=== PATIENT | female | born 1980 | race Caucasian/White ===

== ENCOUNTER 2016-10-14 08:51 | Inpatient (IN) ==
[~2016-10-14 08:51] MED LIST: Aminoglycoside Consult 1 EACH MC ONE
[2016-10-14] MEDS ORDERED: 0.9 % Sodium Chloride 1,000 ML IVC ONE ×3 (08:59→11:59)
[2016-10-14] MEDS ORDERED: Ipratropium/Albuterol Neb 3 ML IH ONE (09:00)
--- NOTE | 2016-10-14 09:12 | Emergency Department Note ---
Disposition Clinical Impression: Cough, Nausea & vomiting Disposition: Still a Patient Condition: Fair Referrals: Domingo Humphrey DO [Primary Care Provider] - Forms: Work/School Release, ED Satisfaction Letter Time of Disposition: 11:40 General Adult HPI - General Chief complaint: ED General Medical Stated complaint: General Illness Time Seen by Provider: 10/14/16 08:58 Source: patient Mode of arrival: private vehicle Limitations: no limitations Nursing Notes Reviewed: Yes Vital Signs Reviewed: Yes - History of Present Illness HPI Narrative: 36-year-old female patient presents to the emergency department with multiple complaints. Patient states that she has been ill for the last 4 days. She describes cough, nausea, vomiting and diarrhea. She also states a subjective fever and chills. She denies any additional complaints at this time. Pt Subjective Complaint: "ill" Onset (ago): day(s) (4) Location: other (Generalized) Radiation: non-radiation Pain Severity: severe Quality: aching, dull, constant Consistency: constant, Worsening Improves with: nothing Worsens with: nothing Associated symptoms: Reports: cough, fever/chills, nausea/vomiting Treatments Prior to Arrival: none - Related Data Home Medications Medication Instructions Recorded Confirmed Insulin ASPART [NovoLOG] 85 unit SQ AD 04/17/15 08/23/16 Labetalol [Trandate] 100 mg PO BID 04/17/15 08/23/16 Lisinopril [Zestril] 10 mg PO DAILY 04/17/15 08/23/16 Albuterol Sulfate [Albuterol 1 - 2 puff IH Q4HR PRN 06/19/15 08/23/16 Inhaler] Gabapentin [Neurontin] 800 mg PO TID 06/19/15 08/23/16 LORazepam [Ativan] 2 mg PO TID 06/19/15 08/23/16 Lamotrigine [Lamictal] 100 mg PO QAM 06/15/16 08/23/16 Estradiol 2 mg PO DAILY 08/03/16 08/23/16 Esomeprazole Magnesium [Nexium] 40 mg PO BID 08/23/16 08/23/16 Previous Rx's Medication Instructions Recorded Orphenadrine [Norflex] 100 mg PO BID #14 tablet.er 12/08/15 Ondansetron ODT [Zofran ODT] 4 mg SL Q6HR PRN #8 tab.rapdis 08/17/16 Sulfamethoxazole/Trimeth DS 1 each PO BID #20 tablet 08/23/16 [Bactrim DS] Cephalexin [Keflex] 500 mg PO TID #21 capsule 08/24/16 Allergies Allergy/AdvReac Type Severity Reaction Status Date / Time Cortisone Allergy Anaphylaxis Verified 08/24/16 12:01 ketorolac [From Toradol] Allergy Rash Verified 08/24/16 12:01 latex Allergy Hives Verified 08/24/16 12:01 metoclopramide [From Reglan] Allergy Anaphylaxis Verified 08/24/16 12:01 morphine Allergy Anaphylaxis Verified 08/24/16 12:01 tramadol [From Ultram] AdvReac Nausea Verified 08/24/16 12:01 Zolpidem [From Ambien] AdvReac Insomnia Verified 08/24/16 12:01 All systems ED: reviewed and negative except as stated. Constitutional: Reports: fever, chills Cardiovascular: Denies: chest pain Respiratory: Reports: cough, dyspnea, wheezes, hemoptysis Gastrointestinal: Reports: nausea, vomiting. Denies: abdominal pain Genitourinary: Denies: urgency, dysuria, frequency Musculoskeletal: Reports: myalgia. Denies: back pain, neck pain Integumentary: Denies: rash, abrasion, lesions Neurological: Denies: headache Psychiatric: Denies: anxiety, depression, suicidal thoughts, homicidal thoughts Past Medical History - Past Medical History Attestation: Yes The following information was validated with the patient. Source: patient, nursing notes reviewed Medical history: Reports: asthma, diabetes, GERD, hypertension Surgical history: Reports: appendectomy, cholecystectomy, hysterectomy, other ( lTKE, humeral nailing, T&A, hysterectomy , carpal tunnel BL.) Psychiatric history: Reports: anxiety, depression, panic disorder SENIOR ECONOMIST history: Reports: no SENIOR ECONOMIST history - Social History Smoking Status: Former smoker Smokeless Tobacco Status: No Alcohol use: Reports: none Drug use: Reports: none Physical Exam - General Limitations: no limitations General appearance: alert, in no apparent distress - Head Head exam: atraumatic, normocephalic, normal inspection - Eye Eye exam: Present: normal appearance, PERRL - Neck Neck exam: Present: normal inspection, full ROM, trachea midline - Chest Chest inspection: Present: normal inspection, symmetric chest wall rise, tenderness (With palpation of the right lateral/lower chest wall. Pain with inspiration.) - Expanded Respiratory Exam Location: wheezes: Lower, Upper, Right, rhonchi: Right, Upper, Lower - Cardiovascular Cardiovascular exam: Present: regular rate, normal rhythm, normal heart sounds - Abdominal Exam Abdominal exam: Present: soft, Non-Tender, normal bowel sounds - Extremities Exam Extremities exam: Present: normal inspection, full ROM. Absent: tenderness, pedal edema - Back Exam Back exam: Present: normal inspection, full ROM. Absent: tenderness - Neurological Exam Neurological exam: Present: alert, oriented X3 - Psychiatric Psychiatric exam: Present: normal affect, normal mood - Skin Skin exam: Present: warm, dry, intact, normal color Course Course Narrative: Care was transferred to Dr. Carrillo at 1120. - Reevaluation(s) Reevaluation #1: Patient continues to complain of pain. I discussed with patient that she would not be receiving any Dilaudid while she was here and evaluated. She remains mildly tachycardic. Patient has difficulty opening her eyes which suggests that she is currently under the influence of some type of drugs or alcohol. Patient currently denies this, however seems extremely drowsy and somnolent. Due to the tachycardia I have ordered a CTA of the chest to rule out pulmonary embolism versus pneumonia. Labs show mild dehydration. But no evidence of anemia or sepsis. Time: 10:43 Vital Signs Temperature 98.0 F 10/14/16 08:54 Pulse Rate 113 10/14/16 08:54 Respiratory Rate 18 10/14/16 08:54 Blood Pressure 120/64 10/14/16 08:54 O2 Sat by Pulse Oximetry 92 L 10/14/16 08:54 Temperature 98.0 F 10/14/16 08:54 Pulse Rate 120 10/14/16 10:27 Respiratory Rate 18 10/14/16 10:27 Blood Pressure 135/69 10/14/16 10:27 O2 Sat by Pulse Oximetry 96 10/14/16 10:27 Oxygen Delivery Oxygen Delivery Room Air Medical Decision Making - Lab Data Lab results reviewed: Yes I reviewed the patient's lab results. Result diagrams: 10/14/16 09:25 10/14/16 09:25 Lab Results 02/15/17 02/15/17 02/15/17 Range/Units 09:25 09:25 10:22 WBC 7.1 (4.3-11.1) K/mcL RBC 3.83 (3.82-4.97) M/mcL Hgb 11.4 L (11.5-15.4) g/dL Hct 33.9 L (35.3-44.9) % MCV 88.5 (83.0-100.0) fL MCH 29.8 (28.0-33.3) pg MCHC 33.6 (31.6-35.5) g/dL RDW 12.9 (11.5-14.5) % Plt Count 140 (140-400) K/mcL MPV 10.6 (9.4-12.4) fL Seg Neutrophils % 60.0 % Band Neutrophils % 18.0 H (0-4) % Lymphocytes % 8.0 % Monocytes % 12.0 % Basophils % 2.0 % Neutrophils # 5.5 (1.6-8.9) K/mcL Lymphocytes # 0.6 (0.6-4.6) K/mcL Monocytes # 0.9 (0.0-1.3) K/mcL Basophils # 0.1 (0.0-0.2) K/mcL Nucleated RBCs/100 WBC 0.3 H (0) /100 WBC Toxic Granulation Present A (Not Present) Platelet Estimate Slight Decrease L (Normal) Sodium 136 (136-145) mEq/L Potassium 4.0 (3.5-4.5) mEq/L Chloride 107 (98-109) mEq/L Carbon Dioxide 17 L (19-29) mEq/L BUN 27 H (7-20) mg/dL Creatinine 1.28 H (0.57-1.11) mg/dL Est GFR ( Amer) 58 L (> 60) Est GFR (Non-Af Amer) 47 L (> 60) BUN/Creatinine Ratio 21 (6-26) Glucose 168 H (70-99) mg/dL Calculated Osmolality 291 (280-300) Calcium 8.0 L (8.6-10.8) mg/dL Urine Color (Yellow) Urine Clarity (Clear) Urine pH (5.0-8.0) pH Units Ur Specific [place] (1.010-1.025) Urine Protein (Neg-Trace) mg/dL Urine Glucose (UA) (Normal) mg/dL Urine Ketones (Negative) mg/dL Urine Blood (Negative) Urine Nitrite (Negative) Urine Bilirubin (Negative) Urine Urobilinogen (Normal) mg/dL Ur Leukocyte Esterase (Negative) Urine Microscopic RBC (0-3) per hpf Urine Microscopic WBC (0-3) per hpf Ur Squamous Epith Cells (None-Few) per lpf Calcium Oxalate Crystal Urine Bacteria (None-Few) per hpf Hyaline Casts (None-Few) per lpf Ur Culture Indicated? (NO) Urine Test Negative (Negative) 10/14/16 Range/Units 10:26 WBC (4.3-11.1) K/mcL RBC (3.82-4.97) M/mcL Hgb (11.5-15.4) g/dL Hct (35.3-44.9) % MCV (83.0-100.0) fL MCH (28.0-33.3) pg MCHC (31.6-35.5) g/dL RDW (11.5-14.5) % Plt Count (140-400) K/mcL MPV (9.4-12.4) fL Seg Neutrophils % % Band Neutrophils % (0-4) % Lymphocytes % % Monocytes % % Basophils % % Neutrophils # (1.6-8.9) K/mcL Lymphocytes # (0.6-4.6) K/mcL Monocytes # (0.0-1.3) K/mcL Basophils # (0.0-0.2) K/mcL Nucleated RBCs/100 WBC (0) /100 WBC Toxic Granulation (Not Present) Platelet Estimate (Normal) Sodium (136-145) mEq/L Potassium (3.5-4.5) mEq/L Chloride (98-109) mEq/L Carbon Dioxide (19-29) mEq/L BUN (7-20) mg/dL Creatinine (0.57-1.11) mg/dL Est GFR ( Amer) (> 60) Est GFR (Non-Af Amer) (> 60) BUN/Creatinine Ratio (6-26) Glucose (70-99) mg/dL Calculated Osmolality (280-300) Calcium (8.6-10.8) mg/dL Urine Color Dark Yellow (Yellow) Urine Clarity Cloudy A (Clear) Urine pH 5.5 (5.0-8.0) pH Units Ur Specific [place] 1.017 (1.010-1.025) Urine Protein 30 H (Neg-Trace) mg/dL Urine Glucose (UA) 100 H (Normal) mg/dL Urine Ketones Negative (Negative) mg/dL Urine Blood Trace H (Negative) Urine Nitrite Positive A (Negative) Urine Bilirubin Moderate H (Negative) Urine Urobilinogen 2.0 H (Normal) mg/dL Ur Leukocyte Esterase Large H (Negative) Urine Microscopic RBC 5-15 H (0-3) per hpf Urine Microscopic WBC TNTC H (0-3) per hpf Ur Squamous Epith Cells Many H (None-Few) per lpf Calcium Oxalate Crystal Present Urine Bacteria Many H (None-Few) per hpf Hyaline Casts None Seen (None-Few) per lpf Ur Culture Indicated? YES A (NO) Urine Test (Negative) - Radiology Data Radiology results reviewed: Yes I reviewed the patient's radiology results.
[2016-10-14] MEDS ORDERED: *HR* Nalbuphine 20 MG/ML AMPUL IVP ONE (09:15)
[2016-10-14] MEDS ORDERED: *HR* Promethazine 25 MG/ML VIAL IVP ONE (09:33)
[2016-10-14 09:48] LABS: Hematocrit 33.9 % (35.3-44.9); Hemoglobin 11.4 g/dL (11.5-15.4); Mean Corpuscular HGB Conc 33.6 g/dL (31.6-35.5); Mean Corpuscular Hemoglobin 29.8 pg (28.0-33.3); Mean Corpuscular Volume 88.5 fL (83.0-100.0); Mean Platelet Volume 10.6 fL (9.4-12.4); Nucleated Red Blood Cells 0.3 /100 WBC (0); Platelet Count 140 K/mcL (140-400); Red Blood Count 3.83 M/mcL (3.82-4.97); Red Cell Distribution Width 12.9 % (11.5-14.5)
[2016-10-14 10:40] LABS: Basophils # 0.1 K/mcL (0.0-0.2); Lymphocytes # 0.6 K/mcL (0.6-4.6); Monocytes # 0.9 K/mcL (0.0-1.3); Neutrophils # 5.5 K/mcL (1.6-8.9); Toxic Granulation Present (Not Present)
[2016-10-14 10:41] LABS: Platelet Estimate Slight Decrease (Normal)
[2016-10-14 10:42] LABS: Bilirubin,Urine Moderate (Negative); Blood,Urine Trace (Negative); Clarity,Urine Cloudy (Clear); Color,Urine Dark Yellow (Yellow); Glucose,Urine (UA) 100 mg/dL (Normal); Ketones,Urine Negative (Negative); Leukocyte Esterase,Urine Large (Negative); Nitrite,Urine Positive (Negative); PH,Urine 5.5 pH Units (5.0-8.0); Protein,Urine 30 mg/dL (Neg-Trace); Specific Gravity,Urine 1.017 (1.010-1.025)
[2016-10-14 10:44] LABS: Bacteria,Urine Many per hpf (None-Few); Hyaline Casts,Urine None Seen per lpf (None-Few); Squamous Epithelial Cell,Urine Many per lpf (None-Few); WBC,Urine TNTC per hpf (0-3)
[2016-10-14 10:54] LABS: Calcium Oxalate Crystals,Urine Present
[2016-10-14] MEDS ORDERED: *HR* HYDROmorphone (PF) 1 MG/ML SYRINGE IVP ONE (11:32)
--- NOTE | 2016-10-14 11:37 | Emergency Department Note ---
Disposition Clinical Impression: Sepsis due to pneumonia Chest pain Qualifiers: Chest pain type: unspecified Qualified Code(s): R07.9 - Chest pain, unspecified UTI (urinary tract infection) Qualifiers: Urinary tract infection type: site unspecified Hematuria presence: with hematuria Qualified Code(s): N39.0 - Urinary tract infection, site not specified Disposition: Admitted As Inpatient Condition: Serious Referrals: Domingo Humphrey DO [Primary Care Provider] - Forms: ED Satisfaction Letter, Work/School Release Time of Disposition: 11:49 General Adult HPI - General Chief complaint: ED General Medical Stated complaint: Multiple Complaints Time Seen by Provider: 10/14/16 08:58 Source: patient Mode of arrival: private vehicle Limitations: no limitations - History of Present Illness Location: other (Generalized) Pain Scale: 9 Quality: aching, dull, constant Improves with: nothing Worsens with: nothing Associated symptoms: Reports: cough, fever/chills, nausea/vomiting Treatments Prior to Arrival: none - Related Data Home Medications Medication Instructions Recorded Confirmed Insulin ASPART [NovoLOG] 85 unit SQ AD 04/17/15 08/23/16 Labetalol [Trandate] 100 mg PO BID 04/17/15 08/23/16 Lisinopril [Zestril] 10 mg PO DAILY 04/17/15 08/23/16 Albuterol Sulfate [Albuterol 1 - 2 puff IH Q4HR PRN 06/19/15 08/23/16 Inhaler] Gabapentin [Neurontin] 800 mg PO TID 06/19/15 08/23/16 LORazepam [Ativan] 2 mg PO TID 06/19/15 08/23/16 Lamotrigine [Lamictal] 100 mg PO QAM 06/15/16 08/23/16 Estradiol 2 mg PO DAILY 08/03/16 08/23/16 Esomeprazole Magnesium [Nexium] 40 mg PO BID 08/23/16 08/23/16 Previous Rx's Medication Instructions Recorded Orphenadrine [Norflex] 100 mg PO BID #14 tablet.er 12/08/15 Ondansetron ODT [Zofran ODT] 4 mg SL Q6HR PRN #8 tab.rapdis 08/17/16 Sulfamethoxazole/Trimeth DS 1 each PO BID #20 tablet 08/23/16 [Bactrim DS] Cephalexin [Keflex] 500 mg PO TID #21 capsule 08/24/16 Allergies Allergy/AdvReac Type Severity Reaction Status Date / Time Cortisone Allergy Anaphylaxis Verified 08/24/16 12:01 ketorolac [From Toradol] Allergy Rash Verified 08/24/16 12:01 latex Allergy Hives Verified 08/24/16 12:01 metoclopramide [From Reglan] Allergy Anaphylaxis Verified 08/24/16 12:01 morphine Allergy Anaphylaxis Verified 08/24/16 12:01 tramadol [From Ultram] AdvReac Nausea Verified 08/24/16 12:01 Zolpidem [From Ambien] AdvReac Insomnia Verified 08/24/16 12:01 Constitutional: Reports: fever, chills Cardiovascular: Denies: chest pain Respiratory: Reports: cough, dyspnea, wheezes, hemoptysis Gastrointestinal: Reports: nausea, vomiting. Denies: abdominal pain Genitourinary: Denies: urgency, dysuria, frequency Musculoskeletal: Reports: myalgia. Denies: back pain, neck pain Integumentary: Denies: rash, abrasion, lesions Neurological: Denies: headache Psychiatric: Denies: anxiety, depression, suicidal thoughts, homicidal thoughts Past Medical History - Past Medical History Medical history: Reports: asthma, diabetes, GERD, hypertension Surgical history: Reports: appendectomy, cholecystectomy, hysterectomy, other ( lTKE, humeral nailing, T&A, hysterectomy , carpal tunnel BL.) Psychiatric history: Reports: anxiety, depression, panic disorder RESIDENTIAL SUPPORT WORKER history: Reports: no RESIDENTIAL SUPPORT WORKER history - Social History Smoking Status: Former smoker Smokeless Tobacco Status: No Alcohol use: Reports: none Drug use: Reports: none Physical Exam - General Limitations: no limitations General appearance: alert, in no apparent distress Course Vital Signs Temperature 98.0 F 10/14/16 08:54 Pulse Rate 113 10/14/16 08:54 Respiratory Rate 18 10/14/16 08:54 Blood Pressure 120/64 10/14/16 08:54 O2 Sat by Pulse Oximetry 92 L 10/14/16 08:54 Temperature 98.0 F 10/14/16 08:54 Pulse Rate 130 10/14/16 12:00 Respiratory Rate 22 10/14/16 12:00 Blood Pressure 104/60 10/14/16 12:00 O2 Sat by Pulse Oximetry 92 L 10/14/16 12:00 Oxygen Delivery Oxygen Delivery Room Air Medical Decision Making - Medical Records Medical records reviewed: Yes I reviewed the patient's medical records. - Lab Data Lab results reviewed: Yes I reviewed the patient's lab results. Result diagrams: 10/14/16 09:25 10/14/16 09:25 Lab Results 10/14/16 10/14/16 10/14/16 Range/Units 09:25 09:25 10:22 WBC 7.1 (4.3-11.1) K/mcL RBC 3.83 (3.82-4.97) M/mcL Hgb 11.4 L (11.5-15.4) g/dL Hct 33.9 L (35.3-44.9) % MCV 88.5 (83.0-100.0) fL MCH 29.8 (28.0-33.3) pg MCHC 33.6 (31.6-35.5) g/dL RDW 12.9 (11.5-14.5) % Plt Count 140 (140-400) K/mcL MPV 10.6 (9.4-12.4) fL Seg Neutrophils % 60.0 % Band Neutrophils % 18.0 H (0-4) % Lymphocytes % 8.0 % Monocytes % 12.0 % Basophils % 2.0 % Neutrophils # 5.5 (1.6-8.9) K/mcL Lymphocytes # 0.6 (0.6-4.6) K/mcL Monocytes # 0.9 (0.0-1.3) K/mcL Basophils # 0.1 (0.0-0.2) K/mcL Nucleated RBCs/100 WBC 0.3 H (0) /100 WBC Toxic Granulation Present A (Not Present) Platelet Estimate Slight Decrease L (Normal) Sodium 136 (136-145) mEq/L Potassium 4.0 (3.5-4.5) mEq/L Chloride 107 (98-109) mEq/L Carbon Dioxide 17 L (19-29) mEq/L BUN 27 H (7-20) mg/dL Creatinine 1.28 H (0.57-1.11) mg/dL Est GFR ( Amer) 58 L (> 60) Est GFR (Non-Af Amer) 47 L (> 60) BUN/Creatinine Ratio 21 (6-26) Glucose 168 H (70-99) mg/dL Calculated Osmolality 291 (280-300) Calcium 8.0 L (8.6-10.8) mg/dL Urine Color (Yellow) Urine Clarity (Clear) Urine pH (5.0-8.0) pH Units Ur Specific [place] (1.010-1.025) Urine Protein (Neg-Trace) mg/dL Urine Glucose (UA) (Normal) mg/dL Urine Ketones (Negative) mg/dL Urine Blood (Negative) Urine Nitrite (Negative) Urine Bilirubin (Negative) Urine Urobilinogen (Normal) mg/dL Ur Leukocyte Esterase (Negative) Urine Microscopic RBC (0-3) per hpf Urine Microscopic WBC (0-3) per hpf Ur Squamous Epith Cells (None-Few) per lpf Calcium Oxalate Crystal Urine Bacteria (None-Few) per hpf Hyaline Casts (None-Few) per lpf Ur Culture Indicated? (NO) Urine Test Negative (Negative) 10/14/16 Range/Units 10:26 WBC (4.3-11.1) K/mcL RBC (3.82-4.97) M/mcL Hgb (11.5-15.4) g/dL Hct (35.3-44.9) % MCV (83.0-100.0) fL MCH (28.0-33.3) pg MCHC (31.6-35.5) g/dL RDW (11.5-14.5) % Plt Count (140-400) K/mcL MPV (9.4-12.4) fL Seg Neutrophils % % Band Neutrophils % (0-4) % Lymphocytes % % Monocytes % % Basophils % % Neutrophils # (1.6-8.9) K/mcL Lymphocytes # (0.6-4.6) K/mcL Monocytes # (0.0-1.3) K/mcL Basophils # (0.0-0.2) K/mcL Nucleated RBCs/100 WBC (0) /100 WBC Toxic Granulation (Not Present) Platelet Estimate (Normal) Sodium (136-145) mEq/L Potassium (3.5-4.5) mEq/L Chloride (98-109) mEq/L Carbon Dioxide (19-29) mEq/L BUN (7-20) mg/dL Creatinine (0.57-1.11) mg/dL Est GFR ( Amer) (> 60) Est GFR (Non-Af Amer) (> 60) BUN/Creatinine Ratio (6-26) Glucose (70-99) mg/dL Calculated Osmolality (280-300) Calcium (8.6-10.8) mg/dL Urine Color Dark Yellow (Yellow) Urine Clarity Cloudy A (Clear) Urine pH 5.5 (5.0-8.0) pH Units Ur Specific [place] 1.017 (1.010-1.025) Urine Protein 30 H (Neg-Trace) mg/dL Urine Glucose (UA) 100 H (Normal) mg/dL Urine Ketones Negative (Negative) mg/dL Urine Blood Trace H (Negative) Urine Nitrite Positive A (Negative) Urine Bilirubin Moderate H (Negative) Urine Urobilinogen 2.0 H (Normal) mg/dL Ur Leukocyte Esterase Large H (Negative) Urine Microscopic RBC 5-15 H (0-3) per hpf Urine Microscopic WBC TNTC H (0-3) per hpf Ur Squamous Epith Cells Many H (None-Few) per lpf Calcium Oxalate Crystal Present Urine Bacteria Many H (None-Few) per hpf Hyaline Casts None Seen (None-Few) per lpf Ur Culture Indicated? YES A (NO) Urine Test (Negative) - Radiology Data Radiology results reviewed: Yes I reviewed the patient's radiology results. - EKG Data EKG #1 EKG attestation: Yes I reviewed and interpreted this EKG. EKG results narrative: sinus tach [address] changes. MT 159 QRS 90 QT/QTC 337/410 Critical Care Time Critical Care Time: Yes Total Critical Care Time: 30 Attestation: Patient meets criteria for sepsis. Antibiotics for community acquired pneumonia initiated. Fluid resuscitation at 30 mL per KG not entertained due to no hypotension. Patient to be admitted Attestation Statement - Attestation Attestation: I examined this patient and my medical decision-making was reviewed with the FACE WORKER/PA/Advanced Practice Nurse/Resident Physician. I agree with the documented findings, disposition and treatment plan as described except to the extent set forth below. 11:35: The patient was endorsed to me by the mid-level provider Cal Torres at 11:30 AM at my request. She was endorsed to me pending CT chest. On exam, the patient is anxious appearing anteriorly. She is tachycardic. I reviewed her labs indicating a left shift and a UTI. I am concerned for sepsis so I ordered a lactate and blood cultures. I also ordered an EKG which is pending. She is already being hydrated but I will not order 30 mL per KG because she is not hypotensive. 11:47: CTA resulted. Multifocal pneumonia present. Patient meets criteria for sepsis. Antibiotics for community acquired pneumonia ordered. I will request admission to the medicine service
[2016-10-14] MEDS ORDERED: Azithromycin 500 MG in D5% in Water 250 ML IVPB ONE (11:45)
[2016-10-14] MEDS ORDERED: MOM Conc 10 ML UD.LIQ PO PRN (13:38)
[2016-10-14] MEDS ORDERED: Mag Hydrox/Al Hydrox/Simeth 30 ML UDC PO PRN (13:38)
[2016-10-14] MEDS ORDERED: Ondansetron 4 MG/2 ML VIAL IVP PRN (13:38)
[2016-10-14] MEDS ORDERED: Naloxone 0.4 MG/ML INJ IVP PRN (13:38)
[2016-10-14] MEDS ORDERED: Dextrose Gel 15 GM PO PRN ×2 (13:41)
[2016-10-14] MEDS ORDERED: *HR* Dextrose 50 % in Water (Syg) 50 ML SYRINGE IVP PRN (13:41)
[2016-10-14] MEDS ORDERED: D5% in Water 1,000 ML IV PRN (13:41)
--- NOTE | 2016-10-14 13:52 | Internal Med History&Physical ---
<Yaneli Roblero Sreedhar - Last Filed: 10/14/16 16:24> Date of Encounter: 10/14/16 Time of Encounter: 14:10 Assessment and Plan (1) Sepsis due to pneumonia Current visit: Yes Status: Acute Pt with 3-4 day history of flu-like symptoms, n/v/d, fatige, and body aches. Symptoms worse today. Pt has been afebrile, tachycardic, so far normotensive, and multifocal pneumonia per CT. Pt reports subjective fevers and chills at home. Pt was given Zithromax 500mg IV and Rocephin 1 gram IV in ED. Fluid boluses were held in the ED due to stable bp. Continuous pulse oximetry Continuous telemetry IV fluids at 75ml/hour Vancomycin 1 gram q12 hours (2) UTI (urinary tract infection) Current visit: Yes Status: Acute Urine today with many WBCs, leukocyte esterase, Many RBC, positive for nitrites , and TNTC bacteria. Pt had 1 week history of suprapubic pain and isabel flank pain , however she did not have dysuria or sameer hematuria. Vancomycin 1 gram IV q12 h IVF as above Repeat UA prior to discharge Qualifiers: Urinary tract infection type: acute cystitis Hematuria presence: with hematuria Qualified Code(s): N30.01 - Acute cystitis with hematuria (3) Respiratory failure with hypoxia Current visit: Yes Status: Acute Room air sats around 92%. Sats remain around 94-95% on 2L 02/nc. Maintain 02 and titrate to keep sats > 92%. Qualifiers: Chronicity: acute Qualified Code(s): J96.01 - Acute respiratory failure with hypoxia (4) Diabetes mellitus type 1, uncontrolled, insulin dependent Current visit: No Status: Chronic Serum glucose 168 today. Pt says that she keeps her glucose between 150-160mg/ dl. Pt has pump, Novolog 85units/day. Will continue pump with pt checking blood sugars, report to nurse abrahan Qualifiers: Diabetes mellitus complication status: without complication (5) Acute kidney injury Current visit: No Status: Acute Pt has had history of this in the past with prior illness, but no CKD. Today creatinine 1.28. IVF as above Will avoid NSAIDs and nephrotoxins Monitor labs in a.m. (6) Chest pain Current visit: Yes Status: Acute Pt reports 8/10 sharp stabbing pain to R upper chest with radiation to R lateral ribs, and R mid back. Pain is constant, worse with cough. R upper chest tender to palpation. I discussed with pt that pain will decrease as infection clears and that she may still have rib/intercostal pain, but it will improve with time. Tylenol prn pain Qualifiers: Chest pain type: intercostal pain Qualified Code(s): R07.82 - Intercostal pain Internal Medicine - H&P: HPI Chief complaint: cough, congestion, x 4 days Admitted From: Home Plans for Post Hospital Care: Home History of present illness: Ms. Gaming is a 36 year old female with extensive medical history including HTN , Type I DM, hyperlipidemia, DKA, gastroparesis, and BPD. She presents to the ED today with a 3-4 day history of sneezing, cough, R chest pain, rhinorrhea, fatigue, n/v/d, and body aches. Today at 0530 all of the symptoms became worse and the chest pain became worse. Pain starts in upper R chest, radiates to R lateral ribs, and to R mid back. Describes as sharp and stabbing, rates it 8/ 10. Pt has productive cough with brown/blood tinged sputum. Her room air sats were about 92% on arrival and they stay around 94-95% with 2L 02 n/c. She also reports a 1 week history of low, suprapubic pain with isabel flank pain. Urine today shows UTI with many bacteria, WBCs, Leuk esterase. She denies dysuria or sameer hematuria. Pt's bp very sensitive to pain medications that she was given in ED. Ordered po Percocet for p 8-10/10 pain only, held bp medications x Labetalol and decreased Xanax dose. Past Med Surg Social Fam HX - Past Medical History Medical history: asthma, diabetes, GERD, hypertension Psychiatric history: anxiety, depression, panic disorder - Past Surgical History Surgical History: appendectomy, cholecystectomy, hysterectomy, other (lTKE, humeral nailing, T&A, hysterectomy , carpal tunnel BL.) - Social History Smoking Status: Former smoker Smokeless Tobacco Status: No Alcohol use: none Drug use: none - Family History Mother Living Status: Still Living Hx Family Cardiac Disorders: Yes (HTN) Father Living Status: Still Living Hx Family Cardiac Disorders: Yes (HTN) Hx Family Respiratory Disorders: Yes Internal Medicine - H&P: Meds Insulin ASPART [NovoLOG] 0 unit .ROUTE AD 04/17/15 [History] Labetalol [Trandate] 100 mg PO BID 04/17/15 [History] Lisinopril [Zestril] 10 mg PO DAILY 04/17/15 [History] Albuterol Sulfate [Albuterol Inhaler] 1 - 2 puff IH Q4HR PRN 06/19/15 [History] Gabapentin [Neurontin] 800 mg PO TID 06/19/15 [History] LORazepam [Ativan] 2 mg PO TID 06/19/15 [History] Orphenadrine [Norflex] 100 mg PO BID #14 tablet.er 12/08/15 [Rx] Estradiol 2 mg PO DAILY 08/03/16 [History] Ondansetron ODT [Zofran ODT] 4 mg SL Q6HR PRN #8 tab.rapdis 08/17/16 [Rx] Esomeprazole Magnesium [Nexium] 40 mg PO BID 08/23/16 [History] Melatonin/Pyridoxine HCl (B6) [Melatonin 5 mg Tablet] 10 mg PO HS PRN 10/14/16 [ History] Allergies Cortisone Allergy (Verified 08/24/16 12:01) Anaphylaxis ketorolac [From Toradol] Allergy (Verified 10/14/16 13:13) Anaphylaxis latex Allergy (Verified 08/24/16 12:01) Hives metoclopramide [From Reglan] Allergy (Verified 08/24/16 12:01) Anaphylaxis morphine Allergy (Verified 08/24/16 12:01) Anaphylaxis tramadol [From Ultram] Adverse Reaction (Verified 08/24/16 12:01) Nausea Zolpidem [From Ambien] Adverse Reaction (Verified 08/24/16 12:01) Insomnia All Systems PM: A 10-system review of systems was performed and is negative for pertinent findings except as documented above in the HPI. - Constitutional Constitutional: chills, fatigue, fever(s) - EENT Ears: no ear pain Nose, mouth and throat: nasal congestion, nasal discharge, no hoarseness, no sore throat - Cardiovascular Cardiovascular ROS IM: chest pain, dyspnea, no edema, no lightheadedness, no palpitations - Respiratory Respiratory: cough, hemoptysis, wheezing, pain on inspiration, chest congestion , excessive phlegm production, pain with cough - Gastrointestinal Gastrointestinal: abdominal pain, diarrhea, nausea, vomiting - Genitourinary Genitourinary: pelvic pain, no dysuria, no urinary hesitancy, no urinary incontinence, no urinary urgency - Musculoskeletal Musculoskeletal ROS IM: myalgias - Constitutional Vitals: Temp Pulse Resp BP Pulse Ox 98.0 F 124 16 106/63 95 10/14/16 08:54 10/14/16 13:15 10/14/16 13:15 10/14/16 13:15 10/14/16 13:15 General appearance: Present: A&O X 3, pleasant Exam: Pt appears to be in mild distress from pain and frequent cough. No respiratory distress noted. - Eye Eye exam: Present: PERRL, conjuntiva pink - ENT ENT exam: Present: mucous membranes moist, normal external ear exam - Neck Neck exam general surgery: Absent: lymphadenopathy, tenderness - Respiratory Respiratory exam: Present: decreased breath sounds, rhonchi, wheezes. Absent: chest wall tenderness, respiratory distress Additional comments: Pt has ronchi throughout and faint expiratory wheezing noted in isabel apices. - Cardiovascular Cardiovascular exam: Present: RRR, +S1, +S2, tachycardia - GI/Abdominal GI/Abdominal exam: Present: normal bowel sounds. Absent: splenomegaly, tenderness - Neurological Exam Neurological exam: Present: alert, oriented X3, no focal deficits, strengths equal and symetr throughout Internal Med - H&P Results - Labs CBC & Chem 7: 10/14/16 09:25 10/14/16 09:25 Labs: Cardiac Enzymes 10/14/16 Range/Units 12:40 Troponin I 0.00 (0-0.03) ng/mL - EKG Data EKG shows normal: sinus rhythm Rate: tachycardia - EKG Data Prior EKG available for review: yes When compared to previous EKG: there is no significant change EKG comments: 10/14/16 13:57 Sinus tachycardia Rate 123 NM int 159 QRS 90 <Sophia Rodriguez - Last Filed: 10/15/16 09:21> Date of Encounter: 10/15/16 Internal Medicine - H&P: HPI History of present illness: Ms. Gaming is a 36 year old female All Systems PM: A 10-system review of systems was performed and is negative for pertinent findings except as documented above in the HPI. - Constitutional Vitals: Temp Pulse Resp BP Pulse Ox 98.9 F 96 18 124/77 100 10/15/16 07:16 10/15/16 07:16 10/15/16 07:16 10/15/16 07:16 10/15/16 08:00 Internal Med - H&P Results - Labs CBC & Chem 7: 10/15/16 07:01 10/15/16 05:43 Labs: Short CBC 10/15/16 Range/Units 07:01 WBC 8.9 (4.3-11.1) K/mcL Hgb 10.4 L (11.5-15.4) g/dL Hct 30.3 L (35.3-44.9) % Plt Count 120 L (140-400) K/mcL BMP 10/15/16 05:43 Sodium 136 Potassium 4.1 Chloride 113 H Carbon Dioxide 15 L BUN 21 H Creatinine 0.87 Glucose 134 H Calcium 7.6 L - Attending Attestation I examined this patient and reviewed laboratory, imaging and all diagnostic data. My medical decision-making was reviewed with JOVANY Roblreo. I agree with the documented findings, disposition and treatment plan as described above. 36- year-old female with past medical history of HTN, Type I DM on insulin pump, and gastroparesis. Patient failed outpatient community-acquired pneumonia treatment. CT of the chest revealed multifocal pneumonia. Lactic acid was mildly elevated. She was admitted with diagnosis of sepsis source multifocal pneumonia and started on IV Levaquin and IV fluid resuscitation. Blood cultures are pending.
[2016-10-14] MEDS ORDERED: Albuterol 2.5 MG/3 ML NEBULIZER IH PRN (14:21)
[2016-10-14] MEDS ORDERED: INSULIN ASPART SQ SCH (14:30)
[2016-10-14] MEDS: Acetaminophen 325 MG TABLET PO PRN ×2 (14:51→20:18)
[2016-10-14] MEDS ORDERED: 0.9 % Sodium Chloride 1,000 ML IVC STA (14:56)
[2016-10-14] MEDS ORDERED: Gabapentin 400 MG CAPSULE PO SCH (15:00)
[2016-10-14] MEDS ORDERED: *HR* LORazepam 1 MG TABLET PO SCH (15:00)
[2016-10-14] MEDS ORDERED: Vancomycin 1,000 MG in D5% in Water 250 ML IVPB SCH (15:00)
[2016-10-14] MEDS ORDERED: Ipratropium/Albuterol Neb 3 ML IH SCH (16:00)
[2016-10-14] MEDS ORDERED: *HR* OxyCODONE/APAP 5/325 TABLET PO PRN (16:22)
[2016-10-14] MEDS: 0.9 % Sodium Chloride 1,000 ML IVC SCH (16:35)
[2016-10-14] MEDS: *HR* LORazepam 1 MG TABLET PO SCH ×2 (16:36→20:19)
[2016-10-14] MEDS: Levalbuterol Neb 0.63 MG/3 ML IH SCH ×2 (17:15→20:55)
[2016-10-14 18:08] LABS: BUN/Creatinine Ratio 20 (6-26); Blood Urea Nitrogen 22 mg/dL (7-20); Calcium 7.8 mg/dL (8.6-10.8); Carbon Dioxide 19 mEq/L (19-29); Chloride 110 mEq/L (98-109); Glucose 80 mg/dL (70-99); Osmolality,Calculated 290 (280-300); Potassium 3.9 mEq/L (3.5-4.5); Sodium 139 mEq/L (136-145); eGFR For African Americans > 60 (> 60); eGFR For Non-African Americans 58 (> 60)
[2016-10-14] MEDS ORDERED: Orphenadrine 100 MG TABLET.ER PO SCH (21:00)
[2016-10-15] MEDS: 0.9 % Sodium Chloride 1,000 ML IVC SCH (00:28)
[2016-10-15] MEDS: Levalbuterol Neb 0.63 MG/3 ML IH SCH ×4 (03:38→22:49)
[2016-10-15] MEDS ORDERED: *HR* Enoxaparin 30 MG/0.3 ML SYRINGE SQ SCH (06:00)
[2016-10-15 06:13] LABS: Blood Urea Nitrogen 21 mg/dL (7-20); Carbon Dioxide 15 mEq/L (19-29); Chloride 113 mEq/L (98-109); Glucose 134 mg/dL (70-99); Osmolality,Calculated 287 (280-300); Potassium 4.1 mEq/L (3.5-4.5); Sodium 136 mEq/L (136-145)
[2016-10-15 06:56] LABS: BUN/Creatinine Ratio 24 (6-26); Calcium 7.6 mg/dL (8.6-10.8); eGFR For African Americans > 60 (> 60); eGFR For Non-African Americans > 60 (> 60)
[2016-10-15 07:20] LABS: Hematocrit 30.3 % (35.3-44.9); Hemoglobin 10.4 g/dL (11.5-15.4); Immature Platelets 4.6 % (1.1-6.1); Mean Corpuscular HGB Conc 34.3 g/dL (31.6-35.5); Mean Corpuscular Hemoglobin 30.5 pg (28.0-33.3); Mean Platelet Volume 10.8 fL (9.4-12.4); Nucleated Red Blood Cells 0.2 /100 WBC (0); Platelet Count 120 K/mcL (140-400); Red Blood Count 3.41 M/mcL (3.82-4.97); Red Cell Distribution Width 13.3 % (11.5-14.5)
[2016-10-15 07:31] LABS: Mean Corpuscular Volume 88.9 fL (83.0-100.0)
[2016-10-15] MEDS ORDERED: *HR* OxyCODONE/APAP 10/325 TABLET PO PRN (08:35)
[2016-10-15] MEDS ORDERED: *HR* OxyCODONE/APAP 5/325 TABLET PO PRN (08:35)
[2016-10-15] MEDS: *HR* LORazepam 1 MG TABLET PO SCH ×3 (09:07→20:23)
[2016-10-15] MEDS: Levofloxacin 750 MG/150 ML 750 MG/150 ML BAG IVPB SCH (09:07)
[2016-10-15 09:22] LABS: Amphetamine Screen,Urine Negative ng/mL (Cutoff=1000); Barbiturate Screen,Urine Negative ng/mL (Cutoff=200); Benzodiazepines Screen,Urine Negative ng/mL (Cutoff=200); Cannabinoid Screen,Urine Positive ng/mL (Cutoff = 50); Cocaine Screen,Urine Negative ng/mL (Cutoff= 300); Opiate Screen,Urine Positive ng/mL (Cutoff=300); Phencyclidine Screen,Urine Negative ng/mL (Cutoff=25)
[2016-10-15] MEDS: Promethazine 12.5 MG in 0.9 % Sodium Chloride 50 ML IVPB PRN ×2 (09:22→20:23)
[2016-10-15 11:50] LABS: Dohle Bodies Present (Not Present); Monocytes # 0.4 K/mcL (0.0-1.3); Neutrophils # 7.3 K/mcL (1.6-8.9); Toxic Granulation Present (Not Present); Toxic Vacuolation Present (Not Present)
[2016-10-15 11:51] LABS: Platelet Estimate Slight Decrease (Normal)
[2016-10-15] MEDS ORDERED: *HR* OxyCODONE Immed Rel 15 MG TABLET PO PRN (13:25)
[2016-10-15] MEDS: OWN INSULIN PUMP SQ SCH (13:53)
--- NOTE | 2016-10-15 15:30 | Internal Med Progress Note ---
<Bradley Corcoran - Last Filed: 10/15/16 15:26> Date of Encounter: 10/15/16 Time of Encounter: 15:26 - Assessment and plan (1) Sepsis due to pneumonia Current Visit: Yes Status: Acute Assessment and plan: 36-year-old female presented with 4 days onset of productive cough, fever, chills, nausea, vomiting, body aches, fatigue. On admission her white blood cell count is 8.9, she has band neutrophils 38. Creatinine initially was 1.28 which decreased to 0.87. Initial lactic acid was 2.0. Presenting heart rate was 113. And respiratory rate over 20. CT chest showed right upper lobe multifocal pneumonia. Patient was started on levofloxacin for community acquired pneumonia. Influenza screening was negative. Blood cultures have been sent. Patient was started on Tessalon for cough. Today patient's lung exam revealed diffuse rhonchi and wheezing. Patient is on 2 L oxygen saturating above 90%. We will continue diabetic diet. Continue pain management with Percocet (2) UTI (urinary tract infection) Current Visit: Yes Status: Acute Assessment and plan: Patient complains of suprapubic pain and dysuria. Urine culture shows growth of gram-negative rivas. Urinalysis shows white blood cell, bacteria and leukocyte esterase. Patient is currently being treated with IV Levaquin. We will continue this antibiotic until he culture sensitivities come back and then treat her accordingly. Patient has good urine production. Qualifiers: Urinary tract infection type: acute cystitis Hematuria presence: with hematuria Qualified Code(s): N30.01 - Acute cystitis with hematuria (3) Respiratory failure with hypoxia Current Visit: Yes Status: Acute Assessment and plan: This is secondary to community-acquired pneumonia. Patient requires oxygen supplementation to maintain saturations above 90%. We will also continue bronchodilators. Qualifiers: Chronicity: acute Qualified Code(s): J96.01 - Acute respiratory failure with hypoxia (4) Diabetes mellitus type 1 with complications Current Visit: Yes Status: Chronic Assessment and plan: Patient has history of type 1 diabetes. She has a pain pump. Patient's correction factor is 15. Her basal insulin level is 48 units. Patient is able to monitor her own blood sugar appropriately. We will continue her on her insulin pump. Continue diabetic diet. (5) Gastroparesis due to DM Current Visit: Yes Status: Chronic Assessment and plan: Patient has gastroparesis due to her type 1 diabetes. She is being treated with Phenergan for nausea. (6) Generalized anxiety disorder Current Visit: Yes Status: Chronic Assessment and plan: Patient says she has generalized anxiety disorder and at home was treated with 2 mg Ativan when necessary every 6 hours. I extensively talked to the patient about trying safer medications that are less addictive when she is discharged for her anxiety disorder. Patient understood our conversation. (7) Hypertension Current Visit: No Status: Chronic Assessment and plan: Patient's blood pressure has been controlled at 120/60 since admission. We will continue labetalol . We will restart her lisinopril as patient's history of present illness has resolved. Qualifiers: Hypertension type: essential hypertension Qualified Code(s): I10 - Essential (primary) hypertension - Subjective Interval history: 35-year-old female with history of type 1 diabetes, hypertension, hyperlipidemia and gastroparesis presents with 4 days of cough right upper chest pain, fatigue, muscle aches. Patient said she had productive cough with brown/bloods tinged sputum. She was satting at 92% on 2 L O2. Patient is not on oxygen at home. Furthermore she also reported suprapubic pain and bilateral flank pain. CT chest shows multifocal pneumonia on the right and urine shows UTI with many bacteria, white blood cells, leukocyte esterase. Patient was given IV Dilaudid in the ED for pain however her blood pressure dropped very rapidly. Patient should only be given by mouth pain medication. This morning patient still states she has right chest pain. She has not had any improvement in her cough. Last night patient had a temperature of 100.1. Patient states she still has brown sputum production and pain with cough and deep inspiration. She denies any chest pain, dizziness, abdominal pain, blurry vision, leg cramps. She still is fatigued, and has body aches. - Constitutional Vitals: Temp Pulse Resp BP Pulse Ox 98.8 F 85 21 126/72 100 10/15/16 12:02 10/15/16 12:02 10/15/16 12:02 10/15/16 12:10/15/16 12:02 General appearance: Present: A&O X 3, pleasant - Head Head exam: Present: atraumatic, normocephalic - Eye Eye exam: Present: PERRL, conjuntiva pink, sclera anicteric - Neck Neck exam general surgery: Present: supple, trachea midline. Absent: lymphadenopathy - Respiratory Respiratory exam: Present: accessory muscle use, decreased breath sounds, rales , rhonchi, wheezes - Cardiovascular Cardiovascular exam: Present: RRR, +S1, +S2. Absent: diastolic murmur, gallop, rubs, systolic murmur - GI/Abdominal GI/Abdominal exam: Present: normal bowel sounds, soft, no peritoneal signs. Absent: distended, tenderness - Extremities Exam Extremities exam: Present: warm, radial pulses palpable and symetrical. Absent : calf tenderness, cyanotic, pedal edema - Neurological Exam Neurological exam: Present: CN II-XII intact, oriented X3, no focal deficits. Absent: pronater drift, facial droop, speech deficit - Skin Skin exam: Present: dry, intact Internal Medicine: Result - Labs CBC & Chem 7: 10/15/16 07:01 10/15/16 05:43 Labs: Short CBC 10/15/16 Range/Units 07:01 WBC 8.9 (4.3-11.1) K/mcL Hgb 10.4 L (11.5-15.4) g/dL Hct 30.3 L (35.3-44.9) % Plt Count 120 L (140-400) K/mcL Neutrophils # 7.3 (1.6-8.9) K/mcL BMP 10/15/16 05:43 Sodium 136 Potassium 4.1 Chloride 113 H Carbon Dioxide 15 L BUN 21 H Creatinine 0.87 Glucose 134 H Calcium 7.6 L Consult Discharge Plan - Plan Referrals: Domingo Humphrey DO [Primary Care Provider] - <Sherman Adames - Last Filed: 10/16/16 13:38> Date of Encounter: 10/16/16 - Assessment and plan (1) Respiratory failure with hypoxia Current Visit: Yes Status: Acute Qualifiers: Chronicity: acute Qualified Code(s): J96.01 - Acute respiratory failure with hypoxia (2) Sepsis due to pneumonia Current Visit: Yes Status: Acute (3) UTI (urinary tract infection) Current Visit: Yes Status: Acute Qualifiers: Urinary tract infection type: acute cystitis Hematuria presence: with hematuria Qualified Code(s): N30.01 - Acute cystitis with hematuria (4) Diabetes mellitus type 1 with complications Current Visit: Yes Status: Chronic (5) Gastroparesis due to DM Current Visit: Yes Status: Chronic (6) Generalized anxiety disorder Current Visit: Yes Status: Chronic - Constitutional Vitals: Temp Pulse Resp BP Pulse Ox 98.5 F 85 20 116/75 97 10/16/16 11:31 10/16/16 11:31 10/16/16 11:31 10/16/16 11:31 10/16/16 11:31 Internal Medicine: Result - Labs CBC & Chem 7: 10/16/16 08:51 10/16/16 08:51 Labs: Short CBC 10/16/16 Range/Units 08:51 WBC 8.6 (4.3-11.1) K/mcL Hgb 10.0 L (11.5-15.4) g/dL Hct 30.4 L (35.3-44.9) % Plt Count 154 (140-400) K/mcL Neutrophils # 7.0 (1.6-8.9) K/mcL BMP 10/16/16 08:51 Sodium 134 L Potassium 4.1 Chloride 107 Carbon Dioxide 16 L BUN 21 H Creatinine 0.93 Glucose 341 H Calcium 8.2 L - Attending Attestation I examined this patient and my medical decision-making was reviewed with the Resident Physician on 10/15/16. I agree with the documented findings, disposition and treatment plan as described except to the extent set forth below. Ms Gaming is currently admitted for extensive community acquired pneumonia. She remains moderate to high risk due to potential for worsening respiratory status. Ms. Gaming continues to have pain issues. She is coughing and trying to bring up sputum. Exam Alert. Heart reg Lungs with rhonchi R I/P 1. Pneumonia 2. Pain due to pneumonia 3. UTI Further diagnoses and plan as above.
[2016-10-15] MEDS: Benzonatate 100 MG CAPSULE PO PRN (18:45)
[2016-10-15] MEDS ORDERED: Orphenadrine 100 MG TABLET.ER PO PRN (18:52)
[2016-10-15] MEDS ORDERED: hydrOXYzine pamoate 25 MG CAPSULE PO PRN (18:53)
[2016-10-15] MEDS ORDERED: *HR* OxyCODONE Immed Rel 5 MG TABLET PO PRN ×2 (18:53→19:53)
--- NOTE | 2016-10-15 19:44 | Electrocardiograph Report ---
[address] [address] Test Date: 2016-10-14 Pat Name: Piedad Gaming Department: [id number] Room: 2NE29 Gender: F Monotype Caster: : [id number] Requested By: Emmett Carrillo Order Number: [id number] Reading MD: Conor Michelle Measurements Intervals [place] Rate: 123 P: 54 OK: 159 QRS: 45 QRSD: 90 T: 18 QT: 337 QTc: 410 Interpretive Statements SINUS TACHYCARDIA ABNORMAL RHYTHM ECG Electronically Signed On 10-15-2016 19:42:08 EST by Conor Michelle
[2016-10-16] MEDS: *HR* OxyCODONE Immed Rel 15 MG TABLET PO PRN ×3 (00:18→09:09)
[2016-10-16] MEDS ORDERED: Promethazine 12.5 MG in 0.9 % Sodium Chloride 50 ML IVPB PRN ×2 (01:21→13:05)
[2016-10-16] MEDS: Levalbuterol Neb 0.63 MG/3 ML IH SCH ×3 (04:33→10:50)
[2016-10-16] MEDS: *HR* Enoxaparin 40 MG/0.4 ML SYRINGE SQ SCH (05:48)
[2016-10-16] MEDS: Levofloxacin 750 MG/150 ML 750 MG/150 ML BAG IVPB SCH (08:59)
[2016-10-16] MEDS: *HR* LORazepam 1 MG TABLET PO PRN ×2 (09:08→15:22)
[2016-10-16] MEDS: Benzonatate 100 MG CAPSULE PO PRN ×2 (09:08→18:36)
[2016-10-16] MEDS: OWN INSULIN PUMP SQ SCH (09:09)
[2016-10-16 09:15] LABS: Hematocrit 30.4 % (35.3-44.9); Mean Corpuscular HGB Conc 32.9 g/dL (31.6-35.5); Mean Corpuscular Hemoglobin 30.1 pg (28.0-33.3); Mean Corpuscular Volume 91.6 fL (83.0-100.0); Mean Platelet Volume 10.3 fL (9.4-12.4); Nucleated Red Blood Cells 0.2 /100 WBC (0); Platelet Count 154 K/mcL (140-400); Red Blood Count 3.32 M/mcL (3.82-4.97); Red Cell Distribution Width 13.4 % (11.5-14.5)
[2016-10-16 09:27] LABS: BUN/Creatinine Ratio 23 (6-26); Blood Urea Nitrogen 21 mg/dL (7-20); Calcium 8.2 mg/dL (8.6-10.8); Carbon Dioxide 16 mEq/L (19-29); Chloride 107 mEq/L (98-109); Glucose 341 mg/dL (70-99); Osmolality,Calculated 294 (280-300); Potassium 4.1 mEq/L (3.5-4.5); Sodium 134 mEq/L (136-145); eGFR For African Americans > 60 (> 60); eGFR For Non-African Americans > 60 (> 60)
[2016-10-16 09:55] LABS: Eosinophils # 0.2 K/mcL (0.0-0.6); Lymphocytes # 1.2 K/mcL (0.6-4.6); Monocytes # 0.3 K/mcL (0.0-1.3); Platelet Estimate Normal (Normal)
--- NOTE | 2016-10-16 11:23 | Internal Med Progress Note ---
<Bradley Corcoran - Last Filed: 10/16/16 11:18> Date of Encounter: 10/16/16 Time of Encounter: 11:18 - Assessment and plan (1) Sepsis due to pneumonia Current Visit: Yes Status: Acute Assessment and plan: 36-year-old female presented with 4 days onset of productive cough, fever, chills, nausea, vomiting, body aches, fatigue. On admission her white blood cell count is 8.9, she has band neutrophils 38. Creatinine initially was 1.28 which decreased to 0.87. Initial lactic acid was 2.0. Presenting heart rate was 113. And respiratory rate over 20. CT chest showed right upper lobe multifocal pneumonia. Patient was started on levofloxacin for community acquired pneumonia. Influenza screening was negative. Blood cultures preliminary show no growth. Today patient's lung exam continues to show diffuse rhonchi and wheezing. Patient is on 4 L oxygen saturating above 90%. We will continue diabetic diet. Continue pain management with Percocet Repeat chest xray continue levofloxacin (2) UTI (urinary tract infection) Current Visit: Yes Status: Acute Assessment and plan: Patient says suprapubic pain resolved and denied dysuria Urine culture shows growth of E. Coli. Urinalysis shows white blood cell, bacteria and leukocyte esterase. Patient is currently being treated with IV Levaquin. Qualifiers: Urinary tract infection type: acute cystitis Hematuria presence: with hematuria Qualified Code(s): N30.01 - Acute cystitis with hematuria (3) Respiratory failure with hypoxia Current Visit: Yes Status: Acute Assessment and plan: This is secondary to community-acquired pneumonia. Patient requires oxygen supplementation to maintain saturations above 90%. We will also continue bronchodilators. Qualifiers: Chronicity: acute Qualified Code(s): J96.01 - Acute respiratory failure with hypoxia (4) Diabetes mellitus type 1 with complications Current Visit: Yes Status: Chronic Assessment and plan: Patient has history of type 1 diabetes. She has a pain pump. Patient's correction factor is 15. Her basal insulin level is 48 units. Patient is able to monitor her own blood sugar appropriately. We will continue her on her insulin pump. Continue diabetic diet. (5) Gastroparesis due to DM Current Visit: Yes Status: Chronic Assessment and plan: Patient has gastroparesis due to her type 1 diabetes. She is being treated with Phenergan for nausea. (6) Generalized anxiety disorder Current Visit: Yes Status: Chronic Assessment and plan: Patient says she has generalized anxiety disorder and at home was treated with 2 mg Ativan when necessary every 6 hours. I extensively talked to the patient about trying safer medications that are less addictive when she is discharged for her anxiety disorder. Patient understood our conversation. (7) Hypertension Current Visit: No Status: Chronic Assessment and plan: Patient's blood pressure has been controlled at 120/60 since admission. We will continue labetalol . We will restart her lisinopril as patient's history of present illness has resolved. Qualifiers: Hypertension type: essential hypertension Qualified Code(s): I10 - Essential (primary) hypertension - Subjective Interval history: Enrrique's cough has improved today. She continues to be on 4L O2 and saturating at 92%. Patient states she coughed up blood but no one has witnessed it. She was told to show to nurse next time . She has r. chest pain that worsens with cough and deep inspiration. Furthermore, patient became hypoglycemic last night with glucose level of 45. She shut off her pump and requested not to take in supplemental glucose. Her glucose increased to 84. Patient denies suprapubic pain. She is producing urine. Denies dyruia. - Constitutional Vitals: Temp Pulse Resp BP Pulse Ox 98.4 F 96 20 104/67 98 10/16/16 08:24 10/16/16 08:24 10/16/16 08:24 10/16/16 08:24 10/16/16 08:24 General appearance: Present: A&O X 3, pleasant - Respiratory Respiratory exam: Present: decreased breath sounds, rhonchi (b/l diffuse right lung ), wheezes - Cardiovascular Cardiovascular exam: Present: RRR, +S1, +S2. Absent: diastolic murmur, gallop, rubs, systolic murmur - GI/Abdominal GI/Abdominal exam: Present: normal bowel sounds, soft, no peritoneal signs. Absent: distended, tenderness - Extremities Exam Extremities exam: Present: warm, radial pulses palpable and symetrical. Absent : calf tenderness, cyanotic, pedal edema Internal Medicine: Result - Labs CBC & Chem 7: 10/16/16 08:51 10/16/16 08:51 Labs: Short CBC 10/15/16 10/16/16 Range/Units 07:01 08:51 WBC 8.9 8.6 (4.3-11.1) K/mcL Hgb 10.4 L 10.0 L (11.5-15.4) g/dL Hct 30.3 L 30.4 L (35.3-44.9) % Plt Count 120 L 154 (140-400) K/mcL Neutrophils # 7.3 7.0 (1.6-8.9) K/mcL BMP 10/16/16 08:51 Sodium 134 L Potassium 4.1 Chloride 107 Carbon Dioxide 16 L BUN 21 H Creatinine 0.93 Glucose 341 H Calcium 8.2 L Consult Discharge Plan - Plan Referrals: Domingo Humphrey, [Primary Care Provider] - <Sherman Adames - Last Filed: 10/16/16 15:08> Date of Encounter: 10/16/16 - Assessment and plan (1) Respiratory failure with hypoxia Current Visit: Yes Status: Acute Qualifiers: Chronicity: acute Qualified Code(s): J96.01 - Acute respiratory failure with hypoxia (2) Sepsis due to pneumonia Current Visit: Yes Status: Acute (3) UTI (urinary tract infection) Current Visit: Yes Status: Acute Qualifiers: Urinary tract infection type: acute cystitis Hematuria presence: with hematuria Qualified Code(s): N30.01 - Acute cystitis with hematuria (4) Diabetes mellitus type 1 with complications Current Visit: Yes Status: Chronic (5) Gastroparesis due to DM Current Visit: Yes Status: Chronic (6) Generalized anxiety disorder Current Visit: Yes Status: Chronic - Constitutional Vitals: Temp Pulse Resp BP Pulse Ox 98.5 F 85 20 116/75 97 10/16/16 11:31 10/16/16 11:31 10/16/16 11:31 10/16/16 11:31 10/16/16 11:31 Internal Medicine: Result - Labs CBC & Chem 7: 10/16/16 08:51 10/16/16 08:51 Labs: Short CBC 10/16/16 Range/Units 08:51 WBC 8.6 (4.3-11.1) K/mcL Hgb 10.0 L (11.5-15.4) g/dL Hct 30.4 L (35.3-44.9) % Plt Count 154 (140-400) K/mcL Neutrophils # 7.0 (1.6-8.9) K/mcL BMP 10/16/16 08:51 Sodium 134 L Potassium 4.1 Chloride 107 Carbon Dioxide 16 L BUN 21 H Creatinine 0.93 Glucose 341 H Calcium 8.2 L - Attending Attestation I examined this patient and my medical decision-making was reviewed with the Resident Physician on 10/16/16. I agree with the documented findings, disposition and treatment plan as described except to the extent set forth below. Ms. Gaming is currently admitted for acute hypoxic resp failure due to pneumonia. She remains moderate to high risk due to potential for worsening respiratory function. Ms. Gaming is very tearful and complaining about pain. Her oxycodone had been increased last night and she was somnolent this morning. She denies issues and says she has a "high pain med tolerance." She does not feel her pain is being adequately controlled. She also has issues with nausea and uses zofran and phenergan at home. She is coughing but unable to bring up sputum. Exam Alert. Tearful. Heart reg No wheeze noted No edema I/P 1. Acute hypoxic resp failure 2. Acute commun acq pneumonia 3. UTI 4. Anxiety I had a long discussion with the patient regarding pain medications and side effects. At this point I kept the phenergan IV to use with zofran. I've discontinued the PO oxycodone and am giving low dose Dilaudid IV. Recheck CXR. ? d/c next 1-2 days.
[2016-10-16] MEDS ORDERED: *HR* OxyCODONE Immed Rel 5 MG TABLET PO PRN (12:36)
[2016-10-16] MEDS: Insulin LISPRO 300 UNITS/3 ML VIAL SQ SCH ×4 (13:51→23:07)
[2016-10-16] MEDS ORDERED: hydrOXYzine pamoate 25 MG CAPSULE PO PRN (14:01)
[2016-10-16] MEDS: *HR* HYDROmorphone (PF) 1 MG/ML SYRINGE IVP PRN ×2 (14:37→20:44)
[2016-10-16] MEDS: Albuterol 2.5 MG/3 ML NEBULIZER IH SCH ×2 (16:32→23:04)
[2016-10-16] MEDS ORDERED: GuaiFENesin/Codeine Oral Soln 5 ML UDC PO PRN (18:34)
[2016-10-16] MEDS: Acetaminophen 325 MG TABLET PO PRN (20:48)
[2016-10-16] MEDS: Acetylcysteine 10% 2 ML INHSOL IH SCH (23:04)
[2016-10-16] MEDS: Promethazine 12.5 MG in 0.9 % Sodium Chloride 50 ML IVPB PRN (23:12)
[2016-10-17] MEDS: *HR* HYDROmorphone (PF) 1 MG/ML SYRINGE IVP PRN ×5 (00:57→21:51)
[2016-10-17] MEDS: Albuterol 2.5 MG/3 ML NEBULIZER IH SCH ×5 (04:30→22:22)
[2016-10-17] MEDS: Acetylcysteine 10% 2 ML INHSOL IH SCH ×5 (04:30→22:22)
[2016-10-17] MEDS: Benzonatate 100 MG CAPSULE PO PRN (04:58)
[2016-10-17] MEDS: *HR* LORazepam 1 MG TABLET PO PRN ×2 (04:59→20:49)
[2016-10-17] MEDS: *HR* Enoxaparin 40 MG/0.4 ML SYRINGE SQ SCH (05:50)
[2016-10-17 06:11] LABS: BUN/Creatinine Ratio 20 (6-26); Blood Urea Nitrogen 16 mg/dL (7-20); Calcium 8.6 mg/dL (8.6-10.8); Carbon Dioxide 14 mEq/L (19-29); Chloride 113 mEq/L (98-109); Glucose 77 mg/dL (70-99); Osmolality,Calculated 288 (280-300); Potassium 3.9 mEq/L (3.5-4.5); Sodium 139 mEq/L (136-145); eGFR For African Americans > 60 (> 60); eGFR For Non-African Americans > 60 (> 60)
[2016-10-17 06:20] LABS: Basophils # 0.1 K/mcL (0.0-0.2); Basophils % 0.7 %; Eosinophils # 0.2 K/mcL (0.0-0.6); Eosinophils % 3.3 %; Hematocrit 28.8 % (35.3-44.9); Hemoglobin 10.1 g/dL (11.5-15.4); Immature Granulocytes % 2.6 % (0-4); Immature Platelets 4.7 % (1.1-6.1); Lymphocytes # 1.9 K/mcL (0.6-4.6); Lymphocytes % 25.7 %; Mean Corpuscular HGB Conc 35.1 g/dL (31.6-35.5); Mean Corpuscular Hemoglobin 30.4 pg (28.0-33.3); Mean Corpuscular Volume 86.7 fL (83.0-100.0); Monocytes # 0.5 K/mcL (0.0-1.3); Monocytes % 6.4 %; Neutrophils # 4.5 K/mcL (1.6-8.9); Platelet Count 165 K/mcL (140-400); Red Blood Count 3.32 M/mcL (3.82-4.97); Red Cell Distribution Width 13.2 % (11.5-14.5); Segmented Neutrophils % 61.3 %
[2016-10-17 06:22] LABS: Platelet Estimate Normal (Normal)
[2016-10-17 06:24] LABS: Hypochromasia Present (Not Present)
[2016-10-17] MEDS: Promethazine 12.5 MG in 0.9 % Sodium Chloride 50 ML IVPB PRN ×2 (06:32→14:14)
[2016-10-17] MEDS: Insulin LISPRO 300 UNITS/3 ML VIAL SQ SCH ×4 (09:10→19:38)
[2016-10-17] MEDS: Levofloxacin 750 MG/150 ML 750 MG/150 ML BAG IVPB SCH (09:16)
[2016-10-17] MEDS: OWN INSULIN PUMP SQ SCH (09:18)
--- NOTE | 2016-10-17 18:46 | Internal Med Progress Note ---
Date of Encounter: 10/17/16 Time of Encounter: 15:00 - Assessment and plan (1) Respiratory failure with hypoxia Current Visit: Yes Status: Acute Assessment and plan: Due to community acquired pneumonia. Has been able to be off her oxygen some today. Continue supplement as needed. Qualifiers: Chronicity: acute Qualified Code(s): J96.01 - Acute respiratory failure with hypoxia (2) Sepsis due to pneumonia Current Visit: Yes Status: Acute Assessment and plan: CXR continues to show multifocal changes. Currently on Levaquin. If symptoms do not continue to improve will consider abx change. (3) UTI (urinary tract infection) Current Visit: Yes Status: Acute Assessment and plan: Improving. Due to E. coli on culture. Qualifiers: Urinary tract infection type: acute cystitis Hematuria presence: with hematuria Qualified Code(s): N30.01 - Acute cystitis with hematuria (4) Diabetes mellitus type 1 with complications Current Visit: Yes Status: Chronic Assessment and plan: She has had episodes of hypoglycemia today. She is monitoring her own insulin pump and adjusting as needed. (5) Gastroparesis due to DM Current Visit: Yes Status: Chronic Assessment and plan: Patient has gastroparesis due to her type 1 diabetes. She is being treated with Phenergan and Zofran for nausea. (6) Generalized anxiety disorder Current Visit: Yes Status: Chronic Assessment and plan: Continuing home dose of Ativan. (7) Chest pain Current Visit: Yes Status: Acute Assessment and plan: From pneumonia. PRN pain meds. Qualifiers: Chest pain type: intercostal pain Qualified Code(s): R07.82 - Intercostal pain - Subjective Interval history: Ms. Gaming is currently admitted for acute multifocal pneumonia. She remains high risk due to potential of worsening respiratory status and infection. Ms. Gaming continues to have pain issues. She is coughing a lot and unable to mobilize sputum. Pain is in R chest mostly. Some nausea still persists. No diarrhea. - Constitutional Vitals: Temp Pulse Resp BP Pulse Ox 101.5 F H 89 15 147/84 96 10/17/16 16:41 10/17/16 16:41 10/17/16 16:41 10/17/16 16:41 10/17/16 16:41 General appearance: Present: A&O X 3, answers questions appropriately - Head Head exam: Present: normocephalic - Eye Eye exam: Present: conjuntiva pink - ENT ENT exam: Present: mucous membranes moist - Respiratory Respiratory exam: Present: rales Additional comments: Decreased breath sounds on R with crackles in R base. - Cardiovascular Cardiovascular exam: Present: RRR. Absent: systolic murmur, tachycardia - GI/Abdominal GI/Abdominal exam: Present: soft. Absent: tenderness - Extremities Exam Extremities exam: Present: warm. Absent: pedal edema, tenderness - Neurological Exam Neurological exam: Present: alert, oriented X3, no focal deficits - Skin Skin exam: Present: dry, warm. Absent: rash Internal Medicine: Result - Labs CBC & Chem 7: 10/17/16 05:46 10/17/16 05:46 Labs: Short CBC 10/17/16 Range/Units 05:46 WBC 7.4 (4.3-11.1) K/mcL Hgb 10.1 L (11.5-15.4) g/dL Hct 28.8 L (35.3-44.9) % Plt Count 165 (140-400) K/mcL Neutrophils # 4.5 (1.6-8.9) K/mcL BMP 10/17/16 05:46 Sodium 139 Potassium 3.9 Chloride 113 H Carbon Dioxide 14 L BUN 16 Creatinine 0.82 Glucose 77 Calcium 8.6 - Impressions Impressions Chest X-Ray 10/16/16 09:34 IMPRESSION: Stable appearance of an extensive multifocal pneumonia most pronounced within the right upper and right lower lobes. Follow-up imaging is recommended after treatment to ensure resolution. D/ / Ashu Mcnally MD / Ashu Mcnally MD Interpreting Provider: Ashu Mcnally MD Consult Discharge Plan - Plan Referrals: Domingo Humphrey DO [Primary Care Provider] -
[2016-10-18] MEDS: *HR* HYDROmorphone (PF) 1 MG/ML SYRINGE IVP PRN ×5 (02:13→20:53)
[2016-10-18 04:01] LABS: Basophils % 0.5 %; Eosinophils # 0.1 K/mcL (0.0-0.6); Hematocrit 29.7 % (35.3-44.9); Hemoglobin 10.2 g/dL (11.5-15.4); Immature Granulocytes % 3.7 % (0-4); Lymphocytes # 1.4 K/mcL (0.6-4.6); Lymphocytes % 24.2 %; Mean Corpuscular HGB Conc 34.3 g/dL (31.6-35.5); Mean Corpuscular Hemoglobin 30.5 pg (28.0-33.3); Mean Corpuscular Volume 88.9 fL (83.0-100.0); Mean Platelet Volume 9.9 fL (9.4-12.4); Monocytes # 0.6 K/mcL (0.0-1.3); Monocytes % 10.2 %; Neutrophils # 3.5 K/mcL (1.6-8.9); Platelet Count 190 K/mcL (140-400); Red Blood Count 3.34 M/mcL (3.82-4.97); Red Cell Distribution Width 13.3 % (11.5-14.5); Segmented Neutrophils % 59.4 %
[2016-10-18 04:18] LABS: BUN/Creatinine Ratio 8 (6-26); Blood Urea Nitrogen 6 mg/dL (7-20); Calcium 8.2 mg/dL (8.6-10.8); Carbon Dioxide 20 mEq/L (19-29); Chloride 106 mEq/L (98-109); Glucose 70 mg/dL (70-99); Osmolality,Calculated 278 (280-300); Sodium 136 mEq/L (136-145); eGFR For African Americans > 60 (> 60); eGFR For Non-African Americans > 60 (> 60)
[2016-10-18 04:22] LABS: Potassium 2.8 mEq/L (3.5-4.5)
[2016-10-18] MEDS: Acetylcysteine 10% 2 ML INHSOL IH SCH ×4 (04:33→22:35)
[2016-10-18] MEDS: Albuterol 2.5 MG/3 ML NEBULIZER IH SCH ×4 (04:33→22:35)
[2016-10-18] MEDS: *HR* Enoxaparin 40 MG/0.4 ML SYRINGE SQ SCH (05:33)
[2016-10-18] MEDS: Insulin LISPRO 300 UNITS/3 ML VIAL SQ SCH ×4 (07:58→20:47)
[2016-10-18] MEDS: OWN INSULIN PUMP SQ SCH (07:59)
[2016-10-18] MEDS ORDERED: Potassium Chloride 40 MEQ, Lidocaine 1% 2 ML in D5% in Water 500 ML IVPB ONE (08:16)
[2016-10-18] MEDS: Azithromycin 500 MG in D5% in Water 250 ML IVPB SCH (10:23)
--- NOTE | 2016-10-18 15:34 | Internal Med Progress Note ---
Date of Encounter: 10/18/16 Time of Encounter: 10:30 - Assessment and plan (1) Hypokalemia Current Visit: Yes Status: Acute Assessment and plan: Replete and recheck tomorrow. (2) Respiratory failure with hypoxia Current Visit: Yes Status: Acute Assessment and plan: Hypoxemia persists when moving around. Continuing to wean oxygen as able. Qualifiers: Chronicity: acute Qualified Code(s): J96.01 - Acute respiratory failure with hypoxia (3) Sepsis due to pneumonia Current Visit: Yes Status: Acute Assessment and plan: Multifocal pneumonia on CXR. Still with cough and has had low grade fever overnight. Will change to Ceftriaxone/azithromycin today. May need further evaluation if does not continue to improve. (4) UTI (urinary tract infection) Current Visit: Yes Status: Acute Assessment and plan: Improving. Culture shows E. coli. Will d/c pyridium tomorrow. Qualifiers: Urinary tract infection type: acute cystitis Hematuria presence: with hematuria Qualified Code(s): N30.01 - Acute cystitis with hematuria (5) Diabetes mellitus type 1 with complications Current Visit: Yes Status: Chronic Assessment and plan: Continues to have some episodes of hypoglycemia. Continuing to monitor. (6) Gastroparesis due to DM Current Visit: Yes Status: Chronic Assessment and plan: Patient has gastroparesis due to her type 1 diabetes. She is being treated with Phenergan and Zofran for nausea. (7) Generalized anxiety disorder Current Visit: Yes Status: Chronic Assessment and plan: Continuing home dose of Ativan. (8) Chest pain Current Visit: Yes Status: Acute Assessment and plan: From pneumonia. PRN pain meds. Qualifiers: Chest pain type: intercostal pain Qualified Code(s): R07.82 - Intercostal pain - Subjective Interval history: Ms. Gaming is currently admitted for acute multifocal pneumonia. She remains high risk due to potential of worsening respiratory status and infection. Ms. Gaming continues to cough and has had a low grade temp. BS still low at times. Pain still an issue. No GI symptoms. Dysuria has improved. Has been up to the bathroom on occasion. - Constitutional Vitals: Temp Pulse Resp BP Pulse Ox 99.3 F 75 16 127/76 95 10/18/16 10:55 10/18/16 10:55 10/18/16 10:55 10/18/16 10:55 10/18/16 10:55 General appearance: Present: A&O X 3, answers questions appropriately - Head Head exam: Present: normocephalic - Eye Eye exam: Present: conjuntiva pink - ENT ENT exam: Present: mucous membranes moist - Respiratory Respiratory exam: Present: rhonchi, wheezes Additional comments: Wheeze heard RUL area with crackles in R base. - Cardiovascular Cardiovascular exam: Present: RRR. Absent: systolic murmur, tachycardia - GI/Abdominal GI/Abdominal exam: Present: soft. Absent: tenderness - Extremities Exam Extremities exam: Present: warm. Absent: pedal edema, tenderness - Neurological Exam Neurological exam: Present: alert, oriented X3, no focal deficits - Skin Skin exam: Present: warm. Absent: rash Internal Medicine: Result - Labs CBC & Chem 7: 10/18/16 03:45 10/18/16 03:45 Labs: Short CBC 10/18/16 Range/Units 03:45 WBC 5.9 (4.3-11.1) K/mcL Hgb 10.2 L (11.5-15.4) g/dL Hct 29.7 L (35.3-44.9) % Plt Count 190 (140-400) K/mcL Neutrophils # 3.5 (1.6-8.9) K/mcL BMP 10/18/16 03:45 Sodium 136 Potassium 2.8 L D Chloride 106 Carbon Dioxide 20 BUN 6 L D Creatinine 0.72 Glucose 70 Calcium 8.2 L Consult Discharge Plan - Plan Referrals: Domingo Humphrey DO [Primary Care Provider] -
[2016-10-19] MEDS: *HR* HYDROmorphone (PF) 1 MG/ML SYRINGE IVP PRN ×6 (00:53→23:08)
[2016-10-19] MEDS: Acetylcysteine 10% 2 ML INHSOL IH SCH ×3 (04:00→15:55)
[2016-10-19] MEDS: Albuterol 2.5 MG/3 ML NEBULIZER IH SCH ×4 (04:00→21:01)
[2016-10-19] MEDS: *HR* Enoxaparin 40 MG/0.4 ML SYRINGE SQ SCH (04:57)
[2016-10-19 05:06] LABS: Alanine Aminotransferase 11 Units/L (0-55); Albumin 2.1 g/dL (3.5-5.0); Albumin/Globulin Ratio 0.5 (1.1-2.2); Alkaline Phosphatase 281 Units/L (38-126); Aspartate Amino Transferase 16 Units/L (5-34); BUN/Creatinine Ratio 7 (6-26); Bilirubin,Total 0.9 mg/dL (0.2-1.2); Blood Urea Nitrogen 5 mg/dL (7-20); Calcium 8.3 mg/dL (8.6-10.8); Carbon Dioxide 22 mEq/L (19-29); Chloride 104 mEq/L (98-109); Globulin 4.1 g/dL (2.4-3.5); Glucose 115 mg/dL (70-99); Magnesium 1.1 mg/dL (1.6-2.6); Osmolality,Calculated 280 (280-300); Potassium 2.8 mEq/L (3.5-4.5); Sodium 136 mEq/L (136-145); Total Protein 6.2 g/dL (6.0-8.3); eGFR For African Americans > 60 (> 60); eGFR For Non-African Americans > 60 (> 60)
[2016-10-19] MEDS ORDERED: Magnesium Sulfate 2 GM in D5% in Water 100 ML IVPB ONE (06:51)
[2016-10-19] MEDS ORDERED: Potassium Chloride Elixir 20 MEQ/15 ML UDC PO ONE (06:51)
[2016-10-19] MEDS: Acetaminophen 325 MG TABLET PO PRN ×2 (08:03→23:08)
[2016-10-19] MEDS: Insulin LISPRO 300 UNITS/3 ML VIAL SQ SCH ×4 (08:19→20:54)
[2016-10-19] MEDS: OWN INSULIN PUMP SQ SCH (08:19)
[2016-10-19] MEDS: *HR* LORazepam 1 MG TABLET PO PRN ×2 (10:19→15:56)
--- NOTE | 2016-10-19 10:32 | Internal Med Progress Note ---
<Bradley Corcoran - Last Filed: 10/19/16 15:30> Date of Encounter: 10/19/16 Time of Encounter: 10:30 - Assessment and plan (1) Sepsis due to pneumonia Current Visit: Yes Status: Acute Assessment and plan: Multifocal pneumonia on CT Chest. Repeat CT Chest shows no change except for developing pleural effusion. Patients clinically improving. Lung exam shows increase in air movement, decreased ronchi, and improved wheezing. There is also new development of rales on right basilar. We will continue Ceftriaxone/ azithromycin today. We will also start patient on lasix for next couple of days for diuresis. Pulmonology was consulted for further evaluation. They recommended bronchoscopy is most likely not necessary at this point. Patient has severe community-acquired pneumonia and has already shown improvement as she does not require oxygen. (2) UTI (urinary tract infection) Current Visit: Yes Status: Acute Assessment and plan: Improving. Culture shows E. coli. Patient denies any dysuria. She is being treated with ceftriaxone. Qualifiers: Urinary tract infection type: acute cystitis Hematuria presence: with hematuria Qualified Code(s): N30.01 - Acute cystitis with hematuria (3) Respiratory failure with hypoxia Current Visit: Yes Status: Resolved Assessment and plan: Secondary to community acquired pneumonia. Patient has been weaned off oxygen. Her lung exam is improved as noted above. We will continue her antibiotics as noted above. Qualifiers: Chronicity: acute Qualified Code(s): J96.01 - Acute respiratory failure with hypoxia (4) Diabetes mellitus type 1 with complications Current Visit: Yes Status: Chronic Assessment and plan: Patient has type 1 diabetes. She has her home glucose monitor. Continue Accu- Cheks. She did not have any hypoglycemic events in the last 24. Continue diabetic diet. (5) Gastroparesis due to DM Current Visit: Yes Status: Chronic Assessment and plan: Patient has gastroparesis due to her type 1 diabetes. She is being treated with Phenergan. (6) Generalized anxiety disorder Current Visit: Yes Status: Chronic Assessment and plan: Continuing home dose of Ativan. (7) Hypertension Current Visit: No Status: Chronic Assessment and plan: Patient's blood pressure has been controlled at 120/60 since admission. We will continue labetalol . We will restart her lisinopril. Qualifiers: Hypertension type: essential hypertension Qualified Code(s): I10 - Essential (primary) hypertension - Subjective Interval history: 30 for a female admitted for multifocal pneumonia. Patient has been coughing less compared to yesterday. She states that her breathing has improved since admission. She denies chest pain, abdominal pain, fevers, chills, nausea, vomiting. - Constitutional Vitals: Temp Pulse Resp BP Pulse Ox 97.9 F 87 14 118/62 94 L 10/19/16 07:55 10/19/16 07:55 10/19/16 07:55 10/19/16 07:55 10/19/16 07:55 General appearance: Present: A&O X 3, answers questions appropriately - Head Head exam: Present: atraumatic, normocephalic - Eye Eye exam: Present: PERRL, conjuntiva pink, sclera anicteric - Neck Neck exam general surgery: Present: supple, trachea midline. Absent: lymphadenopathy - Respiratory Respiratory exam: Present: decreased breath sounds, rales (right basilar), wheezes (bilateral upper lobes.). Absent: accessory muscle use, rhonchi - Cardiovascular Cardiovascular exam: Present: RRR, +S1, +S2. Absent: diastolic murmur, gallop, rubs, systolic murmur - GI/Abdominal GI/Abdominal exam: Present: normal bowel sounds, soft, no peritoneal signs. Absent: distended, tenderness - Extremities Exam Extremities exam: Present: warm, radial pulses palpable and symetrical. Absent : calf tenderness, cyanotic, pedal edema - Neurological Exam Neurological exam: Present: CN II-XII intact, oriented X3, no focal deficits. Absent: pronater drift, facial droop, speech deficit - Skin Skin exam: Present: dry, intact Internal Medicine: Result - Labs CBC & Chem 7: 10/18/16 03:45 10/19/16 04:17 Labs: BMP 10/19/16 04:17 Sodium 136 Potassium 2.8 L Chloride 104 Carbon Dioxide 22 BUN 5 L Creatinine 0.69 Glucose 115 H Calcium 8.3 L Liver Function 10/19/16 Range/Units 04:17 Total Bilirubin 0.9 (0.2-1.2) mg/dL AST 16 (5-34) Units/L ALT 11 (0-55) Units/L Alkaline Phosphatase 281 H (38-126) Units/L Albumin 2.1 L (3.5-5.0) g/dL Consult Discharge Plan - Plan Referrals: Domingo Humphrey, [Primary Care Provider] - <Sherman Adames - Last Filed: 10/19/16 18:22> Date of Encounter: 10/19/16 - Assessment and plan (1) Hypomagnesemia Current Visit: Yes Status: Acute Assessment and plan: Replace (2) Hypokalemia Current Visit: Yes Status: Acute (3) Respiratory failure with hypoxia Current Visit: Yes Status: Resolved Qualifiers: Chronicity: acute Qualified Code(s): J96.01 - Acute respiratory failure with hypoxia (4) Sepsis due to pneumonia Current Visit: Yes Status: Acute (5) UTI (urinary tract infection) Current Visit: Yes Status: Acute Qualifiers: Urinary tract infection type: acute cystitis Hematuria presence: with hematuria Qualified Code(s): N30.01 - Acute cystitis with hematuria (6) Diabetes mellitus type 1 with complications Current Visit: Yes Status: Chronic (7) Gastroparesis due to DM Current Visit: Yes Status: Chronic (8) Generalized anxiety disorder Current Visit: Yes Status: Chronic (9) Chest pain Current Visit: Yes Status: Acute Qualifiers: Chest pain type: intercostal pain Qualified Code(s): R07.82 - Intercostal pain - Constitutional Vitals: Temp Pulse Resp BP Pulse Ox 97.5 F L 75 16 124/73 95 10/19/16 15:48 10/19/16 15:48 10/19/16 15:48 10/19/16 15:48 10/19/16 15:48 Internal Medicine: Result - Labs CBC & Chem 7: 10/18/16 03:45 10/19/16 04:17 Labs: BMP 10/19/16 04:17 Sodium 136 Potassium 2.8 L Chloride 104 Carbon Dioxide 22 BUN 5 L Creatinine 0.69 Glucose 115 H Calcium 8.3 L Liver Function 10/19/16 Range/Units 04:17 Total Bilirubin 0.9 (0.2-1.2) mg/dL AST 16 (5-34) Units/L ALT 11 (0-55) Units/L Alkaline Phosphatase 281 H (38-126) Units/L Albumin 2.1 L (3.5-5.0) g/dL - Impressions Impressions Chest CT 10/19/16 10:30 IMPRESSION: New small bilateral pleural effusions. Multifocal bilateral airspace disease in all lobes is again seen, in keeping with patient's history of pneumonia. While aeration has improved slightly at the right apex, airspace disease has increased within the left upper lobe and right middle lobe. Mild lissy prominence is likely reactive. Follow-up to resolution recommended. D/ / Shadi Lund MD / Shadi Lund MD Interpreting Provider: Shadi Lund MD - Attending Attestation I examined this patient and my medical decision-making was reviewed with the Resident Physician on 10/19/16. I agree with the documented findings, disposition and treatment plan as described except to the extent set forth below. Ms. Gaming is currently admitted for community acquired pneumonia and hypoxia. She remains moderate to high risk due to potential for respiratory worsening. Ms. Gaming is continuing to slowly improve clinically. She has no fever. Still with cough - nonproductive. Still with pain. Nausea about the same. Exam Alert. Comfortable Heart reg Lungs with wheeze I/P 1. Hypoxia 2. CAP 3. DM Further diagnoses and plan as above Consult pulm for further guidance regarding plan of care.
[2016-10-19] MEDS ORDERED: Furosemide 40 MG TABLET PO ONE (14:04)
--- NOTE | 2016-10-19 14:45 | Pulmonology Consult Note ---
Date of Encounter: 10/19/16 Time of Encounter: 14:42 Assessment and Plan (1) Abnormal chest CT Current Visit: Yes Status: Acute The abnormal chest CT findings are more likely due to severe community-acquired pneumonia. The patient has no significant immunocompromising medical conditions (other than type 1 diabetes mellitus) and thus is unlikely to have an opportunistic infection per se as the etiology of clinical presentation. At this time, I would continue current medical measures since the patient does not appear toxic and is seemingly improved since admission. Given the presence of bilateral pleural effusions which are small and disparity of input relative output, I think Lasix should be administered for the next day or 2. The patient will be re-evaluated serially. If her clinical status suggest lack of improvement then perhaps bronchoscopy can be performed however I think this would be of low yield based upon the patient's history and current antibiotic exposures. I reviewed my impressions with the primary service and also reviewed management and impressions with the patient. Code(s): R93.8 - Abnormal findings on diagnostic imaging of other specified body structures SNOMED Code(s): 536397493 History of Present Illness Consult date: 10/19/16 Chief complaint: Abnormal chest CT scan History of present illness: This is a 36-year-old female with well established type 1 diabetes among other health issues who was admitted to the hospital with complaints of fever and chills cough (she claims expectoration of bloody secretions, not verified) nausea and vomiting. He should also noted headache and generalized muscle aches. She claims that family members were not similarly afflicted by these symptoms. Given the nature of her illness, she sought emergency room evaluation and was thought to have severe community-acquired pneumonia based on her history as well as imaging and was subsequently admitted to the hospital for treatment of the same. Since her hospital stay, patient has noted an improvement of her overall sense of well-being and respiratory symptoms. She does continue to note cough and right-sided chest discomfort with deep breathing. Her other systemics or complaints have resolved. Given persistent infiltrates noted from repeat chest imaging, pulmonary consultation requested for further evaluation. The patient is an active smoker of approximately [id number] intensity. She does not recall a history of chronic lung disorders other than reported "asthma " necessitating periodic treatment with beta agonists particularly with seasonal change (she notes cough chest congestion and wheeze with change in weather and humidity). She has no family history of pulmonary disorders and she has no personal history of malignancies. Past Med Surg Social Fam HX - Past Medical History Medical history: asthma, diabetes, GERD, hypertension Psychiatric history: anxiety, depression, panic disorder - Past Surgical History Surgical History: appendectomy, cholecystectomy, hysterectomy, other (lTKE, humeral nailing, T&A, hysterectomy , carpal tunnel BL.) - Social History Smoking Status: Former smoker Smokeless Tobacco Status: No Alcohol use: none Drug use: none - Family History Mother Living Status: Still Living Hx Family Cardiac Disorders: Yes (HTN) Father Living Status: Still Living Hx Family Cardiac Disorders: Yes (HTN) Hx Family Respiratory Disorders: Yes Medications and Allergies Insulin ASPART [NovoLOG] 0 unit .ROUTE AD 04/17/15 [History] Labetalol [Trandate] 100 mg PO BID 04/17/15 [History] Lisinopril [Zestril] 10 mg PO DAILY 04/17/15 [History] Albuterol Sulfate [Albuterol Inhaler] 1 - 2 puff IH Q4HR PRN 06/19/15 [History] Gabapentin [Neurontin] 800 mg PO TID 06/19/15 [History] LORazepam [Ativan] 2 mg PO TID 06/19/15 [History] Orphenadrine [Norflex] 100 mg PO BID #14 tablet.er 12/08/15 [Rx] Estradiol 2 mg PO DAILY 08/03/16 [History] Ondansetron ODT [Zofran ODT] 4 mg SL Q6HR PRN #8 tab.rapdis 08/17/16 [Rx] Esomeprazole Magnesium [Nexium] 40 mg PO BID 08/23/16 [History] Melatonin/Pyridoxine HCl (B6) [Melatonin 5 mg Tablet] 10 mg PO HS PRN 10/14/16 [ History] Allergies Cortisone Allergy (Verified 08/24/16 12:01) Anaphylaxis ketorolac [From Toradol] Allergy (Verified 10/14/16 13:13) Anaphylaxis latex Allergy (Verified 08/24/16 12:01) Hives metoclopramide [From Reglan] Allergy (Verified 08/24/16 12:01) Anaphylaxis morphine Allergy (Verified 08/24/16 12:01) Anaphylaxis tramadol [From Ultram] Adverse Reaction (Verified 08/24/16 12:01) Nausea Zolpidem [From Ambien] Adverse Reaction (Verified 08/24/16 12:01) Insomnia All Systems: A 10-system review of systems was performed and is negative for pertinent findings except as documented above in the HPI. - Constitutional Constitutional: as per HPI - Cardiovascular Cardiovascular: as per HPI - Respiratory Respiratory: as per HPI Physical Examination Vital Signs: Vital Signs, Last 4 Hours Temp Pulse Resp BP Pulse Ox 10/19/16 11:34 98.0 F 75 14 129/77 95 General appearance: no acute distress, other (The patient appears chronically ill and older than her stated age) Eyes: nonicteric ENT: oropharynx moist Auscultation: right: wheezes, rales (Rales noted over the left midlung zone as well) Cardiovascular: regular rate and rhythm Gastrointestinal: normoactive bowel sounds, non-distended Integumentary: normal Extremities: no cyanosis Musculoskeletal: no deformities Gait: normal posture normal mental status, non-focal exam mood appropriate Results - Laboratory Findings CBC and BMP: 10/18/16 03:45 10/19/16 04:17 Abnormal lab findings: Abnormal lab results RBC 3.34 M/mcL (3.82-4.97) L 10/18/16 03:45 Hgb 10.2 g/dL (11.5-15.4) L 10/18/16 03:45 Hct 29.7 % (35.3-44.9) L 10/18/16 03:45 Band Neutrophils % 8.0 % (0-4) H 10/16/16 08:51 Metamyelocytes % 3.0 % (0) H 10/15/16 07:01 Nucleated RBCs/100 WBC 0.2 /100 WBC (0) H 10/16/16 08:51 Toxic Granulation Present (Not Present) A 10/15/16 07:01 Toxic Vacuolation Present (Not Present) A 10/15/16 07:01 Dohle Bodies Present (Not Present) A 10/15/16 07:01 Hypochromasia Present (Not Present) A 10/17/16 05:46 Potassium 2.8 mEq/L (3.5-4.5) L 10/19/16 04:17 BUN 5 mg/dL (7-20) L 10/19/16 04:17 Glucose 115 mg/dL (70-99) H 10/19/16 04:17 POC Glucose 137 (58-89) H 10/18/16 20:01 Calcium 8.3 mg/dL (8.6-10.8) L 10/19/16 04:17 Magnesium 1.1 mg/dL (1.6-2.6) L 10/19/16 04:17 Alkaline Phosphatase 281 Units/L (38-126) H 10/19/16 04:17 Albumin 2.1 g/dL (3.5-5.0) L 10/19/16 04:17 Globulin 4.1 g/dL (2.4-3.5) H 10/19/16 04:17 Albumin/Globulin Ratio 0.5 (1.1-2.2) L 10/19/16 04:17 Urine Clarity Cloudy (Clear) A 10/14/16 10:26 Urine Protein 30 mg/dL (Neg-Trace) H 10/14/16 10:26 Urine Glucose (UA) 100 mg/dL (Normal) H 10/14/16 10:26 Urine Blood Trace (Negative) H 10/14/16 10:26 Urine Nitrite Positive (Negative) A 10/14/16 10:26 Urine Bilirubin Moderate (Negative) H 10/14/16 10:26 Urine Urobilinogen 2.0 mg/dL (Normal) H 10/14/16 10:26 Ur Leukocyte Esterase Large (Negative) H 10/14/16 10:26 Urine Microscopic RBC 5-15 per hpf (0-3) H 10/14/16 10:26 Urine Microscopic WBC TNTC per hpf (0-3) H 10/14/16 10:26 Ur Squamous Epith Cells Many per lpf (None-Few) H 10/14/16 10:26 Urine Bacteria Many per hpf (None-Few) H 10/14/16 10:26 Ur Culture Indicated? YES (NO) A 10/14/16 10:26 Urine Opiates Screen Positive ng/mL (Wqsfbg=407) H 10/14/16 10:22 U Marijuana (THC) Screen Positive ng/mL (Cutoff = 50) H 10/14/16 10:22 - Diagnostic Findings Chest x-ray: image reviewed CT scan - chest: image reviewed - Clinical Findings Intake & Output: Intake & Output 10/18/16 10/19/16 10/19/16 23:59 07:59 15:59 Intake Total 882 / 882 0 / 0 100 / 100 Output Total 0 / 0 Balance 882 / 882 0 / 0 100 / 100 Weight 88.6 kg Consult Discharge Plan - Plan Referrals: Domingo Humphrey DO [Primary Care Provider] -
[2016-10-19] MEDS: Promethazine 12.5 MG in 0.9 % Sodium Chloride 50 ML IVPB PRN (16:46)
[2016-10-19] MEDS: Azithromycin 500 MG in D5% in Water 250 ML IVPB SCH (19:06)
[2016-10-20] MEDS: Albuterol 2.5 MG/3 ML NEBULIZER IH SCH ×4 (04:05→21:56)
[2016-10-20] MEDS: *HR* HYDROmorphone (PF) 1 MG/ML SYRINGE IVP PRN ×5 (04:28→22:55)
[2016-10-20 05:18] LABS: Hematocrit 32.4 % (35.3-44.9); Hemoglobin 11.1 g/dL (11.5-15.4); Mean Corpuscular HGB Conc 34.3 g/dL (31.6-35.5); Mean Corpuscular Hemoglobin 30.6 pg (28.0-33.3); Mean Corpuscular Volume 89.3 fL (83.0-100.0); Mean Platelet Volume 9.7 fL (9.4-12.4); Platelet Count 313 K/mcL (140-400); Red Blood Count 3.63 M/mcL (3.82-4.97); Red Cell Distribution Width 13.2 % (11.5-14.5)
[2016-10-20] MEDS: *HR* Enoxaparin 40 MG/0.4 ML SYRINGE SQ SCH (05:32)
[2016-10-20 05:36] LABS: BUN/Creatinine Ratio 9 (6-26); Blood Urea Nitrogen 6 mg/dL (7-20); Calcium 8.5 mg/dL (8.6-10.8); Carbon Dioxide 21 mEq/L (19-29); Chloride 106 mEq/L (98-109); Glucose 43 mg/dL (70-99); Osmolality,Calculated 281 (280-300); Potassium 3.2 mEq/L (3.5-4.5); Sodium 138 mEq/L (136-145); eGFR For African Americans > 60 (> 60); eGFR For Non-African Americans > 60 (> 60)
[2016-10-20 05:57] LABS: Eosinophils # 0.2 K/mcL (0.0-0.6); Neutrophils # 4.4 K/mcL (1.6-8.9); Platelet Estimate Normal (Normal); Reactive Lymphocytes Present (Not Present)
[2016-10-20] MEDS ORDERED: Potassium Chloride Elixir 20 MEQ/15 ML UDC PO ONE (07:00)
[2016-10-20] MEDS: Insulin LISPRO 300 UNITS/3 ML VIAL SQ SCH ×2 (07:49→11:49)
[2016-10-20] MEDS: Magnesium Oxide 400 MG TABLET PO SCH ×2 (08:56→20:14)
[2016-10-20] MEDS: Furosemide 20 MG TABLET PO SCH (08:57)
[2016-10-20] MEDS: OWN INSULIN PUMP SQ SCH (08:59)
--- NOTE | 2016-10-20 11:31 | Internal Med Progress Note ---
<Bradley Corcoran - Last Filed: 10/20/16 11:28> Date of Encounter: 10/20/16 Time of Encounter: 11:28 - Assessment and plan (1) Sepsis due to pneumonia Current Visit: Yes Status: Acute Assessment and plan: Multifocal pneumonia on CT Chest. Repeat CT Chest shows no change except for developing pleural effusion. Patients clinically improving. Lung exam shows increase in air movement, decreased ronchi, and improved wheezing. Lung exam improved from yesterday. After starting patient on Lasix her rails have improved. We will continue Ceftriaxone/azithromycin today. Likely discharge tomorrow (2) UTI (urinary tract infection) Current Visit: Yes Status: Resolved Assessment and plan: Improving. Culture shows E. coli. Patient denies any dysuria. She is being treated with ceftriaxone. Qualifiers: Urinary tract infection type: acute cystitis Hematuria presence: with hematuria Qualified Code(s): N30.01 - Acute cystitis with hematuria (3) Respiratory failure with hypoxia Current Visit: Yes Status: Resolved Assessment and plan: Secondary to community acquired pneumonia. Patient has been weaned off oxygen. Her lung exam is improved as noted above. We will continue her antibiotics as noted above. Qualifiers: Chronicity: acute Qualified Code(s): J96.01 - Acute respiratory failure with hypoxia (4) Diabetes mellitus type 1 with complications Current Visit: Yes Status: Chronic Assessment and plan: Patient has type 1 diabetes. She has her home glucose monitor. Continue Accu- Cheks. She did not have any hypoglycemic events in the last 24 hours. Continue diabetic diet. Patient had visited the family educator but stated she did not need any help. (5) Gastroparesis due to DM Current Visit: Yes Status: Chronic Assessment and plan: Patient has gastroparesis due to her type 1 diabetes. She is being treated with Phenergan. Patient says her appetite is decreased due to her gastroparesis. I recommended taking the Phenergan right before a meal to prevent nausea (6) Generalized anxiety disorder Current Visit: Yes Status: Chronic Assessment and plan: Continuing home dose of Ativan. (7) Hypertension Current Visit: No Status: Chronic Assessment and plan: Patient's blood pressure has been controlled at 120/60 since admission. We will continue labetalol . We will restart her lisinopril. Qualifiers: Hypertension type: essential hypertension Qualified Code(s): I10 - Essential (primary) hypertension - Subjective Interval history: 30 for a female admitted for multifocal pneumonia. Patient states her cough and breathing has improved from yesterday. She denies any chest pain, fevers, nausea, vomiting. - Constitutional Vitals: Temp Pulse Resp BP Pulse Ox 98.6 F 80 16 139/80 96 10/20/16 08:15 10/20/16 08:15 10/20/16 08:15 10/20/16 08:15 10/20/16 08:15 General appearance: Present: A&O X 3, answers questions appropriately - Head Head exam: Present: atraumatic, normocephalic - Eye Eye exam: Present: PERRL, conjuntiva pink, sclera anicteric - Neck Neck exam general surgery: Present: supple, trachea midline. Absent: lymphadenopathy - Respiratory Respiratory exam: Present: decreased breath sounds, rhonchi, wheezes. Absent: accessory muscle use, rales - Cardiovascular Cardiovascular exam: Present: RRR, +S1, +S2. Absent: diastolic murmur, gallop, rubs, systolic murmur - GI/Abdominal GI/Abdominal exam: Present: normal bowel sounds, soft, no peritoneal signs. Absent: distended, tenderness - Extremities Exam Extremities exam: Present: warm, radial pulses palpable and symetrical. Absent : calf tenderness, cyanotic, pedal edema - Neurological Exam Neurological exam: Present: CN II-XII intact, oriented X3, no focal deficits. Absent: pronater drift, facial droop, speech deficit - Skin Skin exam: Present: dry, intact Internal Medicine: Result - Labs CBC & Chem 7: 10/20/16 04:07 10/20/16 04:07 Labs: Short CBC 10/20/16 Range/Units 04:07 WBC 8.7 (4.3-11.1) K/mcL Hgb 11.1 L (11.5-15.4) g/dL Hct 32.4 L (35.3-44.9) % Plt Count 313 D (140-400) K/mcL Neutrophils # 4.4 (1.6-8.9) K/mcL BMP 10/20/16 04:07 Sodium 138 Potassium 3.2 L Chloride 106 Carbon Dioxide 21 BUN 6 L Creatinine 0.65 Glucose 43 L Calcium 8.5 L Consult Discharge Plan - Plan Referrals: Domingo Humphrey DO [Primary Care Provider] - <Sherman Adames - Last Filed: 10/20/16 18:40> Date of Encounter: 10/20/16 - Assessment and plan (1) Respiratory failure with hypoxia Current Visit: Yes Status: Resolved Qualifiers: Chronicity: acute Qualified Code(s): J96.01 - Acute respiratory failure with hypoxia (2) Hypomagnesemia Current Visit: Yes Status: Resolved (3) Hypokalemia Current Visit: Yes Status: Acute Assessment and plan: Persists - replacing. (4) Sepsis due to pneumonia Current Visit: Yes Status: Acute (5) UTI (urinary tract infection) Current Visit: Yes Status: Resolved Qualifiers: Urinary tract infection type: acute cystitis Hematuria presence: with hematuria Qualified Code(s): N30.01 - Acute cystitis with hematuria (6) Diabetes mellitus type 1 with complications Current Visit: Yes Status: Chronic (7) Gastroparesis due to DM Current Visit: Yes Status: Chronic (8) Generalized anxiety disorder Current Visit: Yes Status: Chronic (9) Chest pain Current Visit: Yes Status: Acute Qualifiers: Chest pain type: intercostal pain Qualified Code(s): R07.82 - Intercostal pain - Constitutional Vitals: Temp Pulse Resp BP Pulse Ox 97.9 F 87 14 137/86 97 10/20/16 15:59 10/20/16 15:59 10/20/16 15:59 10/20/16 15:59 10/20/16 15:59 Internal Medicine: Result - Labs CBC & Chem 7: 10/20/16 04:07 10/20/16 04:07 Labs: Short CBC 10/20/16 Range/Units 04:07 WBC 8.7 (4.3-11.1) K/mcL Hgb 11.1 L (11.5-15.4) g/dL Hct 32.4 L (35.3-44.9) % Plt Count 313 D (140-400) K/mcL Neutrophils # 4.4 (1.6-8.9) K/mcL BMP 10/20/16 04:07 Sodium 138 Potassium 3.2 L Chloride 106 Carbon Dioxide 21 BUN 6 L Creatinine 0.65 Glucose 43 L Calcium 8.5 L - Attending Attestation I examined this patient and my medical decision-making was reviewed with the Resident Physician on 10/20/16. I agree with the documented findings, disposition and treatment plan as described except to the extent set forth below. Ms. Gaming is currently admitted for hypoxia and pneumonia. She remains moderate to high risk due to potential for worsening respiratory status and hypoglycemia. Ms. Gaming continues to not eat well and her blood sugar is low at times. Still coughing but less. No fever noted. Having some loose stool today. Exam Alert. Comfortable Heart reg Wheeze and rhonchi noted No edema I/P 1. Hypoxic resp failure 2. CAP 3. DM Further diagnoses and plan as above.
[2016-10-20] MEDS: *HR* LORazepam 1 MG TABLET PO PRN (11:50)
[2016-10-20] MEDS ORDERED: *HR* HYDROmorphone (PF) 1 MG/ML SYRINGE IVP SCH (12:00)
[2016-10-20] MEDS ORDERED: *HR* HYDROmorphone (PF) 1 MG/ML SYRINGE IVP PRN (12:02)
[2016-10-20] MEDS ORDERED: Ondansetron ODT 4 MG TAB.RAPDIS SL PRN (12:14)
[2016-10-20] MEDS ORDERED: *HR* OxyCODONE/APAP 10/325 TABLET PO PRN (12:21)
[2016-10-20] MEDS: Gabapentin 400 MG CAPSULE PO SCH ×2 (15:56→22:53)
[2016-10-20] MEDS ORDERED: Azithromycin 250 MG TABLET PO SCH (19:00)
[2016-10-20] MEDS ORDERED: Azithromycin 500 MG in D5% in Water 250 ML IVPB SCH (19:00)
[2016-10-21] MEDS: Albuterol 2.5 MG/3 ML NEBULIZER IH SCH ×2 (04:10→11:03)
[2016-10-21] MEDS: *HR* Enoxaparin 40 MG/0.4 ML SYRINGE SQ SCH (04:56)
[2016-10-21] MEDS: *HR* HYDROmorphone (PF) 1 MG/ML SYRINGE IVP PRN ×2 (04:59→09:32)
[2016-10-21 05:28] LABS: Hematocrit 37.5 % (35.3-44.9); Hemoglobin 12.4 g/dL (11.5-15.4); Mean Corpuscular HGB Conc 33.1 g/dL (31.6-35.5); Mean Corpuscular Hemoglobin 29.4 pg (28.0-33.3); Mean Corpuscular Volume 88.9 fL (83.0-100.0); Mean Platelet Volume 10.4 fL (9.4-12.4); Platelet Count 228 K/mcL (140-400); Red Blood Count 4.22 M/mcL (3.82-4.97); Red Cell Distribution Width 13.1 % (11.5-14.5)
[2016-10-21 05:46] LABS: BUN/Creatinine Ratio 13 (6-26); Blood Urea Nitrogen 9 mg/dL (7-20); Calcium 8.8 mg/dL (8.6-10.8); Carbon Dioxide 21 mEq/L (19-29); Chloride 106 mEq/L (98-109); Glucose 89 mg/dL (70-99); Osmolality,Calculated 284 (280-300); Potassium 3.6 mEq/L (3.5-4.5); Sodium 138 mEq/L (136-145); eGFR For African Americans > 60 (> 60); eGFR For Non-African Americans > 60 (> 60)
[2016-10-21 06:07] LABS: Eosinophils # 0.1 K/mcL (0.0-0.6); Lymphocytes # 2.9 K/mcL (0.6-4.6); Monocytes # 0.4 K/mcL (0.0-1.3); Neutrophils # 2.5 K/mcL (1.6-8.9); Platelet Estimate Normal (Normal)
[2016-10-21 06:08] LABS: Reactive Lymphocytes Present (Not Present)
[2016-10-21 07:39] VITALS: BP 135/84
--- NOTE | 2016-10-21 08:40 | Pulmonology Progress Note ---
Date of Encounter: 10/21/16 Time of Encounter: 08:34 Assessment and Plan (1) Abnormal chest CT Current Visit: Yes Status: Acute The abnormal findings noted from CT scan of the chest are (parenchymal infiltrates) related to community-acquired pneumonia. I would recommend transitioning off IV antibiotic to enteral antibiotic and completing a 7-8 day course of therapy in total. The patient should undergo follow-up chest imaging in approximately 2 weeks in order to discern clearance of infiltrates. I reviewed the importance of smoking cessation with this patient in light of her underlying medical history including asthma (intermittent). Given persistence of wheeze noted from chest auscultation, I think the patient should be placed on an inhaled corticosteroid combination long-acting beta agonist product (Symbicort, Adavair, Breo). Furthermore, I think it would be reasonable to provide a tapering course of prednisone over the next 7 days to enhance ttreatment of Aathma and obviously this would mandate adjustment of insulin in this patient with type 1 diabetes mellitus. From my perspective, the patient can be released from the hospital. [facility] [phone] Code(s): R93.8 - Abnormal findings on diagnostic imaging of other specified body structures SNOMED Code(s): 779459161 Subjective Principal diagnosis: Pneumonia, commuinty acquired Interval history: Currently, the patient notes mild cough without sputum production as well as chest congestion and chest tightness. Overall, she notes an improvement of her respiratory status since admission to the hospital. Objective PUL Vital signs: Last Vital Signs Temp 98.0 F 10/21/16 07:32 Pulse 88 10/21/16 07:32 Resp 16 10/21/16 07:32 BP 135/84 10/21/16 07:32 Pulse Ox 95 10/21/16 07:32 General appearance: no acute distress Eyes: nonicteric ENT: oropharynx moist Neck: supple Effort: normal Auscultation: bilateral: wheezes Cardiovascular: regular rate and rhythm Gastrointestinal: normoactive bowel sounds, non-distended Integumentary: normal Extremities: no cyanosis Musculoskeletal: no deformities normal mental status, non-focal exam Results - Laboratory Findings CBC and BMP: 10/21/16 05:09 10/21/16 05:09 Abnormal lab findings: Abnormal lab results Band Neutrophils % 6.0 % (0-4) H 10/21/16 05:09 Metamyelocytes % 2.0 % (0) H 10/21/16 05:09 Nucleated RBCs/100 WBC 0.2 /100 WBC (0) H 10/16/16 08:51 Reactive Lymphocytes Present (Not Present) A 10/21/16 05:09 Toxic Granulation Present (Not Present) A 10/15/16 07:01 Toxic Vacuolation Present (Not Present) A 10/15/16 07:01 Dohle Bodies Present (Not Present) A 10/15/16 07:01 Hypochromasia Present (Not Present) A 10/17/16 05:46 POC Glucose 206 (58-89) H 10/20/16 15:59 Alkaline Phosphatase 281 Units/L (38-126) H 10/19/16 04:17 Albumin 2.1 g/dL (3.5-5.0) L 10/19/16 04:17 Globulin 4.1 g/dL (2.4-3.5) H 10/19/16 04:17 Albumin/Globulin Ratio 0.5 (1.1-2.2) L 10/19/16 04:17 Urine Clarity Cloudy (Clear) A 10/14/16 10:26 Urine Protein 30 mg/dL (Neg-Trace) H 10/14/16 10:26 Urine Glucose (UA) 100 mg/dL (Normal) H 10/14/16 10:26 Urine Blood Trace (Negative) H 10/14/16 10:26 Urine Nitrite Positive (Negative) A 10/14/16 10:26 Urine Bilirubin Moderate (Negative) H 10/14/16 10:26 Urine Urobilinogen 2.0 mg/dL (Normal) H 10/14/16 10:26 Ur Leukocyte Esterase Large (Negative) H 10/14/16 10:26 Urine Microscopic RBC 5-15 per hpf (0-3) H 10/14/16 10:26 Urine Microscopic WBC TNTC per hpf (0-3) H 10/14/16 10:26 Ur Squamous Epith Cells Many per lpf (None-Few) H 10/14/16 10:26 Urine Bacteria Many per hpf (None-Few) H 10/14/16 10:26 Ur Culture Indicated? YES (NO) A 10/14/16 10:26 Urine Opiates Screen Positive ng/mL (Ldedkm=596) H 10/14/16 10:22 U Marijuana (THC) Screen Positive ng/mL (Cutoff = 50) H 10/14/16 10:22 - Clinical Findings Intake & Output: Intake & Output 10/20/16 10/21/16 10/21/16 23:59 07:59 15:59 Intake Total 120 / 120 240 / 240 Balance 120 / 120 240 / 240 Weight 88.4 kg Consult Discharge Plan - Plan Referrals: Domingo Humphrey DO [Primary Care Provider] -
[2016-10-21] MEDS: Gabapentin 400 MG CAPSULE PO SCH (09:30)
[2016-10-21] MEDS: Furosemide 20 MG TABLET PO SCH (09:30)
[2016-10-21] MEDS: Magnesium Oxide 400 MG TABLET PO SCH (09:30)
--- NOTE | 2016-10-21 09:54 | Discharge Summary ---
Addendum entered and electronically signed by Bradley Corcoran DO 14:41: 36-year-old female presented with complaints of fevers chills nausea, productive cough, fatigue, body aches. She was determined to have sepsis secondary to right multifocal pneumonia as shown in her CT chest. Initially patient was on 4 L oxygen, started on Levaquin, and Tessalon for cough. She was also started on Percocet for pain management secondary to cough. Patient also complained about UTI and urine culture showed growth of gram-negative rivas. This was also treated with IV Levaquin. For the first 2 days patient's respiratory status remained the same. Repeat CT chest showed no improvement of her pneumonia from previous scan. She remained dyspneic, on 4 L oxygen. Her antibiotics were changed to ceftriaxone and Zithromax. She was also started on Mucomyst. Afterwards there was a gradual improvement in her lung exam with increase aeration, decreased cough, patient was weaned off oxygen successfully. Pulmonology was consulted due to her extensive pneumonia. He recommended staying on course of antibiotics. Today patient's lung exam showed minor rhonchi and wheezing. She states her pleuritic chest pain has improved. She has less chest pain with cough. She is able to ambulate without difficulty and has good oral intake. Furthermore she has resolution of dysuria and frequency. Over the course of her stay patient had difficulty controlling her glucose. She has a history of type 1 diabetes and has an insulin pump. There were multiple episodes overnight where her glucose levels decreased to 45. At these times patient would deny any food offered. She stated that this was due to her decreased appetite secondary to her gastroparesis. Patient stated that at home she would take Phenergan and Zofran before each meal to prevent nausea/vomiting and this helped her appetite. We follow this protocol and patient's oral intake improved and she did not have any hypoglycemic episodes. It was also noted that the patient was asking for pain medication out of proportion to her pain and disease. At first she was started on Percocet 5/ 325. Patient stated that only persistent Percocet 15 helped with her pain. She also takes Klonopin at home for anxiety and Phenergan for nausea from gastroparesis. At first her pain medication was gradually increased, but it was noted that patient may have been using this for secondary benefit rather than pain control. Her pain medication was gradually decreased to Percocet 5/ 325 at discharge. Original Note: <Bradley Corcoran - Last Filed: 10/21/16 09:45> Date of Encounter: 10/21/16 Time of Encounter: 09:45 - Discharge Diagnosis (1) Sepsis due to pneumonia Priority: Primary Status: Acute (2) UTI (urinary tract infection) Priority: Secondary Status: Resolved Qualifiers: Urinary tract infection type: acute cystitis Hematuria presence: with hematuria Qualified Code(s): N30.01 - Acute cystitis with hematuria (3) Respiratory failure with hypoxia Priority: Secondary Status: Resolved Qualifiers: Chronicity: acute Qualified Code(s): J96.01 - Acute respiratory failure with hypoxia (4) Diabetes mellitus type 1 with complications Priority: Secondary Status: Chronic (5) Gastroparesis due to DM Priority: Secondary Status: Chronic (6) Generalized anxiety disorder Priority: Secondary Status: Chronic (7) Hypertension Priority: Secondary Status: Chronic Qualifiers: Hypertension type: essential hypertension Qualified Code(s): I10 - Essential (primary) hypertension - Discharge Medications Prescriptions: Azithromycin [Zithromax] 500 mg PO Q24H #5 tablet Benzonatate [Tessalon] 100 mg PO TID PRN #45 capsule PRN Reason: Cough Budesonide/Formoterol 80/4.5 [Symbicort 80/4.5] 1 puff IH BID 90 Days Oxycodone HCl/Acetaminophen [Percocet 5-325 mg Tablet] 1 each PO Q6H #28 tablet PredniSONE 10 mg PO TAPER #22 tablet Home Medications: Insulin ASPART [NovoLOG] 0 unit .ROUTE AD 04/17/15 [History] Labetalol [Trandate] 100 mg PO BID 04/17/15 [History] Lisinopril [Zestril] 10 mg PO DAILY 04/17/15 [History] Albuterol Sulfate [Albuterol Inhaler] 1 - 2 puff IH Q4HR PRN 06/19/15 [History] Gabapentin [Neurontin] 800 mg PO TID 06/19/15 [History] LORazepam [Ativan] 2 mg PO TID 06/19/15 [History] Orphenadrine [Norflex] 100 mg PO BID #14 tablet.er 12/08/15 [Rx] Estradiol 2 mg PO DAILY 08/03/16 [History] Ondansetron ODT [Zofran ODT] 4 mg SL Q6HR PRN #8 tab.rapdis 08/17/16 [Rx] Esomeprazole Magnesium [Nexium] 40 mg PO BID 08/23/16 [History] Melatonin/Pyridoxine HCl (B6) [Melatonin 5 mg Tablet] 10 mg PO HS PRN 10/14/16 [ History] Azithromycin [Zithromax] 500 mg PO Q24H #5 tablet 10/21/16 [Rx] Benzonatate [Tessalon] 100 mg PO TID PRN #45 capsule 10/21/16 [Rx] Budesonide/Formoterol 80/4.5 [Symbicort 80/4.5] 1 puff IH BID 90 Days 10/21/16 [Rx] Oxycodone HCl/Acetaminophen [Percocet 5-325 mg Tablet] 1 each PO Q6H #28 tablet 10/21/16 [Rx] PredniSONE 10 mg PO TAPER #22 tablet 10/21/16 [Rx] Allergies/Adverse Reactions: Allergies Cortisone Allergy (Verified 08/24/16 12:01) Anaphylaxis ketorolac [From Toradol] Allergy (Verified 10/14/16 13:13) Anaphylaxis latex Allergy (Verified 08/24/16 12:01) Hives metoclopramide [From Reglan] Allergy (Verified 08/24/16 12:01) Anaphylaxis morphine Allergy (Verified 08/24/16 12:01) Anaphylaxis tramadol [From Ultram] Adverse Reaction (Verified 08/24/16 12:01) Nausea Zolpidem [From Ambien] Adverse Reaction (Verified 08/24/16 12:01) Insomnia Procedures/tests Complete & Pending: Procedures Performed prior 72 hours Category Date Time Status CT chest w con [CT] Routine Cat Scan 10/19/16 10:30 Completed Date of admission: 10/14/16 17:06 Primary care physician: Domingo Humphrey DO Consults: 10/16/16 12:05 Consult to Buttonhole Maker [CONS] Routine Comment: 10/18/16 08:14 Consult to Nurse Navigator [CONS] Routine Comment: 10/19/16 13:16 Consult to Pulmonology [CONS] Routine Consulting Provider: [facility] Reason for Consult: pneumonia Call Completed: Yes Discharging clinician: Bradley Corcoran Anticipated date of discharge: 10/21/16 - Patient Status Disposition: Home, Self-Care Condition: Fair Functional capacity at discharge: independent ambulation Overall status at discharge: patient is progressing back to baseline - Discharge Instructions Follow Up With: Esther Gunn MD [Partnered Physician] - 10/28/16 11:30 am Domingo Humphrey DO [Primary Care Provider] - 10/29/16 11:30 am - Diet and Activity Activity: increase activity as tolerated Diet: diabetic diet Hospital course: Ms. Gaming is a 36 year old female - Time Spent with Patient Total time spent providing and/or coordinating discharge services: - Constitutional Vitals: Temp Pulse Resp BP Pulse Ox 98.0 F 88 16 135/84 95 10/21/16 07:32 10/21/16 07:32 10/21/16 07:32 10/21/16 07:32 10/21/16 07:32 General appearance: Present: A&O X 3, answers questions appropriately <Sherman Adames - Last Filed: 10/21/16 13:39> Date of Encounter: 10/21/16 - Discharge Diagnosis (1) Respiratory failure with hypoxia Status: Resolved Qualifiers: Chronicity: acute Qualified Code(s): J96.01 - Acute respiratory failure with hypoxia (2) Sepsis due to pneumonia Status: Acute (3) Hypomagnesemia Priority: Secondary Status: Resolved (4) Hypokalemia Priority: Secondary Status: Acute (5) UTI (urinary tract infection) Status: Resolved Qualifiers: Urinary tract infection type: acute cystitis Hematuria presence: with hematuria Qualified Code(s): N30.01 - Acute cystitis with hematuria (6) Diabetes mellitus type 1 with complications Status: Chronic (7) Gastroparesis due to DM Status: Chronic (8) Generalized anxiety disorder Status: Chronic (9) Chest pain Priority: Secondary Status: Resolved Qualifiers: Chest pain type: intercostal pain Qualified Code(s): R07.82 - Intercostal pain Procedures/tests Complete & Pending: Procedures Performed prior 72 hours Category Date Time Status CT chest w con [CT] Routine Cat Scan 10/19/16 10:30 Completed Date of admission: 10/14/16 17:06 Primary care physician: Domingo Humphrey DO Consults: 10/16/16 12:05 Consult to Buttonhole Maker [CONS] Routine Comment: 10/18/16 08:14 Consult to Nurse Navigator [CONS] Routine Comment: 10/19/16 13:16 Consult to Pulmonology [CONS] Routine Consulting Provider: [facility] Reason for Consult: pneumonia Call Completed: Yes Hospital course: Ms. Gaming is a 36 year old female - Time Spent with Patient Total time spent providing and/or coordinating discharge services: 39min - Constitutional Vitals: Temp Pulse Resp BP Pulse Ox 98.0 F 88 18 135/84 94 L 10/21/16 07:32 10/21/16 07:32 10/21/16 11:03 10/21/16 07:32 10/21/16 11:03 - Attending Attestation I examined this patient and my medical decision-making was reviewed with the Resident Physician on 10/21/16. I agree with the documented findings, disposition and treatment plan as described except to the extent set forth below. Ms. Gaming is doing fair today but feels OK enough to go home. No fever or chills. Not requiring oxygen. Still coughing but less overall. Exam Alert. Comfortable Heart reg Still with wheeze and rhonchi but overall improved Plan D/C today Follow up with PCP.
== END 2016-10-21 14:15 | disposition home or self-care (01) | DRG 720 ==
LOC: 3ANU 08:51 → EMEROO 08:51 → 3ANU 13:40 → 2NENU 15:56 → SUATTDRO 17:06
PROVIDERS: ADMIT Internal Medicine; ATTEND Internal Medicine

== ENCOUNTER 2017-07-10 21:39 | Inpatient (IN) ==
[2017-07-10] MEDS ORDERED: 0.9 % Sodium Chloride 1,000 ML IVC ONE (21:54)
--- NOTE | 2017-07-10 21:55 | Emergency Department Note ---
Disposition Clinical Impression: DKA (diabetic ketoacidoses) Disposition: Admitted As Inpatient Condition: Fair General Adult HPI - General Chief complaint: ED Nausea/Vomiting/Diarrhea Stated complaint: Hyperglycemic Time Seen by Provider: 07/10/17 21:50 Source: patient - History of Present Illness Pain Scale: 7 - Related Data Home Medications Medication Instructions Recorded Confirmed Insulin ASPART [NovoLOG] 0 unit .ROUTE AD 04/17/15 05/07/17 Labetalol [Trandate] 100 mg PO BID 04/17/15 05/07/17 Lisinopril [Zestril] 10 mg PO DAILY 04/17/15 05/07/17 Albuterol Sulfate [Albuterol 1 - 2 puff IH Q4HR PRN 06/19/15 05/07/17 Inhaler] Gabapentin [Neurontin] 800 mg PO TID 06/19/15 05/07/17 LORazepam [Ativan] 1 mg PO TID 06/19/15 05/07/17 Estradiol 2 mg PO DAILY 08/03/16 05/07/17 Esomeprazole Magnesium [Nexium] 40 mg PO BID 08/23/16 05/07/17 Rosuvastatin Calcium [Crestor] 10 mg PO DAILY 05/07/17 05/07/17 Previous Rx's Medication Instructions Recorded Orphenadrine [Norflex] 100 mg PO BID #14 tablet.er 12/08/15 Oxycodone HCl/Acetaminophen 1 - 2 each PO Q6H PRN #16 tablet 06/07/17 [Percocet 5-325 mg Tablet] Promethazine [Phenergan] 25 mg PO Q6HR PRN #16 tablet 06/07/17 Diclofenac Sodium [Voltaren] 1 appl TP QID #100 gm 07/07/17 Lidocaine Patch [Lidoderm 5% patch] 1 each TP DAILY #6 adh..patch 07/07/17 Allergies Allergy/AdvReac Type Severity Reaction Status Date / Time Cortisone Allergy Anaphylaxis Verified 07/10/17 21:41 ketorolac [From Toradol] Allergy Anaphylaxis Verified 07/10/17 21:41 latex Allergy Hives Verified 07/10/17 21:41 metoclopramide [From Reglan] Allergy Anaphylaxis Verified 07/10/17 21:41 morphine Allergy Anaphylaxis Verified 07/10/17 21:41 tramadol [From Ultram] AdvReac Nausea Verified 07/10/17 21:41 Zolpidem [From Ambien] AdvReac Insomnia Verified 07/10/17 21:41 Past Medical History - Past Medical History Medical history: Reports: asthma, diabetes, GERD, hypertension, other Surgical history: Reports: appendectomy, cholecystectomy, hysterectomy, knee replacement, other Psychiatric history: Reports: anxiety, depression, panic disorder 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 - Social History Smoking Status: Former smoker Smokeless Tobacco Status: No Alcohol use: Reports: none Drug use: Reports: none Physical Exam - General General appearance: alert Course Vital Signs Temperature 97.6 F 07/10/17 21:41 Pulse Rate 105 07/10/17 21:41 Respiratory Rate 16 07/10/17 21:41 Blood Pressure 179/99 07/10/17 21:41 O2 Sat by Pulse Oximetry 97 07/10/17 21:41 Temperature 97.8 F 07/11/17 03:45 Pulse Rate 84 07/11/17 03:45 Respiratory Rate 18 07/11/17 03:45 Blood Pressure 126/70 07/11/17 03:45 O2 Sat by Pulse Oximetry 94 07/11/17 03:45 Oxygen Delivery Oxygen Delivery Room Air Medical Decision Making - Lab Data Result diagrams: 07/10/17 22:17 07/11/17 01:05 Lab Results 07/10/17 07/10/17 07/10/17 Range/Units 21:43 21:44 22:07 WBC (4.3-11.1) K/mcL RBC (3.82-4.97) M/mcL Hgb (11.5-15.4) g/dL Hct (35.3-44.9) % MCV (83.0-100.0) fL MCH (28.0-33.3) pg MCHC (31.6-35.5) g/dL RDW (11.5-14.5) % Plt Count (140-400) K/mcL MPV (9.4-12.4) fL Immature Gran % (0-4) % Seg Neutrophils % % Lymphocytes % % Monocytes % % Eosinophils % % Basophils % % Neutrophils # (1.6-8.9) K/mcL Lymphocytes # (0.6-4.6) K/mcL Monocytes # (0.0-1.3) K/mcL Eosinophils # (0.0-0.6) K/mcL Basophils # (0.0-0.2) K/mcL VBG pH (7.32-7.42) pH Units VBG pCO2 (41-51) mmHg VBG pO2 (25-50) mmHg VBG HCO3 (21-27) mEq/L Sodium (136-145) mEq/L Potassium (3.5-4.5) mEq/L Chloride (98-109) mEq/L Carbon Dioxide (19-29) mEq/L BUN (7-20) mg/dL Creatinine (0.57-1.11) mg/dL Est GFR ( Amer) (> 60) Est GFR (Non-Af Amer) (> 60) BUN/Creatinine Ratio (6-26) Glucose (70-99) mg/dL POC Glucose > 600 H* > 600 H* (58-89) Est Mean Plasma Glucose mg/dl Hemoglobin A1c ( - 5.6) % Calculated Osmolality (280-300) Calcium (8.6-10.8) mg/dL Total Bilirubin (0.2-1.2) mg/dL AST (5-34) Units/L ALT (0-55) Units/L Alkaline Phosphatase (38-126) Units/L Serum Total Protein (6.0-8.3) g/dL Albumin (3.5-5.0) g/dL Globulin (2.4-3.5) g/dL Albumin/Globulin Ratio (1.1-2.2) Lipase (8-78) Units/L Beta-Hydroxybutyric Acd (0.02-0.27) mmol/L Urine Color Yellow (Yellow) Urine Clarity Clear (Clear) Urine pH 7.0 (5.0-8.0) pH Units Ur Specific [place] 1.025 (1.010-1.025) Urine Protein Negative (Neg-Trace) mg/dL Urine Glucose (UA) >=1000 H (Normal) mg/dL Urine Ketones Trace H (Negative) mg/dL Urine Blood Trace H (Negative) Urine Nitrite Negative (Negative) Urine Bilirubin Negative (Negative) Urine Urobilinogen Normal (Normal) mg/dL Ur Leukocyte Esterase Negative (Negative) Urine Microscopic RBC 0-3 (0-3) per hpf Urine Microscopic WBC 0-3 (0-3) per hpf Ur Squamous Epith Cells Many H (None-Few) per lpf Urine Bacteria None Seen (None-Few) per hpf Hyaline Casts None Seen (None-Few) per lpf Urine Test (Negative) 07/10/17 07/10/17 07/10/17 Range/Units 22:07 22:17 22:17 WBC 6.1 (4.3-11.1) K/mcL RBC 4.38 (3.82-4.97) M/mcL Hgb 13.3 (11.5-15.4) g/dL Hct 39.1 (35.3-44.9) % MCV 89.3 (83.0-100.0) fL MCH 30.4 (28.0-33.3) pg MCHC 34.0 (31.6-35.5) g/dL RDW 12.5 (11.5-14.5) % Plt Count 187 (140-400) K/mcL MPV 10.1 (9.4-12.4) fL Immature Gran % 0.2 (0-4) % Seg Neutrophils % 79.0 % Lymphocytes % 16.0 % Monocytes % 2.6 % Eosinophils % 1.5 % Basophils % 0.7 % Neutrophils # 4.9 (1.6-8.9) K/mcL Lymphocytes # 1.0 (0.6-4.6) K/mcL Monocytes # 0.2 (0.0-1.3) K/mcL Eosinophils # 0.1 (0.0-0.6) K/mcL Basophils # 0.0 (0.0-0.2) K/mcL VBG pH (7.32-7.42) pH Units VBG pCO2 (41-51) mmHg VBG pO2 (25-50) mmHg VBG HCO3 (21-27) mEq/L Sodium 126 L (136-145) mEq/L Potassium 4.7 H (3.5-4.5) mEq/L Chloride 91 L (98-109) mEq/L Carbon Dioxide 20 (19-29) mEq/L BUN 21 H (7-20) mg/dL Creatinine 1.68 H (0.57-1.11) mg/dL Est GFR ( Amer) 42 L (> 60) Est GFR (Non-Af Amer) 35 L (> 60) BUN/Creatinine Ratio 13 (6-26) Glucose 940 H* (70-99) mg/dL POC Glucose (58-89) Est Mean Plasma Glucose mg/dl Hemoglobin A1c ( - 5.6) % Calculated Osmolality 312 H (280-300) Calcium 10.0 (8.6-10.8) mg/dL Total Bilirubin 1.2 (0.2-1.2) mg/dL AST 27 (5-34) Units/L ALT 36 (0-55) Units/L Alkaline Phosphatase 201 H (38-126) Units/L Serum Total Protein 8.4 H (6.0-8.3) g/dL Albumin 4.2 (3.5-5.0) g/dL Globulin 4.2 H (2.4-3.5) g/dL Albumin/Globulin Ratio 1.0 L (1.1-2.2) Lipase < 10 (8-78) Units/L Beta-Hydroxybutyric Acd 0.85 H (0.02-0.27) mmol/L Urine Color (Yellow) Urine Clarity (Clear) Urine pH (5.0-8.0) pH Units Ur Specific [place] (1.010-1.025) Urine Protein (Neg-Trace) mg/dL Urine Glucose (UA) (Normal) mg/dL Urine Ketones (Negative) mg/dL Urine Blood (Negative) Urine Nitrite (Negative) Urine Bilirubin (Negative) Urine Urobilinogen (Normal) mg/dL Ur Leukocyte Esterase (Negative) Urine Microscopic RBC (0-3) per hpf Urine Microscopic WBC (0-3) per hpf Ur Squamous Epith Cells (None-Few) per lpf Urine Bacteria (None-Few) per hpf Hyaline Casts (None-Few) per lpf Urine Test Negative (Negative) 07/10/17 07/10/17 07/11/17 Range/Units 22:17 22:27 00:53 WBC (4.3-11.1) K/mcL RBC (3.82-4.97) M/mcL Hgb (11.5-15.4) g/dL Hct (35.3-44.9) % MCV (83.0-100.0) fL MCH (28.0-33.3) pg MCHC (31.6-35.5) g/dL RDW (11.5-14.5) % Plt Count (140-400) K/mcL MPV (9.4-12.4) fL Immature Gran % (0-4) % Seg Neutrophils % % Lymphocytes % % Monocytes % % Eosinophils % % Basophils % % Neutrophils # (1.6-8.9) K/mcL Lymphocytes # (0.6-4.6) K/mcL Monocytes # (0.0-1.3) K/mcL Eosinophils # (0.0-0.6) K/mcL Basophils # (0.0-0.2) K/mcL VBG pH 7.29 L (7.32-7.42) pH Units VBG pCO2 51 (41-51) mmHg VBG pO2 51 H (25-50) mmHg VBG HCO3 25 (21-27) mEq/L Sodium (136-145) mEq/L Potassium (3.5-4.5) mEq/L Chloride (98-109) mEq/L Carbon Dioxide (19-29) mEq/L BUN (7-20) mg/dL Creatinine (0.57-1.11) mg/dL Est GFR ( Amer) (> 60) Est GFR (Non-Af Amer) (> 60) BUN/Creatinine Ratio (6-26) Glucose (70-99) mg/dL POC Glucose > 600 H* (58-89) Est Mean Plasma Glucose 157 mg/dl Hemoglobin A1c 7.1 H ( - 5.6) % Calculated Osmolality (280-300) Calcium (8.6-10.8) mg/dL Total Bilirubin (0.2-1.2) mg/dL AST (5-34) Units/L ALT (0-55) Units/L Alkaline Phosphatase (38-126) Units/L Serum Total Protein (6.0-8.3) g/dL Albumin (3.5-5.0) g/dL Globulin (2.4-3.5) g/dL Albumin/Globulin Ratio (1.1-2.2) Lipase (8-78) Units/L Beta-Hydroxybutyric Acd (0.02-0.27) mmol/L Urine Color (Yellow) Urine Clarity (Clear) Urine pH (5.0-8.0) pH Units Ur Specific [place] (1.010-1.025) Urine Protein (Neg-Trace) mg/dL Urine Glucose (UA) (Normal) mg/dL Urine Ketones (Negative) mg/dL Urine Blood (Negative) Urine Nitrite (Negative) Urine Bilirubin (Negative) Urine Urobilinogen (Normal) mg/dL Ur Leukocyte Esterase (Negative) Urine Microscopic RBC (0-3) per hpf Urine Microscopic WBC (0-3) per hpf Ur Squamous Epith Cells (None-Few) per lpf Urine Bacteria (None-Few) per hpf Hyaline Casts (None-Few) per lpf Urine Test (Negative) 07/11/17 07/11/17 Range/Units 00:54 01:05 WBC (4.3-11.1) K/mcL RBC (3.82-4.97) M/mcL Hgb (11.5-15.4) g/dL Hct (35.3-44.9) % MCV (83.0-100.0) fL MCH (28.0-33.3) pg MCHC (31.6-35.5) g/dL RDW (11.5-14.5) % Plt Count (140-400) K/mcL MPV (9.4-12.4) fL Immature Gran % (0-4) % Seg Neutrophils % % Lymphocytes % % Monocytes % % Eosinophils % % Basophils % % Neutrophils # (1.6-8.9) K/mcL Lymphocytes # (0.6-4.6) K/mcL Monocytes # (0.0-1.3) K/mcL Eosinophils # (0.0-0.6) K/mcL Basophils # (0.0-0.2) K/mcL VBG pH (7.32-7.42) pH Units VBG pCO2 (41-51) mmHg VBG pO2 (25-50) mmHg VBG HCO3 (21-27) mEq/L Sodium 129 L (136-145) mEq/L Potassium 4.1 (3.5-4.5) mEq/L Chloride 96 L (98-109) mEq/L Carbon Dioxide 19 (19-29) mEq/L BUN 22 H (7-20) mg/dL Creatinine 1.43 H (0.57-1.11) mg/dL Est GFR ( Amer) 51 L (> 60) Est GFR (Non-Af Amer) 42 L (> 60) BUN/Creatinine Ratio 15 (6-26) Glucose 786 H* (70-99) mg/dL POC Glucose > 600 H* (58-89) Est Mean Plasma Glucose mg/dl Hemoglobin A1c ( - 5.6) % Calculated Osmolality 310 H (280-300) Calcium 9.1 (8.6-10.8) mg/dL Total Bilirubin (0.2-1.2) mg/dL AST (5-34) Units/L ALT (0-55) Units/L Alkaline Phosphatase (38-126) Units/L Serum Total Protein (6.0-8.3) g/dL Albumin (3.5-5.0) g/dL Globulin (2.4-3.5) g/dL Albumin/Globulin Ratio (1.1-2.2) Lipase (8-78) Units/L Beta-Hydroxybutyric Acd 1.58 H (0.02-0.27) mmol/L Urine Color (Yellow) Urine Clarity (Clear) Urine pH (5.0-8.0) pH Units Ur Specific [place] (1.010-1.025) Urine Protein (Neg-Trace) mg/dL Urine Glucose (UA) (Normal) mg/dL Urine Ketones (Negative) mg/dL Urine Blood (Negative) Urine Nitrite (Negative) Urine Bilirubin (Negative) Urine Urobilinogen (Normal) mg/dL Ur Leukocyte Esterase (Negative) Urine Microscopic RBC (0-3) per hpf Urine Microscopic WBC (0-3) per hpf Ur Squamous Epith Cells (None-Few) per lpf Urine Bacteria (None-Few) per hpf Hyaline Casts (None-Few) per lpf Urine Test (Negative) Critical Care Time Critical Care Time: Yes Total Critical Care Time: 30 Attestation: Patient required IV insulin and IV fluids. She does not meet criteria for diabetic ketoacidosis but is more of a hyperosmolar nonketotic picture Attestation Statement - Attestation Attestation: I examined this patient and my medical decision-making was reviewed with the Resident Physician. I agree with the documented findings, disposition and treatment plan as described except to the extent set forth below. [id number] time provided Patient complains of hyperglycemia. She has a subcutaneous insulin pump. Her mucous membranes appear dry on exam. She is tachycardic. Concern for diabetic ketoacidosis.
[2017-07-10 22:18] LABS: Bilirubin,Urine Negative (Negative); Blood,Urine Trace (Negative); Clarity,Urine Clear (Clear); Color,Urine Yellow (Yellow); Glucose,Urine (UA) >=1000 mg/dL (Normal); Ketones,Urine Trace mg/dL (Negative); Leukocyte Esterase,Urine Negative (Negative); Nitrite,Urine Negative (Negative); Protein,Urine Negative (Neg-Trace); Specific Gravity,Urine 1.025 (1.010-1.025); Urobilinogen,Urine Normal (Normal)
[2017-07-10 22:20] LABS: Bacteria,Urine None Seen per hpf (None-Few); Hyaline Casts,Urine None Seen per lpf (None-Few); RBC,Urine 0-3 per hpf (0-3); Squamous Epithelial Cell,Urine Many per lpf (None-Few); WBC,Urine 0-3 per hpf (0-3)
[2017-07-10 22:24] LABS: Basophils % 0.7 %; Eosinophils # 0.1 K/mcL (0.0-0.6); Eosinophils % 1.5 %; Hematocrit 39.1 % (35.3-44.9); Hemoglobin 13.3 g/dL (11.5-15.4); Immature Granulocytes % 0.2 % (0-4); Mean Corpuscular Hemoglobin 30.4 pg (28.0-33.3); Mean Corpuscular Volume 89.3 fL (83.0-100.0); Mean Platelet Volume 10.1 fL (9.4-12.4); Monocytes # 0.2 K/mcL (0.0-1.3); Monocytes % 2.6 %; Neutrophils # 4.9 K/mcL (1.6-8.9); Platelet Count 187 K/mcL (140-400); Red Blood Count 4.38 M/mcL (3.82-4.97); Red Cell Distribution Width 12.5 % (11.5-14.5)
[2017-07-10 22:31] LABS: VBG HCO3 25 mEq/L (21-27); VBG PCO2 51 mmHg (41-51); VBG PH 7.29 pH Units (7.32-7.42); VBG PO2 51 mmHg (25-50)
[2017-07-10 22:37] LABS: Alanine Aminotransferase 36 Units/L (0-55); Albumin 4.2 g/dL (3.5-5.0); Alkaline Phosphatase 201 Units/L (38-126); Aspartate Amino Transferase 27 Units/L (5-34); BUN/Creatinine Ratio 13 (6-26); Beta-Hydroxybutyric Acid 0.85 mmol/L (0.02-0.27); Blood Urea Nitrogen 21 mg/dL (7-20); Carbon Dioxide 20 mEq/L (19-29); Chloride 91 mEq/L (98-109); Globulin 4.2 g/dL (2.4-3.5); Total Protein 8.4 g/dL (6.0-8.3); eGFR For African Americans 42 (> 60); eGFR For Non-African Americans 35 (> 60)
[2017-07-10 22:38] LABS: Bilirubin,Total 1.2 mg/dL (0.2-1.2); Lipase < 10 Units/L (8-78); Potassium 4.7 mEq/L (3.5-4.5); Sodium 126 mEq/L (136-145)
[2017-07-10 22:39] LABS: Osmolality,Calculated 312 (280-300)
[2017-07-10 22:40] LABS: Glucose 940 mg/dL (70-99)
[2017-07-10] MEDS: Ondansetron 4 MG/2 ML VIAL IVP ONE ×2 (22:55→22:58)
[2017-07-10] MEDS ORDERED: Promethazine 12.5 MG in 0.9 % Sodium Chloride 50 ML IVPB ONE (22:59)
[2017-07-10] MEDS ORDERED: *HR* HYDROmorphone (PF) 1 MG/ML SYRINGE IVP ONE ×2 (22:59→23:59)
[2017-07-10] MEDS ORDERED: *HR* Dextrose 50 % in Water (Syg) 50 ML SYRINGE IVP PRN (23:07)
--- NOTE | 2017-07-10 23:57 | Emergency Department Note ---
Disposition Clinical Impression: DKA (diabetic ketoacidoses) Qualifiers: Diabetes mellitus type: type 1 Diabetes mellitus complication detail: without coma Qualified Code(s): E10.10 - Type 1 diabetes mellitus with ketoacidosis without coma Disposition: Admitted As Inpatient Condition: Fair Time of Disposition: 00:02 General Adult HPI - General Chief complaint: ED Nausea/Vomiting/Diarrhea Stated complaint: Hyperglycemic Time Seen by Provider: 07/10/17 21:50 Source: patient Mode of arrival: ambulatory Limitations: no limitations Nursing Notes Reviewed: Yes Vital Signs Reviewed: Yes - History of Present Illness HPI Narrative: Patient is a 36-year-old female who presents to [facility] ED with a chief complaint of blood sugars reading high. Patient has had several days of nausea with vomiting. Admits to some abdominal pain, chest pains with vomiting, some difficulty breathing at times. Admits to a tactile fever at home. No problems with urination or bowel movements. States she has had decreased appetite for the last several days. Patient is a type I diabetic on an insulin pump. Onset (ago): day(s) Location: chest, abdomen Radiation: non-radiation Pain Severity: moderate Pain Scale: 7 Quality: aching Consistency: intermittent Improves with: nothing Worsens with: nothing Associated symptoms: Reports: chest pain, fever/chills, loss of appetite, nausea /vomiting, shortness of breath Treatments Prior to Arrival: none - Related Data Home Medications Medication Instructions Recorded Confirmed Insulin ASPART [NovoLOG] 0 unit .ROUTE AD 04/17/15 05/07/17 Labetalol [Trandate] 100 mg PO BID 04/17/15 05/07/17 Lisinopril [Zestril] 10 mg PO DAILY 04/17/15 05/07/17 Albuterol Sulfate [Albuterol 1 - 2 puff IH Q4HR PRN 06/19/15 05/07/17 Inhaler] Gabapentin [Neurontin] 800 mg PO TID 06/19/15 05/07/17 LORazepam [Ativan] 1 mg PO TID 06/19/15 05/07/17 Estradiol 2 mg PO DAILY 08/03/16 05/07/17 Esomeprazole Magnesium [Nexium] 40 mg PO BID 08/23/16 05/07/17 Rosuvastatin Calcium [Crestor] 10 mg PO DAILY 05/07/17 05/07/17 Previous Rx's Medication Instructions Recorded Orphenadrine [Norflex] 100 mg PO BID #14 tablet.er 12/08/15 Oxycodone HCl/Acetaminophen 1 - 2 each PO Q6H PRN #16 tablet 06/07/17 [Percocet 5-325 mg Tablet] Promethazine [Phenergan] 25 mg PO Q6HR PRN #16 tablet 06/07/17 Diclofenac Sodium [Voltaren] 1 appl TP QID #100 gm 07/07/17 Lidocaine Patch [Lidoderm 5% patch] 1 each TP DAILY #6 adh..patch 07/07/17 Allergies Allergy/AdvReac Type Severity Reaction Status Date / Time Cortisone Allergy Anaphylaxis Verified 07/10/17 21:41 ketorolac [From Toradol] Allergy Anaphylaxis Verified 07/10/17 21:41 latex Allergy Hives Verified 07/10/17 21:41 metoclopramide [From Reglan] Allergy Anaphylaxis Verified 07/10/17 21:41 morphine Allergy Anaphylaxis Verified 07/10/17 21:41 tramadol [From Ultram] AdvReac Nausea Verified 07/10/17 21:41 Zolpidem [From Ambien] AdvReac Insomnia Verified 07/10/17 21:41 All systems ED: reviewed and negative except as stated. Past Medical History - Past Medical History Attestation: Yes The following information was validated with the patient. 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 EYES: EOMI, no scleral icterus. NOSE: The nose is normal in appearance without rhinorrhea RESP: Normal chest excursion with respiration; breath sounds clear and equal bilaterally; no wheezes, rhonchi, or rales CARD: Regular rhythm, without murmurs, rub or gallop ABD: Non-distended; mildly tender epigastric, soft,without rigidity, rebound or guarding SKIN: Normal for age and race; warm and dry; no apparent lesions - General General appearance: alert Course Course Narrative: Patient seen and examined. History of type 1 diabetes with prior episodes of DKA. Has had nausea and vomiting for the last several days as well as some abdominal and chest pain. DKA workup initiated. Will initiate fluid bolus and likely start insulin drip. - Reevaluation(s) Reevaluation #1: There was a delay in getting a line due to patient's poor veins. The decision was made to place a central line in the right IJ due to poor venous access. Patient's lab work shows elevated glucose in the 900s. She does have elevated serum ketones. Minimally acidotic with minimal anion gap of 15. Also new acute kidney injury. Spoke with hospitalist Dr. Morin who has accepted patient for admission. Time: 00:01 Vital Signs Temperature 97.6 F 07/10/17 21:41 Pulse Rate 105 07/10/17 21:41 Respiratory Rate 16 07/10/17 21:41 Blood Pressure 179/99 07/10/17 21:41 O2 Sat by Pulse Oximetry 97 07/10/17 21:41 Temperature 97.6 F 07/10/17 21:41 Pulse Rate 105 07/10/17 21:41 Respiratory Rate 16 07/10/17 21:41 Blood Pressure 179/99 07/10/17 21:41 O2 Sat by Pulse Oximetry 97 07/10/17 21:41 Oxygen Delivery Oxygen Delivery Room Air Medical Decision Making - Medical Records Medical records reviewed: Yes I reviewed the patient's medical records. - Lab Data Lab results reviewed: Yes I reviewed the patient's lab results. Result diagrams: 07/10/17 22:17 07/10/17 22:17 Lab Results 07/10/17 07/10/17 07/10/17 Range/Units 21:43 21:44 22:07 WBC (4.3-11.1) K/mcL RBC (3.82-4.97) M/mcL Hgb (11.5-15.4) g/dL Hct (35.3-44.9) % MCV (83.0-100.0) fL MCH (28.0-33.3) pg MCHC (31.6-35.5) g/dL RDW (11.5-14.5) % Plt Count (140-400) K/mcL MPV (9.4-12.4) fL Immature Gran % (0-4) % Seg Neutrophils % % Lymphocytes % % Monocytes % % Eosinophils % % Basophils % % Neutrophils # (1.6-8.9) K/mcL Lymphocytes # (0.6-4.6) K/mcL Monocytes # (0.0-1.3) K/mcL Eosinophils # (0.0-0.6) K/mcL Basophils # (0.0-0.2) K/mcL VBG pH (7.32-7.42) pH Units VBG pCO2 (41-51) mmHg VBG pO2 (25-50) mmHg VBG HCO3 (21-27) mEq/L Sodium (136-145) mEq/L Potassium (3.5-4.5) mEq/L Chloride (98-109) mEq/L Carbon Dioxide (19-29) mEq/L BUN (7-20) mg/dL Creatinine (0.57-1.11) mg/dL Est GFR ( Amer) (> 60) Est GFR (Non-Af Amer) (> 60) BUN/Creatinine Ratio (6-26) Glucose (70-99) mg/dL POC Glucose > 600 H* > 600 H* (58-89) Calculated Osmolality (280-300) Calcium (8.6-10.8) mg/dL Total Bilirubin (0.2-1.2) mg/dL AST (5-34) Units/L ALT (0-55) Units/L Alkaline Phosphatase (38-126) Units/L Serum Total Protein (6.0-8.3) g/dL Albumin (3.5-5.0) g/dL Globulin (2.4-3.5) g/dL Albumin/Globulin Ratio (1.1-2.2) Lipase (8-78) Units/L Beta-Hydroxybutyric Acd (0.02-0.27) mmol/L Urine Color Yellow (Yellow) Urine Clarity Clear (Clear) Urine pH 7.0 (5.0-8.0) pH Units Ur Specific [place] 1.025 (1.010-1.025) Urine Protein Negative (Neg-Trace) mg/dL Urine Glucose (UA) >=1000 H (Normal) mg/dL Urine Ketones Trace H (Negative) mg/dL Urine Blood Trace H (Negative) Urine Nitrite Negative (Negative) Urine Bilirubin Negative (Negative) Urine Urobilinogen Normal (Normal) mg/dL Ur Leukocyte Esterase Negative (Negative) Urine Microscopic RBC 0-3 (0-3) per hpf Urine Microscopic WBC 0-3 (0-3) per hpf Ur Squamous Epith Cells Many H (None-Few) per lpf Urine Bacteria None Seen (None-Few) per hpf Hyaline Casts None Seen (None-Few) per lpf Urine Test (Negative) 07/10/17 07/10/17 07/10/17 Range/Units 22:07 22:17 22:17 WBC 6.1 (4.3-11.1) K/mcL RBC 4.38 (3.82-4.97) M/mcL Hgb 13.3 (11.5-15.4) g/dL Hct 39.1 (35.3-44.9) % MCV 89.3 (83.0-100.0) fL MCH 30.4 (28.0-33.3) pg MCHC 34.0 (31.6-35.5) g/dL RDW 12.5 (11.5-14.5) % Plt Count 187 (140-400) K/mcL MPV 10.1 (9.4-12.4) fL Immature Gran % 0.2 (0-4) % Seg Neutrophils % 79.0 % Lymphocytes % 16.0 % Monocytes % 2.6 % Eosinophils % 1.5 % Basophils % 0.7 % Neutrophils # 4.9 (1.6-8.9) K/mcL Lymphocytes # 1.0 (0.6-4.6) K/mcL Monocytes # 0.2 (0.0-1.3) K/mcL Eosinophils # 0.1 (0.0-0.6) K/mcL Basophils # 0.0 (0.0-0.2) K/mcL VBG pH (7.32-7.42) pH Units VBG pCO2 (41-51) mmHg VBG pO2 (25-50) mmHg VBG HCO3 (21-27) mEq/L Sodium 126 L (136-145) mEq/L Potassium 4.7 H (3.5-4.5) mEq/L Chloride 91 L (98-109) mEq/L Carbon Dioxide 20 (19-29) mEq/L BUN 21 H (7-20) mg/dL Creatinine 1.68 H (0.57-1.11) mg/dL Est GFR ( Amer) 42 L (> 60) Est GFR (Non-Af Amer) 35 L (> 60) BUN/Creatinine Ratio 13 (6-26) Glucose 940 H* (70-99) mg/dL POC Glucose (58-89) Calculated Osmolality 312 H (280-300) Calcium 10.0 (8.6-10.8) mg/dL Total Bilirubin 1.2 (0.2-1.2) mg/dL AST 27 (5-34) Units/L ALT 36 (0-55) Units/L Alkaline Phosphatase 201 H (38-126) Units/L Serum Total Protein 8.4 H (6.0-8.3) g/dL Albumin 4.2 (3.5-5.0) g/dL Globulin 4.2 H (2.4-3.5) g/dL Albumin/Globulin Ratio 1.0 L (1.1-2.2) Lipase < 10 (8-78) Units/L Beta-Hydroxybutyric Acd 0.85 H (0.02-0.27) mmol/L Urine Color (Yellow) Urine Clarity (Clear) Urine pH (5.0-8.0) pH Units Ur Specific [place] (1.010-1.025) Urine Protein (Neg-Trace) mg/dL Urine Glucose (UA) (Normal) mg/dL Urine Ketones (Negative) mg/dL Urine Blood (Negative) Urine Nitrite (Negative) Urine Bilirubin (Negative) Urine Urobilinogen (Normal) mg/dL Ur Leukocyte Esterase (Negative) Urine Microscopic RBC (0-3) per hpf Urine Microscopic WBC (0-3) per hpf Ur Squamous Epith Cells (None-Few) per lpf Urine Bacteria (None-Few) per hpf Hyaline Casts (None-Few) per lpf Urine Test Negative (Negative) 07/10/17 Range/Units 22:27 WBC (4.3-11.1) K/mcL RBC (3.82-4.97) M/mcL Hgb (11.5-15.4) g/dL Hct (35.3-44.9) % MCV (83.0-100.0) fL MCH (28.0-33.3) pg MCHC (31.6-35.5) g/dL RDW (11.5-14.5) % Plt Count (140-400) K/mcL MPV (9.4-12.4) fL Immature Gran % (0-4) % Seg Neutrophils % % Lymphocytes % % Monocytes % % Eosinophils % % Basophils % % Neutrophils # (1.6-8.9) K/mcL Lymphocytes # (0.6-4.6) K/mcL Monocytes # (0.0-1.3) K/mcL Eosinophils # (0.0-0.6) K/mcL Basophils # (0.0-0.2) K/mcL VBG pH 7.29 L (7.32-7.42) pH Units VBG pCO2 51 (41-51) mmHg VBG pO2 51 H (25-50) mmHg VBG HCO3 25 (21-27) mEq/L Sodium (136-145) mEq/L Potassium (3.5-4.5) mEq/L Chloride (98-109) mEq/L Carbon Dioxide (19-29) mEq/L BUN (7-20) mg/dL Creatinine (0.57-1.11) mg/dL Est GFR ( Amer) (> 60) Est GFR (Non-Af Amer) (> 60) BUN/Creatinine Ratio (6-26) Glucose (70-99) mg/dL POC Glucose (58-89) Calculated Osmolality (280-300) Calcium (8.6-10.8) mg/dL Total Bilirubin (0.2-1.2) mg/dL AST (5-34) Units/L ALT (0-55) Units/L Alkaline Phosphatase (38-126) Units/L Serum Total Protein (6.0-8.3) g/dL Albumin (3.5-5.0) g/dL Globulin (2.4-3.5) g/dL Albumin/Globulin Ratio (1.1-2.2) Lipase (8-78) Units/L Beta-Hydroxybutyric Acd (0.02-0.27) mmol/L Urine Color (Yellow) Urine Clarity (Clear) Urine pH (5.0-8.0) pH Units Ur Specific [place] (1.010-1.025) Urine Protein (Neg-Trace) mg/dL Urine Glucose (UA) (Normal) mg/dL Urine Ketones (Negative) mg/dL Urine Blood (Negative) Urine Nitrite (Negative) Urine Bilirubin (Negative) Urine Urobilinogen (Normal) mg/dL Ur Leukocyte Esterase (Negative) Urine Microscopic RBC (0-3) per hpf Urine Microscopic WBC (0-3) per hpf Ur Squamous Epith Cells (None-Few) per lpf Urine Bacteria (None-Few) per hpf Hyaline Casts (None-Few) per lpf Urine Test (Negative) - Radiology Data Radiology results reviewed: Yes I reviewed the patient's radiology results. Chest X-Ray 07/10/17 22:19 IMPRESSION: 1. No acute cardiopulmonary disease. D/ / Jamil Brooks MD / Jamil Brooks MD Interpreting Provider: Jamil Brooks MD - EKG Data EKG #1 EKG attestation: Yes I reviewed and interpreted this EKG. EKG results narrative: EKG done at 2159 shows sinus tachycardia with a rate of 103 beats per minute. No acute ST elevation or depression. Normal axis.
[2017-07-11] MEDS: Insulin Human Regular 100 UNIT in 0.9 % Sodium Chloride 100 ML IVC SCH ×2 (00:17→23:36)
[2017-07-11] MEDS ORDERED: 0.9 % Sodium Chloride 1,000 ML IVC ONE ×2 (01:02→01:03)
[2017-07-11] MEDS ORDERED: Metoclopramide 10 MG/2 ML VIAL IVP PRN (01:07)
--- NOTE | 2017-07-11 01:12 | Internal Med History&Physical ---
Date of Encounter: 07/11/17 Time of Encounter: 01:10 Assessment and Plan (1) Type 2 diabetes mellitus with hyperosmolar nonketotic hyperglycemia Current visit: Yes Status: Acute Will give the patient 3 L fluid bolus. Continue normal saline 150 ml/h. Start insulin drip. Plan to decrease the sugar no faster than 75 g/dL per hour. We will check BMP, venous blood gas, ketones every 4 hours times 4. check A1C. no obvious infectious source (2) Acute kidney injury Current visit: No Status: Acute Aggressive hydration (3) Nausea & vomiting Current visit: No Status: Acute Due to gastroparesis. We will give Reglan as needed. Keep NPO for now. IV protonix Qualifiers: Vomiting type: unspecified Vomiting Intractability: non-intractable Qualified Code(s): R11.2 - Nausea with vomiting, unspecified Internal Medicine - H&P: HPI Chief complaint: high sugars History of present illness: Ms. Gaming is a 36 year old female with history of type I diabetes mellitus using an insulin pump presents to the emergency room today after her sugars were high all day. Patient has checked her sugar since the morning several times and was reading high. Patient mentioned that she has been having nausea and vomiting, unable to keep any food down for the past 3 days. She mentioned that she has history of gastroparesis. She denies any hematemesis melena or hematochezia. Patient has some epigastric discomfort. She denies any productive cough shortness of breath. No diarrhea. Patient has been using insulin pump for diabetes control. Past Med Surg Social Fam HX - Past Medical History Medical history: asthma, diabetes, GERD, hypertension, other Psychiatric history: anxiety, depression, panic disorder - Past Surgical History Surgical History: appendectomy, cholecystectomy, hysterectomy, knee replacement , other - Social History Smoking Status: Light tobacco smoker Smokeless Tobacco Status: No Alcohol use: none Drug use: none - Family History Mother Living Status: Still Living Hx Family Cardiac Disorders: Yes (HTN) Father Living Status: Still Living Hx Family Cardiac Disorders: Yes (HTN) Hx Family Respiratory Disorders: Yes Internal Medicine - H&P: Meds Insulin ASPART [NovoLOG] 0 unit .ROUTE AD 04/17/15 [History] Labetalol [Trandate] 100 mg PO BID 04/17/15 [History] Lisinopril [Zestril] 10 mg PO DAILY 04/17/15 [History] Albuterol Sulfate [Albuterol Inhaler] 1 - 2 puff IH Q4HR PRN 06/19/15 [History] Gabapentin [Neurontin] 800 mg PO TID 06/19/15 [History] LORazepam [Ativan] 1 mg PO TID 06/19/15 [History] Orphenadrine [Norflex] 100 mg PO BID #14 tablet.er 12/08/15 [Rx] Estradiol 2 mg PO DAILY 08/03/16 [History] Esomeprazole Magnesium [Nexium] 40 mg PO BID 08/23/16 [History] Rosuvastatin Calcium [Crestor] 10 mg PO DAILY 05/07/17 [History] Oxycodone HCl/Acetaminophen [Percocet 5-325 mg Tablet] 1 - 2 each PO Q6H PRN # 16 tablet 06/07/17 [Rx] Promethazine [Phenergan] 25 mg PO Q6HR PRN #16 tablet 06/07/17 [Rx] Diclofenac Sodium [Voltaren] 1 appl TP QID #100 gm 07/07/17 [Rx] Lidocaine Patch [Lidoderm 5% patch] 1 each TP DAILY #6 adh..patch 07/07/17 [Rx] 3 Allergy/AdvReac Type Severity Reaction Status Date / Time Cortisone Allergy Anaphylaxis Verified 07/10/17 21:41 ketorolac [From Toradol] Allergy Anaphylaxis Verified 07/10/17 21:41 latex Allergy Hives Verified 07/10/17 21:41 metoclopramide [From Reglan] Allergy Anaphylaxis Verified 07/10/17 21:41 morphine Allergy Anaphylaxis Verified 07/10/17 21:41 tramadol [From Ultram] AdvReac Nausea Verified 07/10/17 21:41 Zolpidem [From Ambien] AdvReac Insomnia Verified 07/10/17 21:41 All Systems PM: A 10-system review of systems was performed and is negative for pertinent findings except as documented above in the HPI. Review of systems: 10 point review of systems is negative except for HPI - Constitutional Vitals: Temp Pulse Resp BP Pulse Ox 98.3 F 90 18 143/84 97 07/11/17 00:47 07/11/17 00:47 07/11/17 00:47 07/11/17 00:47 07/11/17 00:47 Exam: Gen.: patient is alert oriented times 3 cardiac: normal S1 S2 no additional sounds or murmurs chest: no active wheezing or bronchial breathing abdomen epigastric tenderness lower extremity no swelling. Neuro: no new focal deficits Internal Med - H&P Results - Labs CBC & Chem 7: 07/10/17 22:17 07/10/17 22:17 - Impressions ITS Impressions Chest X-Ray 07/10/17 23:48 IMPRESSION: 1. Right internal jugular vein catheter tip is located at the SVC/right atrial junction. No pneumothorax. 2. No acute cardiopulmonary disease. D/ / Jamil Brooks MD / Jamil Brooks MD Interpreting Provider: Jamil Brooks MD
[2017-07-11 01:30] LABS: Calcium 9.1 mg/dL (8.6-10.8); Potassium 4.1 mEq/L (3.5-4.5)
[2017-07-11 01:39] LABS: Beta-Hydroxybutyric Acid 1.58 mmol/L (0.02-0.27)
[2017-07-11 01:46] LABS: Hemoglobin A1C 7.1 %
[2017-07-11] MEDS: *HR* HYDROmorphone (PF) 1 MG/ML SYRINGE IVP PRN ×5 (02:50→20:06)
[2017-07-11] MEDS: 0.9 % Sodium Chloride 1,000 ML IVC SCH ×3 (04:33→17:49)
[2017-07-11] MEDS: Pantoprazole 40 MG VIAL IVP SCH ×2 (05:13→17:50)
[2017-07-11] MEDS: Ondansetron 4 MG/2 ML VIAL IVP PRN ×4 (05:13→20:07)
[2017-07-11] MEDS: *HR* Heparin 5,000 UNIT/ML VIAL SQ SCH ×2 (05:13→17:49)
[2017-07-11 05:53] LABS: Beta-Hydroxybutyric Acid 0.37 mmol/L (0.02-0.27)
[2017-07-11 06:03] LABS: BUN/Creatinine Ratio 18 (6-26); Blood Urea Nitrogen 17 mg/dL (7-20); Calcium 7.9 mg/dL (8.6-10.8); Carbon Dioxide 22 mEq/L (19-29); Chloride 106 mEq/L (98-109); Glucose 410 mg/dL (70-99); Osmolality,Calculated 299 (280-300); Potassium 4.1 mEq/L (3.5-4.5); Sodium 135 mEq/L (136-145); eGFR For African Americans > 60 (> 60); eGFR For Non-African Americans > 60 (> 60)
[2017-07-11] MEDS ORDERED: *HR* LORazepam 2 MG/ML VIAL IVP PRN (06:15)
--- NOTE | 2017-07-11 10:13 | Internal Med Progress Note ---
Date of Encounter: 07/11/17 Time of Encounter: 10:13 - Assessment and plan (1) DVT prophylaxis Current Visit: Yes Status: Acute Assessment and plan: Encourage ambulation. She does not require pharmacological prophylaxis due to being fully ambulatory. (2) Acute kidney injury Current Visit: No Status: Acute Assessment and plan: Likely secondary to dehydration due to osmotic diuresis. Continue with IV fluids. Monitor serum creatinine. Avoid nephrotoxins. (3) Gastroparesis due to DM Current Visit: No Status: Chronic Assessment and plan: We will treat the cause and provide symptomatic control with Zofran and Phenergan and IV Dilaudid. Check hemoglobin A1c. (4) Type 2 diabetes mellitus with hyperosmolar nonketotic hyperglycemia Current Visit: Yes Status: Acute Assessment and plan: On insulin drip with blood glucose fingerstick checks every 1 hour. We will check an replete electrolytes daily. - Subjective Interval history: Patient presented to the hospital due to elevated blood glucose that she could not control at home. She was found to have uncontrolled diabetes. Blood glucose was greater than 900. She also reports severe nausea and vomiting with upper abdominal pain which she describes as crampy. She has been having similar symptoms related to gastroparesis. Denies fevers chills chest pain and dysuria. - Constitutional Vitals: Temp Pulse Resp BP Pulse Ox 98.4 F 75 16 136/76 97 07/11/17 07:14 07/11/17 07:14 07/11/17 07:14 07/11/17 07:14 07/11/17 07:14 General appearance: Present: mild distress, A&O X 3 - Respiratory Respiratory exam: Present: CTAB. Absent: accessory muscle use, rales, rhonchi, wheezes - Cardiovascular Cardiovascular exam: Present: RRR, +S1, +S2. Absent: diastolic murmur, gallop, rubs, systolic murmur - GI/Abdominal GI/Abdominal exam: Present: normal bowel sounds, soft, tenderness, no peritoneal signs. Absent: distended - Extremities Exam Extremities exam: Present: warm, radial pulses palpable and symmetrical. Absent : calf tenderness, cyanotic, pedal edema - Skin Skin exam: Present: dry, intact Internal Medicine: Result - Labs CBC & Chem 7: 07/10/17 22:17 07/11/17 05:35 Labs: BMP 07/11/17 05:35 Sodium 135 L Potassium 4.1 Chloride 106 Carbon Dioxide 22 BUN 17 Creatinine 0.94 Glucose 410 H Calcium 7.9 L Consult Discharge Plan - Plan Referrals: Domingo Humphrey DO [Primary Care Provider] -
[2017-07-11] MEDS: *HR* LORazepam 2 MG/ML VIAL IVP SCH ×3 (11:44→20:07)
[2017-07-11] MEDS: *HR* Promethazine 25 MG/ML VIAL IVP PRN ×3 (11:45→20:07)
[2017-07-11] MEDS: VOLTAREN TP SCH ×3 (15:14→21:28)
--- NOTE | 2017-07-11 18:10 | Electrocardiograph Report ---
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
[2017-07-11 19:38] LABS: BUN/Creatinine Ratio 16 (6-26); Blood Urea Nitrogen 13 mg/dL (7-20); Calcium 8.9 mg/dL (8.6-10.8); Carbon Dioxide 23 mEq/L (19-29); Chloride 110 mEq/L (98-109); Glucose 117 mg/dL (70-99); Osmolality,Calculated 287 (280-300); Potassium 3.7 mEq/L (3.5-4.5); Sodium 138 mEq/L (136-145); eGFR For African Americans > 60 (> 60); eGFR For Non-African Americans > 60 (> 60)
[2017-07-12] MEDS: *HR* HYDROmorphone (PF) 1 MG/ML SYRINGE IVP PRN ×4 (00:30→12:29)
[2017-07-12] MEDS: *HR* Promethazine 25 MG/ML VIAL IVP PRN ×4 (00:30→12:29)
[2017-07-12] MEDS: *HR* LORazepam 2 MG/ML VIAL IVP SCH ×4 (00:31→12:29)
[2017-07-12] MEDS: Ondansetron 4 MG/2 ML VIAL IVP PRN ×4 (00:31→12:28)
[2017-07-12 04:06] LABS: Basophils % 0.6 %; Eosinophils # 0.2 K/mcL (0.0-0.6); Eosinophils % 4.3 %; Hematocrit 30.7 % (35.3-44.9); Hemoglobin 10.6 g/dL (11.5-15.4); Lymphocytes # 2.3 K/mcL (0.6-4.6); Lymphocytes % 42.1 %; Mean Corpuscular HGB Conc 34.5 g/dL (31.6-35.5); Mean Corpuscular Hemoglobin 30.8 pg (28.0-33.3); Mean Corpuscular Volume 89.2 fL (83.0-100.0); Mean Platelet Volume 10.2 fL (9.4-12.4); Monocytes # 0.2 K/mcL (0.0-1.3); Monocytes % 4.5 %; Neutrophils # 2.6 K/mcL (1.6-8.9); Platelet Count 165 K/mcL (140-400); Red Blood Count 3.44 M/mcL (3.82-4.97); Red Cell Distribution Width 13.1 % (11.5-14.5); Segmented Neutrophils % 48.5 %
[2017-07-12 04:15] LABS: VBG HCO3 26 mEq/L (21-27); VBG PCO2 57 mmHg (41-51); VBG PH 7.27 pH Units (7.32-7.42); VBG PO2 111 mmHg (25-50)
[2017-07-12 04:18] LABS: BUN/Creatinine Ratio 14 (6-26); Blood Urea Nitrogen 13 mg/dL (7-20); Calcium 8.1 mg/dL (8.6-10.8); Carbon Dioxide 23 mEq/L (19-29); Chloride 107 mEq/L (98-109); Glucose 375 mg/dL (70-99); Magnesium 1.5 mg/dL (1.6-2.6); Osmolality,Calculated 295 (280-300); Potassium 4.4 mEq/L (3.5-4.5); Sodium 135 mEq/L (136-145); eGFR For African Americans > 60 (> 60); eGFR For Non-African Americans > 60 (> 60)
[2017-07-12] MEDS: Pantoprazole 40 MG VIAL IVP SCH (04:44)
[2017-07-12] MEDS: *HR* Heparin 5,000 UNIT/ML VIAL SQ SCH (04:45)
[2017-07-12] MEDS: D5% in 0.9% NACL 1,000 ML IVC SCH ×2 (06:39→06:40)
[2017-07-12] MEDS: VOLTAREN TP SCH ×2 (08:39→12:30)
[2017-07-12] MEDS ORDERED: Dextrose Gel 15 GM PO PRN ×2 (09:11)
[2017-07-12] MEDS ORDERED: *HR* Dextrose 50 % in Water (Syg) 50 ML SYRINGE IVP PRN (09:11)
[2017-07-12] MEDS ORDERED: D5% in Water 1,000 ML IVC PRN (09:11)
[2017-07-12] MEDS ORDERED: Insulin DETEMIR 100 UNIT/ML X5UNITS SQ SCH (09:15)
[2017-07-12] MEDS ORDERED: Ipratropium/Albuterol Neb 3 ML IH PRN (09:16)
--- NOTE | 2017-07-12 09:25 | Internal Med Progress Note ---
Date of Encounter: 07/12/17 Time of Encounter: 09:20 - Assessment and plan (1) Diabetes mellitus type 1 with complications Current Visit: No Status: Chronic Assessment and plan: Uses insulin pump at home currently on insulin drip; FSBG in low 200s, and as such, will DC insulin drip and will instate basal insulin 10U Levemir BID as well as SSI high-dose regimen continue to assess blood sugars TID/AC/HS starting patient on diabetic diet regard have counseled patient on avoiding high glycemic index foods and drinks (2) DKA (diabetic ketoacidoses) Current Visit: Yes Status: Acute Assessment and plan: A.m. the BG still demonstrates acidosis; will plan to reject this afternoon as well as monitor in the a.m. will check BMP in the a.m. as well correct any lyte abnormalities as needed continue IV fluids and maintenance rate Qualifiers: Diabetes mellitus type: type 1 Diabetes mellitus complication detail: without coma Qualified Code(s): E10.10 - Type 1 diabetes mellitus with ketoacidosis without coma (3) Gastroparesis due to DM Current Visit: No Status: Chronic Assessment and plan: Patient states feels less abdominal discomfort this a.m.; baseline nausea without any vomiting this a.m. will advance diet gently; enrollment counselor patient and will attempt full diet with stipulation the patient advanced slowly Continue to control with Zofran, Phenergan, and IV Dilaudid. A1c was 7.1 (4) DVT prophylaxis Current Visit: Yes Status: Acute Assessment and plan: Continue to encourage ambulation - Time Spent With Patient less than 15 minutes - Subjective Interval history: Subjectively stable. Leading up to current admission, patient does state that she has had worsened nausea/vomiting, cough, shortness of breath, and subjective fever. Patient continues to have some mild epigastric discomfort that she states is chronic and generally present. Patient does have some mild nausea which is also chronic, but denies any vomiting this morning. Patient does complain about multifocal pain that is also chronic stating she does not normally take medications for these pains, but has had benefit in the past from use of Dilaudid; requests enhancement of current pain regimen, which does include Q4H PRN Dilaudid. - Constitutional Vitals: Temp Pulse Resp BP Pulse Ox 98.1 F 70 17 132/81 98 07/12/17 06:39 07/12/17 06:39 07/12/17 06:39 07/12/17 06:39 07/12/17 06:39 General appearance: Present: A&O X 3, no acute distress, answers questions appropriately - Head Head exam: Present: atraumatic, normocephalic - Eye Eye exam: Present: normal appearance, PERRL, conjuntiva pink, sclera anicteric. Absent: conjunctival injection - Neck Neck exam general surgery: Present: supple, trachea midline - Respiratory Respiratory exam: Present: CTAB, wheezes (faint expiratory). Absent: accessory muscle use, decreased breath sounds, prolonged expiratory phase, rales, respiratory distress, rhonchi - Cardiovascular Cardiovascular exam: Present: RRR, +S1, +S2. Absent: diastolic murmur, gallop, JVD, rubs, +S3, +S4, systolic murmur, tachycardia - GI/Abdominal GI/Abdominal exam: Present: guarding (Epigastric M), normal bowel sounds, soft, tenderness (Epigastric), no peritoneal signs. Absent: distended, firm, hernia, rebound, rigid - Extremities Exam Extremities exam: Present: warm, radial pulses palpable and symmetrical. Absent : calf tenderness, cyanotic, mottling, pedal edema - Neurological Exam Neurological exam: Present: CN II-XII intact, oriented X3, no focal deficits. Absent: facial droop, speech deficit - Skin Skin exam: Present: dry, intact, normal color. Absent: cyanosis, diaphoretic, mottled, pallor Additional comments: No lower extremity skin changes seen Internal Medicine: Result - Labs CBC & Chem 7: 07/12/17 03:30 07/12/17 03:30 Labs: Short CBC 07/12/17 Range/Units 03:30 WBC 5.4 (4.3-11.1) K/mcL Hgb 10.6 L D (11.5-15.4) g/dL Hct 30.7 L (35.3-44.9) % Plt Count 165 (140-400) K/mcL Neutrophils # 2.6 (1.6-8.9) K/mcL BMP 07/11/17 07/12/17 19:10 03:30 Sodium 138 135 L Potassium 3.7 4.4 Chloride 110 H 107 Carbon Dioxide 23 23 BUN 13 13 Creatinine 0.79 0.95 Glucose 117 H 375 H Calcium 8.9 8.1 L Laboratory Last Values WBC 5.4 K/mcL (4.3-11.1) 07/12/17 03:30 RBC 3.44 M/mcL (3.82-4.97) L 07/12/17 03:30 Hgb 10.6 g/dL (11.5-15.4) L D 07/12/17 03:30 Hct 30.7 % (35.3-44.9) L 07/12/17 03:30 MCV 89.2 fL (83.0-100.0) 07/12/17 03:30 MCH 30.8 pg (28.0-33.3) 07/12/17 03:30 MCHC 34.5 g/dL (31.6-35.5) 07/12/17 03:30 RDW 13.1 % (11.5-14.5) 07/12/17 03:30 Plt Count 165 K/mcL (140-400) 07/12/17 03:30 MPV 10.2 fL (9.4-12.4) 07/12/17 03:30 Immature Gran % 0.0 % (0-4) 07/12/17 03:30 Seg Neutrophils % 48.5 % 07/12/17 03:30 Lymphocytes % 42.1 % 07/12/17 03:30 Monocytes % 4.5 % 07/12/17 03:30 Eosinophils % 4.3 % 07/12/17 03:30 Basophils % 0.6 % 07/12/17 03:30 Neutrophils # 2.6 K/mcL (1.6-8.9) 07/12/17 03:30 Lymphocytes # 2.3 K/mcL (0.6-4.6) 07/12/17 03:30 Monocytes # 0.2 K/mcL (0.0-1.3) 07/12/17 03:30 Eosinophils # 0.2 K/mcL (0.0-0.6) 07/12/17 03:30 Basophils # 0.0 K/mcL (0.0-0.2) 07/12/17 03:30 VBG pH 7.27 pH Units (7.32-7.42) L 07/12/17 04:12 VBG pCO2 57 mmHg (41-51) H 07/12/17 04:12 VBG pO2 111 mmHg (25-50) H 07/12/17 04:12 VBG HCO3 26 mEq/L (21-27) 07/12/17 04:12 Sodium 135 mEq/L (136-145) L 07/12/17 03:30 Potassium 4.4 mEq/L (3.5-4.5) 07/12/17 03:30 Chloride 107 mEq/L (98-109) 07/12/17 03:30 Carbon Dioxide 23 mEq/L (19-29) 07/12/17 03:30 BUN 13 mg/dL (7-20) 07/12/17 03:30 Creatinine 0.95 mg/dL (0.57-1.11) 07/12/17 03:30 Est GFR ( Amer) > 60 (> 60) 07/12/17 03:30 Est GFR (Non-Af Amer) > 60 (> 60) 07/12/17 03:30 BUN/Creatinine Ratio 14 (6-26) 07/12/17 03:30 Glucose 375 mg/dL (70-99) H 07/12/17 03:30 POC Glucose 221 (58-89) H 07/12/17 05:40 Est Mean Plasma Glucose 157 mg/dl 07/10/17 22:17 Hemoglobin A1c 7.1 % (-5.6) H 07/10/17 22:17 Calculated Osmolality 295 (280-300) 07/12/17 03:30 Calcium 8.1 mg/dL (8.6-10.8) L 07/12/17 03:30 Magnesium 1.5 mg/dL (1.6-2.6) L 07/12/17 03:30 Total Bilirubin 1.2 mg/dL (0.2-1.2) 07/10/17 22:17 AST 27 Units/L (5-34) 07/10/17 22:17 ALT 36 Units/L (0-55) 07/10/17 22:17 Alkaline Phosphatase 201 Units/L (38-126) H 07/10/17 22:17 Serum Total Protein 8.4 g/dL (6.0-8.3) H 07/10/17 22:17 Albumin 4.2 g/dL (3.5-5.0) 07/10/17 22:17 Globulin 4.2 g/dL (2.4-3.5) H 07/10/17 22:17 Albumin/Globulin Ratio 1.0 (1.1-2.2) L 07/10/17 22:17 Lipase < 10 Units/L (8-78) 07/10/17 22:17 Beta-Hydroxybutyric Acd 0.19 mmol/L (0.02-0.27) 07/12/17 03:30 Urine Color Yellow (Yellow) 07/10/17 22:07 Urine Clarity Clear (Clear) 07/10/17 22:07 Urine pH 7.0 pH Units (5.0-8.0) 07/10/17 22:07 Ur Specific [place] 1.025 (1.010-1.025) 07/10/17 22:07 Urine Protein Negative mg/dL (Neg-Trace) 07/10/17 22:07 Urine Glucose (UA) >=1000 mg/dL (Normal) H 07/10/17 22:07 Urine Ketones Trace mg/dL (Negative) H 07/10/17 22:07 Urine Blood Trace (Negative) H 07/10/17 22:07 Urine Nitrite Negative (Negative) 07/10/17 22:07 Urine Bilirubin Negative (Negative) 07/10/17 22:07 Urine Urobilinogen Normal mg/dL (Normal) 07/10/17 22:07 Ur Leukocyte Esterase Negative (Negative) 07/10/17 22:07 Urine Microscopic RBC 0-3 per hpf (0-3) 07/10/17 22:07 Urine Microscopic WBC 0-3 per hpf (0-3) 07/10/17 22:07 Ur Squamous Epith Cells Many per lpf (None-Few) H 07/10/17 22:07 Urine Bacteria None Seen per hpf (None-Few) 07/10/17 22:07 Hyaline Casts None Seen per lpf (None-Few) 07/10/17 22:07 Urine Test Negative (Negative) 07/10/17 22:07 Consult Discharge Plan - Plan Referrals: Domingo Humphrey DO [Primary Care Provider] -
[2017-07-12 11:17] VITALS: BP 141/96
[2017-07-12] MEDS ORDERED: Insulin LISPRO 300 UNITS/3 ML VIAL SQ SCH ×2 (11:30→21:00)
[2017-07-12] MEDS ORDERED: *HR* OxyCODONE/APAP 5/325 TABLET PO ONE (14:49)
--- NOTE | 2017-07-12 14:57 | Discharge Summary ---
<Abraham Leija - Last Filed: 07/12/17 17:18> Date of Encounter: 07/12/17 Time of Encounter: 14:52 - Discharge Diagnosis (1) Diabetes mellitus type 1 with complications Priority: Primary Status: Chronic (2) DKA (diabetic ketoacidoses) Priority: Primary Status: Acute Qualifiers: Diabetes mellitus type: type 1 Diabetes mellitus complication detail: without coma Qualified Code(s): E10.10 - Type 1 diabetes mellitus with ketoacidosis without coma (3) Gastroparesis due to DM Priority: Secondary Status: Chronic - Discharge Medications Prescriptions: Oxycodone HCl/Acetaminophen [Percocet 5-325 mg Tablet] 1 each PO QID PRN 5 Days #20 tablet PRN Reason: Pain Home Medications: Insulin ASPART [NovoLOG] 85 unit .ROUTE AD 04/17/15 [History] Labetalol [Trandate] 100 mg PO BID 04/17/15 [History] Lisinopril [Zestril] 10 mg PO DAILY 04/17/15 [History] Albuterol Sulfate [Albuterol Inhaler] 1 - 2 puff IH Q4HR PRN 06/19/15 [History] LORazepam [Ativan] 2 mg PO TID 06/19/15 [History] Orphenadrine [Norflex] 100 mg PO BID #14 tablet.er 12/08/15 [Rx] Estradiol 2 mg PO DAILY 08/03/16 [History] Esomeprazole Magnesium [Nexium] 40 mg PO BID 08/23/16 [History] Rosuvastatin Calcium [Crestor] 10 mg PO DAILY 05/07/17 [History] Promethazine [Phenergan] 25 mg PO Q6HR PRN #16 tablet 06/07/17 [Rx] Diclofenac Sodium [Voltaren] 1 appl TP QID #100 gm 07/07/17 [Rx] Lidocaine Patch [Lidoderm 5% patch] 1 each TP DAILY #6 adh..patch 07/07/17 [Rx] FLUoxetine HCl [Fluoxetine HCl] 40 mg PO Q48H 07/11/17 [History] FLUoxetine HCl [Fluoxetine HCl] 80 mg PO Q48H 07/11/17 [History] Gabapentin [Neurontin] 800 mg PO QID 07/11/17 [History] Levomefolate/B6/B12/Algal Oil [Metanx Capsule] 1 tab PO BID 07/11/17 [History] Mirtazapine [Remeron] 15 mg PO HS 07/11/17 [History] Quetiapine Fumarate [Seroquel] 25 - 50 mg PO HS PRN 07/11/17 [History] lamoTRIgine [Lamictal] 100 mg PO QAM 07/11/17 [History] lamoTRIgine [Lamictal] 300 mg PO HS 07/11/17 [History] Oxycodone HCl/Acetaminophen [Percocet 5-325 mg Tablet] 1 each PO QID PRN 5 Days #20 tablet 07/12/17 [Rx] Allergies/Adverse Reactions: 3 Allergy/AdvReac Type Severity Reaction Status Date / Time Cortisone Allergy Anaphylaxis Verified 07/10/17 21:41 ketorolac [From Toradol] Allergy Anaphylaxis Verified 07/10/17 21:41 latex Allergy Hives Verified 07/10/17 21:41 metoclopramide [From Reglan] Allergy Anaphylaxis Verified 07/10/17 21:41 morphine Allergy Anaphylaxis Verified 07/10/17 21:41 tramadol [From Ultram] AdvReac Nausea Verified 07/10/17 21:41 Zolpidem [From Ambien] AdvReac Insomnia Verified 07/10/17 21:41 Date of admission: 07/11/17 01:06 Primary care physician: Domingo Humphrey DO Discharging clinician: Abraham Leija Anticipated date of discharge: 07/12/17 - Patient Status Disposition: Home, Self-Care Condition: Good Functional capacity at discharge: independent ambulation Overall status at discharge: patient is progressing back to baseline - Discharge Instructions Instructions: Oxycodone/Acetaminophen (By mouth), Diabetes Mellitus Type 2 in Adults (DC) Follow Up With: Marielena Baltazar CNP [Advanced Practice Nurse] - 07/20/17 10:00 am Saira Luke CNP [Advanced Practice Nurse] - 07/19/17 10:30 am Forms: ED Satisfaction Letter Additional Instructions: Please follow up with your primary care provider within one week call your PCP or return to the ED for further evaluation for any new or ongoing symptoms resume usual medications as previously prescribed please adhere to adequate diabetic diet - Diet and Activity Activity: resume usual activities as tolerated Diet: diabetic diet Interval History: Subjectively stable. Leading up to current admission, patient does state that she has had worsened nausea/vomiting, cough, shortness of breath, and subjective fever. Patient continues to have some mild epigastric discomfort that she states is chronic and generally present. Patient does have some mild nausea which is also chronic, but was able to tolerate lunch without any episodes of emesis. Hospital course: Ms. Gaming is a 36 year old female type I diabetic who presented to the ED for concern of elevated blood glucose. Patient has had ongoing symptoms over the past week including cough, worsening abdominal discomfort, nausea, and vomiting. Initial blood glucose in the ED was demonstrated in the 900s. Patient did have ketones in the serum, pseudo-hyponatremia, and anion gap acidosis. Patient was started on insulin drip, given plentiful IV fluids, and admitted to step down unit for further stabilization and observation. Glucose adequately stabilized over course as well as any electrolyte abnormalities. Insulin infusion discontinued and SSI/basal insulin initiated. Glucose prior discharge is in 100-200 range. Patient's symptoms improved significantly and she is tolerating PO intake without emesis. Patient will be discharged home on a usual home meds with close follow-up to her PCP. Return precautions are given to the patient and patient expresses understanding. Time spent discussing smoking cessation with patient: 3 to 10 minutes - Time Spent with Patient Total time spent providing and/or coordinating discharge services: Less than 30 minutes - Constitutional Vitals: Temp Pulse Resp BP Pulse Ox 98.2 F 71 17 141/96 98 07/12/17 11:15 07/12/17 11:15 07/12/17 11:15 07/12/17 11:15 07/12/17 06:39 General appearance: Present: mild distress, A&O X 3, no acute distress, answers questions appropriately - Head Head exam: Present: atraumatic, normocephalic - Eye Eye exam: Present: normal appearance, PERRL, conjuntiva pink, sclera anicteric - Neck Neck exam general surgery: Present: supple, trachea midline - Respiratory Respiratory exam: Present: CTAB. Absent: accessory muscle use, rales, rhonchi, stridor, wheezes - Cardiovascular Cardiovascular exam: Present: RRR, +S1, +S2. Absent: diastolic murmur, gallop, rubs, +S3, +S4, systolic murmur, tachycardia - GI/Abdominal GI/Abdominal exam: Present: soft, tenderness (mild epigastric tenderness). Absent: distended - Extremities Exam Extremities exam: Present: warm, radial pulses palpable and symmetrical. Absent : calf tenderness, cyanotic, pedal edema - Neurological Exam Neurological exam: Present: CN II-XII intact, oriented X3, no focal deficits. Absent: facial droop, speech deficit - Skin Skin exam: Present: dry, intact, normal color. Absent: cyanosis, diaphoretic, mottled, pallor <German Pierre - Last Filed: 07/12/17 18:42> Date of Encounter: 07/12/17 - Discharge Diagnosis (1) DVT prophylaxis Status: Acute (2) Acute kidney injury Status: Acute (3) Gastroparesis due to DM Status: Chronic (4) Type 2 diabetes mellitus with hyperosmolar nonketotic hyperglycemia Status: Acute Date of admission: 07/11/17 01:06 Primary care physician: Domingo Humphrey DO Hospital course: Ms. Gaming is a 36 year old female - Time Spent with Patient Total time spent providing and/or coordinating discharge services: - Constitutional Vitals: Temp Pulse Resp BP Pulse Ox 98.2 F 71 17 141/96 98 07/12/17 11:15 07/12/17 11:15 07/12/17 11:15 07/12/17 11:15 07/12/17 06:39 - Attending Attestation I conducted a face to face diagnostic evaluation of this patient and my medical decision-making was reviewed with the Resident Physician, Dr. Heladio Rosario. I agree with the documented findings, disposition and treatment plan as described except to the extent set forth below: I have advised the patient to quit smoking and provided smoking cessation counseling and resources. Patient's blood glucoses well controlled. She has tolerated a diabetic diet. She is to resume her insulin pump and will be discharged home.
[2017-07-12] MEDS ORDERED: Furosemide 20 MG/2 ML VIAL IVP ONE (15:05)
[2017-07-12] MEDS ORDERED: FLUARIX QUAD 2017-18 36MOS UP/PF 0.5 ML SYRINGE IM ONE (16:25)
== END 2017-07-12 17:00 | disposition home or self-care (01) | DRG 638 ==
LOC: 2NNU 21:39 → EMEROO 21:39 → 2NNU 07-11 00:27
PROVIDERS: ADMIT Hospitalist; ATTEND Internal Medicine

== ENCOUNTER 2017-07-13 15:34 | Observation (INO) ==
[2017-07-13] MEDS ORDERED: 0.9 % Sodium Chloride 1,000 ML IVC ONE ×2 (15:40→17:52)
--- NOTE | 2017-07-13 15:45 | Emergency Department Note ---
Disposition Clinical Impression: Hyperglycemia, Poorly controlled type 1 diabetes mellitus Disposition: Admitted As Inpatient Condition: Good General Adult HPI - General Chief complaint: ED Recheck/Abnormal Lab/Rx Stated complaint: hyperglycemia Time Seen by Provider: 07/13/17 15:39 Source: patient Limitations: no limitations - History of Present Illness Pain Scale: 8 - Related Data Home Medications Medication Instructions Recorded Confirmed Labetalol [Trandate] 100 mg PO BID 04/17/15 07/13/17 Lisinopril [Zestril] 10 mg PO DAILY 04/17/15 07/13/17 Albuterol Sulfate [Albuterol 2 puff IH Q4HR PRN 06/19/15 07/13/17 Inhaler] LORazepam [Ativan] 2 mg PO TID 06/19/15 07/13/17 Estradiol 2 mg PO DAILY 08/03/16 07/13/17 Esomeprazole Magnesium [Nexium] 40 mg PO BID 08/23/16 07/13/17 Rosuvastatin Calcium [Crestor] 10 mg PO DAILY 05/07/17 07/13/17 Levomefolate/B6/B12/Algal Oil 1 tab PO BID 07/11/17 07/13/17 [Metanx Capsule] Orphenadrine [Norflex] 100 mg PO Q12H 07/13/17 07/13/17 Promethazine [Phenergan] 12.5 mg PO Q8H PRN 07/13/17 07/13/17 Subcutaneous Insulin Pump [T:Slim] 1 each MC AD 07/13/17 07/13/17 Previous Rx's Medication Instructions Recorded Lidocaine Patch [Lidoderm 5% patch] 1 each TP DAILY #6 adh..patch 07/07/17 Allergies Allergy/AdvReac Type Severity Reaction Status Date / Time Cortisone Allergy Anaphylaxis Verified 07/10/17 21:41 ketorolac [From Toradol] Allergy Anaphylaxis Verified 07/10/17 21:41 latex Allergy Hives Verified 07/10/17 21:41 metoclopramide [From Reglan] Allergy Anaphylaxis Verified 07/10/17 21:41 morphine Allergy Anaphylaxis Verified 07/10/17 21:41 tramadol [From Ultram] AdvReac Nausea Verified 07/10/17 21:41 Zolpidem [From Ambien] AdvReac Insomnia Verified 07/10/17 21:41 Past Medical History - Past Medical History Medical history: Reports: asthma, diabetes, GERD, hypertension, other Surgical history: Reports: appendectomy, cholecystectomy, hysterectomy, knee replacement, other Psychiatric history: Reports: anxiety, depression, panic disorder [employer] TE[employer]ER history: Reports: other - Social History Smoking Status: Former smoker Smokeless Tobacco Status: No Alcohol use: Reports: none Drug use: Reports: none Physical Exam - General Limitations: no limitations General appearance: alert, in no apparent distress Course Vital Signs Temperature 99.1 F 07/13/17 15:37 Pulse Rate 96 07/13/17 15:37 Respiratory Rate 16 07/13/17 15:37 Blood Pressure 143/96 07/13/17 15:37 O2 Sat by Pulse Oximetry 99 07/13/17 15:37 Temperature 98.0 F 07/13/17 20:42 Pulse Rate 81 07/13/17 20:42 Respiratory Rate 16 07/13/17 20:42 Blood Pressure 164/87 07/13/17 20:42 O2 Sat by Pulse Oximetry 98 07/13/17 20:42 Oxygen Delivery Oxygen Delivery Nasal Cannula Medical Decision Making - Lab Data Result diagrams: 07/13/17 17:13 07/13/17 17:13 Lab Results 07/13/17 07/13/17 07/13/17 Range/Units 15:38 17:13 17:13 WBC 5.4 (4.3-11.1) K/mcL RBC 4.18 (3.82-4.97) M/mcL Hgb 12.8 D (11.5-15.4) g/dL Hct 35.9 (35.3-44.9) % MCV 85.9 (83.0-100.0) fL MCH 30.6 (28.0-33.3) pg MCHC 35.7 H (31.6-35.5) g/dL RDW 12.5 (11.5-14.5) % Plt Count 189 (140-400) K/mcL MPV 10.1 (9.4-12.4) fL Immature Gran % 0.0 (0-4) % Seg Neutrophils % 75.7 % Lymphocytes % 18.9 % Monocytes % 3.5 % Eosinophils % 1.3 % Basophils % 0.6 % Neutrophils # 4.1 (1.6-8.9) K/mcL Lymphocytes # 1.0 (0.6-4.6) K/mcL Monocytes # 0.2 (0.0-1.3) K/mcL Eosinophils # 0.1 (0.0-0.6) K/mcL Basophils # 0.0 (0.0-0.2) K/mcL VBG pH (7.32-7.42) pH Units VBG pCO2 (41-51) mmHg VBG pO2 (25-50) mmHg VBG HCO3 (21-27) mEq/L Sodium 131 L (136-145) mEq/L Potassium 4.0 (3.5-4.5) mEq/L Chloride 96 L (98-109) mEq/L Carbon Dioxide 25 (19-29) mEq/L BUN 17 (7-20) mg/dL Creatinine 1.20 H (0.57-1.11) mg/dL Est GFR ( Amer) > 60 (> 60) Est GFR (Non-Af Amer) 51 L (> 60) BUN/Creatinine Ratio 14 (6-26) Glucose 562 H* (70-99) mg/dL POC Glucose 559 H* (58-89) Calculated Osmolality 299 (280-300) Calcium 9.2 (8.6-10.8) mg/dL Total Bilirubin 0.2 (0.2-1.2) mg/dL AST 15 (5-34) Units/L ALT 23 (0-55) Units/L Alkaline Phosphatase 127 H (38-126) Units/L Serum Total Protein 7.6 (6.0-8.3) g/dL Albumin 3.5 (3.5-5.0) g/dL Globulin 4.1 H (2.4-3.5) g/dL Albumin/Globulin Ratio 0.9 L (1.1-2.2) Amylase 18 L (25-125) Units/L Lipase < 10 (8-78) Units/L Beta-Hydroxybutyric Acd 0.27 (0.02-0.27) mmol/L 07/13/17 07/13/17 Range/Units 17:26 18:38 WBC (4.3-11.1) K/mcL RBC (3.82-4.97) M/mcL Hgb (11.5-15.4) g/dL Hct (35.3-44.9) % MCV (83.0-100.0) fL MCH (28.0-33.3) pg MCHC (31.6-35.5) g/dL RDW (11.5-14.5) % Plt Count (140-400) K/mcL MPV (9.4-12.4) fL Immature Gran % (0-4) % Seg Neutrophils % % Lymphocytes % % Monocytes % % Eosinophils % % Basophils % % Neutrophils # (1.6-8.9) K/mcL Lymphocytes # (0.6-4.6) K/mcL Monocytes # (0.0-1.3) K/mcL Eosinophils # (0.0-0.6) K/mcL Basophils # (0.0-0.2) K/mcL VBG pH 7.50 H (7.32-7.42) pH Units VBG pCO2 38 L (41-51) mmHg VBG pO2 54 H (25-50) mmHg VBG HCO3 30 H (21-27) mEq/L Sodium (136-145) mEq/L Potassium (3.5-4.5) mEq/L Chloride (98-109) mEq/L Carbon Dioxide (19-29) mEq/L BUN (7-20) mg/dL Creatinine (0.57-1.11) mg/dL Est GFR ( Amer) (> 60) Est GFR (Non-Af Amer) (> 60) BUN/Creatinine Ratio (6-26) Glucose (70-99) mg/dL POC Glucose 471 H* (58-89) Calculated Osmolality (280-300) Calcium (8.6-10.8) mg/dL Total Bilirubin (0.2-1.2) mg/dL AST (5-34) Units/L ALT (0-55) Units/L Alkaline Phosphatase (38-126) Units/L Serum Total Protein (6.0-8.3) g/dL Albumin (3.5-5.0) g/dL Globulin (2.4-3.5) g/dL Albumin/Globulin Ratio (1.1-2.2) Amylase (25-125) Units/L Lipase (8-78) Units/L Beta-Hydroxybutyric Acd (0.02-0.27) mmol/L Attestation Statement - Attestation Attestation: I examined this patient and my medical decision-making was reviewed with the Resident Physician. I agree with the documented findings, disposition and treatment plan as described except to the extent set forth below. [id number] time provided Patient arrives by EMS complaining of hyperglycemia. She was recently admitted for similar symptoms. She was managed on an insulin infusion and then transition back to her insulin pump on discharge. She appears in no acute distress. Accu-Chek is elevated
[2017-07-13] MEDS ORDERED: Acetaminophen 325 MG TABLET PO ONE (17:16)
[2017-07-13] MEDS ORDERED: *HR* Promethazine 25 MG/ML VIAL IVP ONE (17:16)
[2017-07-13 17:23] LABS: Basophils % 0.6 %; Eosinophils # 0.1 K/mcL (0.0-0.6); Eosinophils % 1.3 %; Hematocrit 35.9 % (35.3-44.9); Lymphocytes % 18.9 %; Mean Corpuscular HGB Conc 35.7 g/dL (31.6-35.5); Mean Corpuscular Hemoglobin 30.6 pg (28.0-33.3); Mean Corpuscular Volume 85.9 fL (83.0-100.0); Mean Platelet Volume 10.1 fL (9.4-12.4); Monocytes # 0.2 K/mcL (0.0-1.3); Monocytes % 3.5 %; Neutrophils # 4.1 K/mcL (1.6-8.9); Platelet Count 189 K/mcL (140-400); Red Blood Count 4.18 M/mcL (3.82-4.97); Red Cell Distribution Width 12.5 % (11.5-14.5); Segmented Neutrophils % 75.7 %
[2017-07-13 17:25] LABS: Hemoglobin 12.8 g/dL (11.5-15.4)
[2017-07-13 17:29] LABS: VBG HCO3 30 mEq/L (21-27); VBG PCO2 38 mmHg (41-51); VBG PO2 54 mmHg (25-50)
--- NOTE | 2017-07-13 17:32 | Emergency Department Note ---
Disposition Clinical Impression: Hyperglycemia, Poorly controlled type 1 diabetes mellitus Disposition: Admitted As Inpatient Condition: Good Time of Disposition: 20:51 General Adult HPI - General Chief complaint: ED Recheck/Abnormal Lab/Rx Stated complaint: hyperglycemia Time Seen by Provider: 07/13/17 15:39 Source: patient Limitations: no limitations Nursing Notes Reviewed: Yes Vital Signs Reviewed: Yes - History of Present Illness HPI Narrative: Ms. Gaming, a 36yo female, presents from home for evaluation of hyperglycemia. Patient has a history of type 1 diabetes for the last 24 years. Currently on an insulin pump. Managed by nurse practitioner in endocrinology at [facility]. Patient was discharged 07/12/17 for DKA. Per the patient, she was advised to stay for an additional day however preferred to leave and was subsequently discharged. This morning, patient's blood glucose was, "normal," in the 100s. Prior to arrival, her blood glucose meter read, "high." She has associated headache, nausea, generalized abdominal pains. PMH: Gastroparesis secondary to diabetes mellitus, diabetes type 1, history of DKA Habits: Current every day smoker. Pain Scale: 7 - Related Data Home Medications Medication Instructions Recorded Confirmed Labetalol [Trandate] 100 mg PO BID 04/17/15 07/13/17 Lisinopril [Zestril] 10 mg PO DAILY 04/17/15 07/13/17 Albuterol Sulfate [Albuterol 2 puff IH Q4HR PRN 06/19/15 07/13/17 Inhaler] LORazepam [Ativan] 2 mg PO TID 06/19/15 07/13/17 Estradiol 2 mg PO DAILY 08/03/16 07/13/17 Esomeprazole Magnesium [Nexium] 40 mg PO BID 08/23/16 07/13/17 Rosuvastatin Calcium [Crestor] 10 mg PO DAILY 05/07/17 07/13/17 Levomefolate/B6/B12/Algal Oil 1 tab PO BID 07/11/17 07/13/17 [Metanx Capsule] Orphenadrine [Norflex] 100 mg PO Q12H 07/13/17 07/13/17 Promethazine [Phenergan] 12.5 mg PO Q8H PRN 07/13/17 07/13/17 Subcutaneous Insulin Pump [T:Slim] 1 each MC AD 07/13/17 07/13/17 Previous Rx's Medication Instructions Recorded Lidocaine Patch [Lidoderm 5% patch] 1 each TP DAILY #6 adh..patch 07/07/17 Allergies Allergy/AdvReac Type Severity Reaction Status Date / Time Cortisone Allergy Anaphylaxis Verified 07/10/17 21:41 ketorolac [From Toradol] Allergy Anaphylaxis Verified 07/10/17 21:41 latex Allergy Hives Verified 07/10/17 21:41 metoclopramide [From Reglan] Allergy Anaphylaxis Verified 07/10/17 21:41 morphine Allergy Anaphylaxis Verified 07/10/17 21:41 tramadol [From Ultram] AdvReac Nausea Verified 07/10/17 21:41 Zolpidem [From Ambien] AdvReac Insomnia Verified 07/10/17 21:41 All systems ED: reviewed and negative except as stated. Review of Systems: As Per HPI Past Medical History - Past Medical History Medical history: Reports: asthma, diabetes, GERD, hypertension, other Surgical history: Reports: appendectomy, cholecystectomy, hysterectomy, knee replacement, other Psychiatric history: Reports: anxiety, depression, panic disorder [employer] history: Reports: other - Social History Smoking Status: Former smoker Smokeless Tobacco Status: No Alcohol use: Reports: none Drug use: Reports: none Physical Exam - General Limitations: no limitations General appearance: alert, in no apparent distress Course Course Narrative: Patient is alert, awake, with mentation intact. There is a smell of 40 ketones in the patient's room. Intake blood glucose was in the 580s. After multiple attempts of peripheral IV access including use of ultrasound, all peripheral attempts failed and patient was agreeable to central line. Right internal jugular central line placed. Patient is hyperglycemic, nonketotic, not acidotic. Patient has an anion gap of 10. Despite the lack of being diabetic ketoacidosis, there is clinical concern that the patient is a poorly controlled diabetic and has returned to the hospital less than 24 hours after discharge. Discussed the patient with the admitting hospitalist, Dr. Adames, who is agreeable to except the patient overnight for continued evaluation and management. Vital Signs Temperature 99.1 F 07/13/17 15:37 Pulse Rate 96 07/13/17 15:37 Respiratory Rate 16 07/13/17 15:37 Blood Pressure 143/96 07/13/17 15:37 O2 Sat by Pulse Oximetry 99 07/13/17 15:37 Temperature 98.0 F 07/13/17 20:42 Pulse Rate 81 07/13/17 20:42 Respiratory Rate 16 07/13/17 20:42 Blood Pressure 164/87 07/13/17 20:42 O2 Sat by Pulse Oximetry 98 07/13/17 20:42 Oxygen Delivery Oxygen Delivery Nasal Cannula Medical Decision Making - Lab Data Result diagrams: 07/13/17 17:13 07/13/17 17:13 Lab Results 07/13/17 07/13/17 07/13/17 Range/Units 15:38 17:13 17:13 WBC 5.4 (4.3-11.1) K/mcL RBC 4.18 (3.82-4.97) M/mcL Hgb 12.8 D (11.5-15.4) g/dL Hct 35.9 (35.3-44.9) % MCV 85.9 (83.0-100.0) fL MCH 30.6 (28.0-33.3) pg MCHC 35.7 H (31.6-35.5) g/dL RDW 12.5 (11.5-14.5) % Plt Count 189 (140-400) K/mcL MPV 10.1 (9.4-12.4) fL Immature Gran % 0.0 (0-4) % Seg Neutrophils % 75.7 % Lymphocytes % 18.9 % Monocytes % 3.5 % Eosinophils % 1.3 % Basophils % 0.6 % Neutrophils # 4.1 (1.6-8.9) K/mcL Lymphocytes # 1.0 (0.6-4.6) K/mcL Monocytes # 0.2 (0.0-1.3) K/mcL Eosinophils # 0.1 (0.0-0.6) K/mcL Basophils # 0.0 (0.0-0.2) K/mcL VBG pH (7.32-7.42) pH Units VBG pCO2 (41-51) mmHg VBG pO2 (25-50) mmHg VBG HCO3 (21-27) mEq/L Sodium 131 L (136-145) mEq/L Potassium 4.0 (3.5-4.5) mEq/L Chloride 96 L (98-109) mEq/L Carbon Dioxide 25 (19-29) mEq/L BUN 17 (7-20) mg/dL Creatinine 1.20 H (0.57-1.11) mg/dL Est GFR ( Amer) > 60 (> 60) Est GFR (Non-Af Amer) 51 L (> 60) BUN/Creatinine Ratio 14 (6-26) Glucose 562 H* (70-99) mg/dL POC Glucose 559 H* (58-89) Calculated Osmolality 299 (280-300) Calcium 9.2 (8.6-10.8) mg/dL Total Bilirubin 0.2 (0.2-1.2) mg/dL AST 15 (5-34) Units/L ALT 23 (0-55) Units/L Alkaline Phosphatase 127 H (38-126) Units/L Serum Total Protein 7.6 (6.0-8.3) g/dL Albumin 3.5 (3.5-5.0) g/dL Globulin 4.1 H (2.4-3.5) g/dL Albumin/Globulin Ratio 0.9 L (1.1-2.2) Beta-Hydroxybutyric Acd 0.27 (0.02-0.27) mmol/L 07/13/17 07/13/17 Range/Units 17:26 18:38 WBC (4.3-11.1) K/mcL RBC (3.82-4.97) M/mcL Hgb (11.5-15.4) g/dL Hct (35.3-44.9) % MCV (83.0-100.0) fL MCH (28.0-33.3) pg MCHC (31.6-35.5) g/dL RDW (11.5-14.5) % Plt Count (140-400) K/mcL MPV (9.4-12.4) fL Immature Gran % (0-4) % Seg Neutrophils % % Lymphocytes % % Monocytes % % Eosinophils % % Basophils % % Neutrophils # (1.6-8.9) K/mcL Lymphocytes # (0.6-4.6) K/mcL Monocytes # (0.0-1.3) K/mcL Eosinophils # (0.0-0.6) K/mcL Basophils # (0.0-0.2) K/mcL VBG pH 7.50 H (7.32-7.42) pH Units VBG pCO2 38 L (41-51) mmHg VBG pO2 54 H (25-50) mmHg VBG HCO3 30 H (21-27) mEq/L Sodium (136-145) mEq/L Potassium (3.5-4.5) mEq/L Chloride (98-109) mEq/L Carbon Dioxide (19-29) mEq/L BUN (7-20) mg/dL Creatinine (0.57-1.11) mg/dL Est GFR ( Amer) (> 60) Est GFR (Non-Af Amer) (> 60) BUN/Creatinine Ratio (6-26) Glucose (70-99) mg/dL POC Glucose 471 H* (58-89) Calculated Osmolality (280-300) Calcium (8.6-10.8) mg/dL Total Bilirubin (0.2-1.2) mg/dL AST (5-34) Units/L ALT (0-55) Units/L Alkaline Phosphatase (38-126) Units/L Serum Total Protein (6.0-8.3) g/dL Albumin (3.5-5.0) g/dL Globulin (2.4-3.5) g/dL Albumin/Globulin Ratio (1.1-2.2) Beta-Hydroxybutyric Acd (0.02-0.27) mmol/L
[2017-07-13 17:34] LABS: Beta-Hydroxybutyric Acid 0.27 mmol/L (0.02-0.27)
[2017-07-13 17:36] LABS: Alanine Aminotransferase 23 Units/L (0-55); Albumin 3.5 g/dL (3.5-5.0); Albumin/Globulin Ratio 0.9 (1.1-2.2); Alkaline Phosphatase 127 Units/L (38-126); Aspartate Amino Transferase 15 Units/L (5-34); BUN/Creatinine Ratio 14 (6-26); Bilirubin,Total 0.2 mg/dL (0.2-1.2); Blood Urea Nitrogen 17 mg/dL (7-20); Calcium 9.2 mg/dL (8.6-10.8); Carbon Dioxide 25 mEq/L (19-29); Chloride 96 mEq/L (98-109); Globulin 4.1 g/dL (2.4-3.5); Osmolality,Calculated 299 (280-300); Sodium 131 mEq/L (136-145); Total Protein 7.6 g/dL (6.0-8.3); eGFR For African Americans > 60 (> 60); eGFR For Non-African Americans 51 (> 60)
[2017-07-13] MEDS ORDERED: Insulin Human Regular 10 UNIT in 0.9 % Sodium Chloride 10 ML IV ONE (17:37)
[2017-07-13 17:41] LABS: Glucose 562 mg/dL (70-99)
[2017-07-13] MEDS ORDERED: *HR* HYDROmorphone (PF) 1 MG/ML SYRINGE IVP ONE (18:15)
[2017-07-13 20:53] LABS: Amylase 18 Units/L (25-125)
[2017-07-13 20:55] LABS: Lipase < 10 Units/L (8-78)
[2017-07-13] MEDS ORDERED: Dextrose Gel 15 GM PO PRN ×2 (21:08)
[2017-07-13] MEDS ORDERED: *HR* Dextrose 50 % in Water (Syg) 50 ML SYRINGE IVP PRN (21:08)
[2017-07-13] MEDS ORDERED: D5% in Water 1,000 ML IVC PRN (21:08)
[2017-07-13] MEDS ORDERED: Naloxone 0.4 MG/ML INJ IVP PRN (21:15)
[2017-07-13] MEDS ORDERED: *HR* LORazepam 1 MG TABLET PO SCH (21:15)
[2017-07-13] MEDS ORDERED: Acetaminophen 325 MG TABLET PO PRN (21:15)
[2017-07-13] MEDS ORDERED: *HR* HYDROmorphone 2 MG/ML SYRINGE IVP PRN (21:39)
--- NOTE | 2017-07-13 21:42 | Internal Med History&Physical ---
Date of Encounter: 07/13/17 Time of Encounter: 20:00 Assessment and Plan (1) Hyperglycemia Current visit: Yes Status: Acute Patient has type 1 diabetes on insulin pump. Recently DKA. Glucose level over 500 in ER. - Patient did not meet the DKA criteria at this time. - We will continue insulin pump at basal infusion rate as patient is nothing by mouth. - Place sliding scale every 4 hours to cover hyperglycemia. - Give patient IV fluid with potassium. Check BMP every 4 hours. (2) Abdominal pain Current visit: No Status: Acute Patient complaint abdominal pain. Abdominal exam is benign. Will check CT abdominal. Lipase and amylase negative. - Probably due to acute gastritis or gastroparesis caused by diabetes. - Please patient on nothing by mouth, IV fluid. - Symptomatic treatment for nausea and vomiting. - Closely Follow-up BMP Qualifiers: Abdominal location: epigastric Qualified Code(s): R10.13 - Epigastric pain (3) Acute kidney injury Current visit: No Status: Acute Probably due to intractable vomiting. Will give IV fluid and follow-up renal function. Avoid nephrotoxic medications (4) DVT prophylaxis Current visit: No Status: Acute Heparin subcutaneously (5) Hypertension Current visit: No Status: Chronic Continue home medications Qualifiers: Hypertension type: essential hypertension Qualified Code(s): I10 - Essential (primary) hypertension Internal Medicine - H&P: HPI Chief complaint: Abd pain, nausea and vomiting Admitted From: Home Plans for Post Hospital Care: Home History of present illness: Ms. Gaming is a 36 year old female with history of type 1 diabetes on insulin pump, hypertension, recent discharge from hospital for DKA presented to ER for abdominal pain, nausea, and vomiting. Patient said since yesterday evening, she started to have abdominal pain, pain located on left upper quadrant, no radiation, 8-9 out of 10. Patient also has nausea and vomited 5 times since yesterday, the vomiting are clear liquid, no blood in it. Patient also complained fever with temperature 102. She has no diarrhea. The patient denies cough, sore throat, urinating symptoms. Patient checked the glucose level by herself, which was at 128 yesterday evening, but high to "cannot read" today. Patient came to ER for further management and was found hyperglycemia to 500s. No further fever. Patient was admitted for further management. Past Med Surg Social Fam HX - Past Medical History Medical history: asthma, diabetes, GERD, hypertension, other Psychiatric history: anxiety, depression, panic disorder - Past Surgical History Surgical History: appendectomy, cholecystectomy, hysterectomy, knee replacement , other - Social History Smoking Status: Former smoker Smokeless Tobacco Status: No Alcohol use: none Drug use: none - Family History Mother Living Status: Still Living Hx Family Cardiac Disorders: Yes (HTN) Father Living Status: Still Living Hx Family Cardiac Disorders: Yes (HTN) Hx Family Respiratory Disorders: Yes Internal Medicine - H&P: Meds Labetalol [Trandate] 100 mg PO BID 04/17/15 [History] Lisinopril [Zestril] 10 mg PO DAILY 04/17/15 [History] Albuterol Sulfate [Albuterol Inhaler] 2 puff IH Q4HR PRN 06/19/15 [History] LORazepam [Ativan] 2 mg PO TID 06/19/15 [History] Estradiol 2 mg PO DAILY 08/03/16 [History] Esomeprazole Magnesium [Nexium] 40 mg PO BID 08/23/16 [History] Rosuvastatin Calcium [Crestor] 10 mg PO DAILY 05/07/17 [History] Lidocaine Patch [Lidoderm 5% patch] 1 each TP DAILY #6 adh..patch 07/07/17 [Rx] Levomefolate/B6/B12/Algal Oil [Metanx Capsule] 1 tab PO BID 07/11/17 [History] Orphenadrine [Norflex] 100 mg PO Q12H 07/13/17 [History] Promethazine [Phenergan] 12.5 mg PO Q8H PRN 07/13/17 [History] Subcutaneous Insulin Pump [T:Slim] 1 each MC AD 07/13/17 [History] 3 Allergy/AdvReac Type Severity Reaction Status Date / Time Cortisone Allergy Anaphylaxis Verified 07/10/17 21:41 ketorolac [From Toradol] Allergy Anaphylaxis Verified 07/10/17 21:41 latex Allergy Hives Verified 07/10/17 21:41 metoclopramide [From Reglan] Allergy Anaphylaxis Verified 07/10/17 21:41 morphine Allergy Anaphylaxis Verified 07/10/17 21:41 tramadol [From Ultram] AdvReac Nausea Verified 07/10/17 21:41 Zolpidem [From Ambien] AdvReac Insomnia Verified 07/10/17 21:41 All Systems PM: A 10-system review of systems was performed and is negative for pertinent findings except as documented above in the HPI. - Constitutional Vitals: Temp Pulse Resp BP Pulse Ox 98.0 F 81 16 164/87 98 07/13/17 20:42 07/13/17 20:42 07/13/17 20:42 07/13/17 20:42 07/13/17 20:42 General appearance: Present: A&O X 3, no acute distress, answers questions appropriately - Head Head exam: Present: atraumatic, normocephalic - Eye Eye exam: Present: PERRL, conjuntiva pink, sclera anicteric Pupils: Present: PERRL - Neck Neck exam general surgery: Present: supple, trachea midline. Absent: lymphadenopathy - Respiratory Respiratory exam: Present: CTAB. Absent: accessory muscle use, rales, rhonchi, wheezes - Cardiovascular Cardiovascular exam: Present: RRR, +S1, +S2. Absent: diastolic murmur, gallop, rubs, systolic murmur - GI/Abdominal GI/Abdominal exam: Present: normal bowel sounds, soft, tenderness (Abdominal tenderness on LUQ and epigastric area, without rebound or guarding), no peritoneal signs. Absent: distended - Extremities Exam Extremities exam: Present: warm, radial pulses palpable and symmetrical. Absent : calf tenderness, cyanotic, pedal edema - Neurological Exam Neurological exam: Present: CN II-XII intact, oriented X3, no focal deficits. Absent: pronater drift, facial droop, speech deficit - Skin Skin exam: Present: dry, intact Internal Med - H&P Results - Labs CBC & Chem 7: 07/13/17 17:13 07/13/17 17:13
[2017-07-13] MEDS: Insulin LISPRO 300 UNITS/3 ML VIAL SQ SCH (22:19)
[2017-07-13] MEDS ORDERED: *HR* LORazepam 2 MG/ML VIAL IVP PRN (22:55)
[2017-07-13] MEDS: Orphenadrine 100 MG TABLET.ER PO SCH (23:00)
[2017-07-13] MEDS: (Subcutaneous Insulin Pump [T:Slim] 1 EACH) MC SCH (23:01)
[2017-07-13] MEDS: *HR* Promethazine 25 MG/ML VIAL IVP PRN (23:08)
[2017-07-13 23:11] LABS: BUN/Creatinine Ratio 15 (6-26); Blood Urea Nitrogen 13 mg/dL (7-20); Calcium 8.2 mg/dL (8.6-10.8); Carbon Dioxide 24 mEq/L (19-29); Chloride 102 mEq/L (98-109); Glucose 363 mg/dL (70-99); Osmolality,Calculated 291 (280-300); Potassium 3.8 mEq/L (3.5-4.5); Sodium 133 mEq/L (136-145); eGFR For African Americans > 60 (> 60); eGFR For Non-African Americans > 60 (> 60)
[2017-07-13] MEDS: 0.9 % Sodium Chloride w KCl 20 MEQ/1,000 ML MLS IVC SCH (23:21)
[2017-07-14] MEDS: MetroNIDAZOLE 500 MG/100 ML 500 MG/100 ML BAG IVPB SCH ×3 (01:30→18:50)
[2017-07-14] MEDS ORDERED: *HR* HYDROmorphone (PF) 1 MG/ML SYRINGE ONE (02:05)
[2017-07-14] MEDS: Ondansetron 4 MG/2 ML VIAL IVP PRN ×2 (02:07→18:51)
[2017-07-14] MEDS: *HR* HYDROmorphone 2 MG/ML SYRINGE IVP PRN ×2 (02:16→06:00)
[2017-07-14] MEDS: *HR* Promethazine 25 MG/ML VIAL IVP PRN ×3 (06:00→21:40)
[2017-07-14] MEDS: Insulin LISPRO 300 UNITS/3 ML VIAL SQ SCH ×4 (06:09→23:48)
[2017-07-14 06:26] LABS: Hematocrit 32.1 % (35.3-44.9); Immature Granulocytes % 0.2 % (0-4); Lymphocytes % 36.4 %; Mean Corpuscular HGB Conc 34.6 g/dL (31.6-35.5); Mean Corpuscular Hemoglobin 30.3 pg (28.0-33.3); Mean Corpuscular Volume 87.7 fL (83.0-100.0); Mean Platelet Volume 9.9 fL (9.4-12.4); Platelet Count 184 K/mcL (140-400); Red Blood Count 3.66 M/mcL (3.82-4.97); Red Cell Distribution Width 12.6 % (11.5-14.5); Segmented Neutrophils % 51.4 %
[2017-07-14 06:27] LABS: Basophils % 0.6 %; Eosinophils # 0.2 K/mcL (0.0-0.6); Eosinophils % 5.1 %; Lymphocytes # 1.7 K/mcL (0.6-4.6); Monocytes # 0.3 K/mcL (0.0-1.3); Monocytes % 6.3 %; Neutrophils # 2.4 K/mcL (1.6-8.9); Nucleated Red Blood Cells 0.4 /100 WBC (0)
[2017-07-14 06:29] LABS: Hemoglobin 11.1 g/dL (11.5-15.4)
[2017-07-14 06:39] LABS: BUN/Creatinine Ratio 13 (6-26); Blood Urea Nitrogen 12 mg/dL (7-20); Carbon Dioxide 23 mEq/L (19-29); Chloride 104 mEq/L (98-109); Glucose 411 mg/dL (70-99); Magnesium 1.1 mg/dL (1.6-2.6); Osmolality,Calculated 295 (280-300); Potassium 4.1 mEq/L (3.5-4.5); Sodium 134 mEq/L (136-145); eGFR For African Americans > 60 (> 60); eGFR For Non-African Americans > 60 (> 60)
[2017-07-14] MEDS: 0.9 % Sodium Chloride w KCl 20 MEQ/1,000 ML MLS IVC SCH ×3 (06:39→21:41)
[2017-07-14] MEDS: *HR* Heparin 5,000 UNIT/ML VIAL SQ SCH ×2 (06:39→18:52)
[2017-07-14] MEDS: Pantoprazole 40 MG VIAL IVP SCH (11:06)
[2017-07-14] MEDS: Orphenadrine 100 MG TABLET.ER PO SCH ×2 (11:06→21:45)
[2017-07-14] MEDS ORDERED: Insulin LISPRO 300 UNITS/3 ML VIAL SQ SCH ×2 (11:30→21:00)
[2017-07-14] MEDS: *HR* HYDROmorphone (PF) 1 MG/ML SYRINGE IVP PRN ×3 (13:53→23:48)
--- NOTE | 2017-07-14 14:33 | Internal Med Progress Note ---
Date of Encounter: 07/14/17 Time of Encounter: 11:00 - Assessment and plan (1) Colitis Current Visit: No Status: Acute Assessment and plan: Piedad Gaming is a 36-year-old female with past medical history type 1 diabetes , hypertension and anxiety who presented to [facility] on with complaints of abdominal pain. She was found to have uncontrolled blood sugar and colitis. She was admitted for further workup and treatment. 1. Colitis: presented with [place] pain that started morning of admission. Abdominal CT with slightly thick walled transverse colon, suggesting inflammation, no pericolonic and laboratory stranding or fluid, no evidence of obstruction. Afebrile, no elevated WBC. Continue IV Cipro and Flagyl started on admission was worsening abdominal pain. Consider repeating [place] if pain persists/does not improve. 2. Type 1 diabetes: Recently admitted with DKA. Blood sugar reading as high on home glucometer area and patient administered 45 units of insulin via her insulin pump without improvement blood sugar. Blood sugar over 500 on arrival, no evidence of DKA. Received subcutaneous insulin in the ED. Concerned insulin pump may be malfunctioning as she took large amount of insulin with no improvement blood sugar. Follows with Dr. Luke (endocrinology) left message with office. Continue every 4 hour Accu-Chek with high-dose sliding scale for now. Monitor blood sugar and titrate PRN. Serial BMP 3. Anxiety: Per history. Takes Ativan at home; OA RRS reviewed on 07/14/17 the patient does have active Rx. Continue home Ativan. 4. DVT prophylaxis: Heparin (2) Diabetes mellitus type 1 with complications Current Visit: No Status: Chronic (3) Generalized anxiety disorder Current Visit: No Status: Chronic (4) Hypertension Current Visit: No Status: Chronic Qualifiers: Hypertension type: essential hypertension Qualified Code(s): I10 - Essential (primary) hypertension - Subjective Interval history: Seedings in appetite. Patient is new to me. Information obtained from chart review and patient report. Patient says that she was recently discharged from the hospital and thinks she left to see him. She says she was told she still was acidotic when she left. Now she returns with elevated blood sugar and abdominal pain. Still with diffuse abdominal pain on exam, tender to the touch. She is nauseated but no emesis. Last bowel movement yesterday. Says she took 45 units of insulin within a 5 hour time span for elevated blood sugar with no drop in blood sugar. No chest pain or shortness breath on exam. - Constitutional Vitals: Temp Pulse Resp BP Pulse Ox 97.8 F 71 16 151/89 97 07/14/17 10:52 07/14/17 10:52 07/14/17 10:52 07/14/17 10:52 07/14/17 10:52 General appearance: Present: A&O X 3, no acute distress, answers questions appropriately - Head Head exam: Present: atraumatic, normocephalic - Eye Eye exam: Present: PERRL, conjuntiva pink, sclera anicteric Pupils: Present: PERRL - Neck Neck exam general surgery: Present: supple, trachea midline. Absent: lymphadenopathy - Respiratory Respiratory exam: Present: CTAB. Absent: accessory muscle use, rales, rhonchi, wheezes - Cardiovascular Cardiovascular exam: Present: RRR, +S1, +S2. Absent: diastolic murmur, gallop, rubs, systolic murmur - GI/Abdominal GI/Abdominal exam: Present: normal bowel sounds, soft, tenderness, no peritoneal signs. Absent: distended - Extremities Exam Extremities exam: Present: warm, radial pulses palpable and symmetrical. Absent : calf tenderness, cyanotic, pedal edema - Neurological Exam Neurological exam: Present: CN II-XII intact, oriented X3, no focal deficits. Absent: pronater drift, facial droop, speech deficit - Skin Skin exam: Present: dry, intact Internal Medicine: Result - Labs CBC & Chem 7: 07/14/17 06:00 07/14/17 06:00 Labs: Short CBC 07/14/17 Range/Units 06:00 WBC 4.7 (4.3-11.1) K/mcL Hgb 11.1 L D (11.5-15.4) g/dL Hct 32.1 L (35.3-44.9) % Plt Count 184 (140-400) K/mcL Neutrophils # 2.4 (1.6-8.9) K/mcL BMP 07/13/17 07/14/17 22:30 06:00 Sodium 133 L 134 L Potassium 3.8 4.1 Chloride 102 104 Carbon Dioxide 24 23 BUN 13 12 Creatinine 0.85 0.90 Glucose 363 H 411 H Calcium 8.2 L 8.0 L - Impressions Impressions Abdomen/Pelvis CT 07/13/17 20:22 IMPRESSION: Moderate colonic stool volume centered primarily along the transverse colon which appears slightly thick-walled for degree of distention, suggesting inflammation. No pericolonic inflammatory stranding or fluid. No upstream bowel dilatation to suggest obstruction. No other abnormality identified to account for the patient's abdominal discomfort. Mild hepatosplenomegaly. D/ / 07/13/2017 21:51:32 Ernie Manley / keaton Interpreting Provider: Ernie Manley Consult Discharge Plan - Plan Referrals: Marielena Baltazar CNP [Advanced Practice Nurse] - 07/20/17 10:00 am Saira Luke CNP [Advanced Practice Nurse] - 07/19/17 10:30 am Domingo Humphrey DO [Primary Care Provider] - 07/27/17 1:30 pm
[2017-07-14] MEDS ORDERED: *HR* HYDROmorphone 2 MG/ML SYRINGE IVP ONE (14:35)
[2017-07-14] MEDS ORDERED: Insulin LISPRO 300 UNITS/3 ML VIAL SQ ONE (14:37)
--- NOTE | 2017-07-14 14:50 | Internal Med Progress Note ---
Date of Encounter: 07/14/17 Time of Encounter: 14:50 - Assessment and plan (1) Colitis Current Visit: No Status: Acute Assessment and plan: Piedad Gaming is a 36-year-old female with past medical history type 1 diabetes , hypertension and anxiety who presented to [facility] on with complaints of abdominal pain. She was found to have uncontrolled blood sugar and colitis. She was admitted for further workup and treatment. 1. Colitis: presented with [place] pain that started morning of admission. Abdominal CT with slightly thick walled transverse colon, suggesting inflammation, no pericolonic and laboratory stranding or fluid, no evidence of obstruction. Afebrile, no elevated WBC. Continue IV Cipro and Flagyl started on admission was worsening abdominal pain. Consider repeating [place] if pain persists/does not improve. 2. Type 1 diabetes: Recently admitted with DKA. Blood sugar reading as high on home glucometer area and patient administered 45 units of insulin via her insulin pump without improvement blood sugar. Blood sugar over 500 on arrival, no evidence of DKA. Received subcutaneous insulin in the ED. Concerned insulin pump may be malfunctioning as she took large amount of insulin with no improvement blood sugar. Follows with Dr. Luke (endocrinology) left message with office. Continue every 4 hour Accu-Chek with high-dose sliding scale for now. Monitor blood sugar and titrate PRN. Serial BMP 3. Anxiety: Per history. Takes Ativan at home; OA RRS reviewed on 07/14/17 the patient does have active Rx. Continue home Ativan. 4. DVT prophylaxis: Heparin (2) Diabetes mellitus type 1 with complications Current Visit: No Status: Chronic (3) Generalized anxiety disorder Current Visit: No Status: Chronic (4) Hypertension Current Visit: No Status: Chronic Qualifiers: Hypertension type: essential hypertension Qualified Code(s): I10 - Essential (primary) hypertension - Subjective Interval history: Seedings in appetite. Patient is new to me. Information obtained from chart review and patient report. Patient says that she was recently discharged from the hospital and thinks she left to see him. She says she was told she still was acidotic when she left. Now she returns with elevated blood sugar and abdominal pain. Still with diffuse abdominal pain on exam, tender to the touch. She is nauseated but no emesis. Last bowel movement yesterday. Says she took 45 units of insulin within a 5 hour time span for elevated blood sugar with no drop in blood sugar. No chest pain or shortness breath on exam. - Constitutional Vitals: Temp Pulse Resp BP Pulse Ox 97.8 F 71 16 151/89 97 07/14/17 10:52 07/14/17 10:52 07/14/17 10:52 07/14/17 10:52 07/14/17 10:52 General appearance: Present: A&O X 3, no acute distress, answers questions appropriately Internal Medicine: Result - Labs CBC & Chem 7: 07/14/17 06:00 07/14/17 06:00 Labs: Short CBC 07/14/17 Range/Units 06:00 WBC 4.7 (4.3-11.1) K/mcL Hgb 11.1 L D (11.5-15.4) g/dL Hct 32.1 L (35.3-44.9) % Plt Count 184 (140-400) K/mcL Neutrophils # 2.4 (1.6-8.9) K/mcL BMP 07/13/17 07/14/17 22:30 06:00 Sodium 133 L 134 L Potassium 3.8 4.1 Chloride 102 104 Carbon Dioxide 24 23 BUN 13 12 Creatinine 0.85 0.90 Glucose 363 H 411 H Calcium 8.2 L 8.0 L - Impressions Impressions Abdomen/Pelvis CT 07/13/17 20:22 IMPRESSION: Moderate colonic stool volume centered primarily along the transverse colon which appears slightly thick-walled for degree of distention, suggesting inflammation. No pericolonic inflammatory stranding or fluid. No upstream bowel dilatation to suggest obstruction. No other abnormality identified to account for the patient's abdominal discomfort. Mild hepatosplenomegaly. D/ / 07/13/2017 21:51:32 Ernie Manley / keaton Interpreting Provider: Ernie Manley Consult Discharge Plan - Plan Referrals: Marielena Baltazar CNP [Advanced Practice Nurse] - 07/20/17 10:00 am Saira Luke CNP [Advanced Practice Nurse] - 07/19/17 10:30 am Domingo Humphrey DO [Primary Care Provider] - 07/27/17 1:30 pm
[2017-07-14] MEDS: *HR* LORazepam 1 MG TABLET PO SCH ×2 (15:43→23:48)
--- NOTE | 2017-07-14 16:06 | General Surgery Consult Note ---
<Joselin Robins - Last Filed: 07/14/17 16:03> Date of Encounter: 07/14/17 Time of Encounter: 16:00 Assessment and Plan (1) Abdominal pain Current Visit: No Status: Acute Abdominal pain of unclear etiology No urgent surgical intervention indicated Supportive care Serial abdominal exams Empiric antibiotic therapy per the hospitalist-Eleni and Swathi Will follow along to assess progress Qualifiers: Abdominal location: epigastric Qualified Code(s): R10.13 - Epigastric pain History of Present Illness Consult date: 07/14/17 Reason for consult: abdominal pain Requesting physician: Es Wagner History of present illness: Ms. Gaming is a 36-year-old female with a past medical history significant for type 1 diabetes mellitus. She has been admitted to the hospital and treated for DKA. She also reports a one-week history of abdominal pain. She states that the pain is mostly located in her right upper quadrant epigastric area and left upper quadrant. She states that the pain has progressively worsened over the last 1 week. She describes as a sharp and stabbing pain which is constant. She has neverpain like this in the past. She denies any aggravating or alleviating factors. She does report episodes of nausea and vomiting and states that this was a result of her DKA. She denies any hematemesis or coffee- ground emesis. She denies any changes in bowel habits and states that she typically has a bowel movement on a daily basis. She states she last had a bowel movement today which was a soft formed bowel movement. She denies any melena or hematochezia. She denies any difficulty with urination. She does admit to fevers during her previous admission at 102 degrees. there have been no fevers documented during this admission. She does admit to shortness of breath and chest pains. We have been asked to see and evaluate the patient for her abdominal discomfort. Past Med Surg Social Fam HX - Past Medical History Source: patient, old records reviewed Medical history: asthma, diabetes (Type 1), GERD, hypertension, other Psychiatric history: anxiety, depression, panic disorder - Past Surgical History Surgical History: appendectomy, cholecystectomy, hysterectomy, knee replacement (Left), other (Zach in right shoulder/arm) - Social History Smoking Status: Former smoker Smokeless Tobacco Status: No Alcohol use: none Drug use: none Current living situation: Home - Independent Activity Level: Independent ambulation - Family History Mother Living Status: Still Living Hx Family Cardiac Disorders: Yes (HTN, HLD) Father Living Status: Still Living Hx Family Cardiac Disorders: Yes (HTN, HLD) Hx Family Respiratory Disorders: Yes Hx Family Autoimmune Disorders: Yes (Alkylosing Spondylitis) Medications and Allergies Labetalol [Trandate] 100 mg PO BID 04/17/15 [History] Lisinopril [Zestril] 10 mg PO DAILY 04/17/15 [History] Albuterol Sulfate [Albuterol Inhaler] 2 puff IH Q4HR PRN 06/19/15 [History] LORazepam [Ativan] 2 mg PO TID 06/19/15 [History] Estradiol 2 mg PO DAILY 08/03/16 [History] Esomeprazole Magnesium [Nexium] 40 mg PO BID 08/23/16 [History] Rosuvastatin Calcium [Crestor] 10 mg PO DAILY 05/07/17 [History] Lidocaine Patch [Lidoderm 5% patch] 1 each TP DAILY #6 adh..patch 07/07/17 [Rx] Levomefolate/B6/B12/Algal Oil [Metanx Capsule] 1 tab PO BID 07/11/17 [History] Orphenadrine [Norflex] 100 mg PO Q12H 07/13/17 [History] Promethazine [Phenergan] 12.5 mg PO Q8H PRN 07/13/17 [History] Subcutaneous Insulin Pump [T:Slim] 1 each MC AD 07/13/17 [History] 3 Allergy/AdvReac Type Severity Reaction Status Date / Time Cortisone Allergy Anaphylaxis Verified 07/10/17 21:41 ketorolac [From Toradol] Allergy Anaphylaxis Verified 07/10/17 21:41 latex Allergy Hives Verified 07/10/17 21:41 metoclopramide [From Reglan] Allergy Anaphylaxis Verified 07/10/17 21:41 morphine Allergy Anaphylaxis Verified 07/10/17 21:41 tramadol [From Ultram] AdvReac Nausea Verified 07/10/17 21:41 Zolpidem [From Ambien] AdvReac Insomnia Verified 07/10/17 21:41 Review of Systems All systems PM: reviewed and no additional remarkable complaints except as stated (in the HPI) All systems PM: A 10-system review of systems was performed and is negative for pertinent findings except as documented above in the HPI. General Surgery Exam Initial Vital Signs Temp Pulse Resp BP Pulse Ox 99.1 F 96 16 143/96 99 07/13/17 15:37 07/13/17 15:37 07/13/17 15:37 07/13/17 15:37 07/13/17 15:37 - General physical appearance well developed, well nourished, no distress - Eyes normal ocular movement - ENT normal mucosa, atraumatic, normocephalic - Neck trachea midline - Respiratory normal expansion, normal respiratory effort, clear to auscultation - Cardiovascular Cardiovascular exam: Present: RRR - Abdomen Abdomen general surgery: Present: bowel sounds present, soft, tender Abdominal Tenderness: Present: epigastic, RUQ, LUQ - Integumentary Integumentary general surgery: Present: warm and dry - Neurologic Present: CN 2-12 grossly intact - Musculoskeletal Present: normal gait, normal posture - Psychiatric Psychiatric general surgery: Present: appropriate, oriented to person, oriented to place, oriented to time, speech is normal, memory intact Exam Initial Vital Signs Temp Pulse Resp BP Pulse Ox 99.1 F 96 16 143/96 99 07/13/17 15:37 07/13/17 15:37 07/13/17 15:37 07/13/17 15:37 07/13/17 15:37 Results - Labs 07/14/17 06:00 07/14/17 06:00 Abnormal lab results RBC 3.66 M/mcL (3.82-4.97) L 07/14/17 06:00 Hgb 11.1 g/dL (11.5-15.4) L D 07/14/17 06:00 Hct 32.1 % (35.3-44.9) L 07/14/17 06:00 Nucleated RBCs/100 WBC 0.4 /100 WBC (0) H 07/14/17 06:00 VBG pH 7.50 pH Units (7.32-7.42) H 07/13/17 17:26 VBG pCO2 38 mmHg (41-51) L 07/13/17 17:26 VBG pO2 54 mmHg (25-50) H 07/13/17 17:26 VBG HCO3 30 mEq/L (21-27) H 07/13/17 17:26 Sodium 134 mEq/L (136-145) L 07/14/17 06:00 Glucose 411 mg/dL (70-99) H 07/14/17 06:00 POC Glucose 319 (58-89) H 07/14/17 12:14 Calcium 8.0 mg/dL (8.6-10.8) L 07/14/17 06:00 Magnesium 1.1 mg/dL (1.6-2.6) L 07/14/17 06:00 Alkaline Phosphatase 127 Units/L (38-126) H 07/13/17 17:13 Globulin 4.1 g/dL (2.4-3.5) H 07/13/17 17:13 Albumin/Globulin Ratio 0.9 (1.1-2.2) L 07/13/17 17:13 Amylase 18 Units/L (25-125) L 07/13/17 17:13 Diabetes panel 07/13/17 07/14/17 Range/Units 22:30 06:00 Sodium 133 L 134 L (136-145) mEq/L Potassium 3.8 4.1 (3.5-4.5) mEq/L Chloride 102 104 (98-109) mEq/L Carbon Dioxide 24 23 (19-29) mEq/L BUN 13 12 (7-20) mg/dL Creatinine 0.85 0.90 (0.57-1.11) mg/dL Glucose 363 H 411 H (70-99) mg/dL Calcium 8.2 L 8.0 L (8.6-10.8) mg/dL Calcium panel 07/13/17 07/14/17 Range/Units 22:30 06:00 Calcium 8.2 L 8.0 L (8.6-10.8) mg/dL Pituitary panel 07/13/17 07/14/17 Range/Units 22:30 06:00 Sodium 133 L 134 L (136-145) mEq/L Potassium 3.8 4.1 (3.5-4.5) mEq/L Chloride 102 104 (98-109) mEq/L Carbon Dioxide 24 23 (19-29) mEq/L BUN 13 12 (7-20) mg/dL Creatinine 0.85 0.90 (0.57-1.11) mg/dL Glucose 363 H 411 H (70-99) mg/dL Calcium 8.2 L 8.0 L (8.6-10.8) mg/dL Adrenal panel 07/13/17 07/14/17 Range/Units 22:30 06:00 Sodium 133 L 134 L (136-145) mEq/L Potassium 3.8 4.1 (3.5-4.5) mEq/L Chloride 102 104 (98-109) mEq/L Carbon Dioxide 24 23 (19-29) mEq/L BUN 13 12 (7-20) mg/dL Creatinine 0.85 0.90 (0.57-1.11) mg/dL Glucose 363 H 411 H (70-99) mg/dL Calcium 8.2 L 8.0 L (8.6-10.8) mg/dL All other labs normal. - Imaging CT scan - abdomen: report reviewed CT scan - pelvis: report reviewed Additional studies: Chest X-Ray 07/13/17 16:38 IMPRESSION: Appropriate right IJ central line positioning. No apparent pneumothorax. D/ / Ernie Manley / Ernie Manley Interpreting Provider: Ernie Manley Abdomen/Pelvis CT 07/13/17 20:22 IMPRESSION: Moderate colonic stool volume centered primarily along the transverse colon which appears slightly thick-walled for degree of distention, suggesting inflammation. No pericolonic inflammatory stranding or fluid. No upstream bowel dilatation to suggest obstruction. No other abnormality identified to account for the patient's abdominal discomfort. Mild hepatosplenomegaly. D/ / 07/13/2017 21:51:32 Ernie Manley / keaton Interpreting Provider: Ernie Manley Consult Discharge Plan - Plan Referrals: Marielena Baltazar CNP [Advanced Practice Nurse] - 07/20/17 10:00 am Saira Luke CNP [Advanced Practice Nurse] - 07/19/17 10:30 am Domingo Humphrey DO [Primary Care Provider] - 07/27/17 1:30 pm - Attending Attestation For this encounter, I have reviewed the PIPE INSPECTOR or PA documentation, treatment plan, and medical decision making; and I have had face to face time with this patient. <Reginaldo Wallace - Last Filed: 07/15/17 07:36> Date of Encounter: 07/14/17 Review of Systems All systems PM: A 10-system review of systems was performed and is negative for pertinent findings except as documented above in the HPI. General Surgery Exam Initial Vital Signs Temp Pulse Resp BP Pulse Ox 99.1 F 96 16 143/96 99 07/13/17 15:37 07/13/17 15:37 07/13/17 15:37 07/13/17 15:37 07/13/17 15:37 Exam Initial Vital Signs Temp Pulse Resp BP Pulse Ox 99.1 F 96 16 143/96 99 07/13/17 15:37 07/13/17 15:37 07/13/17 15:37 07/13/17 15:37 07/13/17 15:37 Results - Labs 07/15/17 05:00 07/15/17 05:00 Abnormal lab results RBC 3.44 M/mcL (3.82-4.97) L 07/15/17 05:00 Hgb 10.6 g/dL (11.5-15.4) L 07/15/17 05:00 Hct 30.2 % (35.3-44.9) L 07/15/17 05:00 Nucleated RBCs/100 WBC 0.4 /100 WBC (0) H 07/14/17 06:00 VBG pH 7.50 pH Units (7.32-7.42) H 07/13/17 17:26 VBG pCO2 38 mmHg (41-51) L 07/13/17 17:26 VBG pO2 54 mmHg (25-50) H 07/13/17 17:26 VBG HCO3 30 mEq/L (21-27) H 07/13/17 17:26 Glucose 160 mg/dL (70-99) H 07/15/17 05:00 POC Glucose 234 (58-89) H 07/15/17 02:49 Calcium 8.1 mg/dL (8.6-10.8) L 07/15/17 05:00 Magnesium 1.1 mg/dL (1.6-2.6) L 07/14/17 06:00 Alkaline Phosphatase 127 Units/L (38-126) H 07/13/17 17:13 Globulin 4.1 g/dL (2.4-3.5) H 07/13/17 17:13 Albumin/Globulin Ratio 0.9 (1.1-2.2) L 07/13/17 17:13 Amylase 18 Units/L (25-125) L 07/13/17 17:13 Diabetes panel 07/14/17 07/15/17 Range/Units 16:16 05:00 Sodium 137 136 (136-145) mEq/L Potassium 3.7 3.6 (3.5-4.5) mEq/L Chloride 107 107 (98-109) mEq/L Carbon Dioxide 24 22 (19-29) mEq/L BUN 10 9 (7-20) mg/dL Creatinine 0.77 0.74 (0.57-1.11) mg/dL Glucose 141 H 160 H (70-99) mg/dL Calcium 8.3 L 8.1 L (8.6-10.8) mg/dL Calcium panel 07/14/17 07/15/17 Range/Units 16:16 05:00 Calcium 8.3 L 8.1 L (8.6-10.8) mg/dL Pituitary panel 07/14/17 07/15/17 Range/Units 16:16 05:00 Sodium 137 136 (136-145) mEq/L Potassium 3.7 3.6 (3.5-4.5) mEq/L Chloride 107 107 (98-109) mEq/L Carbon Dioxide 24 22 (19-29) mEq/L BUN 10 9 (7-20) mg/dL Creatinine 0.77 0.74 (0.57-1.11) mg/dL Glucose 141 H 160 H (70-99) mg/dL Calcium 8.3 L 8.1 L (8.6-10.8) mg/dL Adrenal panel 07/14/17 07/15/17 Range/Units 16:16 05:00 Sodium 137 136 (136-145) mEq/L Potassium 3.7 3.6 (3.5-4.5) mEq/L Chloride 107 107 (98-109) mEq/L Carbon Dioxide 24 22 (19-29) mEq/L BUN 10 9 (7-20) mg/dL Creatinine 0.77 0.74 (0.57-1.11) mg/dL Glucose 141 H 160 H (70-99) mg/dL Calcium 8.3 L 8.1 L (8.6-10.8) mg/dL All other labs normal. - Attending Attestation The patient is seen in evaluated. The clinical information shared with the clinical nurse practitioner. I personally reviewed the CAT scan. The CAT scan demonstrates some stool in the transverse colon that seems to be excess. This may represent colitis. Certainly there is no evidence of bowel obstruction. The patient had bowel movement earlier today. On physical examination, distracted exam is negative. Directed exam is histrionic We will be glad to follow along with you. She does not appear to have any significant intra-abdominal pathology. Reginaldo Wallace MD FACS
[2017-07-14 17:29] LABS: BUN/Creatinine Ratio 13 (6-26); Blood Urea Nitrogen 10 mg/dL (7-20); Calcium 8.3 mg/dL (8.6-10.8); Carbon Dioxide 24 mEq/L (19-29); Chloride 107 mEq/L (98-109); Glucose 141 mg/dL (70-99); Osmolality,Calculated 285 (280-300); Potassium 3.7 mEq/L (3.5-4.5); Sodium 137 mEq/L (136-145); eGFR For African Americans > 60 (> 60); eGFR For Non-African Americans > 60 (> 60)
[2017-07-14] MEDS ORDERED: *HR* HYDROmorphone (PF) 1 MG/ML SYRINGE IVP ONE (20:54)
[2017-07-14] MEDS: (Subcutaneous Insulin Pump [T:Slim] 1 EACH) MC SCH (21:41)
[2017-07-14] MEDS: Insulin DETEMIR 100 UNIT/ML X5UNITS SQ SCH (21:45)
[2017-07-15] MEDS: MetroNIDAZOLE 500 MG/100 ML 500 MG/100 ML BAG IVPB SCH ×4 (01:28→23:23)
[2017-07-15] MEDS: 0.9 % Sodium Chloride w KCl 20 MEQ/1,000 ML MLS IVC SCH ×4 (01:29→23:22)
[2017-07-15] MEDS ORDERED: *HR* OxyCODONE/APAP 5/325 TABLET PO PRN (02:10)
[2017-07-15] MEDS: Insulin LISPRO 300 UNITS/3 ML VIAL SQ SCH ×6 (02:51→23:23)
[2017-07-15] MEDS: *HR* HYDROmorphone (PF) 1 MG/ML SYRINGE IVP PRN ×4 (03:58→23:22)
[2017-07-15 05:21] LABS: Hematocrit 30.2 % (35.3-44.9); Hemoglobin 10.6 g/dL (11.5-15.4); Immature Platelets 2.6 % (1.1-6.1); Mean Corpuscular HGB Conc 35.1 g/dL (31.6-35.5); Mean Corpuscular Hemoglobin 30.8 pg (28.0-33.3); Mean Corpuscular Volume 87.8 fL (83.0-100.0); Mean Platelet Volume 9.7 fL (9.4-12.4); Red Blood Count 3.44 M/mcL (3.82-4.97); Red Cell Distribution Width 12.9 % (11.5-14.5)
[2017-07-15 05:31] LABS: BUN/Creatinine Ratio 12 (6-26); Blood Urea Nitrogen 9 mg/dL (7-20); Calcium 8.1 mg/dL (8.6-10.8); Carbon Dioxide 22 mEq/L (19-29); Chloride 107 mEq/L (98-109); Glucose 160 mg/dL (70-99); Osmolality,Calculated 284 (280-300); Potassium 3.6 mEq/L (3.5-4.5); Sodium 136 mEq/L (136-145); eGFR For African Americans > 60 (> 60); eGFR For Non-African Americans > 60 (> 60)
[2017-07-15] MEDS: *HR* Heparin 5,000 UNIT/ML VIAL SQ SCH ×2 (05:57→17:23)
[2017-07-15] MEDS: Pantoprazole 40 MG VIAL IVP SCH (09:11)
[2017-07-15] MEDS: Orphenadrine 100 MG TABLET.ER PO SCH ×2 (09:11→23:14)
[2017-07-15] MEDS: *HR* LORazepam 1 MG TABLET PO SCH ×3 (09:12→23:13)
--- NOTE | 2017-07-15 13:44 | General Surgery Progress Note ---
<Lilia Lane - Last Filed: 07/15/17 13:41> Date of Encounter: 07/15/17 Time of Encounter: 13:41 - Assessment and Plan (1) Abdominal pain Status: Acute Abdominal pain of unclear etiology. She reports to bowel movements yesterday. She states nausea and vomiting times for today. Her white count remains normal. There remains no urgent surgical intervention indicated. Surgery will sign off at this time. Thank you for allowing us to participate in Ms. Gaming's care. Please re consult surgery if questions or needs arise. Qualifiers: Abdominal location: epigastric Qualified Code(s): R10.13 - Epigastric pain Subjective Patient reports: still having pain, pain is less, tolerating liquids well, voiding w/o difficulty, flatus, bowel movement, nausea, vomiting, afebrile Objective Vital Signs - Last 8 Hours Temp Pulse Resp BP Pulse Ox 07/15/17 10:27 97.7 F 70 16 164/91 97 07/15/17 06:50 97.4 F L 72 16 147/89 98 Intake and Output 07/14/17 07/15/17 07/15/17 23:59 07:59 15:59 Intake Total 300 / 300 1300 / 1300 1000 / 1000 Balance 300 / 300 1300 / 1300 1000 / 1000 Intake: IV Fluids 300 / 300 1300 / 1300 1000 / 1000 KCl 20 mEq in 0.9% Sodium 1000 / 1000 1000 / 1000 Chloride 20 meq In 1,000 ml @ 150 mls/hr IVC .Q6H40M [facility] Rx#: [id number] Cipro Premix 400 MG/200 ML 400 200 / 200 200 / 200 mg In 200 ml @ 200 mls/hr IVPB Q12HR [facility] Rx#:[id number] Flagyl Premix 500 MG/100 ML 500 100 / 100 100 / 100 mg In 100 ml @ 100 mls/hr IVPB Q8HR [facility] Rx#:[id number] Other: Blood Glucose* 178 216 253 - General physical appearance no distress, other (Sititng upright, talking on phone, jello and soda at bedside ) - Eyes normal ocular movement - ENT atraumatic, normocephalic - Neck Neck exam: trachea midline, no venous distension - Respiratory normal expansion, normal respiratory effort, clear to auscultation - Cardiovascular Cardiovascular exam: Present: RRR, distant heart sounds, no murmurs/rubs/gallops - Abdomen Abdomen: Present: bowel sounds present, soft, tender Hernia: none - Integumentary no growths - Neurologic normal sensation - Musculoskeletal normal gait, normal posture - Psychiatric oriented to time, oriented to person, oriented to place, speech is normal, memory intact - Labs 07/15/17 05:00 07/15/17 05:00 Diabetes panel 07/14/17 07/15/17 Range/Units 16:16 05:00 Sodium 137 136 (136-145) mEq/L Potassium 3.7 3.6 (3.5-4.5) mEq/L Chloride 107 107 (98-109) mEq/L Carbon Dioxide 24 22 (19-29) mEq/L BUN 10 9 (7-20) mg/dL Creatinine 0.77 0.74 (0.57-1.11) mg/dL Glucose 141 H 160 H (70-99) mg/dL Calcium 8.3 L 8.1 L (8.6-10.8) mg/dL Calcium panel 07/14/17 07/15/17 Range/Units 16:16 05:00 Calcium 8.3 L 8.1 L (8.6-10.8) mg/dL Pituitary panel 07/14/17 07/15/17 Range/Units 16:16 05:00 Sodium 137 136 (136-145) mEq/L Potassium 3.7 3.6 (3.5-4.5) mEq/L Chloride 107 107 (98-109) mEq/L Carbon Dioxide 24 22 (19-29) mEq/L BUN 10 9 (7-20) mg/dL Creatinine 0.77 0.74 (0.57-1.11) mg/dL Glucose 141 H 160 H (70-99) mg/dL Calcium 8.3 L 8.1 L (8.6-10.8) mg/dL Adrenal panel 07/14/17 07/15/17 Range/Units 16:16 05:00 Sodium 137 136 (136-145) mEq/L Potassium 3.7 3.6 (3.5-4.5) mEq/L Chloride 107 107 (98-109) mEq/L Carbon Dioxide 24 22 (19-29) mEq/L BUN 10 9 (7-20) mg/dL Creatinine 0.77 0.74 (0.57-1.11) mg/dL Glucose 141 H 160 H (70-99) mg/dL Calcium 8.3 L 8.1 L (8.6-10.8) mg/dL Consult Discharge Plan - Plan Referrals: Marielena Baltaazr CNP [Advanced Practice Nurse] - 07/20/17 10:00 am Saira Luke CNP [Advanced Practice Nurse] - 07/19/17 10:30 am Domingo Humphrey DO [Primary Care Provider] - 07/27/17 1:30 pm <Reginaldo Wallace - Last Filed: 07/16/17 11:15> Date of Encounter: 07/16/17 Objective Vital Signs - Last 8 Hours Temp Pulse Resp BP Pulse Ox 07/16/17 06:15 97.9 F 67 16 185/94 99 Intake and Output 07/15/17 07/16/17 07/16/17 23:59 07:59 15:59 Intake Total 1300 / 1300 1100 / 1100 Balance 1300 / 1300 1100 / 1100 Intake: IV Fluids 1300 / 1300 1100 / 1100 KCl 20 mEq in 0.9% Sodium 1000 / 1000 1000 / 1000 Chloride 20 meq In 1,000 ml @ 150 mls/hr IVC .Q6H40M [facility] Rx#: [id number] Cipro Premix 400 MG/200 ML 400 200 / 200 mg In 200 ml @ 200 mls/hr IVPB Q12HR [facility] Rx#:[id number] Flagyl Premix 500 MG/100 ML 500 100 / 100 100 / 100 mg In 100 ml @ 100 mls/hr IVPB Q8HR [facility] Rx#:[id number] Other: Weight 85.413 kg Blood Glucose* 313 208 Patient Weight 07/16/17 23:59 Weight 85.413 kg - Labs 07/16/17 03:40 07/16/17 03:40 Diabetes panel 07/16/17 Range/Units 03:40 Sodium 138 (136-145) mEq/L Potassium 3.9 (3.5-4.5) mEq/L Chloride 108 (98-109) mEq/L Carbon Dioxide 23 (19-29) mEq/L BUN 7 (7-20) mg/dL Creatinine 0.76 (0.57-1.11) mg/dL Glucose 166 H (70-99) mg/dL Calcium 8.8 (8.6-10.8) mg/dL Calcium panel 07/16/17 Range/Units 03:40 Calcium 8.8 (8.6-10.8) mg/dL Pituitary panel 07/16/17 Range/Units 03:40 Sodium 138 (136-145) mEq/L Potassium 3.9 (3.5-4.5) mEq/L Chloride 108 (98-109) mEq/L Carbon Dioxide 23 (19-29) mEq/L BUN 7 (7-20) mg/dL Creatinine 0.76 (0.57-1.11) mg/dL Glucose 166 H (70-99) mg/dL Calcium 8.8 (8.6-10.8) mg/dL Adrenal panel 07/16/17 Range/Units 03:40 Sodium 138 (136-145) mEq/L Potassium 3.9 (3.5-4.5) mEq/L Chloride 108 (98-109) mEq/L Carbon Dioxide 23 (19-29) mEq/L BUN 7 (7-20) mg/dL Creatinine 0.76 (0.57-1.11) mg/dL Glucose 166 H (70-99) mg/dL Calcium 8.8 (8.6-10.8) mg/dL - Attending Attestation I have personally performed a face to face evaluation on this patient. I have reviewed and agree with the care plan. History and Exam by me shows: The patient is seen and evaluated. She does not appear to have any surgical cause for her symptoms. All testing to date is negative. We will sign off. Please reconsult for any clinical change it is concerning for general surgical issues thank you Reginaldo Wallace MD FACS
--- NOTE | 2017-07-15 15:45 | Internal Med Progress Note ---
Date of Encounter: 07/15/17 Time of Encounter: 10:30 - Assessment and plan (1) Colitis Current Visit: No Status: Acute Assessment and plan: Piedad Gaming is a 36-year-old female with past medical history type 1 diabetes , hypertension and anxiety who presented to [facility] on with complaints of abdominal pain. She was found to have uncontrolled blood sugar and colitis. She was admitted for further workup and treatment. 1. Colitis: presented with [place] pain that started morning of admission. Abdominal CT with slightly thick walled transverse colon, suggesting inflammation, no pericolonic and laboratory stranding or fluid, no evidence of obstruction. Afebrile, no elevated WBC. Continue IV Cipro and Flagyl started on admission. Evaluated by general surgery who noted no acute surgical intervention required this time. Patient complaining of worsening and severe abdominal pain on 07/15. Concern for malingering as she is requesting increase in pain medicine, IV Phenergan and Ativan. Continue current pain medication regimen. Repeat abdominal imaging pending. Continue to escalate diet as able. 2. Type 1 diabetes: Recently admitted with DKA. Blood sugar reading as high on home glucometer area and patient administered 45 units of insulin via her insulin pump without improvement blood sugar. Blood sugar over 500 on arrival, no evidence of DKA. Received subcutaneous insulin in the ED. Concerned insulin pump may be malfunctioning as she took large amount of insulin with no improvement blood sugar. Follows with Dr. Luke (endocrinology) left message with office. Continue every 4 hour Accu-Chek with high-dose sliding scale. Long-acting insulin added with improvement in blood sugar.. Monitor blood sugar and titrate PRN. 3. Anxiety: Per history. Takes Ativan at home; [place] reviewed on 07/14/17 the patient does have active Rx. Continue home Ativan. 4. DVT prophylaxis: Heparin (2) Diabetes mellitus type 1 with complications Current Visit: No Status: Chronic (3) Generalized anxiety disorder Current Visit: No Status: Chronic (4) Hypertension Current Visit: No Status: Chronic Qualifiers: Hypertension type: essential hypertension Qualified Code(s): I10 - Essential (primary) hypertension - Subjective Interval history: Seen and examined 3 times today. Patient still with 10 out of 10 abdominal pain. She states pain medicine is not helping. She is nauseated reports multiple emesis throughout the day. She is requesting Phenergan to be changed back to IV and would like an increase in pain medicine. Abdominal exam benign, no peritoneal signs. I am concerned for component malingering. Discussed case with Dr. Adames and will repeat abdominal imaging hold on further pain medicine escalation at this time. - Constitutional Vitals: Temp Pulse Resp BP Pulse Ox 97.9 F 69 16 152/81 100 07/15/17 14:43 07/15/17 14:43 07/15/17 14:43 07/15/17 14:43 07/15/17 14:43 General appearance: Present: A&O X 3, no acute distress, answers questions appropriately - Head Head exam: Present: atraumatic, normocephalic - Eye Eye exam: Present: PERRL, conjuntiva pink, sclera anicteric Pupils: Present: PERRL - Neck Neck exam general surgery: Present: supple, trachea midline. Absent: lymphadenopathy - Respiratory Respiratory exam: Present: CTAB. Absent: accessory muscle use, rales, rhonchi, wheezes - Cardiovascular Cardiovascular exam: Present: RRR, +S1, +S2. Absent: diastolic murmur, gallop, rubs, systolic murmur - GI/Abdominal GI/Abdominal exam: Present: normal bowel sounds, soft, tenderness, no peritoneal signs. Absent: distended - Extremities Exam Extremities exam: Present: warm, radial pulses palpable and symmetrical. Absent : calf tenderness, cyanotic, pedal edema - Neurological Exam Neurological exam: Present: CN II-XII intact, oriented X3, no focal deficits. Absent: pronater drift, facial droop, speech deficit - Skin Skin exam: Present: dry, intact Internal Medicine: Result - Labs CBC & Chem 7: 07/15/17 05:00 07/15/17 05:00 Labs: Short CBC 07/15/17 Range/Units 05:00 WBC 4.6 (4.3-11.1) K/mcL Hgb 10.6 L (11.5-15.4) g/dL Hct 30.2 L (35.3-44.9) % Plt Count 206 (140-400) K/mcL BMP 07/14/17 07/15/17 16:16 05:00 Sodium 137 136 Potassium 3.7 3.6 Chloride 107 107 Carbon Dioxide 24 22 BUN 10 9 Creatinine 0.77 0.74 Glucose 141 H 160 H Calcium 8.3 L 8.1 L Consult Discharge Plan - Plan Referrals: Marielena Baltazar CNP [Advanced Practice Nurse] - 07/20/17 10:00 am Saira Luke CNP [Advanced Practice Nurse] - 07/19/17 10:30 am Domingo Humphrey DO [Primary Care Provider] - 07/27/17 1:30 pm
[2017-07-15] MEDS: (Subcutaneous Insulin Pump [T:Slim] 1 EACH) MC SCH (23:14)
[2017-07-15] MEDS: Insulin DETEMIR 100 UNIT/ML X5UNITS SQ SCH (23:22)
[2017-07-15] MEDS ORDERED: Promethazine Syrup 6.25 MG/5 ML PO PRN (23:54)
[2017-07-16] MEDS: Insulin LISPRO 300 UNITS/3 ML VIAL SQ SCH ×3 (01:56→06:30)
[2017-07-16 03:53] LABS: Hematocrit 32.6 % (35.3-44.9); Hemoglobin 11.5 g/dL (11.5-15.4); Mean Corpuscular HGB Conc 35.3 g/dL (31.6-35.5); Mean Corpuscular Hemoglobin 30.9 pg (28.0-33.3); Mean Corpuscular Volume 87.6 fL (83.0-100.0); Mean Platelet Volume 9.8 fL (9.4-12.4); Platelet Count 200 K/mcL (140-400); Red Blood Count 3.72 M/mcL (3.82-4.97); Red Cell Distribution Width 12.9 % (11.5-14.5)
[2017-07-16 04:11] LABS: BUN/Creatinine Ratio 9 (6-26); Blood Urea Nitrogen 7 mg/dL (7-20); Calcium 8.8 mg/dL (8.6-10.8); Carbon Dioxide 23 mEq/L (19-29); Chloride 108 mEq/L (98-109); Glucose 166 mg/dL (70-99); Osmolality,Calculated 288 (280-300); Potassium 3.9 mEq/L (3.5-4.5); Sodium 138 mEq/L (136-145); eGFR For African Americans > 60 (> 60); eGFR For Non-African Americans > 60 (> 60)
[2017-07-16] MEDS: *HR* HYDROmorphone (PF) 1 MG/ML SYRINGE IVP PRN (04:12)
[2017-07-16] MEDS: *HR* Heparin 5,000 UNIT/ML VIAL SQ SCH (05:24)
[2017-07-16 06:20] VITALS: BP 185/94
[2017-07-16] MEDS: 0.9 % Sodium Chloride w KCl 20 MEQ/1,000 ML MLS IVC SCH (06:29)
--- NOTE | 2017-07-16 07:42 | Discharge Summary ---
Date of Encounter: 07/16/17 Time of Encounter: 07:32 - Discharge Diagnosis (1) Colitis Priority: Primary Status: Acute Comments: Piedad Gaming is a 36-year-old female with past medical history type 1 diabetes , hypertension and anxiety who presented to [facility] on with complaints of abdominal pain. She was found to have uncontrolled blood sugar and colitis. She was admitted for further workup and treatment. Patient left AMA on 07/16/2017 1. Colitis: presented with abdominal pain that started morning of admission. Abdominal CT with moderate colonic stool along transverse colon which appears slightly thick-walled for degree distention, suggesting inflammation; no evidence of obstruction. Afebrile, no elevated WBC. IV Cipro and Flagyl started on admission. Evaluated by general surgery who noted no acute surgical intervention required this time. Patient continued to report worsening and severe abdominal pain. Repeat ABD CT non-acute. Concern for malingering as she is requesting increase in pain medicine, IV Phenergan and Ativan. Patient removed right IJ CVC and left AMA on 07/16/2017 before she was seen and examined 2. Type 1 diabetes: Recently admitted with DKA. Blood sugar reading as high on home glucometer area and patient administered 45 units of insulin via her insulin pump without improvement blood sugar. Blood sugar over 500 on arrival, no evidence of DKA. Received subcutaneous insulin in the ED. Concerned insulin pump may be malfunctioning as she took large amount of insulin with no improvement blood sugar. Follows with Dr. Luke (endocrinology) left message with office. Continue every 4 hour Accu-Chek with high-dose sliding scale. Long-acting insulin added with improvement in blood sugar.. Monitor blood sugar and titrate PRN. Patient left AMA on 07/16/2017 3. Anxiety: Per history. Takes Ativan at home; OARRS reviewed on 07/14/17 the patient does have active Rx. Cont home Ativan. Patient left AMA on 07/16/2017 (2) Diabetes mellitus type 1 with complications Priority: Primary Status: Chronic (3) Generalized anxiety disorder Priority: Primary Status: Chronic - Discharge Medications Home Medications: Labetalol [Trandate] 100 mg PO BID 04/17/15 [History] Lisinopril [Zestril] 10 mg PO DAILY 04/17/15 [History] Albuterol Sulfate [Albuterol Inhaler] 2 puff IH Q4HR PRN 06/19/15 [History] LORazepam [Ativan] 2 mg PO TID 06/19/15 [History] Estradiol 2 mg PO DAILY 08/03/16 [History] Esomeprazole Magnesium [Nexium] 40 mg PO BID 08/23/16 [History] Rosuvastatin Calcium [Crestor] 10 mg PO DAILY 05/07/17 [History] Lidocaine Patch [Lidoderm 5% patch] 1 each TP DAILY #6 adh..patch 07/07/17 [Rx] Levomefolate/B6/B12/Algal Oil [Metanx Capsule] 1 tab PO BID 07/11/17 [History] Orphenadrine [Norflex] 100 mg PO Q12H 07/13/17 [History] Promethazine [Phenergan] 12.5 mg PO Q8H PRN 07/13/17 [History] Subcutaneous Insulin Pump [T:Slim] 1 each MC AD 07/13/17 [History] Allergies/Adverse Reactions: 3 Allergy/AdvReac Type Severity Reaction Status Date / Time Cortisone Allergy Anaphylaxis Verified 07/10/17 21:41 ketorolac [From Toradol] Allergy Anaphylaxis Verified 07/10/17 21:41 latex Allergy Hives Verified 07/10/17 21:41 metoclopramide [From Reglan] Allergy Anaphylaxis Verified 07/10/17 21:41 morphine Allergy Anaphylaxis Verified 07/10/17 21:41 tramadol [From Ultram] AdvReac Nausea Verified 07/10/17 21:41 Zolpidem [From Ambien] AdvReac Insomnia Verified 07/10/17 21:41 Procedures/tests Complete & Pending: Procedures Performed prior 72 hours Category Date Time Status CT abd pelvis wo no iv no oral [CT] Stat Cat Scan 07/13/17 20:[address] abd pelvis wo no iv no oral [CT] Stat Cat Scan 07/15/17 14:59 Completed Date of admission: 07/13/17 19:10 Primary care physician: Domingo Humphrey DO Consults: 07/14/17 11:51 Consult to Operations Program Manager [CONS] Routine Reason for SW Consult: re-admit 07/14/17 15:03 Consult to Surgery [CONS] Routine Consulting Provider: Surgery [facility] Reason for Consult: Abdominal pain. Abdominal CT suggestive of inflammation concerning for colitis Call Completed: Yes Discharging clinician: Es Wagner Anticipated date of discharge: 07/16/17 - Patient Status Disposition: Left Against Medical Advice Condition: Good Overall status at discharge: patient is back to baseline - Discharge Instructions Follow Up With: Marielena Baltazar CNP [Advanced Practice Nurse] - 07/20/17 10:00 am Saira Luke CNP [Advanced Practice Nurse] - 07/19/17 10:30 am Domingo Humphrey DO [Primary Care Provider] - 07/27/17 1:30 pm - Diet and Activity Activity: increase activity as tolerated Diet: advance to your usual diet Interval History: Patient left AMA on 07/16/2017 before seen and examined Hospital course: Ms. Gaming is a 36 year old female - Time Spent with Patient Total time spent providing and/or coordinating discharge services: - Constitutional Vitals: Temp Pulse Resp BP Pulse Ox 97.9 F 67 16 185/94 99 07/16/17 06:15 07/16/17 06:15 07/16/17 06:15 07/16/17 06:15 07/16/17 06:15 General appearance: Present: A&O X 3, no acute distress, answers questions appropriately
--- NOTE | 2017-07-16 18:29 | Electrocardiograph Report ---
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
== END 2017-07-16 07:45 | disposition left against medical advice (07) ==
LOC: 3BNU 15:34 → EMEROO 15:34 → 3BNU 20:05
PROVIDERS: ADMIT Internal Medicine; ATTEND Registered Nurse

== ENCOUNTER 2017-08-09 07:31 | Inpatient (IN) ==
[2017-08-09] MEDS ORDERED: *HR* Promethazine 25 MG/ML VIAL IVP ONE (07:46)
--- NOTE | 2017-08-09 07:53 | Emergency Department Note ---
Disposition Clinical Impression: Dehydration, Poorly controlled type 1 diabetes mellitus DKA (diabetic ketoacidoses) Qualifiers: Diabetes mellitus type: type 1 Diabetes mellitus complication detail: without coma Qualified Code(s): E10.10 - Type 1 diabetes mellitus with ketoacidosis without coma Disposition: Admitted As Inpatient Condition: Good Time of Disposition: 09:36 General Adult HPI - General Chief complaint: ED General Medical Stated complaint: hyperglycemia/disoriented Time Seen by Provider: 08/09/17 07:37 Source: patient Limitations: no limitations Nursing Notes Reviewed: Yes Vital Signs Reviewed: Yes - History of Present Illness HPI Narrative: 36-year-old female pack per day smoker, insulin-dependent diabetes mellitus presents with hyperglycemia. States over the past 24 hours her blood sugar levels have been reading high >600. POC glucose here >600. States yesterday after coming from the [facility] her blood sugar was 92 sometime later last night became elevated. She reports being on a sliding scale with her pump. She has some associated right upper quadrant abdominal pain, no radiation of pain. She had a similar episodes over month ago which required admission for similar complaints. At that time she was diagnosed with colitis but not in DKA. She reports tactile fever as well as some shortness of breath. No cough no sick contacts. She is nauseated. She has attempted insulin bolus 20 units but unable to bring sugars down. She does not suspect her insulin pump it is malfunctioning. She has had a insulin pump for 7 years. 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 Reports polyuria denies any dysuria. She has some mild right flank pain as well. History of cholecystectomy, appendectomy and hysterectomy. No recent alcohol use. Pain Scale: 9 - Related Data Home Medications Medication Instructions Recorded Confirmed Lisinopril [Zestril] 10 mg PO DAILY 04/17/15 08/09/17 Albuterol Sulfate [Albuterol 2 puff IH Q4HR PRN 06/19/15 08/09/17 Inhaler] LORazepam [Ativan] 2 mg PO TID 06/19/15 08/09/17 Estradiol 2 mg PO DAILY 08/03/16 08/09/17 Esomeprazole Magnesium [Nexium] 40 mg PO BID 08/23/16 08/09/17 Levomefolate/B6/B12/Algal Oil 1 tab PO BID 07/11/17 08/09/17 [Metanx Capsule] Orphenadrine [Norflex] 100 mg PO Q12H 07/13/17 08/09/17 Promethazine [Phenergan] 12.5 mg PO Q8H PRN 07/13/17 08/09/17 Subcutaneous Insulin Pump [T:Slim] 1 each MC AD 07/13/17 08/09/17 FLUoxetine HCl [Prozac] 40 mg PO Q48H 08/09/17 08/09/17 FLUoxetine HCl [Prozac] 80 mg PO Q48H 08/09/17 08/09/17 Gabapentin [Neurontin] 800 mg PO TID 08/09/17 08/09/17 Quetiapine Fumarate [SEROquel] 25 - 50 mg PO HS 08/09/17 08/09/17 Rosuvastatin [Crestor] 20 mg PO QPM 08/09/17 08/09/17 lamoTRIgine [Lamictal] 100 mg PO QAM 08/09/17 08/09/17 lamoTRIgine [Lamictal] 300 mg PO HS 08/09/17 08/09/17 Allergies Allergy/AdvReac Type Severity Reaction Status Date / Time Cortisone Allergy Anaphylaxis Verified 07/10/17 21:41 ketorolac [From Toradol] Allergy Anaphylaxis Verified 07/10/17 21:41 latex Allergy Hives Verified 07/10/17 21:41 metoclopramide [From Reglan] Allergy Anaphylaxis Verified 07/10/17 21:41 tramadol [From Ultram] AdvReac Nausea Verified 07/10/17 21:41 Zolpidem [From Ambien] AdvReac Insomnia Verified 07/10/17 21:41 All systems ED: reviewed and negative except as stated. Review of Systems: As Per HPI Constitutional: Reports: fever. Denies: chills ENT ED: Denies: congestion, dysphagia Cardiovascular: Denies: chest pain, dyspnea on exertion Respiratory: Reports: dyspnea. Denies: cough Gastrointestinal: Reports: abdominal pain, nausea. Denies: vomiting, diarrhea Genitourinary: Denies: urgency, dysuria Musculoskeletal: Reports: back pain. Denies: neck pain Integumentary: Denies: rash, abrasion Neurological: Denies: headache, weakness Endocrine: Reports: fatigue, polydipsia, polyuria Past Medical History - Past Medical History Attestation: Yes The following information was validated with the patient. 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 Absent: scleral icterus - ENT ENT exam: normal exam, normal oropharynx, mucous membranes dry - Neck Neck exam: Present: normal inspection, full ROM, trachea midline - Chest Chest inspection: Present: normal inspection, symmetric chest wall rise. Absent : tenderness, rash - Respiratory Respiratory exam: Present: normal lung sounds bilaterally. Absent: respiratory distress, wheezes - Cardiovascular Cardiovascular exam: Present: regular rate, normal rhythm, normal heart sounds - Abdominal Exam Abdominal exam: Present: soft, tenderness, normal bowel sounds, other (scars from prior surgeries consistent with laporatomy). Absent: Non-Tender, distention, guarding, rebound, rigidity, Wiley's sign, tenderness at McBurney' s Point Abdominal tenderness: Present: RUQ - Extremities Exam Extremities exam: Present: normal inspection, full ROM, normal capillary refill. Absent: tenderness, pedal edema, calf tenderness - Back Exam Back exam: Present: normal inspection, full ROM, CVA tenderness (R). Absent: tenderness, CVA tenderness (L) - Neurological Exam Neurological exam: Present: alert, oriented X3, normal gait - Psychiatric Psychiatric exam: Present: normal affect, normal mood - Skin Skin exam: Present: warm, dry, intact, normal color. Absent: rash, cyanosis, diaphoresis Course Course Narrative: 36-year-old female presents with hyperglycemia for past 2 days. Concern for diabetic ketoacidosis. She has some abdominal pain, recent diagnosis of colitis. Also obtain a flu swap she has been feeling tactile fevers and chills with associated nausea. - Reevaluation(s) Reevaluation #1: Critical lab glucose 1098. Patient has been given 2 L normal saline bolus. Her anionic gap is 15. VBG shows a pH of 7.33. Bicarb 22. Will place on insulin drip of 0.1 U/kg/hr and bolus. Continue to monitor labs and recheck K. Her serum ketones elevated 0.73. She remains alert and oriented to person place and time. No confusion. Treat for mild diabetic ketoacidosis versus HHS and uncontrolled type I diabetes mellitus. Time: 08:23 Reevaluation #2: Her last glucose 815. She remains on insulin drip with pump disconnected. Repeat BMP ordered. Flu swab is negative. CXR is unremarkable. CT of abdomen and pelvis is unremarkable for any acute abdominal abnormality. Will need admission for DKA and uncontrolled T1DM. Time: 10:13 - Consultations Consultation #1: Spoke with on-call hospitalist raheel Brunner to admit for DKA and uncontrolled T1DM. No further orders at this time Time: 10:26 Vital Signs Temperature 97.5 F L 08/09/17 07:32 Pulse Rate 112 08/09/17 07:32 Respiratory Rate 15 08/09/17 07:32 Blood Pressure 135/82 08/09/17 07:32 O2 Sat by Pulse Oximetry 99 08/09/17 07:32 Temperature 99.0 F 08/09/17 12:05 Pulse Rate 94 08/09/17 12:29 Respiratory Rate 14 08/09/17 12:05 Blood Pressure 140/88 08/09/17 12:05 O2 Sat by Pulse Oximetry 97 08/09/17 12:05 Oxygen Delivery Oxygen Delivery Room Air Medical Decision Making - MDM Narrative Medical decision making narrative: Patient was discussed with my attending physician who agrees with ED management and final disposition. They independently evaluated the patient. Please refer to their attestation to this encounter for additional information. This note was generated by [employer] voice recognition software and as a result grammatical or spelling errors may occur using this program. - Medical Records Medical records reviewed: Yes I reviewed the patient's medical records. - Lab Data Lab results reviewed: Yes I reviewed the patient's lab results. Result diagrams: 08/09/17 07:51 08/09/17 10:38 Lab Results 08/09/17 08/09/17 08/09/17 Range/Units 07:51 07:51 07:51 WBC 5.8 (4.3-11.1) K/mcL RBC 4.03 (3.82-4.97) M/mcL Hgb 12.4 (11.5-15.4) g/dL Hct 36.0 (35.3-44.9) % MCV 89.3 (83.0-100.0) fL MCH 30.8 (28.0-33.3) pg MCHC 34.4 (31.6-35.5) g/dL RDW 12.1 (11.5-14.5) % Plt Count 164 (140-400) K/mcL MPV 10.9 (9.4-12.4) fL Immature Gran % 0.3 (0-4) % Seg Neutrophils % 71.1 % Lymphocytes % 19.3 % Monocytes % 6.0 % Eosinophils % 2.8 % Basophils % 0.5 % Neutrophils # 4.1 (1.6-8.9) K/mcL Lymphocytes # 1.1 (0.6-4.6) K/mcL Monocytes # 0.4 (0.0-1.3) K/mcL Eosinophils # 0.2 (0.0-0.6) K/mcL Basophils # 0.0 (0.0-0.2) K/mcL VBG pH (7.32-7.42) pH Units VBG pCO2 (41-51) mmHg VBG pO2 (25-50) mmHg VBG HCO3 (21-27) mEq/L Sodium 123 L (136-145) mEq/L Potassium 4.7 H (3.5-4.5) mEq/L Chloride 89 L (98-109) mEq/L Carbon Dioxide 19 (19-29) mEq/L BUN 21 H (7-20) mg/dL Creatinine 1.65 H (0.57-1.11) mg/dL Est GFR ( Amer) 43 L (> 60) Est GFR (Non-Af Amer) 35 L (> 60) BUN/Creatinine Ratio 13 (6-26) Glucose 1098 H* (70-99) mg/dL POC Glucose (58-89) Calculated Osmolality 315 H (280-300) Calcium 9.1 (8.6-10.8) mg/dL Total Bilirubin 0.7 (0.2-1.2) mg/dL AST 269 H (5-34) Units/L ALT 171 H (0-55) Units/L Alkaline Phosphatase 235 H (38-126) Units/L Serum Total Protein 7.6 (6.0-8.3) g/dL Albumin 3.6 (3.5-5.0) g/dL Globulin 4.0 H (2.4-3.5) g/dL Albumin/Globulin Ratio 0.9 L (1.1-2.2) Lipase 13 (8-78) Units/L Beta-Hydroxybutyric Acd 0.73 H (0.02-0.27) mmol/L Urine Color (Yellow) Urine Clarity (Clear) Urine pH (5.0-8.0) pH Units Ur Specific Zeph[place] (1.010-1.025) Urine Protein (Neg-Trace) mg/dL Urine Glucose (UA) (Normal) mg/dL Urine Ketones (Negative) mg/dL Urine Blood (Negative) Urine Nitrite (Negative) Urine Bilirubin (Negative) Urine Urobilinogen (Normal) mg/dL Ur Leukocyte Esterase (Negative) Ur Culture Indicated? (NO) Urine Test (Negative) 08/09/17 08/09/17 08/09/17 Range/Units 08:00 08:00 08:03 WBC (4.3-11.1) K/mcL RBC (3.82-4.97) M/mcL Hgb (11.5-15.4) g/dL Hct (35.3-44.9) % MCV (83.0-100.0) fL MCH (28.0-33.3) pg MCHC (31.6-35.5) g/dL RDW (11.5-14.5) % Plt Count (140-400) K/mcL MPV (9.4-12.4) fL Immature Gran % (0-4) % Seg Neutrophils % % Lymphocytes % % Monocytes % % Eosinophils % % Basophils % % Neutrophils # (1.6-8.9) K/mcL Lymphocytes # (0.6-4.6) K/mcL Monocytes # (0.0-1.3) K/mcL Eosinophils # (0.0-0.6) K/mcL Basophils # (0.0-0.2) K/mcL VBG pH 7.33 (7.32-7.42) pH Units VBG pCO2 41 (41-51) mmHg VBG pO2 122 H (25-50) mmHg VBG HCO3 22 (21-27) mEq/L Sodium (136-145) mEq/L Potassium (3.5-4.5) mEq/L Chloride (98-109) mEq/L Carbon Dioxide (19-29) mEq/L BUN (7-20) mg/dL Creatinine (0.57-1.11) mg/dL Est GFR ( Amer) (> 60) Est GFR (Non-Af Amer) (> 60) BUN/Creatinine Ratio (6-26) Glucose (70-99) mg/dL POC Glucose (58-89) Calculated Osmolality (280-300) Calcium (8.6-10.8) mg/dL Total Bilirubin (0.2-1.2) mg/dL AST (5-34) Units/L ALT (0-55) Units/L Alkaline Phosphatase (38-126) Units/L Serum Total Protein (6.0-8.3) g/dL Albumin (3.5-5.0) g/dL Globulin (2.4-3.5) g/dL Albumin/Globulin Ratio (1.1-2.2) Lipase (8-78) Units/L Beta-Hydroxybutyric Acd (0.02-0.27) mmol/L Urine Color Yellow (Yellow) Urine Clarity Clear (Clear) Urine pH 6.5 (5.0-8.0) pH Units Ur Specific [place]ph[place] 1.021 (1.010-1.025) Urine Protein Negative (Neg-Trace) mg/dL Urine Glucose (UA) >=1000 H (Normal) mg/dL Urine Ketones Negative (Negative) mg/dL Urine Blood Negative (Negative) Urine Nitrite Negative (Negative) Urine Bilirubin Negative (Negative) Urine Urobilinogen Normal (Normal) mg/dL Ur Leukocyte Esterase Negative (Negative) Ur Culture Indicated? NO (NO) Urine Test Negative (Negative) 08/09/17 08/09/17 08/09/17 Range/Units 08:13 09:32 09:33 WBC (4.3-11.1) K/mcL RBC (3.82-4.97) M/mcL Hgb (11.5-15.4) g/dL Hct (35.3-44.9) % MCV (83.0-100.0) fL MCH (28.0-33.3) pg MCHC (31.6-35.5) g/dL RDW (11.5-14.5) % Plt Count (140-400) K/mcL MPV (9.4-12.4) fL Immature Gran % (0-4) % Seg Neutrophils % % Lymphocytes % % Monocytes % % Eosinophils % % Basophils % % Neutrophils # (1.6-8.9) K/mcL Lymphocytes # (0.6-4.6) K/mcL Monocytes # (0.0-1.3) K/mcL Eosinophils # (0.0-0.6) K/mcL Basophils # (0.0-0.2) K/mcL VBG pH (7.32-7.42) pH Units VBG pCO2 (41-51) mmHg VBG pO2 (25-50) mmHg VBG HCO3 (21-27) mEq/L Sodium (136-145) mEq/L Potassium (3.5-4.5) mEq/L Chloride (98-109) mEq/L Carbon Dioxide (19-29) mEq/L BUN (7-20) mg/dL Creatinine (0.57-1.11) mg/dL Est GFR ( Amer) (> 60) Est GFR (Non-Af Amer) (> 60) BUN/Creatinine Ratio (6-26) Glucose (70-99) mg/dL POC Glucose > 600 H* > 600 H* > 600 H* (58-89) Calculated Osmolality (280-300) Calcium (8.6-10.8) mg/dL Total Bilirubin (0.2-1.2) mg/dL AST (5-34) Units/L ALT (0-55) Units/L Alkaline Phosphatase (38-126) Units/L Serum Total Protein (6.0-8.3) g/dL Albumin (3.5-5.0) g/dL Globulin (2.4-3.5) g/dL Albumin/Globulin Ratio (1.1-2.2) Lipase (8-78) Units/L Beta-Hydroxybutyric Acd (0.02-0.27) mmol/L Urine Color (Yellow) Urine Clarity (Clear) Urine pH (5.0-8.0) pH Units Ur Specific [place] (1.010-1.025) Urine Protein (Neg-Trace) mg/dL Urine Glucose (UA) (Normal) mg/dL Urine Ketones (Negative) mg/dL Urine Blood (Negative) Urine Nitrite (Negative) Urine Bilirubin (Negative) Urine Urobilinogen (Normal) mg/dL Ur Leukocyte Esterase (Negative) Ur Culture Indicated? (NO) Urine Test (Negative) 08/09/17 Range/Units 09:44 WBC (4.3-11.1) K/mcL RBC (3.82-4.97) M/mcL Hgb (11.5-15.4) g/dL Hct (35.3-44.9) % MCV (83.0-100.0) fL MCH (28.0-33.3) pg MCHC (31.6-35.5) g/dL RDW (11.5-14.5) % Plt Count (140-400) K/mcL MPV (9.4-12.4) fL Immature Gran % (0-4) % Seg Neutrophils % % Lymphocytes % % Monocytes % % Eosinophils % % Basophils % % Neutrophils # (1.6-8.9) K/mcL Lymphocytes # (0.6-4.6) K/mcL Monocytes # (0.0-1.3) K/mcL Eosinophils # (0.0-0.6) K/mcL Basophils # (0.0-0.2) K/mcL VBG pH (7.32-7.42) pH Units VBG pCO2 (41-51) mmHg VBG pO2 (25-50) mmHg VBG HCO3 (21-27) mEq/L Sodium (136-145) mEq/L Potassium (3.5-4.5) mEq/L Chloride (98-109) mEq/L Carbon Dioxide (19-29) mEq/L BUN (7-20) mg/dL Creatinine (0.57-1.11) mg/dL Est GFR ( Amer) (> 60) Est GFR (Non-Af Amer) (> 60) BUN/Creatinine Ratio (6-26) Glucose 815 H* (70-99) mg/dL POC Glucose (58-89) Calculated Osmolality (280-300) Calcium (8.6-10.8) mg/dL Total Bilirubin (0.2-1.2) mg/dL AST (5-34) Units/L ALT (0-55) Units/L Alkaline Phosphatase (38-126) Units/L Serum Total Protein (6.0-8.3) g/dL Albumin (3.5-5.0) g/dL Globulin (2.4-3.5) g/dL Albumin/Globulin Ratio (1.1-2.2) Lipase (8-78) Units/L Beta-Hydroxybutyric Acd (0.02-0.27) mmol/L Urine Color (Yellow) Urine Clarity (Clear) Urine pH (5.0-8.0) pH Units Ur Specific [place]ph[place] (1.010-1.025) Urine Protein (Neg-Trace) mg/dL Urine Glucose (UA) (Normal) mg/dL Urine Ketones (Negative) mg/dL Urine Blood (Negative) Urine Nitrite (Negative) Urine Bilirubin (Negative) Urine Urobilinogen (Normal) mg/dL Ur Leukocyte Esterase (Negative) Ur Culture Indicated? (NO) Urine Test (Negative) - Radiology Data Radiology results reviewed: Yes I reviewed the patient's radiology results. Chest X-Ray 08/09/17 07:44 IMPRESSION: No evidence for acute cardiopulmonary process. D/ / Kirs Mac MD / Kris Mac MD Interpreting Provider: Kris Mac MD Abdomen/Pelvis CT 08/09/17 07:50 IMPRESSION: 1. No acute process demonstrated 2. Status post cholecystectomy, hysterectomy, appendectomy D/ / Christ Cervantes MD / Christ Cervantes MD Interpreting Provider: Christ Cervantes MD - EKG Data EKG #1 EKG attestation: Yes I reviewed and interpreted this EKG. EKG results narrative: EKG performed 816 sinus tachycardia 10 6 bpm, normal axis, no ST elevations or depressions, no T wave inversion. No hyperacute T waves. Intervals are within normal limits MD interval 152 QRS 102 QT QTC 347 409. Paired old EKG performed 07/16/2017 shows normal sinus rhythm 77 bpm similar consistent findings. No acute ischemic changes. Attestation Statement - Attestation Attestation: I examined this patient and my medical decision-making was reviewed with the Resident Physician. I agree with the documented findings, disposition and treatment plan as described except to the extent set forth below. Patient presents to the emergency department with high blood sugar. She states is been high for 24 hours. States she has an insulin pump. She states she removed it has been bolusing herself was still cannot get it down. Recent admission a few weeks ago for the same. Patient appears in no distress. She is tachycardic with dry mucous membranes. Some right upper abdominal tenderness. Plan. DKA workup. Patient with elevated creatinine. Mild increase in her anion gap. We will start IV insulin and admit. 40 minutes of critical care exclusive of separately billable procedures.
[2017-08-09 08:05] LABS: VBG HCO3 22 mEq/L (21-27); VBG PCO2 41 mmHg (41-51); VBG PH 7.33 pH Units (7.32-7.42); VBG PO2 122 mmHg (25-50)
[2017-08-09] MEDS: 0.9 % Sodium Chloride 1,000 ML IVC ONE ×2 (08:09→09:41)
[2017-08-09] MEDS ORDERED: *HR* HYDROmorphone (PF) 1 MG/ML SYRINGE IVP ONE (08:10)
[2017-08-09 08:11] LABS: Albumin 3.6 g/dL (3.5-5.0); Albumin/Globulin Ratio 0.9 (1.1-2.2); Bilirubin,Total 0.7 mg/dL (0.2-1.2); Calcium 9.1 mg/dL (8.6-10.8); Potassium 4.7 mEq/L (3.5-4.5); Total Protein 7.6 g/dL (6.0-8.3)
[2017-08-09 08:21] LABS: Bilirubin,Urine Negative (Negative); Blood,Urine Negative (Negative); Clarity,Urine Clear (Clear); Color,Urine Yellow (Yellow); Glucose,Urine (UA) >=1000 mg/dL (Normal); Ketones,Urine Negative (Negative); Leukocyte Esterase,Urine Negative (Negative); Nitrite,Urine Negative (Negative); PH,Urine 6.5 pH Units (5.0-8.0); Protein,Urine Negative (Neg-Trace); Specific Gravity,Urine 1.021 (1.010-1.025); Urobilinogen,Urine Normal (Normal)
[2017-08-09] MEDS ORDERED: *HR* Dextrose 50 % in Water (Syg) 50 ML SYRINGE IVP PRN (08:24)
[2017-08-09 08:27] LABS: Basophils % 0.5 %; Eosinophils # 0.2 K/mcL (0.0-0.6); Eosinophils % 2.8 %; Hemoglobin 12.4 g/dL (11.5-15.4); Immature Granulocytes % 0.3 % (0-4); Lymphocytes # 1.1 K/mcL (0.6-4.6); Lymphocytes % 19.3 %; Mean Corpuscular HGB Conc 34.4 g/dL (31.6-35.5); Mean Corpuscular Hemoglobin 30.8 pg (28.0-33.3); Mean Corpuscular Volume 89.3 fL (83.0-100.0); Mean Platelet Volume 10.9 fL (9.4-12.4); Monocytes # 0.4 K/mcL (0.0-1.3); Neutrophils # 4.1 K/mcL (1.6-8.9); Platelet Count 164 K/mcL (140-400); Red Blood Count 4.03 M/mcL (3.82-4.97); Red Cell Distribution Width 12.1 % (11.5-14.5); Segmented Neutrophils % 71.1 %
[2017-08-09] MEDS ORDERED: Insulin Human Regular 100 UNIT in 0.9 % Sodium Chloride 100 ML IVC SCH (08:30)
[2017-08-09] MEDS ORDERED: Insulin Regular, Human 100 UNIT/ML IV ONE (08:37)
[2017-08-09] MEDS ORDERED: 0.9 % Sodium Chloride 1,000 ML ONE ×2 (09:05→11:27)
[2017-08-09 10:59] LABS: Calcium 8.9 mg/dL (8.6-10.8); Potassium 3.9 mEq/L (3.5-4.5)
[2017-08-09] MEDS ORDERED: *HR* HYDROcodone/Acet 5/325 mg TABLET PO PRN ×2 (11:32→14:42)
[2017-08-09] MEDS ORDERED: Naloxone 0.4 MG/ML INJ IVP PRN (11:32)
[2017-08-09] MEDS ORDERED: Ondansetron 4 MG/2 ML VIAL IVP PRN (11:32)
[2017-08-09] MEDS ORDERED: Acetaminophen 325 MG TABLET PO PRN (11:32)
[2017-08-09] MEDS ORDERED: FLUoxetine 20 MG CAPSULE PO SCH (11:45)
[2017-08-09] MEDS ORDERED: Ipratropium/Albuterol Neb 3 ML IH PRN (11:56)
[2017-08-09 11:58] LABS: Albumin 3.2 g/dL (3.5-5.0); Magnesium 1.6 mg/dL (1.6-2.6); Phosphorous 1.3 mg/dL (2.3-4.7)
--- NOTE | 2017-08-09 12:06 | Internal Med History&Physical ---
Date of Encounter: 08/09/17 Time of Encounter: 10:30 Assessment and Plan (1) DKA (diabetic ketoacidoses) Current visit: Yes Status: Acute Acute DKA w/o coma. Pt. is diabetic w/insulin pump for control. Glucose level 1098 in ED. Beta-hydroxybutyric acid 0.73. GFR 35. Creatinine 1.65. Pt. received insulin bolus in ED followed by insulin drip which we will continue. NPO for now. IV fluids w/20 mEq for potassium. BMP Q4HR. Pt. reports abdominal and bilateral flank pain w/current sx. Stair-step pain medication for pain mgmt. Pt. discussed w/Dr. Grier who is in agreement w/plan of care. Pt. is at high risk for further morbidity d/t current sx, hx of DKA, and risk factors. Inpatient. Qualifiers: Diabetes mellitus type: type 1 Diabetes mellitus complication detail: without coma Qualified Code(s): E10.10 - Type 1 diabetes mellitus with ketoacidosis without coma (2) Acute kidney injury Current visit: Yes Status: Acute UMM most likely d/t dehydration r/t N/V/D/Fever. IV fluids for hydration and will avoid nephrotoxic agents. Monitor pt. and f/u labs. (3) Back pain Current visit: Yes Status: Acute Acute bilateral flank pain that pt. states began yesterday which is most likely d/t DKA. Patient reports history of kidney stones but CT of the abdomen/pelvis today shows no acute process. Stair-step pain medications for pain mgmt. Qualifiers: Back pain location: low back pain Chronicity: acute Back pain laterality : midline Sciatica presence: without sciatica Qualified Code(s): M54.5 - Low back pain (4) Abdominal pain Current visit: Yes Status: Acute Acute abdominal pain in RUQ that pt. states began yesterday. CT of abdomen/ pelvis today shows no acute process demonstrated. Status post cholecystectomy, hysterectomy, and appendectomy. Stair-step pain medications for pain mgmt. Pt. reports N/V/D/Fever on Wednesday which has resolved. Continue pts. Phenergan and Nexium. Qualifiers: Abdominal location: epigastric Qualified Code(s): R10.13 - Epigastric pain (5) Asthma Current visit: Yes Status: Chronic Hx of chronic mild, intermittent asthma. Continue pts. inhalers. Supplemental O2 w/SpO2 monitoring. DuoNebs Q6 PRN. Qualifiers: Asthma severity: mild Asthma persistence: intermittent Asthma complication type: uncomplicated Qualified Code(s): J45.20 - Mild intermittent asthma, uncomplicated (6) GERD (gastroesophageal reflux disease) Current visit: Yes Status: Chronic Hx of chronic GERD. Continue pts. by mouth Phenergan and Nexium. Qualifiers: Esophagitis presence: esophagitis presence not specified Qualified Code(s) : K21.9 - Gastro-esophageal reflux disease without esophagitis (7) HLD (hyperlipidemia) Current visit: Yes Status: Chronic Hx of chronic HLD. Lipid panel in a.m. labs. Continue pts. Crestor. Qualifiers: Hyperlipidemia type: pure hypercholesterolemia Qualified Code(s): E78.00 - Pure hypercholesterolemia, unspecified; E78.0 - Pure hypercholesterolemia (8) HTN (hypertension) Current visit: Yes Status: Chronic Hx of chronic HTN. Monitor pt. and VS. Continue pts. lisinopril. Qualifiers: Hypertension type: essential hypertension Qualified Code(s): I10 - Essential (primary) hypertension (9) Tobacco abuse Current visit: Yes Status: Chronic Hx of chronic tobacco abuse. Pt. reports smoking 1/2 PPD w/no intent to quit at this time. Denies need for nicotine patch. (10) DVT prophylaxis Current visit: Yes Status: Acute Heparin 5,000 units SQ Q8 for DVT prophylaxis. Monitor pt. for signs of bleeding. Internal Medicine - H&P: HPI Chief complaint: Hyperglycemia/Abdominal pain Admitted From: Emergency Dept Plans for Post Hospital Care: Home History of present illness: Ms. Gaming is a 36 year old female with medical history of asthma, diabetes controlled by insulin pump, GERD, HLD, and HTN presents from the ED with chief complaint of hyperglycemia (BG readings >600) and bilateral flank and abdominal pain since yesterday. Pt. reports nausea, vomiting, diarrhea, and fever which lasted for 24 hours. Pt. also reports chest congestion, SOB, and cough w/yellow/ green sputum production for the past 3-4 days. Pt. denies recent illness, headache, changes in vision, chest pain, palpitations, numbness, tingling, unusual bleeding, constipation, dizziness, lightheadedness, pre-syncope, or syncope. Patient states nausea, vomiting, diarrhea, and fever have resolved. Past Med Surg Social Fam HX - Past Medical History Source: patient, old records reviewed Medical history: asthma, diabetes (Controlled by insulin pump), GERD, hyperlipidemia, hypertension, other Psychiatric history: anxiety, depression, panic disorder - Past Surgical History Surgical History: appendectomy, cholecystectomy, hysterectomy, knee replacement (Left), other (Zach in right shoulder/arm) - Social History Smoking Status: Current every day smoker Packs per day: 1/2 PPD Smokeless Tobacco Status: No Alcohol use: none Drug use: none Current living situation: Home, With Family Activity Level: Independent ambulation Recent Out of Country Travel Within the Last 8 Weeks: No Exposure or Possible Exposure to Illness During Travel: No - Family History Mother Race: Family Member Ethnicity: Non- Living Status: Still Living Hx Family Cardiac Disorders: Yes (HTN, HLD) Hx Family Respiratory Disorders: Yes (Asthma) Father Race: Family Member Ethnicity: Non- Living Status: Still Living Hx Family Cardiac Disorders: Yes (HTN, HLD) Hx Family Endocrine Disorder: Yes (Cirrhosis) Hx Family Musculoskeletal Disorders: Yes (Ankylosing spondylitis) Hx Family Autoimmune Disorders: Yes (Alkylosing Spondylitis) Brother Race: Family Member Ethnicity: Non- Living Status: Still Living Hx Family Endocrine Disorder: Yes (Pancreatitis, Cirrhosis) Sister Race: Family Member Ethnicity: Non- Living Status: Still Living Hx Family Musculoskeletal Disorders: Yes (Ankylosing spondylitis) Grandfather Race: Family Member Ethnicity: Non- Living Status: Age at : 70 Cause of : NH Hx Family Cardiac Disorders: Yes (NH, Stroke) Hx Family Endocrine Disorder: Yes (DM) Internal Medicine - H&P: Meds Lisinopril [Zestril] 10 mg PO DAILY 04/17/15 [History] Albuterol Sulfate [Albuterol Inhaler] 2 puff IH Q4HR PRN 06/19/15 [History] LORazepam [Ativan] 2 mg PO TID 06/19/15 [History] Estradiol 2 mg PO DAILY 08/03/16 [History] Esomeprazole Magnesium [Nexium] 40 mg PO BID 08/23/16 [History] Levomefolate/B6/B12/Algal Oil [Metanx Capsule] 1 tab PO BID 07/11/17 [History] Orphenadrine [Norflex] 100 mg PO Q12H 07/13/17 [History] Promethazine [Phenergan] 12.5 mg PO Q8H PRN 07/13/17 [History] Subcutaneous Insulin Pump [T:Slim] 1 each MC AD 07/13/17 [History] FLUoxetine HCl [Prozac] 40 mg PO Q48H 08/09/17 [History] FLUoxetine HCl [Prozac] 80 mg PO Q48H 08/09/17 [History] Gabapentin [Neurontin] 800 mg PO TID 08/09/17 [History] Quetiapine Fumarate [SEROquel] 25 - 50 mg PO HS 08/09/17 [History] Rosuvastatin [Crestor] 20 mg PO QPM 08/09/17 [History] lamoTRIgine [Lamictal] 100 mg PO QAM 08/09/17 [History] lamoTRIgine [Lamictal] 300 mg PO HS 08/09/17 [History] 3 Allergy/AdvReac Type Severity Reaction Status Date / Time Cortisone Allergy Anaphylaxis Verified 07/10/17 21:41 ketorolac [From Toradol] Allergy Anaphylaxis Verified 07/10/17 21:41 latex Allergy Hives Verified 07/10/17 21:41 metoclopramide [From Reglan] Allergy Anaphylaxis Verified 07/10/17 21:41 tramadol [From Ultram] AdvReac Nausea Verified 07/10/17 21:41 Zolpidem [From Ambien] AdvReac Insomnia Verified 07/10/17 21:41 All Systems PM: A 10-system review of systems was performed and is negative for pertinent findings except as documented above in the HPI. - Constitutional Constitutional: as per HPI, chills, fever(s), weakness, no night sweats - EENT Eyes: no change in vision, no discharge, no pain, no photophobia Ears: no ear discharge, no ear pain, no tinnitus Nose, mouth and throat: no dysphagia, no nasal discharge, no neck pain, no sore throat - Breasts Breasts: as per HPI - Cardiovascular Cardiovascular ROS IM: dyspnea, dyspnea on exertion, no chest pain, no diaphoresis, no lightheadedness, no palpitations, no syncope - Respiratory Respiratory: cough, dyspnea, dyspnea on exertion, chest congestion, change in phlegm color, no wheezing, no excessive phlegm production - Gastrointestinal Gastrointestinal: as per HPI, abdominal pain (RUQ), diarrhea, nausea, vomiting - Genitourinary Genitourinary: as per HPI, urinary frequency, no change in urinary stream, no dysuria, no flank pain, no hematuria Menstruation: as per HPI, post hysterectomy - Musculoskeletal Musculoskeletal ROS IM: no numbness, no tingling - Integumentary Integumentary IM: no rash, no unusual bruising - Neurological Neurological ROS: no confusion, no convulsions, no focal weakness, no numbness, no tingling, no tremor(s) - Psychiatric Psychiatric: as per HPI, anxiety, depression, panic attacks - Endocrine Endocrine IM: as per HPI - Hematologic/Lymphatic Hematologic/Lymphatic: no easy bruising - Allergic/Immunologic Allergic/Immunologic: as per HPI - Constitutional Vitals: Temp Pulse Resp BP Pulse Ox 97.5 F L 104 18 126/68 98 08/09/17 07:32 08/09/17 10:48 08/09/17 10:48 08/09/17 10:48 08/09/17 10:48 General appearance: Present: cooperative, mild distress, A&O X 3, pleasant, obese, answers questions appropriately - Head Head exam: Present: atraumatic, normal inspection, normocephalic - Eye Eye exam: Present: PERRL, conjuntiva pink, sclera anicteric Pupils: Present: PERRL - ENT ENT exam: Present: normal exam - Neck Neck exam general surgery: Present: supple, trachea midline. Absent: lymphadenopathy - Respiratory Respiratory exam: Present: decreased breath sounds, wheezes (Right lower lobe). Absent: accessory muscle use, rales, rhonchi - Cardiovascular Cardiovascular exam: Present: +S1, +S2, tachycardia. Absent: diastolic murmur, gallop, rubs, systolic murmur - GI/Abdominal GI/Abdominal exam: Present: normal bowel sounds, soft, no peritoneal signs. Absent: distended, tenderness - Rectal Rectal exam: Present: deferred - Additional comments: exam deferred. - Extremities Exam Extremities exam: Present: warm, radial pulses palpable and symmetrical. Absent : calf tenderness, cyanotic, pedal edema - Back Exam Back exam: Present: normal inspection - Neurological Exam Neurological exam: Present: CN II-XII intact, oriented X3, no focal deficits. Absent: pronater drift, facial droop, speech deficit - Psychiatric Psychiatric exam: Present: normal affect, normal mood - Skin Skin exam: Present: dry, intact Internal Med - H&P Results - Labs CBC & Chem 7: 08/09/17 07:51 08/09/17 10:38 Labs: BMP 08/09/17 10:38 Sodium 129 L Potassium 3.9 Chloride 101 Carbon Dioxide 19 BUN 20 Creatinine 1.36 H Glucose 722 H* Calcium 8.9 - EKG Data EKG shows normal: sinus rhythm Rate: tachycardia - EKG Data Prior EKG available for review: yes EKG comments: 08/09/17 12:18 EKG dated 07/16/17 shows sinus rhythm. EKG dated 08/09/17 shows sinus tachycardia. - Diagnostic Studies Chest x-ray Additional comments: Impressions Chest X-Ray 08/09/17 07:44 IMPRESSION: No evidence for acute cardiopulmonary process. D/ / Kris Mac MD / Kris Mac MD Interpreting Provider: Kris Mac MD CT scan - abdomen Additional comments: Impressions Abdomen/Pelvis CT 08/09/17 07:50 IMPRESSION: 1. No acute process demonstrated 2. Status post cholecystectomy, hysterectomy, appendectomy D/ / Christ Cervantes MD / Christ Cervantes MD Interpreting Provider: Christ Cervantes MD
[2017-08-09] MEDS ORDERED: Ketorolac 30 MG/ML VIAL IVP PRN (12:33)
[2017-08-09] MEDS ORDERED: *HR* OxyCODONE/APAP 7.5/325 TABLET PO PRN (13:14)
[2017-08-09] MEDS: 0.45 % Sodium Chloride w/KCl 20 MEQ/1,000 ML MLS IVC SCH ×4 (13:32→18:40)
[2017-08-09] MEDS: GuaiFENesin/Dextromethorphan TABLET PO SCH ×2 (13:42→20:22)
[2017-08-09] MEDS: Orphenadrine 100 MG TABLET.ER PO SCH ×2 (13:42→23:17)
[2017-08-09] MEDS: (Subcutaneous Insulin Pump [T:Slim] 1 EACH) MC SCH (13:42)
[2017-08-09] MEDS: *HR* Heparin 5,000 UNIT/ML VIAL SQ SCH ×2 (15:17→23:17)
[2017-08-09] MEDS: *HR* LORazepam 1 MG TABLET PO SCH ×2 (15:18→20:23)
[2017-08-09] MEDS: *HR* Morphine 2 MG/ML SYRINGE IVP PRN ×2 (15:18→21:21)
[2017-08-09] MEDS: Gabapentin 400 MG CAPSULE PO SCH ×2 (15:18→20:23)
[2017-08-09 16:00] LABS: BUN/Creatinine Ratio 18 (6-26); Blood Urea Nitrogen 15 mg/dL (7-20); Calcium 8.2 mg/dL (8.6-10.8); Carbon Dioxide 21 mEq/L (19-29); Chloride 107 mEq/L (98-109); Glucose 178 mg/dL (70-99); Osmolality,Calculated 289 (280-300); Potassium 3.8 mEq/L (3.5-4.5); eGFR For African Americans > 60 (> 60); eGFR For Non-African Americans > 60 (> 60)
[2017-08-09 16:01] LABS: Sodium 137 mEq/L (136-145)
[2017-08-09] MEDS ORDERED: D5% in 0.45% NACL w KCl 20 MEQ/1,000 ML MLS IVC ONE (18:39)
[2017-08-09] MEDS ORDERED: D5% in 0.45% NACL w KCl 20 MEQ/1,000 ML MLS IVC SCH (18:45)
--- NOTE | 2017-08-09 19:55 | Event Note ---
Date of Encounter: 08/09/17 Time of Encounter: 18:00 Discussed with CHRISTINE and agree with assessment and plan. Will continue DKA protocol
[2017-08-09] MEDS: ALGAL OIL PO SCH (20:23)
[2017-08-09] MEDS: B6 PO SCH (20:23)
[2017-08-09] MEDS: B12 PO SCH (20:23)
[2017-08-09] MEDS: LEVOMEFOLATE PO SCH (20:23)
[2017-08-09 20:40] LABS: BUN/Creatinine Ratio 14 (6-26); Blood Urea Nitrogen 12 mg/dL (7-20); Calcium 8.6 mg/dL (8.6-10.8); Carbon Dioxide 23 mEq/L (19-29); Chloride 110 mEq/L (98-109); Glucose 97 mg/dL (70-99); Osmolality,Calculated 288 (280-300); Potassium 3.9 mEq/L (3.5-4.5); Sodium 139 mEq/L (136-145); eGFR For African Americans > 60 (> 60); eGFR For Non-African Americans > 60 (> 60)
[2017-08-09] MEDS ORDERED: lamoTRIgine 100 MG TABLET PO SCH (21:00)
[2017-08-09] MEDS ORDERED: Insulin DETEMIR 100 UNIT/ML X5UNITS SQ ONE (21:47)
[2017-08-09] MEDS: Insulin LISPRO 300 UNITS/3 ML VIAL SQ SCH (22:20)
[2017-08-10] MEDS ORDERED: *HR* Promethazine 25 MG/ML VIAL IVP ONE (03:24)
[2017-08-10] MEDS: *HR* Morphine 2 MG/ML SYRINGE IVP PRN ×2 (03:41→10:07)
[2017-08-10] MEDS ORDERED: Insulin LISPRO 300 UNITS/3 ML VIAL SQ ONE (05:11)
[2017-08-10 06:51] LABS: Basophils % 0.4 %; Eosinophils # 0.3 K/mcL (0.0-0.6); Eosinophils % 3.6 %; Hematocrit 33.1 % (35.3-44.9); Hemoglobin 11.2 g/dL (11.5-15.4); Immature Granulocytes % 0.3 % (0-4); Lymphocytes # 1.8 K/mcL (0.6-4.6); Lymphocytes % 25.5 %; Mean Corpuscular HGB Conc 33.8 g/dL (31.6-35.5); Mean Corpuscular Hemoglobin 29.9 pg (28.0-33.3); Mean Corpuscular Volume 88.3 fL (83.0-100.0); Mean Platelet Volume 10.2 fL (9.4-12.4); Monocytes # 0.2 K/mcL (0.0-1.3); Monocytes % 3.1 %; Neutrophils # 4.6 K/mcL (1.6-8.9); Platelet Count 172 K/mcL (140-400); Red Blood Count 3.75 M/mcL (3.82-4.97); Red Cell Distribution Width 12.3 % (11.5-14.5); Segmented Neutrophils % 67.1 %
[2017-08-10 06:54] LABS: Hemoglobin A1C 7.7 %
[2017-08-10 06:57] LABS: Albumin 2.9 g/dL (3.5-5.0); Albumin/Globulin Ratio 0.8 (1.1-2.2); Bilirubin,Total 0.3 mg/dL (0.2-1.2); Calcium 8.9 mg/dL (8.6-10.8); Globulin 3.6 g/dL (2.4-3.5); Potassium 4.1 mEq/L (3.5-4.5); Total Protein 6.5 g/dL (6.0-8.3)
[2017-08-10 06:58] LABS: Chol/HDL Ratio 3.7 (0-4.9)
[2017-08-10 07:40] LABS: Beta-Hydroxybutyric Acid 0.44 mmol/L (0.02-0.27)
[2017-08-10] MEDS ORDERED: Insulin Human Regular 10 UNIT in 0.9 % Sodium Chloride 10 ML IV ONE (08:30)
--- NOTE | 2017-08-10 08:32 | Internal Med Progress Note ---
Date of Encounter: 08/10/17 Time of Encounter: 08:31 - Assessment and plan (1) Acute kidney injury Current Visit: No Status: Acute Assessment and plan: Slight elevation in her creatinine likely secondary to hyperglycemia and polyuria. Patient continues to be noncompliant with dietary restrictions as likely contributing to her hyperglycemia resulting in glucosuria. Plan: - Continue oral intake - Resolve hyperglycemia (2) Hyperglycemia Current Visit: No Status: Acute Assessment and plan: Glucose 644 this morning, Anion gap: 7, Beta-Hydroxybutyric acid 44. Glucose improved since admission. Patient uses an insulin pump at home and has been admitted several times in the past few months for DKA. Plan: - Humulin R 10units IV, recheck glucose in 1 hours. - Start back on insulin pump. 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 (3) Abdominal pain Current Visit: Yes Status: Acute Assessment and plan: Patient presents with abdominal pain likely secondary to initial presenting DKA currently hyperglycemia. Abdominal CT without any acute findings. Lipase 13, nonspecific findings on clinical examination. - Patient eating and drinking without nausea or vomiting or decreased in appetite. Plan: - Continue to monitor - Start PPI Qualifiers: Abdominal location: epigastric Qualified Code(s): R10.13 - Epigastric pain (4) DVT prophylaxis Current Visit: Yes Status: Acute Assessment and plan: Subcutaneous heparin 5000 units every 8 hours - Subjective Interval history: Mrs. Gaming 36-year-old female known diabetic with recent episodes of DKA requiring admission and has been seen and evaluated this morning. She is alert awake interactive in no acute distress. She complains of some mild abdominal discomfort but has been tolerating oral intake passing gas and bowel movements. She states that she does not know why her glucose once a high and that before she went to bed and her glucose was in the 90s. She denies any other acute concerns or problems. - Constitutional Vitals: Temp Pulse Resp BP Pulse Ox 98.0 F 96 18 138/93 97 08/10/17 07:43 08/10/17 07:43 08/10/17 07:43 08/10/17 07:43 08/10/17 07:43 General appearance: Present: cooperative, mild distress, A&O X 3, pleasant, obese, answers questions appropriately - Head Head exam: Present: atraumatic, normocephalic - Eye Eye exam: Present: PERRL, conjuntiva pink, sclera anicteric Pupils: Present: PERRL - Neck Neck exam general surgery: Present: supple, trachea midline. Absent: lymphadenopathy - Respiratory Respiratory exam: Present: CTAB. Absent: accessory muscle use, rales, rhonchi, wheezes - Cardiovascular Cardiovascular exam: Present: RRR, +S1, +S2. Absent: diastolic murmur, gallop, rubs, systolic murmur - GI/Abdominal GI/Abdominal exam: Present: normal bowel sounds, soft, no peritoneal signs. Absent: distended, tenderness - Extremities Exam Extremities exam: Present: warm, radial pulses palpable and symmetrical. Absent : calf tenderness, cyanotic, pedal edema - Neurological Exam Neurological exam: Present: CN II-XII intact, oriented X3, no focal deficits. Absent: pronater drift, facial droop, speech deficit - Skin Skin exam: Present: dry, intact Internal Medicine: Result - Labs CBC & Chem 7: 08/10/17 06:33 08/10/17 06:33 Labs: Short CBC 08/10/17 Range/Units 06:33 WBC 6.9 (4.3-11.1) K/mcL Hgb 11.2 L (11.5-15.4) g/dL Hct 33.1 L (35.3-44.9) % Plt Count 172 (140-400) K/mcL Neutrophils # 4.6 (1.6-8.9) K/mcL BMP 08/09/17 08/09/17 08/10/17 15:37 20:14 06:33 Sodium 137 D 139 131 L D Potassium 3.8 3.9 4.1 Chloride 107 110 H 105 Carbon Dioxide 21 23 19 BUN 15 12 14 Creatinine 0.85 0.83 1.26 H D Glucose 178 H 97 644 H* Calcium 8.2 L 8.6 8.9 Liver Function 08/10/17 Range/Units 06:33 Total Bilirubin 0.3 (0.2-1.2) mg/dL AST 60 H (5-34) Units/L ALT 95 H (0-55) Units/L Alkaline Phosphatase 159 H (38-126) Units/L Albumin 2.9 L (3.5-5.0) g/dL Consult Discharge Plan - Plan Referrals: Marielena Baltazar, [employer] HE[employer] INFORMATICIAN [Advanced Practice Nurse] - 08/16/17 8:00 am
[2017-08-10] MEDS: *HR* Heparin 5,000 UNIT/ML VIAL SQ SCH ×3 (08:55→15:55)
[2017-08-10] MEDS: GuaiFENesin/Dextromethorphan TABLET PO SCH ×2 (08:56→22:08)
[2017-08-10] MEDS: *HR* LORazepam 1 MG TABLET PO SCH ×3 (08:56→22:08)
[2017-08-10] MEDS: Gabapentin 400 MG CAPSULE PO SCH ×3 (08:56→22:08)
[2017-08-10] MEDS: Insulin LISPRO 300 UNITS/3 ML VIAL SQ SCH ×4 (08:57→22:11)
[2017-08-10] MEDS ORDERED: FLUoxetine 20 MG CAPSULE PO SCH (09:00)
[2017-08-10] MEDS ORDERED: lamoTRIgine 100 MG TABLET PO SCH (09:00)
[2017-08-10] MEDS: B6 PO SCH (09:03)
[2017-08-10] MEDS: ALGAL OIL PO SCH (09:03)
[2017-08-10] MEDS: B12 PO SCH (09:03)
[2017-08-10] MEDS: LEVOMEFOLATE PO SCH (09:03)
[2017-08-10] MEDS: (Subcutaneous Insulin Pump [T:Slim] 1 EACH) MC SCH (11:39)
[2017-08-10] MEDS: Orphenadrine 100 MG TABLET.ER PO SCH (12:40)
--- NOTE | 2017-08-10 13:24 | Discharge Summary ---
Date of Encounter: 08/10/17 Time of Encounter: 13:22 - Discharge Diagnosis (1) Acute kidney injury Priority: Primary Status: Acute (2) Hyperglycemia Priority: Primary Status: Acute (3) Abdominal pain Priority: Primary Status: Acute Qualifiers: Abdominal location: epigastric Qualified Code(s): R10.13 - Epigastric pain (4) DVT prophylaxis Priority: Secondary Status: Acute (5) DKA (diabetic ketoacidoses) Priority: Primary Status: Acute Qualifiers: Diabetes mellitus type: type 1 Diabetes mellitus complication detail: without coma Qualified Code(s): E10.10 - Type 1 diabetes mellitus with ketoacidosis without coma - Discharge Medications Home Medications: Lisinopril [Zestril] 10 mg PO DAILY 04/17/15 [History] Albuterol Sulfate [Albuterol Inhaler] 2 puff IH Q4HR PRN 06/19/15 [History] LORazepam [Ativan] 2 mg PO TID 06/19/15 [History] Estradiol 2 mg PO DAILY 08/03/16 [History] Esomeprazole Magnesium [Nexium] 40 mg PO BID 08/23/16 [History] Levomefolate/B6/B12/Algal Oil [Metanx Capsule] 1 tab PO BID 07/11/17 [History] Orphenadrine [Norflex] 100 mg PO Q12H 07/13/17 [History] Promethazine [Phenergan] 12.5 mg PO Q8H PRN 07/13/17 [History] Subcutaneous Insulin Pump [T:Slim] 1 each MC AD 07/13/17 [History] FLUoxetine HCl [Prozac] 40 mg PO Q48H 08/09/17 [History] FLUoxetine HCl [Prozac] 80 mg PO Q48H 08/09/17 [History] Gabapentin [Neurontin] 800 mg PO TID 08/09/17 [History] Quetiapine Fumarate [Seroquel] 25 - 50 mg PO HS 08/09/17 [History] Rosuvastatin [Crestor] 20 mg PO QPM 08/09/17 [History] lamoTRIgine [Lamictal] 100 mg PO QAM 08/09/17 [History] lamoTRIgine [Lamictal] 300 mg PO HS 08/09/17 [History] Allergies/Adverse Reactions: 3 Allergy/AdvReac Type Severity Reaction Status Date / Time Cortisone Allergy Anaphylaxis Verified 07/10/17 21:41 hydrocodone Allergy Anaphylaxis Verified 08/09/17 19:31 ketorolac [From Toradol] Allergy Anaphylaxis Verified 07/10/17 21:41 latex Allergy Hives Verified 07/10/17 21:41 metoclopramide [From Reglan] Allergy Anaphylaxis Verified 07/10/17 21:41 tramadol [From Ultram] AdvReac Nausea Verified 07/10/17 21:41 Zolpidem [From Ambien] AdvReac Insomnia Verified 07/10/17 21:41 Date of admission: 08/09/17 11:33 Primary care physician: Domingo Humphrey DO Discharging clinician: Steven Marshall Anticipated date of discharge: 08/10/17 - Patient Status Disposition: Home, Self-Care Condition: Good Functional capacity at discharge: independent ambulation Overall status at discharge: patient is back to baseline - Discharge Instructions Follow Up With: Marielena Baltazar CNP [Advanced Practice Nurse] - 08/16/17 8:00 am Additional Instructions: 1. Follow-up with your primary care provider in the next 3-5 days 2. Take all prescriptions as prescribed, any concerns or questions contact her primary care provider. 3. Return to the emergency department if: Continue difficulty controlling glucose levels, worsening of abdominal discomforts. - Diet and Activity Activity: increase activity as tolerated Diet: diabetic diet Interval History: Ms. Gaming is a 36 year old female with medical history of asthma, diabetes controlled by insulin pump, GERD, HLD, and HTN presents from the ED with chief complaint of hyperglycemia (BG readings >600) and bilateral flank and abdominal pain. Upon evaluation in emergency department she was found to have a glucose greater than 600, positive hydroxybutyrate acid, but does not have a positive anion gap. She was initially treated for DKA with improvement or resolution of her symptoms. But she became hyperglycemic following day after noncompliance and poor dietary intake. She is provided inpatient sliding scale insulin +10 units IV Humulin R with improvement to 260 for her glucose level. During this inpatient stay her abdominal pain was worked up, CT of the abdomen was negative for any acute process. The patient was able to eat, drink, have bowel movements , lactic acid at its highest was 2.1. Hospital course: Ms. Gaming is a 36 year old female - Time Spent with Patient Total time spent providing and/or coordinating discharge services: - Constitutional Vitals: Temp Pulse Resp BP Pulse Ox 98.0 F 88 16 142/84 99 08/10/17 11:28 08/10/17 12:44 08/10/17 12:44 08/10/17 11:28 08/10/17 11:28 General appearance: Present: cooperative, mild distress, A&O X 3, pleasant, obese, answers questions appropriately - Head Head exam: Present: atraumatic, normocephalic - Eye Eye exam: Present: PERRL, conjuntiva pink, sclera anicteric Pupils: Present: PERRL - Neck Neck exam general surgery: Present: supple, trachea midline. Absent: lymphadenopathy - Respiratory Respiratory exam: Present: CTAB. Absent: accessory muscle use, rales, rhonchi, wheezes - Cardiovascular Cardiovascular exam: Present: RRR, +S1, +S2. Absent: diastolic murmur, gallop, rubs, systolic murmur - GI/Abdominal GI/Abdominal exam: Present: normal bowel sounds, soft, tenderness (mild tenderness), no peritoneal signs. Absent: distended - Extremities Exam Extremities exam: Present: warm, radial pulses palpable and symmetrical. Absent : calf tenderness, cyanotic, pedal edema - Neurological Exam Neurological exam: Present: CN II-XII intact, oriented X3, no focal deficits. Absent: pronater drift, facial droop, speech deficit - Skin Skin exam: Present: dry, intact
[2017-08-10] MEDS ORDERED: *HR* Dextrose 50 % in Water (Syg) 50 ML SYRINGE ONE (14:02)
--- NOTE | 2017-08-10 14:10 | Electrocardiograph Report ---
[facility] Test Date: 2017-08-09 Pat Name: Piedad Gaming Department: [id number] Room: 2N07 Gender: F Sliver Former: MIRYAM : 1980 Requested By: Kris Truong Order Number: [id number] Reading MD: Eric Barajas MD Measurements Intervals [place] Rate: 106 P: 50 [place]: 152 QRS: 56 QRSD: 102 T: 5 QT: 347 QTc: 409 Interpretive Statements SINUS TACHYCARDIA ABNORMAL RHYTHM ECG Electronically Signed On 08-10-2017 14:09:05 EST by Eric Barajas MD
[2017-08-10 15:37] LABS: Amphetamine Screen,Urine Negative ng/mL (Cutoff=1000); Barbiturate Screen,Urine Negative ng/mL (Cutoff=200); Benzodiazepines Screen,Urine Negative ng/mL (Cutoff=200); Cannabinoid Screen,Urine Positive ng/mL (Cutoff = 50); Cocaine Screen,Urine Negative ng/mL (Cutoff= 300); Opiate Screen,Urine Positive ng/mL (Cutoff=300); Phencyclidine Screen,Urine Negative ng/mL (Cutoff=25)
[2017-08-10] MEDS ORDERED: Promethazine 25 MG in 0.9 % Sodium Chloride 50 ML IVPB PRN (16:32)
[2017-08-10] MEDS ORDERED: *HR* OxyCODONE Immed Rel 5 MG TABLET PO PRN (16:37)
[2017-08-10] MEDS ORDERED: 0.9 % Sodium Chloride 1,000 ML IVC SCH (16:45)
[2017-08-10] MEDS ORDERED: 0.9 % Sodium Chloride 1,000 ML ONE (16:52)
[2017-08-10 17:23] LABS: Alanine Aminotransferase 83 Units/L (0-55); Albumin 3.2 g/dL (3.5-5.0); Albumin/Globulin Ratio 0.9 (1.1-2.2); Alkaline Phosphatase 138 Units/L (38-126); Aspartate Amino Transferase 41 Units/L (5-34); BUN/Creatinine Ratio 13 (6-26); Bilirubin,Total 0.4 mg/dL (0.2-1.2); Blood Urea Nitrogen 11 mg/dL (7-20); Calcium 9.3 mg/dL (8.6-10.8); Carbon Dioxide 24 mEq/L (19-29); Chloride 108 mEq/L (98-109); Globulin 3.6 g/dL (2.4-3.5); Glucose 121 mg/dL (70-99); Osmolality,Calculated 285 (280-300); Potassium 4.3 mEq/L (3.5-4.5); Sodium 137 mEq/L (136-145); Total Protein 6.8 g/dL (6.0-8.3); eGFR For African Americans > 60 (> 60); eGFR For Non-African Americans > 60 (> 60)
[2017-08-10] MEDS ORDERED: PROMETHAZINE IVPB PRN (17:30)
[2017-08-10] MEDS ORDERED: SODIUM CHLORIDE 0.9% IVPB PRN (17:30)
--- NOTE | 2017-08-10 18:20 | Internal Med Progress Note ---
Date of Encounter: 08/10/17 Time of Encounter: 16:45 - Assessment and plan (1) DKA (diabetic ketoacidoses) Current Visit: Yes Status: Resolved Assessment and plan: DKA has resolved. Now on accuchecks with her long acting insulin and coverage. Qualifiers: Diabetes mellitus type: type 1 Diabetes mellitus complication detail: without coma Qualified Code(s): E10.10 - Type 1 diabetes mellitus with ketoacidosis without coma (2) Transaminitis Current Visit: Yes Status: Acute Assessment and plan: Pt with significant elevation of AST/ALT and alk phos. ? related to DKA and poor perfusion versus other process. No pain on R side. Will recheck labs in AM with hepatitis studies. (3) Abdominal pain Current Visit: Yes Status: Acute Assessment and plan: Will ask for GI eval tomorrow in AM. Qualifiers: Abdominal location: left upper quadrant Qualified Code(s): R10.12 - Left upper quadrant pain (4) Hypertension Current Visit: No Status: Chronic Assessment and plan: Continue home meds. Controlled. Qualifiers: Hypertension type: essential hypertension Qualified Code(s): I10 - Essential (primary) hypertension (5) Gastroparesis Current Visit: No Status: Chronic Assessment and plan: Most likely is the cause of her abd discomfort. Can't take Reglan. (6) Tobacco abuse Current Visit: Yes Status: Chronic Assessment and plan: Cessation counselling. - Subjective Interval history: Ms Gaming is currently admitted for acute DKA. She is now off drip but is having a lot of abdominal pain. Her LFTs have been elevated as well. She remains moderate to high risk due to potential for worsening clinical status. Ms Gaming is having L side abd pain. No fever or chills. No diarrhea but has nausea. No CP or SOB. No constipation. Has had prior demar, appy and hyster. Her LFTs were elevated and she denies ETOH use and drug use. Denies excessive Tylenol use. No hepatitis history. Exam Alert. Tearful and crying. Mucus membranes dry Heart reg - not tachy Lungs clear Abd - - Constitutional Vitals: Temp Pulse Resp BP Pulse Ox 98.0 F 81 14 141/86 97 08/10/17 11:28 08/10/17 17:05 08/10/17 17:05 08/10/17 16:05 08/10/17 17:05 General appearance: Present: cooperative, A&O X 3, answers questions appropriately Exam: Tearful and crying. Moderate distress. - Head Head exam: Present: atraumatic, normocephalic - Eye Eye exam: Present: EOMI, conjuntiva pink - ENT ENT exam: Present: mucous membranes moist - Respiratory Respiratory exam: Present: CTAB. Absent: rales, rhonchi, wheezes - Cardiovascular Cardiovascular exam: Present: RRR. Absent: tachycardia - GI/Abdominal GI/Abdominal exam: Present: normal bowel sounds, soft Additional comments: bowel sounds present. Soft. Tenderness to mild palpation of LUQ area. No rebound, rigidity or guarding. No pain with distraction. No pain with pressure on R side. - Extremities Exam Extremities exam: Present: warm. Absent: tenderness - Neurological Exam Neurological exam: Present: alert, oriented X3, no focal deficits - Skin Skin exam: Present: dry, warm. Absent: rash Internal Medicine: Result - Labs CBC & Chem 7: 08/10/17 06:33 08/10/17 16:58 Labs: Short CBC 08/10/17 Range/Units 06:33 WBC 6.9 (4.3-11.1) K/mcL Hgb 11.2 L (11.5-15.4) g/dL Hct 33.1 L (35.3-44.9) % Plt Count 172 (140-400) K/mcL Neutrophils # 4.6 (1.6-8.9) K/mcL BMP 08/09/17 08/10/17 08/10/17 20:14 06:33 16:58 Sodium 139 131 L D 137 Potassium 3.9 4.1 4.3 Chloride 110 H 105 108 Carbon Dioxide 23 19 24 BUN 12 14 11 Creatinine 0.83 1.26 H D 0.83 Glucose 97 644 H* 121 H Calcium 8.6 8.9 9.3 Liver Function 08/10/17 08/10/17 Range/Units 06:33 16:58 Total Bilirubin 0.3 0.4 (0.2-1.2) mg/dL AST 60 H 41 H (5-34) Units/L ALT 95 H 83 H (0-55) Units/L Alkaline Phosphatase 159 H 138 H (38-126) Units/L Albumin 2.9 L 3.2 L (3.5-5.0) g/dL Consult Discharge Plan - Plan Additional Instructions: 1. Follow-up with your primary care provider in the next 3-5 days 2. Take all prescriptions as prescribed, any concerns or questions contact her primary care provider. 3. Return to the emergency department if: Continue difficulty controlling glucose levels, worsening of abdominal discomforts. Referrals: Marielena Baltazar CNP [Advanced Practice Nurse] - 08/16/17 8:00 am
[2017-08-10 21:15] VITALS: BP 166/79
--- NOTE | 2017-08-10 23:36 | Event Note ---
Date of Encounter: 08/10/17 Time of Encounter: 23:33 Admitted for DKA, possible due to poor medical compliance. Patient requested for stronger pain medications. 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 Risk of pain medications greater harm than benefit. Discussed with RN on the use of tylenol Before i could evaluate patient, RN notified me that patient left the hospital AMA, refused to sign AMA paper work , refused to allow RN to remove IV and ripped IV out herself and refused to let RN cover site with band-aid. Earlier in the day, patient CBG 384 and she is refusing her 2100 hr sliding scale humalog despite education. RN reported that there is an open bag of cheese puff on her table suggesting poor medical-health compliance despite education
== END 2017-08-10 23:30 | disposition home or self-care (01) | DRG 638 ==
LOC: EMEROO 07:31 → 2NNU 07:31
PROVIDERS: ADMIT Hospitalist; ATTEND Internal Medicine

== ENCOUNTER 2017-09-06 13:03 | Inpatient (IN) ==
--- NOTE | 2017-09-06 13:13 | Emergency Department Note ---
Disposition Clinical Impression: Hyperglycemia Disposition: Admitted As Inpatient Condition: Good Referrals: Domingo Humphrey DO [Primary Care Provider] - Forms: ED Satisfaction Letter, Work/School Release General Adult HPI - General Chief complaint: ED General Medical Stated complaint: hyperglycemia Time Seen by Provider: 09/06/17 13:05 Source: patient Mode of arrival: EMS Limitations: no limitations Nursing Notes Reviewed: Yes Vital Signs Reviewed: Yes - History of Present Illness HPI Narrative: 37-year-old female history of type 1 diabetes who presents to the ER with a chief complaint of hyperglycemia. Patient reports she had a fever of 1022 days ago. States starting last night she had nausea vomiting and diarrhea. Reports upper abdominal pain. States that she woke up this morning and her glucose was 500. She bolused insulin and rechecked and states it was higher. She states she is not vomiting throughout the day. She reports that she had a syncopal episode at her parent's home and fell onto the bed. She denies any cough shortness of breath runny nose or sore throat. No dysuria or hematuria. No other complaints. Pt Subjective Complaint: Hyperglycemia Onset (ago): day(s) Location: abdomen Consistency: constant Improves with: nothing Worsens with: nothing Associated symptoms: Reports: nausea/vomiting Treatments Prior to Arrival: none - Related Data Home Medications Medication Instructions Recorded Confirmed Lisinopril [Zestril] 10 mg PO DAILY 04/17/15 08/11/17 Albuterol Sulfate [Albuterol 2 puff IH Q4HR PRN 06/19/15 08/11/17 Inhaler] LORazepam [Ativan] 2 mg PO TID 06/19/15 08/11/17 Estradiol 2 mg PO DAILY 08/03/16 08/11/17 Esomeprazole Magnesium [Nexium] 40 mg PO BID 08/23/16 08/11/17 Levomefolate/B6/B12/Algal Oil 1 tab PO BID 07/11/17 08/11/17 [Metanx Capsule] Orphenadrine [Norflex] 100 mg PO Q12H 07/13/17 08/11/17 Promethazine [Phenergan] 12.5 mg PO Q8H PRN 07/13/17 08/11/17 Gabapentin [Neurontin] 800 mg PO TID 08/09/17 08/11/17 Quetiapine Fumarate [Seroquel] 25 - 50 mg PO HS 08/09/17 08/11/17 Rosuvastatin [Crestor] 20 mg PO QPM 08/09/17 08/11/17 Insulin ASPART [NovoLOG] 0 unit SQ AD 08/11/17 08/11/17 Insulin DETEMIR [Levemir] 60 units SQ QPM 08/11/17 08/11/17 Allergies Allergy/AdvReac Type Severity Reaction Status Date / Time Cortisone Allergy Anaphylaxis Verified 07/10/17 21:41 hydrocodone Allergy Anaphylaxis Verified 08/09/17 19:31 ketorolac [From Toradol] Allergy Anaphylaxis Verified 07/10/17 21:41 latex Allergy Hives Verified 07/10/17 21:41 metoclopramide [From Reglan] Allergy Anaphylaxis Verified 07/10/17 21:41 tramadol [From Ultram] AdvReac Nausea Verified 07/10/17 21:41 Zolpidem [From Ambien] AdvReac Insomnia Verified 07/10/17 21:41 All systems ED: reviewed and negative except as stated. Constitutional: Reports: fever Cardiovascular: Denies: chest pain Respiratory: Denies: dyspnea Gastrointestinal: Reports: abdominal pain, nausea, vomiting, diarrhea Genitourinary: Denies: dysuria, hematuria Past Medical History - Past Medical History Attestation: Yes The following information was validated with the patient. Source: patient Medical history: Reports: asthma, diabetes, GERD, hyperlipidemia, hypertension, other Surgical history: Reports: appendectomy, cholecystectomy, hysterectomy, knee replacement (Left), other (Zach in right shoulder/arm) Psychiatric history: Reports: anxiety, depression, panic disorder [employer] history: Reports: other - Social History Smoking Status: Current every day smoker Smokeless Tobacco Status: No Alcohol use: Reports: none Drug use: Reports: none Physical Exam - General Limitations: no limitations General appearance: alert, appears intoxicated - Head Head exam: atraumatic, normocephalic - Eye Eye exam: Present: normal appearance - ENT ENT exam: normal exam - Neck Neck exam: Present: normal inspection - Chest Chest inspection: Present: normal inspection, symmetric chest wall rise - Respiratory Respiratory exam: Present: normal lung sounds bilaterally - Cardiovascular Cardiovascular exam: Present: regular rate, normal rhythm, normal heart sounds - Abdominal Exam Abdominal exam: Present: soft, tenderness (Mild upper abdominal tenderness without rigidity disenchanted or guarding.) - Extremities Exam Extremities exam: Present: normal inspection, full ROM - Expanded Upper Extremity Exam Shoulder exam: Present: normal inspection, full ROM Arm exam: Present: normal inspection, full ROM Elbow exam: Present: normal inspection, full ROM Forearm/Wrist exam: Present: normal inspection, full ROM Hand exam: Present: normal inspection, full ROM - Expanded Lower Extremity Exam Hip/Pelvis exam: Present: normal inspection, full ROM Upper leg exam: Present: normal inspection, full ROM Knee exam: Present: normal inspection, full ROM Lower leg exam: Present: normal inspection, full ROM Ankle exam: Present: normal inspection, full ROM Foot/toe exam: Present: normal inspection, full ROM - Neurological Exam Neurological exam: Present: alert, other (GCS 15. Answers questions appropriately. Nonfocal. Appears intoxicated but is easily arousable.) - Skin Skin exam: Present: warm, dry, intact Course Course Narrative: Patient seen and examined. Vital signs reviewed. We will obtain an EKG as well as labs including VBG, ketones, CT scan of the head given her fall. Patient given 2 L IV fluids. We will reassess after and once labs come back. - Reevaluation(s) Reevaluation #1: Discussed results of labs as well as recommendations to start an insulin drip due to her hyperglycemia. He reports that she is allergic to Zofran. I offered her Phenergan for nausea and vomiting. She then goes on to tell me that she is now having extreme back pain and would like something for that. She waxes and wanes in terms of how alert she has and I do not feel comfortable giving her any IV narcotics at this time as well as reviewing her prior chart showing that she has left AGAINST MEDICAL ADVICE multiple times in the past after not receiving IV narcotics. Vital Signs Temperature 98 F 09/06/17 13:21 Pulse Rate 93 09/06/17 13:21 Respiratory Rate 18 09/06/17 13:21 Blood Pressure 154/89 09/06/17 13:21 O2 Sat by Pulse Oximetry 96 09/06/17 13:21 Temperature 98 F 09/06/17 13:21 Pulse Rate 93 09/06/17 13:21 Respiratory Rate 18 09/06/17 13:21 Blood Pressure 154/89 09/06/17 13:21 O2 Sat by Pulse Oximetry 96 09/06/17 13:21 Medical Decision Making - MDM Narrative Medical decision making narrative: 37-year-old female presents to the ER due to hyperglycemia. History of type 1 diabetes. Reports nausea vomiting and diarrhea since last night. She is noted to be hyperglycemic over 1000 here. No evidence of DKA by labs. Patient given 2 L IV fluid started on normal saline maintenance as well as an insulin drip. She is given Phenergan for nausea and vomiting. She has a prior history of leaving AGAINST MEDICAL ADVICE without receiving IV narcotics. She is drowsy but arousable here so we are not giving her any IV pain medication. - Lab Data Lab results reviewed: Yes I reviewed the patient's lab results. Result diagrams: 09/06/17 14:31 09/06/17 14:31 Lab Results 09/06/17 09/06/17 09/06/17 Range/Units 13:15 13:15 13:15 WBC (4.3-11.1) K/mcL RBC (3.82-4.97) M/mcL Hgb (11.5-15.4) g/dL Hct (35.3-44.9) % MCV (83.0-100.0) fL MCH (28.0-33.3) pg MCHC (31.6-35.5) g/dL RDW (11.5-14.5) % Plt Count (140-400) K/mcL MPV (9.4-12.4) fL Immature Gran % (0-4) % Seg Neutrophils % % Lymphocytes % % Monocytes % % Eosinophils % % Basophils % % Neutrophils # (1.6-8.9) K/mcL Lymphocytes # (0.6-4.6) K/mcL Monocytes # (0.0-1.3) K/mcL Eosinophils # (0.0-0.6) K/mcL Basophils # (0.0-0.2) K/mcL VBG pH (7.32-7.42) pH Units VBG pCO2 (41-51) mmHg VBG pO2 (25-50) mmHg VBG HCO3 (21-27) mEq/L Sodium (136-145) mEq/L Potassium (3.5-5.1) mEq/L Chloride (98-107) mEq/L Carbon Dioxide (23-29) mEq/L BUN (6-20) mg/dL Creatinine (0.60-1.20) mg/dL Est GFR ( Amer) (> 60) Est GFR (Non-Af Amer) (> 60) BUN/Creatinine Ratio (6-26) Glucose (70-105) mg/dL POC Glucose (58-89) Calculated Osmolality (280-300) Calcium (8.6-10.3) mg/dL Total Bilirubin (0.3-1.0) mg/dL AST (13-39) Units/L ALT (7-52) Units/L Alkaline Phosphatase (34-104) Units/L Troponin I (< 0.04) ng/mL Serum Total Protein (6.4-8.9) g/dL Albumin (3.5-5.7) g/dL Globulin (2.4-3.5) g/dL Albumin/Globulin Ratio (1.1-2.2) Beta-Hydroxybutyric Acd (0.02-0.27) mmol/L Urine Color Yellow (Yellow) Urine Clarity Clear (Clear) Urine pH 7.0 (5.0-8.0) pH Units Ur Specific Soldier 1.022 (1.010-1.025) Urine Protein Negative (Neg-Trace) mg/dL Urine Glucose (UA) >=1000 H (Normal) mg/dL Urine Ketones Negative (Negative) mg/dL Urine Blood Trace H (Negative) Urine Nitrite Negative (Negative) Urine Bilirubin Negative (Negative) Urine Urobilinogen Normal (Normal) mg/dL Ur Leukocyte Esterase Negative (Negative) Urine Microscopic RBC 3-5 H (0-3) per hpf Urine Microscopic WBC 0-3 (0-3) per hpf Ur Squamous Epith Cells Many H (None-Few) per lpf Urine Bacteria None Seen (None-Few) per hpf Hyaline Casts None Seen (None-Few) per lpf Ur Culture Indicated? NO (NO) Urine Test Negative (Negative) Urine Opiates Screen Negative (Nxxihj=469) ng/mL Ur Barbiturates Screen Negative (Ukxlob=065) ng/mL Ur Phencyclidine Scrn Negative (Cutoff=25) ng/mL Ur Amphetamines Screen Negative (Zxxmoy=5733) ng/mL U Benzodiazepines Scrn Negative (Hcxsrb=716) ng/mL Urine Cocaine Screen Negative (Cutoff= 300) ng/mL U Marijuana (THC) Screen Negative (Cutoff = 50) ng/mL 09/06/17 09/06/17 09/06/17 Range/Units 14:11 14:31 14:31 WBC 6.3 (4.3-11.1) K/mcL RBC 4.20 (3.82-4.97) M/mcL Hgb 12.9 (11.5-15.4) g/dL Hct 36.8 (35.3-44.9) % MCV 87.6 (83.0-100.0) fL MCH 30.7 (28.0-33.3) pg MCHC 35.1 (31.6-35.5) g/dL RDW 12.1 (11.5-14.5) % Plt Count 160 (140-400) K/mcL MPV 10.5 (9.4-12.4) fL Immature Gran % 0.3 (0-4) % Seg Neutrophils % 80.6 % Lymphocytes % 14.3 % Monocytes % 2.4 % Eosinophils % 1.8 % Basophils % 0.6 % Neutrophils # 5.1 (1.6-8.9) K/mcL Lymphocytes # 0.9 (0.6-4.6) K/mcL Monocytes # 0.2 (0.0-1.3) K/mcL Eosinophils # 0.1 (0.0-0.6) K/mcL Basophils # 0.0 (0.0-0.2) K/mcL VBG pH (7.32-7.42) pH Units VBG pCO2 (41-51) mmHg VBG pO2 (25-50) mmHg VBG HCO3 (21-27) mEq/L Sodium 125 L (136-145) mEq/L Potassium 4.7 (3.5-5.1) mEq/L Chloride 92 L (98-107) mEq/L Carbon Dioxide 23 (23-29) mEq/L BUN 20 (6-20) mg/dL Creatinine 1.10 (0.60-1.20) mg/dL Est GFR ( Amer) > 60 (> 60) Est GFR (Non-Af Amer) 56 L (> 60) BUN/Creatinine Ratio 18 (6-26) Glucose 1006 H* (70-105) mg/dL POC Glucose > 600 H* (58-89) Calculated Osmolality 313 H (280-300) Calcium 9.5 (8.6-10.3) mg/dL Total Bilirubin 0.6 (0.3-1.0) mg/dL AST 39 (13-39) Units/L ALT 31 (7-52) Units/L Alkaline Phosphatase 157 H (34-104) Units/L Troponin I (< 0.04) ng/mL Serum Total Protein 7.3 (6.4-8.9) g/dL Albumin 3.9 (3.5-5.7) g/dL Globulin 3.4 (2.4-3.5) g/dL Albumin/Globulin Ratio 1.1 (1.1-2.2) Beta-Hydroxybutyric Acd 0.93 H (0.02-0.27) mmol/L Urine Color (Yellow) Urine Clarity (Clear) Urine pH (5.0-8.0) pH Units Ur Specific Soldier (1.010-1.025) Urine Protein (Neg-Trace) mg/dL Urine Glucose (UA) (Normal) mg/dL Urine Ketones (Negative) mg/dL Urine Blood (Negative) Urine Nitrite (Negative) Urine Bilirubin (Negative) Urine Urobilinogen (Normal) mg/dL Ur Leukocyte Esterase (Negative) Urine Microscopic RBC (0-3) per hpf Urine Microscopic WBC (0-3) per hpf Ur Squamous Epith Cells (None-Few) per lpf Urine Bacteria (None-Few) per hpf Hyaline Casts (None-Few) per lpf Ur Culture Indicated? (NO) Urine Test (Negative) Urine Opiates Screen (Lsgqot=442) ng/mL Ur Barbiturates Screen (Neeksx=547) ng/mL Ur Phencyclidine Scrn (Cutoff=25) ng/mL Ur Amphetamines Screen (Pmfhwv=3074) ng/mL U Benzodiazepines Scrn (Ttgnrs=584) ng/mL Urine Cocaine Screen (Cutoff= 300) ng/mL U Marijuana (THC) Screen (Cutoff = 50) ng/mL 09/06/17 09/06/17 Range/Units 14:31 14:43 WBC (4.3-11.1) K/mcL RBC (3.82-4.97) M/mcL Hgb (11.5-15.4) g/dL Hct (35.3-44.9) % MCV (83.0-100.0) fL MCH (28.0-33.3) pg MCHC (31.6-35.5) g/dL RDW (11.5-14.5) % Plt Count (140-400) K/mcL MPV (9.4-12.4) fL Immature Gran % (0-4) % Seg Neutrophils % % Lymphocytes % % Monocytes % % Eosinophils % % Basophils % % Neutrophils # (1.6-8.9) K/mcL Lymphocytes # (0.6-4.6) K/mcL Monocytes # (0.0-1.3) K/mcL Eosinophils # (0.0-0.6) K/mcL Basophils # (0.0-0.2) K/mcL VBG pH 7.56 H (7.32-7.42) pH Units VBG pCO2 23 L (41-51) mmHg VBG pO2 119 H (25-50) mmHg VBG HCO3 21 (21-27) mEq/L Sodium (136-145) mEq/L Potassium (3.5-5.1) mEq/L Chloride (98-107) mEq/L Carbon Dioxide (23-29) mEq/L BUN (6-20) mg/dL Creatinine (0.60-1.20) mg/dL Est GFR ( Amer) (> 60) Est GFR (Non-Af Amer) (> 60) BUN/Creatinine Ratio (6-26) Glucose (70-105) mg/dL POC Glucose (58-89) Calculated Osmolality (280-300) Calcium (8.6-10.3) mg/dL Total Bilirubin (0.3-1.0) mg/dL AST (13-39) Units/L ALT (7-52) Units/L Alkaline Phosphatase (34-104) Units/L Troponin I < 0.03 (< 0.04) ng/mL Serum Total Protein (6.4-8.9) g/dL Albumin (3.5-5.7) g/dL Globulin (2.4-3.5) g/dL Albumin/Globulin Ratio (1.1-2.2) Beta-Hydroxybutyric Acd (0.02-0.27) mmol/L Urine Color (Yellow) Urine Clarity (Clear) Urine pH (5.0-8.0) pH Units Ur Specific Soldier (1.010-1.025) Urine Protein (Neg-Trace) mg/dL Urine Glucose (UA) (Normal) mg/dL Urine Ketones (Negative) mg/dL Urine Blood (Negative) Urine Nitrite (Negative) Urine Bilirubin (Negative) Urine Urobilinogen (Normal) mg/dL Ur Leukocyte Esterase (Negative) Urine Microscopic RBC (0-3) per hpf Urine Microscopic WBC (0-3) per hpf Ur Squamous Epith Cells (None-Few) per lpf Urine Bacteria (None-Few) per hpf Hyaline Casts (None-Few) per lpf Ur Culture Indicated? (NO) Urine Test (Negative) Urine Opiates Screen (Knfeij=375) ng/mL Ur Barbiturates Screen (Vtsonc=275) ng/mL Ur Phencyclidine Scrn (Cutoff=25) ng/mL Ur Amphetamines Screen (Mtastr=3094) ng/mL U Benzodiazepines Scrn (Ptjzdo=091) ng/mL Urine Cocaine Screen (Cutoff= 300) ng/mL U Marijuana (THC) Screen (Cutoff = 50) ng/mL - EKG Data EKG #1 EKG attestation: Yes I reviewed and interpreted this EKG. EKG results narrative: EKG demonstrates sinus rhythm with a rate of 97 bpm. Normal axis. Normal intervals. Normal R-wave progression. No gross ST elevations or depressions. No acute ischemic findings.
[2017-09-06] MEDS ORDERED: Ondansetron 4 MG/2 ML VIAL IVP ONE (13:15)
[2017-09-06 13:25] LABS: Bilirubin,Urine Negative (Negative); Blood,Urine Trace (Negative); Clarity,Urine Clear (Clear); Color,Urine Yellow (Yellow); Glucose,Urine (UA) >=1000 mg/dL (Normal); Ketones,Urine Negative (Negative); Leukocyte Esterase,Urine Negative (Negative); Nitrite,Urine Negative (Negative); Protein,Urine Negative (Neg-Trace); Specific Gravity,Urine 1.022 (1.010-1.025); Urobilinogen,Urine Normal (Normal)
[2017-09-06 13:29] LABS: Bacteria,Urine None Seen per hpf (None-Few); Hyaline Casts,Urine None Seen per lpf (None-Few); Squamous Epithelial Cell,Urine Many per lpf (None-Few); WBC,Urine 0-3 per hpf (0-3)
[2017-09-06 13:36] LABS: Amphetamine Screen,Urine Negative ng/mL (Cutoff=1000); Barbiturate Screen,Urine Negative ng/mL (Cutoff=200); Benzodiazepines Screen,Urine Negative ng/mL (Cutoff=200); Cannabinoid Screen,Urine Negative ng/mL (Cutoff = 50); Cocaine Screen,Urine Negative ng/mL (Cutoff= 300); Opiate Screen,Urine Negative ng/mL (Cutoff=300); Phencyclidine Screen,Urine Negative ng/mL (Cutoff=25)
--- NOTE | 2017-09-06 14:28 | Emergency Department Note ---
START Narrative - START START: I examined this patient and my medical decision-making was reviewed with the Resident Physician. I agree with the documented findings, disposition and treatment plan as described except to the extent set forth below. 37-year-old female who is a brittle diabetic presents to the ER for hyperglycemia and likely diabetic ketoacidosis. Patient has long history of this. She has had 4 bouts of vomiting today. No diarrhea. No fevers. I suspect noncompliance with her medications (insulin). Patient has poor peripheral access. We will consult with the PICC team. Patient will need to be admitted for hyperglycemia as her sugars are remaining high. Sugar in the ER is greater than 1000. Her pH is not acidotic. Pain did not IV hydration as well as an IV insulin drip. Critical care time of 35 minutes spent in medical management of fluid resuscitation of hyperglycemia greater than 1000. We also placed a PICC line that was placed by the PICC team.
[2017-09-06 14:42] LABS: Basophils % 0.6 %; Eosinophils # 0.1 K/mcL (0.0-0.6); Eosinophils % 1.8 %; Hematocrit 36.8 % (35.3-44.9); Hemoglobin 12.9 g/dL (11.5-15.4); Immature Granulocytes % 0.3 % (0-4); Lymphocytes # 0.9 K/mcL (0.6-4.6); Lymphocytes % 14.3 %; Mean Corpuscular HGB Conc 35.1 g/dL (31.6-35.5); Mean Corpuscular Hemoglobin 30.7 pg (28.0-33.3); Mean Corpuscular Volume 87.6 fL (83.0-100.0); Mean Platelet Volume 10.5 fL (9.4-12.4); Monocytes # 0.2 K/mcL (0.0-1.3); Monocytes % 2.4 %; Neutrophils # 5.1 K/mcL (1.6-8.9); Platelet Count 160 K/mcL (140-400); Red Cell Distribution Width 12.1 % (11.5-14.5); Segmented Neutrophils % 80.6 %
[2017-09-06 14:46] LABS: VBG HCO3 21 mEq/L (21-27); VBG PCO2 23 mmHg (41-51); VBG PH 7.56 pH Units (7.32-7.42); VBG PO2 119 mmHg (25-50)
[2017-09-06 14:52] LABS: Albumin 3.9 g/dL (3.5-5.7); Bilirubin,Total 0.6 mg/dL (0.3-1.0); Calcium 9.5 mg/dL (8.6-10.3); Carbon Dioxide 23 mEq/L (23-29); Chloride 92 mEq/L (98-107); Potassium 4.7 mEq/L (3.5-5.1); Sodium 125 mEq/L (136-145)
[2017-09-06 14:53] LABS: Beta-Hydroxybutyric Acid 0.93 mmol/L (0.02-0.27)
[2017-09-06] MEDS: 0.9 % Sodium Chloride 1,000 ML IVC SCH ×12 (15:11→23:52)
[2017-09-06 15:16] LABS: Alanine Aminotransferase 31 Units/L (7-52); Albumin/Globulin Ratio 1.1 (1.1-2.2); Alkaline Phosphatase 157 Units/L (34-104); Aspartate Amino Transferase 39 Units/L (13-39); BUN/Creatinine Ratio 18 (6-26); Blood Urea Nitrogen 20 mg/dL (6-20); Globulin 3.4 g/dL (2.4-3.5); Glucose 1006 mg/dL (70-105); Osmolality,Calculated 313 (280-300); Total Protein 7.3 g/dL (6.4-8.9); eGFR For African Americans > 60 (> 60); eGFR For Non-African Americans 56 (> 60)
[2017-09-06] MEDS ORDERED: *HR* Promethazine 25 MG/ML VIAL IVP ONE (15:17)
[2017-09-06 15:24] LABS: Ethanol < 10 mg/dL (0-10)
[2017-09-06] MEDS ORDERED: Insulin Human Regular 100 UNIT in 0.9 % Sodium Chloride 100 ML IVC SCH (15:30)
[2017-09-06] MEDS ORDERED: Naloxone 0.4 MG/ML INJ IVP PRN (16:30)
[2017-09-06] MEDS ORDERED: Ondansetron 4 MG/2 ML VIAL IVP PRN (16:30)
[2017-09-06] MEDS ORDERED: D5% in 0.45% NACL w KCl 20 MEQ/1,000 ML MLS IVC PRN (16:36)
[2017-09-06] MEDS ORDERED: D5% in 0.45% NACL 1,000 ML IVC PRN (16:36)
[2017-09-06] MEDS ORDERED: Acetaminophen 325 MG TABLET PO PRN (17:07)
--- NOTE | 2017-09-06 17:08 | Internal Med History&Physical ---
<Sonja Matson - Last Filed: 09/06/17 19:30> Date of Encounter: 09/06/17 Time of Encounter: 16:53 Assessment and Plan (1) Hyperosmolar nonketotic coma in diabetes Current visit: Yes Status: Acute 1 patient is a type I diabetic she is on an insulin pump-on review of records it appears that she has been noncompliant with insulin, today she presented to the ER after 2 days of nausea vomiting abdominal pain cough and upper respiratory symptoms. She had a blood sugar 1006. She initiated on IV fluids insulin pump stopped, and placed on insulin drip We will continue Accu-Cheks every hour as well as chemistries every 4 hours we will recheck her lactate Adjust fluids accordingly Monitor intake output Continuous cardiac monitoring Phenergan as needed for nausea We will begin a stair step regime of pain control we will swab for flu and obtain CXR check for infectious process (2) Borderline personality disorder Current visit: No Status: Suspected We will continue with Lamictal and Seroquel Ativan as needed (3) Asthma Current visit: No Status: Chronic presently stable we will continue with albuterol inhaler as needed Qualifiers: Asthma severity: mild Asthma persistence: intermittent Asthma complication type: uncomplicated Qualified Code(s): J45.20 - Mild intermittent asthma, uncomplicated (4) GERD (gastroesophageal reflux disease) Current visit: No Status: Chronic Protonix Qualifiers: Esophagitis presence: esophagitis presence not specified Qualified Code(s) : K21.9 - Gastro-esophageal reflux disease without esophagitis (5) HTN (hypertension) Current visit: No Status: Chronic Presently stable continue with home medication lisinopril Qualifiers: Hypertension type: essential hypertension Qualified Code(s): I10 - Essential (primary) hypertension (6) Tobacco abuse Current visit: No Status: Chronic Encouraged patient to stop smoking offer nicotine patch but declined at this time (7) DVT prophylaxis Current visit: No Status: Acute Lovenox subcutaneous Internal Medicine - H&P: HPI Chief complaint: NV Admitted From: Emergency Dept Plans for Post Hospital Care: Home History of present illness: Ms. Gaming is a 37 year old female ast history of asthma diabetes type 2 GERD hyperlipidemia hypertension current smoker. According to the patient for the past 2 days she has been experiencing upper respiratory symptoms with cough nonproductive productive and fever of 102, last night she began to express nausea vomiting and diarrhea as well as some upper abdominal pain. She woke up this morning checked her blood sugar and it was 500 she did bolus her insulin per insulin pump drinks a lot of water and rechecked and it was higher. She continued to vomit throughout the day she had a syncopal episode at her parents home and fell on the bed. She denies any urinary symptoms chest pain or shortness of breath. She presented to the ER with the above complaints. According to ER records lab work did reveal elevated blood sugar of 1006 anion gap is 10 no leukocytosis urinalysis was negative for UTI no acidosis noted. She was given IV fluids and initiated on insulin drip. Presently the patient continues to complain of diffuse upper abdominal pain tender to palpation. Patient requesting pain medication-request dilaudid -will administer stairstep pain regime-patient does have prior history of leaving AGAINST MEDICAL ADVICE when not receiving IV narcotics.I did review [facility] report 09/06/2015 I did review this case with Dr. Cheng who does agree with plan. Past Med Surg Social Fam HX - Past Medical History Medical history: asthma, diabetes, GERD, hyperlipidemia, hypertension, other Psychiatric history: anxiety, depression, panic disorder - Past Surgical History Surgical History: appendectomy, cholecystectomy, hysterectomy, knee replacement (Left), other (Zach in right shoulder/arm) - Social History Smoking Status: Current every day smoker Smokeless Tobacco Status: No Alcohol use: none Drug use: none - Family History Mother Family Member Ethnicity: Non- Living Status: Still Living Hx Family Cardiac Disorders: Yes (HTN, HLD) Hx Family Respiratory Disorders: Yes (Asthma) Father Family Member Ethnicity: Non- Living Status: Still Living Hx Family Cardiac Disorders: Yes (HTN, HLD) Hx Family Respiratory Disorders: Yes Hx Family GI Disorders: Yes (cirrhosis) Hx Family Endocrine Disorder: Yes (Cirrhosis) Hx Family Autoimmune Disorders: Yes (Alkylosing Spondylitis) Brother Family Member Ethnicity: Non- Living Status: Still Living Hx Family Endocrine Disorder: Yes (Pancreatitis, Cirrhosis) Sister Family Member Ethnicity: Non- Living Status: Still Living Grandfather Family Member Ethnicity: Non- Living Status: Hx Family Cardiac Disorders: Yes (NC, Stroke) Hx Family Endocrine Disorder: Yes (DM) Internal Medicine - H&P: Meds Lisinopril [Zestril] 10 mg PO DAILY 04/17/15 [History] Albuterol Sulfate [Albuterol Inhaler] 2 puff IH Q4HR PRN 06/19/15 [History] LORazepam [Ativan] 2 mg PO TID PRN 06/19/15 [History] Estradiol 2 mg PO DAILY 08/03/16 [History] Esomeprazole Magnesium [Nexium] 40 mg PO BID 08/23/16 [History] Levomefolate/B6/B12/Algal Oil [Metanx Capsule] 1 tab PO BID 07/11/17 [History] Orphenadrine [Norflex] 100 mg PO Q12H 07/13/17 [History] Promethazine [Phenergan] 12.5 mg PO Q8H PRN 07/13/17 [History] Gabapentin [Neurontin] 800 mg PO TID 08/09/17 [History] Quetiapine Fumarate [Seroquel] 25 - 50 mg PO HS 08/09/17 [History] Rosuvastatin [Crestor] 20 mg PO QPM 08/09/17 [History] Ergocalciferol (VITAMIN D2) [Vitamin D] 800 unit PO DAILY 09/06/17 [History] FLUoxetine HCl [Fluoxetine HCl] 80 mg PO Q48H 09/06/17 [History] FLUoxetine HCl [Prozac] 40 mg PO Q48H 09/06/17 [History] Subcutaneous Insulin Pump [T:Slim] 1 each MC AD 09/06/17 [History] lamoTRIgine [Lamictal] 100 mg PO QAM 09/06/17 [History] lamoTRIgine [Lamictal] 300 mg PO HS 09/06/17 [History] 3 Allergy/AdvReac Type Severity Reaction Status Date / Time Cortisone Allergy Anaphylaxis Verified 07/10/17 21:41 hydrocodone Allergy Anaphylaxis Verified 08/09/17 19:31 ketorolac [From Toradol] Allergy Anaphylaxis Verified 07/10/17 21:41 latex Allergy Hives Verified 07/10/17 21:41 metoclopramide [From Reglan] Allergy Anaphylaxis Verified 07/10/17 21:41 tramadol [From Ultram] AdvReac Nausea Verified 07/10/17 21:41 Zolpidem [From Ambien] AdvReac Insomnia Verified 11/11/17 21:41 All Systems PM: A 10-system review of systems was performed and is negative for pertinent findings except as documented above in the HPI. - Constitutional Vitals: Temp Pulse Resp BP Pulse Ox 98 F 93 18 154/89 96 09/06/17 13:21 09/06/17 13:21 09/06/17 13:21 09/06/17 13:21 09/06/17 13:21 Internal Med - H&P Results - Labs CBC & Chem 7: 09/06/17 14:31 09/06/17 14:31 Labs: Short CBC 09/06/17 Range/Units 14:31 WBC 6.3 (4.3-11.1) K/mcL Hgb 12.9 (11.5-15.4) g/dL Hct 36.8 (35.3-44.9) % Plt Count 160 (140-400) K/mcL Neutrophils # 5.1 (1.6-8.9) K/mcL BMP 09/06/17 14:31 Sodium 125 L Potassium 4.7 Chloride 92 L Carbon Dioxide 23 BUN 20 Creatinine 1.10 Glucose 1006 H* Calcium 9.5 Cardiac Enzymes 09/06/17 Range/Units 14:31 Troponin I < 0.03 (< 0.04) ng/mL Liver Function 09/06/17 Range/Units 14:31 Total Bilirubin 0.6 (0.3-1.0) mg/dL AST 39 (13-39) Units/L ALT 31 (7-52) Units/L Alkaline Phosphatase 157 H (34-104) Units/L Albumin 3.9 (3.5-5.7) g/dL Urine 09/06/17 Range/Units 13:15 Urine Color Yellow (Yellow) Urine Clarity Clear (Clear) Urine pH 7.0 (5.0-8.0) pH Units Ur Specific [place] 1.022 (1.010-1.025) Urine Protein Negative (Neg-Trace) mg/dL Urine Glucose (UA) >=1000 H (Normal) mg/dL - ABG Interpretation ABG results: 09/06/17 14:43 VBG pH 7.56 H VBG pCO2 23 L VBG pO2 119 H VBG HCO3 21 <Srinivas Fletcher H - Last Filed: 09/06/17 19:43> Date of Encounter: 09/06/17 Internal Medicine - H&P: HPI History of present illness: Ms. Gaming is a 37 year old female All Systems PM: A 10-system review of systems was performed and is negative for pertinent findings except as documented above in the HPI. - Constitutional Vitals: Temp Pulse Resp BP Pulse Ox 98.3 F 94 16 150/76 96 09/06/17 19:14 09/06/17 19:14 09/06/17 19:14 09/06/17 19:14 09/06/17 19:14 Internal Med - H&P Results - Labs CBC & Chem 7: 09/06/17 14:31 09/06/17 14:31 - ABG Interpretation ABG results: 09/06/17 18:11 VBG pH 7.39 D VBG pCO2 37 L VBG pO2 77 H VBG HCO3 22 - Attending Attestation 1. Hyperosmolar hyperglycemic nonketotic state Insulin drip, may start D5 with half-normal saline and 10 medical and social potassium at 150 mL/h once the glucose goes below 300 2. Acute bacterial bronchitis Chest x-ray to be checked, start azithromycin, may add additional antibiotics if pneumonia is found 3. Tobacco use, smoking cessation counseling Time spent is admission 40 minutes I have personally performed a face to face evaluation on this patient. I have reviewed and agree with the care plan. History and Exam by me shows:
[2017-09-06 18:14] LABS: VBG HCO3 22 mEq/L (21-27); VBG PCO2 37 mmHg (41-51); VBG PH 7.39 pH Units (7.32-7.42); VBG PO2 77 mmHg (25-50)
[2017-09-06 18:26] LABS: Magnesium 1.3 mg/dL (1.6-2.6)
[2017-09-06] MEDS: *HR* Heparin 5,000 UNIT/ML VIAL SQ SCH (20:04)
[2017-09-06] MEDS: Gabapentin 400 MG CAPSULE PO SCH (20:04)
[2017-09-06] MEDS: Azithromycin 500 MG in D5% in Water 250 ML IVPB SCH (20:05)
[2017-09-06] MEDS: lamoTRIgine 100 MG TABLET PO SCH (20:05)
[2017-09-06] MEDS: Orphenadrine 100 MG TABLET.ER PO SCH (20:06)
[2017-09-06] MEDS: 0.9 % Sodium Chloride w KCl 20 MEQ/1,000 ML MLS IVC SCH ×3 (20:38→23:03)
[2017-09-06] MEDS: *HR* Promethazine 25 MG/ML VIAL IVP PRN (22:08)
[2017-09-06 23:12] LABS: VBG HCO3 26 mEq/L (21-27); VBG PCO2 43 mmHg (41-51); VBG PH 7.39 pH Units (7.32-7.42); VBG PO2 181 mmHg (25-50)
[2017-09-06 23:19] LABS: BUN/Creatinine Ratio 18 (6-26); Blood Urea Nitrogen 17 mg/dL (6-20); Calcium 8.5 mg/dL (8.6-10.3); Carbon Dioxide 24 mEq/L (23-29); Chloride 102 mEq/L (98-107); Glucose 455 mg/dL (70-105); Osmolality,Calculated 299 (280-300); Sodium 134 mEq/L (136-145); eGFR For African Americans > 60 (> 60); eGFR For Non-African Americans > 60 (> 60)
[2017-09-06] MEDS: *HR* LORazepam 1 MG TABLET PO PRN (23:51)
[2017-09-06] MEDS: Nicotine 14 MG PATCH.TD24 TD SCH (23:51)
[2017-09-07] MEDS ORDERED: Magnesium Sulfate 1 GM in 0.9 % Sodium Chloride 50 ML IVPB ONE (00:07)
[2017-09-07] MEDS: 0.9 % Sodium Chloride w KCl 20 MEQ/1,000 ML MLS IVC SCH ×3 (01:01→02:35)
[2017-09-07 02:59] LABS: BUN/Creatinine Ratio 17 (6-26); Blood Urea Nitrogen 14 mg/dL (6-20); Calcium 8.1 mg/dL (8.6-10.3); Carbon Dioxide 24 mEq/L (23-29); Chloride 108 mEq/L (98-107); Glucose 255 mg/dL (70-105); Osmolality,Calculated 293 (280-300); Potassium 3.8 mEq/L (3.5-5.1); Sodium 137 mEq/L (136-145); eGFR For African Americans > 60 (> 60); eGFR For Non-African Americans > 60 (> 60)
[2017-09-07] MEDS ORDERED: Insulin DETEMIR 100 UNIT/ML X5UNITS SQ SCH (04:30)
[2017-09-07] MEDS: *HR* Heparin 5,000 UNIT/ML VIAL SQ SCH (06:02)
[2017-09-07] MEDS: Orphenadrine 100 MG TABLET.ER PO SCH ×2 (06:02→16:55)
[2017-09-07] MEDS: *HR* Promethazine 25 MG/ML VIAL IVP PRN ×5 (06:03→23:51)
[2017-09-07] MEDS ORDERED: Dextrose Gel 15 GM/37.5 ML TUBE PO PRN ×2 (07:17)
[2017-09-07] MEDS ORDERED: D5% in Water 1,000 ML IVC PRN (07:17)
[2017-09-07] MEDS: Insulin LISPRO 300 UNITS/3 ML VIAL SQ SCH ×5 (08:04→16:55)
[2017-09-07] MEDS: Gabapentin 400 MG CAPSULE PO SCH ×3 (08:04→21:31)
[2017-09-07] MEDS: lamoTRIgine 100 MG TABLET PO SCH ×2 (08:04→19:46)
[2017-09-07] MEDS: Nicotine 14 MG PATCH.TD24 TD SCH (08:05)
[2017-09-07] MEDS: *HR* HYDROmorphone (PF) 1 MG/ML SYRINGE IVP PRN ×3 (08:12→19:45)
[2017-09-07 08:35] LABS: BUN/Creatinine Ratio 20 (6-26); Blood Urea Nitrogen 21 mg/dL (6-20); Calcium 8.5 mg/dL (8.6-10.3); Carbon Dioxide 19 mEq/L (23-29); Chloride 98 mEq/L (98-107); Glucose 788 mg/dL (70-105); Osmolality,Calculated 313 (280-300); Sodium 131 mEq/L (136-145); eGFR For African Americans > 60 (> 60); eGFR For Non-African Americans 58 (> 60)
[2017-09-07] MEDS ORDERED: Pantoprazole 40 MG VIAL IVP SCH (09:00)
[2017-09-07 09:27] LABS: BUN/Creatinine Ratio 15 (6-26); Blood Urea Nitrogen 12 mg/dL (6-20); Carbon Dioxide 21 mEq/L (23-29); Chloride 110 mEq/L (98-107); Glucose 224 mg/dL (70-105); Osmolality,Calculated 293 (280-300); Potassium 3.7 mEq/L (3.5-5.1); Sodium 138 mEq/L (136-145); eGFR For African Americans > 60 (> 60); eGFR For Non-African Americans > 60 (> 60)
[2017-09-07] MEDS: *HR* LORazepam 1 MG TABLET PO PRN ×2 (10:02→21:31)
--- NOTE | 2017-09-07 10:14 | Internal Med Progress Note ---
<Sae Brito - Last Filed: 09/07/17 13:32> Date of Encounter: 09/07/17 Time of Encounter: 08:30 - Assessment and plan (1) Hyperosmolar nonketotic coma in diabetes Current Visit: Yes Status: Acute Assessment and plan: - Glucose as high as 1006 with anion gap of 10 on initial presentation in ED. - Likely due to dehydration as result of reported nausea/vomiting prior to admission. Patient may have underlying viral gastroenteritis leading to her nausea/vomiting. - Improves as patient's glucose 142 morning. - Continue basal and sliding scale insulin with close glucose and electrolyte monitoring. - Possible discharge tomorrow if patient continues to improve clinically. (2) Anemia Current Visit: Yes Status: Acute Assessment and plan: - Hgb dropped to 10.8 today, compared to 12.9 yesterday. - Likely dilutional given patient is net +2539 mL since admission. - Questionable GI bleed given patient reports having hematemesis, hematochezia and melena yesterday. - Will obtain stool occult test and recheck Hgb later today. - May consider GI consult if Hgb continues to drop and/or positive stool occult test. Qualifiers: Anemia type: other cause Other causes of anemia: other cause, not classified Qualified Code(s): D64.89 - Other specified anemias (3) Bronchitis Current Visit: Yes Status: Acute Assessment and plan: - Reported 2-day history of productive cough with fever 102. - CXR on 09/06/17 found no acute cardiopulmonary abnormality. - Will obtain sputum culture if possible. - Continue azithromycin (since 09/06/17). (4) Diabetes mellitus type 1 with complications Current Visit: No Status: Chronic Assessment and plan: - Glucose 142 this morning. - Continue basal and sliding scale insulin with close glucose monitoring. (5) Asthma Current Visit: No Status: Chronic Assessment and plan: - Continue bronchodilators. Qualifiers: Asthma severity: mild Asthma persistence: intermittent Asthma complication type: uncomplicated Qualified Code(s): J45.20 - Mild intermittent asthma, uncomplicated (6) GERD (gastroesophageal reflux disease) Current Visit: No Status: Chronic Assessment and plan: - Continue Protonix. Qualifiers: Esophagitis presence: esophagitis presence not specified Qualified Code(s) : K21.9 - Gastro-esophageal reflux disease without esophagitis (7) HTN (hypertension) Current Visit: No Status: Chronic Assessment and plan: - Blood pressure within normal range. - Continue current antihypertensive regimen. Qualifiers: Hypertension type: essential hypertension Qualified Code(s): I10 - Essential (primary) hypertension (8) Tobacco abuse Current Visit: No Status: Chronic Assessment and plan: - Smoking cessation counseling. - Continue nicotine patch. (9) DVT prophylaxis Current Visit: No Status: Acute - Subjective Interval history: Patient was seen and examined this morning. Patient reports nausea and vomiting improve but still complains of abdominal pain and back pain. Patient also states throwing up bright red blood and seeing bright red blood with very dark stool yesterday. Patient denies other sign of active bleeding. - Constitutional Vitals: Temp Pulse Resp BP Pulse Ox 97.9 F 78 16 143/81 97 09/07/17 07:34 09/07/17 08:29 09/07/17 07:34 09/07/17 07:34 09/07/17 07:34 General appearance: Present: cooperative, A&O X 3, no acute distress - Head Head exam: Present: normal inspection - Eye Eye exam: Present: EOMI, conjuntiva pink, sclera anicteric - Neck Neck exam general surgery: Present: normal inspection, supple, trachea midline - Respiratory Respiratory exam: Present: CTAB. Absent: accessory muscle use - Cardiovascular Cardiovascular exam: Present: RRR, +S1, +S2 - GI/Abdominal GI/Abdominal exam: Present: normal bowel sounds, soft, tenderness (Diffuse), no peritoneal signs. Absent: guarding - Extremities Exam Extremities exam: Present: pedal edema (Mild), warm. Absent: cyanotic - Neurological Exam Neurological exam: Present: alert. Absent: facial droop, speech deficit - Skin Skin exam: Present: dry, warm Internal Medicine: Result - Labs CBC & Chem 7: 09/07/17 09:50 09/07/17 09:50 Labs: BMP 09/06/17 09/06/17 09/07/17 19:04 22:50 02:00 Sodium 134 L 137 Potassium 4.0 3.8 Chloride 102 108 H Carbon Dioxide 24 24 BUN 17 14 Creatinine 0.96 0.82 Glucose 836 H* 455 H 255 H Calcium 8.5 L 8.1 L 09/07/17 06:50 Sodium 138 Potassium 3.7 Chloride 110 H Carbon Dioxide 21 L BUN 12 Creatinine 0.78 Glucose 224 H Calcium 8.0 L - Impressions Impressions Chest X-Ray 09/06/17 19:25 IMPRESSION: No acute process. D/ / Pedrito Avilez MD / Pedrito Avilez MD Interpreting Provider: Pedrito Avilez MD Consult Discharge Plan - Plan Referrals: Marielena Baltazar CNP [Advanced Practice Nurse] - 09/13/17 10:00 am Domingo Humphrey DO [Primary Care Provider] - (sent web request on 09-07-17 @ [phone] ) <Jovana Clark - Last Filed: 09/07/17 17:56> Date of Encounter: 09/07/17 - Constitutional Vitals: Temp Pulse Resp BP Pulse Ox 98.0 F 87 17 136/86 97 09/07/17 16:31 09/07/17 16:31 09/07/17 16:31 09/07/17 16:31 09/07/17 16:31 Internal Medicine: Result - Labs CBC & Chem 7: 09/07/17 09:50 09/07/17 09:50 Labs: Short CBC 09/07/17 Range/Units 09:50 WBC 6.0 (4.3-11.1) K/mcL Hgb 10.8 L D (11.5-15.4) g/dL Hct 31.3 L (35.3-44.9) % Plt Count 170 (140-400) K/mcL Neutrophils # 2.4 (1.6-8.9) K/mcL BMP 09/06/17 09/06/17 09/07/17 19:04 22:50 02:00 Sodium 134 L 137 Potassium 4.0 3.8 Chloride 102 108 H Carbon Dioxide 24 24 BUN 17 14 Creatinine 0.96 0.82 Glucose 836 H* 455 H 255 H Calcium 8.5 L 8.1 L 09/07/17 09/07/17 06:50 09:50 Sodium 138 139 Potassium 3.7 3.6 Chloride 110 H 110 H Carbon Dioxide 21 L 24 BUN 12 11 Creatinine 0.78 0.78 Glucose 224 H 142 H Calcium 8.0 L 8.5 L - Impressions Impressions Chest X-Ray 09/06/17 19:25 IMPRESSION: No acute process. D/ / Pedrito Avilez MD / Pedrito Avilez MD Interpreting Provider: Pedrito Avilez MD - Attending Attestation I examined this patient and my medical decision-making was reviewed with the Resident Physician Dr. Brito. I agree with the documented findings, disposition and treatment plan as described except to the extent set forth below. 37 y/o F admitted with acute hyperglycemic hyperosmolar state. Denied any CP / SOB. Still has N/V. Gen: A, A, O x3.. Lethargic Chest: CTA Abd: Soft, NT Heart; S1S2+ a/p 1. Acute Hyperglycemic hyperosmolar state Improved switched to ISS Held Levemir since her BS running low and her PO intake still poor counseled about medication compliance
[2017-09-07 10:41] LABS: Basophils % 0.7 %; Eosinophils # 0.4 K/mcL (0.0-0.6); Eosinophils % 6.9 %; Hematocrit 31.3 % (35.3-44.9); Immature Granulocytes % 0.2 % (0-4); Lymphocytes # 2.8 K/mcL (0.6-4.6); Lymphocytes % 47.2 %; Mean Corpuscular HGB Conc 34.5 g/dL (31.6-35.5); Mean Corpuscular Hemoglobin 30.9 pg (28.0-33.3); Mean Corpuscular Volume 89.4 fL (83.0-100.0); Mean Platelet Volume 11.2 fL (9.4-12.4); Monocytes # 0.3 K/mcL (0.0-1.3); Monocytes % 4.2 %; Neutrophils # 2.4 K/mcL (1.6-8.9); Platelet Count 170 K/mcL (140-400); Red Cell Distribution Width 12.9 % (11.5-14.5); Segmented Neutrophils % 40.8 %
[2017-09-07 10:42] LABS: Hemoglobin 10.8 g/dL (11.5-15.4)
[2017-09-07 12:17] LABS: BUN/Creatinine Ratio 14 (6-26); Blood Urea Nitrogen 11 mg/dL (6-20); Calcium 8.5 mg/dL (8.6-10.3); Carbon Dioxide 24 mEq/L (23-29); Chloride 110 mEq/L (98-107); Glucose 142 mg/dL (70-105); Osmolality,Calculated 290 (280-300); Potassium 3.6 mEq/L (3.5-5.1); Sodium 139 mEq/L (136-145); eGFR For African Americans > 60 (> 60); eGFR For Non-African Americans > 60 (> 60)
[2017-09-07] MEDS: *HR* Dextrose 50 % in Water (Syg) 50 ML SYRINGE IVP PRN ×2 (12:59→13:52)
[2017-09-07] MEDS: Azithromycin 500 MG in D5% in Water 250 ML IVPB SCH (19:45)
--- NOTE | 2017-09-07 20:16 | Electrocardiograph Report ---
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
[2017-09-07] MEDS ORDERED: Insulin LISPRO 300 UNITS/3 ML VIAL SQ ONE (23:41)
[2017-09-08] MEDS: *HR* HYDROmorphone (PF) 1 MG/ML SYRINGE IVP PRN ×4 (00:24→12:50)
[2017-09-08] MEDS: *HR* Promethazine 25 MG/ML VIAL IVP PRN ×3 (04:37→12:50)
[2017-09-08] MEDS: Orphenadrine 100 MG TABLET.ER PO SCH ×2 (04:41→17:23)
[2017-09-08 05:06] LABS: Basophils % 0.5 %; Eosinophils # 0.3 K/mcL (0.0-0.6); Eosinophils % 5.9 %; Hematocrit 30.5 % (35.3-44.9); Hemoglobin 10.3 g/dL (11.5-15.4); Immature Granulocytes % 0.2 % (0-4); Lymphocytes # 2.4 K/mcL (0.6-4.6); Mean Corpuscular HGB Conc 33.8 g/dL (31.6-35.5); Mean Corpuscular Hemoglobin 30.4 pg (28.0-33.3); Mean Platelet Volume 10.1 fL (9.4-12.4); Monocytes # 0.3 K/mcL (0.0-1.3); Monocytes % 5.6 %; Neutrophils # 2.6 K/mcL (1.6-8.9); Platelet Count 181 K/mcL (140-400); Red Blood Count 3.39 M/mcL (3.82-4.97); Red Cell Distribution Width 12.9 % (11.5-14.5); Segmented Neutrophils % 45.8 %
[2017-09-08 05:25] LABS: BUN/Creatinine Ratio 12 (6-26); Blood Urea Nitrogen 10 mg/dL (6-20); Calcium 8.5 mg/dL (8.6-10.3); Carbon Dioxide 28 mEq/L (23-29); Chloride 107 mEq/L (98-107); Glucose 254 mg/dL (70-105); Osmolality,Calculated 292 (280-300); Potassium 4.2 mEq/L (3.5-5.1); Sodium 137 mEq/L (136-145); eGFR For African Americans > 60 (> 60); eGFR For Non-African Americans > 60 (> 60)
[2017-09-08] MEDS: lamoTRIgine 100 MG TABLET PO SCH ×3 (07:34→23:04)
[2017-09-08] MEDS: Gabapentin 400 MG CAPSULE PO SCH ×5 (07:34→23:03)
[2017-09-08] MEDS: Nicotine 14 MG PATCH.TD24 TD SCH (07:34)
[2017-09-08] MEDS: FLUoxetine 20 MG CAPSULE PO SCH (07:34)
[2017-09-08] MEDS: *HR* LORazepam 1 MG TABLET PO PRN ×3 (07:40→23:53)
[2017-09-08] MEDS ORDERED: Magnesium Sulfate 1 GM in D5% in Water 100 ML IVPB ONE (08:01)
[2017-09-08] MEDS ORDERED: Pantoprazole 40 MG VIAL IVP SCH (08:45)
[2017-09-08] MEDS: Insulin LISPRO 300 UNITS/3 ML VIAL SQ SCH ×3 (08:46→17:23)
--- NOTE | 2017-09-08 09:55 | Internal Med Progress Note ---
<Sae Brito - Last Filed: 09/08/17 10:45> Date of Encounter: 09/08/17 Time of Encounter: 08:00 - Assessment and plan (1) GI bleed Current Visit: Yes Status: Acute Assessment and plan: - Patient reports having hematemesis, hematochezia and melena. - Stool occult test positive for blood. - Start Protonix 40 mg IV BID and hold all anticoagulation. - GI consulted and appreciate recommendation and possible scope. Per patient, she has not eaten since last night. Continue NPO for now. Qualifiers: GI bleed type/associated pathology: gastrointestinal hemorrhage with hematemesis Qualified Code(s): K92.0 - Hematemesis (2) Anemia Current Visit: Yes Status: Acute Assessment and plan: - Hgb 12.9 on admission but dropped to 10.8 next day. Hgb dropped slightly to 10.3 today. - Likely secondary GI bleed with some component of dilution as patient received good amount IV fluid on admission. - Continue to monitor closely. Consider pRBC transfusion if Hgb < 7. Qualifiers: Anemia type: other cause Other causes of anemia: other cause, not classified Qualified Code(s): D64.89 - Other specified anemias (3) Hyperosmolar nonketotic coma in diabetes Current Visit: Yes Status: Acute Assessment and plan: - Glucose as high as 1006 with anion gap of 10 on initial presentation in ED. - Likely due to dehydration as result of reported nausea/vomiting prior to admission. Patient may have underlying gastroenteritis leading to her nausea/ vomiting. - Improves as patient's glucose 254 morning. - Continue sliding scale insulin with close glucose and electrolyte monitoring. (4) Bronchitis Current Visit: Yes Status: Acute Assessment and plan: - Reported 2-day history of productive cough with fever 102. - CXR on 09/06/17 found no acute cardiopulmonary abnormality. - Rapid influenza test negative. - Will obtain sputum culture if possible. - Continue azithromycin (since 09/06/17) and bronchodilators. (5) Diabetes mellitus type 1 with complications Current Visit: No Status: Chronic Assessment and plan: - Glucose 254 this morning. - Continue basal and sliding scale insulin with close glucose monitoring. (6) Asthma Current Visit: No Status: Chronic Assessment and plan: - Continue bronchodilators. Qualifiers: Asthma severity: mild Asthma persistence: intermittent Asthma complication type: uncomplicated Qualified Code(s): J45.20 - Mild intermittent asthma, uncomplicated (7) GERD (gastroesophageal reflux disease) Current Visit: No Status: Chronic Assessment and plan: - Increase to Protonix 40 mg IV BID. Qualifiers: Esophagitis presence: esophagitis presence not specified Qualified Code(s) : K21.9 - Gastro-esophageal reflux disease without esophagitis (8) HTN (hypertension) Current Visit: No Status: Chronic Assessment and plan: - Blood pressure within normal range most of time. - Continue current antihypertensive regimen. Qualifiers: Hypertension type: essential hypertension Qualified Code(s): I10 - Essential (primary) hypertension (9) Tobacco abuse Current Visit: No Status: Chronic Assessment and plan: - Smoking cessation counseling. - Continue nicotine patch. (10) DVT prophylaxis Current Visit: No Status: Acute Assessment and plan: - Start EPCD as mechanical DVT prophylaxis. Discontinue anticoagulation at this time given current GI bleed. - Subjective Interval history: Patient was seen and examined this morning. Patient reports still having nausea and vomiting consisted green vomitus with some bright red blood. Patient also reports having bright red blood with very dark stool and her last bowel movement was watery this morning. Patient still has some cough but denies significant shortness of breath or chest pain. - Constitutional Vitals: Temp Pulse Resp BP Pulse Ox 97.5 F L 68 17 145/82 97 09/08/17 07:20 09/08/17 07:42 09/08/17 07:20 09/08/17 07:20 09/08/17 07:20 General appearance: Present: cooperative, A&O X 3, no acute distress - Head Head exam: Present: normal inspection - Eye Eye exam: Present: EOMI, conjuntiva pink, sclera anicteric - Neck Neck exam general surgery: Present: normal inspection, supple, trachea midline - Respiratory Respiratory exam: Absent: accessory muscle use - Cardiovascular Cardiovascular exam: Present: RRR, +S1, +S2 - GI/Abdominal GI/Abdominal exam: Present: normal bowel sounds, soft, tenderness (Epigastric and left lower quadrant) - Extremities Exam Extremities exam: Present: pedal edema (Mild), warm. Absent: cyanotic - Neurological Exam Neurological exam: Present: alert. Absent: facial droop, speech deficit - Skin Skin exam: Present: dry, warm Internal Medicine: Result - Labs CBC & Chem 7: 09/08/17 04:45 09/08/17 04:45 Labs: Short CBC 09/07/17 09/08/17 Range/Units 09:50 04:45 WBC 6.0 5.7 (4.3-11.1) K/mcL Hgb 10.8 L D 10.3 L (11.5-15.4) g/dL Hct 31.3 L 30.5 L (35.3-44.9) % Plt Count 170 181 (140-400) K/mcL Neutrophils # 2.4 2.6 (1.6-8.9) K/mcL BMP 09/07/17 09/08/17 09:50 04:45 Sodium 139 137 Potassium 3.6 4.2 Chloride 110 H 107 Carbon Dioxide 24 28 BUN 11 10 Creatinine 0.78 0.83 Glucose 142 H 254 H Calcium 8.5 L 8.5 L - Impressions Impressions Abdomen/Pelvis CT 09/08/17 08:00 IMPRESSION: Negative noncontrast CT examination of the abdomen and pelvis with no evidence for acute process. D/ / Nneka Leon MD / Nneka Leon MD Interpreting Provider: Nneka Leon MD Consult Discharge Plan - Plan Referrals: Marielena Baltazar, JOVANY [Advanced Practice Nurse] - 09/13/17 10:00 am Iqra Crockett [Advanced Practice Nurse] - (SENT WEB REQUEST ON 09-08-17 @ [phone] ) Domingo Humphrey DO [Primary Care Provider] - (sent web request on 09-07-17 @ [phone] ) <Jovana Clark - Last Filed: 09/08/17 18:36> Date of Encounter: 09/08/17 - Constitutional Vitals: Temp Pulse Resp BP Pulse Ox 97.7 F 77 18 142/91 95 09/08/17 15:05 09/08/17 15:05 09/08/17 15:05 09/08/17 15:05 09/08/17 15:05 Internal Medicine: Result - Labs CBC & Chem 7: 09/08/17 13:20 09/08/17 04:45 Labs: Short CBC 09/08/17 09/08/17 Range/Units 04:45 13:20 WBC 5.7 (4.3-11.1) K/mcL Hgb 10.3 L 11.0 L (11.5-15.4) g/dL Hct 30.5 L 31.9 L (35.3-44.9) % Plt Count 181 (140-400) K/mcL Neutrophils # 2.6 (1.6-8.9) K/mcL BMP 09/08/17 04:45 Sodium 137 Potassium 4.2 Chloride 107 Carbon Dioxide 28 BUN 10 Creatinine 0.83 Glucose 254 H Calcium 8.5 L - Impressions Impressions Abdomen/Pelvis CT 09/08/17 08:00 IMPRESSION: Negative noncontrast CT examination of the abdomen and pelvis with no evidence for acute process. D/ / Nneka Leon MD / Nneka Leon MD Interpreting Provider: Nneka Leon MD - Attending Attestation I examined this patient and my medical decision-making was reviewed with the Resident Physician Dr. Brito. I agree with the documented findings, disposition and treatment plan as described except to the extent set forth below. 37 y/o F admitted with acute hyperglycemic hyperosmolar state. Denied any CP / SOB. Still has N/V. Gen: A, A, O x3.. Lethargic Chest: CTA Abd: Soft, NT Heart; S1S2+ a/p 1. Acute Hyperglycemic hyperosmolar state Improved Cont ISS Resumed levemir since her BS improved now 2. Acute gastroparesis 3. GI bleed with hemoccult positive stable Hb so far s/p EGD- WNL switched to PO PPI CT of Abd- Benign
[2017-09-08] MEDS ORDERED: Lidocaine -MPF 2% 2 ML VIAL ONE (10:37)
[2017-09-08] MEDS ORDERED: *HR* Propofol 200 MG/20 ML VIAL IVP ONE (10:37)
--- NOTE | 2017-09-08 10:39 | Anesthesia Evaluation PreOp ---
Date of Encounter: 09/08/17 Time of Encounter: 10:35 - Past History Planned Operation: EGD Cardiac History: HTN, Hyperlipidemia Pulmonary History: Smoker HEAD IRRIGATOR History: Denies Any Significant HX Other Medical History: Diabetes Type I, Other (Borderline Personality) Anesthesia History: No Prior Anesthetic Complications : No Test: Negative Alcohol Use: none Drug use: none Medications and Allergies Lisinopril [Zestril] 10 mg PO DAILY 04/17/15 [History] Albuterol Sulfate [Albuterol Inhaler] 2 puff IH Q4HR PRN 06/19/15 [History] LORazepam [Ativan] 2 mg PO TID PRN 06/19/15 [History] Estradiol 2 mg PO DAILY 08/03/16 [History] Esomeprazole Magnesium [Nexium] 40 mg PO BID 08/23/16 [History] Levomefolate/B6/B12/Algal Oil [Metanx Capsule] 1 tab PO BID 07/11/17 [History] Orphenadrine [Norflex] 100 mg PO Q12H 07/13/17 [History] Promethazine [Phenergan] 12.5 mg PO Q8H PRN 07/13/17 [History] Gabapentin [Neurontin] 800 mg PO TID 08/09/17 [History] Quetiapine Fumarate [Seroquel] 25 - 50 mg PO HS 08/09/17 [History] Rosuvastatin [Crestor] 20 mg PO QPM 08/09/17 [History] Ergocalciferol (VITAMIN D2) [Vitamin D] 800 unit PO DAILY 09/06/17 [History] FLUoxetine HCl [Fluoxetine HCl] 80 mg PO Q48H 09/06/17 [History] FLUoxetine HCl [Prozac] 40 mg PO Q48H 09/06/17 [History] Subcutaneous Insulin Pump [T:Slim] 1 each MC AD 09/06/17 [History] lamoTRIgine [Lamictal] 100 mg PO QAM 09/06/17 [History] lamoTRIgine [Lamictal] 300 mg PO HS 09/06/17 [History] 3 Allergy/AdvReac Type Severity Reaction Status Date / Time Cortisone Allergy Anaphylaxis Verified 07/10/17 21:41 hydrocodone Allergy Anaphylaxis Verified 08/09/17 19:31 ketorolac [From Toradol] Allergy Anaphylaxis Verified 07/10/17 21:41 latex Allergy Hives Verified 07/10/17 21:41 metoclopramide [From Reglan] Allergy Anaphylaxis Verified 07/10/17 21:41 tramadol [From Ultram] AdvReac Nausea Verified 07/10/17 21:41 Zolpidem [From Ambien] AdvReac Insomnia Verified 07/10/17 21:41 Anesthesia Results - Labs 09/08/17 04:45 09/08/17 04:45 Laboratory Tests 08/10/17 09/06/17 09/08/17 06:33 13:15 04:45 Hgb 10.3 L Hct 30.5 L Plt Count 181 Sodium Potassium BUN Creatinine Hemoglobin A1c 7.7 H Urine Test Negative 09/08/17 04:45 Hgb Hct Plt Count Sodium 137 Potassium 4.2 BUN 10 Creatinine 0.83 Hemoglobin A1c Urine Test Anesthesia Exam O2 Sat Weight 81.63 kg O2 Sat by Pulse Oximetry 97 O2 Sat by Pulse Oximetry 98 O2 Sat by Pulse Oximetry 98 O2 Sat by Pulse Oximetry 97 O2 Sat by Pulse Oximetry 97 O2 Sat by Pulse Oximetry 97 O2 Sat by Pulse Oximetry 99 O2 Sat by Pulse Oximetry 97 O2 Sat by Pulse Oximetry 98 Vital Signs Temp Pulse Resp BP Pulse Ox 98 F 93 18 154/89 96 09/06/17 13:21 09/06/17 13:21 09/06/17 13:21 09/06/17 13:21 09/06/17 13:21 Height: 5'8 Weight: 179 lbs NPO (# of Hours): MN Pain Scale: 0 - HEENT Pupil (Motor): Pupils equal, EOMI Mallampati: II Oral Opening: Greater than 3 - HEAD IRRIGATOR LOC: Oriented HEAD IRRIGATOR Motor: Normal RUE, Normal LUE, Normal RLE, Normal LLE, Normal Face HEAD IRRIGATOR Sensory: Normal: RUE, LUE, RLE, LLE, Face - Cardiac Rhythm: Regular Murmur: None JVD: No Carotid Bruit: No - Pulmonary Breath Sounds: bilateral Clear Respiratory Effort: Symmetrical Anesthesia Assess/Plan ASA Score: 3 (HTN DM) Modified Norris Scale for Level of Consciousness: Cooperative, oriented, and tranquil Anesthetic Plan: MAC Monitoring Plan: Standard Monitors Recovery Plan: Other (Discussed GA, agrees to proceed)
--- NOTE | 2017-09-08 11:11 | Anesthesia Evaluation Post Op ---
Date of Encounter: 09/08/17 Time of Encounter: 11:10 - Vital Signs Vital Signs: Vital Signs/O2 Sat, Most Current Temp Pulse Resp BP Pulse Ox 98.4 F 83 16 157/98 99 09/08/17 10:46 09/08/17 10:46 09/08/17 10:46 09/08/17 10:46 09/08/17 10:46 - Lungs Lungs: Clear Ascult./Percussion - Airway Airway: Non-obstructed - Cardiovascular Regular Rate - Mental Status Mental Status: Alert & Oriented, Answers Appropriately - Pain Pain Scale: 1 Pain Scale used: Numeric (1 - 10) - Nausea Vomiting Nausea Vomiting: Not Present - Hydration Hydration: NPO, Has not voided - Discharge PostOp Status: Transfer Patient to floor (awake, oriented, no anesthetic complicATIONS, DISCHAGE TO FLOOR)
--- NOTE | 2017-09-08 12:29 | Gastroenterology Consult Note ---
<CamillaMahesh Gunter - Last Filed: 09/08/17 12:27> Date of Encounter: 09/08/17 Time of Encounter: 10:30 - Assessment and plan (1) GI bleed Current Visit: Yes Status: Acute Assessment and plan: Pt reports hematemesis and dark stools. Plan for EGD today to r/o esophagitis, gastritis, duodenitis, PUD, MW tear, or AVM. Continue PPI. Qualifiers: GI bleed type/associated pathology: gastrointestinal hemorrhage with hematemesis Qualified Code(s): K92.0 - Hematemesis (2) Abdominal pain Current Visit: No Status: Acute Assessment and plan: Pt with epigastric abdominal pain. Continue PPI and plan for EGD today. Patient educated regarding lifestyle modifications including: (1) avoidance of foods that may precipitate reflux (eg, coffee, alcohol, chocolate, fatty foods). (2) avoidance of acidic foods that may precipitate heartburn (eg, citrus, carbonated drinks, spicy foods). (3) adoption of behaviors that may reduce esophageal acid exposure (see weight loss, smoking cessation, raising the head of the bed, and avoiding recumbency for 2-3 hours after meals). Qualifiers: Abdominal location: left upper quadrant Qualified Code(s): R10.12 - Left upper quadrant pain (3) Nausea & vomiting Current Visit: No Status: Acute Assessment and plan: Continue antiemetics. Qualifiers: Vomiting type: unspecified Vomiting Intractability: non-intractable Qualified Code(s): R11.2 - Nausea with vomiting, unspecified - Time Spent With Patient Total time spent is greater than 50% in coordination of care (as documented) at patient's floor/unit and/or counseling patient: GI History of Present Illness - Data of Consult Patient: new to practice Consult date: 09/08/17 Requesting Physician: Sherman Adames DO - Consult Narrative Reason for consult: BRBPR, hematemesis History of present illness: Ms. Gaming is a 37 year old female with PMHx of asthma, DM, GERD, HLD, HTN who presented to the ED with c/o hyperglycemia, nausea, vomiting, and diarrhea. She woke up this morning checked her blood sugar and it was 500 she did bolus her insulin per insulin pump drinks a lot of water and rechecked and it was higher. She continued to vomit throughout the day she had a syncopal episode at her parents home and fell on the bed. She complained of upper abdominal pain. Glucose 1006 on admission, and was started on IV fluids and insulin drip. We were consulted due to pt reporting bright red blood with vomiting and very dark stool. CT A/P negative. Fecal occult blood test positive. She has a prior history of leaving AGAINST MEDICAL ADVICE without receiving IV narcotics. Procedures: EGD 01/13/2013 Dr. Hardin: Gastroparesis, hiatal hernia, Botox injection. EGD 10/05/2012 Dr. Hardin: Gastritis, s/p dilation Colonoscopy 06/04/2011 Dr. Mccoy: Normal NSAIDs: None Anticoagulation: None Past Med Surg Social Fam HX - Past Medical History Medical history: asthma, diabetes, GERD, hyperlipidemia, hypertension, other Psychiatric history: anxiety, depression, panic disorder - Past Surgical History Surgical History: appendectomy, cholecystectomy, hysterectomy, knee replacement , other - Social History Smoking Status: Current every day smoker Smokeless Tobacco Status: No Alcohol use: none Drug use: none - Family History Mother Family Member Ethnicity: Non- Living Status: Still Living Hx Family Cardiac Disorders: Yes (HTN, HLD) Hx Family Respiratory Disorders: Yes (Asthma) Father Family Member Ethnicity: Non- Living Status: Still Living Hx Family Cardiac Disorders: Yes (HTN, HLD) Hx Family Respiratory Disorders: Yes Hx Family GI Disorders: Yes (cirrhosis) Hx Family Endocrine Disorder: Yes (Cirrhosis) Hx Family Autoimmune Disorders: Yes (Alkylosing Spondylitis) Brother Family Member Ethnicity: Non- Living Status: Still Living Hx Family Endocrine Disorder: Yes (Pancreatitis, Cirrhosis) Sister Family Member Ethnicity: Non- Living Status: Still Living Grandfather Family Member Ethnicity: Non- Living Status: Hx Family Cardiac Disorders: Yes (OR, Stroke) Hx Family Endocrine Disorder: Yes (DM) - Gastrointestinal Gastrointestinal: Present: as per HPI - Constitutional Constitutional: as per HPI - EENT Eyes: as per HPI Ears: Present: as per HPI Nose, mouth and throat: Present: as per HPI - Cardiovascular Cardiovascular ROS: Present: as per HPI - Respiratory Respiratory IM: Present: as per HPI - Genitourinary Genitourinary: Absent: change in color, Urinary frequency - Neurological ROS Neurological GI: Present: as per HPI - Hematologic/Lymphatic Hematologic/Lymphatic pediatric: Present: as per HPI - Musculoskeletal Musculoskeletal ROS GI: Present: as per HPI - Integumentary Integumentary GI: Present: as per HPI - Psychiatric ROS Psychiatric GI: Present: as per HPI - Endocrine Endocrine IM: Present: as per HPI - Constitutional Vitals: Temp Pulse Resp BP Pulse Ox 97.9 F 77 16 144/92 94 09/08/17 11:28 09/08/17 11:28 09/08/17 11:28 09/08/17 11:28 09/08/17 11:28 General appearance: Present: cooperative, A&O X 3, no acute distress, answers questions appropriately - Head Head exam: Present: atraumatic, normocephalic - Eye Eye exam: Present: normal appearance, sclera anicteric - ENT ENT exam: Present: mucous membranes dry - Neck Neck exam general surgery: Present: normal inspection, trachea midline - Respiratory Respiratory exam: Present: CTAB. Absent: rales, rhonchi - Cardiovascular Cardiovascular exam: Present: RRR, +S1, +S2 - GI/Abdominal GI/Abdominal exam: Present: soft, tenderness (epigastric), no peritoneal signs. Absent: distended, firm, guarding - Rectal Rectal exam: Present: deferred - Extremities Exam Extremities exam: Present: warm - Neurological Exam Neurological exam: Present: no focal deficits - Psychiatric Psychiatric exam: Present: normal affect, normal mood - Skin Skin exam: Present: dry, intact, normal color, warm Results - Labs CBC & Chem 7: 09/08/17 04:45 09/08/17 04:45 Labs: Last Result Calcium 8.5 mg/dL (8.6-10.3) L 09/08/17 04:45 Troponin I < 0.03 ng/mL (< 0.04) 09/06/17 14:31 Stool Occult Blood Positive (Negative) A 09/07/17 22:20 Urine Opiates Screen Negative ng/mL (Miqlid=568) 09/06/17 13:15 Entire Visit Hgb 10.3 g/dL (11.5-15.4) L 09/08/17 04:45 Hct 30.5 % (35.3-44.9) L 09/08/17 04:45 Total Bilirubin 0.6 mg/dL (0.3-1.0) 09/06/17 14:31 AST 39 Units/L (13-39) 09/06/17 14:31 ALT 31 Units/L (7-52) 09/06/17 14:31 Lipase 5 Units/L (11-82) L 09/07/17 09:50 - Impressions Impressions Abdomen/Pelvis CT 09/08/17 08:00 IMPRESSION: Negative noncontrast CT examination of the abdomen and pelvis with no evidence for acute process. D/ / Nneka Leon MD / Nneka Leon MD Interpreting Provider: Nneka Leon MD Consult Discharge Plan - Plan Referrals: Marielena Baltazar CNP [Advanced Practice Nurse] - 09/13/17 10:00 am Iqra Crockett [Advanced Practice Nurse] - (SENT WEB REQUEST ON 09-08-17 @ [phone] ) Domingo Humphrey DO [Primary Care Provider] - (sent web request on 09-07-17 @ [phone] ) <Haseeb Hardin - Last Filed: 09/08/17 17:34> Date of Encounter: 09/08/17 Time of Encounter: 11:00 - Time Spent With Patient Total time spent is greater than 50% in coordination of care (as documented) at patient's floor/unit and/or counseling patient: GI History of Present Illness - Data of Consult Requesting Physician: Sherman Adames DO - Consult Narrative History of present illness: Ms. Gaming is a 37 year old female - Constitutional Vitals: Temp Pulse Resp BP Pulse Ox 97.7 F 77 18 142/91 95 09/08/17 15:05 09/08/17 15:05 09/08/17 15:05 09/08/17 15:05 09/08/17 15:05 Results - Labs CBC & Chem 7: 09/08/17 13:20 09/08/17 04:45 Labs: Last Result Calcium 8.5 mg/dL (8.6-10.3) L 09/08/17 04:45 Troponin I < 0.03 ng/mL (< 0.04) 09/06/17 14:31 Stool Occult Blood Positive (Negative) A 09/07/17 22:20 Urine Opiates Screen Negative ng/mL (Dmdwrf=161) 09/06/17 13:15 Entire Visit Hgb 11.0 g/dL (11.5-15.4) L 09/08/17 13:20 Hct 31.9 % (35.3-44.9) L 09/08/17 13:20 Total Bilirubin 0.6 mg/dL (0.3-1.0) 09/06/17 14:31 AST 39 Units/L (13-39) 09/06/17 14:31 ALT 31 Units/L (7-52) 09/06/17 14:31 Lipase 5 Units/L (11-82) L 09/07/17 09:50 - Impressions Impressions Abdomen/Pelvis CT 09/08/17 08:00 IMPRESSION: Negative noncontrast CT examination of the abdomen and pelvis with no evidence for acute process. D/ / Nneka Leon MD / Nneka Leon MD Interpreting Provider: Nneka Leon MD - Attending Attestation I examined this patient and my medical decision-making was reviewed with the Resident Physician. I agree with the documented findings, disposition and treatment plan as described except to the extent set forth below.
[2017-09-08 13:26] LABS: Hematocrit 31.9 % (35.3-44.9)
[2017-09-08] MEDS ORDERED: Ondansetron 4 MG/2 ML VIAL IVP PRN (14:18)
[2017-09-08] MEDS: *HR* Morphine 2 MG/ML SYRINGE IVP PRN ×3 (18:04→23:14)
[2017-09-08] MEDS: Insulin DETEMIR 100 UNIT/ML X5UNITS SQ SCH (20:06)
[2017-09-08] MEDS ORDERED: *HR* Promethazine 25 MG/ML VIAL IVPB ONE (22:34)
[2017-09-08] MEDS ORDERED: Promethazine 12.5 MG in 0.9 % Sodium Chloride 50 ML IVPB ONE (22:45)
[2017-09-08] MEDS ORDERED: Insulin LISPRO 300 UNITS/3 ML VIAL SQ ONE (23:41)
[2017-09-09] MEDS: *HR* Morphine 2 MG/ML SYRINGE IVP PRN ×4 (04:35→18:09)
[2017-09-09] MEDS: Orphenadrine 100 MG TABLET.ER PO SCH ×2 (04:35→18:10)
[2017-09-09 05:31] LABS: Basophils % 0.7 %; Eosinophils # 0.2 K/mcL (0.0-0.6); Eosinophils % 4.8 %; Hematocrit 33.2 % (35.3-44.9); Hemoglobin 11.4 g/dL (11.5-15.4); Immature Granulocytes % 0.2 % (0-4); Lymphocytes # 1.5 K/mcL (0.6-4.6); Mean Corpuscular HGB Conc 34.3 g/dL (31.6-35.5); Mean Corpuscular Hemoglobin 30.3 pg (28.0-33.3); Mean Corpuscular Volume 88.3 fL (83.0-100.0); Mean Platelet Volume 10.4 fL (9.4-12.4); Monocytes # 0.2 K/mcL (0.0-1.3); Monocytes % 4.3 %; Neutrophils # 2.5 K/mcL (1.6-8.9); Platelet Count 187 K/mcL (140-400); Red Blood Count 3.76 M/mcL (3.82-4.97); Red Cell Distribution Width 12.5 % (11.5-14.5)
[2017-09-09 05:36] LABS: Alanine Aminotransferase 33 Units/L (7-52); Albumin 3.4 g/dL (3.5-5.7); Albumin/Globulin Ratio 1.1 (1.1-2.2); Alkaline Phosphatase 121 Units/L (34-104); Aspartate Amino Transferase 33 Units/L (13-39); BUN/Creatinine Ratio 14 (6-26); Bilirubin,Total 0.4 mg/dL (0.3-1.0); Blood Urea Nitrogen 14 mg/dL (6-20); Calcium 8.9 mg/dL (8.6-10.3); Carbon Dioxide 26 mEq/L (23-29); Chloride 101 mEq/L (98-107); Globulin 3.2 g/dL (2.4-3.5); Glucose 576 mg/dL (70-105); Osmolality,Calculated 303 (280-300); Potassium 4.6 mEq/L (3.5-5.1); Sodium 133 mEq/L (136-145); Total Protein 6.6 g/dL (6.4-8.9); eGFR For African Americans > 60 (> 60); eGFR For Non-African Americans > 60 (> 60)
[2017-09-09] MEDS ORDERED: Insulin LISPRO 300 UNITS/3 ML VIAL SQ ONE (06:02)
[2017-09-09] MEDS ORDERED: FLUoxetine 20 MG CAPSULE PO SCH (09:00)
--- NOTE | 2017-09-09 09:10 | Internal Med Progress Note ---
<Sae Brito - Last Filed: 09/09/17 13:40> Date of Encounter: 09/09/17 Time of Encounter: 08:45 - Assessment and plan (1) Diabetes mellitus type 1 with complications Current Visit: No Status: Chronic Assessment and plan: - Glucose in 500s overnight and patient received additional 15 units of insulin Humalog. - Likely secondary to non-compliance on diet order with reported soda drinking overnight. - Glucose 209 this morning. - Continue basal and sliding scale insulin with close glucose monitoring. (2) Hyperosmolar nonketotic coma in diabetes Current Visit: Yes Status: Acute Assessment and plan: - Glucose as high as 1006 with anion gap of 10 on initial presentation in ED. - Likely due to dehydration as result of reported nausea/vomiting prior to admission along with known non-compliance. Patient may have underlying gastroenteritis leading to her nausea/vomiting. - Continue sliding scale insulin with close glucose and electrolyte monitoring. (3) GI bleed Current Visit: Yes Status: Acute Assessment and plan: - Patient states having hematemesis, hematochezia and melena but none of them were witnessed and documented on [employer]. - Stool occult test positive for blood. - EGD on 09/08/17 found normal esophagus, stomach and duodenum. - Hgb stable at this time. - Patient may need outpatient colonoscopy after discharge as further work-up. Qualifiers: GI bleed type/associated pathology: gastrointestinal hemorrhage with hematemesis Qualified Code(s): K92.0 - Hematemesis (4) Anemia Current Visit: Yes Status: Acute Assessment and plan: - Hgb 12.9 on admission but dropped to 10.3 on 09/08/17. - Likely dilutional as patient received good amount IV fluid. - Improves as Hgb 11.4 today. - Continue to monitor. Consider pRBC transfusion if Hgb < 7. Qualifiers: Anemia type: other cause Other causes of anemia: other cause, not classified Qualified Code(s): D64.89 - Other specified anemias (5) Non-compliance Current Visit: Yes Status: Acute Assessment and plan: - Reported eating food from outside of hospital and significant soda drinking. - Inconsistency in history told by patient is also noted. (6) Bronchitis Current Visit: Yes Status: Acute Assessment and plan: - Reported 2-day history of productive cough with fever 102. - CXR on 09/06/17 found no acute cardiopulmonary abnormality. - Rapid influenza test negative. - Will obtain sputum culture if possible. - Continue azithromycin (since 09/06/17) and bronchodilators. (7) Asthma Current Visit: No Status: Chronic Assessment and plan: - Continue bronchodilators. Qualifiers: Asthma severity: mild Asthma persistence: intermittent Asthma complication type: uncomplicated Qualified Code(s): J45.20 - Mild intermittent asthma, uncomplicated (8) GERD (gastroesophageal reflux disease) Current Visit: No Status: Chronic Assessment and plan: - Continue omeprazole. Qualifiers: Esophagitis presence: esophagitis presence not specified Qualified Code(s) : K21.9 - Gastro-esophageal reflux disease without esophagitis (9) HTN (hypertension) Current Visit: No Status: Chronic Assessment and plan: - Blood pressure within normal range most of time. - Continue current antihypertensive regimen. Qualifiers: Hypertension type: essential hypertension Qualified Code(s): I10 - Essential (primary) hypertension (10) Tobacco abuse Current Visit: No Status: Chronic Assessment and plan: - Smoking cessation counseling. - Continue nicotine patch. (11) DVT prophylaxis Current Visit: No Status: Acute Assessment and plan: - Continue EPCD as mechanical DVT prophylaxis. Discontinue anticoagulation at this time given current GI bleed. - Subjective Interval history: Patient was noted to have blood glucose in 500s overnight and received 15 units of insulin Humalog. Latest POC glucose is 209 this morning. Patient was seen and examined this morning. Patient still complains of nausea and vomiting with yellow-green vomitus. Patient states that she does not want Zofran as Zofran made her face swelling and she wants IV Phenergan. Patient also complains of left lower quadrant abdominal pain. Patient states her pain is not well- controlled by morphine and wants to be back to Dilaudid. Patient states her last movement was prior to admission (which is inconsistent to what she said yesterday that she had watery bowel movement yesterday morning). Per patient, she had some [employer] food her mother brought yesterday last night for dinner and was drinking just water. An almost emptied bottle of Sprite was noted on bedside table but patient states that belongs to her significant other who is sleeping in same bed with her. Per nurse, patient was noted to be non-compliant with diet order and drinking soda overnight. - Constitutional Vitals: Temp Pulse Resp BP Pulse Ox 97.7 F 83 16 131/81 95 09/09/17 06:39 09/09/17 06:39 09/09/17 06:39 09/09/17 06:39 09/09/17 06:39 General appearance: Present: cooperative, A&O X 3, no acute distress - Head Head exam: Present: normal inspection - Eye Eye exam: Present: EOMI, conjuntiva pink, sclera anicteric - Neck Neck exam general surgery: Present: normal inspection, supple, trachea midline - Respiratory Respiratory exam: Present: CTAB. Absent: accessory muscle use - Cardiovascular Cardiovascular exam: Present: RRR, +S1, +S2 - GI/Abdominal GI/Abdominal exam: Present: hypoactive bowel sounds, soft, tenderness (LLQ tenderness to palpation per patient) - Extremities Exam Extremities exam: Present: warm. Absent: cyanotic - Neurological Exam Neurological exam: Present: alert. Absent: facial droop, speech deficit - Skin Skin exam: Present: dry, warm Internal Medicine: Result - Labs CBC & Chem 7: 09/09/17 04:45 09/09/17 04:45 Labs: Short CBC 09/08/17 09/09/17 Range/Units 13:20 04:45 WBC 4.4 (4.3-11.1) K/mcL Hgb 11.0 L 11.4 L (11.5-15.4) g/dL Hct 31.9 L 33.2 L (35.3-44.9) % Plt Count 187 (140-400) K/mcL Neutrophils # 2.5 (1.6-8.9) K/mcL BMP 09/09/17 04:45 Sodium 133 L Potassium 4.6 Chloride 101 Carbon Dioxide 26 BUN 14 Creatinine 0.97 Glucose 576 H* Calcium 8.9 Liver Function 09/09/17 Range/Units 04:45 Total Bilirubin 0.4 (0.3-1.0) mg/dL AST 33 (13-39) Units/L ALT 33 (7-52) Units/L Alkaline Phosphatase 121 H (34-104) Units/L Albumin 3.4 L (3.5-5.7) g/dL Consult Discharge Plan - Plan Referrals: Marielena Baltazar CNP [Advanced Practice Nurse] - 09/13/17 10:00 am Iqra Crockett [Advanced Practice Nurse] - (SENT WEB REQUEST ON 09-08-17 @ [phone] ) Domingo Humphrey DO [Primary Care Provider] - (sent web request on 09-07-17 @ [phone] ) <Jovana Clark - Last Filed: 09/09/17 16:37> Date of Encounter: 09/09/17 - Constitutional Vitals: Temp Pulse Resp BP Pulse Ox 98.4 F 81 16 118/83 97 09/09/17 14:20 09/09/17 14:20 09/09/17 14:20 09/09/17 14:20 09/09/17 14:20 Internal Medicine: Result - Labs CBC & Chem 7: 09/09/17 04:45 09/09/17 04:45 - Attending Attestation I examined this patient and my medical decision-making was reviewed with the Resident Physician Dr. Brito. I agree with the documented findings, disposition and treatment plan as described except to the extent set forth below. 37 y/o F admitted with acute hyperglycemic hyperosmolar state. Denied any CP / SOB. Still has N/V. Pt is requesting more frequent pain medication and IV Phenergan with pain medication. She does not wanted to take Zofran. Gen: A, A, O x3 Chest: CTA Abd: Soft, NT Heart; S1S2+ a/p 1. Acute Hyperglycemic hyperosmolar state Improved BS still fluctuating -- poor dieatry habbits counseled the pt to stay away from pops and high carb diet Cont ISS and Levemir She can resume her Insulin pump when she get d/c home 2. Acute gastroparesis 3. GI bleed with hemoccult positive stable Hb so far s/p EGD- WNL switched to PO PPI CT of Abd- Benign 4. Chronic abdominal pain 5. Drug seeking behavior When pt takes IV Dilaudid and Phenergan she becomes groggy and sleepy. So I did recommend to take phenergan only for nausea.. no narcotics with it. Pt does not want any nausea medication however she wants pain medication. She is not happy with Morphine Iv 2mg Q4hr PRN for pain. She would like to change the provider. So I talked to Dr. Duron to follow on this pt in AM.
[2017-09-09] MEDS: levoFLOXacin 500 MG TABLET PO SCH (09:33)
[2017-09-09] MEDS: Insulin LISPRO 300 UNITS/3 ML VIAL SQ SCH ×3 (09:34→18:11)
[2017-09-09] MEDS: Gabapentin 400 MG CAPSULE PO SCH ×3 (09:34→21:15)
[2017-09-09] MEDS: lamoTRIgine 100 MG TABLET PO SCH ×2 (09:35→21:15)
[2017-09-09] MEDS: Nicotine 14 MG PATCH.TD24 TD SCH (09:35)
[2017-09-09] MEDS: *HR* LORazepam 1 MG TABLET PO PRN (15:27)
[2017-09-09] MEDS: Insulin DETEMIR 100 UNIT/ML X5UNITS SQ SCH (21:15)
[2017-09-09] MEDS: 0.9 % Sodium Chloride w KCl 20 MEQ/1,000 ML MLS IVC SCH ×2 (23:20→23:22)
[2017-09-09] MEDS: 0.9 % Sodium Chloride 1,000 ML IVC SCH ×3 (23:20→23:22)
[2017-09-10] MEDS ORDERED: *HR* Morphine 2 MG/ML SYRINGE IVP ONE (01:11)
[2017-09-10] MEDS ORDERED: *HR* Promethazine 25 MG/ML VIAL IVP ONE (01:13)
[2017-09-10] MEDS: *HR* LORazepam 1 MG TABLET PO PRN (03:45)
[2017-09-10 04:29] LABS: Hematocrit 35.8 % (35.3-44.9); Hemoglobin 12.4 g/dL (11.5-15.4); Mean Corpuscular HGB Conc 34.6 g/dL (31.6-35.5); Mean Corpuscular Hemoglobin 30.6 pg (28.0-33.3); Mean Corpuscular Volume 88.4 fL (83.0-100.0); Mean Platelet Volume 10.1 fL (9.4-12.4); Platelet Count 206 K/mcL (140-400); Red Blood Count 4.05 M/mcL (3.82-4.97); Red Cell Distribution Width 12.8 % (11.5-14.5)
[2017-09-10 05:15] LABS: BUN/Creatinine Ratio 19 (6-26); Blood Urea Nitrogen 18 mg/dL (6-20); Calcium 8.8 mg/dL (8.6-10.3); Carbon Dioxide 25 mEq/L (23-29); Chloride 102 mEq/L (98-107); Glucose 243 mg/dL (70-105); Osmolality,Calculated 290 (280-300); Potassium 4.1 mEq/L (3.5-5.1); Sodium 135 mEq/L (136-145); eGFR For African Americans > 60 (> 60); eGFR For Non-African Americans > 60 (> 60)
[2017-09-10] MEDS: Orphenadrine 100 MG TABLET.ER PO SCH (06:05)
[2017-09-10 06:32] VITALS: BP 116/77
[2017-09-10] MEDS: *HR* Morphine 2 MG/ML SYRINGE IVP PRN ×2 (06:36)
[2017-09-10] MEDS: Gabapentin 400 MG CAPSULE PO SCH (07:48)
[2017-09-10] MEDS: FLUoxetine 20 MG CAPSULE PO SCH (07:49)
[2017-09-10] MEDS: lamoTRIgine 100 MG TABLET PO SCH (07:49)
[2017-09-10] MEDS: levoFLOXacin 500 MG TABLET PO SCH (07:49)
[2017-09-10] MEDS: Insulin LISPRO 300 UNITS/3 ML VIAL SQ SCH (07:50)
[2017-09-10] MEDS: Nicotine 14 MG PATCH.TD24 TD SCH (07:52)
[2017-09-10] MEDS ORDERED: Insulin LISPRO 300 UNITS/3 ML VIAL SQ SCH (08:30)
--- NOTE | 2017-09-10 10:51 | Discharge Summary ---
Date of Encounter: 09/10/17 Time of Encounter: 10:51 - Discharge Diagnosis (1) Bronchitis Priority: Primary Status: Acute (2) Hyperglycemia without ketosis Priority: Primary Status: Acute (3) Non-compliance Priority: Secondary Status: Chronic (4) HLD (hyperlipidemia) Priority: Secondary Status: Chronic Qualifiers: Hyperlipidemia type: unspecified Qualified Code(s): E78.5 - Hyperlipidemia , unspecified (5) Asthma Priority: Secondary Status: Chronic Qualifiers: Asthma severity: mild Asthma persistence: intermittent Asthma complication type: uncomplicated Qualified Code(s): J45.20 - Mild intermittent asthma, uncomplicated (6) Gastroparesis due to DM Priority: Secondary Status: Chronic (7) HLD (hyperlipidemia) Priority: Secondary Status: Chronic Qualifiers: Hyperlipidemia type: pure hypercholesterolemia Qualified Code(s): E78.00 - Pure hypercholesterolemia, unspecified; E78.0 - Pure hypercholesterolemia (8) HTN (hypertension) Priority: Secondary Status: Chronic Qualifiers: Hypertension type: essential hypertension Qualified Code(s): I10 - Essential (primary) hypertension (9) Borderline personality disorder Priority: Secondary Status: Suspected - Discharge Medications Home Medications: Lisinopril [Zestril] 10 mg PO DAILY 04/17/15 [History] Albuterol Sulfate [Albuterol Inhaler] 2 puff IH Q4HR PRN 06/19/15 [History] LORazepam [Ativan] 2 mg PO TID PRN 06/19/15 [History] Estradiol 2 mg PO DAILY 08/03/16 [History] Esomeprazole Magnesium [Nexium] 40 mg PO BID 08/23/16 [History] Levomefolate/B6/B12/Algal Oil [Metanx Capsule] 1 tab PO BID 07/11/17 [History] Orphenadrine [Norflex] 100 mg PO Q12H 07/13/17 [History] Promethazine [Phenergan] 12.5 mg PO Q8H PRN 07/13/17 [History] Gabapentin [Neurontin] 800 mg PO TID 08/09/17 [History] Quetiapine Fumarate [Seroquel] 25 - 50 mg PO HS 08/09/17 [History] Rosuvastatin [Crestor] 20 mg PO QPM 08/09/17 [History] Ergocalciferol (VITAMIN D2) [Vitamin D] 800 unit PO DAILY 09/06/17 [History] FLUoxetine HCl [Fluoxetine HCl] 80 mg PO Q48H 09/06/17 [History] FLUoxetine HCl [Prozac] 40 mg PO Q48H 09/06/17 [History] Subcutaneous Insulin Pump [T:Slim] 1 each MC AD 09/06/17 [History] lamoTRIgine [Lamictal] 100 mg PO QAM 09/06/17 [History] lamoTRIgine [Lamictal] 300 mg PO HS 09/06/17 [History] Allergies/Adverse Reactions: 3 Allergy/AdvReac Type Severity Reaction Status Date / Time Cortisone Allergy Anaphylaxis Verified 07/10/17 21:41 hydrocodone Allergy Anaphylaxis Verified 08/09/17 19:31 ketorolac [From Toradol] Allergy Anaphylaxis Verified 07/10/17 21:41 latex Allergy Hives Verified 07/10/17 21:41 metoclopramide [From Reglan] Allergy Anaphylaxis Verified 07/10/17 21:41 tramadol [From Ultram] AdvReac Nausea Verified 07/10/17 21:41 Zolpidem [From Ambien] AdvReac Insomnia Verified 07/10/17 21:41 Date of admission: 09/09/17 12:26 Primary care physician: Domingo Humphrey DO Discharging clinician: Suman Duron Anticipated date of discharge: 09/10/17 - Patient Status Disposition: Left Against Medical Advice Condition: Good Functional capacity at discharge: independent ambulation Overall status at discharge: patient is back to baseline - Discharge Instructions Follow Up With: Marielena Baltazar CNP [Advanced Practice Nurse] - 09/13/17 10:00 am Iqra Crockett [Advanced Practice Nurse] - (SENT WEB REQUEST ON 09-08-17 @ [phone] ) Domingo Humphrey DO [Primary Care Provider] - (sent web request on 09-07-17 @ [phone] ) - Diet and Activity Activity: increase activity as tolerated Diet: diabetic diet Interval History: See below Hospital course: 37-year-old female with diabetes mellitus type 2, insulin-dependent, GERD, hyperlipidemia, anxiety and borderline personality disorder. She has a history of noncompliance with insulin, and multiple admissions for hyperosmolar state, hypoglycemia, and sometimes DKA. This time, she was admitted for hyperosmolar hyperglycemic state and bronchitis. Work up during this admission showed Abdomen and pelvis CAT scan done shows no renal calculi no hydronephrosis, liver, spleen, pancreas and adrenal glands were unremarkable. Bowel obstruction or inflammation. Status post appendectomy and cholecystectomy. No lymphadenopathy no ascites. Chest x-ray was unremarkable. So far, her complete blood count has been normal, Chemistry has been normal without acidosis, she has hyperglycemia which is persistent, urine analysis is clean without evidence of urinary tract infection, and urine toxicology is negative. Screening for influenza infection was negative. Blood culture was negative. Occult blood stool was positive. She was admitted and managed with intravenous fluids, and insulin IV. She was transitioned to subcutaneous insulin with appropriate response. She however continued to complain of nausea and vomiting, reports that one time that she had hematemesis. Gastroenterology was consulted and she underwent an EGD which was grossly normal. This morning on evaluation, the patient continues to report that she has abdominal pain and left flank pain. Physical examination was unremarkable. She was educated about how her work up so far, including CAT scan and EGD which were negative, and her hemoglobin has been stable without anemia. She had a one -time hemoglobin of 10 which was dilutional, as she had received several intravenous fluids during this hospitalization. The patient proceeded to tell this provider that she is going to go home AGAINST MEDICAL ADVICE. Patient is alert oriented and able to make medical decisions for herself. She also has known drug seeking behavior and has left AMA from this facility previously when not given opiates as she wishes. I spent greater than 30 minutes in the patient's room educating her about her current diagnoses, test results, consequences of not completing treatment, and not following up with Urology for acute urinary retention. She stated she will Go home, go back into DKA, and return to the ER. Time spent discussing smoking cessation with patient: 3 to 10 minutes - Time Spent with Patient Total time spent providing and/or coordinating discharge services: Greater than 30 minutes - Constitutional Vitals: Temp Pulse Resp BP Pulse Ox 97.7 F 76 14 116/77 96 09/10/17 06:19 09/10/17 06:19 09/10/17 06:19 09/10/17 06:19 09/10/17 06:19 General appearance: Present: cooperative, A&O X 3, no acute distress - Head Head exam: Present: atraumatic, normocephalic - Eye Eye exam: Present: PERRL, conjuntiva pink, sclera anicteric Pupils: Present: PERRL - Neck Neck exam general surgery: Present: supple, trachea midline. Absent: lymphadenopathy - Respiratory Respiratory exam: Present: CTAB. Absent: accessory muscle use, rales, rhonchi, wheezes - Cardiovascular Cardiovascular exam: Present: RRR, +S1, +S2. Absent: diastolic murmur, gallop, rubs, systolic murmur - GI/Abdominal GI/Abdominal exam: Present: normal bowel sounds, soft, no peritoneal signs. Absent: distended, tenderness - Extremities Exam Extremities exam: Present: warm, radial pulses palpable and symmetrical. Absent : calf tenderness, cyanotic, pedal edema - Neurological Exam Neurological exam: Present: alert, CN II-XII intact, oriented X3, no focal deficits. Absent: pronater drift, facial droop, speech deficit - Skin Skin exam: Present: dry, intact
== END 2017-09-10 11:30 | disposition left against medical advice (07) | DRG 638 ==
LOC: EMEROO 13:03 → 2NNU 13:03 → SUATTDRO 18:02 → 2NNU 18:48 → 3ANU 09-08 21:40 → SUATTDRO 09-09 12:26
PROVIDERS: ADMIT Hospitalist; ATTEND Internal Medicine
PROC: ENDOEBX (2017-09-08 11:00)

== ENCOUNTER 2017-09-12 21:27 | Inpatient (IN) ==
[2017-09-12] MEDS ORDERED: Insulin Human Regular 100 UNIT in 0.9 % Sodium Chloride 100 ML IVC SCH (21:30)
[2017-09-12] MEDS: *HR* Promethazine 25 MG/ML VIAL IM ONE ×2 (21:50→23:06)
[2017-09-12 22:22] LABS: Amphetamine Screen,Urine Negative ng/mL (Cutoff=1000); Barbiturate Screen,Urine Negative ng/mL (Cutoff=200); Benzodiazepines Screen,Urine Negative ng/mL (Cutoff=200); Cannabinoid Screen,Urine Negative ng/mL (Cutoff = 50); Cocaine Screen,Urine Negative ng/mL (Cutoff= 300); Opiate Screen,Urine Negative ng/mL (Cutoff=300); Phencyclidine Screen,Urine Negative ng/mL (Cutoff=25)
[2017-09-12 22:42] LABS: Basophils % 0.3 %; Hematocrit 30.9 % (35.3-44.9); Hemoglobin 10.7 g/dL (11.5-15.4); Immature Granulocytes % 0.3 % (0-4); Lymphocytes # 0.8 K/mcL (0.6-4.6); Lymphocytes % 10.7 %; Mean Corpuscular HGB Conc 34.6 g/dL (31.6-35.5); Mean Corpuscular Hemoglobin 31.3 pg (28.0-33.3); Mean Corpuscular Volume 90.4 fL (83.0-100.0); Mean Platelet Volume 10.4 fL (9.4-12.4); Monocytes # 0.2 K/mcL (0.0-1.3); Monocytes % 2.8 %; Neutrophils # 6.2 K/mcL (1.6-8.9); Platelet Count 156 K/mcL (140-400); Red Blood Count 3.42 M/mcL (3.82-4.97); Red Cell Distribution Width 12.6 % (11.5-14.5); Segmented Neutrophils % 85.9 %
[2017-09-12] MEDS: 0.9 % Sodium Chloride 1,000 ML IVC SCH (22:55)
[2017-09-12 23:08] LABS: VBG HCO3 19 mEq/L (21-27); VBG PCO2 40 mmHg (41-51); VBG PH 7.28 pH Units (7.32-7.42); VBG PO2 100 mmHg (25-50)
[2017-09-12 23:13] LABS: Beta-Hydroxybutyric Acid > 2.00 mmol/L (0.02-0.27)
[2017-09-12 23:30] LABS: Alanine Aminotransferase 49 Units/L (7-52); Albumin 3.4 g/dL (3.5-5.7); Albumin/Globulin Ratio 1.1 (1.1-2.2); Alkaline Phosphatase 145 Units/L (34-104); Aspartate Amino Transferase 46 Units/L (13-39); BUN/Creatinine Ratio 26 (6-26); Bilirubin,Total 0.8 mg/dL (0.3-1.0); Blood Urea Nitrogen 34 mg/dL (6-20); Calcium 8.5 mg/dL (8.6-10.3); Carbon Dioxide 18 mEq/L (23-29); Chloride 94 mEq/L (98-107); Globulin 3.2 g/dL (2.4-3.5); Glucose 820 mg/dL (70-105); Magnesium 1.8 mg/dL (1.6-2.6); Osmolality,Calculated 304 (280-300); Phosphorous 3.7 mg/dL (2.7-4.5); Potassium 5.8 mEq/L (3.5-5.1); Sodium 123 mEq/L (136-145); Total Protein 6.6 g/dL (6.4-8.9); eGFR For African Americans 57 (> 60); eGFR For Non-African Americans 47 (> 60)
[2017-09-12 23:56] LABS: Bilirubin,Urine Negative (Negative); Blood,Urine Trace (Negative); Clarity,Urine Clear (Clear); Color,Urine Yellow (Yellow); Glucose,Urine (UA) >=1000 mg/dL (Normal); Ketones,Urine 15 mg/dL (Negative); Leukocyte Esterase,Urine Negative (Negative); Nitrite,Urine Negative (Negative); Protein,Urine Negative (Neg-Trace); Specific Gravity,Urine 1.025 (1.010-1.025); Urobilinogen,Urine Normal (Normal)
--- NOTE | 2017-09-12 23:57 | Emergency Department Note ---
Disposition Clinical Impression: Urinary retention DKA (diabetic ketoacidoses) Qualifiers: Diabetes mellitus type: type 1 Diabetes mellitus complication detail: without coma Qualified Code(s): E10.10 - Type 1 diabetes mellitus with ketoacidosis without coma Disposition: Admitted As Inpatient Condition: Good General Adult HPI - General Chief complaint: ED General Medical Stated complaint: hyperglycemia Time Seen by Provider: 09/12/17 21:30 Source: patient, EMS Limitations: no limitations Nursing Notes Reviewed: Yes Vital Signs Reviewed: Yes - History of Present Illness HPI Narrative: Patient has known type I diabetic since age 12. Patient was recently admitted to the hospital for DKA. Was found to have urinary retention but signed out AMA prior to urology evaluation. Patient states she has been home. She has been doing well with her blood sugars. Today her blood sugars became elevated. She had abdominal cramping as well as nausea and vomiting. She presented to the emergency department with a glucose greater than 800. Patient had difficulty getting urine sample. The Valle was placed. 750 mL of urine was obtained. Patient has acute urinary retention. Patient will be further evaluated for DKA. Abdominal pain, nausea, vomiting, flank pain or similar to previous admission. CT scan did not show specific cause. Patient has no focal tenderness on exam. No sign of infection to history and physical. Pain Scale: 8 - Related Data Home Medications Medication Instructions Recorded Confirmed Lisinopril [Zestril] 10 mg PO DAILY 04/17/15 09/22/17 Albuterol Sulfate [Albuterol 2 puff IH Q4HR PRN 06/19/15 09/22/17 Inhaler] LORazepam [Ativan] 2 mg PO TID PRN 06/19/15 09/22/17 Estradiol 2 mg PO DAILY 08/03/16 09/22/17 Esomeprazole Magnesium [Nexium] 40 mg PO BID 08/23/16 09/22/17 Levomefolate/B6/B12/Algal Oil 1 tab PO BID 07/11/17 09/22/17 [Metanx Capsule] Orphenadrine [Norflex] 100 mg PO Q12H 07/13/17 09/22/17 Promethazine [Phenergan] 12.5 mg PO Q8H PRN 07/13/17 09/22/17 Gabapentin [Neurontin] 800 mg PO TID 08/09/17 09/22/17 Quetiapine Fumarate [Seroquel] 25 - 50 mg PO HS 08/09/17 09/22/17 Rosuvastatin [Crestor] 20 mg PO QPM 08/09/17 09/22/17 Ergocalciferol (VITAMIN D2) 800 unit PO DAILY 09/06/17 09/22/17 [Vitamin D] Subcutaneous Insulin Pump [T:Slim] 1 each MC AD 09/06/17 09/22/17 Previous Rx's Medication Instructions Recorded Promethazine [Phenergan] 12.5 mg IVP Q4HR PRN vial 09/19/17 Allergies Allergy/AdvReac Type Severity Reaction Status Date / Time azithromycin Allergy Hives Verified 09/17/17 16:18 Cortisone Allergy Anaphylaxis Verified 07/10/17 21:41 hydrocodone Allergy Anaphylaxis Verified 08/09/17 19:31 ketorolac [From Toradol] Allergy Anaphylaxis Verified 07/10/17 21:41 latex Allergy Hives Verified 07/10/17 21:41 metoclopramide [From Reglan] Allergy Anaphylaxis Verified 07/10/17 21:41 ondansetron Allergy Anaphylaxis Verified 09/13/17 03:12 [From Zofran (as hydrochloride)] tramadol [From Ultram] AdvReac Nausea Verified 07/10/17 21:41 Zolpidem [From Ambien] AdvReac Insomnia Verified 07/10/17 21:41 Review of Systems: CONSTITUTIONAL: Weakness No weight loss, fever, chills, or fatigue. HEENT: Eyes: No visual changes. Ears, Nose, Throat: No hearing loss, difficulty talking or unable to swallow. SKIN: No rash or itching. CARDIOVASCULAR: No chest pain, chest pressure or chest discomfort. No palpitations or edema. RESPIRATORY: No shortness of breath, cough or sputum. GASTROINTESTINAL: Nausea, vomiting, abdominal pain and flank pain GENITOURINARY: No burning on urination or hematuria. NEUROLOGICAL: No headache, dizziness, syncope, paralysis, ataxia, numbness or tingling in the extremities. No change in bowel or bladder control. MUSCULOSKELETAL: No muscle pain, back pain, joint pain or stiffness. 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 Patient has urinary retention. Patient will need further evaluation of this patient. - Consultations Consultation #1: Discussed with hospitalist. Patient accepted for admission. Vital Signs Temperature 97.4 F L 09/12/17 21:32 Pulse Rate 99 09/12/17 21:32 Respiratory Rate 18 09/12/17 21:32 Blood Pressure 124/74 09/12/17 21:32 O2 Sat by Pulse Oximetry 98 09/12/17 21:32 Temperature 97.8 F 09/19/17 22:50 Pulse Rate 108 09/19/17 22:50 Respiratory Rate 16 09/19/17 22:50 Blood Pressure 126/86 09/19/17 22:50 O2 Sat by Pulse Oximetry 98 09/19/17 22:50 Oxygen Delivery Oxygen Delivery Room Air Medical Decision Making - Lab Data Result diagrams: 09/19/17 05:15 09/19/17 05:15 Lab Results 09/12/17 09/12/17 09/12/17 Range/Units 21:31 21:32 21:59 WBC (4.3-11.1) K/mcL RBC (3.82-4.97) M/mcL Hgb (11.5-15.4) g/dL Hct (35.3-44.9) % MCV (83.0-100.0) fL MCH (28.0-33.3) pg MCHC (31.6-35.5) g/dL RDW (11.5-14.5) % Plt Count (140-400) K/mcL MPV (9.4-12.4) fL Immature Gran % (0-4) % Seg Neutrophils % % Lymphocytes % % Monocytes % % Eosinophils % % Basophils % % Neutrophils # (1.6-8.9) K/mcL Lymphocytes # (0.6-4.6) K/mcL Monocytes # (0.0-1.3) K/mcL Eosinophils # (0.0-0.6) K/mcL Basophils # (0.0-0.2) K/mcL Immature Plt Fraction (1.1-6.1) % VBG pH (7.32-7.42) pH Units VBG pCO2 (41-51) mmHg VBG pO2 (25-50) mmHg VBG HCO3 (21-27) mEq/L Sodium (136-145) mEq/L Potassium (3.5-5.1) mEq/L Chloride (98-107) mEq/L Carbon Dioxide (23-29) mEq/L BUN (6-20) mg/dL Creatinine (0.60-1.20) mg/dL Est GFR ( Amer) (> 60) Est GFR (Non-Af Amer) (> 60) BUN/Creatinine Ratio (6-26) Glucose (70-105) mg/dL POC Glucose > 600 H* > 600 H* (58-89) Est Mean Plasma Glucose mg/dl Hemoglobin A1c ( - 5.6) % Calculated Osmolality (280-300) Lactic Acid (0.5-2.2) mmol/L Calcium (8.6-10.3) mg/dL Phosphorus (2.7-4.5) mg/dL Magnesium (1.6-2.6) mg/dL Total Bilirubin (0.3-1.0) mg/dL AST (13-39) Units/L ALT (7-52) Units/L Alkaline Phosphatase (34-104) Units/L Troponin I (< 0.04) ng/mL Serum Total Protein (6.4-8.9) g/dL Albumin (3.5-5.7) g/dL Globulin (2.4-3.5) g/dL Albumin/Globulin Ratio (1.1-2.2) Beta-Hydroxybutyric Acd (0.02-0.27) mmol/L Urine Color (Yellow) Urine Clarity (Clear) Urine pH (5.0-8.0) pH Units Ur Specific [place] (1.010-1.025) Urine Protein (Neg-Trace) mg/dL Urine Glucose (UA) (Normal) mg/dL Urine Ketones (Negative) mg/dL Urine Blood (Negative) Urine Nitrite (Negative) Urine Bilirubin (Negative) Urine Urobilinogen (Normal) mg/dL Ur Leukocyte Esterase (Negative) Urine Microscopic RBC (0-3) per hpf Urine Microscopic WBC (0-3) per hpf Urine Bacteria (None-Few) per hpf Urine Yeast (None Seen) per hpf Ur Culture Indicated? (NO) Urine Opiates Screen Negative (Irwjsf=047) ng/mL Ur Barbiturates Screen Negative (Ijdkkl=599) ng/mL Ur Phencyclidine Scrn Negative (Cutoff=25) ng/mL Ur Amphetamines Screen Negative (Mjwjdx=3030) ng/mL U Benzodiazepines Scrn Negative (Tibhgh=983) ng/mL Urine Cocaine Screen Negative (Cutoff= 300) ng/mL U Marijuana (THC) Screen Negative (Cutoff = 50) ng/mL 09/12/17 09/12/17 09/12/17 Range/Units 21:59 22:33 22:33 WBC 7.2 (4.3-11.1) K/mcL RBC 3.42 L (3.82-4.97) M/mcL Hgb 10.7 L D (11.5-15.4) g/dL Hct 30.9 L (35.3-44.9) % MCV 90.4 (83.0-100.0) fL MCH 31.3 (28.0-33.3) pg MCHC 34.6 (31.6-35.5) g/dL RDW 12.6 (11.5-14.5) % Plt Count 156 (140-400) K/mcL MPV 10.4 (9.4-12.4) fL Immature Gran % 0.3 (0-4) % Seg Neutrophils % 85.9 % Lymphocytes % 10.7 % Monocytes % 2.8 % Eosinophils % 0.0 % Basophils % 0.3 % Neutrophils # 6.2 (1.6-8.9) K/mcL Lymphocytes # 0.8 (0.6-4.6) K/mcL Monocytes # 0.2 (0.0-1.3) K/mcL Eosinophils # 0.0 (0.0-0.6) K/mcL Basophils # 0.0 (0.0-0.2) K/mcL Immature Plt Fraction 3.0 (1.1-6.1) % VBG pH (7.32-7.42) pH Units VBG pCO2 (41-51) mmHg VBG pO2 (25-50) mmHg VBG HCO3 (21-27) mEq/L Sodium 123 L (136-145) mEq/L Potassium 5.8 H (3.5-5.1) mEq/L Chloride 94 L (98-107) mEq/L Carbon Dioxide 18 L (23-29) mEq/L BUN 34 H (6-20) mg/dL Creatinine 1.29 H (0.60-1.20) mg/dL Est GFR ( Amer) 57 L (> 60) Est GFR (Non-Af Amer) 47 L (> 60) BUN/Creatinine Ratio 26 (6-26) Glucose 820 H* (70-105) mg/dL POC Glucose (58-89) Est Mean Plasma Glucose mg/dl Hemoglobin A1c ( - 5.6) % Calculated Osmolality 304 H (280-300) Lactic Acid (0.5-2.2) mmol/L Calcium 8.5 L (8.6-10.3) mg/dL Phosphorus 3.7 (2.7-4.5) mg/dL Magnesium 1.8 (1.6-2.6) mg/dL Total Bilirubin 0.8 (0.3-1.0) mg/dL AST 46 H (13-39) Units/L ALT 49 (7-52) Units/L Alkaline Phosphatase 145 H (34-104) Units/L Troponin I (< 0.04) ng/mL Serum Total Protein 6.6 (6.4-8.9) g/dL Albumin 3.4 L (3.5-5.7) g/dL Globulin 3.2 (2.4-3.5) g/dL Albumin/Globulin Ratio 1.1 (1.1-2.2) Beta-Hydroxybutyric Acd > 2.00 H (0.02-0.27) mmol/L Urine Color Yellow (Yellow) Urine Clarity Clear (Clear) Urine pH 6.0 (5.0-8.0) pH Units Ur Specific [place] 1.025 (1.010-1.025) Urine Protein Negative (Neg-Trace) mg/dL Urine Glucose (UA) >=1000 H (Normal) mg/dL Urine Ketones 15 H (Negative) mg/dL Urine Blood Trace H (Negative) Urine Nitrite Negative (Negative) Urine Bilirubin Negative (Negative) Urine Urobilinogen Normal (Normal) mg/dL Ur Leukocyte Esterase Negative (Negative) Urine Microscopic RBC 0-3 (0-3) per hpf Urine Microscopic WBC 0-3 (0-3) per hpf Urine Bacteria Few (None-Few) per hpf Urine Yeast Few H (None Seen) per hpf Ur Culture Indicated? NO (NO) Urine Opiates Screen (Qqjysg=664) ng/mL Ur Barbiturates Screen (Rjqxxy=554) ng/mL Ur Phencyclidine Scrn (Cutoff=25) ng/mL Ur Amphetamines Screen (Ssbjae=4608) ng/mL U Benzodiazepines Scrn (Nubmat=787) ng/mL Urine Cocaine Screen (Cutoff= 300) ng/mL U Marijuana (THC) Screen (Cutoff = 50) ng/mL 09/12/17 09/12/17 09/12/17 Range/Units 22:33 22:33 22:33 WBC (4.3-11.1) K/mcL RBC (3.82-4.97) M/mcL Hgb (11.5-15.4) g/dL Hct (35.3-44.9) % MCV (83.0-100.0) fL MCH (28.0-33.3) pg MCHC (31.6-35.5) g/dL RDW (11.5-14.5) % Plt Count (140-400) K/mcL MPV (9.4-12.4) fL Immature Gran % (0-4) % Seg Neutrophils % % Lymphocytes % % Monocytes % % Eosinophils % % Basophils % % Neutrophils # (1.6-8.9) K/mcL Lymphocytes # (0.6-4.6) K/mcL Monocytes # (0.0-1.3) K/mcL Eosinophils # (0.0-0.6) K/mcL Basophils # (0.0-0.2) K/mcL Immature Plt Fraction (1.1-6.1) % VBG pH (7.32-7.42) pH Units VBG pCO2 (41-51) mmHg VBG pO2 (25-50) mmHg VBG HCO3 (21-27) mEq/L Sodium (136-145) mEq/L Potassium (3.5-5.1) mEq/L Chloride (98-107) mEq/L Carbon Dioxide (23-29) mEq/L BUN (6-20) mg/dL Creatinine (0.60-1.20) mg/dL Est GFR ( Amer) (> 60) Est GFR (Non-Af Amer) (> 60) BUN/Creatinine Ratio (6-26) Glucose (70-105) mg/dL POC Glucose (58-89) Est Mean Plasma Glucose 177 mg/dl Hemoglobin A1c 7.8 H ( - 5.6) % Calculated Osmolality (280-300) Lactic Acid 1.1 (0.5-2.2) mmol/L Calcium (8.6-10.3) mg/dL Phosphorus (2.7-4.5) mg/dL Magnesium (1.6-2.6) mg/dL Total Bilirubin (0.3-1.0) mg/dL AST (13-39) Units/L ALT (7-52) Units/L Alkaline Phosphatase (34-104) Units/L Troponin I < 0.03 (< 0.04) ng/mL Serum Total Protein (6.4-8.9) g/dL Albumin (3.5-5.7) g/dL Globulin (2.4-3.5) g/dL Albumin/Globulin Ratio (1.1-2.2) Beta-Hydroxybutyric Acd (0.02-0.27) mmol/L Urine Color (Yellow) Urine Clarity (Clear) Urine pH (5.0-8.0) pH Units Ur Specific [place] (1.010-1.025) Urine Protein (Neg-Trace) mg/dL Urine Glucose (UA) (Normal) mg/dL Urine Ketones (Negative) mg/dL Urine Blood (Negative) Urine Nitrite (Negative) Urine Bilirubin (Negative) Urine Urobilinogen (Normal) mg/dL Ur Leukocyte Esterase (Negative) Urine Microscopic RBC (0-3) per hpf Urine Microscopic WBC (0-3) per hpf Urine Bacteria (None-Few) per hpf Urine Yeast (None Seen) per hpf Ur Culture Indicated? (NO) Urine Opiates Screen (Wivata=512) ng/mL Ur Barbiturates Screen (Bfbheo=381) ng/mL Ur Phencyclidine Scrn (Cutoff=25) ng/mL Ur Amphetamines Screen (Aokizk=5427) ng/mL U Benzodiazepines Scrn (Rxfxms=712) ng/mL Urine Cocaine Screen (Cutoff= 300) ng/mL U Marijuana (THC) Screen (Cutoff = 50) ng/mL 09/12/17 09/12/17 09/12/17 Range/Units 23:04 23:36 23:37 WBC (4.3-11.1) K/mcL RBC (3.82-4.97) M/mcL Hgb (11.5-15.4) g/dL Hct (35.3-44.9) % MCV (83.0-100.0) fL MCH (28.0-33.3) pg MCHC (31.6-35.5) g/dL RDW (11.5-14.5) % Plt Count (140-400) K/mcL MPV (9.4-12.4) fL Immature Gran % (0-4) % Seg Neutrophils % % Lymphocytes % % Monocytes % % Eosinophils % % Basophils % % Neutrophils # (1.6-8.9) K/mcL Lymphocytes # (0.6-4.6) K/mcL Monocytes # (0.0-1.3) K/mcL Eosinophils # (0.0-0.6) K/mcL Basophils # (0.0-0.2) K/mcL Immature Plt Fraction (1.1-6.1) % VBG pH 7.28 L (7.32-7.42) pH Units VBG pCO2 40 L (41-51) mmHg VBG pO2 100 H (25-50) mmHg VBG HCO3 19 L (21-27) mEq/L Sodium (136-145) mEq/L Potassium (3.5-5.1) mEq/L Chloride (98-107) mEq/L Carbon Dioxide (23-29) mEq/L BUN (6-20) mg/dL Creatinine (0.60-1.20) mg/dL Est GFR ( Amer) (> 60) Est GFR (Non-Af Amer) (> 60) BUN/Creatinine Ratio (6-26) Glucose (70-105) mg/dL POC Glucose > 600 H* > 600 H* (58-89) Est Mean Plasma Glucose mg/dl Hemoglobin A1c ( - 5.6) % Calculated Osmolality (280-300) Lactic Acid (0.5-2.2) mmol/L Calcium (8.6-10.3) mg/dL Phosphorus (2.7-4.5) mg/dL Magnesium (1.6-2.6) mg/dL Total Bilirubin (0.3-1.0) mg/dL AST (13-39) Units/L ALT (7-52) Units/L Alkaline Phosphatase (34-104) Units/L Troponin I (< 0.04) ng/mL Serum Total Protein (6.4-8.9) g/dL Albumin (3.5-5.7) g/dL Globulin (2.4-3.5) g/dL Albumin/Globulin Ratio (1.1-2.2) Beta-Hydroxybutyric Acd (0.02-0.27) mmol/L Urine Color (Yellow) Urine Clarity (Clear) Urine pH (5.0-8.0) pH Units Ur Specific [place] (1.010-1.025) Urine Protein (Neg-Trace) mg/dL Urine Glucose (UA) (Normal) mg/dL Urine Ketones (Negative) mg/dL Urine Blood (Negative) Urine Nitrite (Negative) Urine Bilirubin (Negative) Urine Urobilinogen (Normal) mg/dL Ur Leukocyte Esterase (Negative) Urine Microscopic RBC (0-3) per hpf Urine Microscopic WBC (0-3) per hpf Urine Bacteria (None-Few) per hpf Urine Yeast (None Seen) per hpf Ur Culture Indicated? (NO) Urine Opiates Screen (Jjfzku=178) ng/mL Ur Barbiturates Screen (Uuwvln=799) ng/mL Ur Phencyclidine Scrn (Cutoff=25) ng/mL Ur Amphetamines Screen (Fcfhur=3481) ng/mL U Benzodiazepines Scrn (Jhshro=064) ng/mL Urine Cocaine Screen (Cutoff= 300) ng/mL U Marijuana (THC) Screen (Cutoff = 50) ng/mL 09/13/17 09/13/17 09/13/17 Range/Units 00:29 00:30 01:35 WBC (4.3-11.1) K/mcL RBC (3.82-4.97) M/mcL Hgb (11.5-15.4) g/dL Hct (35.3-44.9) % MCV (83.0-100.0) fL MCH (28.0-33.3) pg MCHC (31.6-35.5) g/dL RDW (11.5-14.5) % Plt Count (140-400) K/mcL MPV (9.4-12.4) fL Immature Gran % (0-4) % Seg Neutrophils % % Lymphocytes % % Monocytes % % Eosinophils % % Basophils % % Neutrophils # (1.6-8.9) K/mcL Lymphocytes # (0.6-4.6) K/mcL Monocytes # (0.0-1.3) K/mcL Eosinophils # (0.0-0.6) K/mcL Basophils # (0.0-0.2) K/mcL Immature Plt Fraction (1.1-6.1) % VBG pH (7.32-7.42) pH Units VBG pCO2 (41-51) mmHg VBG pO2 (25-50) mmHg VBG HCO3 (21-27) mEq/L Sodium 131 L (136-145) mEq/L Potassium 4.2 D (3.5-5.1) mEq/L Chloride 106 (98-107) mEq/L Carbon Dioxide 18 L (23-29) mEq/L BUN 28 H (6-20) mg/dL Creatinine 1.09 (0.60-1.20) mg/dL Est GFR ( Amer) > 60 (> 60) Est GFR (Non-Af Amer) 57 L (> 60) BUN/Creatinine Ratio 26 (6-26) Glucose 465 H (70-105) mg/dL POC Glucose > 600 H* > 600 H* (58-89) Est Mean Plasma Glucose mg/dl Hemoglobin A1c ( - 5.6) % Calculated Osmolality 298 (280-300) Lactic Acid (0.5-2.2) mmol/L Calcium 8.2 L (8.6-10.3) mg/dL Phosphorus 2.7 (2.7-4.5) mg/dL Magnesium 1.8 (1.6-2.6) mg/dL Total Bilirubin (0.3-1.0) mg/dL AST (13-39) Units/L ALT (7-52) Units/L Alkaline Phosphatase (34-104) Units/L Troponin I (< 0.04) ng/mL Serum Total Protein (6.4-8.9) g/dL Albumin (3.5-5.7) g/dL Globulin (2.4-3.5) g/dL Albumin/Globulin Ratio (1.1-2.2) Beta-Hydroxybutyric Acd (0.02-0.27) mmol/L Urine Color (Yellow) Urine Clarity (Clear) Urine pH (5.0-8.0) pH Units Ur Specific [place] (1.010-1.025) Urine Protein (Neg-Trace) mg/dL Urine Glucose (UA) (Normal) mg/dL Urine Ketones (Negative) mg/dL Urine Blood (Negative) Urine Nitrite (Negative) Urine Bilirubin (Negative) Urine Urobilinogen (Normal) mg/dL Ur Leukocyte Esterase (Negative) Urine Microscopic RBC (0-3) per hpf Urine Microscopic WBC (0-3) per hpf Urine Bacteria (None-Few) per hpf Urine Yeast (None Seen) per hpf Ur Culture Indicated? (NO) Urine Opiates Screen (Jvswiw=438) ng/mL Ur Barbiturates Screen (Eeiuqg=889) ng/mL Ur Phencyclidine Scrn (Cutoff=25) ng/mL Ur Amphetamines Screen (Dmftdg=2337) ng/mL U Benzodiazepines Scrn (Zyhofu=958) ng/mL Urine Cocaine Screen (Cutoff= 300) ng/mL U Marijuana (THC) Screen (Cutoff = 50) ng/mL Attestation Statement - Attestation Attestation: I examined this patient and my medical decision-making was reviewed with the Resident Physician. I agree with the documented findings, disposition and treatment plan as described except to the extent set forth below. Patient with DKA, IV fluids and insulin initiated. Patient stable at time of admission. I spent greater than 35 minutes of critical care time actively resus this acutely ill patient. This is excluding billable procedures.
[2017-09-13 00:09] LABS: Bacteria,Urine Few per hpf (None-Few); RBC,Urine 0-3 per hpf (0-3); WBC,Urine 0-3 per hpf (0-3); Yeast,Urine Few per hpf (None Seen)
[2017-09-13] MEDS: 0.9 % Sodium Chloride 1,000 ML IVC SCH (00:37)
[2017-09-13 00:38] LABS: Hemoglobin A1C 7.8 %
[2017-09-13] MEDS ORDERED: *HR* HYDROmorphone (PF) 1 MG/ML SYRINGE IVP ONE (01:14)
[2017-09-13] MEDS ORDERED: Naloxone 0.4 MG/ML INJ IVP PRN ×2 (01:20→15:13)
[2017-09-13] MEDS ORDERED: Ondansetron 4 MG/2 ML VIAL IVP PRN (01:20)
[2017-09-13] MEDS ORDERED: Insulin Regular, Human 100 UNIT/ML IV PRN ×2 (01:23)
[2017-09-13] MEDS ORDERED: D5% in 0.45% NACL w KCl 20 MEQ/1,000 ML MLS IVC PRN (01:23)
[2017-09-13] MEDS ORDERED: D5% in 0.45% NACL 1,000 ML IVC PRN (01:23)
[2017-09-13] MEDS ORDERED: *HR* Dextrose 50 % in Water (Syg) 50 ML SYRINGE IVP PRN ×3 (01:23→15:13)
[2017-09-13 02:19] LABS: BUN/Creatinine Ratio 26 (6-26); Blood Urea Nitrogen 28 mg/dL (6-20); Calcium 8.2 mg/dL (8.6-10.3); Carbon Dioxide 18 mEq/L (23-29); Chloride 106 mEq/L (98-107); Glucose 465 mg/dL (70-105); Magnesium 1.8 mg/dL (1.6-2.6); Osmolality,Calculated 298 (280-300); Phosphorous 2.7 mg/dL (2.7-4.5); Potassium 4.2 mEq/L (3.5-5.1); Sodium 131 mEq/L (136-145); eGFR For African Americans > 60 (> 60); eGFR For Non-African Americans 57 (> 60)
[2017-09-13] MEDS: 0.9 % Sodium Chloride 1,000 ML IVC PRN ×2 (02:54→05:06)
--- NOTE | 2017-09-13 03:10 | Internal Med History&Physical ---
Date of Encounter: 09/13/17 Time of Encounter: 02:15 Assessment and Plan (1) DKA (diabetic ketoacidoses) Current visit: No Status: Resolved Pt noted to have acidosis with ketones and elevated beta hydroxybutryic acid therefore will treat as DKA continue Insulin gtt as per DKA protocol IV fluids replete electrolytes as needed anti-emetics as needed NPO at this time accuchecks q1h and bmp q4h until DKA resolves Qualifiers: Diabetes mellitus type: type 1 Diabetes mellitus complication detail: without coma Qualified Code(s): E10.10 - Type 1 diabetes mellitus with ketoacidosis without coma (2) Anemia Current visit: No Status: Acute noted to have drop in H&H pt was tested positive for stool occult on 09/07/17 and was scheduled for tentative EGD during her last hospitalization however left AMA pt clinically asymptomatic, consider GI evaluation in am continue to monitor H&H Qualifiers: Anemia type: other cause Other causes of anemia: other cause, not classified Qualified Code(s): D64.89 - Other specified anemias (3) Borderline personality disorder Current visit: No Status: Chronic (4) DVT prophylaxis Current visit: No Status: Acute early ambulation (5) HTN (hypertension) Current visit: No Status: Chronic BP within acceptable range continue home medications Qualifiers: Hypertension type: essential hypertension Qualified Code(s): I10 - Essential (primary) hypertension (6) Urinary retention Current visit: Yes Status: Acute urinary catheter placed in the ER urology consult requested (please call in am) pt reported to have 750cc of urine removed as the sahni cath was placed Internal Medicine - H&P: HPI Chief complaint: hyperglycemia/n/v Admitted From: Home Plans for Post Hospital Care: Home History of present illness: Ms. Gaming is a 37 year old female with PMH Of DM type 1, GERD, HTN, HLD who presented to the ER for evaluation of high blood glucose and nausea/vomiting. Pt reports of feeling weak and ill with upset stomach/nausea/vomiting all throughout the day and when she checked her blood glucose in the evening, it was above 500 which prompted her visit to the ER. Pt was hospitalized for the same few days ago and left AMA on 09/10/17. She was found to have urinary retention and concern for GI bleed at that time, urology and gi were consulted, however pt left prior to completing her work up. She was found to have urinary retention today as well due to which a sahni cath was placed. 750cc of urine was removed after sahni cath placement. Pt denied any history of hemetemeis or dark stools today, however noted to have drop in her H&H from09/10/17. Past Med Surg Social Fam HX - Past Medical History Medical history: asthma, diabetes, GERD, hyperlipidemia, hypertension, other Psychiatric history: anxiety, depression, panic disorder - Past Surgical History Surgical History: appendectomy, cholecystectomy, hysterectomy, knee replacement , other - Social History Smoking Status: Current some day smoker Smokeless Tobacco Status: No Alcohol use: none Drug use: none - Family History Mother Family Member Ethnicity: Non- Living Status: Still Living Hx Family Cardiac Disorders: Yes (HTN, HLD) Hx Family Respiratory Disorders: Yes (Asthma) Father Family Member Ethnicity: Non- Living Status: Still Living Hx Family Cardiac Disorders: Yes (HTN, HLD) Hx Family Respiratory Disorders: Yes Hx Family GI Disorders: Yes (cirrhosis) Hx Family Endocrine Disorder: Yes (Cirrhosis) Hx Family Autoimmune Disorders: Yes (Alkylosing Spondylitis) Brother Family Member Ethnicity: Non- Living Status: Still Living Hx Family Endocrine Disorder: Yes (Pancreatitis, Cirrhosis) Sister Family Member Ethnicity: Non- Living Status: Still Living Grandfather Family Member Ethnicity: Non- Living Status: Hx Family Cardiac Disorders: Yes (MA, Stroke) Hx Family Endocrine Disorder: Yes (DM) Internal Medicine - H&P: Meds Lisinopril [Zestril] 10 mg PO DAILY 04/17/15 [History] Albuterol Sulfate [Albuterol Inhaler] 2 puff IH Q4HR PRN 06/19/15 [History] LORazepam [Ativan] 2 mg PO TID PRN 06/19/15 [History] Estradiol 2 mg PO DAILY 08/03/16 [History] Esomeprazole Magnesium [Nexium] 40 mg PO BID 08/23/16 [History] Levomefolate/B6/B12/Algal Oil [Metanx Capsule] 1 tab PO BID 07/11/17 [History] Orphenadrine [Norflex] 100 mg PO Q12H 07/13/17 [History] Promethazine [Phenergan] 12.5 mg PO Q8H PRN 07/13/17 [History] Gabapentin [Neurontin] 800 mg PO TID 08/09/17 [History] Quetiapine Fumarate [Seroquel] 25 - 50 mg PO HS 08/09/17 [History] Rosuvastatin [Crestor] 20 mg PO QPM 08/09/17 [History] Ergocalciferol (VITAMIN D2) [Vitamin D] 800 unit PO DAILY 09/06/17 [History] Subcutaneous Insulin Pump [T:Slim] 1 each MC AD 09/06/17 [History] 3 Allergy/AdvReac Type Severity Reaction Status Date / Time Cortisone Allergy Anaphylaxis Verified 07/10/17 21:41 hydrocodone Allergy Anaphylaxis Verified 08/09/17 19:31 ketorolac [From Toradol] Allergy Anaphylaxis Verified 07/10/17 21:41 latex Allergy Hives Verified 07/10/17 21:41 metoclopramide [From Reglan] Allergy Anaphylaxis Verified 07/10/17 21:41 tramadol [From Ultram] AdvReac Nausea Verified 07/10/17 21:41 Zolpidem [From Ambien] AdvReac Insomnia Verified 07/10/17 21:41 All Systems PM: A 10-system review of systems was performed and is negative for pertinent findings except as documented above in the HPI. - Constitutional Constitutional: as per HPI - Constitutional Vitals: Temp Pulse Resp BP Pulse Ox 97.4 F L 82 16 110/61 97 09/13/17 02:51 09/13/17 02:51 09/13/17 02:51 09/13/17 02:51 09/13/17 02:51 General appearance: Present: A&O X 3 (overweight), no acute distress, answers questions appropriately - Head Head exam: Present: atraumatic, normocephalic - Eye Eye exam: Present: conjuntiva pink, sclera anicteric - Respiratory Respiratory exam: Present: CTAB. Absent: accessory muscle use, rales, rhonchi, wheezes - Cardiovascular Cardiovascular exam: Present: RRR, +S1, +S2. Absent: diastolic murmur, gallop, rubs, systolic murmur - GI/Abdominal GI/Abdominal exam: Present: normal bowel sounds, soft, no peritoneal signs. Absent: distended, tenderness - Extremities Exam Extremities exam: Present: warm, radial pulses palpable and symmetrical. Absent : calf tenderness, cyanotic, pedal edema - Neurological Exam Neurological exam: Present: alert, oriented X3 Internal Med - H&P Results - Labs CBC & Chem 7: 09/12/17 22:33 09/13/17 01:35
[2017-09-13] MEDS ORDERED: Orphenadrine 100 MG TABLET.ER PO SCH (03:15)
[2017-09-13] MEDS ORDERED: *HR* Promethazine 25 MG/ML VIAL IVP PRN (03:29)
[2017-09-13 04:41] LABS: Basophils # 0.1 K/mcL (0.0-0.2); Basophils % 0.7 %; Eosinophils # 0.1 K/mcL (0.0-0.6); Hematocrit 28.3 % (35.3-44.9); Hemoglobin 9.8 g/dL (11.5-15.4); Immature Granulocytes % 0.3 % (0-4); Lymphocytes # 1.9 K/mcL (0.6-4.6); Lymphocytes % 28.4 %; Mean Corpuscular HGB Conc 34.6 g/dL (31.6-35.5); Mean Corpuscular Hemoglobin 31.1 pg (28.0-33.3); Mean Corpuscular Volume 89.8 fL (83.0-100.0); Mean Platelet Volume 10.6 fL (9.4-12.4); Monocytes # 0.5 K/mcL (0.0-1.3); Monocytes % 7.8 %; Neutrophils # 4.2 K/mcL (1.6-8.9); Platelet Count 170 K/mcL (140-400); Red Blood Count 3.15 M/mcL (3.82-4.97); Red Cell Distribution Width 12.7 % (11.5-14.5); Segmented Neutrophils % 61.8 %
[2017-09-13 05:04] LABS: BUN/Creatinine Ratio 28 (6-26); Blood Urea Nitrogen 28 mg/dL (6-20); Calcium 8.2 mg/dL (8.6-10.3); Carbon Dioxide 21 mEq/L (23-29); Chloride 107 mEq/L (98-107); Glucose 298 mg/dL (70-105); Osmolality,Calculated 297 (280-300); Potassium 3.9 mEq/L (3.5-5.1); Sodium 135 mEq/L (136-145); eGFR For African Americans > 60 (> 60); eGFR For Non-African Americans > 60 (> 60)
[2017-09-13] MEDS: *HR* LORazepam 1 MG TABLET PO PRN ×3 (05:06→20:01)
[2017-09-13 05:07] LABS: Magnesium 1.8 mg/dL (1.6-2.6); Phosphorous 2.7 mg/dL (2.7-4.5)
[2017-09-13] MEDS ORDERED: *HR* Morphine 2 MG/ML SYRINGE IVP ONE ×2 (05:17→10:31)
[2017-09-13 06:10] LABS: ABG Base Excess -6 mEq/L (-2 to 3); ABG HCO3 20 mEq/L (21-27); ABG Oxygen Saturation 98 % (95-98); ABG PCO2 39 mmHg (35-45); ABG PH 7.31 pH Units (7.32-7.45); ABG PO2 106 mmHg (85-104); ABG TCO2 21 mEq/L (20-26)
[2017-09-13] MEDS ORDERED: D5% in Water 1,000 ML IVC PRN ×2 (08:06→15:13)
[2017-09-13] MEDS ORDERED: Dextrose Gel 15 GM/37.5 ML TUBE PO PRN ×4 (08:06→15:13)
[2017-09-13] MEDS: Insulin DETEMIR 100 UNIT/ML X5UNITS SQ SCH ×2 (08:35→08:38)
--- NOTE | 2017-09-13 08:38 | Urology - Consult Note ---
Date of Encounter: 09/13/17 Time of Encounter: 08:34 - Assessment and Plan (1) Urinary retention Current Visit: Yes Status: Acute Assessment and plan: pt is likey developing a neurogenic bladder from DM. keep cath in place until sugars are better controlled. ok to remove cath prior to discharge. will drop off new intermittent caths for her to take home. will also set her up with company to start mailing caths to her house to resume SIC as needed. will estimate BID SIC at home. followup as outpatient 2-4 weeks after discharge. Urology CN:HPI Consult date: 09/13/17 Reason for consult Urology: Other History of present illness: 37 yo WF previously known to service for incomplete emptying. was on SIC at the time. lost to followup. states has difficulty with bladder when sugars are not controlled. 2 recent hospitalizations. left AMA on wednesday. cath was out when she left. she found some old caths and performed catherization at home this weekend. readmitted with DKA. cath placed with 750cc residual urine. Past Med Surg Social Fam HX - Past Medical History Medical history: asthma, diabetes, GERD, hyperlipidemia, hypertension, other Psychiatric history: anxiety, depression, panic disorder - Past Surgical History Surgical History: appendectomy, cholecystectomy, hysterectomy, knee replacement , other - Social History Smoking Status: Current some day smoker Packs per day: 0.5 Smokeless Tobacco Status: No Alcohol use: none Drug use: none - Family History Mother Family Member Ethnicity: Non- Living Status: Still Living Hx Family Cardiac Disorders: Yes (HTN, HLD) Hx Family Respiratory Disorders: Yes (Asthma) Father Family Member Ethnicity: Non- Living Status: Still Living Hx Family Cardiac Disorders: Yes (HTN, HLD) Hx Family Respiratory Disorders: Yes Hx Family GI Disorders: Yes (cirrhosis) Hx Family Endocrine Disorder: Yes (Cirrhosis) Hx Family Autoimmune Disorders: Yes (Alkylosing Spondylitis) Brother Family Member Ethnicity: Non- Living Status: Still Living Hx Family Endocrine Disorder: Yes (Pancreatitis, Cirrhosis) Sister Family Member Ethnicity: Non- Living Status: Still Living Grandfather Family Member Ethnicity: Non- Living Status: Hx Family Cardiac Disorders: Yes ([place], Stroke) Hx Family Endocrine Disorder: Yes (DM) Medications and Allergies Lisinopril [Zestril] 10 mg PO DAILY 04/17/15 [History] Albuterol Sulfate [Albuterol Inhaler] 2 puff IH Q4HR PRN 06/19/15 [History] LORazepam [Ativan] 2 mg PO TID PRN 06/19/15 [History] Estradiol 2 mg PO DAILY 08/03/16 [History] Esomeprazole Magnesium [Nexium] 40 mg PO BID 08/23/16 [History] Levomefolate/B6/B12/Algal Oil [Metanx Capsule] 1 tab PO BID 07/11/17 [History] Orphenadrine [Norflex] 100 mg PO Q12H 07/13/17 [History] Promethazine [Phenergan] 12.5 mg PO Q8H PRN 07/13/17 [History] Gabapentin [Neurontin] 800 mg PO TID 08/09/17 [History] Quetiapine Fumarate [Seroquel] 25 - 50 mg PO HS 08/09/17 [History] Rosuvastatin [Crestor] 20 mg PO QPM 08/09/17 [History] Ergocalciferol (VITAMIN D2) [Vitamin D] 800 unit PO DAILY 09/06/17 [History] Subcutaneous Insulin Pump [T:Slim] 1 each MC AD 09/06/17 [History] 3 Allergy/AdvReac Type Severity Reaction Status Date / Time Cortisone Allergy Anaphylaxis Verified 07/10/17 21:41 hydrocodone Allergy Anaphylaxis Verified 08/09/17 19:31 ketorolac [From Toradol] Allergy Anaphylaxis Verified 07/10/17 21:41 latex Allergy Hives Verified 07/10/17 21:41 metoclopramide [From Reglan] Allergy Anaphylaxis Verified 07/10/17 21:41 ondansetron Allergy Anaphylaxis Verified 09/13/17 03:12 [From Zofran (as hydrochloride)] tramadol [From Ultram] AdvReac Nausea Verified 07/10/17 21:41 Zolpidem [From Ambien] AdvReac Insomnia Verified 07/10/17 21:41 Review of Systems - Constitutional no fever(s) - EENT Nose, mouth and throat: no dizziness - Cardiovascular no chest pain - Respiratory no cough - Gastrointestinal abdominal pain, nausea - Genitourinary Genitourinary: difficulty urinating - Musculoskeletal back pain - Neurological no confusion - Psychiatric anxiety - Hematologic/Lymphatic no easy bleeding - Allergic/Immunologic no throat swelling Exam Initial Vital Signs Temp Pulse Resp BP Pulse Ox 97.4 F L 99 18 124/74 98 09/12/17 21:32 09/12/17 21:32 09/12/17 21:32 09/12/17 21:32 09/12/17 21:32 - General physical appearance Present: well developed, no distress - Eyes Present: PERRL, conjunctiva is clear - ENT Present: normal nares - Neck Present: no masses - Respiratory Present: normal respiratory effort - Cardiovascular Cardiovascular exam IM: RRR - Abdomen Abdomen: Present: soft, suprapubic tenderness. Absent: masses - Integumentary Present: no rash. Absent: no growths, no abnormal pigmentation - Neurologic Present: normal coordination. Absent: disoriented, confused - Additional Findings sahni with clear urine. Urology Results - Labs 09/13/17 03:44 09/13/17 03:44 Abnormal lab results RBC 3.15 M/mcL (3.82-4.97) L 09/13/17 03:44 Hgb 9.8 g/dL (11.5-15.4) L 09/13/17 03:44 Hct 28.3 % (35.3-44.9) L 09/13/17 03:44 ABG pH 7.31 pH Units (7.32-7.45) L 09/13/17 06:01 ABG pO2 106 mmHg (85-104) H 09/13/17 06:01 ABG HCO3 20 mEq/L (21-27) L 09/13/17 06:01 ABG Base Excess -6 mEq/L (-2 to 3) L 09/13/17 06:01 VBG pH 7.28 pH Units (7.32-7.42) L 09/12/17 23:04 VBG pCO2 40 mmHg (41-51) L 09/12/17 23:04 VBG pO2 100 mmHg (25-50) H 09/12/17 23:04 VBG HCO3 19 mEq/L (21-27) L 09/12/17 23:04 Sodium 135 mEq/L (136-145) L 09/13/17 03:44 Carbon Dioxide 21 mEq/L (23-29) L 09/13/17 03:44 BUN 28 mg/dL (6-20) H 09/13/17 03:44 BUN/Creatinine Ratio 28 (6-26) H 09/13/17 03:44 Glucose 298 mg/dL (70-105) H 09/13/17 03:44 POC Glucose 458 (58-89) H* 09/13/17 01:59 Hemoglobin A1c 7.8 % (-5.6) H 09/12/17 22:33 Calcium 8.2 mg/dL (8.6-10.3) L 09/13/17 03:44 AST 46 Units/L (13-39) H 09/12/17 22:33 Alkaline Phosphatase 145 Units/L (34-104) H 09/12/17 22:33 Albumin 3.4 g/dL (3.5-5.7) L 09/12/17 22:33 Beta-Hydroxybutyric Acd > 2.00 mmol/L (0.02-0.27) H 09/12/17 22:33 Urine Glucose (UA) >=1000 mg/dL (Normal) H 09/12/17 21:59 Urine Ketones 15 mg/dL (Negative) H 09/12/17 21:59 Urine Blood Trace (Negative) H 09/12/17 21:59 Urine Yeast Few per hpf (None Seen) H 09/12/17 21:59 Diabetes panel 09/13/17 Range/Units 03:44 Sodium 135 L (136-145) mEq/L Potassium 3.9 (3.5-5.1) mEq/L Chloride 107 (98-107) mEq/L Carbon Dioxide 21 L (23-29) mEq/L BUN 28 H (6-20) mg/dL Creatinine 0.99 (0.60-1.20) mg/dL Glucose 298 H (70-105) mg/dL Calcium 8.2 L (8.6-10.3) mg/dL Calcium panel 09/13/17 09/13/17 Range/Units 03:44 03:44 Calcium 8.2 L (8.6-10.3) mg/dL Phosphorus 2.7 (2.7-4.5) mg/dL Pituitary panel 09/13/17 Range/Units 03:44 Sodium 135 L (136-145) mEq/L Potassium 3.9 (3.5-5.1) mEq/L Chloride 107 (98-107) mEq/L Carbon Dioxide 21 L (23-29) mEq/L BUN 28 H (6-20) mg/dL Creatinine 0.99 (0.60-1.20) mg/dL Glucose 298 H (70-105) mg/dL Calcium 8.2 L (8.6-10.3) mg/dL Adrenal panel 09/13/17 Range/Units 03:44 Sodium 135 L (136-145) mEq/L Potassium 3.9 (3.5-5.1) mEq/L Chloride 107 (98-107) mEq/L Carbon Dioxide 21 L (23-29) mEq/L BUN 28 H (6-20) mg/dL Creatinine 0.99 (0.60-1.20) mg/dL Glucose 298 H (70-105) mg/dL Calcium 8.2 L (8.6-10.3) mg/dL All other labs normal. Consult Discharge Plan - Plan Referrals: Domingo Humphrey DO [Primary Care Provider] -
[2017-09-13] MEDS ORDERED: Cholecalciferol (D-3) 1,000 UNIT TABLET PO SCH (09:00)
[2017-09-13] MEDS ORDERED: Gabapentin 400 MG CAPSULE PO SCH (09:00)
[2017-09-13] MEDS ORDERED: METANX PO SCH (09:00)
[2017-09-13] MEDS ORDERED: Insulin LISPRO 300 UNITS/3 ML VIAL SQ SCH ×2 (11:30→21:00)
[2017-09-13] MEDS ORDERED: *HR* Morphine 2 MG/ML SYRINGE IVP PRN (12:08)
--- NOTE | 2017-09-13 13:36 | Internal Med Progress Note ---
<Vince Marquez - Last Filed: 09/13/17 13:33> Date of Encounter: 09/13/17 Time of Encounter: 13:33 - Assessment and plan (1) DKA (diabetic ketoacidoses) Current Visit: Yes Status: Resolved Assessment and plan: Patient was treated for DKA on 09/10/17 at [facility], but left AMA. On admission BG 820, lactic acid 1.1, glucose in urine, beta-hydroxybutryic acid >2.00, with symptoms of excess thirst, fatigue, N/V. Today her BG POC finger 158. Patient is asymptomatic today. - ct DKA protocol - started 10 Levemir, SSI medium, and full liquids - Morphine PRN started for abdominal pain - will continue to closely follow BG, symptoms, I/O - morning labs Qualifiers: Diabetes mellitus type: type 1 Diabetes mellitus complication detail: without coma Qualified Code(s): E10.10 - Type 1 diabetes mellitus with ketoacidosis without coma (2) Urinary retention Current Visit: Yes Status: Acute Assessment and plan: Valle cath placed in ED on amdission. Nephrology on board - likely developing neurogenic bladder from DM. - per nephrology, keep cath until BG stablizies. - accurate I/O (3) Anemia Current Visit: Yes Status: Acute Assessment and plan: hgb 9.8 today. Patient positive for stool occult on 09/07/17, and had EGD on 09/[address] Hardin with normal esophagus. clinically asymptomatic. - will closely follow H+H - GI consulted - will order prbc if hgb <7 Qualifiers: Anemia type: other cause Other causes of anemia: other cause, not classified Qualified Code(s): D64.89 - Other specified anemias (4) Borderline personality disorder Current Visit: No Status: Chronic (5) DVT prophylaxis Current Visit: Yes Status: Acute Assessment and plan: early ambulation (6) HTN (hypertension) Current Visit: No Status: Chronic Assessment and plan: BP stable, will continue home Rx Qualifiers: Hypertension type: essential hypertension Qualified Code(s): I10 - Essential (primary) hypertension - Subjective Interval history: 37 yo F w/ PMHx of DM type 1, GERD, HTN, HLD, endometriosis, lap demar, lap hysterectomy, and recent hospitalization for DKA in which she left AMA who presented to the ER for evaluation of high blood glucose and nausea/vomiting. Patient reports that her stomach is "torn up" and is unable to eat. She reports that she still has mild nausea nad vomiting, but no longer has excess thirst or fatigue. She has continued stomach pain, she reports 10/10 severity. Patient requested increase in her pain medication and that her pain medication that she received wasn't relieving her pain. - Constitutional Vitals: Temp Pulse Resp BP Pulse Ox 97.5 F L 70 15 95/67 100 09/13/17 11:37 09/13/17 11:50 09/13/17 11:37 09/13/17 11:37 09/13/17 11:37 General appearance: Present: A&O X 3 (overweight), no acute distress, answers questions appropriately - Eye Eye exam: Present: PERRL, conjuntiva pink, sclera anicteric - Respiratory Respiratory exam: Present: CTAB. Absent: accessory muscle use, rales, rhonchi, wheezes - Cardiovascular Cardiovascular exam: Present: RRR, +S1, +S2. Absent: diastolic murmur, gallop, rubs, systolic murmur - GI/Abdominal GI/Abdominal exam: Present: guarding, normal bowel sounds, soft, tenderness ( pain out of proportion to light palpitation.). Absent: diminished bowel sounds , distended, hyperactive bowel sounds, hypoactive bowel sounds, rebound, rigid - Psychiatric Psychiatric exam: Present: normal affect, normal mood Internal Medicine: Result - Labs CBC & Chem 7: 09/13/17 03:44 09/13/17 03:44 Labs: Short CBC 09/13/17 Range/Units 03:44 WBC 6.8 (4.3-11.1) K/mcL Hgb 9.8 L (11.5-15.4) g/dL Hct 28.3 L (35.3-44.9) % Plt Count 170 (140-400) K/mcL Neutrophils # 4.2 (1.6-8.9) K/mcL BMP 09/13/17 03:44 Sodium 135 L Potassium 3.9 Chloride 107 Carbon Dioxide 21 L BUN 28 H Creatinine 0.99 Glucose 298 H Calcium 8.2 L - ABG Interpretation ABG results: ABG ABG pH 7.31 pH Units (7.32-7.45) L 09/13/17 06:01 ABG pCO2 39 mmHg (35-45) 09/13/17 06:01 ABG pO2 106 mmHg (85-104) H 09/13/17 06:01 ABG O2 Saturation 98 % (95-98) 09/13/17 06:01 Consult Discharge Plan - Plan Referrals: Marielena Baltazar CNP [Advanced Practice Nurse] - 09/20/17 2:00 pm Domingo Humphrey DO [Primary Care Provider] - <AmberRonycarlo - Last Filed: 09/13/17 15:31> Date of Encounter: 09/13/17 - Constitutional Vitals: Temp Pulse Resp BP Pulse Ox 97.5 F L 70 15 95/67 100 09/13/17 11:37 09/13/17 11:50 09/13/17 11:37 09/13/17 11:37 09/13/17 11:37 Internal Medicine: Result - Labs CBC & Chem 7: 09/13/17 03:44 09/13/17 03:44 Labs: Short CBC 09/13/17 Range/Units 03:44 WBC 6.8 (4.3-11.1) K/mcL Hgb 9.8 L (11.5-15.4) g/dL Hct 28.3 L (35.3-44.9) % Plt Count 170 (140-400) K/mcL Neutrophils # 4.2 (1.6-8.9) K/mcL BMP 09/13/17 03:44 Sodium 135 L Potassium 3.9 Chloride 107 Carbon Dioxide 21 L BUN 28 H Creatinine 0.99 Glucose 298 H Calcium 8.2 L - ABG Interpretation ABG results: ABG ABG pH 7.31 pH Units (7.32-7.45) L 09/13/17 06:01 ABG pCO2 39 mmHg (35-45) 09/13/17 06:01 ABG pO2 106 mmHg (85-104) H 09/13/17 06:01 ABG O2 Saturation 98 % (95-98) 09/13/17 06:01 - Attending Attestation I examined this patient and my medical decision-making was reviewed with the Resident Physician Dr. Marquez. I agree with the documented findings, disposition and treatment plan as described except to the extent set forth below. 37 yo F w/ PMHx of DM type 1, GERD, HTN, HLD , Chronic urinary retentions pt wh recently left AMA from my our hospital presented to ER last night with severe hyperglycemia, mild DKA and Urinary retention. Pt was placed on Insulin gtt initially. Now she is off the insulin gtt. still c/o abdominal pain , nausea. Gen: A, A, O x 3 Chest: CTA, No wheezing No crackles Heart: S1S2+ RRR Abd: Soft, No guarding / no rigidity a/p 1. Mild DKA - resolved 2. Severe hyperglycemic 3. DM1- uncontrolled non compliance with meds counseled about it Cont ISS + levemir 15 U QHS she does use Insulin pump at home.. Need to interrogate whether it is working properly or not 4. Urinary retention cont Valle for now urology on board may need straight cath frequent after going home 5. Acute on chronic gastroparesis cont anti emetics pt stated she is allergic to Metoprolol and Erythromycin may get benefit with GI pacemaker.. GI consulted
[2017-09-13] MEDS: *HR* Morphine 2 MG/ML SYRINGE IVP PRN ×2 (15:44→20:02)
[2017-09-13] MEDS: Orphenadrine 100 MG TABLET.ER PO SCH (15:49)
[2017-09-13] MEDS: *HR* Promethazine 25 MG/ML VIAL IVP PRN ×2 (16:48→20:01)
[2017-09-13] MEDS: Insulin LISPRO 300 UNITS/3 ML VIAL SQ SCH ×2 (16:48→20:02)
[2017-09-13] MEDS ORDERED: Sennosides 8.6 MG TABLET PO PRN (16:55)
[2017-09-13] MEDS: Nicotine 14 MG PATCH.TD24 TD SCH (17:46)
[2017-09-13] MEDS: Gabapentin 400 MG CAPSULE PO SCH (20:00)
[2017-09-14] MEDS: *HR* Promethazine 25 MG/ML VIAL IVP PRN ×4 (03:28→21:58)
[2017-09-14] MEDS: Orphenadrine 100 MG TABLET.ER PO SCH ×2 (03:28→15:19)
[2017-09-14] MEDS: *HR* Morphine 2 MG/ML SYRINGE IVP PRN ×4 (03:29→20:30)
[2017-09-14 04:13] LABS: Hemoglobin 10.3 g/dL (11.5-15.4); Mean Corpuscular HGB Conc 33.2 g/dL (31.6-35.5); Mean Corpuscular Hemoglobin 30.4 pg (28.0-33.3); Mean Corpuscular Volume 91.4 fL (83.0-100.0); Mean Platelet Volume 10.3 fL (9.4-12.4); Platelet Count 203 K/mcL (140-400); Red Blood Count 3.39 M/mcL (3.82-4.97); Red Cell Distribution Width 13.2 % (11.5-14.5)
[2017-09-14 04:36] LABS: Alanine Aminotransferase 37 Units/L (7-52); Albumin/Globulin Ratio 1.1 (1.1-2.2); Alkaline Phosphatase 110 Units/L (34-104); Aspartate Amino Transferase 37 Units/L (13-39); BUN/Creatinine Ratio 18 (6-26); Bilirubin,Total 0.3 mg/dL (0.3-1.0); Blood Urea Nitrogen 13 mg/dL (6-20); Calcium 8.2 mg/dL (8.6-10.3); Carbon Dioxide 21 mEq/L (23-29); Chloride 112 mEq/L (98-107); Globulin 2.8 g/dL (2.4-3.5); Glucose 118 mg/dL (70-105); Osmolality,Calculated 295 (280-300); Potassium 4.3 mEq/L (3.5-5.1); Sodium 142 mEq/L (136-145); Total Protein 5.8 g/dL (6.4-8.9); eGFR For African Americans > 60 (> 60); eGFR For Non-African Americans > 60 (> 60)
[2017-09-14] MEDS ORDERED: *HR* Enoxaparin 40 MG/0.4 ML SYRINGE SQ SCH (06:00)
[2017-09-14] MEDS: *HR* Enoxaparin 40 MG/0.4 ML SYRINGE SQ SCH (06:48)
[2017-09-14] MEDS: Insulin LISPRO 300 UNITS/3 ML VIAL SQ SCH ×4 (06:50→20:35)
[2017-09-14] MEDS: Insulin DETEMIR 100 UNIT/ML X5UNITS SQ SCH ×2 (08:09→11:21)
[2017-09-14] MEDS: Nicotine 14 MG PATCH.TD24 TD SCH (08:09)
[2017-09-14] MEDS: Cholecalciferol (D-3) 1,000 UNIT TABLET PO SCH (08:10)
[2017-09-14] MEDS: Gabapentin 400 MG CAPSULE PO SCH ×3 (08:10→20:29)
[2017-09-14] MEDS: *HR* Dextrose 50 % in Water (Syg) 50 ML SYRINGE IVP PRN (08:24)
[2017-09-14] MEDS: *HR* LORazepam 1 MG TABLET PO PRN ×3 (08:33→20:34)
[2017-09-14] MEDS ORDERED: *HR* Morphine Immed Rel 30 MG TABLET PO PRN (10:20)
--- NOTE | 2017-09-14 10:56 | Gastroenterology Consult Note ---
<Iqra Crockett M - Last Filed: 09/14/17 10:56> Date of Encounter: 09/14/17 Time of Encounter: 10:00 - Assessment and plan (1) Anemia Current Visit: Yes Status: Acute Assessment and plan: Pt had hematemesis last week which was normal. She remains anemic. Will repeat EGD as she may have AVM. She also complains of bright red rectal bleeding will also schedule for colonoscopy. Qualifiers: Anemia type: other cause Other causes of anemia: other cause, not classified Qualified Code(s): D64.89 - Other specified anemias (2) Bright red rectal bleeding Current Visit: Yes Status: Acute Assessment and plan: colonoscopy tomorrow (3) Abdominal pain Current Visit: No Status: Acute Assessment and plan: May be due to gastroparesis, will repeat EGD, continue PPI. Qualifiers: Abdominal location: left upper quadrant Qualified Code(s): R10.12 - Left upper quadrant pain (4) Gastroparesis due to DM Current Visit: No Status: Chronic - Time Spent With Patient Total time spent is greater than 50% in coordination of care (as documented) at patient's floor/unit and/or counseling patient: GI History of Present Illness - Data of Consult Patient: known to practice within the last 3 years Consult date: 09/14/17 Requesting Physician: German Pierre MD - Consult Narrative Reason for consult: abdominal pain History of present illness: Ms. Gaming is a 37 year old female with PMHx of asthma, DM, GERD, HLD, and hypertension. She was seen inpatient last week for hematemesis and black stools and had an EGD which was normal. She signed out AMA on 09/10/17. She presented back to ER on 09/12/17 and was admitted for DKA. She has a history of Gastroparesis and has had botox injections in the past. She continued to complain of abdominal pain, LUQ radiating down to LLQ and in the epigastric and RUQ. She complain s of constipation since being admitted and states she has seen some bright red blood in the toilet. She complains of nausea and vomiting but is eating [place] at the time of the exam. EGD 09/08/17 normal Colonoscopy 06/04/2011 Dr. Mccoy: Normal NSAIDs: None Anticoagulation: None Past Med Surg Social Fam HX - Past Medical History Medical history: asthma, diabetes, GERD, hyperlipidemia, hypertension, other Psychiatric history: anxiety, depression, panic disorder - Past Surgical History Surgical History: appendectomy, cholecystectomy, hysterectomy, knee replacement , other - Social History Smoking Status: Current some day smoker Packs per day: 0.5 Smokeless Tobacco Status: No Alcohol use: none Drug use: none - Family History Mother Family Member Ethnicity: Non- Living Status: Still Living Hx Family Cardiac Disorders: Yes (HTN, HLD) Hx Family Respiratory Disorders: Yes (Asthma) Father Family Member Ethnicity: Non- Living Status: Still Living Hx Family Cardiac Disorders: Yes (HTN, HLD) Hx Family Respiratory Disorders: Yes Hx Family GI Disorders: Yes (cirrhosis) Hx Family Endocrine Disorder: Yes (Cirrhosis) Hx Family Autoimmune Disorders: Yes (Alkylosing Spondylitis) Brother Family Member Ethnicity: Non- Living Status: Still Living Hx Family Endocrine Disorder: Yes (Pancreatitis, Cirrhosis) Sister Family Member Ethnicity: Non- Living Status: Still Living Grandfather Family Member Ethnicity: Non- Living Status: Hx Family Cardiac Disorders: Yes ([place], Stroke) Hx Family Endocrine Disorder: Yes (DM) Review of Systems: GI: as per [facility]: denies fever, has some chills EYES: denies yellow discoloration ENT: denies pain with swallowing or difficulty swallowing CARDIO: denies chest pain, palpitations RESP: shortness of breath with exertion : has sahni cath due to urinary retention NEURO: weakness HEME: Denies any bruising MS: chronic joint and back pain DERM: denies rash or itching PSYCH:history of anxiety or depression - Constitutional Vitals: Temp Pulse Resp BP Pulse Ox 97.6 F 92 20 116/76 93 09/14/17 07:12 09/14/17 08:15 09/14/17 07:12 09/14/17 07:12 09/14/17 07:12 Exam: CONSTITUTIONAL:~alert, no acute distress.~HEAD:~normocephalic.~EYES:~no jaundice.~NECK:~no obvious swelling.~HEART:~regular rate and rhythm, no murmurs. ~LUNGS:~bilateral good air entry.~ABDOMEN:~non distended, soft, tender with very light palpation unable to palpate for masses or organomegaly, ~RECTAL EXAM: ~Deferred.~EXTREMITIES:~no clubbing, cyanosis or edema.~SKIN:~no stigmata of chronic liver disease.~NEUROLOGIC:~no obvious focal defect.~~~~ Results - Labs CBC & Chem 7: 09/14/17 03:28 09/14/17 03:28 Labs: Last Result Calcium 8.2 mg/dL (8.6-10.3) L 09/14/17 03:28 Troponin I < 0.03 ng/mL (< 0.04) 09/12/17 22:33 Urine Opiates Screen Negative ng/mL (Fzofmg=822) 09/12/17 21:59 Entire Visit Hgb 10.3 g/dL (11.5-15.4) L 09/14/17 03:28 Hct 31.0 % (35.3-44.9) L 09/14/17 03:28 Total Bilirubin 0.3 mg/dL (0.3-1.0) 09/14/17 03:28 AST 37 Units/L (13-39) 09/14/17 03:28 ALT 37 Units/L (7-52) 09/14/17 03:28 - ABG ABG results: ABG ABG pH 7.31 pH Units (7.32-7.45) L 09/13/17 06:01 ABG pCO2 39 mmHg (35-45) 09/13/17 06:01 ABG pO2 106 mmHg (85-104) H 09/13/17 06:01 ABG O2 Saturation 98 % (95-98) 09/13/17 06:01 Consult Discharge Plan - Plan Referrals: Marielena Baltazar DEGREASER OPERATOR [Advanced Practice Nurse] - 09/20/17 2:00 pm Domingo Humphrey DO [Primary Care Provider] - <Vincent West - Last Filed: 09/15/17 13:47> Date of Encounter: 09/14/17 - Time Spent With Patient Total time spent is greater than 50% in coordination of care (as documented) at patient's floor/unit and/or counseling patient: GI History of Present Illness - Data of Consult Requesting Physician: German Pierre MD - Consult Narrative History of present illness: Ms. Gaming is a 37 year old female - Constitutional Vitals: Temp Pulse Resp BP Pulse Ox 97.8 F 84 16 175/96 98 09/15/17 13:03 09/15/17 13:03 09/15/17 13:03 09/15/17 13:03 09/15/17 13:03 Results - Labs CBC & Chem 7: 09/15/17 05:40 09/15/17 05:40 Labs: Last Result Calcium 8.3 mg/dL (8.6-10.3) L 09/15/17 05:40 Troponin I < 0.03 ng/mL (< 0.04) 09/12/17 22:33 Urine Opiates Screen Negative ng/mL ([id number]=[id number]) 09/12/17 21:59 Entire Visit Hgb 10.1 g/dL (11.5-15.4) L 09/15/17 05:40 Hct 30.3 % (35.3-44.9) L 09/15/17 05:40 Total Bilirubin 0.4 mg/dL (0.3-1.0) 09/15/17 05:40 AST 100 Units/L (13-39) H 09/15/17 05:40 ALT 67 Units/L (7-52) H 09/15/17 05:40 - ABG ABG results: ABG ABG pH 7.31 pH Units (7.32-7.45) L 09/13/17 06:01 ABG pCO2 39 mmHg (35-45) 09/13/17 06:01 ABG pO2 106 mmHg (85-104) H 09/13/17 06:01 ABG O2 Saturation 98 % (95-98) 09/13/17 06:01 - Impressions Impressions Abdomen/Pelvis CT 09/14/17 15:52 IMPRESSION: 1. No acute findings within the abdomen or pelvis. 2. Free pelvic fluid, increased compared to the previous study but likely physiologic. 3. Status post cholecystectomy and hysterectomy. D/ / 09/14/2017 17:17:14 [facility] Madrid [facility] Interpreting Provider: Jaylan Madrid MD - Attending Attestation I have personally performed a face to face evaluation on this patient. I have reviewed and agree with the care plan. History and Exam by me shows:as above.
[2017-09-14] MEDS ORDERED: 0.9 % Sodium Chloride 1,000 ML IVC SCH (16:00)
[2017-09-14] MEDS ORDERED: Polyethylene Glycol 3350 255 GM POWDER PO ONE (16:00)
--- NOTE | 2017-09-14 19:55 | Internal Med Progress Note ---
Date of Encounter: 09/14/17 Time of Encounter: 13:00 - Assessment and plan (1) Abdominal pain Current Visit: No Status: Acute Assessment and plan: I will obtain CT abdomen and pelvis to rule out acute intra-abdominal pelvic pathology. Lipase during this admission was 5. Follow-up with gastroenterology. Plan for EGD and colonoscopy to workup her abdominal pain as well as GI bleeding. We will treat her with IV morphine for now. She has a high risk for mortality and morbidity and complications due to treatment with IV controlled substances. Qualifiers: Abdominal location: epigastric Qualified Code(s): R10.13 - Epigastric pain (2) Borderline personality disorder Current Visit: No Status: Chronic Assessment and plan: Continue chronic meds. (3) Poorly controlled type 1 diabetes mellitus Current Visit: No Status: Acute Assessment and plan: Diabetes education. Continue subcutaneous insulin. (4) GI bleed Current Visit: No Status: Acute Assessment and plan: Hemoglobin at 10.7 today. Has stabilized. Continue to monitor. Follow-up with GI regarding workup. Qualifiers: GI bleed type/associated pathology: gastrointestinal hemorrhage with hematemesis Qualified Code(s): K92.0 - Hematemesis (5) Urinary retention Current Visit: Yes Status: Acute Assessment and plan: Valle cath placed in ED on amdission. Appreciate urology recommendations - likely developing neurogenic bladder from DM. - per urology, keep cath until BG stablizies. - accurate I/O (6) DKA (diabetic ketoacidoses) Current Visit: Yes Status: Acute Qualifiers: Diabetes mellitus type: type 1 Diabetes mellitus complication detail: without coma Qualified Code(s): E10.10 - Type 1 diabetes mellitus with ketoacidosis without coma - Subjective Interval history: Patient reports severe epigastric and right upper quadrant abdominal pain improves only with IV morphine. Associated with nausea and vomiting. She was given (oral pain medication but she states that she vomited and could not hold it down. - Constitutional Vitals: Temp Pulse Resp BP Pulse Ox 98.5 F 81 20 132/82 96 09/14/17 16:34 09/14/17 16:34 09/14/17 16:34 09/14/17 16:34 09/14/17 16:34 General appearance: Present: mild distress (Mild distress due to pain, tearful.) , A&O X 3 (overweight), answers questions appropriately - Eye Eye exam: Present: PERRL, conjuntiva pink, sclera anicteric Pupils: Present: PERRL - Respiratory Respiratory exam: Present: CTAB. Absent: accessory muscle use, rales, rhonchi, wheezes - Cardiovascular Cardiovascular exam: Present: RRR, +S1, +S2. Absent: diastolic murmur, gallop, rubs, systolic murmur - GI/Abdominal GI/Abdominal exam: Present: normal bowel sounds, soft, no peritoneal signs. Absent: distended, guarding, tenderness - Extremities Exam Extremities exam: Present: warm, radial pulses palpable and symmetrical. Absent : calf tenderness, cyanotic, pedal edema - Neurological Exam Neurological exam: Present: CN II-XII intact, oriented X3, no focal deficits. Absent: pronater drift, facial droop, speech deficit - Skin Skin exam: Present: dry, intact Internal Medicine: Result - Labs CBC & Chem 7: 09/14/17 03:28 09/14/17 03:28 Labs: Short CBC 09/14/17 Range/Units 03:28 WBC 7.5 (4.3-11.1) K/mcL Hgb 10.3 L (11.5-15.4) g/dL Hct 31.0 L (35.3-44.9) % Plt Count 203 (140-400) K/mcL BMP 09/14/17 03:28 Sodium 142 Potassium 4.3 Chloride 112 H Carbon Dioxide 21 L BUN 13 Creatinine 0.72 Glucose 118 H Calcium 8.2 L Liver Function 09/14/17 Range/Units 03:28 Total Bilirubin 0.3 (0.3-1.0) mg/dL AST 37 (13-39) Units/L ALT 37 (7-52) Units/L Alkaline Phosphatase 110 H (34-104) Units/L Albumin 3.0 L (3.5-5.7) g/dL - ABG Interpretation ABG results: ABG ABG pH 7.31 pH Units (7.32-7.45) L 09/13/17 06:01 ABG pCO2 39 mmHg (35-45) 09/13/17 06:01 ABG pO2 106 mmHg (85-104) H 09/13/17 06:01 ABG O2 Saturation 98 % (95-98) 09/13/17 06:01 - Impressions Impressions Abdomen/Pelvis CT 09/14/17 15:52 IMPRESSION: 1. No acute findings within the abdomen or pelvis. 2. Free pelvic fluid, increased compared to the previous study but likely physiologic. 3. Status post cholecystectomy and hysterectomy. D/ / 09/14/2017 17:17:14 Jaylan Madrid MD / servando Interpreting Provider: Jaylan Madrid MD Consult Discharge Plan - Plan Referrals: Marielena Baltazar, JOVANY [Advanced Practice Nurse] - 09/20/17 2:00 pm Domingo Humphrey DO [Primary Care Provider] -
[2017-09-14] MEDS ORDERED: *HR* Morphine 2 MG/ML SYRINGE IVP ONE (22:27)
[2017-09-15] MEDS: Orphenadrine 100 MG TABLET.ER PO SCH ×2 (01:01→16:40)
[2017-09-15] MEDS: *HR* Promethazine 25 MG/ML VIAL IVP PRN ×4 (04:35→23:18)
[2017-09-15] MEDS: *HR* Enoxaparin 40 MG/0.4 ML SYRINGE SQ SCH (04:36)
[2017-09-15] MEDS: *HR* Morphine 2 MG/ML SYRINGE IVP PRN ×3 (04:36→16:57)
[2017-09-15] MEDS ORDERED: 0.9 % Sodium Chloride 1,000 ML ONE (04:47)
[2017-09-15 06:09] LABS: Basophils % 0.4 %; Eosinophils # 0.2 K/mcL (0.0-0.6); Eosinophils % 3.5 %; Hematocrit 30.3 % (35.3-44.9); Hemoglobin 10.1 g/dL (11.5-15.4); Immature Granulocytes % 0.2 % (0-4); Lymphocytes # 1.4 K/mcL (0.6-4.6); Lymphocytes % 29.3 %; Mean Corpuscular HGB Conc 33.3 g/dL (31.6-35.5); Mean Corpuscular Hemoglobin 30.5 pg (28.0-33.3); Mean Corpuscular Volume 91.5 fL (83.0-100.0); Mean Platelet Volume 10.4 fL (9.4-12.4); Monocytes # 0.2 K/mcL (0.0-1.3); Monocytes % 4.9 %; Platelet Count 168 K/mcL (140-400); Red Blood Count 3.31 M/mcL (3.82-4.97); Red Cell Distribution Width 13.1 % (11.5-14.5); Segmented Neutrophils % 61.7 %
[2017-09-15 06:24] LABS: Alanine Aminotransferase 67 Units/L (7-52); Albumin 3.1 g/dL (3.5-5.7); Albumin/Globulin Ratio 1.1 (1.1-2.2); Alkaline Phosphatase 148 Units/L (34-104); Aspartate Amino Transferase 100 Units/L (13-39); BUN/Creatinine Ratio 11 (6-26); Bilirubin,Total 0.4 mg/dL (0.3-1.0); Blood Urea Nitrogen 8 mg/dL (6-20); Calcium 8.3 mg/dL (8.6-10.3); Carbon Dioxide 24 mEq/L (23-29); Chloride 108 mEq/L (98-107); Globulin 2.8 g/dL (2.4-3.5); Glucose 265 mg/dL (70-105); Osmolality,Calculated 290 (280-300); Potassium 3.6 mEq/L (3.5-5.1); Sodium 136 mEq/L (136-145); Total Protein 5.9 g/dL (6.4-8.9); eGFR For African Americans > 60 (> 60); eGFR For Non-African Americans > 60 (> 60)
[2017-09-15] MEDS: Gabapentin 400 MG CAPSULE PO SCH ×3 (08:12→22:14)
[2017-09-15] MEDS: Nicotine 14 MG PATCH.TD24 TD SCH (08:12)
[2017-09-15] MEDS: Cholecalciferol (D-3) 1,000 UNIT TABLET PO SCH (08:13)
[2017-09-15] MEDS: Insulin LISPRO 300 UNITS/3 ML VIAL SQ SCH ×4 (08:13→22:18)
--- NOTE | 2017-09-15 12:59 | Anesthesia Evaluation PreOp ---
Date of Encounter: 09/15/17 Time of Encounter: 12:56 - Past History Planned Operation: EGD/Colonoscopy Cardiac History: HTN, Hyperlipidemia Pulmonary History: Smoker CAN LINE EXAMINER History: Denies Any Significant HX Other Medical History: Diabetes Type I Anesthesia History: No Prior Anesthetic Complications, Past Anesthesia : No (SARAH) Alcohol Use: none Drug use: none Medications and Allergies Lisinopril [Zestril] 10 mg PO DAILY 04/17/15 [History] Albuterol Sulfate [Albuterol Inhaler] 2 puff IH Q4HR PRN 06/19/15 [History] LORazepam [Ativan] 2 mg PO TID PRN 06/19/15 [History] Estradiol 2 mg PO DAILY 08/03/16 [History] Esomeprazole Magnesium [Nexium] 40 mg PO BID 08/23/16 [History] Levomefolate/B6/B12/Algal Oil [Metanx Capsule] 1 tab PO BID 07/11/17 [History] Orphenadrine [Norflex] 100 mg PO Q12H 07/13/17 [History] Promethazine [Phenergan] 12.5 mg PO Q8H PRN 07/13/17 [History] Gabapentin [Neurontin] 800 mg PO TID 08/09/17 [History] Quetiapine Fumarate [Seroquel] 25 - 50 mg PO HS 08/09/17 [History] Rosuvastatin [Crestor] 20 mg PO QPM 08/09/17 [History] Ergocalciferol (VITAMIN D2) [Vitamin D] 800 unit PO DAILY 09/06/17 [History] Subcutaneous Insulin Pump [T:Slim] 1 each AD 09/06/17 [History] 3 Allergy/AdvReac Type Severity Reaction Status Date / Time Cortisone Allergy Anaphylaxis Verified 07/10/17 21:41 hydrocodone Allergy Anaphylaxis Verified 08/09/17 19:31 ketorolac [From Toradol] Allergy Anaphylaxis Verified 07/10/17 21:41 latex Allergy Hives Verified 07/10/17 21:41 metoclopramide [From Reglan] Allergy Anaphylaxis Verified 07/10/17 21:41 ondansetron Allergy Anaphylaxis Verified 09/13/17 03:12 [From Zofran (as hydrochloride)] tramadol [From Ultram] AdvReac Nausea Verified 07/10/17 21:41 Zolpidem [From Ambien] AdvReac Insomnia Verified 07/10/17 21:41 - Meds/Allergy Pre-op Review Medications Reviewed: Yes Allergies Reviewed: Yes Beta Blockers on Current Med List: No Anesthesia Results - Labs 09/15/17 05:40 09/15/17 05:40 - Imaging EKG: report reviewed (SR) Anesthesia Exam NPO (# of Hours): > 8 hrs - HEENT Pupil (Motor): Pupils equal, EOMI Mallampati: II Teeth: Normal Oral Opening: Greater than 3 - CAN LINE EXAMINER LOC: Oriented CAN LINE EXAMINER Motor: Normal RUE, Normal LUE, Normal RLE, Normal LLE, Normal Face CAN LINE EXAMINER Sensory: Normal: RUE, LUE, RLE, LLE, Face - Cardiac Rhythm: Regular Murmur: None JVD: No Carotid Bruit: No - Pulmonary Breath Sounds: bilateral Clear Respiratory Effort: Symmetrical Anesthesia Assess/Plan ASA Score: 3 Modified Marcy Scale for Level of Consciousness: Anixous, agitated or restless Anesthetic Plan: MAC Autologous Blood: Yes Monitoring Plan: Standard Monitors Recovery Plan: Other
[2017-09-15] MEDS ORDERED: Propofol 500 MG/50 ML INFUS..BTL ONE (13:31)
[2017-09-15] MEDS: Insulin DETEMIR 100 UNIT/ML X5UNITS SQ SCH (16:45)
--- NOTE | 2017-09-15 18:19 | Internal Med Progress Note ---
Date of Encounter: 09/15/17 Time of Encounter: 18:16 - Assessment and plan (1) Abdominal pain Current Visit: No Status: Acute Assessment and plan: CT abdomen and pelvis was negative. Lipase during this admission was 5. Follow-up with gastroenterology. EGD showed a nonbleeding gastric ulcer. Colonoscopy with no source of bleeding. Continue with PPI. We will treat stop IV morphine and switched to oral morphine for pain. She reports anaphylactic reaction to hydrocodone. I suspect medication misuse versus abuse and therefore I would hold off from IV opioids. I will switch to non-opioid options as soon as possible. Unfortunately she cannot take NSAIDS, and she has multiple allergies. Qualifiers: Abdominal location: epigastric Qualified Code(s): R10.13 - Epigastric pain (2) Borderline personality disorder Current Visit: No Status: Chronic Assessment and plan: Continue chronic meds. (3) Poorly controlled type 1 diabetes mellitus Current Visit: No Status: Acute Assessment and plan: Diabetes education. Continue subcutaneous insulin. (4) GI bleed Current Visit: No Status: Acute Assessment and plan: Check hemoglobin in the morning. No evidence of GI bleeding on endoscopic workup. Qualifiers: GI bleed type/associated pathology: gastrointestinal hemorrhage with hematemesis Qualified Code(s): K92.0 - Hematemesis (5) Urinary retention Current Visit: Yes Status: Acute Assessment and plan: Valle cath placed in ED on amdission. Appreciate urology recommendations - likely developing neurogenic bladder from DM. - per urology, keep cath until BG stablizies. - accurate I/O (6) DKA (diabetic ketoacidoses) Current Visit: Yes Status: Acute Qualifiers: Diabetes mellitus type: type 1 Diabetes mellitus complication detail: without coma Qualified Code(s): E10.10 - Type 1 diabetes mellitus with ketoacidosis without coma - Subjective Interval history: Patient reports moderate epigastric and right upper quadrant abdominal pain that only improves with IV morphine. Her nausea has been better controlled today. - Constitutional Vitals: Temp Pulse Resp BP Pulse Ox 98.2 F 82 18 138/84 98 09/15/17 14:35 09/15/17 17:00 09/15/17 17:00 09/15/17 17:00 09/15/17 17:00 General appearance: Present: mild distress (Mild distress due to pain, tearful.) , A&O X 3 (overweight), answers questions appropriately - Eye Eye exam: Present: PERRL, conjuntiva pink, sclera anicteric Pupils: Present: PERRL - Respiratory Respiratory exam: Present: CTAB. Absent: accessory muscle use, rales, rhonchi, wheezes - Cardiovascular Cardiovascular exam: Present: RRR, +S1, +S2. Absent: diastolic murmur, gallop, rubs, systolic murmur - GI/Abdominal GI/Abdominal exam: Present: normal bowel sounds, soft, no peritoneal signs. Absent: distended, tenderness - Extremities Exam Extremities exam: Present: warm, radial pulses palpable and symmetrical. Absent : calf tenderness, cyanotic, pedal edema - Skin Skin exam: Present: dry, intact Internal Medicine: Result - Labs CBC & Chem 7: 09/15/17 05:40 09/15/17 05:40 Labs: Short CBC 09/15/17 Range/Units 05:40 WBC 4.9 (4.3-11.1) K/mcL Hgb 10.1 L (11.5-15.4) g/dL Hct 30.3 L (35.3-44.9) % Plt Count 168 (140-400) K/mcL Neutrophils # 3.0 (1.6-8.9) K/mcL BMP 09/15/17 05:40 Sodium 136 Potassium 3.6 Chloride 108 H Carbon Dioxide 24 BUN 8 Creatinine 0.74 Glucose 265 H Calcium 8.3 L Liver Function 09/15/17 Range/Units 05:40 Total Bilirubin 0.4 (0.3-1.0) mg/dL AST 100 H (13-39) Units/L ALT 67 H (7-52) Units/L Alkaline Phosphatase 148 H (34-104) Units/L Albumin 3.1 L (3.5-5.7) g/dL - ABG Interpretation ABG results: ABG ABG pH 7.31 pH Units (7.32-7.45) L 09/13/17 06:01 ABG pCO2 39 mmHg (35-45) 09/13/17 06:01 ABG pO2 106 mmHg (85-104) H 09/13/17 06:01 ABG O2 Saturation 98 % (95-98) 09/13/17 06:01 - Impressions Impressions Abdomen/Pelvis CT 09/14/17 15:52 IMPRESSION: 1. No acute findings within the abdomen or pelvis. 2. Free pelvic fluid, increased compared to the previous study but likely physiologic. 3. Status post cholecystectomy and hysterectomy. D/ / 09/14/2017 17:17:14 Jaylan Madrid MD / servando Interpreting Provider: Jaylan Madrid MD Consult Discharge Plan - Plan Referrals: Marielena Baltazar, JOVANY [Advanced Practice Nurse] - 09/20/17 2:00 pm Domingo Humphrey DO [Primary Care Provider] - Christ Almeida MD [Partnered Physician] - (Needs follow up in 2-4 weeks after discharge for management of neurogenic bladder.)
[2017-09-15] MEDS: *HR* LORazepam 1 MG TABLET PO PRN (18:26)
[2017-09-15] MEDS: *HR* Morphine Immed Rel 30 MG TABLET PO PRN (22:15)
[2017-09-16] MEDS: *HR* LORazepam 1 MG TABLET PO PRN ×2 (02:19→09:04)
[2017-09-16] MEDS: *HR* Morphine Immed Rel 30 MG TABLET PO PRN ×3 (02:19→20:04)
[2017-09-16] MEDS: Orphenadrine 100 MG TABLET.ER PO SCH ×2 (04:42→15:33)
[2017-09-16] MEDS: *HR* Enoxaparin 40 MG/0.4 ML SYRINGE SQ SCH (04:43)
[2017-09-16] MEDS ORDERED: *HR* Morphine 2 MG/ML SYRINGE IVP ONE (05:01)
[2017-09-16] MEDS: *HR* Promethazine 25 MG/ML VIAL IVP PRN ×3 (05:16→16:51)
[2017-09-16 06:30] LABS: Hematocrit 29.4 % (35.3-44.9); Mean Corpuscular Hemoglobin 30.1 pg (28.0-33.3); Mean Corpuscular Volume 88.6 fL (83.0-100.0); Platelet Count 199 K/mcL (140-400); Red Blood Count 3.32 M/mcL (3.82-4.97); Red Cell Distribution Width 12.7 % (11.5-14.5)
[2017-09-16 08:05] LABS: Alanine Aminotransferase 64 Units/L (7-52); Albumin/Globulin Ratio 1.1 (1.1-2.2); Alkaline Phosphatase 228 Units/L (34-104); Aspartate Amino Transferase 93 Units/L (13-39); BUN/Creatinine Ratio 11 (6-26); Bilirubin,Total 0.4 mg/dL (0.3-1.0); Blood Urea Nitrogen 8 mg/dL (6-20); Calcium 8.3 mg/dL (8.6-10.3); Carbon Dioxide 26 mEq/L (23-29); Chloride 106 mEq/L (98-107); Globulin 2.8 g/dL (2.4-3.5); Glucose 312 mg/dL (70-105); Osmolality,Calculated 294 (280-300); Potassium 3.6 mEq/L (3.5-5.1); Sodium 137 mEq/L (136-145); Total Protein 5.8 g/dL (6.4-8.9); eGFR For African Americans > 60 (> 60); eGFR For Non-African Americans > 60 (> 60)
[2017-09-16] MEDS: Nicotine 14 MG PATCH.TD24 TD SCH (08:12)
[2017-09-16] MEDS: Insulin DETEMIR 100 UNIT/ML X5UNITS SQ SCH (08:12)
[2017-09-16] MEDS: Gabapentin 400 MG CAPSULE PO SCH ×3 (08:13→20:04)
[2017-09-16] MEDS: Cholecalciferol (D-3) 1,000 UNIT TABLET PO SCH (08:13)
[2017-09-16] MEDS: Insulin LISPRO 300 UNITS/3 ML VIAL SQ SCH ×4 (08:14→20:10)
[2017-09-16] MEDS: *HR* Dextrose 50 % in Water (Syg) 50 ML SYRINGE IVP PRN ×7 (10:37→23:07)
[2017-09-16 12:41] LABS: BUN/Creatinine Ratio 10 (6-26); Blood Urea Nitrogen 7 mg/dL (6-20); Calcium 8.6 mg/dL (8.6-10.3); Carbon Dioxide 26 mEq/L (23-29); Chloride 110 mEq/L (98-107); Glucose 118 mg/dL (70-105); Osmolality,Calculated 289 (280-300); Potassium 2.7 mEq/L (3.5-5.1); Sodium 140 mEq/L (136-145); eGFR For African Americans > 60 (> 60); eGFR For Non-African Americans > 60 (> 60)
[2017-09-16] MEDS ORDERED: D10% in 0.2 % NACL 250 ML IVC SCH (17:00)
[2017-09-16] MEDS ORDERED: D10% in Water 500 ML IVC ONE (17:51)
--- NOTE | 2017-09-16 19:20 | Internal Med Progress Note ---
Date of Encounter: 09/16/17 Time of Encounter: 11:00 - Assessment and plan (1) Abdominal pain Current Visit: No Status: Acute Assessment and plan: CT abdomen and pelvis was negative. Lipase during this admission was 5. Follow-up with gastroenterology. EGD showed a nonbleeding gastric ulcer. Colonoscopy with no source of bleeding. Continue with PPI. We will continue to hold IV morphine and switched to oral morphine for pain. She reports anaphylactic reaction to hydrocodone. I suspect medication misuse versus abuse and therefore I would hold off from IV opioids. I will switch to non-opioid options as soon as possible. Unfortunately she cannot take NSAIDS, and she has multiple allergies. I discussed the case with advertising photographer he recommends consideration of refer to [facility] for gastric pacemaker placement since her symptoms are likely related to gastroparesis. Qualifiers: Abdominal location: epigastric Qualified Code(s): R10.13 - Epigastric pain (2) Borderline personality disorder Current Visit: No Status: Chronic Assessment and plan: Continue chronic meds. (3) Poorly controlled type 1 diabetes mellitus Current Visit: No Status: Acute Assessment and plan: Diabetes education. She has been persistently hypoglycemic and no associated decreased oral intake. We will hold long-acting insulin and continue with coverage for now. (4) GI bleed Current Visit: No Status: Acute Assessment and plan: Check hemoglobin in the morning. No evidence of GI bleeding on endoscopic workup. Qualifiers: GI bleed type/associated pathology: gastrointestinal hemorrhage with hematemesis Qualified Code(s): K92.0 - Hematemesis (5) Urinary retention Current Visit: Yes Status: Acute Assessment and plan: She refuses straight catheterization. I discussed the case with urology recommends inserting Valle catheter. She will be discharged with a Valle catheter and follow-up with urology in the office. (6) DKA (diabetic ketoacidoses) Current Visit: Yes Status: Acute Qualifiers: Diabetes mellitus type: type 1 Diabetes mellitus complication detail: without coma Qualified Code(s): E10.10 - Type 1 diabetes mellitus with ketoacidosis without coma (7) Gastroparesis due to DM Current Visit: No Status: Chronic - Subjective Interval history: Patient has been hypoglycemic throughout the day required multiple pressures of IV D50. She reports being clammy and shaky, nauseated at times secondary to hypoglycemia. She reports upper abdominal pain. - Constitutional Vitals: Temp Pulse Resp BP Pulse Ox 98.4 F 90 17 109/67 96 09/16/17 15:56 09/16/17 15:56 09/16/17 15:56 09/16/17 15:56 09/16/17 15:56 General appearance: Present: mild distress (Mild distress due to pain, tearful.) , A&O X 3 (overweight), answers questions appropriately - Eye Eye exam: Present: PERRL, conjuntiva pink, sclera anicteric Pupils: Present: PERRL - Respiratory Respiratory exam: Present: CTAB. Absent: accessory muscle use, rales, rhonchi, wheezes - Cardiovascular Cardiovascular exam: Present: RRR, +S1, +S2. Absent: diastolic murmur, gallop, rubs, systolic murmur - GI/Abdominal GI/Abdominal exam: Present: normal bowel sounds, soft, no peritoneal signs. Absent: distended, tenderness Internal Medicine: Result - Labs CBC & Chem 7: 09/16/17 05:57 09/16/17 12:17 Labs: Short CBC 09/16/17 Range/Units 05:57 WBC 4.8 (4.3-11.1) K/mcL Hgb 10.0 L (11.5-15.4) g/dL Hct 29.4 L (35.3-44.9) % Plt Count 199 (140-400) K/mcL BMP 09/16/17 09/16/17 05:57 12:17 Sodium 137 140 Potassium 3.6 2.7 L Chloride 106 110 H Carbon Dioxide 26 26 BUN 8 7 Creatinine 0.73 0.71 Glucose 312 H 118 H Calcium 8.3 L 8.6 Liver Function 09/16/17 Range/Units 05:57 Total Bilirubin 0.4 (0.3-1.0) mg/dL AST 93 H (13-39) Units/L ALT 64 H (7-52) Units/L Alkaline Phosphatase 228 H (34-104) Units/L Albumin 3.0 L (3.5-5.7) g/dL - ABG Interpretation ABG results: ABG ABG pH 7.31 pH Units (7.32-7.45) L 09/13/17 06:01 ABG pCO2 39 mmHg (35-45) 09/13/17 06:01 ABG pO2 106 mmHg (85-104) H 09/13/17 06:01 ABG O2 Saturation 98 % (95-98) 09/13/17 06:01 Consult Discharge Plan - Plan Referrals: Marielena Baltazar CNP [Advanced Practice Nurse] - 09/20/17 2:00 pm Domingo Humphrey DO [Primary Care Provider] - Christ Almeida MD [Partnered Physician] - (Needs follow up in 2-4 weeks after discharge for management of neurogenic bladder.)
[2017-09-16] MEDS: D10% in Water 500 ML IVC SCH (20:00)
[2017-09-17] MEDS: *HR* Morphine Immed Rel 30 MG TABLET PO PRN ×3 (00:51→15:42)
[2017-09-17] MEDS: *HR* Promethazine 25 MG/ML VIAL IVP PRN ×3 (00:51→15:42)
[2017-09-17] MEDS: *HR* LORazepam 1 MG TABLET PO PRN ×2 (02:49→12:09)
[2017-09-17] MEDS: Orphenadrine 100 MG TABLET.ER PO SCH ×2 (03:54→15:40)
[2017-09-17] MEDS: *HR* Enoxaparin 40 MG/0.4 ML SYRINGE SQ SCH (06:48)
[2017-09-17] MEDS: D10% in Water 500 ML IVC SCH (07:40)
[2017-09-17] MEDS: Insulin LISPRO 300 UNITS/3 ML VIAL SQ SCH ×4 (07:53→21:44)
[2017-09-17 08:33] LABS: Hematocrit 31.3 % (35.3-44.9); Hemoglobin 10.6 g/dL (11.5-15.4); Mean Corpuscular HGB Conc 33.9 g/dL (31.6-35.5); Mean Corpuscular Hemoglobin 30.6 pg (28.0-33.3); Mean Corpuscular Volume 90.5 fL (83.0-100.0); Mean Platelet Volume 10.6 fL (9.4-12.4); Platelet Count 197 K/mcL (140-400); Red Blood Count 3.46 M/mcL (3.82-4.97); Red Cell Distribution Width 13.1 % (11.5-14.5)
[2017-09-17 09:34] LABS: Alanine Aminotransferase 133 Units/L (7-52)
[2017-09-17] MEDS: Nicotine 14 MG PATCH.TD24 TD SCH (09:34)
[2017-09-17] MEDS: Gabapentin 400 MG CAPSULE PO SCH ×3 (09:35→21:44)
[2017-09-17] MEDS: Insulin DETEMIR 100 UNIT/ML X5UNITS SQ SCH (09:35)
[2017-09-17] MEDS: Cholecalciferol (D-3) 1,000 UNIT TABLET PO SCH (09:35)
[2017-09-17 09:49] LABS: Albumin 3.2 g/dL (3.5-5.7); Albumin/Globulin Ratio 1.1 (1.1-2.2); Alkaline Phosphatase 235 Units/L (34-104); Aspartate Amino Transferase 130 Units/L (13-39); BUN/Creatinine Ratio 8 (6-26); Bilirubin,Total 0.3 mg/dL (0.3-1.0); Blood Urea Nitrogen 8 mg/dL (6-20); Calcium 8.4 mg/dL (8.6-10.3); Carbon Dioxide 23 mEq/L (23-29); Chloride 103 mEq/L (98-107); Globulin 2.9 g/dL (2.4-3.5); Glucose 498 mg/dL (70-105); Osmolality,Calculated 299 (280-300); Potassium 4.1 mEq/L (3.5-5.1); Sodium 134 mEq/L (136-145); Total Protein 6.1 g/dL (6.4-8.9); eGFR For African Americans > 60 (> 60); eGFR For Non-African Americans > 60 (> 60)
[2017-09-17] MEDS ORDERED: Dextrose Gel 15 GM/37.5 ML TUBE PO PRN ×2 (18:30)
--- NOTE | 2017-09-17 18:35 | Internal Med Progress Note ---
Date of Encounter: 09/17/17 Time of Encounter: 18:33 - Assessment and plan (1) Abdominal pain Current Visit: No Status: Acute Assessment and plan: CT abdomen and pelvis was negative. Lipase during this admission was 5. Follow-up with gastroenterology. EGD showed a nonbleeding gastric ulcer. Colonoscopy with no source of bleeding. Continue with PPI. We will continue to hold IV morphine. She reports anaphylactic reaction to hydrocodone. She reports that oral morphine does not give her relief. I will switch to oral Dilaudid. I suspect medication misuse versus abuse and therefore I would hold off from IV opioids. I will switch to non-opioid options as soon as possible. Unfortunately she cannot take NSAIDS, and she has multiple allergies. I discussed the case with spudder he recommends consideration of refer to [facility] for gastric pacemaker placement since her symptoms are likely related to gastroparesis. I have called the [facility] and she was accepted for transfer however currently she is awaiting a bed. Qualifiers: Abdominal location: epigastric Qualified Code(s): R10.13 - Epigastric pain (2) Borderline personality disorder Current Visit: No Status: Chronic Assessment and plan: Continue chronic meds. (3) Poorly controlled type 1 diabetes mellitus Current Visit: No Status: Acute Assessment and plan: Diabetes education. She has been persistently hypoglycemic yesterday and was started on D10. Lowest glucose yesterday was 27. Currently glucose is in the 500s. I will stop dextrose infusion. Decrease long-acting insulin to 5 units and start blood glucose Accu-Chek and coverage every 4 hours. (4) GI bleed Current Visit: No Status: Acute Assessment and plan: Check hemoglobin in the morning. No evidence of GI bleeding on endoscopic workup. Qualifiers: GI bleed type/associated pathology: gastrointestinal hemorrhage with hematemesis Qualified Code(s): K92.0 - Hematemesis (5) Urinary retention Current Visit: Yes Status: Acute Assessment and plan: She refuses straight catheterization. I discussed the case with urology recommends inserting Valle catheter. She will be discharged with a Valle catheter and follow-up with urology in the office. (6) DKA (diabetic ketoacidoses) Current Visit: Yes Status: Acute Assessment and plan: Resolved Qualifiers: Diabetes mellitus type: type 1 Diabetes mellitus complication detail: without coma Qualified Code(s): E10.10 - Type 1 diabetes mellitus with ketoacidosis without coma (7) Gastroparesis due to DM Current Visit: No Status: Chronic Assessment and plan: Patient reports anaphylactic reaction to erythromycin, therefore all options for medical management of gastroparesis including Reglan and Botox injection have been explored and failed. (8) Left arm swelling Current Visit: Yes Status: Acute Assessment and plan: Her arms or and swelling after an IV infiltrated. On exam there is pitting edema and tenderness with palpation of the forearm and left arm. There are no skin changes, no bruising or bleeding. We will provide cold compresses. Will obtain Doppler ultrasound to rule out DVT. - Subjective Interval history: Patient reports epigastric abdominal pain, crampy and moderate to severe, improves with oral morphine. Reports associated nausea and vomiting. Yesterday she was hypoglycemic and was started on IV D10, currently blood glucose is elevated. Her hypoglycemia symptoms have resolved since yesterday. - Constitutional Vitals: Temp Pulse Resp BP Pulse Ox 98.5 F 95 18 116/73 97 09/17/17 16:05 09/17/17 16:05 09/17/17 16:05 09/17/17 16:05 09/17/17 16:05 General appearance: Present: mild distress (Mild distress due to pain, tearful.) , A&O X 3 (overweight), answers questions appropriately - Respiratory Respiratory exam: Present: CTAB. Absent: accessory muscle use, rales, rhonchi, wheezes - Cardiovascular Cardiovascular exam: Present: RRR, +S1, +S2. Absent: diastolic murmur, gallop, rubs, systolic murmur - GI/Abdominal GI/Abdominal exam: Present: normal bowel sounds, soft, no peritoneal signs. Absent: distended, tenderness Internal Medicine: Result - Labs CBC & Chem 7: 09/17/17 06:50 09/17/17 09:05 Labs: Short CBC 09/17/17 Range/Units 06:50 WBC 4.7 (4.3-11.1) K/mcL Hgb 10.6 L (11.5-15.4) g/dL Hct 31.3 L (35.3-44.9) % Plt Count 197 (140-400) K/mcL BMP 09/17/17 09:05 Sodium 134 L Potassium 4.1 D Chloride 103 Carbon Dioxide 23 BUN 8 Creatinine 0.95 Glucose 498 H Calcium 8.4 L Liver Function 09/17/17 Range/Units 09:05 Total Bilirubin 0.3 (0.3-1.0) mg/dL AST 130 H (13-39) Units/L ALT 133 H (7-52) Units/L Alkaline Phosphatase 235 H (34-104) Units/L Albumin 3.2 L (3.5-5.7) g/dL - ABG Interpretation ABG results: ABG ABG pH 7.31 pH Units (7.32-7.45) L 09/13/17 06:01 ABG pCO2 39 mmHg (35-45) 09/13/17 06:01 ABG pO2 106 mmHg (85-104) H 09/13/17 06:01 ABG O2 Saturation 98 % (95-98) 09/13/17 06:01 Consult Discharge Plan - Plan Referrals: Marielena Baltazar CNP [Advanced Practice Nurse] - 09/20/17 2:00 pm Domingo Humphrey DO [Primary Care Provider] - Christ Almeida MD [Partnered Physician] - (Needs follow up in 2-4 weeks after discharge for management of neurogenic bladder.)
[2017-09-17] MEDS: *HR* HYDROmorphone 4 MG TABLET PO PRN (20:48)
[2017-09-18] MEDS: Insulin LISPRO 300 UNITS/3 ML VIAL SQ SCH ×7 (00:26→20:14)
[2017-09-18] MEDS: *HR* Promethazine 25 MG/ML VIAL IVP PRN ×3 (00:26→17:36)
[2017-09-18] MEDS: *HR* LORazepam 1 MG TABLET PO PRN ×2 (00:26→12:50)
[2017-09-18] MEDS: *HR* HYDROmorphone 4 MG TABLET PO PRN ×5 (01:25→18:53)
[2017-09-18] MEDS: Orphenadrine 100 MG TABLET.ER PO SCH ×2 (04:44→15:53)
[2017-09-18 05:13] LABS: Hematocrit 32.4 % (35.3-44.9); Hemoglobin 10.6 g/dL (11.5-15.4); Mean Corpuscular HGB Conc 32.7 g/dL (31.6-35.5); Mean Corpuscular Hemoglobin 29.9 pg (28.0-33.3); Mean Corpuscular Volume 91.5 fL (83.0-100.0); Mean Platelet Volume 10.1 fL (9.4-12.4); Platelet Count 231 K/mcL (140-400); Red Blood Count 3.54 M/mcL (3.82-4.97)
[2017-09-18 05:20] LABS: Alanine Aminotransferase 102 Units/L (7-52); Albumin 3.3 g/dL (3.5-5.7); Albumin/Globulin Ratio 1.1 (1.1-2.2); Alkaline Phosphatase 211 Units/L (34-104); Aspartate Amino Transferase 54 Units/L (13-39); BUN/Creatinine Ratio 13 (6-26); Bilirubin,Total 0.3 mg/dL (0.3-1.0); Blood Urea Nitrogen 11 mg/dL (6-20); Calcium 8.8 mg/dL (8.6-10.3); Carbon Dioxide 27 mEq/L (23-29); Chloride 105 mEq/L (98-107); Globulin 3.1 g/dL (2.4-3.5); Glucose 210 mg/dL (70-105); Osmolality,Calculated 290 (280-300); Potassium 4.1 mEq/L (3.5-5.1); Sodium 137 mEq/L (136-145); Total Protein 6.4 g/dL (6.4-8.9); eGFR For African Americans > 60 (> 60); eGFR For Non-African Americans > 60 (> 60)
[2017-09-18] MEDS: *HR* Enoxaparin 40 MG/0.4 ML SYRINGE SQ SCH (06:36)
[2017-09-18] MEDS: Cholecalciferol (D-3) 1,000 UNIT TABLET PO SCH ×2 (09:14→10:40)
[2017-09-18] MEDS: Nicotine 14 MG PATCH.TD24 TD SCH (09:14)
[2017-09-18] MEDS: Gabapentin 400 MG CAPSULE PO SCH ×4 (09:14→20:14)
[2017-09-18] MEDS: Insulin DETEMIR 100 UNIT/ML X5UNITS SQ SCH ×2 (09:14→10:40)
--- NOTE | 2017-09-18 18:03 | Internal Med Progress Note ---
Date of Encounter: 09/18/17 Time of Encounter: 11:00 - Assessment and plan (1) Abdominal pain Current Visit: No Status: Acute Assessment and plan: CT abdomen and pelvis was negative. Lipase during this admission was 5. Follow-up with gastroenterology. EGD showed a nonbleeding gastric ulcer. Colonoscopy with no source of bleeding. Continue with PPI. We will continue to hold IV morphine. She reports anaphylactic reaction to hydrocodone. Continue with oral Dilaudid,sedative medication including Dilaudid, lorazepam and Benadryl at least 1 hour apart. She has failed medical management for gastroparesis as she is allergic to azithromycin and Reglan. Currently awaiting bed availability at the [facility]. Qualifiers: Abdominal location: epigastric Qualified Code(s): R10.13 - Epigastric pain (2) Borderline personality disorder Current Visit: No Status: Chronic Assessment and plan: Continue chronic meds. (3) Poorly controlled type 1 diabetes mellitus Current Visit: No Status: Acute Assessment and plan: I switched to blood glucose Accu-Chek and coverage every 4 hours. Continue diabetic diet. Currently blood glucose is better controlled. Hemoglobin A1c is 7.8 (4) GI bleed Current Visit: No Status: Resolved Assessment and plan: Hemoglobin has been stable. No evidence of GI bleeding on endoscopic workup. Qualifiers: GI bleed type/associated pathology: gastrointestinal hemorrhage with hematemesis Qualified Code(s): K92.0 - Hematemesis (5) Urinary retention Current Visit: Yes Status: Acute Assessment and plan: She refuses straight catheterization. I discussed the case with urology recommends inserting Valle catheter. She will be discharged with a Valle catheter and follow-up with urology in the office. (6) DKA (diabetic ketoacidoses) Current Visit: Yes Status: Acute Assessment and plan: Resolved Qualifiers: Diabetes mellitus type: type 1 Diabetes mellitus complication detail: without coma Qualified Code(s): E10.10 - Type 1 diabetes mellitus with ketoacidosis without coma (7) Gastroparesis due to DM Current Visit: No Status: Chronic Assessment and plan: Patient reports anaphylactic reaction to erythromycin, therefore all options for medical management of gastroparesis including Reglan and Botox injection have been explored and failed. (8) Left arm swelling Current Visit: Yes Status: Acute Assessment and plan: Doppler ultrasound done on found no evidence of DVT, presence of superficial venous thrombosis. No need for anticoagulation. Continue with cold compresses for pain. - Subjective Interval history: Nausea has improved since yesterday. She continues to report some vomiting. She has been able to tolerate some oral food. Her hypoglycemia has resolved she remains a brittle diabetic with blood glucose ranging from 27 to over 500 in the last 72 hours. - Constitutional Vitals: Temp Pulse Resp BP Pulse Ox 97.6 F 90 17 132/85 97 09/18/17 16:00 09/18/17 16:00 09/18/17 16:00 09/18/17 16:00 09/18/17 16:00 General appearance: Present: mild distress (Mild distress due to pain, tearful.) , A&O X 3 (overweight), answers questions appropriately - Respiratory Respiratory exam: Present: CTAB. Absent: accessory muscle use, rales, rhonchi, wheezes - Cardiovascular Cardiovascular exam: Present: RRR, +S1, +S2. Absent: diastolic murmur, gallop, rubs, systolic murmur - GI/Abdominal GI/Abdominal exam: Present: normal bowel sounds, soft, no peritoneal signs. Absent: distended, tenderness Internal Medicine: Result - Labs CBC & Chem 7: 09/18/17 04:53 09/18/17 04:53 Labs: Short CBC 09/18/17 Range/Units 04:53 WBC 5.4 (4.3-11.1) K/mcL Hgb 10.6 L (11.5-15.4) g/dL Hct 32.4 L (35.3-44.9) % Plt Count 231 (140-400) K/mcL BMP 09/18/17 04:53 Sodium 137 Potassium 4.1 Chloride 105 Carbon Dioxide 27 BUN 11 Creatinine 0.83 Glucose 210 H Calcium 8.8 Liver Function 09/18/17 Range/Units 04:53 Total Bilirubin 0.3 (0.3-1.0) mg/dL AST 54 H (13-39) Units/L ALT 102 H (7-52) Units/L Alkaline Phosphatase 211 H (34-104) Units/L Albumin 3.3 L (3.5-5.7) g/dL - ABG Interpretation ABG results: ABG ABG pH 7.31 pH Units (7.32-7.45) L 09/13/17 06:01 ABG pCO2 39 mmHg (35-45) 09/13/17 06:01 ABG pO2 106 mmHg (85-104) H 09/13/17 06:01 ABG O2 Saturation 98 % (95-98) 09/13/17 06:01 Consult Discharge Plan - Plan Referrals: Marielena Baltazar CNP [Advanced Practice Nurse] - 09/20/17 2:00 pm Domingo Humphrey DO [Primary Care Provider] - Christ Almeida MD [Partnered Physician] - (Needs follow up in 2-4 weeks after discharge for management of neurogenic bladder.)
[2017-09-18] MEDS: *HR* Dextrose 50 % in Water (Syg) 50 ML SYRINGE IVP PRN (22:34)
[2017-09-19] MEDS: Insulin LISPRO 300 UNITS/3 ML VIAL SQ SCH ×5 (00:29→15:34)
[2017-09-19] MEDS: *HR* HYDROmorphone 4 MG TABLET PO PRN ×5 (00:35→22:19)
[2017-09-19] MEDS: *HR* Promethazine 25 MG/ML VIAL IVP PRN ×4 (01:37→20:56)
[2017-09-19] MEDS: *HR* Dextrose 50 % in Water (Syg) 50 ML SYRINGE IVP PRN ×11 (01:40→20:47)
[2017-09-19] MEDS: Orphenadrine 100 MG TABLET.ER PO SCH ×2 (02:45→14:26)
[2017-09-19] MEDS: *HR* LORazepam 1 MG TABLET PO PRN ×3 (02:45→20:50)
[2017-09-19] MEDS: D5% in Water 1,000 ML IVC PRN ×3 (03:00→22:19)
[2017-09-19] MEDS ORDERED: *HR* Dextrose 50 % in Water (Syg) 50 ML SYRINGE ONE (05:15)
[2017-09-19] MEDS: *HR* Enoxaparin 40 MG/0.4 ML SYRINGE SQ SCH (05:16)
[2017-09-19 05:21] LABS: Hematocrit 29.5 % (35.3-44.9); Hemoglobin 10.1 g/dL (11.5-15.4); Mean Corpuscular HGB Conc 34.2 g/dL (31.6-35.5); Mean Corpuscular Volume 90.5 fL (83.0-100.0); Mean Platelet Volume 9.9 fL (9.4-12.4); Platelet Count 208 K/mcL (140-400); Red Blood Count 3.26 M/mcL (3.82-4.97); Red Cell Distribution Width 12.8 % (11.5-14.5)
[2017-09-19 05:44] LABS: Alanine Aminotransferase 70 Units/L (7-52); Albumin 3.3 g/dL (3.5-5.7); Albumin/Globulin Ratio 1.1 (1.1-2.2); Alkaline Phosphatase 175 Units/L (34-104); Aspartate Amino Transferase 37 Units/L (13-39); BUN/Creatinine Ratio 18 (6-26); Bilirubin,Total 0.3 mg/dL (0.3-1.0); Blood Urea Nitrogen 15 mg/dL (6-20); Calcium 8.6 mg/dL (8.6-10.3); Carbon Dioxide 28 mEq/L (23-29); Chloride 105 mEq/L (98-107); Globulin 2.9 g/dL (2.4-3.5); Glucose 37 mg/dL (70-105); Osmolality,Calculated 289 (280-300); Potassium 3.1 mEq/L (3.5-5.1); Sodium 141 mEq/L (136-145); Total Protein 6.2 g/dL (6.4-8.9); eGFR For African Americans > 60 (> 60); eGFR For Non-African Americans > 60 (> 60)
[2017-09-19] MEDS: Cholecalciferol (D-3) 1,000 UNIT TABLET PO SCH (08:09)
[2017-09-19] MEDS: Gabapentin 400 MG CAPSULE PO SCH ×3 (08:10→20:48)
[2017-09-19] MEDS: Nicotine 14 MG PATCH.TD24 TD SCH (08:11)
[2017-09-19] MEDS: Insulin DETEMIR 100 UNIT/ML X5UNITS SQ SCH (08:13)
--- NOTE | 2017-09-19 12:27 | Internal Med Progress Note ---
Date of Encounter: 09/19/17 Time of Encounter: 12:26 - Assessment and plan (1) Abdominal pain Current Visit: No Status: Acute Assessment and plan: Patient has a bed at the [facility]. Wall transfer her to the [facility] by ambulance for further workup of gastroparesis which contributes significantly to her uncontrolled diabetes, abdominal pain and opioid medication use. CT abdomen and pelvis was negative. Lipase during this admission was 5. Follow-up with gastroenterology. EGD showed a nonbleeding gastric ulcer. Colonoscopy with no source of bleeding. Continue with PPI. We will continue to hold IV morphine. She reports anaphylactic reaction to hydrocodone. Continue with oral Dilaudid,sedative medication including Dilaudid, lorazepam and Benadryl at least 1 hour apart. She has failed medical management for gastroparesis as she is allergic to azithromycin and Reglan. Currently awaiting bed availability at the [facility]. Qualifiers: Abdominal location: epigastric Qualified Code(s): R10.13 - Epigastric pain (2) Borderline personality disorder Current Visit: No Status: Chronic Assessment and plan: Continue chronic meds. (3) Poorly controlled type 1 diabetes mellitus Current Visit: No Status: Acute Assessment and plan: I switched to blood glucose Accu-Chek and coverage every 4 hours. Continue diabetic diet. Currently blood glucose is better controlled. Hemoglobin A1c is 7.8 (4) Urinary retention Current Visit: Yes Status: Acute Assessment and plan: She refuses straight catheterization. I discussed the case with urology recommends inserting Valle catheter. She will be discharged with a Valle catheter and follow-up with urology in the office. (5) DKA (diabetic ketoacidoses) Current Visit: Yes Status: Acute Assessment and plan: Resolved Qualifiers: Diabetes mellitus type: type 1 Diabetes mellitus complication detail: without coma Qualified Code(s): E10.10 - Type 1 diabetes mellitus with ketoacidosis without coma (6) Gastroparesis due to DM Current Visit: No Status: Chronic Assessment and plan: Patient reports anaphylactic reaction to erythromycin, therefore all options for medical management of gastroparesis including Reglan and Botox injection have been explored and failed. (7) Left arm swelling Current Visit: Yes Status: Acute Assessment and plan: Doppler ultrasound done on found no evidence of DVT, presence of superficial venous thrombosis. No need for anticoagulation. Continue with cold compresses for pain. - Subjective Interval history: Nausea has improved since yesterday. She reports vomiting last night. She has been persistently hypoglycemic over the last 18 hours. She continues to report crampy upper abdominal epigastric pain. - Constitutional Vitals: Temp Pulse Resp BP Pulse Ox 97.4 F L 97 16 135/80 97 09/19/17 07:27 09/19/17 07:27 09/19/17 07:27 09/19/17 07:27 09/19/17 07:27 General appearance: Present: mild distress (Mild distress due to pain, tearful.) , A&O X 3 (overweight), answers questions appropriately Internal Medicine: Result - Labs CBC & Chem 7: 09/19/17 05:15 09/19/17 05:15 Labs: Short CBC 09/19/17 Range/Units 05:15 WBC 6.7 (4.3-11.1) K/mcL Hgb 10.1 L (11.5-15.4) g/dL Hct 29.5 L (35.3-44.9) % Plt Count 208 (140-400) K/mcL BMP 09/19/17 05:15 Sodium 141 Potassium 3.1 L Chloride 105 Carbon Dioxide 28 BUN 15 Creatinine 0.82 Glucose 37 L* Calcium 8.6 Liver Function 09/19/17 Range/Units 05:15 Total Bilirubin 0.3 (0.3-1.0) mg/dL AST 37 (13-39) Units/L ALT 70 H (7-52) Units/L Alkaline Phosphatase 175 H (34-104) Units/L Albumin 3.3 L (3.5-5.7) g/dL - ABG Interpretation ABG results: ABG ABG pH 7.31 pH Units (7.32-7.45) L 09/13/17 06:01 ABG pCO2 39 mmHg (35-45) 09/13/17 06:01 ABG pO2 106 mmHg (85-104) H 09/13/17 06:01 ABG O2 Saturation 98 % (95-98) 09/13/17 06:01 Consult Discharge Plan - Plan Referrals: Marielena Baltazar CNP [Advanced Practice Nurse] - 09/20/17 2:00 pm Domingo Humphrey DO [Primary Care Provider] - Christ Almeida MD [Partnered Physician] - (Needs follow up in 2-4 weeks after discharge for management of neurogenic bladder.)
[2017-09-19] MEDS ORDERED: Insulin LISPRO 300 UNITS/3 ML VIAL SQ SCH ×4 (16:45→21:00)
--- NOTE | 2017-09-19 19:07 | Discharge Summary ---
Date of Encounter: 09/19/17 Time of Encounter: 19:05 - Discharge Diagnosis (1) Abdominal pain Priority: Secondary Status: Acute Qualifiers: Abdominal location: epigastric Qualified Code(s): R10.13 - Epigastric pain (2) Borderline personality disorder Priority: Secondary Status: Chronic (3) Poorly controlled type 1 diabetes mellitus Priority: Secondary Status: Acute (4) Urinary retention Priority: Secondary Status: Acute (5) DKA (diabetic ketoacidoses) Priority: Primary Status: Acute Qualifiers: Diabetes mellitus type: type 1 Diabetes mellitus complication detail: without coma Qualified Code(s): E10.10 - Type 1 diabetes mellitus with ketoacidosis without coma (6) Gastroparesis due to DM Priority: Secondary Status: Chronic (7) Left arm swelling Priority: Secondary Status: Acute - Discharge Medications Home Medications: Lisinopril [Zestril] 10 mg PO DAILY 04/17/15 [History] Albuterol Sulfate [Albuterol Inhaler] 2 puff IH Q4HR PRN 06/19/15 [History] LORazepam [Ativan] 2 mg PO TID PRN 06/19/15 [History] Estradiol 2 mg PO DAILY 08/03/16 [History] Esomeprazole Magnesium [Nexium] 40 mg PO BID 08/23/16 [History] Levomefolate/B6/B12/Algal Oil [Metanx Capsule] 1 tab PO BID 07/11/17 [History] Orphenadrine [Norflex] 100 mg PO Q12H 07/13/17 [History] Promethazine [Phenergan] 12.5 mg PO Q8H PRN 07/13/17 [History] Gabapentin [Neurontin] 800 mg PO TID 08/09/17 [History] Quetiapine Fumarate [Seroquel] 25 - 50 mg PO HS 08/09/17 [History] Rosuvastatin [Crestor] 20 mg PO QPM 08/09/17 [History] Ergocalciferol (VITAMIN D2) [Vitamin D] 800 unit PO DAILY 09/06/17 [History] Subcutaneous Insulin Pump [T:Slim] 1 each MC AD 09/06/17 [History] Promethazine [Phenergan] 12.5 mg IVP Q4HR PRN vial 09/19/17 [Rx] Allergies/Adverse Reactions: 3 Allergy/AdvReac Type Severity Reaction Status Date / Time azithromycin Allergy Hives Verified 09/17/17 16:18 Cortisone Allergy Anaphylaxis Verified 07/10/17 21:41 hydrocodone Allergy Anaphylaxis Verified 08/09/17 19:31 ketorolac [From Toradol] Allergy Anaphylaxis Verified 07/10/17 21:41 latex Allergy Hives Verified 07/10/17 21:41 metoclopramide [From Reglan] Allergy Anaphylaxis Verified 07/10/17 21:41 ondansetron Allergy Anaphylaxis Verified 09/13/17 03:12 [From Zofran (as hydrochloride)] tramadol [From Ultram] AdvReac Nausea Verified 07/10/17 21:41 Zolpidem [From Ambien] AdvReac Insomnia Verified 07/10/17 21:41 Procedures/tests Complete & Pending: Procedures Performed prior 72 hours Category Date Time Status Venous Doppler [EV venous imaging UE LT] Stat Y 09/17/17 16:08 Completed Date of admission: 09/13/17 01:51 Primary care physician: Domingo Humphrey DO Consults: 09/13/17 12:58 Consult to Gastroenterology [CONS] Routine Consulting Provider: Gastroenterology [facility] Reason for Consult: abdominal pain/elevated BG Call Completed: Yes 09/16/17 11:38 Consult to Invasive Line Access Team [CONS] Routine Reason for Consult: no iv access Line Type: EPIV - Patient Status Disposition: Transfer Other Condition: Good Functional capacity at discharge: independent ambulation Overall status at discharge: patient is not back to baseline - Discharge Instructions Follow Up With: Marielena Baltazar CNP [Advanced Practice Nurse] - 09/20/17 2:00 pm Domingo Humphrey DO [Primary Care Provider] - Christ Almeida MD [Partnered Physician] - (Needs follow up in 2-4 weeks after discharge for management of neurogenic bladder.) Additional Instructions: You will be transferred by ambulance to the [facility] for further workup and treatment of your uncontrolled diabetes and gastroparesis. - Diet and Activity Activity: increase activity as tolerated Diet: diabetic diet Interval History: The patient was accepted for transfer at the [facility] and will be transferred there tonight by ambulance. Her glucose has been low throughout the day and she had been receiving IV D10 infusion at 75 mL per hour. Her latest glucose is 111. She is asymptomatic. Hospital course: Ms. Gaming is a 37 year old female with past medical history significant for type 1 diabetes mellitus, GERD, HTN, HLD who presented to the ER for evaluation of high blood glucose and nausea/vomiting. Patient reported abdominal pain, intractable nausea and vomiting and unable to eat. When she checked her glucose at night and was above 500 which calmed her to present to the hospital. She had been hospitalized 2 or facility a few days prior to this latest visit and at that time she left against medical advise. She has multiple recent admissions for DKA in our facility. She was diagnosed with gastroparesis and was treated with Reglan and erythromycin however she developed allergies to both. She describes the reaction is anaphylaxis. She was admitted to the medical service and treated with insulin infusion per DKA protocol. DKA has resolved however her blood glucose has been uncontrolled. She became hypoglycemic with a low-dose blood glucose of 27 and required IV dextrose infusion. Currently her blood glucose is 111. She had difficulty keeping a consistent oral intake due to nausea and vomiting. This has been treated with intravenous Phenergan and intravenous morphine which was then switched to oral Dilaudid. She had an EGD which showed nonbleeding gastric ulcers. Pathology report revealed chronic gastritis with foveolar hyperplasia. No evidence of H. pylori. She continued to have nausea vomiting and abdominal pain throughout this hospitalization and GI was consulted and recommended transfer to a tertiary care center with more expertise in treatment of gastroparesis. I have contacted the [facility] who accepted the patient in transfer. Time spent discussing smoking cessation with patient: 3 to 10 minutes - Time Spent with Patient Total time spent providing and/or coordinating discharge services: Greater than 30 minutes (I have spent 40 minutes coronary this discharge.) - Constitutional Vitals: Temp Pulse Resp BP Pulse Ox 97.0 F L 89 16 127/79 98 09/19/17 15:20 09/19/17 15:20 09/19/17 15:20 09/19/17 15:20 09/19/17 15:20 General appearance: Present: A&O X 3 (overweight), no acute distress, answers questions appropriately - Respiratory Respiratory exam: Present: CTAB. Absent: accessory muscle use, rales, rhonchi, wheezes - Cardiovascular Cardiovascular exam: Present: RRR, +S1, +S2. Absent: diastolic murmur, gallop, rubs, systolic murmur
[2017-09-19 22:53] VITALS: BP 126/86
[2017-09-19] MEDS ORDERED: D10% in Water 500 ML IVC ONE (23:41)
== END 2017-09-19 23:30 | disposition other institution (70) | DRG 638 ==
LOC: EMEROO 21:27 → SUATTDRO 09-13 01:51 → 2NNU 09-13 01:51 → 2ANU 09-15 19:54
PROVIDERS: ADMIT Internal Medicine Hematology & Oncology; ATTEND Internal Medicine
PROC: ENDOEBX (2017-09-15 12:00)

== ENCOUNTER 2017-09-22 17:05 | Observation (INO) ==
[2017-09-22] MEDS: 0.9 % Sodium Chloride 1,000 ML IVC SCH ×2 (17:18→20:40)
[2017-09-22] MEDS ORDERED: *HR* Promethazine 25 MG/ML VIAL IVP ONE (17:36)
[2017-09-22 17:53] LABS: VBG HCO3 20 mEq/L (21-27); VBG PCO2 28 mmHg (41-51); VBG PH 7.47 pH Units (7.32-7.42); VBG PO2 188 mmHg (25-50)
--- NOTE | 2017-09-22 17:54 | Emergency Department Note ---
Disposition Clinical Impression: Diabetes mellitus type 1 with complications, Hyperglycemia Disposition: Admitted As Inpatient Condition: Fair Referrals: Domingo Humphrey DO [Primary Care Provider] - Forms: ED Satisfaction Letter, Work/School Release Time of Disposition: 21:41 General Adult HPI - General Chief complaint: ED General Medical Stated complaint: Hyperglycemia Time Seen by Provider: 09/22/17 17:08 Source: patient, EMS Mode of arrival: EMS Limitations: no limitations Nursing Notes Reviewed: Yes Vital Signs Reviewed: Yes - History of Present Illness HPI Narrative: 37-year-old female presents to the emergency department for high blood sugar. Patient is a type I diabetic with an insulin pump to uses NovoLog. She does have continuous of it. She says that she was discharged from the [facility] last night. She was recently transferred there from our hospitalist service as she was going to see a social services assistant up there. Patient has been admitted here multiple times in the last month that she has been here for the last week before she was transferred up to [facility] for this same high blood sugar issues. Patient said today she started feeling nauseous checked her sugar and it was over 600. She called EMS to be transported here. Patient said recently her battery was changed as well as her insulin pump check to be sure his working everything is working properly. Patient said there were no sicknesses leading up to this or the previous event. She was given multiple amps of D50 while at the [facility] as she was hypoglycemic. Patient says she is having mild abdominal pain it is diffuse says it is a 6 out of 10 nonradiating she has not taken anything for the pain. She said that was a couple days ago. Patient otherwise is having no complaints including headaches , blurry vision, neck pain, back pain, chest pain, shortness of breath, changes in bowel movements, pain with urination, pain or tingling going down the arms or legs, changes in weight. Pain Scale: 8 - Related Data Home Medications Medication Instructions Recorded Confirmed Lisinopril [Zestril] 10 mg PO DAILY 04/17/15 09/22/17 Albuterol Sulfate [Albuterol 2 puff IH Q4HR PRN 06/19/15 09/22/17 Inhaler] LORazepam [Ativan] 2 mg PO TID PRN 06/19/15 09/22/17 Estradiol 2 mg PO DAILY 08/03/16 09/22/17 Esomeprazole Magnesium [Nexium] 40 mg PO BID 08/23/16 09/22/17 Levomefolate/B6/B12/Algal Oil 1 tab PO BID 07/11/17 09/22/17 [Metanx Capsule] Orphenadrine [Norflex] 100 mg PO Q12H 07/13/17 09/22/17 Promethazine [Phenergan] 12.5 mg PO Q8H PRN 07/13/17 09/22/17 Gabapentin [Neurontin] 800 mg PO TID 08/09/17 09/22/17 Quetiapine Fumarate [Seroquel] 25 - 50 mg PO HS 08/09/17 09/22/17 Rosuvastatin [Crestor] 20 mg PO QPM 08/09/17 09/22/17 Ergocalciferol (VITAMIN D2) 800 unit PO DAILY 09/06/17 09/22/17 [Vitamin D] Subcutaneous Insulin Pump [T:Slim] 1 each MC AD 09/06/17 09/22/17 Previous Rx's Medication Instructions Recorded Promethazine [Phenergan] 12.5 mg IVP Q4HR PRN vial 09/19/17 Allergies Allergy/AdvReac Type Severity Reaction Status Date / Time azithromycin Allergy Hives Verified 09/17/17 16:18 Cortisone Allergy Anaphylaxis Verified 07/10/17 21:41 hydrocodone Allergy Anaphylaxis Verified 08/09/17 19:31 ketorolac [From Toradol] Allergy Anaphylaxis Verified 07/10/17 21:41 latex Allergy Hives Verified 07/10/17 21:41 metoclopramide [From Reglan] Allergy Anaphylaxis Verified 07/10/17 21:41 ondansetron Allergy Anaphylaxis Verified 09/13/17 03:12 [From Zofran (as hydrochloride)] tramadol [From Ultram] AdvReac Nausea Verified 07/10/17 21:41 Zolpidem [From Ambien] AdvReac Insomnia Verified 07/10/17 21:41 Review of Systems: 10 point review of systems done and negative unless otherwise stated in history of present illness. All systems ED: reviewed and negative except as stated. Review of Systems: As Per HPI Past Medical History - Past Medical History Attestation: Yes The following information was validated with the patient. 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 history: Reports: other - Social History Smoking Status: Former smoker Smokeless Tobacco Status: No Alcohol use: Reports: none Drug use: Reports: none Physical Exam - General Limitations: no limitations General appearance: alert, in no apparent distress - Head Head exam: atraumatic, normocephalic, normal inspection - Eye Eye exam: Present: normal appearance, PERRL, EOMI - ENT ENT exam: normal exam, normal oropharynx, mucous membranes moist - Neck Neck exam: Present: normal inspection, full ROM, trachea midline - Chest Chest inspection: Present: normal inspection, symmetric chest wall rise - Respiratory Respiratory exam: Present: normal lung sounds bilaterally. Absent: respiratory distress, wheezes - Cardiovascular Cardiovascular exam: Present: regular rate, normal rhythm, normal heart sounds - Abdominal Exam Abdominal exam: Present: soft, tenderness. Absent: distention, guarding, rebound, rigidity, heel tap sign, Wiley's sign, Rovsing's sign, tenderness at McBurney's Point Abdominal tenderness: Present: diffuse, mild - Extremities Exam Extremities exam: Present: normal inspection, full ROM. Absent: tenderness, pedal edema - Expanded Lower Extremity Exam Neurovascular/Tendon exam: Present: normal capillary refill. Absent: pulse deficit, motor deficit, sensory deficit, tendon deficit - Back Exam Back exam: Present: normal inspection, full ROM. Absent: tenderness, CVA tenderness (R), CVA tenderness (L) - Neurological Exam Neurological exam: Present: alert, oriented X3 - Skin Skin exam: Present: warm, dry, intact, normal color Course Course Narrative: 37-year-old female presents to the emergency department complaining of high blood sugar. Patient also complaining of abdominal pain. She is nauseous. We will get CT her abdomen and pelvis with contrast. We will get basic labs including CBC, CMP, urinalysis, beta hydroxybutyrate as well as a VBG. We will give patient IV fluids and wait until her blood sugar comes back to see if we need to give her insulin. Patient has removed her insulin pump. Most likely disposition will be admission or transfer to [facility]. Vital Signs Temperature 97.8 F 09/22/17 17:07 Pulse Rate 92 09/22/17 17:07 Respiratory Rate 16 09/22/17 17:07 Blood Pressure 159/89 09/22/17 17:07 O2 Sat by Pulse Oximetry 99 09/22/17 17:07 Temperature 97.8 F 09/22/17 17:07 Pulse Rate 92 09/22/17 17:07 Respiratory Rate 16 09/22/17 17:07 Blood Pressure 159/89 09/22/17 17:07 O2 Sat by Pulse Oximetry 99 09/22/17 17:07 Oxygen Delivery Oxygen Delivery Room Air Medical Decision Making - MDM Narrative Medical decision making narrative: 37-year-old female presented to the emergency department complaining of high blood sugar. She also had abdominal pain CT abdomen and pelvis came back showing no acute abnormalities. Labs did show a hyperglycemia of 650. Did give patient 8 units of insulin based on the 0.1 units per kilo bolus. Patient did not have an anion gap she was spilling ketones and was positive for beta hydroxybutyrate but was not currently in DKA. Patient's blood sugar only went out of 5:15 said due to this we decided to admit for hyperglycemia searching continuing insulin drip. Patient was closely seen for pain medications we offered her gabapentin but she declined having that. We will give her Tylenol but patient have elevated LFTs which is normal for her so we kept from giving that to keep from worsening her hepatic injury. Patient was also given 2 L of IV fluids. Patient was looked up on [facility] and did have multiple red flags. So did not give any opiates. Patient was admitted to Dr. Cheng who agreed to admit the patient to her service. Patient is admitted in stable condition. Abdomen/Pelvis CT 09/22/17 17:32 IMPRESSION: 1. No acute findings identified in the abdomen and pelvis. D/ : / 09/22/2017 20:04:08 Alli Lorenz MD / keaton Interpreting Provider: Alli Lorenz MD - Medical Records Medical records reviewed: Yes I reviewed the patient's medical records. - Lab Data Lab results reviewed: Yes I reviewed the patient's lab results. Result diagrams: 09/22/17 17:39 09/22/17 17:39 Lab Results 09/22/17 09/22/17 09/22/17 Range/Units 17:11 17:12 17:39 WBC 6.7 (4.3-11.1) K/mcL RBC 3.62 L (3.82-4.97) M/mcL Hgb 11.1 L (11.5-15.4) g/dL Hct 32.8 L (35.3-44.9) % MCV 90.6 (83.0-100.0) fL MCH 30.7 (28.0-33.3) pg MCHC 33.8 (31.6-35.5) g/dL RDW 12.9 (11.5-14.5) % Plt Count 226 (140-400) K/mcL MPV 10.2 (9.4-12.4) fL Immature Gran % 0.1 (0-4) % Seg Neutrophils % 81.6 % Lymphocytes % 14.2 % Monocytes % 2.5 % Eosinophils % 1.0 % Basophils % 0.6 % Neutrophils # 5.5 (1.6-8.9) K/mcL Lymphocytes # 1.0 (0.6-4.6) K/mcL Monocytes # 0.2 (0.0-1.3) K/mcL Eosinophils # 0.1 (0.0-0.6) K/mcL Basophils # 0.0 (0.0-0.2) K/mcL VBG pH (7.32-7.42) pH Units VBG pCO2 (41-51) mmHg VBG pO2 (25-50) mmHg VBG HCO3 (21-27) mEq/L Sodium (136-145) mEq/L Potassium (3.5-5.1) mEq/L Chloride (98-107) mEq/L Carbon Dioxide (23-29) mEq/L BUN (6-20) mg/dL Creatinine (0.60-1.20) mg/dL Est GFR ( Amer) (> 60) Est GFR (Non-Af Amer) (> 60) BUN/Creatinine Ratio (6-26) Glucose (70-105) mg/dL POC Glucose > 600 H* > 600 H* (58-89) Calculated Osmolality (280-300) Calcium (8.6-10.3) mg/dL Total Bilirubin (0.3-1.0) mg/dL AST (13-39) Units/L ALT (7-52) Units/L Alkaline Phosphatase (34-104) Units/L Serum Total Protein (6.4-8.9) g/dL Albumin (3.5-5.7) g/dL Globulin (2.4-3.5) g/dL Albumin/Globulin Ratio (1.1-2.2) Beta-Hydroxybutyric Acd (0.02-0.27) mmol/L Urine Color (Yellow) Urine Clarity (Clear) Urine pH (5.0-8.0) pH Units Ur Specific Thayer (1.010-1.025) Urine Protein (Neg-Trace) mg/dL Urine Glucose (UA) (Normal) mg/dL Urine Ketones (Negative) mg/dL Urine Blood (Negative) Urine Nitrite (Negative) Urine Bilirubin (Negative) Urine Urobilinogen (Normal) mg/dL Ur Leukocyte Esterase (Negative) Urine Microscopic RBC (0-3) per hpf Urine Microscopic WBC (0-3) per hpf Ur Squamous Epith Cells (None-Few) per lpf Urine Bacteria (None-Few) per hpf Hyaline Casts (None-Few) per lpf Ur Culture Indicated? (NO) Urine Test (Negative) 09/22/17 09/22/17 09/22/17 Range/Units 17:39 17:43 17:43 WBC (4.3-11.1) K/mcL RBC (3.82-4.97) M/mcL Hgb (11.5-15.4) g/dL Hct (35.3-44.9) % MCV (83.0-100.0) fL MCH (28.0-33.3) pg MCHC (31.6-35.5) g/dL RDW (11.5-14.5) % Plt Count (140-400) K/mcL MPV (9.4-12.4) fL Immature Gran % (0-4) % Seg Neutrophils % % Lymphocytes % % Monocytes % % Eosinophils % % Basophils % % Neutrophils # (1.6-8.9) K/mcL Lymphocytes # (0.6-4.6) K/mcL Monocytes # (0.0-1.3) K/mcL Eosinophils # (0.0-0.6) K/mcL Basophils # (0.0-0.2) K/mcL VBG pH (7.32-7.42) pH Units VBG pCO2 (41-51) mmHg VBG pO2 (25-50) mmHg VBG HCO3 (21-27) mEq/L Sodium 135 L (136-145) mEq/L Potassium 3.8 (3.5-5.1) mEq/L Chloride 104 (98-107) mEq/L Carbon Dioxide 20 L (23-29) mEq/L BUN 18 (6-20) mg/dL Creatinine 0.73 (0.60-1.20) mg/dL Est GFR ( Amer) > 60 (> 60) Est GFR (Non-Af Amer) > 60 (> 60) BUN/Creatinine Ratio 25 (6-26) Glucose 625 H* (70-105) mg/dL POC Glucose (58-89) Calculated Osmolality 311 H (280-300) Calcium 7.6 L (8.6-10.3) mg/dL Total Bilirubin 0.5 (0.3-1.0) mg/dL AST 55 H (13-39) Units/L ALT 158 H (7-52) Units/L Alkaline Phosphatase 193 H (34-104) Units/L Serum Total Protein 5.9 L (6.4-8.9) g/dL Albumin 3.2 L (3.5-5.7) g/dL Globulin 2.7 (2.4-3.5) g/dL Albumin/Globulin Ratio 1.2 (1.1-2.2) Beta-Hydroxybutyric Acd > 2.00 H (0.02-0.27) mmol/L Urine Color Yellow (Yellow) Urine Clarity Clear (Clear) Urine pH 7.0 (5.0-8.0) pH Units Ur Specific Thayer 1.023 (1.010-1.025) Urine Protein Negative (Neg-Trace) mg/dL Urine Glucose (UA) >=1000 H (Normal) mg/dL Urine Ketones 40 H (Negative) mg/dL Urine Blood Trace H (Negative) Urine Nitrite Negative (Negative) Urine Bilirubin Negative (Negative) Urine Urobilinogen Normal (Normal) mg/dL Ur Leukocyte Esterase Negative (Negative) Urine Microscopic RBC 3-5 H (0-3) per hpf Urine Microscopic WBC 0-3 (0-3) per hpf Ur Squamous Epith Cells Many H (None-Few) per lpf Urine Bacteria None Seen (None-Few) per hpf Hyaline Casts None Seen (None-Few) per lpf Ur Culture Indicated? NO (NO) Urine Test Negative (Negative) 09/22/17 Range/Units 17:51 WBC (4.3-11.1) K/mcL RBC (3.82-4.97) M/mcL Hgb (11.5-15.4) g/dL Hct (35.3-44.9) % MCV (83.0-100.0) fL MCH (28.0-33.3) pg MCHC (31.6-35.5) g/dL RDW (11.5-14.5) % Plt Count (140-400) K/mcL MPV (9.4-12.4) fL Immature Gran % (0-4) % Seg Neutrophils % % Lymphocytes % % Monocytes % % Eosinophils % % Basophils % % Neutrophils # (1.6-8.9) K/mcL Lymphocytes # (0.6-4.6) K/mcL Monocytes # (0.0-1.3) K/mcL Eosinophils # (0.0-0.6) K/mcL Basophils # (0.0-0.2) K/mcL VBG pH 7.47 H (7.32-7.42) pH Units VBG pCO2 28 L (41-51) mmHg VBG pO2 188 H (25-50) mmHg VBG HCO3 20 L (21-27) mEq/L Sodium (136-145) mEq/L Potassium (3.5-5.1) mEq/L Chloride (98-107) mEq/L Carbon Dioxide (23-29) mEq/L BUN (6-20) mg/dL Creatinine (0.60-1.20) mg/dL Est GFR ( Amer) (> 60) Est GFR (Non-Af Amer) (> 60) BUN/Creatinine Ratio (6-26) Glucose (70-105) mg/dL POC Glucose (58-89) Calculated Osmolality (280-300) Calcium (8.6-10.3) mg/dL Total Bilirubin (0.3-1.0) mg/dL AST (13-39) Units/L ALT (7-52) Units/L Alkaline Phosphatase (34-104) Units/L Serum Total Protein (6.4-8.9) g/dL Albumin (3.5-5.7) g/dL Globulin (2.4-3.5) g/dL Albumin/Globulin Ratio (1.1-2.2) Beta-Hydroxybutyric Acd (0.02-0.27) mmol/L Urine Color (Yellow) Urine Clarity (Clear) Urine pH (5.0-8.0) pH Units Ur Specific Thayer (1.010-1.025) Urine Protein (Neg-Trace) mg/dL Urine Glucose (UA) (Normal) mg/dL Urine Ketones (Negative) mg/dL Urine Blood (Negative) Urine Nitrite (Negative) Urine Bilirubin (Negative) Urine Urobilinogen (Normal) mg/dL Ur Leukocyte Esterase (Negative) Urine Microscopic RBC (0-3) per hpf Urine Microscopic WBC (0-3) per hpf Ur Squamous Epith Cells (None-Few) per lpf Urine Bacteria (None-Few) per hpf Hyaline Casts (None-Few) per lpf Ur Culture Indicated? (NO) Urine Test (Negative) - Radiology Data Radiology results reviewed: Yes I reviewed the patient's radiology results. Attestation Statement - Attestation Attestation: I examined this patient and my medical decision-making was reviewed with the Resident Physician. I agree with the documented findings, disposition and treatment plan as described except to the extent set forth below. Symptomatic hyperglycemia. Poor glucose control. Offered transfer back to [facility] , patient declined. I do suspect drug-seeking behavior. Patient be admitted for management of hyperglycemia.
[2017-09-22 17:56] LABS: Bilirubin,Urine Negative (Negative); Blood,Urine Trace (Negative); Clarity,Urine Clear (Clear); Color,Urine Yellow (Yellow); Glucose,Urine (UA) >=1000 mg/dL (Normal); Ketones,Urine 40 mg/dL (Negative); Leukocyte Esterase,Urine Negative (Negative); Nitrite,Urine Negative (Negative); Protein,Urine Negative (Neg-Trace); Specific Gravity,Urine 1.023 (1.010-1.025); Urobilinogen,Urine Normal (Normal)
[2017-09-22 17:58] LABS: Bacteria,Urine None Seen per hpf (None-Few); Hyaline Casts,Urine None Seen per lpf (None-Few); Squamous Epithelial Cell,Urine Many per lpf (None-Few); WBC,Urine 0-3 per hpf (0-3)
[2017-09-22 18:07] LABS: Basophils % 0.6 %; Eosinophils # 0.1 K/mcL (0.0-0.6); Hematocrit 32.8 % (35.3-44.9); Hemoglobin 11.1 g/dL (11.5-15.4); Immature Granulocytes % 0.1 % (0-4); Lymphocytes % 14.2 %; Mean Corpuscular HGB Conc 33.8 g/dL (31.6-35.5); Mean Corpuscular Hemoglobin 30.7 pg (28.0-33.3); Mean Corpuscular Volume 90.6 fL (83.0-100.0); Mean Platelet Volume 10.2 fL (9.4-12.4); Monocytes # 0.2 K/mcL (0.0-1.3); Monocytes % 2.5 %; Neutrophils # 5.5 K/mcL (1.6-8.9); Platelet Count 226 K/mcL (140-400); Red Blood Count 3.62 M/mcL (3.82-4.97); Red Cell Distribution Width 12.9 % (11.5-14.5); Segmented Neutrophils % 81.6 %
[2017-09-22] MEDS: Acetaminophen IV 1,000 MG/100 ML INFUS..BTL IVPB ONE ×2 (18:51→20:41)
[2017-09-22 19:07] LABS: Albumin 3.2 g/dL (3.5-5.7); Bilirubin,Total 0.5 mg/dL (0.3-1.0); Calcium 7.6 mg/dL (8.6-10.3); Carbon Dioxide 20 mEq/L (23-29); Chloride 104 mEq/L (98-107); Potassium 3.8 mEq/L (3.5-5.1); Sodium 135 mEq/L (136-145)
[2017-09-22 19:16] LABS: Alanine Aminotransferase 158 Units/L (7-52); Albumin/Globulin Ratio 1.2 (1.1-2.2); Alkaline Phosphatase 193 Units/L (34-104); Aspartate Amino Transferase 55 Units/L (13-39); BUN/Creatinine Ratio 25 (6-26); Blood Urea Nitrogen 18 mg/dL (6-20); Globulin 2.7 g/dL (2.4-3.5); Glucose 625 mg/dL (70-105); Osmolality,Calculated 311 (280-300); Total Protein 5.9 g/dL (6.4-8.9); eGFR For African Americans > 60 (> 60); eGFR For Non-African Americans > 60 (> 60)
[2017-09-22 19:18] LABS: Beta-Hydroxybutyric Acid > 2.00 mmol/L (0.02-0.27)
[2017-09-22] MEDS ORDERED: Insulin Human Regular 8 UNIT in 0.9 % Sodium Chloride 10 ML IV ONE (19:21)
[2017-09-22] MEDS: Gabapentin 300 MG CAPSULE PO ONE ×2 (20:25→20:40)
[2017-09-22] MEDS ORDERED: 0.9 % Sodium Chloride 1,000 ML IVC ONE (20:37)
[2017-09-22] MEDS ORDERED: Insulin Regular, Human 100 UNIT/ML IV ONE (21:58)
[2017-09-22] MEDS ORDERED: *HR* HYDROmorphone (PF) 1 MG/ML SYRINGE IVP ONE (21:59)
[2017-09-22] MEDS ORDERED: *HR* Dextrose 50 % in Water (Syg) 50 ML SYRINGE IVP PRN (22:00)
[2017-09-22] MEDS ORDERED: Dextrose Gel 15 GM/37.5 ML TUBE PO PRN ×2 (22:00)
[2017-09-22] MEDS ORDERED: D5% in Water 1,000 ML IVC PRN (22:00)
[2017-09-22] MEDS ORDERED: Naloxone 0.4 MG/ML INJ IVP PRN (22:01)
--- NOTE | 2017-09-22 22:30 | Internal Med History&Physical ---
<Stephan Flowers - Last Filed: 09/22/17 22:25> Date of Encounter: 09/22/17 Time of Encounter: 22:25 Assessment and Plan (1) Type 1 diabetes mellitus with hyperglycemia, with long-term current use of insulin Current visit: Yes Status: Acute Patient presents today with diffuse abdominal pain and hyperglycemia. Initial serum glucose 625, bicarb 28, anion gap acidosis, but without respiratory acidosis with only trace ketones Does not appear to be DKA but rather hyperglycemia d/t poorly controlled DM I with mild HHS; improving and responded to initial dose of IV insulin Will continue to monitor; consider IV insulin gtt if gap increases PLAN: -NPO apart from meds -Given additional 6 units IV push and swollen now -We will start high sliding-scale insulin coverage every 6 hours -q1hr glucose check x4 then q6hr since she received an additional IV insulin dose given her recent admission for profound hypoglycemia -O2 to keep SpO2 >92% -I/O monitoring -CBCD, BMP in AM (2) Gastroparesis Current visit: Yes Status: Chronic Associated with uncontrolled type 1 diabetes Presents today with diffuse abdominal pain of unknown etiology Condition reporting nausea CT of abdomen and pelvis unremarkable I suspect her pain may be due to gastroparesis -1 mg Dilaudid IV push 1 dose -Phenergan 12.5 mg IV push every 6 as needed for nausea -Remain nothing by mouth (3) GERD (gastroesophageal reflux disease) Current visit: Yes Status: Chronic Continue esomeprazole Qualifiers: Esophagitis presence: esophagitis presence not specified Qualified Code(s) : K21.9 - Gastro-esophageal reflux disease without esophagitis (4) HLD (hyperlipidemia) Current visit: Yes Status: Chronic Continue Crestor Qualifiers: Hyperlipidemia type: pure hypercholesterolemia Qualified Code(s): E78.00 - Pure hypercholesterolemia, unspecified; E78.0 - Pure hypercholesterolemia (5) HTN (hypertension) Current visit: Yes Status: Chronic Stable, continue lisinopril Qualifiers: Hypertension type: essential hypertension Qualified Code(s): I10 - Essential (primary) hypertension Internal Medicine - H&P: HPI Chief complaint: Abdominal pain, hyperglycemia Admitted From: Home Plans for Post Hospital Care: Home History of present illness: Ms. Gaming is a 37 year old female with a PMH of asthma, diabetes, GERD, hyperlipidemia, and hypertension. She is a type I diabetic and normally wears an insulin pump. She reports that she has been in the [facility] due to profound hypoglycemia requiring D10 drip to maintain blood glucose greater than 100. Also, she reports she was going up there to see a special education assistant due to continued abdominal pain. She reports that she was discharged last night with a blood glucose of approximately 500 and sent home until 20 insulin pump. She reports she woke up this morning with blood glucose was unmeasurable per her device. She reports that she was wearing her insulin pump at this time and that it was not helping. She is continuing to report mild diffuse abdominal pain which has been ongoing for multiple weeks. Additionally, she c/o nausea and reports that only morphine or Dilaudid can help with the pain that she can only take promethazine for the nausea as she is allergic to all other antiemetics. Otherwise patient is denying any additional complaints including headache, blurred vision, chest pain, shortness of breath, change in bowel patterns, dysuria or fevers or chills. Past Med Surg Social Fam HX - Past Medical History Medical history: asthma, diabetes, GERD, hyperlipidemia, hypertension, other Psychiatric history: anxiety, depression, panic disorder - Past Surgical History Surgical History: appendectomy, cholecystectomy, hysterectomy, knee replacement , other - Social History Smoking Status: Former smoker Smokeless Tobacco Status: No Alcohol use: none Drug use: none - Family History Mother Family Member Ethnicity: Non- Living Status: Still Living Hx Family Cardiac Disorders: Yes (HTN, HLD) Hx Family Respiratory Disorders: Yes (Asthma) Father Family Member Ethnicity: Non- Living Status: Still Living Hx Family Cardiac Disorders: Yes (HTN, HLD) Hx Family Respiratory Disorders: Yes Hx Family GI Disorders: Yes (cirrhosis) Hx Family Endocrine Disorder: Yes (Cirrhosis) Hx Family Autoimmune Disorders: Yes (Alkylosing Spondylitis) Brother Family Member Ethnicity: Non- Living Status: Still Living Hx Family Endocrine Disorder: Yes (Pancreatitis, Cirrhosis) Sister Family Member Ethnicity: Non- Living Status: Still Living Grandfather Family Member Ethnicity: Non- Living Status: Hx Family Cardiac Disorders: Yes (PR, Stroke) Hx Family Endocrine Disorder: Yes (DM) Internal Medicine - H&P: Meds Lisinopril [Zestril] 10 mg PO DAILY 04/17/15 [History] Albuterol Sulfate [Albuterol Inhaler] 2 puff IH Q4HR PRN 06/19/15 [History] LORazepam [Ativan] 2 mg PO TID PRN 06/19/15 [History] Estradiol 2 mg PO DAILY 08/03/16 [History] Esomeprazole Magnesium [Nexium] 40 mg PO BID 08/23/16 [History] Levomefolate/B6/B12/Algal Oil [Metanx Capsule] 1 tab PO BID 07/11/17 [History] Orphenadrine [Norflex] 100 mg PO Q12H 07/13/17 [History] Promethazine [Phenergan] 12.5 mg PO Q8H PRN 07/13/17 [History] Gabapentin [Neurontin] 800 mg PO TID 08/09/17 [History] Quetiapine Fumarate [Seroquel] 25 - 50 mg PO HS 08/09/17 [History] Rosuvastatin [Crestor] 20 mg PO QPM 08/09/17 [History] Ergocalciferol (VITAMIN D2) [Vitamin D] 800 unit PO DAILY 09/06/17 [History] Subcutaneous Insulin Pump [T:Slim] 1 each MC AD 09/06/17 [History] Promethazine [Phenergan] 12.5 mg IVP Q4HR PRN vial 09/19/17 [Rx] 3 Allergy/AdvReac Type Severity Reaction Status Date / Time azithromycin Allergy Hives Verified 09/17/17 16:18 Cortisone Allergy Anaphylaxis Verified 07/10/17 21:41 hydrocodone Allergy Anaphylaxis Verified 08/09/17 19:31 ketorolac [From Toradol] Allergy Anaphylaxis Verified 07/10/17 21:41 latex Allergy Hives Verified 07/10/17 21:41 metoclopramide [From Reglan] Allergy Anaphylaxis Verified 07/10/17 21:41 ondansetron Allergy Anaphylaxis Verified 09/13/17 03:12 [From Zofran (as hydrochloride)] tramadol [From Ultram] AdvReac Nausea Verified 07/10/17 21:41 Zolpidem [From Ambien] AdvReac Insomnia Verified 07/10/17 21:41 All Systems PM: A 10-system review of systems was performed and is negative for pertinent findings except as documented above in the HPI. - Constitutional Constitutional: no chills, no fever(s), no night sweats - EENT Eyes: no change in vision, no discharge, no pain, no photophobia Ears: no ear discharge, no ear pain, no tinnitus Nose, mouth and throat: no dysphagia, no nasal discharge, no neck pain, no sore throat - Cardiovascular Cardiovascular ROS IM: no chest pain, no diaphoresis, no dyspnea, no lightheadedness, no palpitations, no syncope - Respiratory Respiratory: no cough, no dyspnea, no wheezing, no excessive phlegm production - Gastrointestinal Gastrointestinal: abdominal pain, nausea, no diarrhea, no early satiety, no hematemesis, no hematochezia, no melena, no vomiting - Genitourinary Genitourinary: no change in urinary stream, no dysuria, no flank pain, no hematuria - Musculoskeletal Musculoskeletal ROS IM: no numbness, no tingling - Integumentary Integumentary IM: no rash, no unusual bruising - Neurological Neurological ROS: no confusion, no convulsions, no focal weakness, no numbness, no tingling, no tremor(s) - Hematologic/Lymphatic Hematologic/Lymphatic: no easy bruising - Constitutional Vitals: Temp Pulse Resp BP Pulse Ox 97.8 F 92 16 159/89 99 09/22/17 17:07 09/22/17 17:07 09/22/17 17:07 09/22/17 17:07 09/22/17 17:07 General appearance: Present: cooperative, A&O X 3, no acute distress, answers questions appropriately - Head Head exam: Present: atraumatic, normocephalic - Eye Eye exam: Present: PERRL, conjuntiva pink, sclera anicteric Pupils: Present: PERRL - Neck Neck exam general surgery: Present: supple, trachea midline. Absent: lymphadenopathy - Respiratory Respiratory exam: Present: CTAB. Absent: accessory muscle use, rales, rhonchi, wheezes - Cardiovascular Cardiovascular exam: Present: RRR, +S1, +S2. Absent: diastolic murmur, gallop, rubs, systolic murmur - GI/Abdominal GI/Abdominal exam: Present: normal bowel sounds, soft, no peritoneal signs. Absent: distended, tenderness - Extremities Exam Extremities exam: Present: warm, radial pulses palpable and symmetrical. Absent : calf tenderness, cyanotic, pedal edema - Neurological Exam Neurological exam: Present: CN II-XII intact, oriented X3, no focal deficits. Absent: pronater drift, facial droop, speech deficit - Skin Skin exam: Present: dry, intact Internal Med - H&P Results - Labs CBC & Chem 7: 09/22/17 17:39 09/22/17 17:39 Labs: Short CBC 09/22/17 Range/Units 17:39 WBC 6.7 (4.3-11.1) K/mcL Hgb 11.1 L (11.5-15.4) g/dL Hct 32.8 L (35.3-44.9) % Plt Count 226 (140-400) K/mcL Neutrophils # 5.5 (1.6-8.9) K/mcL BMP 09/22/17 17:39 Sodium 135 L Potassium 3.8 Chloride 104 Carbon Dioxide 20 L BUN 18 Creatinine 0.73 Glucose 625 H* Calcium 7.6 L Liver Function 09/22/17 Range/Units 17:39 Total Bilirubin 0.5 (0.3-1.0) mg/dL AST 55 H (13-39) Units/L ALT 158 H (7-52) Units/L Alkaline Phosphatase 193 H (34-104) Units/L Albumin 3.2 L (3.5-5.7) g/dL Urine 09/22/17 Range/Units 17:43 Urine Color Yellow (Yellow) Urine Clarity Clear (Clear) Urine pH 7.0 (5.0-8.0) pH Units Ur Specific [place] 1.023 (1.010-1.025) Urine Protein Negative (Neg-Trace) mg/dL Urine Glucose (UA) >=1000 H (Normal) mg/dL - ABG Interpretation ABG results: 09/22/17 17:51 VBG pH 7.47 H VBG pCO2 28 L VBG pO2 188 H VBG HCO3 20 L - Impressions ITS Impressions Abdomen/Pelvis CT 09/22/17 17:32 IMPRESSION: 1. No acute findings identified in the abdomen and pelvis. D/ / 09/22/2017 20:04:08 Alli Lorenz MD / keaton Interpreting Provider: Alli Lorenz MD <Rosmery Gunter - Last Filed: 09/22/17 23:13> Date of Encounter: 09/22/17 Time of Encounter: 22:25 Internal Medicine - H&P: HPI History of present illness: Ms. Gaming is a 37 year old female All Systems PM: A 10-system review of systems was performed and is negative for pertinent findings except as documented above in the HPI. - Constitutional Vitals: Temp Pulse Resp BP Pulse Ox 97.8 F 92 16 159/89 99 09/22/17 17:07 09/22/17 17:07 09/22/17 17:07 09/22/17 17:07 09/22/17 17:07 Internal Med - H&P Results - Labs CBC & Chem 7: 09/22/17 17:39 09/22/17 17:39 Labs: Short CBC 09/22/17 Range/Units 17:39 WBC 6.7 (4.3-11.1) K/mcL Hgb 11.1 L (11.5-15.4) g/dL Hct 32.8 L (35.3-44.9) % Plt Count 226 (140-400) K/mcL Neutrophils # 5.5 (1.6-8.9) K/mcL BMP 09/22/17 17:39 Sodium 135 L Potassium 3.8 Chloride 104 Carbon Dioxide 20 L BUN 18 Creatinine 0.73 Glucose 625 H* Calcium 7.6 L Liver Function 09/22/17 Range/Units 17:39 Total Bilirubin 0.5 (0.3-1.0) mg/dL AST 55 H (13-39) Units/L ALT 158 H (7-52) Units/L Alkaline Phosphatase 193 H (34-104) Units/L Albumin 3.2 L (3.5-5.7) g/dL Urine 09/22/17 Range/Units 17:43 Urine Color Yellow (Yellow) Urine Clarity Clear (Clear) Urine pH 7.0 (5.0-8.0) pH Units Ur Specific [place] 1.023 (1.010-1.025) Urine Protein Negative (Neg-Trace) mg/dL Urine Glucose (UA) >=1000 H (Normal) mg/dL - ABG Interpretation ABG results: 09/22/17 17:51 VBG pH 7.47 H VBG pCO2 28 L VBG pO2 188 H VBG HCO3 20 L - Impressions ITS Impressions Abdomen/Pelvis CT 09/22/17 17:32 IMPRESSION: 1. No acute findings identified in the abdomen and pelvis. D/ / 09/22/2017 20:04:08 Alli Lorenz MD / keaton Interpreting Provider: Alli Lorenz MD - Attending Attestation I examined this patient and my medical decision-making was reviewed with the Nurse Practitioner, Stephan Flowers. I agree with the documented findings, disposition and treatment plan as described except to the extent set forth below. 37-year-old female patient with poorly controlled diabetes mellitus presented with complaints of hyperglycemia and abdominal pain. She had just been discharged from [facility] after she was hospitalized day for similar complaints. She had been transferred there from here with episodes of hypoglycemia and abdominal pain. Blood sugars had improved and she was discharged and advised to follow-up with gastroenterology. She continues to have nausea and vomiting and is requesting Phenergan. She is also requesting intravenous pain medications at this time. She reports allergy to Reglan, erythromycin and Zofran. In the ER, she underwent a CT scan of the abdomen and pelvis which did not show any acute process. Labs initially showed a blood sugar level of greater than 600. She has a mild increase anion gap but is not acidotic or VBG. On examination, she has mild epigastric tenderness. Heart sounds are normal. Breath sounds are normal. Hyperglycemia with mild HHS without coma: We will treat with insulin subcutaneously. Monitor blood sugars closely. Keep nothing by mouth. She has responded well to bolus of IV insulin that she received in the ER. As long as blood sugars continued to trend down, will continue managing with subcutaneous insulin. If blood sugars remain elevated, she will need intravenous insulin drip. Monitor basic panel. IV hydration. Abdominal pain with nausea and vomiting: Likely related to diabetic gastroparesis. Will treat symptomatically. Patient listed as allergic to Reglan and Zofran. She also reports not tolerating erythromycin and is requesting Phenergan. We will use Phenergan as needed for symptom control. Hyperlipidemia: Continue Crestor. Elevated liver enzymes: Patient has had elevations in her liver enzymes. She had elevations in her liver enzymes given during her last hospitalization. We will get a liver ultrasound and also check for hepatitis viral markers.
[2017-09-23] MEDS: *HR* Promethazine 25 MG/ML VIAL IVP PRN ×3 (00:43→14:02)
[2017-09-23] MEDS: 0.9 % Sodium Chloride 1,000 ML IVC SCH ×4 (00:44→16:07)
[2017-09-23] MEDS: *HR* LORazepam 1 MG TABLET PO PRN ×2 (01:01→14:02)
[2017-09-23 05:00] LABS: Hematocrit 27.7 % (35.3-44.9); Hemoglobin 9.6 g/dL (11.5-15.4); Mean Corpuscular HGB Conc 34.7 g/dL (31.6-35.5); Mean Corpuscular Hemoglobin 30.7 pg (28.0-33.3); Mean Corpuscular Volume 88.5 fL (83.0-100.0); Mean Platelet Volume 10.4 fL (9.4-12.4); Platelet Count 236 K/mcL (140-400); Red Blood Count 3.13 M/mcL (3.82-4.97)
[2017-09-23] MEDS ORDERED: Insulin DETEMIR 100 UNIT/ML X5UNITS SQ SCH ×2 (05:38→21:00)
[2017-09-23] MEDS: Insulin LISPRO 300 UNITS/3 ML VIAL SQ SCH ×4 (05:47→15:38)
[2017-09-23 05:58] LABS: Hemoglobin A1C 7.6 %
[2017-09-23 06:23] LABS: Hepatitis A Antibody IgM Nonreactive (Nonreactive); Hepatitis B Core IgM Nonreactive (Nonreactive); Hepatitis B Surface Antigen Nonreactive (Nonreactive); Hepatitis C Virus Antibody Nonreactive (Nonreactive)
[2017-09-23 06:50] LABS: BUN/Creatinine Ratio 22 (6-26); Blood Urea Nitrogen 19 mg/dL (6-20); Carbon Dioxide 18 mEq/L (23-29); Chloride 102 mEq/L (98-107); Glucose 492 mg/dL (70-105); Osmolality,Calculated 300 (280-300); Potassium 4.5 mEq/L (3.5-5.1); Sodium 133 mEq/L (136-145); eGFR For African Americans > 60 (> 60); eGFR For Non-African Americans > 60 (> 60)
[2017-09-23] MEDS ORDERED: Insulin Human Regular 100 UNIT in 0.9 % Sodium Chloride 100 ML IVC SCH (07:15)
[2017-09-23] MEDS ORDERED: *HR* HYDROmorphone (PF) 1 MG/ML SYRINGE IVP ONE (07:17)
[2017-09-23] MEDS: Gabapentin 400 MG CAPSULE PO SCH ×2 (08:35→14:02)
[2017-09-23] MEDS ORDERED: Cholecalciferol (D-3) 1,000 UNIT TABLET PO SCH (09:00)
[2017-09-23] MEDS ORDERED: *HR* OxyCODONE Immed Rel 5 MG TABLET PO PRN (14:21)
--- NOTE | 2017-09-23 14:27 | Internal Med Progress Note ---
Date of Encounter: 09/23/17 Time of Encounter: 14:23 - Assessment and plan (1) Hyperglycemic crisis in diabetes mellitus Current Visit: Yes Status: Acute Assessment and plan: Pt does ahve very non compliance history multiple hospitalizations here counseled the pt about compliance issues and barriers for her care will talk to her family too Since pt is tolerating PO intake.. will cont ISS and switched to ACHS Cont Levemir (2) Gastroparesis due to DM Current Visit: No Status: Chronic Assessment and plan: cont Zomargarita Tried to educate the pt to avoid narcotics due to her gatropareiss however pt wanted to get narcotics for pain relieve will obtain medical records from [facility] (3) Poorly controlled type 1 diabetes mellitus Current Visit: Yes Status: Acute (4) HTN (hypertension) Current Visit: Yes Status: Chronic Assessment and plan: resumed home meds Qualifiers: Hypertension type: essential hypertension Qualified Code(s): I10 - Essential (primary) hypertension - Subjective Interval history: Ms. Gaming is a 37 year old female with a PMH of asthma, diabetes, GERD, hyperlipidemia, hypertension, drug seeking behavior for narcotics, who has multiple hospitlaizations here for DKA and Gastroparesis, recently transferred to [facility] on 09/19/17 now she presented to our ER with intractable N/ V and Severe hyperglycemia. Pt was required insulin gtt initially. Now she is tolerating PO intake ok and on ISS. Pt did mention that she was at [facility] for 1 days, they recommended her to f/u with GI as an out pt. - Constitutional Vitals: Temp Pulse Resp BP Pulse Ox 97.6 F 71 18 106/52 98 09/23/17 10:32 09/23/17 10:32 09/23/17 10:32 09/23/17 10:32 09/23/17 10:32 General appearance: Present: cooperative, A&O X 3, no acute distress, answers questions appropriately - Head Head exam: Present: atraumatic, normal inspection - Neck Neck exam general surgery: Present: supple - Respiratory Respiratory exam: Present: decreased breath sounds. Absent: rales, respiratory distress, rhonchi, wheezes - Cardiovascular Cardiovascular exam: Present: RRR, +S1, +S2. Absent: tachycardia - GI/Abdominal GI/Abdominal exam: Present: normal bowel sounds, soft. Absent: rebound, rigid, tenderness - Extremities Exam Extremities exam: Absent: calf tenderness, pedal edema, tenderness - Back Exam Back exam: Absent: CVA tenderness (L), CVA tenderness (R) - Psychiatric Psychiatric exam: Present: normal affect, normal mood Internal Medicine: Result - Labs CBC & Chem 7: 09/23/17 03:19 09/23/17 03:19 Labs: Short CBC 09/23/17 Range/Units 03:19 WBC 5.8 (4.3-11.1) K/mcL Hgb 9.6 L D (11.5-15.4) g/dL Hct 27.7 L (35.3-44.9) % Plt Count 236 (140-400) K/mcL BMP 09/23/17 03:19 Sodium 133 L Potassium 4.5 Chloride 102 Carbon Dioxide 18 L BUN 19 Creatinine 0.86 Glucose 492 H Calcium 8.0 L Consult Discharge Plan - Plan Referrals: Domingo Humphrey DO [Primary Care Provider] -
[2017-09-23 15:12] VITALS: BP 143/80
--- NOTE | 2017-09-23 18:41 | Discharge Summary ---
Date of Encounter: 09/23/17 Time of Encounter: 18:39 - Discharge Diagnosis (1) Hyperglycemic crisis in diabetes mellitus Priority: Primary Status: Acute (2) Gastroparesis due to DM Priority: Primary Status: Chronic (3) Poorly controlled type 1 diabetes mellitus Priority: Secondary Status: Acute (4) HTN (hypertension) Priority: Secondary Status: Chronic Qualifiers: Hypertension type: essential hypertension Qualified Code(s): I10 - Essential (primary) hypertension - Discharge Medications Home Medications: Lisinopril [Zestril] 10 mg PO DAILY 04/17/15 [History] Albuterol Sulfate [Albuterol Inhaler] 2 puff IH Q4HR PRN 06/19/15 [History] LORazepam [Ativan] 2 mg PO TID PRN 06/19/15 [History] Estradiol 2 mg PO DAILY 08/03/16 [History] Esomeprazole Magnesium [Nexium] 40 mg PO BID 08/23/16 [History] Levomefolate/B6/B12/Algal Oil [Metanx Capsule] 1 tab PO BID 07/11/17 [History] Orphenadrine [Norflex] 100 mg PO Q12H 07/13/17 [History] Promethazine [Phenergan] 12.5 mg PO Q8H PRN 07/13/17 [History] Gabapentin [Neurontin] 800 mg PO TID 08/09/17 [History] Quetiapine Fumarate [Seroquel] 25 - 50 mg PO HS 08/09/17 [History] Rosuvastatin [Crestor] 20 mg PO QPM 08/09/17 [History] Ergocalciferol (VITAMIN D2) [Vitamin D] 800 unit PO DAILY 09/06/17 [History] Subcutaneous Insulin Pump [T:Slim] 1 each MC AD 09/06/17 [History] Promethazine [Phenergan] 12.5 mg IVP Q4HR PRN vial 09/19/17 [Rx] Allergies/Adverse Reactions: 3 Allergy/AdvReac Type Severity Reaction Status Date / Time azithromycin Allergy Hives Verified 09/17/17 16:18 Cortisone Allergy Anaphylaxis Verified 07/10/17 21:41 hydrocodone Allergy Anaphylaxis Verified 08/09/17 19:31 ketorolac [From Toradol] Allergy Anaphylaxis Verified 07/10/17 21:41 latex Allergy Hives Verified 07/10/17 21:41 metoclopramide [From Reglan] Allergy Anaphylaxis Verified 07/10/17 21:41 ondansetron Allergy Anaphylaxis Verified 09/13/17 03:12 [From Zofran (as hydrochloride)] tramadol [From Ultram] AdvReac Nausea Verified 07/10/17 21:41 Zolpidem [From Ambien] AdvReac Insomnia Verified 07/10/17 21:41 Date of admission: 09/22/17 23:31 Primary care physician: Domingo Humphrey DO - Patient Status Disposition: Left Against Medical Advice Condition: Fair - Discharge Instructions Follow Up With: Domingo Humphrey DO [Primary Care Provider] - Hospital course: Ms. Gaming is a 37 year old female with a PMH of asthma, diabetes, GERD, hyperlipidemia, hypertension, drug seeking behavior for narcotics, who has multiple hospitlaizations here for DKA and Gastroparesis, recently transferred to [facility] on 09/19/17 now she presented to our ER with intractable N/ V and Severe hyperglycemia. Pt was required insulin gtt initially. Now she is tolerating PO intake ok and on ISS. Pt did mention that she was at [facility] for 1 day, they recommended her to f/u with GI as an out pt. I tried to get record from [facility]. Pt decided to leave AMA since she is not getting IV pain medication along with IV phenergan. I did examine the pt in the afternoon, however when she left AMA in the evening, she did not wait until I go and talk to her. - Time Spent with Patient Total time spent providing and/or coordinating discharge services: - Constitutional Vitals: Temp Pulse Resp BP Pulse Ox 98.1 F 81 16 143/80 99 09/23/17 15:06 09/23/17 15:06 09/23/17 15:06 09/23/17 15:06 09/23/17 15:06 General appearance: Present: cooperative, A&O X 3, no acute distress, answers questions appropriately
== END 2017-09-23 17:05 | disposition left against medical advice (07) ==
LOC: 3ANU 17:05 → EMEROO 17:05 → 3ANU 09-23 00:05
PROVIDERS: ADMIT Nurse Practitioner; ATTEND Internal Medicine

== ENCOUNTER 2018-01-26 09:39 | Inpatient (IN) ==
[2018-01-26] MEDS ORDERED: *HR* FentaNYL (PF) 100 MCG/2 ML VIAL IVP ONE ×2 (10:14→14:12)
[2018-01-26 10:38] LABS: Bilirubin,Urine Negative (Negative); Blood,Urine Trace (Negative); Glucose,Urine (UA) >=1000 mg/dL (Normal); Ketones,Urine Negative (Negative); Leukocyte Esterase,Urine Negative (Negative); Nitrite,Urine Positive (Negative); Protein,Urine Negative (Neg-Trace); Specific Gravity,Urine 1.025 (1.010-1.025); Urobilinogen,Urine Normal (Normal)
[2018-01-26 10:41] LABS: Bacteria,Urine Moderate per hpf (None-Few); Hyaline Casts,Urine None Seen per lpf (None-Few); Squamous Epithelial Cell,Urine Many per lpf (None-Few)
--- NOTE | 2018-01-26 11:00 | Emergency Department Note ---
Disposition Clinical Impression: Dehydration Disposition: Still a Patient Referrals: Jaylan Moran MD [Primary Care Provider] - General Adult HPI - General Chief complaint: ED Recheck/Abnormal Lab/Rx Stated complaint: Kidney Infection Time Seen by Provider: 01/26/18 09:54 Source: patient, EMS Limitations: no limitations - History of Present Illness Pain Scale: 8 - Related Data Home Medications Medication Instructions Recorded Confirmed Esomeprazole Magnesium [Nexium] 40 mg PO BID 01/20/18 01/20/18 Estradiol [Estradiol] 2 mg PO DAILY 01/20/18 01/20/18 FLUoxetine HCl [Fluoxetine HCl] 40 mg PO BID 01/20/18 01/20/18 LORazepam [Lorazepam] 2 mg PO TID PRN 01/20/18 01/20/18 Levomefolate/B6/B12/Algal Oil 1 cap PO BID 01/20/18 01/20/18 [Metanx Capsule] Lisinopril [Zestril] 10 mg PO DAILY 01/20/18 01/20/18 Ondansetron HCl [Ondansetron HCl] 4 mg PO BID PRN 01/20/18 01/20/18 Promethazine HCl 12.5 mg PO BID PRN 01/20/18 01/20/18 Rosuvastatin [Crestor] 20 mg PO HS 01/20/18 01/20/18 Subcutaneous Insulin Pump [T:Slim] 1 each MC ONCE 01/20/18 01/20/18 lamoTRIgine [Lamictal] 100 mg PO QAM 01/20/18 01/20/18 lamoTRIgine [Lamictal] 300 mg PO QPM 01/20/18 01/20/18 Previous Rx's Medication Instructions Recorded HYDROcodone/Acet 5/325 mg [[place] 1 tab PO Q6H PRN 2 Days #10 tab 01/22/18 5-325 mg] Promethazine [Phenergan] 25 mg PO Q6-8H PRN #12 tablet 01/22/18 Allergies Allergy/AdvReac Type Severity Reaction Status Date / Time acetaminophen [From Tylenol] Allergy Rash Verified 01/26/18 09:45 azithromycin Allergy Hives Verified 01/26/18 09:45 Cortisone Allergy Swelling Verified 01/26/18 09:45 of Lip/Tongue/Throat hydrocodone Allergy Anaphylaxis Verified 01/26/18 09:45 ketorolac [From Toradol] Allergy Swelling Verified 01/26/18 09:45 of Lip/Tongue/Throat latex Allergy Rash Verified 01/26/18 09:45 morphine Allergy Anaphylaxis Verified 01/26/18 09:45 NSAIDS (Non-Steroidal Allergy Swelling Verified 01/26/18 09:45 Anti-Inflamma of Lip/Tongue/Throat metoclopramide [From Reglan] AdvReac Vomiting Verified 01/26/18 09:45 tramadol [From Ultram] AdvReac Vomiting Verified 01/26/18 09:45 Past Medical History - Past Medical History Medical history: Reports: asthma, diabetes, GERD, hyperlipidemia, hypertension, other Surgical history: Reports: appendectomy, cholecystectomy, hysterectomy, knee replacement, other Psychiatric history: Reports: anxiety, depression, panic disorder LINE OUT MAN history: Reports: other - Social History Smoking Status: Current every day smoker Smokeless Tobacco Status: No Alcohol use: Reports: none Drug use: Reports: none Physical Exam - General Limitations: no limitations General appearance: alert, in no apparent distress Course - Reevaluation(s) Reevaluation #1: ATTESTATION NOTE I examined this patient and my medical decision-making was reviewed with the Resident Physician/DEFENSIVE LINE COACH/PA. I agree with the documented findings, disposition and treatment plan as described except to the extent set forth below. I have independently evaluated the patient, & had [id number] contact. Patient was seen with the emergency medicine resident SARAI CHAND, please see a copy of her notes for details of the patient encounter. Briefly: 37-year-old female diabetic presents with being treated at an outpatient urgent care clinic for UTI/pyelonephritis. Patient also has diabetes. Patient is very difficult peripheral IV stick and midline team came in and placed a midline and treatment labs. Patient was unable to urinate and showed a Valle catheter placed which drained over a liter of urine. Which was yellow but nontender bit. Screening labs antibiotics are pending. Admission anticipated. Providing 30 minutes critical care service for this patient. Disposition pending Time: 10:58 Vital Signs Temperature 98.6 F 01/26/18 09:41 Pulse Rate 87 01/26/18 09:41 Respiratory Rate 18 01/26/18 09:41 Blood Pressure 143/85 01/26/18 09:41 O2 Sat by Pulse Oximetry 96 01/26/18 09:41 Temperature 98.6 F 01/26/18 09:41 Pulse Rate 87 01/26/18 09:41 Respiratory Rate 18 01/26/18 09:41 Blood Pressure 143/85 01/26/18 09:41 O2 Sat by Pulse Oximetry 96 01/26/18 09:41 Oxygen Delivery Oxygen Delivery Room Air Medical Decision Making - Lab Data Lab Results 01/26/18 Range/Units 10:32 Urine Test Negative (Negative)
[2018-01-26 11:01] LABS: Clarity,Urine Cloudy (Clear); Color,Urine Dark Yellow (Yellow)
[2018-01-26] MEDS: 0.9 % Sodium Chloride 1,000 ML IVC SCH ×3 (11:08→15:18)
[2018-01-26 11:13] LABS: Basophils % 0.8 %; Eosinophils # 0.1 K/mcL (0.0-0.6); Eosinophils % 3.3 %; Hematocrit 32.3 % (35.3-44.9); Hemoglobin 11.3 g/dL (11.5-15.4); Immature Granulocytes % 0.5 % (0-4); Lymphocytes # 1.2 K/mcL (0.6-4.6); Lymphocytes % 29.4 %; Mean Corpuscular Hemoglobin 30.4 pg (28.0-33.3); Mean Corpuscular Volume 86.8 fL (83.0-100.0); Mean Platelet Volume 9.9 fL (9.4-12.4); Monocytes # 0.2 K/mcL (0.0-1.3); Monocytes % 4.9 %; Neutrophils # 2.4 K/mcL (1.6-8.9); Nucleated Red Blood Cells 0.5 /100 WBC (0); Platelet Count 214 K/mcL (140-400); Red Blood Count 3.72 M/mcL (3.82-4.97); Red Cell Distribution Width 13.1 % (11.5-14.5); Segmented Neutrophils % 61.1 %
[2018-01-26 11:15] LABS: VBG HCO3 26 mEq/L (21-27); VBG PCO2 42 mmHg (41-51); VBG PO2 117 mmHg (25-50)
[2018-01-26 11:30] LABS: Troponin I < 0.03 ng/mL (< 0.04)
--- NOTE | 2018-01-26 11:31 | Emergency Department Note ---
Disposition Clinical Impression: Dehydration, Hyperglycemia due to type 1 diabetes mellitus Chest pain Qualifiers: Chest pain type: unspecified Qualified Code(s): R07.9 - Chest pain, unspecified Intractable nausea and vomiting Qualifiers: Vomiting type: unspecified Qualified Code(s): R11.2 - Nausea with vomiting, unspecified UTI (urinary tract infection) Qualifiers: Urinary tract infection type: site unspecified Hematuria presence: without hematuria Qualified Code(s): N39.0 - Urinary tract infection, site not specified Disposition: Still a Patient Referrals: Jaylan Moran MD [Primary Care Provider] - Forms: ED Satisfaction Letter General Adult HPI - General Chief complaint: ED Recheck/Abnormal Lab/Rx Stated complaint: Kidney Infection Time Seen by Provider: 01/26/18 09:54 Source: patient, EMS Limitations: no limitations Nursing Notes Reviewed: Yes Vital Signs Reviewed: Yes - History of Present Illness HPI Narrative: Patient is a 37-year-old female who presents to [facility] ED with a chief complaint of urinary retention and possible kidney infection. States she has a history of type 1 diabetes with an insulin pump. States her sugars have been in the 400s. States she went to an urgent care yesterday to and was told she might have a kidney infection. She was given a dose of Rocephin and started on Macrobid. States since today, she has not been able to urinate. She has increased pressure in her abdomen. Admits to some nausea, no vomiting. She took some sublingual Zofran at home without relief. Also complaining of some chest discomfort that started when she woke up this morning that is nonexertional and constant. Onset (ago): day(s) Location: abdomen Radiation: back Pain Severity: moderate Pain Scale: 8 Consistency: constant Improves with: nothing Worsens with: nothing Associated symptoms: Reports: chest pain. Denies: fever/chills, nausea/vomiting - Related Data Home Medications Medication Instructions Recorded Confirmed Esomeprazole Magnesium [Nexium] 40 mg PO BID 01/20/18 01/20/18 Estradiol [Estradiol] 2 mg PO DAILY 01/20/18 01/20/18 FLUoxetine HCl [Fluoxetine HCl] 40 mg PO BID 01/20/18 01/20/18 LORazepam [Lorazepam] 2 mg PO TID PRN 01/20/18 01/20/18 Levomefolate/B6/B12/Algal Oil 1 cap PO BID 01/20/18 01/20/18 [Metanx Capsule] Lisinopril [Zestril] 10 mg PO DAILY 01/20/18 01/20/18 Ondansetron HCl [Ondansetron HCl] 4 mg PO BID PRN 01/20/18 01/20/18 Promethazine HCl 12.5 mg PO BID PRN 01/20/18 01/20/18 Rosuvastatin [Crestor] 20 mg PO HS 01/20/18 01/20/18 Subcutaneous Insulin Pump [T:Slim] 1 each MC ONCE 01/20/18 01/20/18 lamoTRIgine [Lamictal] 100 mg PO QAM 01/20/18 01/20/18 lamoTRIgine [Lamictal] 300 mg PO QPM 01/20/18 01/20/18 Previous Rx's Medication Instructions Recorded HYDROcodone/Acet 5/325 mg [[place] 1 tab PO Q6H PRN 2 Days #10 tab 01/22/18 5-325 mg] Promethazine [Phenergan] 25 mg PO Q6-8H PRN #12 tablet 01/22/18 Allergies Allergy/AdvReac Type Severity Reaction Status Date / Time acetaminophen [From Tylenol] Allergy Rash Verified 01/26/18 11:57 azithromycin Allergy Hives Verified 01/26/18 11:57 Cortisone Allergy Swelling Verified 01/26/18 11:57 of Lip/Tongue/Throat hydrocodone Allergy Anaphylaxis Verified 01/26/18 11:57 ketorolac [From Toradol] Allergy Swelling Verified 01/26/18 11:57 of Lip/Tongue/Throat latex Allergy Rash Verified 01/26/18 11:57 morphine Allergy Anaphylaxis Verified 01/26/18 11:57 NSAIDS (Non-Steroidal Allergy Swelling Verified 01/26/18 11:57 Anti-Inflamma of Lip/Tongue/Throat metoclopramide [From Reglan] AdvReac Vomiting Verified 01/26/18 11:57 tramadol [From Ultram] AdvReac Vomiting Verified 01/26/18 11:57 All systems ED: reviewed and negative except as stated. Past Medical History - Past Medical History Attestation: Yes The following information was validated with the patient. Source: patient Medical history: Reports: asthma, diabetes, GERD, hyperlipidemia, hypertension, other Surgical history: Reports: appendectomy, cholecystectomy, hysterectomy, knee replacement, other Psychiatric history: Reports: anxiety, depression, panic disorder LEARNING SUPPORT ASSISTANT history: Reports: other - Social History Smoking Status: Current every day smoker Smokeless Tobacco Status: No Alcohol use: Reports: none Drug use: Reports: none Physical Exam - General Limitations: no limitations General appearance: alert, in no apparent distress - Head Head exam: atraumatic, normocephalic, normal inspection - Eye Eye exam: Present: normal appearance, EOMI - ENT ENT exam: normal exam, normal oropharynx, mucous membranes moist - Neck Neck exam: Present: normal inspection, full ROM, trachea midline - Chest Chest inspection: Present: normal inspection, symmetric chest wall rise - Respiratory Respiratory exam: Present: normal lung sounds bilaterally - Cardiovascular Cardiovascular exam: Present: regular rate, normal rhythm, normal heart sounds - Abdominal Exam Abdominal exam: Present: soft, tenderness, normal bowel sounds. Absent: distention, guarding, rebound, rigidity Abdominal tenderness: Present: diffuse - Extremities Exam Extremities exam: Present: normal inspection, full ROM. Absent: tenderness, pedal edema - Back Exam Back exam: Present: normal inspection, full ROM. Absent: tenderness - Neurological Exam Neurological exam: Present: alert, oriented X3 - Psychiatric Psychiatric exam: Present: normal affect, normal mood - Skin Skin exam: Present: warm, dry, intact, normal color Course Course Narrative: Patient seen and examined. Recent diagnosis of kidney infection. Has been on Macrobid and now having urinary retention. We will give a dose of Levaquin here. Basic lab work, workup for DKA as well as chest x-ray and EKG ordered. Vital Signs Temperature 98.6 F 01/26/18 09:41 Pulse Rate 87 01/26/18 09:41 Respiratory Rate 18 01/26/18 09:41 Blood Pressure 143/85 01/26/18 09:41 O2 Sat by Pulse Oximetry 96 01/26/18 09:41 Temperature 98.6 F 01/26/18 09:41 Pulse Rate 94 01/26/18 11:09 Respiratory Rate 18 01/26/18 11:09 Blood Pressure 115/88 01/26/18 11:09 O2 Sat by Pulse Oximetry 97 01/26/18 11:09 Oxygen Delivery Oxygen Delivery Room Air Medical Decision Making - Medical Records Medical records reviewed: Yes I reviewed the patient's medical records. - Lab Data Lab results reviewed: Yes I reviewed the patient's lab results. Result diagrams: 01/26/18 10:53 Lab Results 01/26/18 01/26/18 01/26/18 Range/Units 10:29 10:32 10:53 WBC 3.9 L D (4.3-11.1) K/mcL RBC 3.72 L (3.82-4.97) M/mcL Hgb 11.3 L (11.5-15.4) g/dL Hct 32.3 L (35.3-44.9) % MCV 86.8 (83.0-100.0) fL MCH 30.4 (28.0-33.3) pg MCHC 35.0 (31.6-35.5) g/dL RDW 13.1 (11.5-14.5) % Plt Count 214 (140-400) K/mcL MPV 9.9 (9.4-12.4) fL Immature Gran % 0.5 (0-4) % Seg Neutrophils % 61.1 % Lymphocytes % 29.4 % Monocytes % 4.9 % Eosinophils % 3.3 % Basophils % 0.8 % Neutrophils # 2.4 (1.6-8.9) K/mcL Lymphocytes # 1.2 (0.6-4.6) K/mcL Monocytes # 0.2 (0.0-1.3) K/mcL Eosinophils # 0.1 (0.0-0.6) K/mcL Basophils # 0.0 (0.0-0.2) K/mcL Nucleated RBCs/100 WBC 0.5 H (0) /100 WBC VBG pH (7.32-7.42) pH Units VBG pCO2 (41-51) mmHg VBG pO2 (25-50) mmHg VBG HCO3 (21-27) mEq/L Lactic Acid (0.5-2.2) mmol/L Troponin I (< 0.04) ng/mL Beta-Hydroxybutyric Acd (0.02-0.27) mmol/L Urine Color Dark Yellow (Yellow) Urine Clarity Cloudy A (Clear) Urine pH 7.0 (5.0-8.0) pH Units Ur Specific [place] 1.025 (1.010-1.025) Urine Protein Negative (Neg-Trace) mg/dL Urine Glucose (UA) >=1000 H (Normal) mg/dL Urine Ketones Negative (Negative) mg/dL Urine Blood Trace H (Negative) Urine Nitrite Positive A (Negative) Urine Bilirubin Negative (Negative) Urine Urobilinogen Normal (Normal) mg/dL Ur Leukocyte Esterase Negative (Negative) Urine Microscopic RBC 5-15 H (0-3) per hpf Urine Microscopic WBC 5-15 H (0-3) per hpf Ur Squamous Epith Cells Many H (None-Few) per lpf Urine Bacteria Moderate H (None-Few) per hpf Hyaline Casts None Seen (None-Few) per lpf Ur Culture Indicated? NO. A (NO) Urine Test Negative (Negative) 01/26/18 01/26/18 01/26/18 Range/Units 10:53 10:53 10:53 WBC (4.3-11.1) K/mcL RBC (3.82-4.97) M/mcL Hgb (11.5-15.4) g/dL Hct (35.3-44.9) % MCV (83.0-100.0) fL MCH (28.0-33.3) pg MCHC (31.6-35.5) g/dL RDW (11.5-14.5) % Plt Count (140-400) K/mcL MPV (9.4-12.4) fL Immature Gran % (0-4) % Seg Neutrophils % % Lymphocytes % % Monocytes % % Eosinophils % % Basophils % % Neutrophils # (1.6-8.9) K/mcL Lymphocytes # (0.6-4.6) K/mcL Monocytes # (0.0-1.3) K/mcL Eosinophils # (0.0-0.6) K/mcL Basophils # (0.0-0.2) K/mcL Nucleated RBCs/100 WBC (0) /100 WBC VBG pH (7.32-7.42) pH Units VBG pCO2 (41-51) mmHg VBG pO2 (25-50) mmHg VBG HCO3 (21-27) mEq/L Lactic Acid 0.7 (0.5-2.2) mmol/L Troponin I < 0.03 (< 0.04) ng/mL Beta-Hydroxybutyric Acd 0.22 (0.02-0.27) mmol/L Urine Color (Yellow) Urine Clarity (Clear) Urine pH (5.0-8.0) pH Units Ur Specific Adams (1.010-1.025) Urine Protein (Neg-Trace) mg/dL Urine Glucose (UA) (Normal) mg/dL Urine Ketones (Negative) mg/dL Urine Blood (Negative) Urine Nitrite (Negative) Urine Bilirubin (Negative) Urine Urobilinogen (Normal) mg/dL Ur Leukocyte Esterase (Negative) Urine Microscopic RBC (0-3) per hpf Urine Microscopic WBC (0-3) per hpf Ur Squamous Epith Cells (None-Few) per lpf Urine Bacteria (None-Few) per hpf Hyaline Casts (None-Few) per lpf Ur Culture Indicated? (NO) Urine Test (Negative) 01/26/18 Range/Units 11:12 WBC (4.3-11.1) K/mcL RBC (3.82-4.97) M/mcL Hgb (11.5-15.4) g/dL Hct (35.3-44.9) % MCV (83.0-100.0) fL MCH (28.0-33.3) pg MCHC (31.6-35.5) g/dL RDW (11.5-14.5) % Plt Count (140-400) K/mcL MPV (9.4-12.4) fL Immature Gran % (0-4) % Seg Neutrophils % % Lymphocytes % % Monocytes % % Eosinophils % % Basophils % % Neutrophils # (1.6-8.9) K/mcL Lymphocytes # (0.6-4.6) K/mcL Monocytes # (0.0-1.3) K/mcL Eosinophils # (0.0-0.6) K/mcL Basophils # (0.0-0.2) K/mcL Nucleated RBCs/100 WBC (0) /100 WBC VBG pH 7.40 (7.32-7.42) pH Units VBG pCO2 42 (41-51) mmHg VBG pO2 117 H (25-50) mmHg VBG HCO3 26 (21-27) mEq/L Lactic Acid (0.5-2.2) mmol/L Troponin I (< 0.04) ng/mL Beta-Hydroxybutyric Acd (0.02-0.27) mmol/L Urine Color (Yellow) Urine Clarity (Clear) Urine pH (5.0-8.0) pH Units Ur Specific [place] (1.010-1.025) Urine Protein (Neg-Trace) mg/dL Urine Glucose (UA) (Normal) mg/dL Urine Ketones (Negative) mg/dL Urine Blood (Negative) Urine Nitrite (Negative) Urine Bilirubin (Negative) Urine Urobilinogen (Normal) mg/dL Ur Leukocyte Esterase (Negative) Urine Microscopic RBC (0-3) per hpf Urine Microscopic WBC (0-3) per hpf Ur Squamous Epith Cells (None-Few) per lpf Urine Bacteria (None-Few) per hpf Hyaline Casts (None-Few) per lpf Ur Culture Indicated? (NO) Urine Test (Negative) - Radiology Data Radiology results reviewed: Yes I reviewed the patient's radiology results. Chest X-Ray 01/26/18 10:02 IMPRESSION: No acute process. D/ / Domingo Burgos MD / Domingo Burgos MD Interpreting Provider: Domingo Burgos MD - EKG Data EKG #1 EKG attestation: Yes I reviewed and interpreted this EKG. EKG results narrative: EKG done at 942 shows normal sinus rhythm with a rate of [address] elevation or depression. Normal axis.
[2018-01-26 11:42] LABS: Alanine Aminotransferase 11 Units/L (7-52); Albumin 3.5 g/dL (3.5-5.7); Albumin/Globulin Ratio 1.2 (1.1-2.2); Alkaline Phosphatase 102 Units/L (34-104); Aspartate Amino Transferase 13 Units/L (13-39); BUN/Creatinine Ratio 15 (6-26); Bilirubin,Total 0.2 mg/dL (0.3-1.0); Blood Urea Nitrogen 15 mg/dL (6-20); Calcium 8.6 mg/dL (8.6-10.3); Carbon Dioxide 23 mEq/L (23-29); Chloride 103 mEq/L (98-107); Glucose 468 mg/dL (70-105); Osmolality,Calculated 297 (280-300); Potassium 3.8 mEq/L (3.5-5.1); Sodium 133 mEq/L (136-145); Total Protein 6.5 g/dL (6.4-8.9); eGFR For African Americans > 60 (> 60); eGFR For Non-African Americans > 60 (> 60)
[2018-01-26] MEDS ORDERED: *HR* Promethazine 25 MG/ML VIAL IVP ONE (11:42)
[2018-01-26] MEDS ORDERED: Insulin Regular, Human 100 UNIT/ML IV SCH (11:45)
[2018-01-26] MEDS ORDERED: Levofloxacin 750 MG/150 ML 750 MG/150 ML BAG IVPB ONE (11:47)
[2018-01-26] MEDS ORDERED: Acetaminophen 325 MG TABLET PO PRN (13:06)
[2018-01-26] MEDS ORDERED: Dextrose Gel 15 GM/37.5 ML TUBE PO PRN ×2 (13:07)
[2018-01-26] MEDS ORDERED: OXYCODONE Oral CONC 10 MG/0.5 ML ORAL.SYG SL PRN ×2 (13:07)
[2018-01-26] MEDS ORDERED: Naloxone 0.4 MG/ML INJ IVP PRN (13:07)
[2018-01-26] MEDS ORDERED: *HR* LORazepam 1 MG TABLET PO PRN (13:10)
--- NOTE | 2018-01-26 13:14 | Internal Med History&Physical ---
Date of Encounter: 01/26/18 Time of Encounter: 13:12 Internal Medicine - H&P: HPI Chief complaint: Fever and back pain Admitted From: Emergency Dept History of present illness: Ms. Gaming is a 37 year old female with a past medical history of diabetes type 1 using an insulin pump, gastroparesis, depression, recurrent UTIs who has been having dysuria for a few days, fever of 102 at home, white blood cell count is 3.9, went to the urgent care and received nitroglycerin few and 29 Rocephin yesterday without any improvement. Today her back pain is worse and urine has a reddish color. The UA showed positive nitrates and more than 15 white blood cells with many bacteria but he was not reflexed for culture. I called personally the microbiology laboratory and placed an order in the system for a to be done. The patient is very tender in both left and right flanks, has a Valle catheter with discolored/reddish urine. Was given Levaquin at the emergency room. In the past she has grown gram-negative bacteria that has responded to Rocephin and Levaquin except for the last time where she grew Staphylococcus epidermides which can be a contaminant but it was resistant to quinolones. She appears to be in discomfort, has been having nausea and vomiting, sodium is 133 glucose 468 with an anion gap of 7. Past Med Surg Social Fam HX - Past Medical History Medical history: asthma, diabetes (Type I using an insulin pump), GERD, hyperlipidemia, hypertension, other (Recurrent UTIs, gastroparesis, tobacco use , depression, anxiety, panic disorder) Additional medical history: recurrent headaches. anxiety. GERD. CT spine, pelvis, lumbar. 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 partial left knee replacement 2009. right shoulder rivas placement 2001. Hysterectomy & BSO 2010. c section 2009. left knee replacement 2014. CTR right and left hand trigger finger 2011- 2012 - Social History Smoking Status: Current every day smoker Packs per day: One pack per week Smokeless Tobacco Status: No Alcohol use: none Drug use: none - Family History Mother Family Member Ethnicity: Non- Living Status: Still Living Hx Family Cardiac Disorders: Yes (HTN, HLD) Hx Family Respiratory Disorders: Yes (Asthma) Father Family Member Ethnicity: Non- Living Status: Still Living Hx Family Cardiac Disorders: Yes (HTN, HLD) Hx Family Respiratory Disorders: Yes Hx Family GI Disorders: Yes (cirrhosis) Hx Family Endocrine Disorder: Yes (Cirrhosis) Hx Family Autoimmune Disorders: Yes (Alkylosing Spondylitis) Brother Family Member Ethnicity: Non- Living Status: Still Living Hx Family Endocrine Disorder: Yes (Pancreatitis, Cirrhosis) Sister Family Member Ethnicity: Non- Living Status: Still Living Grandfather Family Member Ethnicity: Non- Living Status: Hx Family Cardiac Disorders: Yes (AK, Stroke) Hx Family Endocrine Disorder: Yes (DM) - Additional Family History Additional family history: Father with hypertension, hyperlipidemia and cirrhosis, brother with pancreatitis and cirrhosis, mother with hypertension and asthma Internal Medicine - H&P: Meds Esomeprazole Magnesium [Nexium] 40 mg PO BID 01/20/18 [History] Estradiol [Estradiol] 2 mg PO DAILY 01/20/18 [History] FLUoxetine HCl [Fluoxetine HCl] 40 mg PO BID 01/20/18 [History] LORazepam [Lorazepam] 2 mg PO TID PRN 01/20/18 [History] Levomefolate/B6/B12/Algal Oil [Metanx Capsule] 1 cap PO BID 01/20/18 [History] Lisinopril [Zestril] 10 mg PO DAILY 01/20/18 [History] Ondansetron HCl [Ondansetron HCl] 4 mg PO BID PRN 01/20/18 [History] Promethazine HCl 12.5 mg PO BID PRN 01/20/18 [History] Rosuvastatin [Crestor] 20 mg PO HS 01/20/18 [History] Subcutaneous Insulin Pump [T:Slim] 1 each MC ONCE 01/20/18 [History] lamoTRIgine [Lamictal] 100 mg PO QAM 01/20/18 [History] lamoTRIgine [Lamictal] 300 mg PO QPM 01/20/18 [History] HYDROcodone/Acet 5/325 mg [[place] 5-325 mg] 1 tab PO Q6H PRN 2 Days #10 tab 01/22 [Rx] Promethazine [Phenergan] 25 mg PO Q6-8H PRN #12 tablet 01/22/18 [Rx] 3 Allergy/AdvReac Type Severity Reaction Status Date / Time acetaminophen [From Tylenol] Allergy Rash Verified 01/26/18 11:57 azithromycin Allergy Hives Verified 01/26/18 11:57 Cortisone Allergy Swelling Verified 01/26/18 11:57 of Lip/Tongue/Throat hydrocodone Allergy Anaphylaxis Verified 01/26/18 11:57 ketorolac [From Toradol] Allergy Swelling Verified 01/26/18 11:57 of Lip/Tongue/Throat latex Allergy Rash Verified 01/26/18 11:57 morphine Allergy Anaphylaxis Verified 01/26/18 11:57 NSAIDS (Non-Steroidal Allergy Swelling Verified 01/26/18 11:57 Anti-Inflamma of Lip/Tongue/Throat metoclopramide [From Reglan] AdvReac Vomiting Verified 01/26/18 11:57 tramadol [From Ultram] AdvReac Vomiting Verified 01/26/18 11:57 All Systems PM: A 10-system review of systems was performed and is negative for pertinent findings except as documented above in the HPI. Review of systems: Fever, back pain, other systems out of the 10 reviewed were negative - Constitutional Vitals: Temp Pulse Resp BP Pulse Ox 98.6 F 90 16 137/87 98 01/26/18 09:41 01/26/18 13:00 01/26/18 13:00 01/26/18 13:00 01/26/18 13:00 General appearance: Present: A&O X 3 (Dry mucosa) - Head Head exam: Present: atraumatic, normocephalic - Eye Eye exam: Present: PERRL, conjuntiva pink, sclera anicteric Pupils: Present: PERRL - Neck Neck exam general surgery: Present: supple, trachea midline. Absent: lymphadenopathy - Respiratory Respiratory exam: Present: CTAB. Absent: accessory muscle use, rales, rhonchi, wheezes - Cardiovascular Cardiovascular exam: Present: RRR, +S1, +S2, tachycardia. Absent: diastolic murmur, gallop, rubs, systolic murmur - GI/Abdominal GI/Abdominal exam: Present: normal bowel sounds, soft, no peritoneal signs. Absent: distended, tenderness - Extremities Exam Extremities exam: Present: warm, radial pulses palpable and symmetrical. Absent : calf tenderness, cyanotic, pedal edema Additional comments: Bilateral flank tenderness - Neurological Exam Neurological exam: Present: CN II-XII intact, oriented X3, no focal deficits. Absent: pronater drift, facial droop, speech deficit - Skin Skin exam: Present: dry, intact Internal Med - H&P Results - Labs CBC & Chem 7: 01/26/18 10:53 01/26/18 10:53 Labs: Short CBC 01/26/18 Range/Units 10:53 WBC 3.9 L D (4.3-11.1) K/mcL Hgb 11.3 L (11.5-15.4) g/dL Hct 32.3 L (35.3-44.9) % Plt Count 214 (140-400) K/mcL Neutrophils # 2.4 (1.6-8.9) K/mcL BMP 01/26/18 10:53 Sodium 133 L Potassium 3.8 Chloride 103 Carbon Dioxide 23 BUN 15 Creatinine 0.97 Glucose 468 H Calcium 8.6 Cardiac Enzymes 01/26/18 Range/Units 10:53 Troponin I < 0.03 (< 0.04) ng/mL Liver Function 01/26/18 Range/Units 10:53 Total Bilirubin 0.2 L (0.3-1.0) mg/dL AST 13 (13-39) Units/L ALT 11 (7-52) Units/L Alkaline Phosphatase 102 (34-104) Units/L Albumin 3.5 (3.5-5.7) g/dL Urine 01/26/18 Range/Units 10:29 Urine Color Dark Yellow (Yellow) Urine Clarity Cloudy A (Clear) Urine pH 7.0 (5.0-8.0) pH Units Ur Specific [place] 1.025 (1.010-1.025) Urine Protein Negative (Neg-Trace) mg/dL Urine Glucose (UA) >=1000 H (Normal) mg/dL - ABG Interpretation ABG results: 01/26/18 11:12 VBG pH 7.40 VBG pCO2 42 VBG pO2 117 H VBG HCO3 26 - Impressions ITS Impressions Chest X-Ray 01/26/18 10:02 IMPRESSION: No acute process. D/ / Domingo Burgos MD / Domingo Burgos MD Interpreting Provider: Domingo Burgos MD - Assessment and plan (1) Sepsis Current Visit: Yes Status: Acute Assessment and plan: Sepsis secondary to urinary tract infection, possible pyelonephritis Order stat CT scan of the abdomen Continue Levaquin and start doxycycline IV as the patient grew Staphylococcus resistant to quinolones in the past Adjust antibiotic therapy according to culture report Culture was added Blood cultures, IV fluids, pain control Omeprazole for GI prophylaxis and sequential compression devices for DVT prophylaxis. The patient will be admitted as inpatient, expected to stay more than 2 midnights. Full code. Time spent on this admission 40 minutes, high risk due to sepsis Qualifiers: Sepsis type: sepsis due to unspecified organism Qualified Code(s): A41.9 - Sepsis, unspecified organism (2) Dehydration Current Visit: Yes Status: Acute Assessment and plan: IV fluids (3) Hyperglycemia due to type 1 diabetes mellitus Current Visit: Yes Status: Acute Assessment and plan: Continue insulin pump, may add sliding scale for additional coverage (4) UTI (urinary tract infection) Current Visit: Yes Status: Acute Qualifiers: Urinary tract infection type: site unspecified Hematuria presence: with hematuria Qualified Code(s): N39.0 - Urinary tract infection, site not specified; R31.9 - Hematuria, unspecified (5) Tobacco abuse Current Visit: No Status: Chronic Assessment and plan: Smoking cessation counseling, nicotine patch - Time Spent With Patient Total time spent is greater than 50% in coordination of care (as documented) at patient's floor/unit and/or counseling patient:
[2018-01-26] MEDS: Doxycycline 100 MG in 0.9 % Sodium Chloride Mini Bag 100 ML IVPB SCH (15:15)
[2018-01-26] MEDS: *HR* Promethazine 25 MG/ML VIAL IVP PRN ×2 (15:18→19:21)
[2018-01-26] MEDS: Nicotine 14 MG PATCH.TD24 TD SCH (15:18)
[2018-01-26] MEDS: Insulin LISPRO 300 UNITS/3 ML VIAL SQ SCH ×3 (15:19→20:41)
[2018-01-26] MEDS: lamoTRIgine 100 MG TABLET PO SCH (18:07)
[2018-01-26] MEDS: OXYCODONE Oral CONC 10 MG/0.5 ML ORAL.SYG SL PRN ×3 (18:21→22:37)
[2018-01-26] MEDS: *HR* LORazepam 1 MG TABLET PO PRN (20:41)
[2018-01-26] MEDS: FLUoxetine 20 MG CAPSULE PO SCH (20:41)
[2018-01-26] MEDS: *HR* Dextrose 50 % in Water (Syg) 50 ML SYRINGE IVP PRN (22:49)
[2018-01-26] MEDS: Ondansetron 4 MG/2 ML VIAL IVP PRN (22:53)
[2018-01-27] MEDS: 0.9 % Sodium Chloride 1,000 ML IVC SCH ×6 (00:09→11:45)
[2018-01-27] MEDS: OXYCODONE Oral CONC 10 MG/0.5 ML ORAL.SYG SL PRN ×6 (00:37→19:17)
[2018-01-27] MEDS: *HR* Dextrose 50 % in Water (Syg) 50 ML SYRINGE IVP PRN ×4 (00:45→18:40)
[2018-01-27] MEDS: *HR* Promethazine 25 MG/ML VIAL IVP PRN ×4 (00:46→21:51)
[2018-01-27] MEDS ORDERED: *HR* FentaNYL (PF) 100 MCG/2 ML VIAL IVP ONE (00:47)
[2018-01-27 04:23] LABS: Mean Corpuscular HGB Conc 34.5 g/dL (31.6-35.5); Mean Corpuscular Volume 87.1 fL (83.0-100.0); Mean Platelet Volume 10.3 fL (9.4-12.4); Platelet Count 198 K/mcL (140-400); Red Blood Count 3.33 M/mcL (3.82-4.97)
[2018-01-27 04:46] LABS: BUN/Creatinine Ratio 18 (6-26); Blood Urea Nitrogen 16 mg/dL (6-20); Calcium 8.1 mg/dL (8.6-10.3); Carbon Dioxide 24 mEq/L (23-29); Chloride 109 mEq/L (98-107); Glucose 63 mg/dL (70-105); Osmolality,Calculated 289 (280-300); Potassium 3.3 mEq/L (3.5-5.1); Sodium 140 mEq/L (136-145); eGFR For African Americans > 60 (> 60); eGFR For Non-African Americans > 60 (> 60)
[2018-01-27] MEDS: Doxycycline 100 MG in 0.9 % Sodium Chloride Mini Bag 100 ML IVPB SCH (05:32)
[2018-01-27] MEDS: D5% in Water 1,000 ML IVC PRN ×2 (05:32→18:50)
[2018-01-27] MEDS: Insulin LISPRO 300 UNITS/3 ML VIAL SQ SCH ×5 (07:36→21:49)
--- NOTE | 2018-01-27 08:41 | Electrocardiograph Report ---
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
[2018-01-27] MEDS ORDERED: lamoTRIgine 100 MG TABLET PO SCH (09:00)
[2018-01-27] MEDS ORDERED: Levofloxacin 750 MG/150 ML 750 MG/150 ML BAG IVPB SCH (09:00)
[2018-01-27] MEDS: FLUoxetine 20 MG CAPSULE PO SCH ×2 (10:27→21:52)
[2018-01-27] MEDS: Nicotine 14 MG PATCH.TD24 TD SCH (10:42)
[2018-01-27] MEDS: Ondansetron 4 MG/2 ML VIAL IVP PRN (10:43)
[2018-01-27] MEDS: *HR* LORazepam 1 MG TABLET PO PRN ×2 (13:46→19:54)
--- NOTE | 2018-01-27 14:02 | Internal Med Progress Note ---
Date of Encounter: 01/27/18 Time of Encounter: 14:00 - Assessment and plan (1) UTI (urinary tract infection) Current Visit: Yes Status: Acute Assessment and plan: presented with ABD pain, UA indicative of UTI (discussed with micro 01/27 and urine was to contaminated to be sent for culture). Previous urine culture shows resistance to quinolones. Continue doxycycline. Repeat UA with C&S. Still reporting 10/10 flank pain with 15mg every 4 hour PRN oxycodone. Add lidoderm patch. Would avoid IV pain medicine as patient has known drug-seeking/ malingering behavior. Qualifiers: Urinary tract infection type: site unspecified Hematuria presence: with hematuria Qualified Code(s): N39.0 - Urinary tract infection, site not specified; R31.9 - Hematuria, unspecified (2) Hyperglycemia due to type 1 diabetes mellitus Current Visit: Yes Status: Acute Assessment and plan: per hx. Blood sugars have been labile. Hold home insulin pump. Add low dose SSI. Monitor blood sugars (3) Dehydration Current Visit: Yes Status: Acute Assessment and plan: IV fluids (4) Tobacco abuse Current Visit: No Status: Chronic Assessment and plan: Smoking cessation counseling, nicotine patch (5) DVT prophylaxis Current Visit: No Status: Acute Assessment and plan: heparin - Time Spent With Patient Total time spent is greater than 50% in coordination of care (as documented) at patient's floor/unit and/or counseling patient: - Subjective Interval history: Seen and examined at bedside. Patient is known to me from previous hospital sensations. She still complaining of severe 10/10 left flank pain. She is requesting an increase in her pain medicine and specifically wants something through her IV. Advised her to continue taking her dose of oxycodone every 4 hours in addition to heating pad and Lidoderm patch. - Constitutional Vitals: Temp Pulse Resp BP Pulse Ox 98.0 F 70 16 151/84 98 01/27/18 11:07 01/27/18 11:07 01/27/18 11:07 01/27/18 11:07 01/27/18 11:07 General appearance: Present: A&O X 3 - Head Head exam: Present: atraumatic, normocephalic - Eye Eye exam: Present: PERRL, conjuntiva pink, sclera anicteric Pupils: Present: PERRL - Neck Neck exam general surgery: Present: supple, trachea midline. Absent: lymphadenopathy - Respiratory Respiratory exam: Present: CTAB. Absent: accessory muscle use, rales, rhonchi, wheezes - Cardiovascular Cardiovascular exam: Present: RRR, +S1, +S2. Absent: diastolic murmur, gallop, rubs, systolic murmur - GI/Abdominal GI/Abdominal exam: Present: normal bowel sounds, soft, no peritoneal signs. Absent: distended, tenderness - External exam: Absent: normal external exam (Flank tenderness) - Extremities Exam Extremities exam: Present: warm, radial pulses palpable and symmetrical. Absent : calf tenderness, cyanotic, pedal edema - Neurological Exam Neurological exam: Present: CN II-XII intact, oriented X3, no focal deficits. Absent: pronater drift, facial droop, speech deficit - Skin Skin exam: Present: dry, intact Internal Medicine: Result - Labs CBC & Chem 7: 01/27/18 04:00 01/27/18 04:00 Labs: Short CBC 01/27/18 Range/Units 04:00 WBC 5.3 (4.3-11.1) K/mcL Hgb 10.0 L (11.5-15.4) g/dL Hct 29.0 L (35.3-44.9) % Plt Count 198 (140-400) K/mcL BMP 01/27/18 04:00 Sodium 140 Potassium 3.3 L Chloride 109 H Carbon Dioxide 24 BUN 16 Creatinine 0.89 Glucose 63 L Calcium 8.1 L Consult Discharge Plan - Plan Referrals: Jaylan Moran MD [Primary Care Provider] - 02/08/18 5:30 pm Joselin Robins CNP [Advanced Practice Nurse] - 02/03/18 11:15 am Conor Pretty DPM [Partnered Physician] - 02/08/18 11:15 am Kavin Velásquez MD [Partnered Physician] - 02/07/18 8:40 am
[2018-01-27] MEDS ORDERED: Ondansetron 4 MG/2 ML VIAL IVP PRN (17:43)
[2018-01-27] MEDS: lamoTRIgine 100 MG TABLET PO SCH (18:05)
[2018-01-27 21:23] LABS: Bilirubin,Urine Negative (Negative); Blood,Urine Negative (Negative); Clarity,Urine Cloudy (Clear); Color,Urine Yellow (Yellow); Glucose,Urine (UA) 100 mg/dL (Normal); Ketones,Urine Negative (Negative); Leukocyte Esterase,Urine Negative (Negative); Nitrite,Urine Negative (Negative); Protein,Urine Negative (Neg-Trace); Specific Gravity,Urine 1.009 (1.010-1.025); Urobilinogen,Urine Normal (Normal)
[2018-01-27 21:25] LABS: Bacteria,Urine Few per hpf (None-Few); Squamous Epithelial Cell,Urine Many per lpf (None-Few)
[2018-01-27 21:29] LABS: Hyaline Casts,Urine None Seen per lpf (None-Few)
[2018-01-27 21:30] LABS: Calcium Oxalate Crystals,Urine Present; Mucus,Urine Few (Few)
[2018-01-27] MEDS ORDERED: *HR* Heparin 5,000 UNIT/ML VIAL SQ SCH (22:00)
[2018-01-27 23:08] VITALS: BP 135/72
[2018-01-28] MEDS: OXYCODONE Oral CONC 10 MG/0.5 ML ORAL.SYG SL PRN (00:03)
[2018-01-28] MEDS ORDERED: Melatonin 3 MG TABLET PO PRN (00:11)
--- NOTE | 2018-01-28 00:26 | Event Note ---
Date of Encounter: 01/28/18 Time of Encounter: 00:25 Cross cover note Patient is AAO x 3 and decided to leave AMA after not given requested pain medicine. She has a long hx of drug seeking behavior and recurrent admission and drug abuse/misuse and visits to multiple hospital for drug seeking practices. We discussed risk > benefit and education provided about the current opiate crisis. She signed out AMA and therefore, an official discharge is unable to be completed
[2018-01-28] MEDS ORDERED: Aminoglycoside Consult 1 EACH MC ONE (00:40)
== END 2018-01-28 00:41 | disposition left against medical advice (07) | DRG 872 ==
LOC: EMEROO 09:39 → 3BNU 13:10
PROVIDERS: ADMIT Family Medicine; ATTEND Family Medicine

== ENCOUNTER 2018-03-20 22:55 | Inpatient (IN) ==
--- NOTE | 2018-03-21 00:01 | Emergency Department Note ---
Disposition Clinical Impression: Acute kidney injury DKA (diabetic ketoacidoses) Qualifiers: Diabetes mellitus type: type 1 Diabetes mellitus complication detail: without coma Qualified Code(s): E10.10 - Type 1 diabetes mellitus with ketoacidosis without coma Nausea & vomiting Qualifiers: Vomiting type: unspecified Vomiting Intractability: non-intractable Qualified Code(s): R11.2 - Nausea with vomiting, unspecified UTI (urinary tract infection) Qualifiers: Urinary tract infection type: acute cystitis Hematuria presence: with hematuria Qualified Code(s): N30.01 - Acute cystitis with hematuria Disposition: Admitted As Inpatient Condition: Critical Time of Disposition: 01:23 General Adult HPI - General Chief complaint: ED Nausea/Vomiting/Diarrhea Stated complaint: Urinary retention/Back Pain/Diabetic Probz Time Seen by Provider: 03/20/18 23:09 Source: patient Mode of arrival: ambulatory Limitations: no limitations Nursing Notes Reviewed: Yes Vital Signs Reviewed: Yes - History of Present Illness HPI Narrative: 37-year-old female type I diabetic on an insulin pump arrives to the emergency department with complaint of urinary retention as well as nausea, vomiting, abdominal pressure in her lower abdomen. The patient states that she was recently admitted to the hospital for DKA and urinary retention where she had a Valle catheter. The patient states that since then she is continued to experience some urinary retention and pressure when she is having urinate but states that over the past 12 hours she has been unable to urinate without pressure. The patient states that she also is worried about her blood glucose because she has been unable to control. Her glucoses have been running in the 600s which is unusual for her. The patient states that she is concerned she is starting to develop DKA. Patient states that she has been in DKA in the past. She denies any other complaints at this time including fevers, chills, cough, diarrhea, constipation, melena or hematochezia. Pain Scale: 7 - Related Data Home Medications Medication Instructions Recorded Confirmed Esomeprazole Magnesium [Nexium] 40 mg PO BID 01/20/18 01/26/18 Estradiol [Estradiol] 2 mg PO DAILY 01/20/18 01/26/18 FLUoxetine HCl [Fluoxetine HCl] 40 mg PO BID 01/20/18 01/26/18 LORazepam [Lorazepam] 2 mg PO TID PRN 01/20/18 01/26/18 Levomefolate/B6/B12/Algal Oil 1 cap PO BID 01/20/18 01/26/18 [Metanx Capsule] Lisinopril [Zestril] 10 mg PO DAILY 01/20/18 01/26/18 Ondansetron HCl [Ondansetron HCl] 4 mg PO BID PRN 01/20/18 01/26/18 Promethazine HCl 12.5 mg PO BID PRN 01/20/18 01/26/18 Rosuvastatin [Crestor] 20 mg PO HS 01/20/18 01/26/18 Subcutaneous Insulin Pump [T:Slim] 1 each MC ONCE 01/20/18 01/26/18 lamoTRIgine [Lamictal] 100 mg PO QAM 01/20/18 01/26/18 lamoTRIgine [Lamictal] 300 mg PO QPM 01/20/18 01/26/18 Previous Rx's Medication Instructions Recorded HYDROcodone/Acet 5/325 mg [[place] 1 tab PO Q6H PRN 2 Days #10 tab 01/22/18 5-325 mg] Promethazine [Phenergan] 25 mg PO Q6-8H PRN #12 tablet 01/22/18 Allergies Allergy/AdvReac Type Severity Reaction Status Date / Time acetaminophen [From Tylenol] Allergy Rash Verified 01/26/18 11:57 azithromycin Allergy Hives Verified 01/26/18 11:57 Cortisone Allergy Swelling Verified 01/26/18 11:57 of Lip/Tongue/Throat hydrocodone Allergy Anaphylaxis Verified 01/26/18 11:57 ketorolac [From Toradol] Allergy Swelling Verified 01/26/18 11:57 of Lip/Tongue/Throat latex Allergy Rash Verified 01/26/18 11:57 morphine Allergy Anaphylaxis Verified 01/26/18 11:57 NSAIDS (Non-Steroidal Allergy Swelling Verified 01/26/18 11:57 Anti-Inflamma of Lip/Tongue/Throat metoclopramide [From Reglan] AdvReac Vomiting Verified 01/26/18 11:57 tramadol [From Ultram] AdvReac Vomiting Verified 01/26/18 11:57 All systems ED: reviewed and negative except as stated. Constitutional: Reports: weakness. Denies: fever, chills ENT ED: Denies: dysphagia Cardiovascular: Denies: chest pain Respiratory: Denies: dyspnea Gastrointestinal: Reports: nausea, vomiting. Denies: abdominal pain, diarrhea, constipation, hematemesis, melena, hematochezia Genitourinary: Reports: urgency, dysuria. Denies: frequency, hematuria, discharge Musculoskeletal: Denies: back pain, neck pain Integumentary: Denies: rash Neurological: Denies: headache Past Medical History - Past Medical History Attestation: Yes The following information was validated with the patient. Source: patient Medical history: Reports: asthma, diabetes, GERD, hyperlipidemia, hypertension, other Surgical history: Reports: appendectomy, cholecystectomy, hysterectomy, knee replacement, other Psychiatric history: Reports: anxiety, depression, panic disorder [employer] history: Reports: other - Social History Smoking Status: Current every day smoker Smokeless Tobacco Status: No Alcohol use: Reports: none Drug use: Reports: none Physical Exam - General Limitations: no limitations General appearance: alert, in no apparent distress - Head Head exam: atraumatic, normocephalic, normal inspection - Eye Eye exam: Present: normal appearance, PERRL, EOMI - ENT ENT exam: normal exam, normal oropharynx, mucous membranes moist - Neck Neck exam: Present: normal inspection, full ROM, trachea midline - Chest Chest inspection: Present: normal inspection, symmetric chest wall rise - Respiratory Respiratory exam: Present: normal lung sounds bilaterally - Cardiovascular Cardiovascular exam: Present: regular rate, normal rhythm, normal heart sounds - Abdominal Exam Abdominal exam: Present: soft, tenderness (lower abdomen). Absent: distention, guarding, rebound, rigidity - Extremities Exam Extremities exam: Present: normal inspection, full ROM. Absent: tenderness, pedal edema - Neurological Exam Neurological exam: Present: alert, oriented X3 - Skin Skin exam: Present: warm, dry, intact, normal color Course Vital Signs Temperature 98.0 F 03/20/18 23:01 Pulse Rate 97 03/20/18 23:01 Respiratory Rate 14 03/20/18 23:01 Blood Pressure 127/74 03/20/18 23:01 O2 Sat by Pulse Oximetry 100 03/20/18 23:01 Temperature 98.0 F 03/20/18 23:35 Pulse Rate 97 03/20/18 23:35 Respiratory Rate 14 03/20/18 23:35 Blood Pressure 127/74 03/20/18 23:35 O2 Sat by Pulse Oximetry 100 03/20/18 23:35 Oxygen Delivery Oxygen Delivery Room Air Medical Decision Making - MDM Narrative Medical decision making narrative: Patient's workup in the emergency department demonstrates findings consistent with DKA. The patient was also found to have an acute kidney injury. Patient was administered 2 L of IV fluids as well as an insulin drip at 0.1 units per hour. The patient was administered Zofran as well as analgesic, phenyl. The patient has a potassium of 5.5. We will hold administration of IV potassium at this time due to elevation of potassium greater than 4.5. Patient had a bedside ultrasound which revealed urine within the bladder. The patient had a Valle placed here in the ED. The patient will be admitted to the hospital, likely to the ICU. Accepted by Dr. Le. - Lab Data Lab results reviewed: Yes I reviewed the patient's lab results. Result diagrams: 03/21/18 00:07 03/21/18 00:07 Lab Results 03/21/18 03/21/18 03/21/18 Range/Units 00:07 00:07 00:07 WBC 7.5 (4.3-11.1) K/mcL RBC 3.57 L (3.82-4.97) M/mcL Hgb 11.0 L (11.5-15.4) g/dL Hct 32.2 L (35.3-44.9) % MCV 90.2 (83.0-100.0) fL MCH 30.8 (28.0-33.3) pg MCHC 34.2 (31.6-35.5) g/dL RDW 13.5 (11.5-14.5) % Plt Count 145 (140-400) K/mcL MPV 10.7 (9.4-12.4) fL Immature Gran % 0.3 (0-4) % Seg Neutrophils % 74.0 % Lymphocytes % 19.7 % Monocytes % 2.7 % Eosinophils % 2.8 % Basophils % 0.5 % Neutrophils # 5.5 (1.6-8.9) K/mcL Lymphocytes # 1.5 (0.6-4.6) K/mcL Monocytes # 0.2 (0.0-1.3) K/mcL Eosinophils # 0.2 (0.0-0.6) K/mcL Basophils # 0.0 (0.0-0.2) K/mcL VBG pH (7.32-7.42) pH Units VBG pCO2 (41-51) mmHg VBG pO2 (25-50) mmHg VBG HCO3 (21-27) mEq/L Sodium 126 L (136-145) mEq/L Potassium 5.5 H (3.5-5.1) mEq/L Chloride 97 L (98-107) mEq/L Carbon Dioxide 22 L (23-29) mEq/L BUN 27 H (6-20) mg/dL Creatinine 1.74 H (0.60-1.20) mg/dL Est GFR ( Amer) 40 L (> 60) Est GFR (Non-Af Amer) 33 L (> 60) BUN/Creatinine Ratio 16 (6-26) Glucose 684 H* (70-105) mg/dL Calculated Osmolality 300 (280-300) Calcium 9.0 (8.6-10.3) mg/dL Total Bilirubin 0.5 (0.3-1.0) mg/dL AST 19 (13-39) Units/L ALT 19 (7-52) Units/L Alkaline Phosphatase 117 H (34-104) Units/L Troponin I < 0.03 (< 0.04) ng/mL Serum Total Protein 7.2 (6.4-8.9) g/dL Albumin 4.0 (3.5-5.7) g/dL Globulin 3.2 (2.4-3.5) g/dL Albumin/Globulin Ratio 1.3 (1.1-2.2) Beta-Hydroxybutyric Acd 0.48 H (0.02-0.27) mmol/L Urine Color (Yellow) Urine Clarity (Clear) Urine pH (5.0-8.0) pH Units Ur Specific [place] (1.010-1.025) Urine Protein (Neg-Trace) mg/dL Urine Glucose (UA) (Normal) mg/dL Urine Ketones (Negative) mg/dL Urine Blood (Negative) Urine Nitrite (Negative) Urine Bilirubin (Negative) Urine Urobilinogen (Normal) mg/dL Ur Leukocyte Esterase (Negative) Urine Microscopic RBC (0-3) per hpf Urine Microscopic WBC (0-3) per hpf Ur Squamous Epith Cells (None-Few) per lpf Urine Bacteria (None-Few) per hpf Hyaline Casts (None-Few) per lpf Ur Culture Indicated? (NO) Urine Test (Negative) 03/21/18 03/21/18 03/21/18 Range/Units 00:19 00:55 00:55 WBC (4.3-11.1) K/mcL RBC (3.82-4.97) M/mcL Hgb (11.5-15.4) g/dL Hct (35.3-44.9) % MCV (83.0-100.0) fL MCH (28.0-33.3) pg MCHC (31.6-35.5) g/dL RDW (11.5-14.5) % Plt Count (140-400) K/mcL MPV (9.4-12.4) fL Immature Gran % (0-4) % Seg Neutrophils % % Lymphocytes % % Monocytes % % Eosinophils % % Basophils % % Neutrophils # (1.6-8.9) K/mcL Lymphocytes # (0.6-4.6) K/mcL Monocytes # (0.0-1.3) K/mcL Eosinophils # (0.0-0.6) K/mcL Basophils # (0.0-0.2) K/mcL VBG pH 7.26 L (7.32-7.42) pH Units VBG pCO2 51 (41-51) mmHg VBG pO2 44 (25-50) mmHg VBG HCO3 23 (21-27) mEq/L Sodium (136-145) mEq/L Potassium (3.5-5.1) mEq/L Chloride (98-107) mEq/L Carbon Dioxide (23-29) mEq/L BUN (6-20) mg/dL Creatinine (0.60-1.20) mg/dL Est GFR ( Amer) (> 60) Est GFR (Non-Af Amer) (> 60) BUN/Creatinine Ratio (6-26) Glucose (70-105) mg/dL Calculated Osmolality (280-300) Calcium (8.6-10.3) mg/dL Total Bilirubin (0.3-1.0) mg/dL AST (13-39) Units/L ALT (7-52) Units/L Alkaline Phosphatase (34-104) Units/L Troponin I (< 0.04) ng/mL Serum Total Protein (6.4-8.9) g/dL Albumin (3.5-5.7) g/dL Globulin (2.4-3.5) g/dL Albumin/Globulin Ratio (1.1-2.2) Beta-Hydroxybutyric Acd (0.02-0.27) mmol/L Urine Color Yellow (Yellow) Urine Clarity Cloudy A (Clear) Urine pH 5.5 (5.0-8.0) pH Units Ur Specific [place] 1.026 H (1.010-1.025) Urine Protein Trace (Neg-Trace) mg/dL Urine Glucose (UA) >=1000 H (Normal) mg/dL Urine Ketones Negative (Negative) mg/dL Urine Blood Moderate H (Negative) Urine Nitrite Positive A (Negative) Urine Bilirubin Negative (Negative) Urine Urobilinogen Normal (Normal) mg/dL Ur Leukocyte Esterase Moderate H (Negative) Urine Microscopic RBC 3-5 H (0-3) per hpf Urine Microscopic WBC TNTC H (0-3) per hpf Ur Squamous Epith Cells None Seen (None-Few) per lpf Urine Bacteria Many H (None-Few) per hpf Hyaline Casts None Seen (None-Few) per lpf Ur Culture Indicated? YES A (NO) Urine Test Negative (Negative)
[2018-03-21 00:21] LABS: VBG HCO3 23 mEq/L (21-27); VBG PCO2 51 mmHg (41-51); VBG PH 7.26 pH Units (7.32-7.42); VBG PO2 44 mmHg (25-50)
[2018-03-21] MEDS ORDERED: *HR* FentaNYL (PF) 100 MCG/2 ML VIAL IVP ONE ×2 (00:31→03:07)
[2018-03-21] MEDS ORDERED: Ondansetron 4 MG/2 ML VIAL IVP ONE (00:31)
[2018-03-21 00:42] LABS: Alanine Aminotransferase 19 Units/L (7-52); Albumin/Globulin Ratio 1.3 (1.1-2.2); Alkaline Phosphatase 117 Units/L (34-104); Aspartate Amino Transferase 19 Units/L (13-39); BUN/Creatinine Ratio 16 (6-26); Bilirubin,Total 0.5 mg/dL (0.3-1.0); Blood Urea Nitrogen 27 mg/dL (6-20); Carbon Dioxide 22 mEq/L (23-29); Chloride 97 mEq/L (98-107); Globulin 3.2 g/dL (2.4-3.5); Glucose 684 mg/dL (70-105); Osmolality,Calculated 300 (280-300); Potassium 5.5 mEq/L (3.5-5.1); Sodium 126 mEq/L (136-145); Total Protein 7.2 g/dL (6.4-8.9); Troponin I < 0.03 ng/mL (< 0.04); eGFR For African Americans 40 (> 60); eGFR For Non-African Americans 33 (> 60)
[2018-03-21 00:45] LABS: Basophils % 0.5 %; Eosinophils # 0.2 K/mcL (0.0-0.6); Eosinophils % 2.8 %; Hematocrit 32.2 % (35.3-44.9); Immature Granulocytes % 0.3 % (0-4); Lymphocytes # 1.5 K/mcL (0.6-4.6); Lymphocytes % 19.7 %; Mean Corpuscular HGB Conc 34.2 g/dL (31.6-35.5); Mean Corpuscular Hemoglobin 30.8 pg (28.0-33.3); Mean Corpuscular Volume 90.2 fL (83.0-100.0); Mean Platelet Volume 10.7 fL (9.4-12.4); Monocytes # 0.2 K/mcL (0.0-1.3); Monocytes % 2.7 %; Neutrophils # 5.5 K/mcL (1.6-8.9); Platelet Count 145 K/mcL (140-400); Red Blood Count 3.57 M/mcL (3.82-4.97); Red Cell Distribution Width 13.5 % (11.5-14.5)
[2018-03-21] MEDS ORDERED: *HR* Dextrose 50 % in Water (Syg) 50 ML SYRINGE IVP PRN ×3 (00:47→11:46)
[2018-03-21] MEDS ORDERED: Insulin Human Regular 100 UNIT in 0.9 % Sodium Chloride 100 ML IVC SCH ×2 (01:00→02:00)
[2018-03-21] MEDS: 0.9 % Sodium Chloride 1,000 ML IVC SCH ×4 (01:01→05:49)
[2018-03-21 01:13] LABS: Bilirubin,Urine Negative (Negative); Blood,Urine Moderate (Negative); Clarity,Urine Cloudy (Clear); Color,Urine Yellow (Yellow); Glucose,Urine (UA) >=1000 mg/dL (Normal); Ketones,Urine Negative (Negative); Leukocyte Esterase,Urine Moderate (Negative); Nitrite,Urine Positive (Negative); PH,Urine 5.5 pH Units (5.0-8.0); Protein,Urine Trace mg/dL (Neg-Trace); Specific Gravity,Urine 1.026 (1.010-1.025); Urobilinogen,Urine Normal (Normal)
[2018-03-21 01:16] LABS: Bacteria,Urine Many per hpf (None-Few); Hyaline Casts,Urine None Seen per lpf (None-Few); Squamous Epithelial Cell,Urine None Seen per lpf (None-Few); WBC,Urine TNTC per hpf (0-3)
[2018-03-21] MEDS ORDERED: cefTRIAXone 1,000 MG in Water for inj. (sterile) 20 ML 10 ML IVP ONE (01:22)
--- NOTE | 2018-03-21 01:32 | Emergency Department Note ---
Disposition Clinical Impression: Acute kidney injury DKA (diabetic ketoacidoses) Qualifiers: Diabetes mellitus type: type 1 Diabetes mellitus complication detail: without coma Qualified Code(s): E10.10 - Type 1 diabetes mellitus with ketoacidosis without coma Nausea & vomiting Qualifiers: Vomiting type: unspecified Vomiting Intractability: non-intractable Qualified Code(s): R11.2 - Nausea with vomiting, unspecified UTI (urinary tract infection) Qualifiers: Urinary tract infection type: acute cystitis Hematuria presence: with hematuria Qualified Code(s): N30.01 - Acute cystitis with hematuria Disposition: Admitted As Inpatient Condition: Critical General Adult HPI - General Chief complaint: ED Nausea/Vomiting/Diarrhea Stated complaint: Urinary retention/Back Pain/Diabetic Probz Time Seen by Provider: 03/20/18 23:09 Source: patient Mode of arrival: ambulatory Limitations: no limitations Nursing Notes Reviewed: Yes Vital Signs Reviewed: Yes - History of Present Illness Pain Scale: 7 - Related Data Home Medications Medication Instructions Recorded Confirmed Esomeprazole Magnesium [Nexium] 40 mg PO BID 01/20/18 01/26/18 Estradiol [Estradiol] 2 mg PO DAILY 01/20/18 01/26/18 FLUoxetine HCl [Fluoxetine HCl] 40 mg PO BID 01/20/18 01/26/18 LORazepam [Lorazepam] 2 mg PO TID PRN 01/20/18 01/26/18 Levomefolate/B6/B12/Algal Oil 1 cap PO BID 01/20/18 01/26/18 [Metanx Capsule] Lisinopril [Zestril] 10 mg PO DAILY 01/20/18 01/26/18 Ondansetron HCl [Ondansetron HCl] 4 mg PO BID PRN 01/20/18 01/26/18 Promethazine HCl 12.5 mg PO BID PRN 01/20/18 01/26/18 Rosuvastatin [Crestor] 20 mg PO HS 01/20/18 01/26/18 Subcutaneous Insulin Pump [T:Slim] 1 each MC ONCE 01/20/18 01/26/18 lamoTRIgine [Lamictal] 100 mg PO QAM 01/20/18 01/26/18 lamoTRIgine [Lamictal] 300 mg PO QPM 01/20/18 01/26/18 Previous Rx's Medication Instructions Recorded HYDROcodone/Acet 5/325 mg [[place] 1 tab PO Q6H PRN 2 Days #10 tab 01/22/18 5-325 mg] Promethazine [Phenergan] 25 mg PO Q6-8H PRN #12 tablet 01/22/18 Allergies Allergy/AdvReac Type Severity Reaction Status Date / Time acetaminophen [From Tylenol] Allergy Rash Verified 01/26/18 11:57 azithromycin Allergy Hives Verified 01/26/18 11:57 Cortisone Allergy Swelling Verified 01/26/18 11:57 of Lip/Tongue/Throat hydrocodone Allergy Anaphylaxis Verified 01/26/18 11:57 ketorolac [From Toradol] Allergy Swelling Verified 01/26/18 11:57 of Lip/Tongue/Throat latex Allergy Rash Verified 01/26/18 11:57 morphine Allergy Anaphylaxis Verified 01/26/18 11:57 NSAIDS (Non-Steroidal Allergy Swelling Verified 01/26/18 11:57 Anti-Inflamma of Lip/Tongue/Throat metoclopramide [From Reglan] AdvReac Vomiting Verified 01/26/18 11:57 tramadol [From Ultram] AdvReac Vomiting Verified 01/26/18 11:57 Constitutional: Reports: weakness. Denies: fever, chills ENT ED: Denies: dysphagia Cardiovascular: Denies: chest pain Respiratory: Denies: dyspnea Gastrointestinal: Reports: nausea, vomiting. Denies: abdominal pain, diarrhea, constipation, hematemesis, melena, hematochezia Genitourinary: Reports: urgency, dysuria. 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 - Social History Smoking Status: Current every day smoker Smokeless Tobacco Status: No Alcohol use: Reports: none Drug use: Reports: none Physical Exam - General Limitations: no limitations General appearance: alert, in no apparent distress Course Vital Signs Temperature 98.0 F 03/20/18 23:01 Pulse Rate 97 03/20/18 23:01 Respiratory Rate 14 03/20/18 23:01 Blood Pressure 127/74 03/20/18 23:01 O2 Sat by Pulse Oximetry 100 03/20/18 23:01 Temperature 98.0 F 03/20/18 23:35 Pulse Rate 92 03/21/18 01:26 Respiratory Rate 16 03/21/18 01:26 Blood Pressure 111/51 03/21/18 01:26 O2 Sat by Pulse Oximetry 96 03/21/18 01:26 Oxygen Delivery Oxygen Delivery Room Air Medical Decision Making - Lab Data Lab results reviewed: Yes I reviewed the patient's lab results. Result diagrams: 03/21/18 00:07 03/21/18 00:07 Lab Results 03/21/18 03/21/18 03/21/18 Range/Units 00:07 00:07 00:07 WBC 7.5 (4.3-11.1) K/mcL RBC 3.57 L (3.82-4.97) M/mcL Hgb 11.0 L (11.5-15.4) g/dL Hct 32.2 L (35.3-44.9) % MCV 90.2 (83.0-100.0) fL MCH 30.8 (28.0-33.3) pg MCHC 34.2 (31.6-35.5) g/dL RDW 13.5 (11.5-14.5) % Plt Count 145 (140-400) K/mcL MPV 10.7 (9.4-12.4) fL Immature Gran % 0.3 (0-4) % Seg Neutrophils % 74.0 % Lymphocytes % 19.7 % Monocytes % 2.7 % Eosinophils % 2.8 % Basophils % 0.5 % Neutrophils # 5.5 (1.6-8.9) K/mcL Lymphocytes # 1.5 (0.6-4.6) K/mcL Monocytes # 0.2 (0.0-1.3) K/mcL Eosinophils # 0.2 (0.0-0.6) K/mcL Basophils # 0.0 (0.0-0.2) K/mcL VBG pH (7.32-7.42) pH Units VBG pCO2 (41-51) mmHg VBG pO2 (25-50) mmHg VBG HCO3 (21-27) mEq/L Sodium 126 L (136-145) mEq/L Potassium 5.5 H (3.5-5.1) mEq/L Chloride 97 L (98-107) mEq/L Carbon Dioxide 22 L (23-29) mEq/L BUN 27 H (6-20) mg/dL Creatinine 1.74 H (0.60-1.20) mg/dL Est GFR ( Amer) 40 L (> 60) Est GFR (Non-Af Amer) 33 L (> 60) BUN/Creatinine Ratio 16 (6-26) Glucose 684 H* (70-105) mg/dL Calculated Osmolality 300 (280-300) Calcium 9.0 (8.6-10.3) mg/dL Total Bilirubin 0.5 (0.3-1.0) mg/dL AST 19 (13-39) Units/L ALT 19 (7-52) Units/L Alkaline Phosphatase 117 H (34-104) Units/L Troponin I < 0.03 (< 0.04) ng/mL Serum Total Protein 7.2 (6.4-8.9) g/dL Albumin 4.0 (3.5-5.7) g/dL Globulin 3.2 (2.4-3.5) g/dL Albumin/Globulin Ratio 1.3 (1.1-2.2) Beta-Hydroxybutyric Acd 0.48 H (0.02-0.27) mmol/L Urine Color (Yellow) Urine Clarity (Clear) Urine pH (5.0-8.0) pH Units Ur Specific [place] (1.010-1.025) Urine Protein (Neg-Trace) mg/dL Urine Glucose (UA) (Normal) mg/dL Urine Ketones (Negative) mg/dL Urine Blood (Negative) Urine Nitrite (Negative) Urine Bilirubin (Negative) Urine Urobilinogen (Normal) mg/dL Ur Leukocyte Esterase (Negative) Urine Microscopic RBC (0-3) per hpf Urine Microscopic WBC (0-3) per hpf Ur Squamous Epith Cells (None-Few) per lpf Urine Bacteria (None-Few) per hpf Hyaline Casts (None-Few) per lpf Ur Culture Indicated? (NO) Urine Test (Negative) 03/21/18 03/21/18 03/21/18 Range/Units 00:19 00:55 00:55 WBC (4.3-11.1) K/mcL RBC (3.82-4.97) M/mcL Hgb (11.5-15.4) g/dL Hct (35.3-44.9) % MCV (83.0-100.0) fL MCH (28.0-33.3) pg MCHC (31.6-35.5) g/dL RDW (11.5-14.5) % Plt Count (140-400) K/mcL MPV (9.4-12.4) fL Immature Gran % (0-4) % Seg Neutrophils % % Lymphocytes % % Monocytes % % Eosinophils % % Basophils % % Neutrophils # (1.6-8.9) K/mcL Lymphocytes # (0.6-4.6) K/mcL Monocytes # (0.0-1.3) K/mcL Eosinophils # (0.0-0.6) K/mcL Basophils # (0.0-0.2) K/mcL VBG pH 7.26 L (7.32-7.42) pH Units VBG pCO2 51 (41-51) mmHg VBG pO2 44 (25-50) mmHg VBG HCO3 23 (21-27) mEq/L Sodium (136-145) mEq/L Potassium (3.5-5.1) mEq/L Chloride (98-107) mEq/L Carbon Dioxide (23-29) mEq/L BUN (6-20) mg/dL Creatinine (0.60-1.20) mg/dL Est GFR ( Amer) (> 60) Est GFR (Non-Af Amer) (> 60) BUN/Creatinine Ratio (6-26) Glucose (70-105) mg/dL Calculated Osmolality (280-300) Calcium (8.6-10.3) mg/dL Total Bilirubin (0.3-1.0) mg/dL AST (13-39) Units/L ALT (7-52) Units/L Alkaline Phosphatase (34-104) Units/L Troponin I (< 0.04) ng/mL Serum Total Protein (6.4-8.9) g/dL Albumin (3.5-5.7) g/dL Globulin (2.4-3.5) g/dL Albumin/Globulin Ratio (1.1-2.2) Beta-Hydroxybutyric Acd (0.02-0.27) mmol/L Urine Color Yellow (Yellow) Urine Clarity Cloudy A (Clear) Urine pH 5.5 (5.0-8.0) pH Units Ur Specific [place] 1.026 H (1.010-1.025) Urine Protein Trace (Neg-Trace) mg/dL Urine Glucose (UA) >=1000 H (Normal) mg/dL Urine Ketones Negative (Negative) mg/dL Urine Blood Moderate H (Negative) Urine Nitrite Positive A (Negative) Urine Bilirubin Negative (Negative) Urine Urobilinogen Normal (Normal) mg/dL Ur Leukocyte Esterase Moderate H (Negative) Urine Microscopic RBC 3-5 H (0-3) per hpf Urine Microscopic WBC TNTC H (0-3) per hpf Ur Squamous Epith Cells None Seen (None-Few) per lpf Urine Bacteria Many H (None-Few) per hpf Hyaline Casts None Seen (None-Few) per lpf Ur Culture Indicated? YES A (NO) Urine Test Negative (Negative) Critical Care Time Critical Care Time: Yes Total Critical Care Time: 40 Attestation: Critical care performed: Time is exclusive of separately billable procedures. Time includes: direct patient care, patient reassessment, coordination of patient care, interpretation of data (laboratory data, radiology data, and respiratory data), review of patient's medical records, medical consultation and documentation of patient care. Procedures included in critical care time: Procedures excluded from critical care time: Attestation Statement - Attestation Attestation: ISanya MD, personally evaluated this patient and discussed their management with the resident physician. I reviewed the resident's note and agree with the documented findings, medical decision making, and plan of care. 37-year-old female who is insulin-dependent diabetic on an insulin pump presents to the emergency department with a complaint of 2 day history of elevated blood sugars. She complains of some dysuria and difficulty urinating and urinary retention. She complains of generalized body aches. Some nausea and vomiting. She does have a prior history of DKA with similar symptoms. On examination patient is a well-developed well-nourished female in no acute distress. She is alert and oriented 3. There is no cyanosis or diaphoresis. Chest is nontender to palpation. Breath sounds are clear and equal bilaterally. Heart regular rate and rhythm with a 2/6 systolic murmur. Abdomen is soft with normal bowel sounds. Mild diffuse tenderness. No CVA tenderness. Labs reviewed. Consistent with mild DKA. Patient started on insulin drip. The hospitalist, Dr. Le, was consulted and accepted admission of the patient.
[2018-03-21] MEDS ORDERED: Naloxone 0.4 MG/ML INJ IVP PRN (01:48)
[2018-03-21] MEDS ORDERED: Insulin LISPRO 300 UNITS/3 ML VIAL SQ PRN ×2 (01:49)
[2018-03-21] MEDS ORDERED: D5% in 0.45% NACL 1,000 ML IVC PRN (01:49)
[2018-03-21] MEDS ORDERED: D5% in 0.45% NACL w KCl 20 MEQ/1,000 ML MLS IVC PRN (01:49)
[2018-03-21] MEDS ORDERED: Ondansetron 4 MG/2 ML VIAL IVP PRN (01:56)
--- NOTE | 2018-03-21 02:03 | Internal Med History&Physical ---
<Keven Velasquez - Last Filed: 03/21/18 02:42> Date of Encounter: 03/21/18 Time of Encounter: 02:03 Internal Medicine - H&P: HPI Chief complaint: Nausea vomiting Admitted From: Emergency Dept Plans for Post Hospital Care: Home History of present illness: Ms. Gaming is a 37 year old female type I diabetic on insulin pump, hypertension, anxiety, hypercholesterolemia presented to the emergency department complaining of urinary retention as well as nausea and vomiting abdominal pressure in her lower abdomen for approximately one 1 day. Patient had been admitted to the hospital recently for DKA. Patient states that time she did have a Valle catheter placed. She states she has been unable to urinate over 12 hours without pressure. She says her blood pressure has been difficult to control. Blood glucose is up and running in the 600s was not regular for her. She this time is not having any other complaints including fevers, chills, cough, diarrhea, constipation. Past Med Surg Social Fam HX - Past Medical History Medical history: asthma, diabetes, GERD, hyperlipidemia, hypertension, other Additional medical history: recurrent headaches. anxiety. GERD. CT spine, pelvis, lumbar. 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 Psychiatric history: anxiety, depression, panic disorder - Past Surgical History Surgical History: appendectomy, cholecystectomy, hysterectomy, knee replacement , other Additional surgical history: lap appy 2015. partial left knee replacement 2009. right shoulder rivas placement 2001. Hysterectomy & BSO 2010. c section 2009. left knee replacement 2014. CTR right and left hand trigger finger 2011- 2012 - Social History Smoking Status: Current every day smoker Smokeless Tobacco Status: No Alcohol use: none Drug use: none - Family History Mother Family Member Ethnicity: Non- Living Status: Still Living Hx Family Cardiac Disorders: Yes (HTN, HLD) Hx Family Respiratory Disorders: Yes (Asthma) Father Family Member Ethnicity: Non- Living Status: Still Living Hx Family Cardiac Disorders: Yes (HTN, HLD) Hx Family Respiratory Disorders: Yes Hx Family GI Disorders: Yes (cirrhosis) Hx Family Endocrine Disorder: Yes (Cirrhosis) Hx Family Autoimmune Disorders: Yes (Alkylosing Spondylitis) Brother Family Member Ethnicity: Non- Living Status: Still Living Hx Family Endocrine Disorder: Yes (Pancreatitis, Cirrhosis) Sister Family Member Ethnicity: Non- Living Status: Still Living Grandfather Family Member Ethnicity: Non- Living Status: Hx Family Cardiac Disorders: Yes (LA, Stroke) Hx Family Endocrine Disorder: Yes (DM) Internal Medicine - H&P: Meds Esomeprazole Magnesium [Nexium] 40 mg PO BID 01/20/18 [History] Estradiol [Estradiol] 2 mg PO DAILY 01/20/18 [History] FLUoxetine HCl [Fluoxetine HCl] 40 mg PO BID 01/20/18 [History] LORazepam [Lorazepam] 2 mg PO TID PRN 01/20/18 [History] Levomefolate/B6/B12/Algal Oil [Metanx Capsule] 1 cap PO BID 01/20/18 [History] Lisinopril [Zestril] 10 mg PO DAILY 01/20/18 [History] Ondansetron HCl [Ondansetron HCl] 4 mg PO BID PRN 01/20/18 [History] Promethazine HCl 12.5 mg PO BID PRN 01/20/18 [History] Rosuvastatin [Crestor] 20 mg PO HS 01/20/18 [History] Subcutaneous Insulin Pump [T:Slim] 1 each MC ONCE 01/20/18 [History] lamoTRIgine [Lamictal] 100 mg PO QAM 01/20/18 [History] lamoTRIgine [Lamictal] 300 mg PO QPM 01/20/18 [History] HYDROcodone/Acet 5/325 mg [Alvin 5-325 mg] 1 tab PO Q6H PRN 2 Days #10 tab 01/22 [Rx] Promethazine [Phenergan] 25 mg PO Q6-8H PRN #12 tablet 01/22/18 [Rx] 3 Allergy/AdvReac Type Severity Reaction Status Date / Time acetaminophen [From Tylenol] Allergy Rash Verified 01/26/18 11:57 azithromycin Allergy Hives Verified 01/26/18 11:57 Cortisone Allergy Swelling Verified 01/26/18 11:57 of Lip/Tongue/Throat hydrocodone Allergy Anaphylaxis Verified 01/26/18 11:57 ketorolac [From Toradol] Allergy Swelling Verified 01/26/18 11:57 of Lip/Tongue/Throat latex Allergy Rash Verified 01/26/18 11:57 morphine Allergy Anaphylaxis Verified 01/26/18 11:57 NSAIDS (Non-Steroidal Allergy Swelling Verified 01/26/18 11:57 Anti-Inflamma of Lip/Tongue/Throat metoclopramide [From Reglan] AdvReac Vomiting Verified 01/26/18 11:57 tramadol [From Ultram] AdvReac Vomiting Verified 01/26/18 11:57 All Systems PM: A 10-system review of systems was performed and is negative for pertinent findings except as documented above in the HPI. - Constitutional Constitutional: no chills, no fever(s), no night sweats - EENT Eyes: no change in vision, no discharge, no pain, no photophobia - Cardiovascular Cardiovascular ROS IM: no chest pain, no diaphoresis, no dyspnea, no lightheadedness, no palpitations, no syncope - Respiratory Respiratory: no cough, no dyspnea, no wheezing, no excessive phlegm production - Gastrointestinal Gastrointestinal: nausea, vomiting, no abdominal pain, no diarrhea, no hematemesis, no hematochezia, no melena - Genitourinary Genitourinary: difficulty urinating, no change in urinary stream, no dysuria, no flank pain, no hematuria - Musculoskeletal Musculoskeletal ROS IM: no numbness, no tingling - Integumentary Integumentary IM: no rash, no unusual bruising - Neurological Neurological ROS: no confusion, no convulsions, no focal weakness, no numbness, no tingling, no tremor(s) - Hematologic/Lymphatic Hematologic/Lymphatic: no easy bruising - Constitutional Vitals: Temp Pulse Resp BP Pulse Ox 98.0 F 92 17 102/65 98 03/20/18 23:35 03/21/18 01:47 03/21/18 01:47 03/21/18 01:47 03/21/18 01:47 General appearance: Present: A&O X 3, no acute distress - Head Head exam: Present: atraumatic, normocephalic - Eye Eye exam: Present: PERRL, conjuntiva pink, sclera anicteric Pupils: Present: PERRL - Neck Neck exam general surgery: Present: supple, trachea midline. Absent: lymphadenopathy - Respiratory Respiratory exam: Present: CTAB. Absent: accessory muscle use, rales, rhonchi, wheezes - Cardiovascular Cardiovascular exam: Present: RRR, +S1, +S2. Absent: diastolic murmur, gallop, rubs, systolic murmur - GI/Abdominal GI/Abdominal exam: Present: normal bowel sounds, soft, no peritoneal signs. Absent: distended, tenderness - Extremities Exam Extremities exam: Present: warm, radial pulses palpable and symmetrical. Absent : calf tenderness, cyanotic, pedal edema - Neurological Exam Neurological exam: Present: CN II-XII intact, oriented X3, no focal deficits, strengths equal and symetr throughout. Absent: pronater drift, facial droop, speech deficit - Skin Skin exam: Present: dry, intact Internal Med - H&P Results - Labs CBC & Chem 7: 03/21/18 00:07 03/21/18 00:07 - Assessment and plan (1) DKA (diabetic ketoacidoses) Current Visit: Yes Status: Acute Assessment and plan: Patient does have type 1 diabetes she has insulin-dependent with a insulin pump. After returning to the emergency department patient did have insulin pump stopped. Patient did receive 3 L of IV fluid bolus in the emergency department as well as an insulin drip was given. Patient's initial glucose was up over 600 and right is 684. Patient at first did not have an anion gap but with the corrected sodium of 136 did have an anion gap of 17. Patient VBG also showed acidosis of 7.26. Patient did have an acute kidney injury. Creatinine was 1.74. Most likely source of patient's DKA is UTIs patient did have nitrite positive urine this is being treated with Rocephin. Patient did have recent hospitalization where she had a Valle catheter placed this most likely is the source of the infection. Insulin and IV replacement per DKA protocol. Once gap closes and patient's glucose normalizes we will have patient ate and change to a insulin pump to have patient's insulin controlled on that. Qualifiers: Diabetes mellitus type: type 1 Diabetes mellitus complication detail: without coma Qualified Code(s): E10.10 - Type 1 diabetes mellitus with ketoacidosis without coma (2) UTI (urinary tract infection) Current Visit: Yes Status: Acute Assessment and plan: Patient does have a UTI as she was nitrite positive with bacteria and leukocytes. Patient had recent Valle catheter. Placement from recent admission for DKA. This could be early pyelonephritis but this time patient does not have much flank pain we will continue to monitor patient's creatinine is is mildly elevated at 1.74. IV fluid should help with the UTI as well as getting antibiotics. Rocephin given in the ER and continued here daily. Qualifiers: Urinary tract infection type: acute cystitis Hematuria presence: with hematuria Qualified Code(s): N30.01 - Acute cystitis with hematuria (3) Acute kidney injury Current Visit: Yes Status: Acute Assessment and plan: Patient does have acute kidney injury of 1.74 creatinine. This was likely secondary to patient's UTI this could be early pyelonephritis. We will continue to monitor with daily BMPs. IV fluid should help with patient's AK I IV fluids (4) GERD (gastroesophageal reflux disease) Current Visit: No Status: Chronic Assessment and plan: Restart home medications Qualifiers: Esophagitis presence: esophagitis presence not specified Qualified Code(s) : K21.9 - Gastro-esophageal reflux disease without esophagitis (5) Urinary retention Current Visit: No Status: Acute Assessment and plan: Patient's urinary retention is mostly secondary to patient's UTI this being treated with Rocephin. This should normalize once patient becomes better hydrated DKA resolves and UTI was treated with antibiotics. (6) Hypertension Current Visit: No Status: Chronic Assessment and plan: Not hypertensive at this time Restart home medications Qualifiers: Hypertension type: essential hypertension Qualified Code(s): I10 - Essential (primary) hypertension (7) DVT prophylaxis Current Visit: No Status: Acute Assessment and plan: Heparin 5000 units subcutaneous twice a day - Time Spent With Patient Total time spent is greater than 50% in coordination of care (as documented) at patient's floor/unit and/or counseling patient: <Chelsy Chand - Last Filed: 03/21/18 04:42> Date of Encounter: 03/21/18 Internal Medicine - H&P: HPI History of present illness: Ms. Gaming is a 37 year old female All Systems PM: A 10-system review of systems was performed and is negative for pertinent findings except as documented above in the HPI. - Constitutional Vitals: Temp Pulse Resp BP Pulse Ox 98.2 F 85 13 118/73 97 03/21/18 02:00 03/21/18 04:26 03/21/18 04:00 03/21/18 04:00 03/21/18 04:00 Internal Med - H&P Results - Labs CBC & Chem 7: 03/21/18 03:00 03/21/18 04:00 Labs: Short CBC 03/21/18 Range/Units 03:00 WBC 6.5 (4.3-11.1) K/mcL Hgb 10.4 L (11.5-15.4) g/dL Hct 30.6 L (35.3-44.9) % Plt Count 142 (140-400) K/mcL Neutrophils # 4.6 (1.6-8.9) K/mcL BMP 03/21/18 03/21/18 03:00 04:00 Sodium 130 L 133 L Potassium 4.6 4.1 Chloride 104 106 Carbon Dioxide 18 L 23 BUN 24 H 24 H Creatinine 1.41 H 1.39 H Glucose 597 H* 465 H Calcium 8.0 L 8.3 L - ABG Interpretation ABG results: 03/21/18 03:08 VBG pH 7.25 L VBG pCO2 47 VBG pO2 136 H VBG HCO3 21 - Attending Attestation I have seen and examined this patient independently. I have discussed with resident physician Dr. Velasquez regarding the management plan. Agree with the documentation. - Time Spent With Patient Total time spent is greater than 50% in coordination of care (as documented) at patient's floor/unit and/or counseling patient:
[2018-03-21 03:11] LABS: Basophils % 0.3 %; Eosinophils # 0.2 K/mcL (0.0-0.6); Eosinophils % 3.4 %; Hematocrit 30.6 % (35.3-44.9); Hemoglobin 10.4 g/dL (11.5-15.4); Immature Granulocytes % 0.2 % (0-4); Lymphocytes # 1.4 K/mcL (0.6-4.6); Mean Corpuscular Hemoglobin 30.7 pg (28.0-33.3); Mean Corpuscular Volume 90.3 fL (83.0-100.0); Mean Platelet Volume 10.1 fL (9.4-12.4); Monocytes # 0.2 K/mcL (0.0-1.3); Monocytes % 3.7 %; Neutrophils # 4.6 K/mcL (1.6-8.9); Platelet Count 142 K/mcL (140-400); Red Blood Count 3.39 M/mcL (3.82-4.97); Red Cell Distribution Width 13.3 % (11.5-14.5); Segmented Neutrophils % 71.4 %
[2018-03-21 03:13] LABS: VBG HCO3 21 mEq/L (21-27); VBG PCO2 47 mmHg (41-51); VBG PH 7.25 pH Units (7.32-7.42); VBG PO2 136 mmHg (25-50)
[2018-03-21] MEDS: *HR* LORazepam 1 MG TABLET PO PRN ×2 (03:13→12:32)
[2018-03-21 03:32] LABS: Magnesium 1.4 mg/dL (1.6-2.6); Phosphorous 2.5 mg/dL (2.7-4.5); Potassium 4.6 mEq/L (3.5-5.1)
[2018-03-21] MEDS: 0.45 % Sodium Chloride w/KCl 20 MEQ/1,000 ML MLS IVC SCH ×7 (04:09→05:49)
[2018-03-21 04:34] LABS: Calcium 8.3 mg/dL (8.6-10.3); Potassium 4.1 mEq/L (3.5-5.1)
[2018-03-21] MEDS ORDERED: *HR* Promethazine 25 MG/ML VIAL IVP ONE (04:43)
[2018-03-21] MEDS: *HR* Heparin 5,000 UNIT/ML VIAL SQ SCH ×2 (05:06→19:05)
[2018-03-21] MEDS ORDERED: cefTRIAXone 1,000 MG in Water for inj. (sterile) 20 ML 10 ML IVP SCH (09:00)
[2018-03-21] MEDS ORDERED: *HR* OxyCODONE Immed Rel 5 MG TABLET PO PRN (11:45)
[2018-03-21] MEDS ORDERED: Dextrose Gel 15 GM/37.5 ML TUBE PO PRN ×2 (11:46)
[2018-03-21] MEDS ORDERED: D5% in Water 1,000 ML IVC PRN (11:46)
[2018-03-21] MEDS ORDERED: Insulin DETEMIR 100 UNIT/ML X5UNITS SQ SCH (11:55)
[2018-03-21] MEDS: Insulin LISPRO 300 UNITS/3 ML VIAL SQ SCH ×2 (11:56→15:36)
[2018-03-21] MEDS ORDERED: *HR* Promethazine 25 MG/ML VIAL IVP PRN (12:16)
[2018-03-21] MEDS ORDERED: *HR* LORazepam 1 MG TABLET PO PRN (12:47)
[2018-03-21 13:23] LABS: Estimated Average Glucose 194 mg/dl; Hemoglobin A1C 8.4 %
[2018-03-21] MEDS ORDERED: Insulin LISPRO 300 UNITS/3 ML VIAL SQ SCH ×2 (16:30→21:00)
[2018-03-21 19:30] VITALS: BP 127/85
== END 2018-03-21 20:01 | disposition left against medical advice (07) | DRG 638 ==
LOC: EMEROO 22:55 → ICNU 22:55 → 3ANU 03-21 16:52
PROVIDERS: ADMIT Internal Medicine; ATTEND Internal Medicine

== ENCOUNTER 2018-03-22 23:16 | Observation (INO) ==
[2018-03-23] MEDS ORDERED: *HR* FentaNYL (PF) 100 MCG/2 ML VIAL IVP ONE ×3 (00:28→12:13)
[2018-03-23] MEDS ORDERED: 0.9 % Sodium Chloride 1,000 ML IVC ONE ×3 (00:28→05:24)
[2018-03-23 00:32] LABS: Bilirubin,Urine Negative (Negative); Blood,Urine Small (Negative); Clarity,Urine Clear (Clear); Color,Urine Yellow (Yellow); Glucose,Urine (UA) >=1000 mg/dL (Normal); Ketones,Urine Negative (Negative); Leukocyte Esterase,Urine Negative (Negative); Nitrite,Urine Negative (Negative); PH,Urine 6.5 pH Units (5.0-8.0); Protein,Urine Negative (Neg-Trace); Specific Gravity,Urine 1.024 (1.010-1.025); Urobilinogen,Urine Normal (Normal)
[2018-03-23] MEDS ORDERED: Ondansetron 4 MG/2 ML VIAL IVP ONE ×2 (00:35→04:13)
[2018-03-23 00:37] LABS: Bacteria,Urine None Seen per hpf (None-Few); Hyaline Casts,Urine None Seen per lpf (None-Few); Squamous Epithelial Cell,Urine Many per lpf (None-Few)
[2018-03-23 00:42] LABS: Basophils % 0.4 %; Eosinophils # 0.1 K/mcL (0.0-0.6); Eosinophils % 1.7 %; Hemoglobin 10.7 g/dL (11.5-15.4); Immature Granulocytes % 0.1 % (0-4); Lymphocytes # 0.8 K/mcL (0.6-4.6); Mean Corpuscular HGB Conc 34.5 g/dL (31.6-35.5); Mean Corpuscular Hemoglobin 30.3 pg (28.0-33.3); Mean Corpuscular Volume 87.8 fL (83.0-100.0); Mean Platelet Volume 9.9 fL (9.4-12.4); Monocytes # 0.2 K/mcL (0.0-1.3); Monocytes % 2.2 %; Neutrophils # 5.8 K/mcL (1.6-8.9); Platelet Count 174 K/mcL (140-400); Red Blood Count 3.53 M/mcL (3.82-4.97); Red Cell Distribution Width 13.4 % (11.5-14.5); Segmented Neutrophils % 84.6 %
[2018-03-23 01:17] LABS: Alanine Aminotransferase 16 Units/L (7-52); Albumin 3.8 g/dL (3.5-5.7); Albumin/Globulin Ratio 1.2 (1.1-2.2); Alkaline Phosphatase 105 Units/L (34-104); Aspartate Amino Transferase 21 Units/L (13-39); BUN/Creatinine Ratio 16 (6-26); Bilirubin,Direct 0.1 mg/dL (0.0-0.2); Bilirubin,Indirect 0.4 mg/dL (0.0-1.2); Bilirubin,Total 0.5 mg/dL (0.3-1.0); Blood Urea Nitrogen 15 mg/dL (6-20); Calcium 8.9 mg/dL (8.6-10.3); Carbon Dioxide 24 mEq/L (23-29); Chloride 101 mEq/L (98-107); Globulin 3.2 g/dL (2.4-3.5); Glucose 500 mg/dL (70-105); Lipase 5 Units/L (11-82); Osmolality,Calculated 297 (280-300); Potassium 4.4 mEq/L (3.5-5.1); Sodium 132 mEq/L (136-145); eGFR For Non-African Americans > 60 (> 60)
[2018-03-23] MEDS ORDERED: *HR* Promethazine 25 MG/ML VIAL IVP ONE (01:30)
[2018-03-23] MEDS ORDERED: *HR* Morphine Immed Rel 30 MG TABLET PO ONE (01:30)
--- NOTE | 2018-03-23 02:48 | Emergency Department Note ---
Disposition Clinical Impression: Hyperglycemia without ketosis Disposition: Still a Patient Condition: Good Referrals: Jaylan Moran MD [Primary Care Provider] - Forms: ED Satisfaction Letter, Work/School Release General Adult HPI - General Chief complaint: ED General Medical Stated complaint: multiple complaints Time Seen by Provider: 03/22/18 23:43 Source: patient Mode of arrival: private vehicle Limitations: no limitations Nursing Notes Reviewed: Yes Vital Signs Reviewed: Yes - History of Present Illness HPI Narrative: 7-year-old female with a history of asthma, hypertension, hyperlipidemia, diabetes type 1, gastroparesis presents emergency department for evaluation of inability to urinate, nausea, vomiting and blood sugar elevation. Patient was admitted on 03/20 for elevated glucose, she was on an insulin drip. She left AMA on 03/21 due to "thought everything was okay when they took the Valle out". She states after Valle catheter removal she has not urinated since then. She complains of severe nausea and vomiting along with pain in her bladder radiating to her kidneys bilaterally. Patient also complains of a moist cough since 03/20 and is productive with mucus. She does state that she thinks she may have had some fevers but she denies chills, diarrhea. Onset (ago): day(s) Location: abdomen Radiation: flank Pain Severity: moderate, severe Pain Scale: 8 Quality: aching, sharp Consistency: constant, intermittent Treatments Prior to Arrival: none - Related Data Home Medications Medication Instructions Recorded Confirmed Esomeprazole Magnesium [Nexium] 40 mg PO BID 01/20/18 03/21/18 Estradiol [Estradiol] 2 mg PO DAILY 01/20/18 03/21/18 LORazepam [Lorazepam] 2 mg PO TID PRN 01/20/18 03/21/18 Levomefolate/B6/B12/Algal Oil 1 cap PO BID 01/20/18 03/21/18 [Metanx Capsule] Lisinopril [Zestril] 10 mg PO DAILY 01/20/18 03/21/18 Promethazine HCl 12.5 mg PO TID 01/20/18 03/21/18 Rosuvastatin [Crestor] 20 mg PO HS 01/20/18 03/21/18 Subcutaneous Insulin Pump [T:Slim] 1 each MC ONCE 01/20/18 03/21/18 Cholecalciferol (Vitamin D3) 800 unit PO DAILY 03/21/18 03/21/18 [Vitamin D3] Gabapentin [Neurontin] 100 mg PO HS 03/21/18 03/21/18 Orphenadrine Citrate 100 mg PO BID 03/21/18 03/21/18 Quetiapine Fumarate [Seroquel] 50 - 200 mg PO HS PRN 03/21/18 03/21/18 Allergies Allergy/AdvReac Type Severity Reaction Status Date / Time acetaminophen [From Tylenol] Allergy Rash Verified 01/26/18 11:57 azithromycin Allergy Hives Verified 01/26/18 11:57 Cortisone Allergy Swelling Verified 01/26/18 11:57 of Lip/Tongue/Throat hydrocodone Allergy Anaphylaxis Verified 01/26/18 11:57 ketorolac [From Toradol] Allergy Swelling Verified 01/26/18 11:57 of Lip/Tongue/Throat latex Allergy Rash Verified 01/26/18 11:57 morphine Allergy Anaphylaxis Verified 01/26/18 11:57 NSAIDS (Non-Steroidal Allergy Swelling Verified 01/26/18 11:57 Anti-Inflamma of Lip/Tongue/Throat metoclopramide [From Reglan] AdvReac Vomiting Verified 01/26/18 11:57 tramadol [From Ultram] AdvReac Vomiting Verified 01/26/18 11:57 All systems ED: reviewed and negative except as stated. Review of Systems: As Per HPI Past Medical History - Past Medical History Attestation: Yes The following information was validated with the patient. Source: patient Medical history: Reports: asthma, diabetes, GERD, hyperlipidemia, hypertension, other Surgical history: Reports: appendectomy, cholecystectomy, hysterectomy, knee replacement, other Psychiatric history: Reports: anxiety, depression, panic disorder MANAGER BILINGUAL history: Reports: other - Social History Smoking Status: Current every day smoker Smokeless Tobacco Status: No Alcohol use: Reports: none Drug use: Reports: none Physical Exam - General Limitations: no limitations General appearance: alert, in no apparent distress - Head Head exam: atraumatic, normocephalic, normal inspection - Eye Eye exam: Present: normal appearance. Absent: conjunctival injection - ENT ENT exam: mucous membranes moist - Neck Neck exam: Present: normal inspection, full ROM, trachea midline - Chest Chest inspection: Present: normal inspection, symmetric chest wall rise - Respiratory Respiratory exam: Present: normal lung sounds bilaterally - Cardiovascular Cardiovascular exam: Present: regular rate, normal rhythm, normal heart sounds - Abdominal Exam Abdominal exam: Present: soft, tenderness, normal bowel sounds Abdominal tenderness: Present: suprapubic - Extremities Exam Extremities exam: Present: normal inspection, full ROM. Absent: tenderness, pedal edema - Expanded Lower Extremity Exam Gait: observed and normal - Back Exam Back exam: Present: normal inspection, full ROM. Absent: tenderness - Neurological Exam Neurological exam: Present: alert, oriented X3 - Psychiatric Psychiatric exam: Present: normal affect, normal mood - Skin Skin exam: Present: warm, dry, intact, normal color Course Course Narrative: Nontoxic appearing female. Respirations are easy and even. She is neurologically intact. She is laying on the medical record on her head. Physical exam reveals suprapubic tenderness with palpation. Lungs clear to auscultate. Glucose elevated. Valle catheter placed for urinary retention with immediate removal of 700 milliliters clear/yellow urine. Patient does state relief. CBC and BMP are benign with a potassium of 4.4, NA 132, GFR >60, we will run a liter of fluids and evaluate. We will draw a VBG as well as a BHA to assess for acidosis. - Reevaluation(s) Reevaluation #1: Patient resting quietly, she has been noted with several episodes of emesis. Patient has had 2 L of fluid and blood glucose continues to be 547. Her anion gap is 7, VBG returns within normal limits, BHA 1.48. Patient is not acidotic at this time. She does have hyperglycemia. We will give 18 units subcutaneous insulin and reevaluate. Chest x-ray returns negative. Has been no change in physical assessment. Patient is continually asked for pain medications, she has refused hydroxyzine. Patient has had 50 of Fentynyl, and immediate release morphine. She has been given multiple doses of anti-medic medications. Patient refusing all medication with the exception of narcotics and antibiotics. Discussion with patient regarding the use of narcotic medication, current allergies, indication for use. Time: 05:03 Reevaluation #2: Patient resting quietly, she has not had any further episodes of emesis. Dr. Prakash has had one-on-one face time with patient is agreeable to plan of care. We will give another liter of normal saline and subcutaneous insulin, a recheck insulin. Case will be turned over to [employer] CHRISTINE Selma Henderson CNP for further care. Time: 05:40 Vital Signs Temperature 99.3 F 03/22/18 23:19 Pulse Rate 93 03/22/18 23:19 Respiratory Rate 20 03/22/18 23:19 Blood Pressure 181/89 03/22/18 23:19 O2 Sat by Pulse Oximetry 100 03/22/18 23:19 Temperature 99.3 F 03/22/18 23:19 Pulse Rate 77 03/23/18 05:12 Respiratory Rate 18 03/23/18 05:12 Blood Pressure 155/73 03/23/18 05:12 O2 Sat by Pulse Oximetry 98 03/23/18 05:12 Oxygen Delivery Oxygen Delivery Room Air Medical Decision Making - Medical Records Medical records reviewed: Yes I reviewed the patient's medical records. - Lab Data Lab results reviewed: Yes I reviewed the patient's lab results. Result diagrams: 03/23/18 00:30 03/23/18 00:30 Lab Results 03/23/18 03/23/18 03/23/18 Range/Units 00:06 00:30 00:30 WBC 6.9 (4.3-11.1) K/mcL RBC 3.53 L (3.82-4.97) M/mcL Hgb 10.7 L (11.5-15.4) g/dL Hct 31.0 L (35.3-44.9) % MCV 87.8 (83.0-100.0) fL MCH 30.3 (28.0-33.3) pg MCHC 34.5 (31.6-35.5) g/dL RDW 13.4 (11.5-14.5) % Plt Count 174 (140-400) K/mcL MPV 9.9 (9.4-12.4) fL Immature Gran % 0.1 (0-4) % Seg Neutrophils % 84.6 % Lymphocytes % 11.0 % Monocytes % 2.2 % Eosinophils % 1.7 % Basophils % 0.4 % Neutrophils # 5.8 (1.6-8.9) K/mcL Lymphocytes # 0.8 (0.6-4.6) K/mcL Monocytes # 0.2 (0.0-1.3) K/mcL Eosinophils # 0.1 (0.0-0.6) K/mcL Basophils # 0.0 (0.0-0.2) K/mcL VBG pH (7.32-7.42) pH Units VBG pCO2 (41-51) mmHg VBG pO2 (25-50) mmHg VBG HCO3 (21-27) mEq/L VBG Total CO2 mEq/L VBG O2 Saturation % VBG Base Excess mEq/L Venous Sodium (135-145) mEq/L Sodium 132 L (136-145) mEq/L Venous Potassium (3.5-5.5) mEq/L Potassium 4.4 (3.5-5.1) mEq/L Venous Chloride (98-107) mEq/L Chloride 101 (98-107) mEq/L Carbon Dioxide 24 (23-29) mEq/L BUN 15 (6-20) mg/dL Creatinine 0.94 (0.60-1.20) mg/dL Est GFR ( Amer) > 60 (> 60) Est GFR (Non-Af Amer) > 60 (> 60) BUN/Creatinine Ratio 16 (6-26) Glucose 500 H* (70-105) mg/dL Whole Bld Glucose (65-95) mg/dl Calculated Osmolality 297 (280-300) Calcium 8.9 (8.6-10.3) mg/dL Venous Ioniz Calcium (1.15-1.35) mmol/L Total Bilirubin 0.5 (0.3-1.0) mg/dL Direct Bilirubin 0.1 (0.0-0.2) mg/dL Indirect Bilirubin 0.4 (0.0-1.2) mg/dL AST 21 (13-39) Units/L ALT 16 (7-52) Units/L Alkaline Phosphatase 105 H (34-104) Units/L Serum Total Protein 7.0 (6.4-8.9) g/dL Albumin 3.8 (3.5-5.7) g/dL Globulin 3.2 (2.4-3.5) g/dL Albumin/Globulin Ratio 1.2 (1.1-2.2) Lipase 5 L (11-82) Units/L Beta-Hydroxybutyric Acd (0.02-0.27) mmol/L Urine Color Yellow (Yellow) Urine Clarity Clear (Clear) Urine pH 6.5 (5.0-8.0) pH Units Ur Specific [place] 1.024 (1.010-1.025) Urine Protein Negative (Neg-Trace) mg/dL Urine Glucose (UA) >=1000 H (Normal) mg/dL Urine Ketones Negative (Negative) mg/dL Urine Blood Small H (Negative) Urine Nitrite Negative (Negative) Urine Bilirubin Negative (Negative) Urine Urobilinogen Normal (Normal) mg/dL Ur Leukocyte Esterase Negative (Negative) Urine Microscopic RBC 5-15 H (0-3) per hpf Urine Microscopic WBC 3-5 H (0-3) per hpf Ur Squamous Epith Cells Many H (None-Few) per lpf Urine Bacteria None Seen (None-Few) per hpf Hyaline Casts None Seen (None-Few) per lpf Ur Culture Indicated? NO (NO) Person Notif of Crit 03/23/18 03/23/18 Range/Units 03:56 04:06 WBC (4.3-11.1) K/mcL RBC (3.82-4.97) M/mcL Hgb (11.5-15.4) g/dL Hct (35.3-44.9) % MCV (83.0-100.0) fL MCH (28.0-33.3) pg MCHC (31.6-35.5) g/dL RDW (11.5-14.5) % Plt Count (140-400) K/mcL MPV (9.4-12.4) fL Immature Gran % (0-4) % Seg Neutrophils % % Lymphocytes % % Monocytes % % Eosinophils % % Basophils % % Neutrophils # (1.6-8.9) K/mcL Lymphocytes # (0.6-4.6) K/mcL Monocytes # (0.0-1.3) K/mcL Eosinophils # (0.0-0.6) K/mcL Basophils # (0.0-0.2) K/mcL VBG pH 7.33 (7.32-7.42) pH Units VBG pCO2 45 (41-51) mmHg VBG pO2 49 (25-50) mmHg VBG HCO3 24 (21-27) mEq/L VBG Total CO2 25 mEq/L VBG O2 Saturation 82 % VBG Base Excess -2 mEq/L Venous Sodium 134 L (135-145) mEq/L Sodium (136-145) mEq/L Venous Potassium 5.4 (3.5-5.5) mEq/L Potassium (3.5-5.1) mEq/L Venous Chloride 101 (98-107) mEq/L Chloride (98-107) mEq/L Carbon Dioxide (23-29) mEq/L BUN (6-20) mg/dL Creatinine (0.60-1.20) mg/dL Est GFR ( Amer) (> 60) Est GFR (Non-Af Amer) (> 60) BUN/Creatinine Ratio (6-26) Glucose (70-105) mg/dL Whole Bld Glucose 547 H* (65-95) mg/dl Calculated Osmolality (280-300) Calcium (8.6-10.3) mg/dL Venous Ioniz Calcium 1.10 L (1.15-1.35) mmol/L Total Bilirubin (0.3-1.0) mg/dL Direct Bilirubin (0.0-0.2) mg/dL Indirect Bilirubin (0.0-1.2) mg/dL AST (13-39) Units/L ALT (7-52) Units/L Alkaline Phosphatase (34-104) Units/L Serum Total Protein (6.4-8.9) g/dL Albumin (3.5-5.7) g/dL Globulin (2.4-3.5) g/dL Albumin/Globulin Ratio (1.1-2.2) Lipase (11-82) Units/L Beta-Hydroxybutyric Acd 1.63 H (0.02-0.27) mmol/L Urine Color (Yellow) Urine Clarity (Clear) Urine pH (5.0-8.0) pH Units Ur Specific [place] (1.010-1.025) Urine Protein (Neg-Trace) mg/dL Urine Glucose (UA) (Normal) mg/dL Urine Ketones (Negative) mg/dL Urine Blood (Negative) Urine Nitrite (Negative) Urine Bilirubin (Negative) Urine Urobilinogen (Normal) mg/dL Ur Leukocyte Esterase (Negative) Urine Microscopic RBC (0-3) per hpf Urine Microscopic WBC (0-3) per hpf Ur Squamous Epith Cells (None-Few) per lpf Urine Bacteria (None-Few) per hpf Hyaline Casts (None-Few) per lpf Ur Culture Indicated? (NO) Person Notif of Chelo MIRANDA RN - Radiology Data Radiology results reviewed: Yes I reviewed the patient's radiology results. Orin - Orin Situation: Demographics, MOA Background: Presenting Complaint, Relevant PMH, Meds, & Allergies Assessment: Vital Signs, Course and respsone to treatment, Exam Concerns, Patient/Family Expectation, Pertinant Lab Results, Outstanding Labs Recommendation: Barrier(s) to disposition, Recommendation based on pending studies, treatments, or consults SImelda Report Given to: JOVANY Smalls Repor Time: 06:00 Attestation Statement - Attestation Attestation: Dr. Prakash note: Patient was seen in conjunction with [facility]. Please see her charting for complete documentation. I spent [id number] time with the patient and agree with patient's treatment and disposition; hyperglycemia noted w/o acidosis; + urinary retention; no emesis noted in ER ; will give a total of 3 liters of NS and add subcutaneous insulin and recheck blood sugar w/ hope for d/ c and outpt f/u if blood sugars trend in the right direction; pt well appearing/ stable @ this time;
[2018-03-23] MEDS ORDERED: hydrOXYzine pamoate 25 MG CAPSULE PO ONE (03:18)
[2018-03-23 04:13] LABS: VBG Base Excess -2 mEq/L; VBG Chloride 101 mEq/L (98-107); VBG Glucose 547 mg/dl (65-95); VBG HCO3 24 mEq/L (21-27); VBG Oxygen Saturation 82 %; VBG PCO2 45 mmHg (41-51); VBG PH 7.33 pH Units (7.32-7.42); VBG PO2 49 mmHg (25-50); VBG Total CO2 25 mEq/L
[2018-03-23] MEDS ORDERED: Insulin Regular, Human 100 UNIT/ML SQ ONE (04:36)
[2018-03-23] MEDS ORDERED: Insulin LISPRO 300 UNITS/3 ML VIAL SQ ONE (04:44)
--- NOTE | 2018-03-23 06:16 | Emergency Department Note ---
Disposition Clinical Impression: Hyperglycemia, Urinary retention Intractable nausea and vomiting Qualifiers: Vomiting type: unspecified Qualified Code(s): R11.2 - Nausea with vomiting, unspecified Disposition: Admitted As Inpatient Condition: Good Referrals: Jaylan Moran MD [Primary Care Provider] - Forms: ED Satisfaction Letter, Work/School Release Time of Disposition: 09:55 General Adult HPI - General Chief complaint: ED General Medical Stated complaint: multiple complaints Time Seen by Provider: 03/22/18 23:43 Source: patient Mode of arrival: private vehicle Limitations: no limitations - History of Present Illness Location: abdomen Pain Scale: 8 Quality: aching, sharp Treatments Prior to Arrival: none - Related Data Home Medications Medication Instructions Recorded Confirmed Esomeprazole Magnesium [Nexium] 40 mg PO BID 01/20/18 03/23/18 Estradiol [Estradiol] 2 mg PO DAILY 01/20/18 03/23/18 LORazepam [Lorazepam] 2 mg PO TID PRN 01/20/18 03/23/18 Levomefolate/B6/B12/Algal Oil 1 cap PO BID 01/20/18 03/23/18 [Metanx Capsule] Lisinopril [Zestril] 10 mg PO DAILY 01/20/18 03/23/18 Promethazine HCl 12.5 mg PO TID 01/20/18 03/23/18 Rosuvastatin [Crestor] 20 mg PO HS 01/20/18 03/23/18 Subcutaneous Insulin Pump [T:Slim] 1 each MC ONCE 01/20/18 03/23/18 Cholecalciferol (Vitamin D3) 800 unit PO DAILY 03/21/18 03/23/18 [Vitamin D3] Gabapentin [Neurontin] 100 mg PO HS 03/21/18 03/23/18 Orphenadrine Citrate 100 mg PO BID 03/21/18 03/23/18 Quetiapine Fumarate [Seroquel] 50 - 200 mg PO HS PRN 03/21/18 03/23/18 Allergies Allergy/AdvReac Type Severity Reaction Status Date / Time acetaminophen [From Tylenol] Allergy Rash Verified 03/23/18 08:55 azithromycin Allergy Hives Verified 03/23/18 08:55 Cortisone Allergy Swelling Verified 03/23/18 08:55 of Lip/Tongue/Throat hydrocodone Allergy Anaphylaxis Verified 03/23/18 08:55 ketorolac [From Toradol] Allergy Swelling Verified 03/23/18 08:55 of Lip/Tongue/Throat latex Allergy Rash Verified 03/23/18 08:55 morphine Allergy Anaphylaxis Verified 03/23/18 08:55 NSAIDS (Non-Steroidal Allergy Swelling Verified 03/23/18 08:55 Anti-Inflamma of Lip/Tongue/Throat metoclopramide [From Reglan] AdvReac Vomiting Verified 03/23/18 08:55 tramadol [From Ultram] AdvReac Vomiting Verified 03/23/18 08:55 Past Medical History - Past Medical History Medical history: Reports: asthma, diabetes, GERD, hyperlipidemia, hypertension, other Surgical history: Reports: appendectomy, cholecystectomy, hysterectomy, knee replacement, other Psychiatric history: Reports: anxiety, depression, panic disorder [employer] history: Reports: other - Social History Smoking Status: Current every day smoker Smokeless Tobacco Status: No Alcohol use: Reports: none Drug use: Reports: none Physical Exam - General Limitations: no limitations General appearance: alert, in no apparent distress Course Course Narrative: 0600: I have assumed care of this patient from JOVANY Sandoval due to mid-level shift change. Please see Lori's documentation for care performed prior to my arrival. Briefly, this is an alert and oriented nontoxic-appearing 37-year-old female with a history of asthma, hypertension, and type 1 diabetes that presented for complaints of urinary retention, nausea, vomiting, and hyperglycemia. She was recently admitted to this facility on 03/20 for elevated glucose, lower abdominal pain, and urinary retention. Urinalysis revealed a nitrite-positive urine and she was given Rocephin. She states that she left AGAINST MEDICAL ADVICE late in the night on 03/21, stating that she thought she was improved after the Valle catheter was removed. She stated that she had not been able to urinate after removal of the Valle catheter however. She presents again complaining of the lower abdominal pain, nausea, as well as vomiting. 0736: Repeat Accu-Chek after 3 L of IV fluids shows a blood glucose level of 369. The patient was borderline acidotic with a pH of 7.33 on initial presentation. Repeat VBG pending at this time. 0952: I spoke with Dr. Castelan, of the hospital service who has agreed to accept the patient for admission for further observation and evaluation. Repeat pH of 7.34. Vital Signs Temperature 99.3 F 03/22/18 23:19 Pulse Rate 93 03/22/18 23:19 Respiratory Rate 20 03/22/18 23:19 Blood Pressure 181/89 03/22/18 23:19 O2 Sat by Pulse Oximetry 100 03/22/18 23:19 Temperature 99.3 F 03/22/18 23:19 Pulse Rate 69 03/23/18 09:28 Respiratory Rate 15 03/23/18 08:16 Blood Pressure 149/103 03/23/18 09:28 O2 Sat by Pulse Oximetry 95 03/23/18 09:28 Oxygen Delivery Oxygen Delivery Room Air Medical Decision Making - Medical Records Medical records reviewed: Yes I reviewed the patient's medical records. - Lab Data Lab results reviewed: Yes I reviewed the patient's lab results. Lab results narrative: Lab Results 03/23/18 03/23/18 03/23/18 Range/Units 00:06 00:30 00:30 WBC 6.9 (4.3-11.1) K/mcL RBC 3.53 L (3.82-4.97) M/mcL Hgb 10.7 L (11.5-15.4) g/dL Hct 31.0 L (35.3-44.9) % MCV 87.8 (83.0-100.0) fL MCH 30.3 (28.0-33.3) pg MCHC 34.5 (31.6-35.5) g/dL RDW 13.4 (11.5-14.5) % Plt Count 174 (140-400) K/mcL MPV 9.9 (9.4-12.4) fL Immature Gran % 0.1 (0-4) % Seg Neutrophils % 84.6 % Lymphocytes % 11.0 % Monocytes % 2.2 % Eosinophils % 1.7 % Basophils % 0.4 % Neutrophils # 5.8 (1.6-8.9) K/mcL Lymphocytes # 0.8 (0.6-4.6) K/mcL Monocytes # 0.2 (0.0-1.3) K/mcL Eosinophils # 0.1 (0.0-0.6) K/mcL Basophils # 0.0 (0.0-0.2) K/mcL VBG pH (7.32-7.42) pH Units VBG pCO2 (41-51) mmHg VBG pO2 (25-50) mmHg VBG HCO3 (21-27) mEq/L VBG Total CO2 mEq/L VBG O2 Saturation % VBG Base Excess mEq/L Venous Sodium (135-145) mEq/L Sodium 132 L (136-145) mEq/L Venous Potassium (3.5-5.5) mEq/L Potassium 4.4 (3.5-5.1) mEq/L Venous Chloride (98-107) mEq/L Chloride 101 (98-107) mEq/L Carbon Dioxide 24 (23-29) mEq/L BUN 15 (6-20) mg/dL Creatinine 0.94 (0.60-1.20) mg/dL Est GFR ( Amer) > 60 (> 60) Est GFR (Non-Af Amer) > 60 (> 60) BUN/Creatinine Ratio 16 (6-26) Glucose 500 H* (70-105) mg/dL Whole Bld Glucose (65-95) mg/dl Calculated Osmolality 297 (280-300) Calcium 8.9 (8.6-10.3) mg/dL Venous Ioniz Calcium (1.15-1.35) mmol/L Total Bilirubin 0.5 (0.3-1.0) mg/dL Direct Bilirubin 0.1 (0.0-0.2) mg/dL Indirect Bilirubin 0.4 (0.0-1.2) mg/dL AST 21 (13-39) Units/L ALT 16 (7-52) Units/L Alkaline Phosphatase 105 H (34-104) Units/L Serum Total Protein 7.0 (6.4-8.9) g/dL Albumin 3.8 (3.5-5.7) g/dL Globulin 3.2 (2.4-3.5) g/dL Albumin/Globulin Ratio 1.2 (1.1-2.2) Lipase 5 L (11-82) Units/L Beta-Hydroxybutyric Acd (0.02-0.27) mmol/L Urine Color Yellow (Yellow) Urine Clarity Clear (Clear) Urine pH 6.5 (5.0-8.0) pH Units Ur Specific Sargent 1.024 (1.010-1.025) Urine Protein Negative (Neg-Trace) mg/dL Urine Glucose (UA) >=1000 H (Normal) mg/dL Urine Ketones Negative (Negative) mg/dL Urine Blood Small H (Negative) Urine Nitrite Negative (Negative) Urine Bilirubin Negative (Negative) Urine Urobilinogen Normal (Normal) mg/dL Ur Leukocyte Esterase Negative (Negative) Urine Microscopic RBC 5-15 H (0-3) per hpf Urine Microscopic WBC 3-5 H (0-3) per hpf Ur Squamous Epith Cells Many H (None-Few) per lpf Urine Bacteria None Seen (None-Few) per hpf Hyaline Casts None Seen (None-Few) per lpf Ur Culture Indicated? NO (NO) Person Notif of Crit 03/23/18 03/23/18 Range/Units 03:56 04:06 WBC (4.3-11.1) K/mcL RBC (3.82-4.97) M/mcL Hgb (11.5-15.4) g/dL Hct (35.3-44.9) % MCV (83.0-100.0) fL MCH (28.0-33.3) pg MCHC (31.6-35.5) g/dL RDW (11.5-14.5) % Plt Count (140-400) K/mcL MPV (9.4-12.4) fL Immature Gran % (0-4) % Seg Neutrophils % % Lymphocytes % % Monocytes % % Eosinophils % % Basophils % % Neutrophils # (1.6-8.9) K/mcL Lymphocytes # (0.6-4.6) K/mcL Monocytes # (0.0-1.3) K/mcL Eosinophils # (0.0-0.6) K/mcL Basophils # (0.0-0.2) K/mcL VBG pH 7.33 (7.32-7.42) pH Units VBG pCO2 45 (41-51) mmHg VBG pO2 49 (25-50) mmHg VBG HCO3 24 (21-27) mEq/L VBG Total CO2 25 mEq/L VBG O2 Saturation 82 % VBG Base Excess -2 mEq/L Venous Sodium 134 L (135-145) mEq/L Sodium (136-145) mEq/L Venous Potassium 5.4 (3.5-5.5) mEq/L Potassium (3.5-5.1) mEq/L Venous Chloride 101 (98-107) mEq/L Chloride (98-107) mEq/L Carbon Dioxide (23-29) mEq/L BUN (6-20) mg/dL Creatinine (0.60-1.20) mg/dL Est GFR ( Amer) (> 60) Est GFR (Non-Af Amer) (> 60) BUN/Creatinine Ratio (6-26) Glucose (70-105) mg/dL Whole Bld Glucose 547 H* (65-95) mg/dl Calculated Osmolality (280-300) Calcium (8.6-10.3) mg/dL Venous Ioniz Calcium 1.10 L (1.15-1.35) mmol/L Total Bilirubin (0.3-1.0) mg/dL Direct Bilirubin (0.0-0.2) mg/dL Indirect Bilirubin (0.0-1.2) mg/dL AST (13-39) Units/L ALT (7-52) Units/L Alkaline Phosphatase (34-104) Units/L Serum Total Protein (6.4-8.9) g/dL Albumin (3.5-5.7) g/dL Globulin (2.4-3.5) g/dL Albumin/Globulin Ratio (1.1-2.2) Lipase (11-82) Units/L Beta-Hydroxybutyric Acd 1.63 H (0.02-0.27) mmol/L Urine Color (Yellow) Urine Clarity (Clear) Urine pH (5.0-8.0) pH Units Ur Specific Sargent (1.010-1.025) Urine Protein (Neg-Trace) mg/dL Urine Glucose (UA) (Normal) mg/dL Urine Ketones (Negative) mg/dL Urine Blood (Negative) Urine Nitrite (Negative) Urine Bilirubin (Negative) Urine Urobilinogen (Normal) mg/dL Ur Leukocyte Esterase (Negative) Urine Microscopic RBC (0-3) per hpf Urine Microscopic WBC (0-3) per hpf Ur Squamous Epith Cells (None-Few) per lpf Urine Bacteria (None-Few) per hpf Hyaline Casts (None-Few) per lpf Ur Culture Indicated? (NO) Person Notif of Chelo MIRANDA RN Result diagrams: 03/23/18 00:30 03/23/18 08:02 Lab Results 03/23/18 03/23/18 03/23/18 Range/Units 00:06 00:30 00:30 WBC 6.9 (4.3-11.1) K/mcL RBC 3.53 L (3.82-4.97) M/mcL Hgb 10.7 L (11.5-15.4) g/dL Hct 31.0 L (35.3-44.9) % MCV 87.8 (83.0-100.0) fL MCH 30.3 (28.0-33.3) pg MCHC 34.5 (31.6-35.5) g/dL RDW 13.4 (11.5-14.5) % Plt Count 174 (140-400) K/mcL MPV 9.9 (9.4-12.4) fL Immature Gran % 0.1 (0-4) % Seg Neutrophils % 84.6 % Lymphocytes % 11.0 % Monocytes % 2.2 % Eosinophils % 1.7 % Basophils % 0.4 % Neutrophils # 5.8 (1.6-8.9) K/mcL Lymphocytes # 0.8 (0.6-4.6) K/mcL Monocytes # 0.2 (0.0-1.3) K/mcL Eosinophils # 0.1 (0.0-0.6) K/mcL Basophils # 0.0 (0.0-0.2) K/mcL VBG pH (7.32-7.42) pH Units VBG pCO2 (41-51) mmHg VBG pO2 (25-50) mmHg VBG HCO3 (21-27) mEq/L VBG Total CO2 mEq/L VBG O2 Saturation % VBG Base Excess mEq/L Venous Sodium (135-145) mEq/L Sodium 132 L (136-145) mEq/L Venous Potassium (3.5-5.5) mEq/L Potassium 4.4 (3.5-5.1) mEq/L Venous Chloride (98-107) mEq/L Chloride 101 (98-107) mEq/L Carbon Dioxide 24 (23-29) mEq/L BUN 15 (6-20) mg/dL Creatinine 0.94 (0.60-1.20) mg/dL Est GFR ( Amer) > 60 (> 60) Est GFR (Non-Af Amer) > 60 (> 60) BUN/Creatinine Ratio 16 (6-26) Glucose 500 H* (70-105) mg/dL Whole Bld Glucose (65-95) mg/dl POC Glucose (70-99) mg/dL Calculated Osmolality 297 (280-300) Calcium 8.9 (8.6-10.3) mg/dL Venous Ioniz Calcium (1.15-1.35) mmol/L Total Bilirubin 0.5 (0.3-1.0) mg/dL Direct Bilirubin 0.1 (0.0-0.2) mg/dL Indirect Bilirubin 0.4 (0.0-1.2) mg/dL AST 21 (13-39) Units/L ALT 16 (7-52) Units/L Alkaline Phosphatase 105 H (34-104) Units/L Serum Total Protein 7.0 (6.4-8.9) g/dL Albumin 3.8 (3.5-5.7) g/dL Globulin 3.2 (2.4-3.5) g/dL Albumin/Globulin Ratio 1.2 (1.1-2.2) Lipase 5 L (11-82) Units/L Beta-Hydroxybutyric Acd (0.02-0.27) mmol/L Serum , Qual (Negative) Urine Color Yellow (Yellow) Urine Clarity Clear (Clear) Urine pH 6.5 (5.0-8.0) pH Units Ur Specific Sargent 1.024 (1.010-1.025) Urine Protein Negative (Neg-Trace) mg/dL Urine Glucose (UA) >=1000 H (Normal) mg/dL Urine Ketones Negative (Negative) mg/dL Urine Blood Small H (Negative) Urine Nitrite Negative (Negative) Urine Bilirubin Negative (Negative) Urine Urobilinogen Normal (Normal) mg/dL Ur Leukocyte Esterase Negative (Negative) Urine Microscopic RBC 5-15 H (0-3) per hpf Urine Microscopic WBC 3-5 H (0-3) per hpf Ur Squamous Epith Cells Many H (None-Few) per lpf Urine Bacteria None Seen (None-Few) per hpf Hyaline Casts None Seen (None-Few) per lpf Ur Culture Indicated? NO (NO) Person Notif of Crit 03/23/18 03/23/18 03/23/18 Range/Units 00:30 03:21 03:23 WBC (4.3-11.1) K/mcL RBC (3.82-4.97) M/mcL Hgb (11.5-15.4) g/dL Hct (35.3-44.9) % MCV (83.0-100.0) fL MCH (28.0-33.3) pg MCHC (31.6-35.5) g/dL RDW (11.5-14.5) % Plt Count (140-400) K/mcL MPV (9.4-12.4) fL Immature Gran % (0-4) % Seg Neutrophils % % Lymphocytes % % Monocytes % % Eosinophils % % Basophils % % Neutrophils # (1.6-8.9) K/mcL Lymphocytes # (0.6-4.6) K/mcL Monocytes # (0.0-1.3) K/mcL Eosinophils # (0.0-0.6) K/mcL Basophils # (0.0-0.2) K/mcL VBG pH (7.32-7.42) pH Units VBG pCO2 (41-51) mmHg VBG pO2 (25-50) mmHg VBG HCO3 (21-27) mEq/L VBG Total CO2 mEq/L VBG O2 Saturation % VBG Base Excess mEq/L Venous Sodium (135-145) mEq/L Sodium (136-145) mEq/L Venous Potassium (3.5-5.5) mEq/L Potassium (3.5-5.1) mEq/L Venous Chloride (98-107) mEq/L Chloride (98-107) mEq/L Carbon Dioxide (23-29) mEq/L BUN (6-20) mg/dL Creatinine (0.60-1.20) mg/dL Est GFR ( Amer) (> 60) Est GFR (Non-Af Amer) (> 60) BUN/Creatinine Ratio (6-26) Glucose (70-105) mg/dL Whole Bld Glucose (65-95) mg/dl POC Glucose 519 H* 558 H* (70-99) mg/dL Calculated Osmolality (280-300) Calcium (8.6-10.3) mg/dL Venous Ioniz Calcium (1.15-1.35) mmol/L Total Bilirubin (0.3-1.0) mg/dL Direct Bilirubin (0.0-0.2) mg/dL Indirect Bilirubin (0.0-1.2) mg/dL AST (13-39) Units/L ALT (7-52) Units/L Alkaline Phosphatase (34-104) Units/L Serum Total Protein (6.4-8.9) g/dL Albumin (3.5-5.7) g/dL Globulin (2.4-3.5) g/dL Albumin/Globulin Ratio (1.1-2.2) Lipase (11-82) Units/L Beta-Hydroxybutyric Acd (0.02-0.27) mmol/L Serum , Qual Negative (Negative) Urine Color (Yellow) Urine Clarity (Clear) Urine pH (5.0-8.0) pH Units Ur Specific Sargent (1.010-1.025) Urine Protein (Neg-Trace) mg/dL Urine Glucose (UA) (Normal) mg/dL Urine Ketones (Negative) mg/dL Urine Blood (Negative) Urine Nitrite (Negative) Urine Bilirubin (Negative) Urine Urobilinogen (Normal) mg/dL Ur Leukocyte Esterase (Negative) Urine Microscopic RBC (0-3) per hpf Urine Microscopic WBC (0-3) per hpf Ur Squamous Epith Cells (None-Few) per lpf Urine Bacteria (None-Few) per hpf Hyaline Casts (None-Few) per lpf Ur Culture Indicated? (NO) Person Notif of Crit 03/23/18 03/23/18 03/23/18 Range/Units 03:56 04:06 08:02 WBC (4.3-11.1) K/mcL RBC (3.82-4.97) M/mcL Hgb (11.5-15.4) g/dL Hct (35.3-44.9) % MCV (83.0-100.0) fL MCH (28.0-33.3) pg MCHC (31.6-35.5) g/dL RDW (11.5-14.5) % Plt Count (140-400) K/mcL MPV (9.4-12.4) fL Immature Gran % (0-4) % Seg Neutrophils % % Lymphocytes % % Monocytes % % Eosinophils % % Basophils % % Neutrophils # (1.6-8.9) K/mcL Lymphocytes # (0.6-4.6) K/mcL Monocytes # (0.0-1.3) K/mcL Eosinophils # (0.0-0.6) K/mcL Basophils # (0.0-0.2) K/mcL VBG pH 7.33 (7.32-7.42) pH Units VBG pCO2 45 (41-51) mmHg VBG pO2 49 (25-50) mmHg VBG HCO3 24 (21-27) mEq/L VBG Total CO2 25 mEq/L VBG O2 Saturation 82 % VBG Base Excess -2 mEq/L Venous Sodium 134 L (135-145) mEq/L Sodium 133 L (136-145) mEq/L Venous Potassium 5.4 (3.5-5.5) mEq/L Potassium 4.0 (3.5-5.1) mEq/L Venous Chloride 101 (98-107) mEq/L Chloride 107 (98-107) mEq/L Carbon Dioxide 22 L (23-29) mEq/L BUN 13 (6-20) mg/dL Creatinine 0.90 (0.60-1.20) mg/dL Est GFR ( Amer) > 60 (> 60) Est GFR (Non-Af Amer) > 60 (> 60) BUN/Creatinine Ratio 14 (6-26) Glucose 358 H (70-105) mg/dL Whole Bld Glucose 547 H* (65-95) mg/dl POC Glucose (70-99) mg/dL Calculated Osmolality 291 (280-300) Calcium 8.1 L (8.6-10.3) mg/dL Venous Ioniz Calcium 1.10 L (1.15-1.35) mmol/L Total Bilirubin (0.3-1.0) mg/dL Direct Bilirubin (0.0-0.2) mg/dL Indirect Bilirubin (0.0-1.2) mg/dL AST (13-39) Units/L ALT (7-52) Units/L Alkaline Phosphatase (34-104) Units/L Serum Total Protein (6.4-8.9) g/dL Albumin (3.5-5.7) g/dL Globulin (2.4-3.5) g/dL Albumin/Globulin Ratio (1.1-2.2) Lipase (11-82) Units/L Beta-Hydroxybutyric Acd 1.63 H (0.02-0.27) mmol/L Serum , Qual (Negative) Urine Color (Yellow) Urine Clarity (Clear) Urine pH (5.0-8.0) pH Units Ur Specific Sargent (1.010-1.025) Urine Protein (Neg-Trace) mg/dL Urine Glucose (UA) (Normal) mg/dL Urine Ketones (Negative) mg/dL Urine Blood (Negative) Urine Nitrite (Negative) Urine Bilirubin (Negative) Urine Urobilinogen (Normal) mg/dL Ur Leukocyte Esterase (Negative) Urine Microscopic RBC (0-3) per hpf Urine Microscopic WBC (0-3) per hpf Ur Squamous Epith Cells (None-Few) per lpf Urine Bacteria (None-Few) per hpf Hyaline Casts (None-Few) per lpf Ur Culture Indicated? (NO) Person Notif of Chelo MIRANDA RN 03/23/18 Range/Units 08:21 WBC (4.3-11.1) K/mcL RBC (3.82-4.97) M/mcL Hgb (11.5-15.4) g/dL Hct (35.3-44.9) % MCV (83.0-100.0) fL MCH (28.0-33.3) pg MCHC (31.6-35.5) g/dL RDW (11.5-14.5) % Plt Count (140-400) K/mcL MPV (9.4-12.4) fL Immature Gran % (0-4) % Seg Neutrophils % % Lymphocytes % % Monocytes % % Eosinophils % % Basophils % % Neutrophils # (1.6-8.9) K/mcL Lymphocytes # (0.6-4.6) K/mcL Monocytes # (0.0-1.3) K/mcL Eosinophils # (0.0-0.6) K/mcL Basophils # (0.0-0.2) K/mcL VBG pH 7.34 (7.32-7.42) pH Units VBG pCO2 39 L (41-51) mmHg VBG pO2 168 H (25-50) mmHg VBG HCO3 21 (21-27) mEq/L VBG Total CO2 mEq/L VBG O2 Saturation % VBG Base Excess mEq/L Venous Sodium (135-145) mEq/L Sodium (136-145) mEq/L Venous Potassium (3.5-5.5) mEq/L Potassium (3.5-5.1) mEq/L Venous Chloride (98-107) mEq/L Chloride (98-107) mEq/L Carbon Dioxide (23-29) mEq/L BUN (6-20) mg/dL Creatinine (0.60-1.20) mg/dL Est GFR ( Amer) (> 60) Est GFR (Non-Af Amer) (> 60) BUN/Creatinine Ratio (6-26) Glucose (70-105) mg/dL Whole Bld Glucose (65-95) mg/dl POC Glucose (70-99) mg/dL Calculated Osmolality (280-300) Calcium (8.6-10.3) mg/dL Venous Ioniz Calcium (1.15-1.35) mmol/L Total Bilirubin (0.3-1.0) mg/dL Direct Bilirubin (0.0-0.2) mg/dL Indirect Bilirubin (0.0-1.2) mg/dL AST (13-39) Units/L ALT (7-52) Units/L Alkaline Phosphatase (34-104) Units/L Serum Total Protein (6.4-8.9) g/dL Albumin (3.5-5.7) g/dL Globulin (2.4-3.5) g/dL Albumin/Globulin Ratio (1.1-2.2) Lipase (11-82) Units/L Beta-Hydroxybutyric Acd (0.02-0.27) mmol/L Serum , Qual (Negative) Urine Color (Yellow) Urine Clarity (Clear) Urine pH (5.0-8.0) pH Units Ur Specific Sargent (1.010-1.025) Urine Protein (Neg-Trace) mg/dL Urine Glucose (UA) (Normal) mg/dL Urine Ketones (Negative) mg/dL Urine Blood (Negative) Urine Nitrite (Negative) Urine Bilirubin (Negative) Urine Urobilinogen (Normal) mg/dL Ur Leukocyte Esterase (Negative) Urine Microscopic RBC (0-3) per hpf Urine Microscopic WBC (0-3) per hpf Ur Squamous Epith Cells (None-Few) per lpf Urine Bacteria (None-Few) per hpf Hyaline Casts (None-Few) per lpf Ur Culture Indicated? (NO) Person Notif of Crit
[2018-03-23] MEDS ORDERED: *HR* Promethazine 25 MG/ML VIAL IVP STA (06:56)
[2018-03-23 08:24] LABS: BUN/Creatinine Ratio 14 (6-26); Blood Urea Nitrogen 13 mg/dL (6-20); Calcium 8.1 mg/dL (8.6-10.3); Carbon Dioxide 22 mEq/L (23-29); Chloride 107 mEq/L (98-107); Glucose 358 mg/dL (70-105); Osmolality,Calculated 291 (280-300); Sodium 133 mEq/L (136-145); eGFR For Non-African Americans > 60 (> 60)
[2018-03-23 08:24] LABS: VBG HCO3 21 mEq/L (21-27); VBG PCO2 39 mmHg (41-51); VBG PH 7.34 pH Units (7.32-7.42); VBG PO2 168 mmHg (25-50)
[2018-03-23] MEDS ORDERED: Naloxone 0.4 MG/ML INJ IVP PRN (11:56)
[2018-03-23] MEDS ORDERED: D5% in Water 1,000 ML IVC PRN (12:02)
[2018-03-23] MEDS ORDERED: Dextrose Gel 15 GM/37.5 ML TUBE PO PRN ×2 (12:02)
--- NOTE | 2018-03-23 12:17 | Internal Med History&Physical ---
<Neda Billy - Last Filed: 03/23/18 14:13> Date of Encounter: 03/23/18 Time of Encounter: 12:14 Internal Medicine - H&P: HPI Chief complaint: Inability to urinate, hyperglycemia, nausea and vomiting Admitted From: Home Plans for Post Hospital Care: Home History of present illness: Ms. Gaming is a 37 year old female with history of renal insufficiency, HLD, diabetes mellitus 2, GERD and hypertension. Patient presents with the inability to urinate. A sahni cath was placed in the ED. Patient had associated nausea and vomiting and had elevated blood sugar in the 700s. She was admitted on 722 with hyperglycemia and left AMA. Patient complains of a moist cough in the ED and was noted to have wheezes anteriorly, bilaterally on assessment, will add bronchodilators. CXR was negative. The patient current blood sugar is 369. The patient indicated that her insulin pump was suspended. The patient continues with subtle bouts of nausea. Etiology of the nausea and vomiting is currently unknown, however could be related to elevated blood sugars. Past Med Surg Social Fam HX - Past Medical History Medical history: asthma, diabetes, GERD, hyperlipidemia, hypertension, other Additional medical history: recurrent headaches. anxiety. GERD. CT spine, pelvis, lumbar. 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 Psychiatric history: anxiety, depression, panic disorder - Past Surgical History Surgical History: appendectomy, cholecystectomy, hysterectomy, knee replacement , other Additional surgical history: right shouder rivas - Social History Smoking Status: Current every day smoker Packs per day: 0.25 Smokeless Tobacco Status: No Alcohol use: none Drug use: none - Family History Mother Family Member Ethnicity: Non- Living Status: Still Living Hx Family Cardiac Disorders: Yes (HTN, HLD) Hx Family Respiratory Disorders: Yes (Asthma) Father Family Member Ethnicity: Non- Living Status: Still Living Hx Family Cardiac Disorders: Yes (HTN, HLD) Hx Family Respiratory Disorders: Yes Hx Family GI Disorders: Yes (cirrhosis) Hx Family Endocrine Disorder: Yes (Cirrhosis) Hx Family Autoimmune Disorders: Yes (Alkylosing Spondylitis) Brother Family Member Ethnicity: Non- Living Status: Still Living Hx Family Endocrine Disorder: Yes (Pancreatitis, Cirrhosis) Sister Family Member Ethnicity: Non- Living Status: Still Living Grandfather Family Member Ethnicity: Non- Living Status: Hx Family Cardiac Disorders: Yes (TN, Stroke) Hx Family Endocrine Disorder: Yes (DM) Internal Medicine - H&P: Meds Esomeprazole Magnesium [Nexium] 40 mg PO BID 01/20/18 [History] Estradiol [Estradiol] 2 mg PO DAILY 01/20/18 [History] LORazepam [Lorazepam] 2 mg PO TID PRN 01/20/18 [History] Levomefolate/B6/B12/Algal Oil [Metanx Capsule] 1 cap PO BID 01/20/18 [History] Lisinopril [Zestril] 10 mg PO DAILY 01/20/18 [History] Promethazine HCl 12.5 mg PO TID 01/20/18 [History] Rosuvastatin [Crestor] 20 mg PO HS 01/20/18 [History] Subcutaneous Insulin Pump [T:Slim] 1 each MC ONCE 01/20/18 [History] Cholecalciferol (Vitamin D3) [Vitamin D3] 800 unit PO DAILY 03/21/18 [History] Gabapentin [Neurontin] 100 mg PO HS 03/21/18 [History] Orphenadrine Citrate 100 mg PO BID 03/21/18 [History] Quetiapine Fumarate [Seroquel] 50 - 200 mg PO HS PRN 03/21/18 [History] 3 Allergy/AdvReac Type Severity Reaction Status Date / Time acetaminophen [From Tylenol] Allergy Rash Verified 03/23/18 08:55 azithromycin Allergy Hives Verified 03/23/18 08:55 Cortisone Allergy Swelling Verified 03/23/18 08:55 of Lip/Tongue/Throat hydrocodone Allergy Anaphylaxis Verified 03/23/18 08:55 ketorolac [From Toradol] Allergy Swelling Verified 03/23/18 08:55 of Lip/Tongue/Throat latex Allergy Rash Verified 03/23/18 08:55 morphine Allergy Anaphylaxis Verified 03/23/18 08:55 NSAIDS (Non-Steroidal Allergy Swelling Verified 03/23/18 08:55 Anti-Inflamma of Lip/Tongue/Throat metoclopramide [From Reglan] AdvReac Vomiting Verified 03/23/18 08:55 tramadol [From Ultram] AdvReac Vomiting Verified 03/23/18 08:55 All Systems PM: A 10-system review of systems was performed and is negative for pertinent findings except as documented above in the HPI. - Constitutional Constitutional: no chills, no fever(s), no night sweats - EENT Eyes: no change in vision, no discharge, no pain, no photophobia Ears: no ear discharge, no ear pain, no tinnitus Nose, mouth and throat: no dysphagia, no nasal discharge, no neck pain, no sore throat - Cardiovascular Cardiovascular ROS IM: no chest pain, no diaphoresis, no dyspnea, no lightheadedness, no palpitations, no syncope - Respiratory Respiratory: wheezing, no cough, no dyspnea, no excessive phlegm production - Gastrointestinal Gastrointestinal: nausea, vomiting, no abdominal pain, no diarrhea, no hematemesis, no hematochezia, no melena - Genitourinary Genitourinary: no change in urinary stream, no dysuria, no flank pain, no hematuria - Musculoskeletal Musculoskeletal ROS IM: no numbness, no tingling - Integumentary Integumentary IM: no rash, no unusual bruising - Neurological Neurological ROS: no confusion, no convulsions, no focal weakness, no numbness, no tingling, no tremor(s) - Hematologic/Lymphatic Hematologic/Lymphatic: no easy bruising - Constitutional Vitals: Temp Pulse Resp BP Pulse Ox 98.1 F 73 15 130/76 97 03/23/18 12:00 03/23/18 12:00 03/23/18 12:00 03/23/18 12:00 03/23/18 12:00 General appearance: Present: A&O X 3, answers questions appropriately - Head Head exam: Present: atraumatic, normocephalic - Eye Eye exam: Present: PERRL, conjuntiva pink, sclera anicteric Pupils: Present: PERRL - Neck Neck exam general surgery: Present: supple, trachea midline. Absent: lymphadenopathy - Respiratory Respiratory exam: Present: wheezes. Absent: accessory muscle use, rales, rhonchi - Cardiovascular Cardiovascular exam: Present: RRR, +S1, +S2. Absent: diastolic murmur, gallop, rubs, systolic murmur - GI/Abdominal GI/Abdominal exam: Present: normal bowel sounds, soft, no peritoneal signs. Absent: distended, tenderness - Extremities Exam Extremities exam: Present: warm, radial pulses palpable and symmetrical. Absent : calf tenderness, cyanotic, pedal edema - Neurological Exam Neurological exam: Present: CN II-XII intact, oriented X3, no focal deficits. Absent: pronater drift, facial droop, speech deficit - Skin Skin exam: Present: dry, intact Internal Med - H&P Results - Labs CBC & Chem 7: 03/23/18 00:30 03/23/18 08:02 - Assessment and plan (1) Hyperglycemia without ketosis Current Visit: Yes Status: Acute Assessment and plan: Patient has insulin pump-suspended Accu checks q4h with high dose sliding scale coverage. NPO May have water Lipid panel in am AIC was 8.4 on 03/21/2018 Monitor labs (2) Intractable nausea and vomiting Current Visit: Yes Status: Acute Assessment and plan: Unsure of etiology of N+V. Zofran 4 mg q4h prn Monitor daily labs Qualifiers: Vomiting type: unspecified Qualified Code(s): R11.2 - Nausea with vomiting , unspecified (3) Urinary retention Current Visit: Yes Status: Acute Assessment and plan: Patient apparently had an inability to urinate at home. She apparently had some pressure after she had a sahni cath removed while inpatient 3 days ago. Sahni cath in place UA negative for infection - Time Spent With Patient Total time spent is greater than 50% in coordination of care (as documented) at patient's floor/unit and/or counseling patient: <Jonah Castelan - Last Filed: 03/23/18 21:36> Date of Encounter: 03/23/18 Internal Medicine - H&P: HPI History of present illness: Ms. Gaming is a 37 year old female All Systems PM: A 10-system review of systems was performed and is negative for pertinent findings except as documented above in the HPI. - Constitutional Vitals: Temp Pulse Resp BP Pulse Ox 98.2 F 79 16 139/78 99 03/23/18 18:34 03/23/18 18:34 03/23/18 18:34 03/23/18 18:34 03/23/18 18:34 Internal Med - H&P Results - Labs CBC & Chem 7: 03/23/18 00:30 03/23/18 08:02 - Attending Attestation I have evaluated and formulated management plan of the patient with Neda Billy and I agree with his/her assessment and plan. 37 year old diabetic patient is admitted for hyperglycemia and urinary retention. Mild elevation in ketone due to vomiting. UPT -ve. Suspect element of drug-seeking behavior as she was comfortably resting in bed prior to the interview but started complaining of multiple somatic symptoms to request for pain medication. Will manage for hyperglycemia with high dose sliding scale and keep sahni in for outpatient urology follow up. - Time Spent With Patient Total time spent is greater than 50% in coordination of care (as documented) at patient's floor/unit and/or counseling patient:
[2018-03-23] MEDS ORDERED: Ipratropium/Albuterol Neb 3 ML IH PRN (12:18)
[2018-03-23] MEDS: Ondansetron 4 MG/2 ML VIAL IVP PRN ×2 (12:43→16:51)
[2018-03-23] MEDS: *HR* LORazepam 1 MG TABLET PO PRN ×2 (12:52→22:33)
[2018-03-23] MEDS: Pantoprazole 40 MG VIAL IVP SCH (13:23)
[2018-03-23] MEDS: Insulin LISPRO 300 UNITS/3 ML VIAL SQ SCH ×3 (13:23→20:36)
--- NOTE | 2018-03-23 15:44 | Event Note ---
Date of Encounter: 03/23/18 Time of Encounter: 15:42 The patient continues to have nausea and vomiting. Unable to keep liquids down. IVF started at this time. BP is 130/76. Na was 134 on admit.
[2018-03-23] MEDS ORDERED: OXYCODONE Oral CONC 10 MG/0.5 ML ORAL.SYG SL PRN (15:55)
[2018-03-23] MEDS ORDERED: Insulin LISPRO 300 UNITS/3 ML VIAL SQ SCH (16:00)
[2018-03-23] MEDS: 0.9 % Sodium Chloride 1,000 ML IVC SCH (16:52)
[2018-03-23] MEDS: *HR* FentaNYL (PF) 100 MCG/2 ML VIAL IVP PRN (18:44)
[2018-03-23] MEDS: *HR* Dextrose 50 % in Water (Syg) 50 ML SYRINGE IVP PRN ×3 (18:44→20:35)
[2018-03-23] MEDS: [UNRECOGNIZED DRUG - OTHER] PO SCH (20:26)
[2018-03-23] MEDS: Gabapentin 100 MG CAPSULE PO SCH (20:26)
[2018-03-23] MEDS: Orphenadrine 100 MG TABLET.ER PO SCH (20:26)
[2018-03-24] MEDS: Insulin LISPRO 300 UNITS/3 ML VIAL SQ SCH ×7 (00:01→23:58)
[2018-03-24] MEDS: *HR* FentaNYL (PF) 100 MCG/2 ML VIAL IVP PRN ×4 (00:45→22:50)
[2018-03-24] MEDS: Ondansetron 4 MG/2 ML VIAL IVP PRN ×3 (00:52→14:39)
[2018-03-24] MEDS: 0.9 % Sodium Chloride 1,000 ML IVC SCH ×3 (04:55→21:36)
[2018-03-24 05:06] LABS: Basophils % 0.6 %; Eosinophils # 0.3 K/mcL (0.0-0.6); Eosinophils % 6.4 %; Hematocrit 31.4 % (35.3-44.9); Hemoglobin 10.9 g/dL (11.5-15.4); Immature Granulocytes % 0.2 % (0-4); Lymphocytes # 2.4 K/mcL (0.6-4.6); Lymphocytes % 50.1 %; Mean Corpuscular HGB Conc 34.7 g/dL (31.6-35.5); Mean Corpuscular Hemoglobin 30.6 pg (28.0-33.3); Mean Corpuscular Volume 88.2 fL (83.0-100.0); Mean Platelet Volume 9.9 fL (9.4-12.4); Monocytes # 0.4 K/mcL (0.0-1.3); Monocytes % 7.2 %; Neutrophils # 1.7 K/mcL (1.6-8.9); Platelet Count 184 K/mcL (140-400); Red Blood Count 3.56 M/mcL (3.82-4.97); Red Cell Distribution Width 13.4 % (11.5-14.5); Segmented Neutrophils % 35.5 %
[2018-03-24 05:23] LABS: BUN/Creatinine Ratio 12 (6-26); Blood Urea Nitrogen 10 mg/dL (6-20); Calcium 8.7 mg/dL (8.6-10.3); Carbon Dioxide 24 mEq/L (23-29); Chloride 110 mEq/L (98-107); Chol/HDL Ratio 2.8 (0-4.9); Glucose 41 mg/dL (70-105); Osmolality,Calculated 286 (280-300); Potassium 3.7 mEq/L (3.5-5.1); Sodium 140 mEq/L (136-145); eGFR For Non-African Americans > 60 (> 60)
[2018-03-24] MEDS: Cholecalciferol (D-3) 1,000 UNIT TABLET PO SCH (08:10)
[2018-03-24] MEDS: Pantoprazole 40 MG VIAL IVP SCH (08:11)
[2018-03-24] MEDS: Orphenadrine 100 MG TABLET.ER PO SCH ×2 (08:11→21:07)
[2018-03-24] MEDS: [UNRECOGNIZED DRUG - OTHER] PO SCH ×2 (08:12→21:19)
[2018-03-24] MEDS: PATIENT TAKING PO SCH (08:12)
[2018-03-24] MEDS: *HR* LORazepam 1 MG TABLET PO PRN ×3 (09:49→22:50)
--- NOTE | 2018-03-24 11:38 | Internal Med Progress Note ---
Date of Encounter: 03/24/18 Time of Encounter: 11:35 - Assessment and plan (1) Hyperglycemia Current Visit: Yes Status: Acute Assessment and plan: 37-year-old female with past medical history of insulin-dependent diabetes mellitus presented with nausea vomiting, abdominal pain, unable to urinate. EG was found as 700 upon admission without acidosis. She has a insulin pump and she reported check insulin at home regularly. Insulin pump malfunction was suspected and was suspended. Patient was started on insulin sliding scale and BG currently was controlled. - We will restart the insulin pump today, monitor glucose and the pump effectiveness. (2) Urinary retention Current Visit: Yes Status: Acute Assessment and plan: Activity due to uncontrolled hyperglycemia, started patient on Urecholine, atempt to remove Valle today. (3) Nausea & vomiting Current Visit: No Status: Acute Assessment and plan: Symptoms not likely caused by uncontrolled diabetes. Supportive care with IV fluid, anti-inflammatory takes, and a tight blood glucose control. Qualifiers: Vomiting type: unspecified Vomiting Intractability: non-intractable Qualified Code(s): R11.2 - Nausea with vomiting, unspecified (4) Gastroparesis Current Visit: No Status: Chronic Assessment and plan: Tight blood glucose control. Patient not on any medication for gastroparesis currently. 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 (6) Hypertension Current Visit: No Status: Chronic Assessment and plan: BP controlled, continue home medications. Qualifiers: Hypertension type: essential hypertension Qualified Code(s): I10 - Essential (primary) hypertension (7) HLD (hyperlipidemia) Current Visit: No Status: Chronic Assessment and plan: Continue home medication. Qualifiers: Hyperlipidemia type: unspecified Qualified Code(s): E78.5 - Hyperlipidemia , unspecified - Time Spent With Patient Total time spent is greater than 50% in coordination of care (as documented) at patient's floor/unit and/or counseling patient: Greater than 35 minutes - Subjective Interval history: Pt still having N/V and abdominal pain. She is having a Valle. - Constitutional Vitals: Temp Pulse Resp BP Pulse Ox 98.3 F 79 14 147/81 98 03/24/18 11:20 03/24/18 11:20 03/24/18 11:20 03/24/18 11:20 03/24/18 11:20 General appearance: Present: A&O X 3, answers questions appropriately Exam: PHYSICAL EXAMINATION: GENERAL APPEARANCE: The patient is alert, oriented and in no acute distress. HEENT: Head is normocephalic. The sinuses are nontender. Pupils are equal and reactive. The nares are patent. Oropharynx clear without lesions. NECK: Supple without lymphadenopathy. HEART: Regular rate and rhythm. LUNGS: No crackles or wheezes are heard. ABDOMEN: Soft, nontender, nondistended with good bowel sounds heard. Inguinal area is normal. EXTREMITIES: Without cyanosis, clubbing or edema. NEUROLOGICAL: Gross nonfocal. SKIN: Warm and dry without any rash. Internal Medicine: Result - Labs CBC & Chem 7: 03/24/18 04:10 03/24/18 04:10 Labs: Short CBC 03/24/18 Range/Units 04:10 WBC 4.9 (4.3-11.1) K/mcL Hgb 10.9 L (11.5-15.4) g/dL Hct 31.4 L (35.3-44.9) % Plt Count 184 (140-400) K/mcL Neutrophils # 1.7 (1.6-8.9) K/mcL BMP 03/24/18 04:10 Sodium 140 Potassium 3.7 Chloride 110 H Carbon Dioxide 24 BUN 10 Creatinine 0.84 Glucose 41 L Calcium 8.7 Consult Discharge Plan - Plan Referrals: Jaylan Moran MD [Primary Care Provider] -
[2018-03-24] MEDS ORDERED: *HR* Promethazine 25 MG/ML VIAL IVP ONE (18:53)
[2018-03-24] MEDS: Gabapentin 100 MG CAPSULE PO SCH (21:07)
[2018-03-24] MEDS: *HR* Dextrose 50 % in Water (Syg) 50 ML SYRINGE IVP PRN (23:53)
[2018-03-25] MEDS: Insulin LISPRO 300 UNITS/3 ML VIAL SQ SCH ×2 (04:02→07:43)
[2018-03-25] MEDS: *HR* Dextrose 50 % in Water (Syg) 50 ML SYRINGE IVP PRN ×4 (04:05→08:55)
[2018-03-25] MEDS: Pantoprazole 40 MG VIAL IVP SCH (07:42)
[2018-03-25] MEDS: Orphenadrine 100 MG TABLET.ER PO SCH (07:42)
[2018-03-25] MEDS: *HR* FentaNYL (PF) 100 MCG/2 ML VIAL IVP PRN (07:43)
[2018-03-25] MEDS: PATIENT TAKING PO SCH (07:43)
[2018-03-25] MEDS: Ondansetron 4 MG/2 ML VIAL IVP PRN (07:43)
[2018-03-25] MEDS: Cholecalciferol (D-3) 1,000 UNIT TABLET PO SCH (07:44)
[2018-03-25] MEDS: [UNRECOGNIZED DRUG - OTHER] PO SCH (07:44)
[2018-03-25] MEDS: *HR* LORazepam 1 MG TABLET PO PRN (08:57)
[2018-03-25 11:27] VITALS: BP 145/81
[2018-03-25] MEDS: 0.9 % Sodium Chloride 1,000 ML IVC SCH (11:40)
--- NOTE | 2018-03-25 12:49 | Internal Med Progress Note ---
Date of Encounter: 03/25/18 Time of Encounter: 12:46 - Assessment and plan (1) Hyperglycemia Status: Acute Assessment and plan: 37-year-old female with past medical history of insulin-dependent diabetes mellitus presented with nausea vomiting, abdominal pain, unable to urinate. EG was found as 700 upon admission without acidosis. She has a insulin pump and she reported check insulin at home regularly. Insulin pump malfunction was suspected and was suspended. Patient was started on insulin sliding scale and BG currently was controlled. - She was found to be hypoglycemic, insulin pump on hold, continue insulin sliding scale. (2) Urinary retention Status: Acute Assessment and plan: Activity due to uncontrolled hyperglycemia, started patient on Urecholine, Valle catheter removal yesterday, however, patient still unable to urinate. We will straight catheter the patient. (3) Nausea & vomiting Status: Acute Assessment and plan: Symptoms not likely caused by uncontrolled diabetes. Supportive care with IV fluid, tight blood glucose control. Qualifiers: Vomiting type: unspecified Vomiting Intractability: non-intractable Qualified Code(s): R11.2 - Nausea with vomiting, unspecified (4) Gastroparesis Status: Chronic Assessment and plan: Tight blood glucose control. 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 (6) Hypertension Status: Chronic Assessment and plan: BP controlled, continue home medications. Qualifiers: Hypertension type: essential hypertension Qualified Code(s): I10 - Essential (primary) hypertension (7) HLD (hyperlipidemia) Status: Chronic Assessment and plan: Continue home medication. Qualifiers: Hyperlipidemia type: unspecified Qualified Code(s): E78.5 - Hyperlipidemia , unspecified - Time Spent With Patient Total time spent is greater than 50% in coordination of care (as documented) at patient's floor/unit and/or counseling patient: Greater than 35 minutes - Subjective Interval history: Patient's complaining abdominal pain, and nausea and vomiting. requesting pain medication. She states she is still unable to urinate. She was not able to eat food due to nausea. - Constitutional Vitals: Temp Pulse Resp BP Pulse Ox 98.1 F 75 18 145/81 99 03/25/18 11:26 03/25/18 11:26 03/25/18 11:26 03/25/18 11:03/25/18 11:26 General appearance: Present: A&O X 3, answers questions appropriately Exam: PHYSICAL EXAMINATION: GENERAL APPEARANCE: The patient is alert, oriented and in no acute distress. HEENT: Head is normocephalic. The sinuses are nontender. Pupils are equal and reactive. The nares are patent. Oropharynx clear without lesions. NECK: Supple without lymphadenopathy. HEART: Regular rate and rhythm. LUNGS: No crackles or wheezes are heard. ABDOMEN: Soft, nontender, nondistended with good bowel sounds heard. Inguinal area is normal. EXTREMITIES: Without cyanosis, clubbing or edema. NEUROLOGICAL: Gross nonfocal. SKIN: Warm and dry without any rash. Internal Medicine: Result - Labs CBC & Chem 7: 03/24/18 04:10 03/24/18 04:10 Consult Discharge Plan - Plan Referrals: Jaylan Moran MD [Primary Care Provider] - (Your appointment has been requested. Our offices will call you with a follow up appointment time and date. Thank You. )
--- NOTE | 2018-03-25 12:54 | Event Note ---
Date of Encounter: 03/25/18 Time of Encounter: 12:54 Patient wants to leave the hospital, she signed AMA form.
== END 2018-03-25 12:13 | disposition left against medical advice (07) ==
LOC: 3BNU 23:16 → EMEROO 23:16 → 3BNU 03-23 10:51
PROVIDERS: ADMIT Internal Medicine; ATTEND Internal Medicine

== ENCOUNTER 2018-05-11 02:28 | Observation (INO) ==
--- NOTE | 2018-05-11 03:34 | Emergency Department Note ---
Disposition Clinical Impression: Hyperglycemia, Hyperkalemia Disposition: Admitted As Inpatient Condition: Fair Referrals: Jaylan Moran MD [Primary Care Provider] - Forms: ED Satisfaction Letter, Work/School Release General Adult HPI - General Chief complaint: ED General Medical Stated complaint: URI/chest pain/SoB Time Seen by Provider: 05/11/18 03:05 Source: patient Limitations: no limitations Nursing Notes Reviewed: Yes Vital Signs Reviewed: Yes - History of Present Illness HPI Narrative: 37 year old female with history of type 1 diabetes, on insulin pump, smoker presents with chest pain and shortness of breath. Pt reported worsening dry cough in the past 1-2 days. And started constent chest pain since yesterday. Associate with shortness of breath. Pt also reported not able to urinate for 30 hours. Pt stated she usually had urinary retention when she was sick. Pt reported nausea, no vomiting. No chills and fever. Pt stated her blood sugar was running high lately. Onset (ago): day(s) (1) Location: chest Pain Scale: 8 Consistency: constant - Related Data Home Medications Medication Instructions Recorded Confirmed Esomeprazole Magnesium [Nexium] 40 mg PO DAILY 01/20/18 05/11/18 Estradiol [Estradiol] 2 mg PO DAILY 01/20/18 05/11/18 LORazepam [Lorazepam] 2 mg PO TID PRN 01/20/18 05/11/18 Levomefolate/B6/B12/Algal Oil 1 cap PO BID 01/20/18 05/11/18 [Metanx Capsule] Lisinopril [Zestril] 10 mg PO DAILY 01/20/18 05/11/18 Rosuvastatin [Crestor] 20 mg PO HS 01/20/18 05/11/18 Subcutaneous Insulin Pump [T:Slim] 1 each MC ONCE 01/20/18 05/11/18 Cholecalciferol (Vitamin D3) 800 unit PO DAILY 03/21/18 05/11/18 [Vitamin D3] Orphenadrine Citrate 100 mg PO BID 03/21/18 05/11/18 Quetiapine Fumarate [Seroquel] 50 - 200 mg PO HS PRN 03/21/18 05/11/18 Gabapentin [Neurontin] 100 mg PO TID 03/30/18 05/11/18 Ondansetron [Zofran] 8 mg PO Q8HR 03/30/18 05/11/18 Promethazine [Phenergan] 12.5 mg PO Q6HR 03/30/18 05/11/18 Previous Rx's Medication Instructions Recorded Guaifenesin [Mucinex] 1,200 mg PO BID #20 tbbp.12hr 05/10/18 Allergies Allergy/AdvReac Type Severity Reaction Status Date / Time acetaminophen [From Tylenol] Allergy Rash Verified 03/30/18 20:59 azithromycin Allergy Hives Verified 03/30/18 20:59 Cortisone Allergy Swelling Verified 03/30/18 20:59 of Lip/Tongue/Throat hydrocodone Allergy Anaphylaxis Verified 03/30/18 20:59 ketorolac [From Toradol] Allergy Swelling Verified 03/30/18 20:59 of Lip/Tongue/Throat latex Allergy Rash Verified 03/30/18 20:59 morphine Allergy Anaphylaxis Verified 03/30/18 20:59 NSAIDS (Non-Steroidal Allergy Swelling Verified 03/30/18 20:59 Anti-Inflamma of Lip/Tongue/Throat Amoxicillin AdvReac Hives Verified 05/10/18 17:34 metoclopramide [From Reglan] AdvReac Vomiting Verified 03/30/18 20:59 tramadol [From Ultram] AdvReac Vomiting Verified 03/30/18 20:59 Constitutional: Denies: fever, chills, weakness, weight change Eyes: Denies: eye pain, eye discharge, vision change ENT ED: Denies: ear pain, throat pain, dental pain, hearing loss, epistaxis, congestion, dysphagia Cardiovascular: Reports: chest pain. Denies: palpitations, dyspnea on exertion , edema, syncope Respiratory: Reports: dyspnea. Denies: cough, wheezes, hemoptysis, stridor Gastrointestinal: Reports: nausea. Denies: abdominal pain, vomiting, diarrhea, constipation, hematemesis, melena, hematochezia Genitourinary: Denies: dysuria, frequency, hematuria, discharge Musculoskeletal: Denies: back pain, neck pain, arthralgia, myalgia Integumentary: Denies: rash, abrasion, lesions Neurological: Denies: headache, weakness, numbness, paresthesias, confusion, abnormal gait, vertigo Psychiatric: Denies: anxiety, depression, suicidal thoughts, homicidal thoughts , auditory hallucinations, visual hallucinations Endocrine: Denies: fatigue Hematological/Lymphatic: Denies: easy bleeding, easy bruising Allergic/Immunologic: Denies: facial swelling, urticaria Past Medical History - Past Medical History Medical history: Reports: asthma, diabetes, GERD, hyperlipidemia, hypertension, other Surgical history: Reports: appendectomy, cholecystectomy, hysterectomy, knee replacement, orthopedic, other (Right shoulder repair, carpal tunnel) Psychiatric history: Reports: anxiety, depression, panic disorder [employer] history: Reports: other - Social History Smoking Status: Current every day smoker Smokeless Tobacco Status: No Alcohol use: Reports: none Drug use: Reports: none Physical Exam - General Limitations: no limitations General appearance: alert, in no apparent distress - Head Head exam: atraumatic, normocephalic, normal inspection - Eye Eye exam: Present: normal appearance, PERRL, EOMI. Absent: scleral icterus, conjunctival injection - ENT ENT exam: normal exam, normal oropharynx, mucous membranes moist - Neck Neck exam: Present: normal inspection, full ROM, trachea midline - Chest Chest inspection: Present: normal inspection, symmetric chest wall rise - Respiratory Respiratory exam: Present: normal lung sounds bilaterally - Cardiovascular Cardiovascular exam: Present: regular rate, normal rhythm, normal heart sounds - Abdominal Exam Abdominal exam: Present: soft, tenderness (superpubic tender to palpation). Absent: distention, guarding, rebound, rigidity - Extremities Exam Extremities exam: Present: normal inspection, full ROM. Absent: tenderness, pedal edema - Back Exam Back exam: Present: normal inspection, full ROM. Absent: tenderness - Neurological Exam Neurological exam: Present: alert, oriented X3 - Psychiatric Psychiatric exam: Present: normal affect, normal mood - Skin Skin exam: Present: warm, dry, intact, normal color Course Vital Signs Temperature 98.6 F 05/11/18 02:33 Pulse Rate 91 05/11/18 02:33 Respiratory Rate 16 05/11/18 02:33 Blood Pressure 168/89 05/11/18 02:33 O2 Sat by Pulse Oximetry 99 05/11/18 02:33 Temperature 98.6 F 05/11/18 02:33 Pulse Rate 107 05/11/18 07:19 Respiratory Rate 16 05/11/18 07:19 Blood Pressure 123/71 05/11/18 07:19 O2 Sat by Pulse Oximetry 100 05/11/18 07:19 Oxygen Delivery Oxygen Delivery Room Air Medical Decision Making - MDM Narrative Medical decision making narrative: 37 year old female with history of diabetes and insulin pump presents with chest pain, shortness of breath, nausea, urinary retention for 24 to 30 hours. No chills and fever. Physical exam: pt seems fatigue, bilateral lungs are clear , suparpubic tender to palpation. Valle catheter inserted, 1500 ml residual urine came out. Labs: Glucose >500, potassium 6.5. d-dimer >700, CTA ordered. Dr. Covarrubias saw the patient. Calsium, albuterol and insulin 10 units (IV) given in ER to treat hyperkalemia. Glucose was held due to pt's BG level higher than 500. Pt will be admitted to hospital for hyperglycemia and hyperkalemia with CTA pending. Hospitalist paged. Transfer care to [facility] due to shift change. - Lab Data Lab results reviewed: Yes I reviewed the patient's lab results. Result diagrams: 05/11/18 03:56 05/11/18 03:56 Lab Results 05/11/18 05/11/18 05/11/18 Range/Units 03:56 03:56 03:56 WBC 5.8 (4.3-11.1) K/mcL RBC 4.05 (3.82-4.97) M/mcL Hgb 12.1 (11.5-15.4) g/dL Hct 35.9 (35.3-44.9) % MCV 88.6 (83.0-100.0) fL MCH 29.9 (28.0-33.3) pg MCHC 33.7 (31.6-35.5) g/dL RDW 13.2 (11.5-14.5) % Plt Count 176 (140-400) K/mcL MPV 10.4 (9.4-12.4) fL Immature Gran % 0.2 (0-4) % Seg Neutrophils % 61.0 % Lymphocytes % 24.4 % Monocytes % 4.0 % Eosinophils % 9.5 % Basophils % 0.9 % Neutrophils # 3.5 (1.6-8.9) K/mcL Lymphocytes # 1.4 (0.6-4.6) K/mcL Monocytes # 0.2 (0.0-1.3) K/mcL Eosinophils # 0.6 (0.0-0.6) K/mcL Basophils # 0.1 (0.0-0.2) K/mcL D-Dimer 765 H (0-500) ng/mLFEU VBG pH (7.32-7.42) pH Units VBG pCO2 (41-51) mmHg VBG pO2 (25-50) mmHg VBG HCO3 (21-27) mEq/L Sodium 129 L (136-145) mEq/L Potassium 6.5 H* (3.5-5.1) mEq/L Chloride 101 (98-107) mEq/L Carbon Dioxide 21 L (23-29) mEq/L BUN 15 (6-20) mg/dL Creatinine 0.95 (0.60-1.20) mg/dL Est GFR ( Amer) > 60 (> 60) Est GFR (Non-Af Amer) > 60 (> 60) BUN/Creatinine Ratio 16 (6-26) Glucose 556 H* (70-105) mg/dL POC Glucose (70-99) mg/dL Calculated Osmolality 294 (280-300) Calcium 8.8 (8.6-10.3) mg/dL Total Bilirubin 0.5 (0.3-1.0) mg/dL AST 29 (13-39) Units/L ALT 34 (7-52) Units/L Alkaline Phosphatase 124 H (34-104) Units/L Troponin I < 0.03 (< 0.04) ng/mL Serum Total Protein 7.0 (6.4-8.9) g/dL Albumin 3.7 (3.5-5.7) g/dL Globulin 3.3 (2.4-3.5) g/dL Albumin/Globulin Ratio 1.1 (1.1-2.2) Beta-Hydroxybutyric Acd (0.02-0.27) mmol/L Urine Color (Yellow) Urine Clarity (Clear) Urine pH (5.0-8.0) pH Units Ur Specific [place] (1.010-1.025) Urine Protein (Neg-Trace) mg/dL Urine Glucose (UA) (Normal) mg/dL Urine Ketones (Negative) mg/dL Urine Blood (Negative) Urine Nitrite (Negative) Urine Bilirubin (Negative) Urine Urobilinogen (Normal) mg/dL Ur Leukocyte Esterase (Negative) Urine Microscopic RBC (0-3) per hpf Urine Microscopic WBC (0-3) per hpf Ur Squamous Epith Cells (None-Few) per lpf Urine Bacteria (None-Few) per hpf Hyaline Casts (None-Few) per lpf Ur Culture Indicated? (NO) 05/11/18 05/11/18 05/11/18 Range/Units 03:56 04:20 05:58 WBC (4.3-11.1) K/mcL RBC (3.82-4.97) M/mcL Hgb (11.5-15.4) g/dL Hct (35.3-44.9) % MCV (83.0-100.0) fL MCH (28.0-33.3) pg MCHC (31.6-35.5) g/dL RDW (11.5-14.5) % Plt Count (140-400) K/mcL MPV (9.4-12.4) fL Immature Gran % (0-4) % Seg Neutrophils % % Lymphocytes % % Monocytes % % Eosinophils % % Basophils % % Neutrophils # (1.6-8.9) K/mcL Lymphocytes # (0.6-4.6) K/mcL Monocytes # (0.0-1.3) K/mcL Eosinophils # (0.0-0.6) K/mcL Basophils # (0.0-0.2) K/mcL D-Dimer (0-500) ng/mLFEU VBG pH 7.36 (7.32-7.42) pH Units VBG pCO2 41 (41-51) mmHg VBG pO2 96 H (25-50) mmHg VBG HCO3 23 (21-27) mEq/L Sodium (136-145) mEq/L Potassium (3.5-5.1) mEq/L Chloride (98-107) mEq/L Carbon Dioxide (23-29) mEq/L BUN (6-20) mg/dL Creatinine (0.60-1.20) mg/dL Est GFR ( Amer) (> 60) Est GFR (Non-Af Amer) (> 60) BUN/Creatinine Ratio (6-26) Glucose (70-105) mg/dL POC Glucose (70-99) mg/dL Calculated Osmolality (280-300) Calcium (8.6-10.3) mg/dL Total Bilirubin (0.3-1.0) mg/dL AST (13-39) Units/L ALT (7-52) Units/L Alkaline Phosphatase (34-104) Units/L Troponin I (< 0.04) ng/mL Serum Total Protein (6.4-8.9) g/dL Albumin (3.5-5.7) g/dL Globulin (2.4-3.5) g/dL Albumin/Globulin Ratio (1.1-2.2) Beta-Hydroxybutyric Acd 1.19 H (0.02-0.27) mmol/L Urine Color Yellow (Yellow) Urine Clarity Clear (Clear) Urine pH 7.0 (5.0-8.0) pH Units Ur Specific [place] 1.012 (1.010-1.025) Urine Protein Negative (Neg-Trace) mg/dL Urine Glucose (UA) >=1000 H (Normal) mg/dL Urine Ketones Negative (Negative) mg/dL Urine Blood Small H (Negative) Urine Nitrite Negative (Negative) Urine Bilirubin Negative (Negative) Urine Urobilinogen Normal (Normal) mg/dL Ur Leukocyte Esterase Negative (Negative) Urine Microscopic RBC 5-15 H (0-3) per hpf Urine Microscopic WBC 0-3 (0-3) per hpf Ur Squamous Epith Cells Few (None-Few) per lpf Urine Bacteria None Seen (None-Few) per hpf Hyaline Casts None Seen (None-Few) per lpf Ur Culture Indicated? NO (NO) 05/11/18 05/11/18 Range/Units 07:22 07:23 WBC (4.3-11.1) K/mcL RBC (3.82-4.97) M/mcL Hgb (11.5-15.4) g/dL Hct (35.3-44.9) % MCV (83.0-100.0) fL MCH (28.0-33.3) pg MCHC (31.6-35.5) g/dL RDW (11.5-14.5) % Plt Count (140-400) K/mcL MPV (9.4-12.4) fL Immature Gran % (0-4) % Seg Neutrophils % % Lymphocytes % % Monocytes % % Eosinophils % % Basophils % % Neutrophils # (1.6-8.9) K/mcL Lymphocytes # (0.6-4.6) K/mcL Monocytes # (0.0-1.3) K/mcL Eosinophils # (0.0-0.6) K/mcL Basophils # (0.0-0.2) K/mcL D-Dimer (0-500) ng/mLFEU VBG pH (7.32-7.42) pH Units VBG pCO2 (41-51) mmHg VBG pO2 (25-50) mmHg VBG HCO3 (21-27) mEq/L Sodium (136-145) mEq/L Potassium (3.5-5.1) mEq/L Chloride (98-107) mEq/L Carbon Dioxide (23-29) mEq/L BUN (6-20) mg/dL Creatinine (0.60-1.20) mg/dL Est GFR ( Amer) (> 60) Est GFR (Non-Af Amer) (> 60) BUN/Creatinine Ratio (6-26) Glucose (70-105) mg/dL POC Glucose 522 H* 514 H* (70-99) mg/dL Calculated Osmolality (280-300) Calcium (8.6-10.3) mg/dL Total Bilirubin (0.3-1.0) mg/dL AST (13-39) Units/L ALT (7-52) Units/L Alkaline Phosphatase (34-104) Units/L Troponin I (< 0.04) ng/mL Serum Total Protein (6.4-8.9) g/dL Albumin (3.5-5.7) g/dL Globulin (2.4-3.5) g/dL Albumin/Globulin Ratio (1.1-2.2) Beta-Hydroxybutyric Acd (0.02-0.27) mmol/L Urine Color (Yellow) Urine Clarity (Clear) Urine pH (5.0-8.0) pH Units Ur Specific [place] (1.010-1.025) Urine Protein (Neg-Trace) mg/dL Urine Glucose (UA) (Normal) mg/dL Urine Ketones (Negative) mg/dL Urine Blood (Negative) Urine Nitrite (Negative) Urine Bilirubin (Negative) Urine Urobilinogen (Normal) mg/dL Ur Leukocyte Esterase (Negative) Urine Microscopic RBC (0-3) per hpf Urine Microscopic WBC (0-3) per hpf Ur Squamous Epith Cells (None-Few) per lpf Urine Bacteria (None-Few) per hpf Hyaline Casts (None-Few) per lpf Ur Culture Indicated? (NO) - EKG Data EKG #1 EKG attestation: Yes I reviewed and interpreted this EKG. EKG shows normal: sinus rhythm Rate: normal [place]/QRS: normal Interpretation: normal EKG S.B.A.R. - S.[email or web address].AAsh Situation: Demographics, MOA Background: Presenting Complaint, Relevant PMH, Meds, & Allergies Assessment: Vital Signs, Course and respsone to treatment, Exam Concerns, Patient/Family Expectation, Pertinant Lab Results, Outstanding Labs Recommendation: Barrier(s) to disposition, Recommendation based on pending studies, treatments, or consults S.B.A.RChetan Report Given to: Jossue Henderson CNP SChetanBChetanAAsh Repor Time: 06:13
[2018-05-11 04:12] LABS: Basophils # 0.1 K/mcL (0.0-0.2); Basophils % 0.9 %; Eosinophils # 0.6 K/mcL (0.0-0.6); Eosinophils % 9.5 %; Hematocrit 35.9 % (35.3-44.9); Hemoglobin 12.1 g/dL (11.5-15.4); Immature Granulocytes % 0.2 % (0-4); Lymphocytes # 1.4 K/mcL (0.6-4.6); Lymphocytes % 24.4 %; Mean Corpuscular HGB Conc 33.7 g/dL (31.6-35.5); Mean Corpuscular Hemoglobin 29.9 pg (28.0-33.3); Mean Corpuscular Volume 88.6 fL (83.0-100.0); Mean Platelet Volume 10.4 fL (9.4-12.4); Monocytes # 0.2 K/mcL (0.0-1.3); Neutrophils # 3.5 K/mcL (1.6-8.9); Platelet Count 176 K/mcL (140-400); Red Blood Count 4.05 M/mcL (3.82-4.97); Red Cell Distribution Width 13.2 % (11.5-14.5)
[2018-05-11] MEDS ORDERED: Isovue-370 500 ML INFUS..BTL IV ONE (04:33)
[2018-05-11 04:37] LABS: Alanine Aminotransferase 34 Units/L (7-52); Albumin 3.7 g/dL (3.5-5.7); Albumin/Globulin Ratio 1.1 (1.1-2.2); Alkaline Phosphatase 124 Units/L (34-104); Aspartate Amino Transferase 29 Units/L (13-39); BUN/Creatinine Ratio 16 (6-26); Bilirubin,Total 0.5 mg/dL (0.3-1.0); Blood Urea Nitrogen 15 mg/dL (6-20); Calcium 8.8 mg/dL (8.6-10.3); Carbon Dioxide 21 mEq/L (23-29); Chloride 101 mEq/L (98-107); Globulin 3.3 g/dL (2.4-3.5); Glucose 556 mg/dL (70-105); Osmolality,Calculated 294 (280-300); Potassium 6.5 mEq/L (3.5-5.1); Sodium 129 mEq/L (136-145); Troponin I < 0.03 ng/mL (< 0.04); eGFR For Non-African Americans > 60 (> 60)
[2018-05-11 04:37] LABS: Bilirubin,Urine Negative (Negative); Blood,Urine Small (Negative); Clarity,Urine Clear (Clear); Color,Urine Yellow (Yellow); Glucose,Urine (UA) >=1000 mg/dL (Normal); Ketones,Urine Negative (Negative); Leukocyte Esterase,Urine Negative (Negative); Nitrite,Urine Negative (Negative); Protein,Urine Negative (Neg-Trace); Specific Gravity,Urine 1.012 (1.010-1.025); Urobilinogen,Urine Normal (Normal)
[2018-05-11 04:39] LABS: Bacteria,Urine None Seen per hpf (None-Few); Hyaline Casts,Urine None Seen per lpf (None-Few); Squamous Epithelial Cell,Urine Few per lpf (None-Few); WBC,Urine 0-3 per hpf (0-3)
[2018-05-11] MEDS ORDERED: Insulin Regular, Human 100 UNIT/ML SQ ONE (04:47)
[2018-05-11] MEDS ORDERED: 0.9 % Sodium Chloride 1,000 ML IVC ONE (04:56)
[2018-05-11] MEDS ORDERED: Insulin Human Regular 10 UNIT in 0.9 % Sodium Chloride 10 ML IV ONE (04:57)
[2018-05-11] MEDS ORDERED: Albuterol 2.5 MG/3 ML NEBULIZER IH ONE (04:59)
[2018-05-11] MEDS ORDERED: *HR* FentaNYL (PF) 100 MCG/2 ML VIAL IVP ONE (05:45)
[2018-05-11] MEDS ORDERED: Prochlorperazine 10 MG/2 ML VIAL IVP ONE (05:47)
[2018-05-11 06:02] LABS: VBG HCO3 23 mEq/L (21-27); VBG PCO2 41 mmHg (41-51); VBG PH 7.36 pH Units (7.32-7.42); VBG PO2 96 mmHg (25-50)
--- NOTE | 2018-05-11 06:57 | Emergency Department Note ---
Disposition Clinical Impression: Hyperglycemia, Hyperkalemia Disposition: Admitted As Inpatient Condition: Fair Referrals: Jaylan Moran MD [Primary Care Provider] - Forms: ED Satisfaction Letter, Work/School Release Time of Disposition: 06:57 General Adult HPI - General Chief complaint: ED General Medical Stated complaint: URI/chest pain/SoB Time Seen by Provider: 05/11/18 03:05 Source: patient Limitations: no limitations - History of Present Illness Location: chest Pain Scale: 8 - Related Data Home Medications Medication Instructions Recorded Confirmed Esomeprazole Magnesium [Nexium] 40 mg PO BID 01/20/18 05/10/18 Estradiol [Estradiol] 2 mg PO DAILY 01/20/18 05/10/18 LORazepam [Lorazepam] 2 mg PO TID PRN 01/20/18 05/10/18 Levomefolate/B6/B12/Algal Oil 1 cap PO BID 01/20/18 05/10/18 [Metanx Capsule] Lisinopril [Zestril] 10 mg PO DAILY 01/20/18 05/10/18 Rosuvastatin [Crestor] 20 mg PO HS 01/20/18 05/10/18 Subcutaneous Insulin Pump [T:Slim] 1 each MC ONCE 01/20/18 05/10/18 Cholecalciferol (Vitamin D3) 800 unit PO DAILY 03/21/18 05/10/18 [Vitamin D3] Gabapentin [Neurontin] 100 mg PO HS 03/21/18 05/10/18 Orphenadrine Citrate 100 mg PO BID 03/21/18 05/10/18 Quetiapine Fumarate [Seroquel] 50 - 200 mg PO HS PRN 03/21/18 05/10/18 Gabapentin [Neurontin] 100 mg PO TID 03/30/18 05/10/18 Ondansetron [Zofran] 8 mg PO Q8HR 03/30/18 05/10/18 Orphenadrine [Norflex] 100 mg PO DAILY 03/30/18 05/10/18 Promethazine [Phenergan] 12.5 mg PO Q6HR 03/30/18 05/10/18 Previous Rx's Medication Instructions Recorded Guaifenesin [Mucinex] 1,200 mg PO BID #20 tbbp.12hr 05/10/18 levoFLOXacin [Levaquin] 500 mg PO DAILY #10 tablet 05/10/18 Allergies Allergy/AdvReac Type Severity Reaction Status Date / Time acetaminophen [From Tylenol] Allergy Rash Verified 03/30/18 20:59 azithromycin Allergy Hives Verified 03/30/18 20:59 Cortisone Allergy Swelling Verified 03/30/18 20:59 of Lip/Tongue/Throat hydrocodone Allergy Anaphylaxis Verified 03/30/18 20:59 ketorolac [From Toradol] Allergy Swelling Verified 03/30/18 20:59 of Lip/Tongue/Throat latex Allergy Rash Verified 03/30/18 20:59 morphine Allergy Anaphylaxis Verified 03/30/18 20:59 NSAIDS (Non-Steroidal Allergy Swelling Verified 03/30/18 20:59 Anti-Inflamma of Lip/Tongue/Throat Amoxicillin AdvReac Hives Verified 05/10/18 17:34 metoclopramide [From Reglan] AdvReac Vomiting Verified 03/30/18 20:59 tramadol [From Ultram] AdvReac Vomiting Verified 03/30/18 20:59 Constitutional: Denies: fever, chills, weakness, weight change Eyes: Denies: eye pain, eye discharge, vision change ENT ED: Denies: ear pain, throat pain, dental pain, hearing loss, epistaxis, congestion, dysphagia Cardiovascular: Reports: chest pain. Denies: palpitations, dyspnea on exertion , edema, syncope Respiratory: Reports: dyspnea. Denies: cough, wheezes, hemoptysis, stridor Gastrointestinal: Reports: nausea. Denies: abdominal pain, vomiting, diarrhea, constipation, hematemesis, melena, hematochezia Genitourinary: Denies: dysuria, frequency, hematuria, discharge Musculoskeletal: Denies: back pain, neck pain, arthralgia, myalgia Integumentary: Denies: rash, abrasion, lesions Neurological: Denies: headache, weakness, numbness, paresthesias, confusion, abnormal gait, vertigo Psychiatric: Denies: anxiety, depression, suicidal thoughts, homicidal thoughts , auditory hallucinations, visual hallucinations Endocrine: Denies: fatigue Hematological/Lymphatic: Denies: easy bleeding, easy bruising Allergic/Immunologic: Denies: facial swelling, urticaria Past Medical History - Past Medical History Medical history: Reports: asthma, diabetes, GERD, hyperlipidemia, hypertension, other Surgical history: Reports: appendectomy, cholecystectomy, hysterectomy, knee replacement, orthopedic, other (Right shoulder repair, carpal tunnel) Psychiatric history: Reports: anxiety, depression, panic disorder [employer] history: Reports: other - Social History Smoking Status: Current every day smoker Smokeless Tobacco Status: No Alcohol use: Reports: none Drug use: Reports: none Physical Exam - General Limitations: no limitations General appearance: alert, in no apparent distress Course Course Narrative: 0600: I have assumed care of this patient from Chris Ellison CNP due to mid-level shift change. Please see Chris's documentation for care performed prior to my arrival. Briefly, this is a 37-year-old female is well-known to this facility with a history of type 1 diabetes and an insulin pump. She presented for complaints of midsternal chest pain, shortness of breath, difficulty urinating, and nausea. Blood glucose was found to be elevated and greater than 500. She was hyperkalemic at 6.5. She was given albuterol, calcium gluconate, regular insulin by IV and IV fluid. Her d-dimer was elevated at greater than 700. At this time, CTA of the chest is pending. The patient will be admitted to the hospital service for further evaluation and management. Dr. Covarrubias has had a [id number] evaluation with this patient and agrees with this plan. 0650: I spoke with Dr. Stewart, hospitalist on-call. Dr. Augustin accepts the patient for admission to the hospitalist services. He does request that Kayexalate be given by mouth in addition to the aforementioned medications. Vital Signs Temperature 98.6 F 05/11/18 02:33 Pulse Rate 91 05/11/18 02:33 Respiratory Rate 16 05/11/18 02:33 Blood Pressure 168/89 05/11/18 02:33 O2 Sat by Pulse Oximetry 99 05/11/18 02:33 Temperature 98.6 F 05/11/18 02:33 Pulse Rate 107 05/11/18 05:58 Respiratory Rate 19 05/11/18 05:58 Blood Pressure 132/81 05/11/18 05:58 O2 Sat by Pulse Oximetry 97 05/11/18 05:58 Oxygen Delivery Oxygen Delivery Room Air Medical Decision Making - Medical Records Medical records reviewed: Yes I reviewed the patient's medical records. - Lab Data Lab results reviewed: Yes I reviewed the patient's lab results. Lab results narrative: Lab Results 05/11/18 05/11/18 05/11/18 Range/Units 03:56 03:56 03:56 WBC 5.8 (4.3-11.1) K/mcL RBC 4.05 (3.82-4.97) M/mcL Hgb 12.1 (11.5-15.4) g/dL Hct 35.9 (35.3-44.9) % MCV 88.6 (83.0-100.0) fL MCH 29.9 (28.0-33.3) pg MCHC 33.7 (31.6-35.5) g/dL RDW 13.2 (11.5-14.5) % Plt Count 176 (140-400) K/mcL MPV 10.4 (9.4-12.4) fL Immature Gran % 0.2 (0-4) % Seg Neutrophils % 61.0 % Lymphocytes % 24.4 % Monocytes % 4.0 % Eosinophils % 9.5 % Basophils % 0.9 % Neutrophils # 3.5 (1.6-8.9) K/mcL Lymphocytes # 1.4 (0.6-4.6) K/mcL Monocytes # 0.2 (0.0-1.3) K/mcL Eosinophils # 0.6 (0.0-0.6) K/mcL Basophils # 0.1 (0.0-0.2) K/mcL D-Dimer 765 H (0-500) ng/mLFEU VBG pH (7.32-7.42) pH Units VBG pCO2 (41-51) mmHg VBG pO2 (25-50) mmHg VBG HCO3 (21-27) mEq/L Sodium 129 L (136-145) mEq/L Potassium 6.5 H* (3.5-5.1) mEq/L Chloride 101 (98-107) mEq/L Carbon Dioxide 21 L (23-29) mEq/L BUN 15 (6-20) mg/dL Creatinine 0.95 (0.60-1.20) mg/dL Est GFR ( Amer) > 60 (> 60) Est GFR (Non-Af Amer) > 60 (> 60) BUN/Creatinine Ratio 16 (6-26) Glucose 556 H* (70-105) mg/dL Calculated Osmolality 294 (280-300) Calcium 8.8 (8.6-10.3) mg/dL Total Bilirubin 0.5 (0.3-1.0) mg/dL AST 29 (13-39) Units/L ALT 34 (7-52) Units/L Alkaline Phosphatase 124 H (34-104) Units/L Troponin I < 0.03 (< 0.04) ng/mL Serum Total Protein 7.0 (6.4-8.9) g/dL Albumin 3.7 (3.5-5.7) g/dL Globulin 3.3 (2.4-3.5) g/dL Albumin/Globulin Ratio 1.1 (1.1-2.2) Beta-Hydroxybutyric Acd (0.02-0.27) mmol/L Urine Color (Yellow) Urine Clarity (Clear) Urine pH (5.0-8.0) pH Units Ur Specific [place] (1.010-1.025) Urine Protein (Neg-Trace) mg/dL Urine Glucose (UA) (Normal) mg/dL Urine Ketones (Negative) mg/dL Urine Blood (Negative) Urine Nitrite (Negative) Urine Bilirubin (Negative) Urine Urobilinogen (Normal) mg/dL Ur Leukocyte Esterase (Negative) Urine Microscopic RBC (0-3) per hpf Urine Microscopic WBC (0-3) per hpf Ur Squamous Epith Cells (None-Few) per lpf Urine Bacteria (None-Few) per hpf Hyaline Casts (None-Few) per lpf Ur Culture Indicated? (NO) 05/11/18 05/11/18 05/11/18 Range/Units 03:56 04:20 05:58 WBC (4.3-11.1) K/mcL RBC (3.82-4.97) M/mcL Hgb (11.5-15.4) g/dL Hct (35.3-44.9) % MCV (83.0-100.0) fL MCH (28.0-33.3) pg MCHC (31.6-35.5) g/dL RDW (11.5-14.5) % Plt Count (140-400) K/mcL MPV (9.4-12.4) fL Immature Gran % (0-4) % Seg Neutrophils % % Lymphocytes % % Monocytes % % Eosinophils % % Basophils % % Neutrophils # (1.6-8.9) K/mcL Lymphocytes # (0.6-4.6) K/mcL Monocytes # (0.0-1.3) K/mcL Eosinophils # (0.0-0.6) K/mcL Basophils # (0.0-0.2) K/mcL D-Dimer (0-500) ng/mLFEU VBG pH 7.36 (7.32-7.42) pH Units VBG pCO2 41 (41-51) mmHg VBG pO2 96 H (25-50) mmHg VBG HCO3 23 (21-27) mEq/L Sodium (136-145) mEq/L Potassium (3.5-5.1) mEq/L Chloride (98-107) mEq/L Carbon Dioxide (23-29) mEq/L BUN (6-20) mg/dL Creatinine (0.60-1.20) mg/dL Est GFR ( Amer) (> 60) Est GFR (Non-Af Amer) (> 60) BUN/Creatinine Ratio (6-26) Glucose (70-105) mg/dL Calculated Osmolality (280-300) Calcium (8.6-10.3) mg/dL Total Bilirubin (0.3-1.0) mg/dL AST (13-39) Units/L ALT (7-52) Units/L Alkaline Phosphatase (34-104) Units/L Troponin I (< 0.04) ng/mL Serum Total Protein (6.4-8.9) g/dL Albumin (3.5-5.7) g/dL Globulin (2.4-3.5) g/dL Albumin/Globulin Ratio (1.1-2.2) Beta-Hydroxybutyric Acd 1.19 H (0.02-0.27) mmol/L Urine Color Yellow (Yellow) Urine Clarity Clear (Clear) Urine pH 7.0 (5.0-8.0) pH Units Ur Specific [place] 1.012 (1.010-1.025) Urine Protein Negative (Neg-Trace) mg/dL Urine Glucose (UA) >=1000 H (Normal) mg/dL Urine Ketones Negative (Negative) mg/dL Urine Blood Small H (Negative) Urine Nitrite Negative (Negative) Urine Bilirubin Negative (Negative) Urine Urobilinogen Normal (Normal) mg/dL Ur Leukocyte Esterase Negative (Negative) Urine Microscopic RBC 5-15 H (0-3) per hpf Urine Microscopic WBC 0-3 (0-3) per hpf Ur Squamous Epith Cells Few (None-Few) per lpf Urine Bacteria None Seen (None-Few) per hpf Hyaline Casts None Seen (None-Few) per lpf Ur Culture Indicated? NO (NO) Result diagrams: 05/11/18 03:56 05/11/18 03:56 Lab Results 05/11/18 05/11/18 05/11/18 Range/Units 03:56 03:56 03:56 WBC 5.8 (4.3-11.1) K/mcL RBC 4.05 (3.82-4.97) M/mcL Hgb 12.1 (11.5-15.4) g/dL Hct 35.9 (35.3-44.9) % MCV 88.6 (83.0-100.0) fL MCH 29.9 (28.0-33.3) pg MCHC 33.7 (31.6-35.5) g/dL RDW 13.2 (11.5-14.5) % Plt Count 176 (140-400) K/mcL MPV 10.4 (9.4-12.4) fL Immature Gran % 0.2 (0-4) % Seg Neutrophils % 61.0 % Lymphocytes % 24.4 % Monocytes % 4.0 % Eosinophils % 9.5 % Basophils % 0.9 % Neutrophils # 3.5 (1.6-8.9) K/mcL Lymphocytes # 1.4 (0.6-4.6) K/mcL Monocytes # 0.2 (0.0-1.3) K/mcL Eosinophils # 0.6 (0.0-0.6) K/mcL Basophils # 0.1 (0.0-0.2) K/mcL D-Dimer 765 H (0-500) ng/mLFEU VBG pH (7.32-7.42) pH Units VBG pCO2 (41-51) mmHg VBG pO2 (25-50) mmHg VBG HCO3 (21-27) mEq/L Sodium 129 L (136-145) mEq/L Potassium 6.5 H* (3.5-5.1) mEq/L Chloride 101 (98-107) mEq/L Carbon Dioxide 21 L (23-29) mEq/L BUN 15 (6-20) mg/dL Creatinine 0.95 (0.60-1.20) mg/dL Est GFR ( Amer) > 60 (> 60) Est GFR (Non-Af Amer) > 60 (> 60) BUN/Creatinine Ratio 16 (6-26) Glucose 556 H* (70-105) mg/dL Calculated Osmolality 294 (280-300) Calcium 8.8 (8.6-10.3) mg/dL Total Bilirubin 0.5 (0.3-1.0) mg/dL AST 29 (13-39) Units/L ALT 34 (7-52) Units/L Alkaline Phosphatase 124 H (34-104) Units/L Troponin I < 0.03 (< 0.04) ng/mL Serum Total Protein 7.0 (6.4-8.9) g/dL Albumin 3.7 (3.5-5.7) g/dL Globulin 3.3 (2.4-3.5) g/dL Albumin/Globulin Ratio 1.1 (1.1-2.2) Beta-Hydroxybutyric Acd (0.02-0.27) mmol/L Urine Color (Yellow) Urine Clarity (Clear) Urine pH (5.0-8.0) pH Units Ur Specific [place] (1.010-1.025) Urine Protein (Neg-Trace) mg/dL Urine Glucose (UA) (Normal) mg/dL Urine Ketones (Negative) mg/dL Urine Blood (Negative) Urine Nitrite (Negative) Urine Bilirubin (Negative) Urine Urobilinogen (Normal) mg/dL Ur Leukocyte Esterase (Negative) Urine Microscopic RBC (0-3) per hpf Urine Microscopic WBC (0-3) per hpf Ur Squamous Epith Cells (None-Few) per lpf Urine Bacteria (None-Few) per hpf Hyaline Casts (None-Few) per lpf Ur Culture Indicated? (NO) 05/11/18 05/11/18 05/11/18 Range/Units 03:56 04:20 05:58 WBC (4.3-11.1) K/mcL RBC (3.82-4.97) M/mcL Hgb (11.5-15.4) g/dL Hct (35.3-44.9) % MCV (83.0-100.0) fL MCH (28.0-33.3) pg MCHC (31.6-35.5) g/dL RDW (11.5-14.5) % Plt Count (140-400) K/mcL MPV (9.4-12.4) fL Immature Gran % (0-4) % Seg Neutrophils % % Lymphocytes % % Monocytes % % Eosinophils % % Basophils % % Neutrophils # (1.6-8.9) K/mcL Lymphocytes # (0.6-4.6) K/mcL Monocytes # (0.0-1.3) K/mcL Eosinophils # (0.0-0.6) K/mcL Basophils # (0.0-0.2) K/mcL D-Dimer (0-500) ng/mLFEU VBG pH 7.36 (7.32-7.42) pH Units VBG pCO2 41 (41-51) mmHg VBG pO2 96 H (25-50) mmHg VBG HCO3 23 (21-27) mEq/L Sodium (136-145) mEq/L Potassium (3.5-5.1) mEq/L Chloride (98-107) mEq/L Carbon Dioxide (23-29) mEq/L BUN (6-20) mg/dL Creatinine (0.60-1.20) mg/dL Est GFR ( Amer) (> 60) Est GFR (Non-Af Amer) (> 60) BUN/Creatinine Ratio (6-26) Glucose (70-105) mg/dL Calculated Osmolality (280-300) Calcium (8.6-10.3) mg/dL Total Bilirubin (0.3-1.0) mg/dL AST (13-39) Units/L ALT (7-52) Units/L Alkaline Phosphatase (34-104) Units/L Troponin I (< 0.04) ng/mL Serum Total Protein (6.4-8.9) g/dL Albumin (3.5-5.7) g/dL Globulin (2.4-3.5) g/dL Albumin/Globulin Ratio (1.1-2.2) Beta-Hydroxybutyric Acd 1.19 H (0.02-0.27) mmol/L Urine Color Yellow (Yellow) Urine Clarity Clear (Clear) Urine pH 7.0 (5.0-8.0) pH Units Ur Specific [place] 1.012 (1.010-1.025) Urine Protein Negative (Neg-Trace) mg/dL Urine Glucose (UA) >=1000 H (Normal) mg/dL Urine Ketones Negative (Negative) mg/dL Urine Blood Small H (Negative) Urine Nitrite Negative (Negative) Urine Bilirubin Negative (Negative) Urine Urobilinogen Normal (Normal) mg/dL Ur Leukocyte Esterase Negative (Negative) Urine Microscopic RBC 5-15 H (0-3) per hpf Urine Microscopic WBC 0-3 (0-3) per hpf Ur Squamous Epith Cells Few (None-Few) per lpf Urine Bacteria None Seen (None-Few) per hpf Hyaline Casts None Seen (None-Few) per lpf Ur Culture Indicated? NO (NO) - Radiology Data Radiology results reviewed: Yes I reviewed the patient's radiology results. Chest CTA 05/11/18 04:33 IMPRESSION: Negative for acute pulmonary embolism. Severe airway inflammation may be seen with asthma, bronchitis or smoking. No consolidative airspace disease. D/ / Ernie Manley / Ernie Manley Interpreting Provider: Ernie Manley - EKG Data EKG #1 EKG attestation: Yes I reviewed and interpreted this EKG. EKG results narrative: EKG shows a sinus rhythm at a rate of 91 bpm. KS interval 165, QRS duration 89 , QT/QTc interval 365/450. No ectopy noted. No ST elevation.
--- NOTE | 2018-05-11 07:29 | Emergency Department Note ---
Disposition Clinical Impression: Hyperglycemia, Hyperkalemia Disposition: Admitted As Inpatient Condition: Fair Referrals: Jaylan Moran MD [Primary Care Provider] - Forms: ED Satisfaction Letter, Work/School Release General Adult HPI - General Chief complaint: ED General Medical Stated complaint: URI/chest pain/SoB Time Seen by Provider: 05/11/18 03:05 Source: patient Limitations: no limitations Nursing Notes Reviewed: Yes Vital Signs Reviewed: Yes - History of Present Illness Location: chest Pain Scale: 8 - Related Data Home Medications Medication Instructions Recorded Confirmed Esomeprazole Magnesium [Nexium] 40 mg PO BID 01/20/18 05/10/18 Estradiol [Estradiol] 2 mg PO DAILY 01/20/18 05/10/18 LORazepam [Lorazepam] 2 mg PO TID PRN 01/20/18 05/10/18 Levomefolate/B6/B12/Algal Oil 1 cap PO BID 01/20/18 05/10/18 [Metanx Capsule] Lisinopril [Zestril] 10 mg PO DAILY 01/20/18 05/10/18 Rosuvastatin [Crestor] 20 mg PO HS 01/20/18 05/10/18 Subcutaneous Insulin Pump [T:Slim] 1 each MC ONCE 01/20/18 05/10/18 Cholecalciferol (Vitamin D3) 800 unit PO DAILY 03/21/18 05/10/18 [Vitamin D3] Gabapentin [Neurontin] 100 mg PO HS 03/21/18 05/10/18 Orphenadrine Citrate 100 mg PO BID 03/21/18 05/10/18 Quetiapine Fumarate [Seroquel] 50 - 200 mg PO HS PRN 03/21/18 05/10/18 Gabapentin [Neurontin] 100 mg PO TID 03/30/18 05/10/18 Ondansetron [Zofran] 8 mg PO Q8HR 03/30/18 05/10/18 Orphenadrine [Norflex] 100 mg PO DAILY 03/30/18 05/10/18 Promethazine [Phenergan] 12.5 mg PO Q6HR 03/30/18 05/10/18 Previous Rx's Medication Instructions Recorded Guaifenesin [Mucinex] 1,200 mg PO BID #20 tbbp.12hr 05/10/18 Allergies Allergy/AdvReac Type Severity Reaction Status Date / Time acetaminophen [From Tylenol] Allergy Rash Verified 03/30/18 20:59 azithromycin Allergy Hives Verified 03/30/18 20:59 Cortisone Allergy Swelling Verified 03/30/18 20:59 of Lip/Tongue/Throat hydrocodone Allergy Anaphylaxis Verified 03/30/18 20:59 ketorolac [From Toradol] Allergy Swelling Verified 03/30/18 20:59 of Lip/Tongue/Throat latex Allergy Rash Verified 03/30/18 20:59 morphine Allergy Anaphylaxis Verified 03/30/18 20:59 NSAIDS (Non-Steroidal Allergy Swelling Verified 03/30/18 20:59 Anti-Inflamma of Lip/Tongue/Throat Amoxicillin AdvReac Hives Verified 05/10/18 17:34 metoclopramide [From Reglan] AdvReac Vomiting Verified 03/30/18 20:59 tramadol [From Ultram] AdvReac Vomiting Verified 03/30/18 20:59 Constitutional: Denies: fever, chills, weakness, weight change Eyes: Denies: eye pain, eye discharge, vision change ENT ED: Denies: ear pain, throat pain, dental pain, hearing loss, epistaxis, congestion, dysphagia Cardiovascular: Reports: chest pain. Denies: palpitations, dyspnea on exertion , edema, syncope Respiratory: Reports: dyspnea. Denies: cough, wheezes, hemoptysis, stridor Gastrointestinal: Reports: nausea. Denies: abdominal pain, vomiting, diarrhea, constipation, hematemesis, melena, hematochezia Genitourinary: Denies: dysuria, frequency, hematuria, discharge Musculoskeletal: Denies: back pain, neck pain, arthralgia, myalgia Integumentary: Denies: rash, abrasion, lesions Neurological: Denies: headache, weakness, numbness, paresthesias, confusion, abnormal gait, vertigo Psychiatric: Denies: anxiety, depression, suicidal thoughts, homicidal thoughts , auditory hallucinations, visual hallucinations Endocrine: Denies: fatigue Hematological/Lymphatic: Denies: easy bleeding, easy bruising Allergic/Immunologic: Denies: facial swelling, urticaria Past Medical History - Past Medical History Medical history: Reports: asthma, diabetes, GERD, hyperlipidemia, hypertension, other Surgical history: Reports: appendectomy, cholecystectomy, hysterectomy, knee replacement, orthopedic, other (Right shoulder repair, carpal tunnel) Psychiatric history: Reports: anxiety, depression, panic disorder 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 - Social History Smoking Status: Current every day smoker Smokeless Tobacco Status: No Alcohol use: Reports: none Drug use: Reports: none Physical Exam - General Limitations: no limitations General appearance: alert, in no apparent distress Course Vital Signs Temperature 98.6 F 05/11/18 02:33 Pulse Rate 91 05/11/18 02:33 Respiratory Rate 16 05/11/18 02:33 Blood Pressure 168/89 05/11/18 02:33 O2 Sat by Pulse Oximetry 99 05/11/18 02:33 Temperature 98.6 F 05/11/18 02:33 Pulse Rate 107 05/11/18 07:19 Respiratory Rate 16 05/11/18 07:19 Blood Pressure 123/71 05/11/18 07:19 O2 Sat by Pulse Oximetry 100 05/11/18 07:19 Oxygen Delivery Oxygen Delivery Room Air Medical Decision Making - Medical Records Medical records reviewed: Yes I reviewed the patient's medical records. - Lab Data Lab results reviewed: Yes I reviewed the patient's lab results. Result diagrams: 05/11/18 03:56 05/11/18 03:56 Lab Results 05/11/18 05/11/18 05/11/18 Range/Units 03:56 03:56 03:56 WBC 5.8 (4.3-11.1) K/mcL RBC 4.05 (3.82-4.97) M/mcL Hgb 12.1 (11.5-15.4) g/dL Hct 35.9 (35.3-44.9) % MCV 88.6 (83.0-100.0) fL MCH 29.9 (28.0-33.3) pg MCHC 33.7 (31.6-35.5) g/dL RDW 13.2 (11.5-14.5) % Plt Count 176 (140-400) K/mcL MPV 10.4 (9.4-12.4) fL Immature Gran % 0.2 (0-4) % Seg Neutrophils % 61.0 % Lymphocytes % 24.4 % Monocytes % 4.0 % Eosinophils % 9.5 % Basophils % 0.9 % Neutrophils # 3.5 (1.6-8.9) K/mcL Lymphocytes # 1.4 (0.6-4.6) K/mcL Monocytes # 0.2 (0.0-1.3) K/mcL Eosinophils # 0.6 (0.0-0.6) K/mcL Basophils # 0.1 (0.0-0.2) K/mcL D-Dimer 765 H (0-500) ng/mLFEU VBG pH (7.32-7.42) pH Units VBG pCO2 (41-51) mmHg VBG pO2 (25-50) mmHg VBG HCO3 (21-27) mEq/L Sodium 129 L (136-145) mEq/L Potassium 6.5 H* (3.5-5.1) mEq/L Chloride 101 (98-107) mEq/L Carbon Dioxide 21 L (23-29) mEq/L BUN 15 (6-20) mg/dL Creatinine 0.95 (0.60-1.20) mg/dL Est GFR ( Amer) > 60 (> 60) Est GFR (Non-Af Amer) > 60 (> 60) BUN/Creatinine Ratio 16 (6-26) Glucose 556 H* (70-105) mg/dL Calculated Osmolality 294 (280-300) Calcium 8.8 (8.6-10.3) mg/dL Total Bilirubin 0.5 (0.3-1.0) mg/dL AST 29 (13-39) Units/L ALT 34 (7-52) Units/L Alkaline Phosphatase 124 H (34-104) Units/L Troponin I < 0.03 (< 0.04) ng/mL Serum Total Protein 7.0 (6.4-8.9) g/dL Albumin 3.7 (3.5-5.7) g/dL Globulin 3.3 (2.4-3.5) g/dL Albumin/Globulin Ratio 1.1 (1.1-2.2) Beta-Hydroxybutyric Acd (0.02-0.27) mmol/L Urine Color (Yellow) Urine Clarity (Clear) Urine pH (5.0-8.0) pH Units Ur Specific [place] (1.010-1.025) Urine Protein (Neg-Trace) mg/dL Urine Glucose (UA) (Normal) mg/dL Urine Ketones (Negative) mg/dL Urine Blood (Negative) Urine Nitrite (Negative) Urine Bilirubin (Negative) Urine Urobilinogen (Normal) mg/dL Ur Leukocyte Esterase (Negative) Urine Microscopic RBC (0-3) per hpf Urine Microscopic WBC (0-3) per hpf Ur Squamous Epith Cells (None-Few) per lpf Urine Bacteria (None-Few) per hpf Hyaline Casts (None-Few) per lpf Ur Culture Indicated? (NO) 05/11/18 05/11/18 05/11/18 Range/Units 03:56 04:20 05:58 WBC (4.3-11.1) K/mcL RBC (3.82-4.97) M/mcL Hgb (11.5-15.4) g/dL Hct (35.3-44.9) % MCV (83.0-100.0) fL MCH (28.0-33.3) pg MCHC (31.6-35.5) g/dL RDW (11.5-14.5) % Plt Count (140-400) K/mcL MPV (9.4-12.4) fL Immature Gran % (0-4) % Seg Neutrophils % % Lymphocytes % % Monocytes % % Eosinophils % % Basophils % % Neutrophils # (1.6-8.9) K/mcL Lymphocytes # (0.6-4.6) K/mcL Monocytes # (0.0-1.3) K/mcL Eosinophils # (0.0-0.6) K/mcL Basophils # (0.0-0.2) K/mcL D-Dimer (0-500) ng/mLFEU VBG pH 7.36 (7.32-7.42) pH Units VBG pCO2 41 (41-51) mmHg VBG pO2 96 H (25-50) mmHg VBG HCO3 23 (21-27) mEq/L Sodium (136-145) mEq/L Potassium (3.5-5.1) mEq/L Chloride (98-107) mEq/L Carbon Dioxide (23-29) mEq/L BUN (6-20) mg/dL Creatinine (0.60-1.20) mg/dL Est GFR ( Amer) (> 60) Est GFR (Non-Af Amer) (> 60) BUN/Creatinine Ratio (6-26) Glucose (70-105) mg/dL Calculated Osmolality (280-300) Calcium (8.6-10.3) mg/dL Total Bilirubin (0.3-1.0) mg/dL AST (13-39) Units/L ALT (7-52) Units/L Alkaline Phosphatase (34-104) Units/L Troponin I (< 0.04) ng/mL Serum Total Protein (6.4-8.9) g/dL Albumin (3.5-5.7) g/dL Globulin (2.4-3.5) g/dL Albumin/Globulin Ratio (1.1-2.2) Beta-Hydroxybutyric Acd 1.19 H (0.02-0.27) mmol/L Urine Color Yellow (Yellow) Urine Clarity Clear (Clear) Urine pH 7.0 (5.0-8.0) pH Units Ur Specific [place] 1.012 (1.010-1.025) Urine Protein Negative (Neg-Trace) mg/dL Urine Glucose (UA) >=1000 H (Normal) mg/dL Urine Ketones Negative (Negative) mg/dL Urine Blood Small H (Negative) Urine Nitrite Negative (Negative) Urine Bilirubin Negative (Negative) Urine Urobilinogen Normal (Normal) mg/dL Ur Leukocyte Esterase Negative (Negative) Urine Microscopic RBC 5-15 H (0-3) per hpf Urine Microscopic WBC 0-3 (0-3) per hpf Ur Squamous Epith Cells Few (None-Few) per lpf Urine Bacteria None Seen (None-Few) per hpf Hyaline Casts None Seen (None-Few) per lpf Ur Culture Indicated? NO (NO) - Radiology Data Radiology results reviewed: Yes I reviewed the patient's radiology results. Chest CTA 05/11/18 04:33 IMPRESSION: Negative for acute pulmonary embolism. Severe airway inflammation may be seen with asthma, bronchitis or smoking. No consolidative airspace disease. D/ / Ernie Manley / Ernie Manley Interpreting Provider: Ernie Manley - EKG Data EKG #1 EKG attestation: Yes I reviewed and interpreted this EKG. EKG results narrative: EKG shows a normal sinus rhythm with ventricular rate of 91. No acute ST segment elevation or depression. No arrhythmia or ectopy. Normal EKG. Critical Care Time Critical Care Time: Yes Total Critical Care Time: 35 Attestation: Critical care performed: Time is exclusive of separately billable procedures. Time includes: direct patient care, patient reassessment, coordination of patient care, interpretation of data (laboratory data, radiology data, and respiratory data), review of patient's medical records, medical consultation and documentation of patient care. Procedures included in critical care time: Procedures excluded from critical care time: Attestation Statement - Attestation Attestation: I, Sanya Covarrubias MD, personally evaluated this patient and discussed their management with the midlevel provicer, PAC/SHIP RIGGER. I reviewed the midlevel provider 's note and agree with the documented findings, medical decision making, and plan of care. 37-year-old female presents to the emergency department with a complaint of increased shortness of breath with some chest tightness and discomfort for the past 1-2 days. Some increased cough. No sputum production. No definite fever but some chills and generalized body aches. Some nausea but no vomiting. She also complains of urinary retention for more than 24 hours. She states this happens usually when she gets sick. She has insulin-dependent diabetic with an insulin pump. She states her blood sugar has been running high. On examination patient is a well-developed well-nourished female in no acute distress. She is alert and oriented 3. There is no cyanosis or diaphoresis. Chest is nontender to palpation. Breath sounds are clear and equal bilaterally. Heart regular rate and rhythm. Abdomen is soft with normal bowel sounds. No significant tenderness on palpation. No tympany or distention. No guarding or rebound tenderness. No gross focal neurological deficits. Labs reviewed. Elevated d-dimer. Potassium 6.5. Glucose greater than 500. Positive serum ketones however pH is normal. CTA of the lungs obtained and showed no evidence of pulmonary embolism. There was some airway inflammation consistent with bronchitis, asthma, or smoking. All of which pertained to this patient. EKG shows a normal sinus rhythm with no acute changes. Patient's hyperkalemia treated with albuterol nebulizer, IV calcium, and IV insulin. She did not receive D50 as her blood sugar was already greater than 500 and the insulin will help treat this as well. The hospitalist, Dr. Augustin, was consulted and accepted admission of the patient.
[2018-05-11] MEDS ORDERED: *HR* Dextrose 50 % in Water (Syg) 50 ML SYRINGE IVP PRN ×2 (07:38→12:15)
[2018-05-11] MEDS ORDERED: Naloxone 0.4 MG/ML INJ IVP PRN (07:39)
[2018-05-11] MEDS ORDERED: *HR* LORazepam 1 MG TABLET PO PRN (07:40)
[2018-05-11] MEDS ORDERED: Ondansetron 4 MG/2 ML VIAL IVP PRN (07:44)
[2018-05-11] MEDS ORDERED: 0.9 % Sodium Chloride 1,000 ML IVC SCH (07:45)
[2018-05-11] MEDS ORDERED: Insulin Human Regular 100 UNIT in 0.9 % Sodium Chloride 100 ML IVC SCH (07:45)
[2018-05-11 08:17] LABS: BUN/Creatinine Ratio 16 (6-26); Blood Urea Nitrogen 16 mg/dL (6-20); Calcium 8.8 mg/dL (8.6-10.3); Carbon Dioxide 21 mEq/L (23-29); Chloride 104 mEq/L (98-107); Glucose 560 mg/dL (70-105); Osmolality,Calculated 301 (280-300); Potassium 4.2 mEq/L (3.5-5.1); Sodium 132 mEq/L (136-145); eGFR For Non-African Americans > 60 (> 60)
[2018-05-11] MEDS ORDERED: LEVOMEFOLATE PO SCH (09:00)
[2018-05-11] MEDS ORDERED: ALGAL OIL PO SCH (09:00)
[2018-05-11] MEDS ORDERED: B12 PO SCH (09:00)
[2018-05-11] MEDS ORDERED: Cholecalciferol (D-3) 1,000 UNIT TABLET PO SCH (09:00)
[2018-05-11] MEDS ORDERED: B6 PO SCH (09:00)
[2018-05-11] MEDS ORDERED: Orphenadrine 100 MG TABLET.ER PO SCH (09:00)
--- NOTE | 2018-05-11 09:29 | Internal Med History&Physical ---
Date of Encounter: 05/11/18 Time of Encounter: 09:20 Internal Medicine - H&P: HPI Chief complaint: abdominal pain, nausea and vomiting, with elevated blood sugar History of present illness: Ms. Gaming is a 37 year old female with pmh of type 2 diabetes mellitus recently placed on an insulin pump per patient, dyslipidemia, GERD, hypertension presening with complaints of elevated blood sugar, abdominal pain, nausea and vomiting and chest pain for past couple of days. Patient says she was placed on an insulin pump about a month ago, she hasn't been feeling too well in general. She came to the ER today because of her elevated blood sugar over 500 at home and some difficulty breathing which she says is consistent with her asthma exacerbation. She had also been having intermittent nausea and vomiting and abdominal pain for the last couple of days. Denies any diarrhea. Admits to subjective fevers and chills. Also complains of intermittent chest pain which she says is present on both sides of the chest wall and reproducible on palpation. In the ER, her sugars were noted to be over 500 and she had an elevated betahydroxybutyric acid, She was started on an insulin drip and is being admitted for further management Past Med Surg Social Fam HX - Past Medical History Medical history: asthma, diabetes, GERD, hyperlipidemia, hypertension, other Additional medical history: recurrent headaches. anxiety. GERD. CT spine, pelvis, lumbar. 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 CARPAL TUNEL RELEASE - Social History Smoking Status: Current every day smoker Smokeless Tobacco Status: No Alcohol use: none Drug use: none - Family History Mother Family Member Ethnicity: Non- Living Status: Still Living Hx Family Cardiac Disorders: Yes (HTN, HLD) Hx Family Respiratory Disorders: Yes (Asthma) Father Family Member Ethnicity: Non- Living Status: Still Living Hx Family Cardiac Disorders: Yes (HTN, HLD) Hx Family Respiratory Disorders: Yes Hx Family GI Disorders: Yes (cirrhosis) Hx Family Endocrine Disorder: Yes (Cirrhosis) Hx Family Autoimmune Disorders: Yes (Alkylosing Spondylitis) Brother Family Member Ethnicity: Non- Living Status: Still Living Hx Family Endocrine Disorder: Yes (Pancreatitis, Cirrhosis) Sister Family Member Ethnicity: Non- Living Status: Still Living Grandfather Family Member Ethnicity: Non- Living Status: Hx Family Cardiac Disorders: Yes (CT, Stroke) Hx Family Endocrine Disorder: Yes (DM) Internal Medicine - H&P: Meds Esomeprazole Magnesium [Nexium] 40 mg PO DAILY 01/20/18 [History] Estradiol [Estradiol] 2 mg PO DAILY 01/20/18 [History] LORazepam [Lorazepam] 2 mg PO TID PRN 01/20/18 [History] Levomefolate/B6/B12/Algal Oil [Metanx Capsule] 1 cap PO BID 01/20/18 [History] Lisinopril [Zestril] 10 mg PO DAILY 01/20/18 [History] Rosuvastatin [Crestor] 20 mg PO HS 01/20/18 [History] Subcutaneous Insulin Pump [T:Slim] 1 each MC ONCE 01/20/18 [History] Cholecalciferol (Vitamin D3) [Vitamin D3] 800 unit PO DAILY 03/21/18 [History] Orphenadrine Citrate 100 mg PO BID 03/21/18 [History] Quetiapine Fumarate [Seroquel] 50 - 200 mg PO HS PRN 03/21/18 [History] Gabapentin [Neurontin] 100 mg PO TID 03/30/18 [History] Ondansetron [Zofran] 8 mg PO Q8HR 03/30/18 [History] Promethazine [Phenergan] 12.5 mg PO Q6HR 03/30/18 [History] Guaifenesin [Mucinex] 1,200 mg PO BID #20 tbbp.12hr 05/10/18 [Rx] 3 Allergy/AdvReac Type Severity Reaction Status Date / Time acetaminophen [From Tylenol] Allergy Rash Verified 03/30/18 20:59 azithromycin Allergy Hives Verified 03/30/18 20:59 Cortisone Allergy Swelling Verified 03/30/18 20:59 of Lip/Tongue/Throat hydrocodone Allergy Anaphylaxis Verified 03/30/18 20:59 ketorolac [From Toradol] Allergy Swelling Verified 03/30/18 20:59 of Lip/Tongue/Throat latex Allergy Rash Verified 03/30/18 20:59 NSAIDS (Non-Steroidal Allergy Swelling Verified 05/11/18 14:50 Anti-Inflamma of Lip/Tongue/Throat Amoxicillin AdvReac Hives Verified 05/10/18 17:34 metoclopramide [From Reglan] AdvReac Vomiting Verified 03/30/18 20:59 tramadol [From Ultram] AdvReac Vomiting Verified 03/30/18 20:59 All Systems PM: A 10-system review of systems was performed and is negative for pertinent findings except as documented above in the HPI. - Constitutional Constitutional: no chills, no fever(s), no night sweats - EENT Eyes: no change in vision, no discharge, no pain, no photophobia Ears: no ear discharge, no ear pain, no tinnitus Nose, mouth and throat: no dysphagia, no nasal discharge, no neck pain, no sore throat - Cardiovascular Cardiovascular ROS IM: chest pain, no diaphoresis, no dyspnea, no lightheadedness, no palpitations, no syncope - Respiratory Respiratory: dyspnea, no cough, no wheezing, no excessive phlegm production - Gastrointestinal Gastrointestinal: abdominal pain, nausea, vomiting, no diarrhea, no hematemesis , no hematochezia, no melena - Genitourinary Genitourinary: no change in urinary stream, no dysuria, no flank pain, no hematuria - Musculoskeletal Musculoskeletal ROS IM: no numbness, no tingling - Integumentary Integumentary IM: no rash, no unusual bruising - Neurological Neurological ROS: no confusion, no convulsions, no focal weakness, no numbness, no tingling, no tremor(s) - Hematologic/Lymphatic Hematologic/Lymphatic: no easy bruising - Constitutional Vitals: Temp Pulse Resp BP Pulse Ox 98.6 F 95 18 150/75 100 05/11/18 02:33 05/11/18 08:00 05/11/18 08:00 05/11/18 08:00 05/11/18 08:00 Exam: NAD - Head Head exam: Present: atraumatic, normocephalic - Eye Eye exam: Present: PERRL, conjuntiva pink, sclera anicteric Pupils: Present: PERRL - Neck Neck exam general surgery: Present: supple, trachea midline. Absent: lymphadenopathy - Respiratory Respiratory exam: Present: CTAB. Absent: accessory muscle use, rales, rhonchi, wheezes - Cardiovascular Cardiovascular exam: Present: RRR, +S1, +S2. Absent: diastolic murmur, gallop, rubs, systolic murmur - GI/Abdominal GI/Abdominal exam: Present: normal bowel sounds, soft, tenderness, no peritoneal signs. Absent: distended - Extremities Exam Extremities exam: Present: warm, radial pulses palpable and symmetrical. Absent : calf tenderness, cyanotic, pedal edema - Neurological Exam Neurological exam: Present: CN II-XII intact, oriented X3, no focal deficits. Absent: pronater drift, facial droop, speech deficit - Skin Skin exam: Present: dry, intact Internal Med - H&P Results - Labs CBC & Chem 7: 05/11/18 03:56 05/11/18 12:15 Labs: Short CBC 05/11/18 Range/Units 03:56 WBC 5.8 (4.3-11.1) K/mcL Hgb 12.1 (11.5-15.4) g/dL Hct 35.9 (35.3-44.9) % Plt Count 176 (140-400) K/mcL Neutrophils # 3.5 (1.6-8.9) K/mcL BMP 05/11/18 05/11/18 03:56 07:40 Sodium 129 L 132 L Potassium 6.5 H* 4.2 D Chloride 101 104 Carbon Dioxide 21 L 21 L BUN 15 16 Creatinine 0.95 0.97 Glucose 556 H* 560 H* Calcium 8.8 8.8 Cardiac Enzymes 05/11/18 Range/Units 03:56 Troponin I < 0.03 (< 0.04) ng/mL Liver Function 05/11/18 Range/Units 03:56 Total Bilirubin 0.5 (0.3-1.0) mg/dL AST 29 (13-39) Units/L ALT 34 (7-52) Units/L Alkaline Phosphatase 124 H (34-104) Units/L Albumin 3.7 (3.5-5.7) g/dL Urine 05/11/18 Range/Units 04:20 Urine Color Yellow (Yellow) Urine Clarity Clear (Clear) Urine pH 7.0 (5.0-8.0) pH Units Ur Specific [place] 1.012 (1.010-1.025) Urine Protein Negative (Neg-Trace) mg/dL Urine Glucose (UA) >=1000 H (Normal) mg/dL - ABG Interpretation ABG results: 05/11/18 05:58 VBG pH 7.36 VBG pCO2 41 VBG pO2 96 H VBG HCO3 23 - Impressions ITS Impressions Chest CTA 05/11/18 04:33 IMPRESSION: Negative for acute pulmonary embolism. Severe airway inflammation may be seen with asthma, bronchitis or smoking. No consolidative airspace disease. D/ / Enrie Manley / Ernie Manley Interpreting Provider: Ernie Manley - Assessment and plan (1) Uncontrolled diabetes mellitus with hyperglycemia Status: Acute Assessment and plan: Pt comes in with nausea, vomiting and uncontrolled hyperglycemia with positive beta hydroxybutyric acid bu no anion gap elevation. She is on an insulin pump at home and unclear if she has type 1 or type 2 DM. She says type 2 but previous records note type 1. she says she's been feeling sick since she's been on the pump Hold insulin pump. Start on an insulin drip for impending DKA due to uncontrolled hyperglycemia with ketone bodies, but no anion gap elevation. Wean off drip to subcutaneous insulin as tolerated. IV fluids with normal saline. Hold insulin pump Qualifiers: Diabetes mellitus type: type 1 Qualified Code(s): E10.65 - Type 1 diabetes mellitus with hyperglycemia (2) Chest pain Status: Acute Assessment and plan: Likely musculoskeletal. Reproducible on palpation. CT chest negative for any acute findings Flexeril PRN Qualifiers: Chest pain type: unspecified Qualified Code(s): R07.9 - Chest pain, unspecified (3) Hyperkalemia Status: Acute Assessment and plan: Hyperkalemia likely 2/2 to complications of impending DKA. Will put on insulin drip and monitor potassium (4) Hyponatremia Status: Acute Assessment and plan: On IV fluids with normal saline (5) DVT prophylaxis Status: Acute Assessment and plan: Heparin sc - Time Spent With Patient Total time spent is greater than 50% in coordination of care (as documented) at patient's floor/unit and/or counseling patient:
[2018-05-11] MEDS: Gabapentin 100 MG CAPSULE PO SCH ×2 (09:37→15:44)
--- NOTE | 2018-05-11 10:16 | Electrocardiograph Report ---
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
[2018-05-11 11:00] LABS: Estimated Average Glucose 186 mg/dl; Hemoglobin A1C 8.1 %
[2018-05-11] MEDS ORDERED: Dextrose Gel 15 GM/37.5 ML TUBE PO PRN ×2 (12:15)
[2018-05-11] MEDS ORDERED: Insulin LISPRO 300 UNITS/3 ML VIAL SQ SCH ×2 (12:15→16:30)
[2018-05-11] MEDS ORDERED: D5% in Water 1,000 ML IVC PRN ×2 (12:15→16:20)
[2018-05-11 12:52] LABS: BUN/Creatinine Ratio 17 (6-26); Blood Urea Nitrogen 15 mg/dL (6-20); Calcium 9.2 mg/dL (8.6-10.3); Carbon Dioxide 26 mEq/L (23-29); Chloride 109 mEq/L (98-107); Glucose 158 mg/dL (70-105); Osmolality,Calculated 284 (280-300); Potassium 3.8 mEq/L (3.5-5.1); Sodium 135 mEq/L (136-145); eGFR For Non-African Americans > 60 (> 60)
[2018-05-11] MEDS ORDERED: *HR* Morphine 2 MG/ML SYRINGE IVP PRN (14:58)
[2018-05-11 16:39] VITALS: BP 159/85
[2018-05-11] MEDS ORDERED: *HR* Heparin 5,000 UNIT/ML VIAL SQ SCH (18:00)
--- NOTE | 2018-05-11 20:02 | Discharge Summary ---
Date of Encounter: 05/11/18 Time of Encounter: 19:00 - Discharge Diagnosis (1) Uncontrolled diabetes mellitus with hyperglycemia Priority: Primary Status: Acute Assessment and Plan: Pt came in with nausea, vomiting and uncontrolled hyperglycemia with positive beta hydroxybutyric acid but no anion gap elevation. She is on an insulin pump at home and unclear if she has type 1 or type 2 DM. She says type 2 but previous records note type 1. she says she's been feeling sick since she's been on the pump She was started on an insulin drip for impending DKA due to uncontrolled hyperglycemia with ketone bodies, but no anion gap elevation. Weaned off drip to subcutaneous insulin but patient signed out AMA later in the day. Was counseled regarding the risks of signing out AMA including DKA and worsening symptoms Qualifiers: Diabetes mellitus type: type 1 Qualified Code(s): E10.65 - Type 1 diabetes mellitus with hyperglycemia (2) Chest pain Priority: Secondary Status: Acute Qualifiers: Chest pain type: unspecified Qualified Code(s): R07.9 - Chest pain, unspecified (3) Hyperkalemia Priority: Secondary Status: Acute (4) Hyponatremia Priority: Secondary Status: Acute (5) DVT prophylaxis Priority: Secondary Status: Acute Hospital course: Ms. Gaming is a 37 year old female - Time Spent with Patient Total time spent providing and/or coordinating discharge services: - Discharge Medications Home Medications: Esomeprazole Magnesium [Nexium] 40 mg PO DAILY 01/20/18 [History] Estradiol [Estradiol] 2 mg PO DAILY 01/20/18 [History] LORazepam [Lorazepam] 2 mg PO TID PRN 01/20/18 [History] Levomefolate/B6/B12/Algal Oil [Metanx Capsule] 1 cap PO BID 01/20/18 [History] Lisinopril [Zestril] 10 mg PO DAILY 01/20/18 [History] Rosuvastatin [Crestor] 20 mg PO HS 01/20/18 [History] Subcutaneous Insulin Pump [T:Slim] 1 each MC ONCE 01/20/18 [History] Cholecalciferol (Vitamin D3) [Vitamin D3] 800 unit PO DAILY 03/21/18 [History] Orphenadrine Citrate 100 mg PO BID 03/21/18 [History] Quetiapine Fumarate [Seroquel] 50 - 200 mg PO HS PRN 03/21/18 [History] Gabapentin [Neurontin] 100 mg PO TID 03/30/18 [History] Ondansetron [Zofran] 8 mg PO Q8HR 03/30/18 [History] Promethazine [Phenergan] 12.5 mg PO Q6HR 03/30/18 [History] Guaifenesin [Mucinex] 1,200 mg PO BID #20 tbbp.12hr 05/10/18 [Rx] Allergies/Adverse Reactions: 3 Allergy/AdvReac Type Severity Reaction Status Date / Time acetaminophen [From Tylenol] Allergy Rash Verified 03/30/18 20:59 azithromycin Allergy Hives Verified 03/30/18 20:59 Cortisone Allergy Swelling Verified 03/30/18 20:59 of Lip/Tongue/Throat hydrocodone Allergy Anaphylaxis Verified 03/30/18 20:59 ketorolac [From Toradol] Allergy Swelling Verified 03/30/18 20:59 of Lip/Tongue/Throat latex Allergy Rash Verified 03/30/18 20:59 NSAIDS (Non-Steroidal Allergy Swelling Verified 05/11/18 14:50 Anti-Inflamma of Lip/Tongue/Throat Amoxicillin AdvReac Hives Verified 05/10/18 17:34 metoclopramide [From Reglan] AdvReac Vomiting Verified 03/30/18 20:59 tramadol [From Ultram] AdvReac Vomiting Verified 03/30/18 20:59 Date of admission: 05/11/18 10:23 Primary care physician: Jaylan Moran MD - Constitutional Vitals: Temp Pulse Resp BP Pulse Ox 98.1 F 88 16 159/85 97 05/11/18 16:35 05/11/18 16:35 05/11/18 16:35 05/11/18 16:35 05/11/18 16:35 Exam: NAD - Head Head exam: Present: atraumatic, normocephalic - Eye Eye exam: Present: PERRL, conjuntiva pink, sclera anicteric Pupils: Present: PERRL - Neck Neck exam general surgery: Present: supple, trachea midline. Absent: lymphadenopathy - Respiratory Respiratory exam: Present: CTAB. Absent: accessory muscle use, rales, rhonchi, wheezes - Cardiovascular Cardiovascular exam: Present: RRR, +S1, +S2. Absent: diastolic murmur, gallop, rubs, systolic murmur - GI/Abdominal GI/Abdominal exam: Present: normal bowel sounds, soft, no peritoneal signs. Absent: distended, tenderness - Extremities Exam Extremities exam: Present: warm, radial pulses palpable and symmetrical. Absent : calf tenderness, cyanotic, pedal edema - Neurological Exam Neurological exam: Present: CN II-XII intact, oriented X3, no focal deficits. Absent: pronater drift, facial droop, speech deficit - Skin Skin exam: Present: dry, intact - Patient Status Disposition: Left Against Medical Advice Condition: Fair - Discharge Instructions Follow Up With: Jaylan Moran MD [Primary Care Provider] -
[2018-05-11] MEDS ORDERED: Insulin DETEMIR 100 UNIT/ML X5UNITS SQ SCH (21:00)
== END 2018-05-11 17:13 | disposition left against medical advice (07) ==
LOC: EMEROOARM 02:28 → 2SOUTHHOLD 02:28
PROVIDERS: ADMIT Student in an Organized Health Care Education/Training Program; ATTEND Family Medicine

== ENCOUNTER 2018-05-20 00:24 | Inpatient (IN) ==
[2018-05-20] MEDS ORDERED: D5% in Water 1,000 ML IVC PRN (01:24)
[2018-05-20] MEDS ORDERED: Dextrose Gel 15 GM/37.5 ML TUBE PO PRN ×2 (01:24)
[2018-05-20] MEDS ORDERED: Naloxone 0.4 MG/ML INJ IVP PRN (01:24)
[2018-05-20] MEDS ORDERED: *HR* Dextrose 50 % in Water (Syg) 50 ML SYRINGE IVP PRN (01:24)
[2018-05-20] MEDS ORDERED: *HR* OxyCODONE Immed Rel 5 MG TABLET PO PRN (01:24)
[2018-05-20] MEDS ORDERED: Insulin DETEMIR 100 UNIT/ML X5UNITS SQ SCH (01:30)
[2018-05-20] MEDS ORDERED: 0.9 % Sodium Chloride 1,000 ML IVC SCH (01:30)
[2018-05-20] MEDS ORDERED: Ondansetron 4 MG/2 ML VIAL IVP PRN (01:30)
--- NOTE | 2018-05-20 01:45 | Internal Med History&Physical ---
Date of Encounter: 05/20/18 Time of Encounter: 01:43 Internal Medicine - H&P: HPI Chief complaint: Dysuria Admitted From: Intrahospital Transfer ([facility] Gons[facility]) History of present illness: Ms. Gaming is a 37 year old female with a past medical history of diabetes mellitus with an insulin pump, gastroparesis, peripheral neuropathy, and multiple previous UTIs who presented to urgent care today complaining of bilateral flank pain and fever up to 102 F at home prior to arrival. Patient reports dysuria, hematuria, urinary frequency, and urgency has been going on for a few days now. Patient reports the readings on her glucometer have been reading "high" for 2 days now and she has been unable to tolerate any PO intake without nausea and vomiting. She also cough productive of green sputum for 4 days and 15 lbs unintentional weight loss in the past 3 months. Patient denies CP, SOB, diarrhea, constipation, pedal edema, diabetic ulcers, or rash. Past Med Surg Social Fam HX - Past Medical History Medical history: asthma, diabetes Additional medical history: recurrent headaches. anxiety. GERD. CT spine, pelvis, lumbar. 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 CARPAL TUNEL RELEASE - Social History Smoking Status: Current every day smoker Smokeless Tobacco Status: No Alcohol use: none Drug use: none Current living situation: Home, With Family Activity Level: Independent ambulation - Family History Mother Family Member Ethnicity: Non- Living Status: Still Living Hx Family Cardiac Disorders: Yes (HTN, HLD) Hx Family Respiratory Disorders: Yes (Asthma) Father Family Member Ethnicity: Non- Living Status: Still Living Hx Family Cardiac Disorders: Yes (HTN, HLD) Hx Family Respiratory Disorders: Yes Hx Family GI Disorders: Yes (cirrhosis) Hx Family Endocrine Disorder: Yes (Cirrhosis) Hx Family Autoimmune Disorders: Yes (Alkylosing Spondylitis) Brother Family Member Ethnicity: Non- Living Status: Still Living Hx Family Endocrine Disorder: Yes (Pancreatitis, Cirrhosis) Sister Family Member Ethnicity: Non- Living Status: Still Living Grandfather Family Member Ethnicity: Non- Living Status: Hx Family Cardiac Disorders: Yes ([place], Stroke) Hx Family Endocrine Disorder: Yes (DM) Internal Medicine - H&P: Meds Esomeprazole Magnesium [Nexium] 40 mg PO DAILY 01/20/18 [History] Estradiol [Estradiol] 2 mg PO DAILY 01/20/18 [History] LORazepam [Lorazepam] 2 mg PO TID PRN 01/20/18 [History] Levomefolate/B6/B12/Algal Oil [Metanx Capsule] 1 cap PO BID 01/20/18 [History] Lisinopril [Zestril] 10 mg PO DAILY 01/20/18 [History] Rosuvastatin [Crestor] 20 mg PO HS 01/20/18 [History] Subcutaneous Insulin Pump [T:Slim] 1 each MC ONCE 01/20/18 [History] Cholecalciferol (Vitamin D3) [Vitamin D3] 800 unit PO DAILY 03/21/18 [History] Orphenadrine Citrate 100 mg PO BID 03/21/18 [History] Quetiapine Fumarate [Seroquel] 50 - 200 mg PO HS PRN 03/21/18 [History] Gabapentin [Neurontin] 100 mg PO TID 03/30/18 [History] Ondansetron [Zofran] 8 mg PO Q8HR 03/30/18 [History] Promethazine [Phenergan] 12.5 mg PO Q6HR 03/30/18 [History] Insulin ASPART [NovoLOG] 100 unit SQ DAILY 05/19/18 [History] 3 Allergy/AdvReac Type Severity Reaction Status Date / Time acetaminophen [From Tylenol] Allergy Rash Verified 05/19/18 20:06 azithromycin Allergy Hives Verified 05/19/18 20:06 Cortisone Allergy Swelling Verified 05/19/18 20:06 of Lip/Tongue/Throat hydrocodone Allergy Anaphylaxis Verified 05/19/18 20:06 ketorolac [From Toradol] Allergy Swelling Verified 05/19/18 20:06 of Lip/Tongue/Throat latex Allergy Rash Verified 05/19/18 20:06 NSAIDS (Non-Steroidal Allergy Swelling Verified 05/19/18 20:06 Anti-Inflamma of Lip/Tongue/Throat Amoxicillin AdvReac Hives Verified 05/19/18 20:06 metoclopramide [From Reglan] AdvReac Vomiting Verified 05/19/18 20:06 tramadol [From Ultram] AdvReac Vomiting Verified 05/19/18 20:06 All Systems PM: A 10-system review of systems was performed and is negative for pertinent findings except as documented above in the HPI. - Constitutional Constitutional: anorexia, chills, fever(s), weakness, weight loss, no fatigue, no lethargy - EENT Eyes: blurry vision (Chronic), change in vision (Chronic), no loss of peripheral vision, no loss of vision Nose, mouth and throat: no sinus pain, no sore throat - Cardiovascular Cardiovascular ROS IM: no chest pain, no dyspnea, no edema - Respiratory Respiratory: cough, excessive phlegm production, change in phlegm color (green) - Gastrointestinal Gastrointestinal: abdominal pain, cramping, early satiety, nausea, vomiting, no diarrhea, no hematemesis, no hematochezia - Genitourinary Genitourinary: dysuria, flank pain, hematuria, urinary frequency, urinary urgency Menstruation: post hysterectomy - Musculoskeletal Musculoskeletal ROS IM: back pain, no muscle cramps, no numbness, no tingling - Integumentary Integumentary IM: no erythema, no rash - Neurological Neurological ROS: dizziness, paresthesias (Chronic), weakness, no focal weakness , no headache(s) - Psychiatric Psychiatric: no anxiety, no depression - Endocrine Endocrine IM: fatigue, no polydipsia, no polyphagia, no polyuria - Constitutional General appearance: Present: cooperative, A&O X 3, pleasant, answers questions appropriately Exam: Conversant - Head Head exam: Present: atraumatic, normocephalic - Eye Eye exam: Present: EOMI, PERRL, conjuntiva pink, sclera anicteric Pupils: Present: PERRL - ENT ENT exam: Present: mucous membranes moist, normal oropharynx - Neck Neck exam general surgery: Present: supple, trachea midline. Absent: lymphadenopathy - Respiratory Respiratory exam: Present: CTAB. Absent: accessory muscle use, rales, rhonchi, wheezes - Cardiovascular Cardiovascular exam: Present: RRR, +S1, +S2. Absent: diastolic murmur, gallop, rubs, systolic murmur - GI/Abdominal GI/Abdominal exam: Present: normal bowel sounds, soft, no peritoneal signs. Absent: distended, guarding, tenderness - Additional comments: No sahni - Extremities Exam Extremities exam: Present: warm, radial pulses palpable and symmetrical. Absent : calf tenderness, cyanotic, pedal edema - Back Exam Back exam: Present: CVA tenderness (L), CVA tenderness (R), normal inspection - Neurological Exam Neurological exam: Present: alert, CN II-XII intact, oriented X3, no focal deficits. Absent: pronater drift, facial droop, speech deficit - Psychiatric Psychiatric exam: Present: normal affect, normal mood - Skin Skin exam: Present: dry, intact, normal color (Tattoos), warm Internal Med - H&P Results - Labs CBC & Chem 7: 05/20/18 01:58 05/20/18 01:58 - Pulse Oximetry Interpretation Digit-Finger O2 Sat by Pulse Oximetry: 97 (On room air) Actions taken: none - Assessment and plan (1) UTI (urinary tract infection) Current Visit: No Status: Acute Assessment and plan: 05/19/18 Urinalysis at [facility] revealed yellow color, elevated glucose, 15 ketones, moderate blood, negative nitrite, small leukocyte esterase, 15-30 WBCs Urine culture is pending from [facility] sample Previous urine culture results were positive for Escherichia coli, Klebsiella pneumoniae, Streptococcus sanguinis, and Staphylococcus epidermidis Patient reports fever up to 102F and bilateral flank pain Renal ultrasound pending to rule out hydronephrosis/ pyelonephritis Monitor input and output Start Rocephin 1 g IV daily (patient reports tolerating Rocephin the past without adverse reaction) De-escalate antibiotics based on culture results Qualifiers: Urinary tract infection type: site unspecified Hematuria presence: with hematuria Qualified Code(s): N39.0 - Urinary tract infection, site not specified; R31.9 - Hematuria, unspecified (2) Type 1 diabetes mellitus with hyperglycemia, with long-term current use of insulin Current Visit: No Status: Acute Assessment and plan: HGB a1c 8.1 on 05/11/18 Suspend home insulin pump while inpatient Patient reports she is unable to tolerate PO intake but is eating candy (likely contributing to elevated blood glucose levels) Anion gap 10 --> 9 Blood glucose 504, IV insulin given Continue Accuchecks Continue Levemir 40mg subQ qhs Continue high dose SSI (3) Gastroparesis due to DM Current Visit: No Status: Chronic Assessment and plan: Continue anti-emetics, small frequent meals, ADA diet (4) Hypertension Current Visit: Yes Status: Chronic Assessment and plan: Resume home meds Metoprolol 5mg IV q6h prn Qualifiers: Hypertension type: essential hypertension Qualified Code(s): I10 - Essential (primary) hypertension (5) HLD (hyperlipidemia) Current Visit: Yes Status: Chronic Assessment and plan: Resume home statin Qualifiers: Hyperlipidemia type: unspecified Qualified Code(s): E78.5 - Hyperlipidemia , unspecified (6) Hypophosphatemia Current Visit: Yes Status: Acute Assessment and plan: Supplement Phos Continue monitoring (7) Benzodiazepine dependence Current Visit: Yes Status: Chronic Assessment and plan: Patient reports taking Lorazepam 2mg PO TID Verify with pharmacy in AM and resume home dose to prevent benzodiazepine withdrawal (8) Asthma Current Visit: No Status: Chronic Assessment and plan: Continue bronchodilators Qualifiers: Asthma severity: unspecified severity Asthma persistence: intermittent Asthma complication type: uncomplicated Qualified Code(s): J45.20 - Mild intermittent asthma, uncomplicated (9) Tobacco abuse Current Visit: Yes Status: Chronic Assessment and plan: Tobacco cessation discussed (10) DVT prophylaxis Current Visit: Yes Status: Acute Assessment and plan: Heparin subcutaneous TID - Time Spent With Patient Total time spent is greater than 50% in coordination of care (as documented) at patient's floor/unit and/or counseling patient:
[2018-05-20 02:09] LABS: Hematocrit 35.5 % (35.3-44.9); Hemoglobin 12.2 g/dL (11.5-15.4); Mean Corpuscular HGB Conc 34.4 g/dL (31.6-35.5); Mean Corpuscular Hemoglobin 30.7 pg (28.0-33.3); Mean Corpuscular Volume 89.4 fL (83.0-100.0); Mean Platelet Volume 9.7 fL (9.4-12.4); Platelet Count 189 K/mcL (140-400); Red Blood Count 3.97 M/mcL (3.82-4.97); Red Cell Distribution Width 12.8 % (11.5-14.5)
[2018-05-20] MEDS ORDERED: OXYCODONE Oral CONC 10 MG/0.5 ML ORAL.SYG SL PRN ×2 (02:13→02:14)
[2018-05-20] MEDS ORDERED: cefTRIAXone 1,000 MG in Water for inj. (sterile) 20 ML 10 ML IVP SCH (02:30)
[2018-05-20] MEDS ORDERED: Insulin Human Regular 10 UNIT in 0.9 % Sodium Chloride 10 ML IV ONE (02:34)
[2018-05-20 02:35] LABS: BUN/Creatinine Ratio 19 (6-26); Blood Urea Nitrogen 19 mg/dL (6-20); Calcium 8.5 mg/dL (8.6-10.3); Carbon Dioxide 19 mEq/L (23-29); Chloride 104 mEq/L (98-107); Glucose 504 mg/dL (70-105); Magnesium 1.7 mg/dL (1.6-2.6); Osmolality,Calculated 299 (280-300); Potassium 4.1 mEq/L (3.5-5.1); Sodium 132 mEq/L (136-145); eGFR For Non-African Americans > 60 (> 60)
[2018-05-20] MEDS ORDERED: *HR* Metoprolol 5 MG/5 ML VIAL IVP PRN (02:43)
[2018-05-20] MEDS ORDERED: Ipratropium/Albuterol Neb 3 ML IH PRN (02:47)
[2018-05-20] MEDS ORDERED: *HR* Promethazine 25 MG/ML VIAL IVP PRN (04:30)
[2018-05-20] MEDS: *HR* Heparin 5,000 UNIT/ML VIAL SQ SCH ×2 (06:40→13:37)
[2018-05-20] MEDS ORDERED: Nitrofurantoin (BID) 100 MG CAPSULE PO SCH (08:00)
[2018-05-20] MEDS: Insulin LISPRO 300 UNITS/3 ML VIAL SQ SCH ×2 (08:24→11:22)
[2018-05-20] MEDS ORDERED: *HR* LORazepam 1 MG TABLET PO PRN (09:37)
[2018-05-20] MEDS ORDERED: Promethazine 12.5 MG in 0.9 % Sodium Chloride 50 ML IVPB PRN (10:39)
--- NOTE | 2018-05-20 10:48 | Internal Med Progress Note ---
<Christopher Holland - Last Filed: 05/20/18 11:23> Hospitalist Progress Note - Encounter Date of Encounter: 05/20/18 Time of Encounter: 09:00 - Subjective Interval History: Ms. Gaming is a 37 y.o female with a PMHx of insulin dependent diabetes mellitus (last A1c: 7.3, fasting glucose: 116-135), gastroparesis, multiple episodes of UTI, BDZ dependence, peripheral neuropathy who was transferred from the [facility] because b/l flank and suprapubic pain that began yesterday. Patient also endorsed productive cough, chest pain when he was admitted but now it seems to have resolved. Initial workup at the [facility] [place] showed her UA was positive for ketones, with small leukocytosis . Her previous urine culture was positive for E Coli, Klebsiella, S sanguinies and S epidermitis. Patient endorses no systemic signs like fever, SOB< chest pain, d/n. PAtient is chronically nauseas and take phenergan at home for nausea. Her isaacs contro has been controlled on IV Oxycodone. Patient endorses no hx of bladder incontinence e but says sometimes she has difficulty voiding especially when she gets her UTI. Patient is currently not oliguric , [facility] current Is/Os: 05/1400. Her glucose was ~500 on admission currently trending down ~200s. She is currently on High Dose SSI. Her retritoneal US is currentyl pendong. - Exam Vitals: Temp Pulse Resp BP Pulse Ox 97.7 F 65 20 125/75 97 05/20/18 08:12 05/20/18 10:33 05/20/18 10:33 05/20/18 10:33 05/20/18 10:33 Exam: Gen: A&O*3, mild distress, conversant, Heart: RRR, no gallops, murmurs or rubs lungs:CTAB, no ronchi, rales or wheezing GI: b/l flank tenderness, suprapubic tenderness. Extremities: sensory and motor functions intact - Assessment and Plan (1) UTI (urinary tract infection) Current Visit: No Status: Resolved Assessment and Plan: - likely due to her Hx of insulin dependent DM II, patient has had multiple admissions in the past for UTI- her last UTI was a month ago, denies any recent sexual activity, does endorse caffeine drinking. - UA positive for leukocyte esterase - currently on Rocephine 1g, monitor UPO, electrolyes. (2) Insulin dependent diabetes mellitus Current Visit: Yes Status: Acute Assessment and Plan: - she has a Hx of insulin dependent DM. her most recent A.c: 8.1 on 05/11/18 - her glucose was ~500 during admission , currently ~200. - currently holding off on her insulin pump, currently on high dose SSI for glycemic control - Continue accu check, target glucose 130-180 (3) Gastroparesis Current Visit: No Status: Chronic Assessment and Plan: - likely due to her Hx of Diabetes, takes Nexium for gastroparesis - continue home medication (4) Hypertension Current Visit: Yes Status: Chronic Assessment and Plan: - patient has a Hx of HTN -continue home medications. currently normotensive (5) Asthma Current Visit: No Status: Chronic Assessment and Plan: -patient has a Hx of asthma -continue home bronchodilators DVT Prophylaxis: SCPDs - Time Spent with Patient Total time spent is greater than 50% in coordination of care (as documented) at patient's floor/unit and/or counseling patient: Internal Medicine: Result - Labs CBC & Chem 7: 05/20/18 01:58 05/20/18 01:58 Labs: Short CBC 05/20/18 Range/Units 01:58 WBC 5.2 (4.3-11.1) K/mcL Hgb 12.2 (11.5-15.4) g/dL Hct 35.5 (35.3-44.9) % Plt Count 189 (140-400) K/mcL BMP 05/20/18 01:58 Sodium 132 L Potassium 4.1 Chloride 104 Carbon Dioxide 19 L BUN 19 Creatinine 1.00 Glucose 504 H* Calcium 8.5 L Consult Discharge Plan - Plan Referrals: Jaylan Moran MD [Primary Care Provider] - <Sherman Adames - Last Filed: 05/20/18 13:21> Hospitalist Progress Note - Encounter Date of Encounter: 05/20/18 - Exam Vitals: Temp Pulse Resp BP Pulse Ox 97.8 F 73 14 111/72 97 05/20/18 11:53 05/20/18 11:28 05/20/18 11:28 05/20/18 11:28 05/20/18 11:28 - Assessment and Plan (1) Hypertension Current Visit: Yes Status: Chronic (2) HLD (hyperlipidemia) Current Visit: Yes Status: Chronic (3) Gastroparesis due to DM Current Visit: No Status: Chronic (4) DVT prophylaxis Current Visit: Yes Status: Acute (5) Asthma Current Visit: No Status: Chronic (6) Tobacco abuse Current Visit: Yes Status: Chronic (7) Type 1 diabetes mellitus with hyperglycemia, with long-term current use of insulin Current Visit: No Status: Acute (8) UTI (urinary tract infection) Current Visit: No Status: Acute (9) Hypophosphatemia Current Visit: Yes Status: Acute (10) Benzodiazepine dependence Current Visit: Yes Status: Chronic - Time Spent with Patient Total time spent is greater than 50% in coordination of care (as documented) at patient's floor/unit and/or counseling patient: Internal Medicine: Result - Labs CBC & Chem 7: 05/20/18 01:58 05/20/18 01:58 Labs: Short CBC 05/20/18 Range/Units 01:58 WBC 5.2 (4.3-11.1) K/mcL Hgb 12.2 (11.5-15.4) g/dL Hct 35.5 (35.3-44.9) % Plt Count 189 (140-400) K/mcL BMP 05/20/18 01:58 Sodium 132 L Potassium 4.1 Chloride 104 Carbon Dioxide 19 L BUN 19 Creatinine 1.00 Glucose 504 H* Calcium 8.5 L - Impressions Impressions Chest X-Ray 05/20/18 09:54 IMPRESSION: No acute process. D/ / Mikel Paez MD / Mikel Paez MD Interpreting Provider: Mikel Paez MD Retroperitoneum Ultrasound 05/20/18 11:30 IMPRESSION: Normal sonographic appearance of the kidneys. Small amount of debris is suspected within the urinary bladder. D/ / 05/20/2018 12:40:24 Markus Chamorro MD / samantha Interpreting Provider: Markus Chamorro MD - Attending Attestation I examined this patient and my medical decision-making was reviewed with the Resident Physician on 05/20/18. I agree with the documented findings, disposition and treatment plan as described except to the extent set forth below. Ms Gaming was admitted earlier this AM with hyperglycemia and UTI. Her glucose was over 500 but she did not have elevated anion gap. At the present time she is requesting IV pain meds and IV Phenergan. Exam Alert. Mucus membranes dry Heart not tachy No wheeze Some discomfort suprapubic area I/P 1. UTI - continue IV abx. Cultures pending 2. DM - monitoring blood sugars No IV pain meds to be prescribed as she is able to take PO. IV Phenergan IVPB only. <Christopher Holland - Last Filed: 05/20/18 11:23> (1) UTI (urinary tract infection) Qualifiers: Urinary tract infection type: acute cystitis Hematuria presence: with hematuria Qualified Code(s): N30.01 - Acute cystitis with hematuria (4) Hypertension Qualifiers: Hypertension type: essential hypertension Qualified Code(s): I10 - Essential (primary) hypertension (5) Asthma Qualifiers: Asthma severity: unspecified severity Asthma persistence: intermittent Asthma complication type: uncomplicated Qualified Code(s): J45.20 - Mild intermittent asthma, uncomplicated <Sherman Adames - Last Filed: 05/20/18 13:21> (1) Hypertension Qualifiers: Hypertension type: essential hypertension Qualified Code(s): I10 - Essential (primary) hypertension (2) HLD (hyperlipidemia) Qualifiers: Hyperlipidemia type: mixed hyperlipidemia Qualified Code(s): E78.2 - Mixed hyperlipidemia (5) Asthma Qualifiers: Asthma severity: unspecified severity Asthma persistence: intermittent Asthma complication type: uncomplicated Qualified Code(s): J45.20 - Mild intermittent asthma, uncomplicated (8) UTI (urinary tract infection) Qualifiers: Urinary tract infection type: site unspecified Hematuria presence: with hematuria Qualified Code(s): N39.0 - Urinary tract infection, site not specified; R31.9 - Hematuria, unspecified
[2018-05-20 11:30] VITALS: BP 111/72
--- NOTE | 2018-05-20 15:49 | Discharge Summary ---
<Trish Mccloud - Last Filed: 05/20/18 15:49> Date of Encounter: 05/20/18 Time of Encounter: 15:47 - Discharge Diagnosis (1) Hypertension Priority: Secondary Status: Chronic Qualifiers: Hypertension type: essential hypertension Qualified Code(s): I10 - Essential (primary) hypertension (2) HLD (hyperlipidemia) Priority: Secondary Status: Chronic Qualifiers: Hyperlipidemia type: mixed hyperlipidemia Qualified Code(s): E78.2 - Mixed hyperlipidemia (3) Gastroparesis due to DM Priority: Secondary Status: Chronic (4) DVT prophylaxis Priority: Secondary Status: Acute (5) Asthma Priority: Secondary Status: Chronic Qualifiers: Asthma severity: unspecified severity Asthma persistence: intermittent Asthma complication type: uncomplicated Qualified Code(s): J45.20 - Mild intermittent asthma, uncomplicated (6) Tobacco abuse Priority: Secondary Status: Chronic (7) Type 1 diabetes mellitus with hyperglycemia, with long-term current use of insulin Priority: Primary Status: Acute (8) UTI (urinary tract infection) Priority: Secondary Status: Acute Qualifiers: Urinary tract infection type: site unspecified Hematuria presence: with hematuria Qualified Code(s): N39.0 - Urinary tract infection, site not specified (9) Hypophosphatemia Priority: Secondary Status: Acute (10) Benzodiazepine dependence Priority: Secondary Status: Chronic Hospital course: Ms. Gaming is a 37 year old female who presented to [facility] to be treated for hyperglycemia and UTI. She was admitted today and was being treated with antibiotics and the hyperglycemia. She was upset that she did not get IV pain medications as she has an extensive list of allergies. She then said she wanted to leave AMA. Risk of , worsened infection, disability. She stated understanding. The patient walked out of ICU before signing AMA paper or getting antibiotic. - Time Spent with Patient Total time spent providing and/or coordinating discharge services: - Discharge Medications Home Medications: Esomeprazole Magnesium [Nexium] 40 mg PO DAILY 01/20/18 [History] Estradiol [Estradiol] 2 mg PO DAILY 01/20/18 [History] LORazepam [Lorazepam] 2 mg PO TID PRN 01/20/18 [History] Levomefolate/B6/B12/Algal Oil [Metanx Capsule] 1 cap PO BID 01/20/18 [History] Lisinopril [Zestril] 10 mg PO DAILY 01/20/18 [History] Rosuvastatin [Crestor] 20 mg PO HS 01/20/18 [History] Subcutaneous Insulin Pump [T:Slim] 1 each MC ONCE 01/20/18 [History] Cholecalciferol (Vitamin D3) [Vitamin D3] 800 unit PO DAILY 03/21/18 [History] Orphenadrine Citrate 100 mg PO BID 03/21/18 [History] Quetiapine Fumarate [Seroquel] 50 - 200 mg PO HS PRN 03/21/18 [History] Gabapentin [Neurontin] 100 mg PO HS 03/30/18 [History] FLUoxetine HCl [Prozac] 40 mg PO BID 05/20/18 [History] lamoTRIgine [Lamotrigine] 100 mg PO BID 05/20/18 [History] Allergies/Adverse Reactions: 3 Allergy/AdvReac Type Severity Reaction Status Date / Time acetaminophen [From Tylenol] Allergy Rash Verified 05/19/18 20:06 azithromycin Allergy Hives Verified 05/19/18 20:06 Cortisone Allergy Swelling Verified 05/19/18 20:06 of Lip/Tongue/Throat hydrocodone Allergy Anaphylaxis Verified 05/19/18 20:06 ketorolac [From Toradol] Allergy Swelling Verified 05/19/18 20:06 of Lip/Tongue/Throat latex Allergy Rash Verified 05/19/18 20:06 NSAIDS (Non-Steroidal Allergy Swelling Verified 05/19/18 20:06 Anti-Inflamma of Lip/Tongue/Throat Amoxicillin AdvReac Hives Verified 05/19/18 20:06 metoclopramide [From Reglan] AdvReac Vomiting Verified 05/19/18 20:06 tramadol [From Ultram] AdvReac Vomiting Verified 05/19/18 20:06 Date of admission: 05/20/18 04:40 Primary care physician: Jaylan Moran MD Discharging clinician: Sherman Aadmes - Constitutional Vitals: Temp Pulse Resp BP Pulse Ox 97.8 F 73 14 111/72 97 05/20/18 11:53 05/20/18 11:28 05/20/18 11:28 05/20/18 11:28 05/20/18 11:28 General appearance: Present: cooperative, A&O X 3, pleasant, answers questions appropriately Exam: Gen: A&O*3, mild distress, conversant, Heart: RRR, no gallops, murmurs or rubs lungs:CTAB, no ronchi, rales or wheezing GI: b/l flank tenderness, suprapubic tenderness. Extremities: sensory and motor functions intact - Patient Status Disposition: Home, Self-Care Condition: Fair - Discharge Instructions Follow Up With: Jaylan Moran MD [Primary Care Provider] - <Sherman Adames - Last Filed: 05/20/18 19:18> Date of Encounter: 05/20/18 - Discharge Diagnosis (1) Hypertension Status: Chronic Qualifiers: Hypertension type: essential hypertension Qualified Code(s): I10 - Essential (primary) hypertension (2) HLD (hyperlipidemia) Status: Chronic Qualifiers: Hyperlipidemia type: mixed hyperlipidemia Qualified Code(s): E78.2 - Mixed hyperlipidemia (3) Gastroparesis due to DM Status: Chronic (4) DVT prophylaxis Status: Acute (5) Asthma Status: Chronic Qualifiers: Asthma severity: unspecified severity Asthma persistence: intermittent Asthma complication type: uncomplicated Qualified Code(s): J45.20 - Mild intermittent asthma, uncomplicated (6) Tobacco abuse Status: Chronic (7) Type 1 diabetes mellitus with hyperglycemia, with long-term current use of insulin Status: Acute (8) UTI (urinary tract infection) Status: Acute Qualifiers: Urinary tract infection type: acute cystitis Hematuria presence: with hematuria Qualified Code(s): N30.01 - Acute cystitis with hematuria (9) Hypophosphatemia Status: Acute (10) Benzodiazepine dependence Status: Chronic Hospital course: Ms. Gaming is a 37 year old female - Time Spent with Patient Total time spent providing and/or coordinating discharge services: Date of admission: 05/20/18 04:40 Primary care physician: Jaylan Moran MD - Constitutional Vitals: Temp Pulse Resp BP Pulse Ox 97.8 F 73 14 111/72 97 05/20/18 11:53 05/20/18 11:28 05/20/18 11:28 05/20/18 11:28 05/20/18 11:28 - Attending Attestation I examined this patient and my medical decision-making was reviewed with the Resident Physician on 05/20/18. I agree with the documented findings, disposition and treatment plan as described except to the extent set forth below. Ms Gaming was admitted for possible DKA and concern for UTI. She requested IV pain meds and was given oral. She has signed out AMA Exam alert Comfortable Oriented and competent Plan AMA
[2018-05-20] MEDS ORDERED: Insulin LISPRO 300 UNITS/3 ML VIAL SQ SCH ×3 (16:30→21:00)
== END 2018-05-20 15:25 | disposition home or self-care (01) | DRG 463 ==
LOC: ICNU → SUATTDRO 04:40
PROVIDERS: ADMIT Pediatrics; ATTEND Internal Medicine

== ENCOUNTER 2019-01-26 22:44 | Observation (INO) ==
--- NOTE | 2019-01-26 22:56 | Emergency Department Note ---
Disposition Clinical Impression: Hyperglycemia due to type 1 diabetes mellitus, Hyperkalemia Disposition: Admitted As Inpatient Condition: Fair General Adult HPI - General Stated complaint: "high sugar" Time Seen by Provider: 01/26/19 22:45 Source: patient, EMS Mode of arrival: EMS Limitations: no limitations Nursing Notes Reviewed: Yes Vital Signs Reviewed: Yes - History of Present Illness Pt Subjective Complaint: "Blood sugar is high and won't come down, can't pee" Onset (ago): day(s) Location: back Radiation: non-radiation - Related Data Home Medications Medication Instructions Recorded Confirmed Esomeprazole Magnesium [Nexium] 40 mg PO DAILY 01/20/18 09/14/18 Estradiol 2 mg PO DAILY 01/20/18 09/14/18 LORazepam [Lorazepam] 2 mg PO TID PRN 01/20/18 09/14/18 Levomefolate/B6/B12/Algal Oil 1 cap PO BID 01/20/18 09/14/18 [Metanx Capsule] Lisinopril [Zestril] 10 mg PO DAILY 01/20/18 09/14/18 Rosuvastatin [Crestor] 20 mg PO HS 01/20/18 09/14/18 Subcutaneous Insulin Pump [T:Slim] 1 each MC ONCE 01/20/18 09/14/18 Cholecalciferol (Vitamin D3) 800 unit PO DAILY 03/21/18 09/14/18 [Vitamin D3] Orphenadrine Citrate [Orphenadrine 100 mg PO BID 03/21/18 09/14/18 Citrate ER] Quetiapine Fumarate [Seroquel] 100 mg PO HS PRN 03/21/18 09/14/18 FLUoxetine HCl [Prozac] 40 mg PO BID 05/20/18 09/14/18 lamoTRIgine [Lamotrigine] 100 mg PO BID 05/20/18 09/14/18 Gabapentin [Neurontin] 300 mg PO HS 09/14/18 09/14/18 Methocarbamol [Robaxin-750] 750 mg PO Q4H PRN 09/14/18 09/14/18 OXcarbazepine [Oxcarbazepine] 300 mg PO QAM 09/14/18 09/14/18 OXcarbazepine [Oxcarbazepine] 600 mg PO QPM 09/14/18 09/14/18 Previous Rx's Medication Instructions Recorded Ondansetron ODT [Zofran ODT] 4 mg SL Q6HR #12 tab.rapdis 11/07/18 Oseltamivir [Tamiflu] 75 mg PO BID #10 capsule 11/07/18 Allergies Allergy/AdvReac Type Severity Reaction Status Date / Time acetaminophen [From Tylenol] Allergy Rash Verified 11/08/18 11:04 azithromycin Allergy Hives Verified 11/08/18 11:04 Cortisone Allergy Swelling Verified 11/08/18 11:04 of Lip/Tongue/Throat hydrocodone Allergy Anaphylaxis Verified 11/08/18 11:04 ketorolac [From Toradol] Allergy Swelling Verified 11/08/18 11:04 of Lip/Tongue/Throat latex Allergy Rash Verified 11/08/18 11:04 NSAIDS (Non-Steroidal Allergy Swelling Verified 11/08/18 11:04 Anti-Inflamma of Lip/Tongue/Throat Amoxicillin AdvReac Hives Verified 11/08/18 11:04 metoclopramide [From Reglan] AdvReac Vomiting Verified 11/08/18 11:04 tramadol [From Ultram] AdvReac Vomiting Verified 11/08/18 11:04 All systems ED: reviewed and negative except as stated. Review of Systems: As Per HPI Constitutional: Denies: fever, chills, weakness Gastrointestinal: Denies: abdominal pain, nausea, vomiting Past Medical History - Past Medical History Attestation: Yes The following information was validated with the patient. Medical history: Reports: asthma, cancer, diabetes, GERD, hyperlipidemia, hypertension Surgical history: Reports: appendectomy, , cancer surgery, cholecystectomy, hysterectomy, knee replacement, orthopedic, other Psychiatric history: Reports: anxiety, depression, panic disorder [employer] history: Reports: other - Social History Smoking Status: Former smoker Smokeless Tobacco Status: No Alcohol use: Reports: none Drug use: Reports: none Course - Reevaluation(s) Reevaluation #1: Patient now c/o nausea. Had an episode of non-bloddy, non-bilious emesis while sahni was being placed. Antiemetics ordered. Pt states that she cannot take Zofran. Phenergan requestesd. Labs still not resulted - specimen hemolyzed. Tech called to re-draw. Time: 01:12
[2019-01-27 00:21] LABS: ABG Base Excess -2 mEq/L (-2 to 3); ABG HCO3 23 mEq/L (21-27); ABG Oxygen Saturation 96 % (95-98); ABG PCO2 36 mmHg (35-45); ABG PH 7.41 pH Units (7.32-7.45); ABG PO2 77 mmHg (85-104); ABG TCO2 24 mEq/L (20-26)
[2019-01-27 00:25] LABS: Bilirubin,Urine Negative (Negative); Blood,Urine Trace (Negative); Clarity,Urine Clear (Clear); Color,Urine Yellow (Yellow); Glucose,Urine (UA) >=1000 mg/dL (Normal); Ketones,Urine Negative (Negative); Leukocyte Esterase,Urine Negative (Negative); Nitrite,Urine Negative (Negative); Protein,Urine Negative (Neg-Trace); Specific Gravity,Urine 1.027 (1.010-1.025); Urobilinogen,Urine Normal (Normal)
[2019-01-27 00:27] LABS: Bacteria,Urine None Seen per hpf (None-Few); Hyaline Casts,Urine None Seen per lpf (None-Few); Squamous Epithelial Cell,Urine Many per lpf (None-Few); WBC,Urine 0-3 per hpf (0-3)
[2019-01-27 00:42] LABS: Basophils % 0.7 %; Eosinophils # 0.4 K/mcL (0.0-0.6); Eosinophils % 6.4 %; Hematocrit 37.5 % (35.3-44.9); Hemoglobin 12.4 g/dL (11.5-15.4); Immature Granulocytes % 0.2 % (0-4); Lymphocytes # 1.2 K/mcL (0.6-4.6); Lymphocytes % 20.9 %; Mean Corpuscular HGB Conc 33.1 g/dL (31.6-35.5); Mean Corpuscular Hemoglobin 30.9 pg (28.0-33.3); Mean Corpuscular Volume 93.5 fL (83.0-100.0); Mean Platelet Volume 10.7 fL (9.4-12.4); Monocytes # 0.3 K/mcL (0.0-1.3); Monocytes % 4.9 %; Neutrophils # 3.7 K/mcL (1.6-8.9); Platelet Count 158 K/mcL (140-400); Red Blood Count 4.01 M/mcL (3.82-4.97); Red Cell Distribution Width 12.4 % (11.5-14.5); Segmented Neutrophils % 66.9 %
[2019-01-27] MEDS ORDERED: Ondansetron 4 MG/2 ML VIAL IVP ONE (00:53)
[2019-01-27] MEDS ORDERED: *HR* Nalbuphine 10 MG/ML AMPUL IV ONE (00:54)
[2019-01-27] MEDS ORDERED: Promethazine 25 MG in 0.9 % Sodium Chloride 50 ML IVPB ONE (00:59)
[2019-01-27] MEDS ORDERED: *HR* Morphine 2 MG/ML SYRINGE IVP ONE (01:07)
[2019-01-27] MEDS: 0.9 % Sodium Chloride 1,000 ML IVC SCH ×4 (01:13→20:56)
[2019-01-27 01:55] LABS: Albumin 3.9 g/dL (3.5-5.7); Albumin/Globulin Ratio 1.2 (1.1-2.2); Bilirubin,Total 0.6 mg/dL (0.3-1.0); Calcium 9.1 mg/dL (8.6-10.3); Globulin 3.3 g/dL (2.4-3.5); Magnesium 1.7 mg/dL (1.6-2.6); Potassium 6.2 mEq/L (3.5-5.1); Total Protein 7.2 g/dL (6.4-8.9)
[2019-01-27] MEDS ORDERED: 0.9 % Sodium Chloride 1,000 ML IVC ONE ×2 (02:12→05:38)
[2019-01-27] MEDS ORDERED: Insulin Human Regular 10 UNIT in 0.9 % Sodium Chloride 10 ML IV ONE (02:12)
[2019-01-27 05:27] LABS: Hematocrit 32.6 % (35.3-44.9); Hemoglobin 11.2 g/dL (11.5-15.4); Mean Corpuscular HGB Conc 34.4 g/dL (31.6-35.5); Mean Corpuscular Volume 90.3 fL (83.0-100.0); Mean Platelet Volume 10.2 fL (9.4-12.4); Platelet Count 158 K/mcL (140-400); Red Blood Count 3.61 M/mcL (3.82-4.97); Red Cell Distribution Width 12.5 % (11.5-14.5)
[2019-01-27] MEDS ORDERED: *HR* Dextrose 50 % in Water (Syg) 50 ML SYRINGE IVP PRN ×2 (05:32→19:11)
[2019-01-27] MEDS ORDERED: Prochlorperazine 10 MG/2 ML VIAL IVP ONE (05:39)
[2019-01-27] MEDS: Pantoprazole 40 MG VIAL IVP SCH ×3 (07:53→22:20)
[2019-01-27] MEDS: Insulin Human Regular 100 UNIT in 0.9 % Sodium Chloride 100 ML IVC SCH ×2 (09:49→17:25)
--- NOTE | 2019-01-27 12:02 | Internal Med History&Physical ---
Date of Encounter: 01/27/19 Time of Encounter: 12:02 Internal Medicine - H&P: HPI Chief complaint: nausea and vomiting History of present illness: Ms. Gaming is a 38 year old female asthma, cancer, diabetes, GERD, hyperlipidemia, hypertension c/o nausea associated with episode of non-bloddy, non-bilious emesis . The patient was evaluated by the ER staff and her labs that revealed hyperglycemia as well as hyperkalemia. Patient stated that she is on insulin pump . The patient was started on insulin drip and was admitted for further evaluation and management. Upen on arrival to the floor, it was noted that patient's blood sugar is not improving as expected, a hole was found in the IV line and all insulin drip content were on the floor, a great concern about attempting to inject drugs via the IV line was raised. The patient has drug seeking behavior, she asking for Phenergan and frequently asking for IV narcotics. Past Med Surg Social Fam HX - Past Medical History Medical history: asthma, cancer, diabetes, GERD, hyperlipidemia, hypertension Additional medical history: cervical cancer,recurrent headaches. anxiety. GERD. CT spine, pelvis, lumbar. 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 Psychiatric history: anxiety, depression, panic disorder - Past Surgical History Surgical History: appendectomy, , cancer surgery, cholecystectomy, hysterectomy, knee replacement, orthopedic, other Additional surgical history: right shouder rivas. CARPAL TUNEL RELEASE. left knee replacement - Social History Smoking Status: Current every day smoker Smokeless Tobacco Status: No Alcohol use: none Drug use: none - Family History Mother Family Member Ethnicity: Non- Living Status: Still Living Hx Family Cardiac Disorders: Yes (HTN, HLD) Hx Family Respiratory Disorders: Yes (Asthma) Father Family Member Ethnicity: Non- Living Status: Still Living Hx Family Cardiac Disorders: Yes (HTN, HLD) Hx Family Respiratory Disorders: Yes Hx Family GI Disorders: Yes (cirrhosis) Hx Family Endocrine Disorder: Yes (Cirrhosis) Hx Family Autoimmune Disorders: Yes (Alkylosing Spondylitis) Brother Family Member Ethnicity: Non- Living Status: Still Living Hx Family Endocrine Disorder: Yes (Pancreatitis, Cirrhosis) Sister Family Member Ethnicity: Non- Living Status: Still Living Grandfather Family Member Ethnicity: Non- Living Status: Hx Family Cardiac Disorders: Yes ([place], Stroke) Hx Family Endocrine Disorder: Yes (DM I) Internal Medicine - H&P: Meds Esomeprazole Magnesium [Nexium] 40 mg PO DAILY 01/20/18 [History] LORazepam [Lorazepam] 2 mg PO TID PRN 01/20/18 [History] Levomefolate/B6/B12/Algal Oil [Metanx Capsule] 1 cap PO BID 01/20/18 [History] Lisinopril [Zestril] 10 mg PO DAILY 01/20/18 [History] Rosuvastatin [Crestor] 20 mg PO HS 01/20/18 [History] Subcutaneous Insulin Pump [T:Slim] 1 each MC ONCE 01/20/18 [History] Cholecalciferol (Vitamin D3) [Vitamin D3] 800 unit PO DAILY 03/21/18 [History] Quetiapine Fumarate [Seroquel] 100 mg PO HS PRN 03/21/18 [History] Gabapentin [Neurontin] 300 mg PO HS 09/14/18 [History] Allergy/AdvReac Type Severity Reaction Status Date / Time acetaminophen [From Tylenol] Allergy Rash Verified 11/08/18 11:04 azithromycin Allergy Hives Verified 11/08/18 11:04 Cortisone Allergy Swelling Verified 11/08/18 11:04 of Lip/Tongue/Throat hydrocodone Allergy Anaphylaxis Verified 11/08/18 11:04 ketorolac [From Toradol] Allergy Swelling Verified 11/08/18 11:04 of Lip/Tongue/Throat latex Allergy Rash Verified 11/08/18 11:04 NSAIDS (Non-Steroidal Allergy Swelling Verified 11/08/18 11:04 Anti-Inflamma of Lip/Tongue/Throat Amoxicillin AdvReac Hives Verified 11/08/18 11:04 metoclopramide [From Reglan] AdvReac Vomiting Verified 11/08/18 11:04 tramadol [From Ultram] AdvReac Vomiting Verified 11/08/18 11:04 All Systems PM: A 10-system review of systems was performed and is negative for pertinent findings except as documented above in the HPI. - Constitutional Vitals: Temp Pulse Resp BP Pulse Ox 98.2 F 82 16 104/60 96 01/27/19 11:00 01/27/19 11:00 01/27/19 11:00 01/27/19 11:00 01/27/19 11:00 General appearance: Present: A&O X 3 Exam: As below - Head Head exam: Present: atraumatic, normocephalic - Neck Neck exam general surgery: Present: supple, trachea midline. Absent: lymphadenopathy - Respiratory Respiratory exam: Present: CTAB. Absent: accessory muscle use, rales, rhonchi, wheezes - GI/Abdominal GI/Abdominal exam: Present: normal bowel sounds, soft, no peritoneal signs. A bsent: distended, tenderness - Extremities Exam Extremities exam: Present: warm, radial pulses palpable and symmetrical. Absent: calf tenderness, cyanotic, pedal edema Internal Med - H&P Results - Labs CBC & Chem 7: 01/28/19 03:54 01/28/19 03:54 Labs: Short CBC 01/26/19 01/27/19 Range/Units 23:55 05:09 WBC 5.5 5.7 (4.3-11.1) K/mcL Hgb 12.4 11.2 L (11.5-15.4) g/dL Hct 37.5 32.6 L (35.3-44.9) % Plt Count 158 158 (140-400) K/mcL Neutrophils # 3.7 (1.6-8.9) K/mcL BMP 01/27/19 01/27/19 01/27/19 00:52 02:22 09:06 Sodium 122 L Potassium 6.2 H 6.2 H Chloride 91 L Carbon Dioxide 22 L BUN 20 Creatinine 1.23 H Glucose 887 H* 703 H* Calcium 9.1 Liver Function 01/27/19 Range/Units 00:52 Total Bilirubin 0.6 (0.3-1.0) mg/dL AST 23 (13-39) Units/L ALT 29 (7-52) Units/L Alkaline Phosphatase 155 H (34-104) Units/L Albumin 3.9 (3.5-5.7) g/dL Urine 01/27/19 Range/Units 00:14 Urine Color Yellow (Yellow) Urine Clarity Clear (Clear) Urine pH 7.0 (5.0-8.0) pH Units Ur Specific [place] 1.027 H (1.010-1.025) Urine Protein Negative (Neg-Trace) mg/dL Urine Glucose (UA) >=1000 H (Normal) mg/dL - ABG Interpretation ABG results: 01/27/19 00:18 ABG pH 7.41 ABG pCO2 36 ABG pO2 77 L ABG HCO3 23 ABG Total CO2 24 ABG O2 Saturation 96 ABG Base Excess -2 - Impressions ITS Impressions Chest X-Ray 01/26/19 22:53 IMPRESSION: No acute cardiopulmonary process D/ / Oliver Santos / Oliver Santos Interpreting Provider: Oliver Santos Abdomen/Pelvis CT 01/27/19 02:03 IMPRESSION: 1. No acute abnormality identified within the abdomen or pelvis within the limitations of a noncontrast examination. 2. There is a trace amount of fluid within the pelvis, which may be physiologic. 3. A moderate amount of stool is seen throughout the colon, which may represent constipation. D/ / William Mitchell MD / William Mitchell MD Interpreting Provider: William Mitchell MD - Assessment and Plan (1) Hyperosmolality due to uncontrolled type 1 diabetes mellitus Current Visit: Yes Status: Acute Assessment and plan: Upen on arrival to the floor, it was noted that patient's blood sugar is not improving as expected, a hole was found in the IV line and all insulin drip content were on the floor, a great concern about attempting to inject drugs via the IV line was raised. The patient has drug seeking behavior, she asking for Phenergan and frequently asking for IV narcotics. -NPO apart from meds -Insulin IV drip and IV fluid as the protocol -Adjust insulin drip to decrease Glu by 75-100 mg/dL per hr -Accucheck Q 1 hr -BMP q 4-6 hr -EKG in AM -Correct electrolytes -O2 to keep SpO2 >92% -I/O -CBCD, BMP in AM -Target plasma glucose is between 250 and 300 mg/dL (13.9 to 16.7 mmol/L) then switched to adjusted doses of sc insulin. (2) Hyperkalemia Current Visit: Yes Status: Acute Assessment and plan: As per protocol (3) Back pain Current Visit: No Status: Acute Qualifiers: Back pain location: low back pain Chronicity: acute Back pain laterality: midline Sciatica presence: without sciatica Qualified Code(s): M54.5 - Low back pain (4) Acute kidney injury Current Visit: No Status: Acute Assessment and plan: most likely secondary to volume depletion in the setting of hyperosmolality , and osmotic diuresis , we will continue IV hydration as per protocol and continue to monitor renal function. (5) HLD (hyperlipidemia) Current Visit: No Status: Chronic Assessment and plan: we will obtain fasting lipid profile in a.m. Qualifiers: Hyperlipidemia type: mixed hyperlipidemia Qualified Code(s): E78.2 - Mixed hyperlipidemia (6) Nausea & vomiting Current Visit: No Status: Acute Assessment and plan: we will start the patient on antiemetic, she is demanding only Phenergan and she refused Zofran. Qualifiers: Vomiting type: unspecified Vomiting Intractability: intractable Qualified Code(s): R11.2 - Nausea with vomiting, unspecified (7) Hyponatremia Current Visit: No Status: Acute Assessment and plan: Most likely pseudohyponatremia in the setting of hyperglycemia (8) Poorly controlled type 1 diabetes mellitus Current Visit: No Status: Acute (9) Hypomagnesemia Current Visit: No Status: Chronic Assessment and plan: We will replace (10) Hypophosphatemia Current Visit: No Status: Acute Assessment and plan: we will replace. (11) DVT prophylaxis Current Visit: No Status: Acute Assessment and plan: We will place SCDs - Time Spent With Patient Total time spent is greater than 50% in coordination of care (as documented) at patient's floor/unit and/or counseling patient:
[2019-01-27] MEDS: *HR* Promethazine 25 MG/ML VIAL IVP PRN ×3 (12:43→22:51)
[2019-01-27] MEDS ORDERED: traMADol 50 MG TABLET PO PRN (12:51)
[2019-01-27 15:27] LABS: Alanine Aminotransferase 23 Units/L (7-52); Albumin 3.7 g/dL (3.5-5.7); Albumin/Globulin Ratio 1.2 (1.1-2.2); Alkaline Phosphatase 113 Units/L (34-104); Aspartate Amino Transferase 17 Units/L (13-39); BUN/Creatinine Ratio 15 (6-26); Bilirubin,Total 0.5 mg/dL (0.3-1.0); Blood Urea Nitrogen 16 mg/dL (6-20); Calcium 8.8 mg/dL (8.6-10.3); Carbon Dioxide 24 mEq/L (23-29); Chloride 100 mEq/L (98-107); Globulin 3.1 g/dL (2.4-3.5); Glucose 446 mg/dL (70-105); Magnesium 1.5 mg/dL (1.6-2.6); Osmolality,Calculated 290 (280-300); Phosphorous 2.6 mg/dL (2.7-4.5); Potassium 5.5 mEq/L (3.5-5.1); Sodium 130 mEq/L (136-145); Total Protein 6.8 g/dL (6.4-8.9); eGFR For Non-African Americans 59 (> 60)
[2019-01-27 17:43] LABS: Amphetamine Screen,Urine Negative ng/mL (Cutoff=1000); Barbiturate Screen,Urine Negative ng/mL (Cutoff=200); Benzodiazepines Screen,Urine Negative ng/mL (Cutoff=200); Cannabinoid Screen,Urine Positive ng/mL (Cutoff = 50); Cocaine Screen,Urine Negative ng/mL (Cutoff= 300); Opiate Screen,Urine Positive ng/mL (Cutoff=300); Phencyclidine Screen,Urine Negative ng/mL (Cutoff=25)
[2019-01-27] MEDS ORDERED: D5% in 0.45% NACL w KCl 20 MEQ/1,000 ML MLS IVC PRN (19:11)
[2019-01-27] MEDS ORDERED: Insulin Regular, Human 100 UNIT/ML IV PRN (19:11)
[2019-01-27] MEDS ORDERED: D5% in 0.45% NACL 1,000 ML IVC PRN (19:11)
[2019-01-27 19:33] LABS: BUN/Creatinine Ratio 15 (6-26); Blood Urea Nitrogen 16 mg/dL (6-20); Calcium 8.2 mg/dL (8.6-10.3); Carbon Dioxide 19 mEq/L (23-29); Chloride 105 mEq/L (98-107); Glucose 478 mg/dL (70-105); Osmolality,Calculated 298 (280-300); Potassium 4.2 mEq/L (3.5-5.1); Sodium 133 mEq/L (136-145); eGFR For Non-African Americans 58 (> 60)
[2019-01-27 20:30] LABS: Alanine Aminotransferase 20 Units/L (7-52); Albumin 3.4 g/dL (3.5-5.7); Albumin/Globulin Ratio 1.2 (1.1-2.2); Alkaline Phosphatase 106 Units/L (34-104); Aspartate Amino Transferase 15 Units/L (13-39); Bilirubin,Direct 0.1 mg/dL (0.0-0.2); Bilirubin,Indirect 0.4 mg/dL (0.0-1.2); Bilirubin,Total 0.5 mg/dL (0.3-1.0); Globulin 2.9 g/dL (2.4-3.5); Magnesium 1.4 mg/dL (1.6-2.6); Phosphorous 1.8 mg/dL (2.7-4.5); Total Protein 6.3 g/dL (6.4-8.9)
[2019-01-27] MEDS ORDERED: Potassium Phosphate 44 MEQ in 0.9 % Sodium Chloride 250 ML IVPB ONE (21:16)
--- NOTE | 2019-01-27 21:29 | Electrocardiograph Report ---
[address] [address] Test Date: 2019-01-27 Pat Name: Piedad Gaming Department: [id number] Room: 2NE21 Gender: F Allergist: : 1980 Requested By: Piedad Amezcua Order Number: [id number] Reading MD: Kenroy English Measurements Intervals [place] Rate: 79 P: 54 [place]: 155 QRS: 92 QRSD: 92 T: 39 QT: 368 QTc: 422 Interpretive Statements Sinus rhythm Borderline right axis deviation Low voltage, precordial leads Electronically Signed On 01-27-2019 21:27:08 EDT by Kenroy English
[2019-01-27] MEDS ORDERED: *HR* LORazepam 2 MG/ML VIAL IM STA (21:45)
[2019-01-27] MEDS ORDERED: *HR* LORazepam 2 MG/ML VIAL IVP ONE (22:30)
[2019-01-28 00:48] LABS: Alanine Aminotransferase 20 Units/L (7-52); Albumin 3.3 g/dL (3.5-5.7); Albumin/Globulin Ratio 1.2 (1.1-2.2); Alkaline Phosphatase 88 Units/L (34-104); Aspartate Amino Transferase 16 Units/L (13-39); BUN/Creatinine Ratio 15 (6-26); Bilirubin,Total 0.4 mg/dL (0.3-1.0); Blood Urea Nitrogen 13 mg/dL (6-20); Calcium 8.3 mg/dL (8.6-10.3); Carbon Dioxide 21 mEq/L (23-29); Chloride 108 mEq/L (98-107); Globulin 2.7 g/dL (2.4-3.5); Glucose 92 mg/dL (70-105); Magnesium 2.1 mg/dL (1.6-2.6); Osmolality,Calculated 282 (280-300); Phosphorous 3.7 mg/dL (2.7-4.5); Potassium 4.3 mEq/L (3.5-5.1); Sodium 136 mEq/L (136-145); eGFR For Non-African Americans > 60 (> 60)
[2019-01-28] MEDS: 0.9 % Sodium Chloride 1,000 ML IVC SCH ×3 (01:24→10:27)
[2019-01-28] MEDS: *HR* Promethazine 25 MG/ML VIAL IVP PRN ×2 (03:00→09:35)
[2019-01-28 04:07] LABS: Basophils % 0.5 %; Eosinophils # 0.7 K/mcL (0.0-0.6); Eosinophils % 9.8 %; Hematocrit 32.6 % (35.3-44.9); Hemoglobin 11.1 g/dL (11.5-15.4); Immature Granulocytes % 0.3 % (0-4); Lymphocytes # 2.5 K/mcL (0.6-4.6); Lymphocytes % 33.1 %; Mean Corpuscular Hemoglobin 30.7 pg (28.0-33.3); Mean Corpuscular Volume 90.3 fL (83.0-100.0); Mean Platelet Volume 10.4 fL (9.4-12.4); Monocytes # 0.3 K/mcL (0.0-1.3); Monocytes % 3.6 %; Neutrophils # 3.9 K/mcL (1.6-8.9); Platelet Count 151 K/mcL (140-400); Red Blood Count 3.61 M/mcL (3.82-4.97); Red Cell Distribution Width 12.8 % (11.5-14.5); Segmented Neutrophils % 52.7 %
[2019-01-28 04:15] LABS: Prothrombin Time 11.2 Seconds (9.4-12.1)
[2019-01-28 04:18] LABS: Activated Partial Thrombo Time 31.4 Seconds (26.0-36.0)
[2019-01-28 04:29] LABS: Alanine Aminotransferase 19 Units/L (7-52); Albumin 3.1 g/dL (3.5-5.7); Albumin/Globulin Ratio 1.2 (1.1-2.2); Alkaline Phosphatase 83 Units/L (34-104); Aspartate Amino Transferase 16 Units/L (13-39); BUN/Creatinine Ratio 14 (6-26); Bilirubin,Total 0.3 mg/dL (0.3-1.0); Blood Urea Nitrogen 12 mg/dL (6-20); Calcium 7.8 mg/dL (8.6-10.3); Carbon Dioxide 18 mEq/L (23-29); Chloride 109 mEq/L (98-107); Chol/HDL Ratio 3.1 (0-4.9); Cholesterol 105 mg/dL (< 200); Globulin 2.5 g/dL (2.4-3.5); Glucose 169 mg/dL (70-105); HDL Cholesterol 34 mg/dL (40-59); LDL Cholesterol,Calculated 41 mg/dL (0-99); Magnesium 1.6 mg/dL (1.6-2.6); Osmolality,Calculated 290 (280-300); Phosphorous 3.6 mg/dL (2.7-4.5); Sodium 138 mEq/L (136-145); Total Protein 5.6 g/dL (6.4-8.9); Triglycerides 152 mg/dL (< 150); eGFR For Non-African Americans > 60 (> 60)
[2019-01-28] MEDS: Pantoprazole 40 MG VIAL IVP SCH (05:04)
[2019-01-28] MEDS ORDERED: Insulin DETEMIR 100 UNIT/ML X5UNITS SQ ONE (09:20)
[2019-01-28] MEDS ORDERED: *HR* LORazepam 1 MG TABLET PO PRN (09:30)
--- NOTE | 2019-01-28 10:02 | Internal Med Progress Note ---
Hospitalist Progress Note - Encounter Date of Encounter: 01/28/19 Time of Encounter: 10:02 - Subjective Interval History: Patient seen and examined this morning at bedside. No acute overnight events. Complaints of back pain. Denies nausea vomiting or diarrhea. Has mild abdominal pain. Denies fever or chills. - Exam Vitals: Temp Pulse Resp BP Pulse Ox 98.3 F 74 18 141/87 97 01/28/19 04:21 01/28/19 07:30 01/28/19 07:30 01/28/19 07:30 01/28/19 07:30 Exam: Exam General: In no acute distress. Respiratory exam: CTAB. no accessory muscle use, rales, rhonchi, wheezes Cardiovascular exam: RRR, +S1, +S2. no murmur, gallop, rubs. GI/Abdominal exam: mild epigastric tenderness, Non-distended, normal bowel sounds, soft, no peritoneal signs. Extremities exam: no pedal edema, pulses palpable in b/l lower extremities. no calf tenderness Neurological exam: CN II-XII intact, AO X3, no focal deficits. Skin exam: No skin rash - Assessment and Plan (1) Acute kidney injury Current Visit: No Status: Acute (2) HLD (hyperlipidemia) Current Visit: No Status: Chronic (3) Nausea & vomiting Current Visit: No Status: Acute (4) Back pain Current Visit: No Status: Acute (5) Hyponatremia Current Visit: No Status: Acute (6) Hypomagnesemia Current Visit: No Status: Chronic (7) Poorly controlled type 1 diabetes mellitus Current Visit: No Status: Acute (8) DVT prophylaxis Current Visit: No Status: Acute (9) Hypophosphatemia Current Visit: No Status: Acute (10) Hyperkalemia Current Visit: Yes Status: Acute (11) Hyperosmolality due to uncontrolled type 1 diabetes mellitus Current Visit: Yes Status: Acute - Summary of Assessment and Plan Summary of Assessment and Plan: Assessment Acute Hyperosmolality due to controlled type 1 diabetes Hyperkalemia UMM hyponatremia-resolved Hypomagnesemia- resolved marijuana use drug seeking behaviour Chronic Back pain Anxiety HTN HLD Plan - Will switch insulin drip to subcutaneous insulin. Currently does not have insulin pump for reasons not completely clear. Will estimate her insulin need todays. - No AG. Has low bicaronate. electrolytes normalized. Start Levemir 20 units. - c/w home anxiety medication but will not escalate dose or introduce any controlled substance. resume home medications. - Time Spent with Patient Total time spent is greater than 50% in coordination of care (as documented) at patient's floor/unit and/or counseling patient: Internal Medicine: Result - Labs CBC & Chem 7: 01/28/19 03:54 01/28/19 03:54 Labs: Short CBC 01/28/19 Range/Units 03:54 WBC 7.4 (4.3-11.1) K/mcL Hgb 11.1 L (11.5-15.4) g/dL Hct 32.6 L (35.3-44.9) % Plt Count 151 (140-400) K/mcL Neutrophils # 3.9 (1.6-8.9) K/mcL BMP 01/27/19 01/27/19 01/27/19 09:06 14:40 19:00 Sodium 130 L 133 L Potassium 5.5 H 4.2 Chloride 100 105 Carbon Dioxide 24 19 L BUN 16 16 Creatinine 1.05 1.06 Glucose 703 H* 446 H 478 H Calcium 8.8 8.2 L 01/28/19 01/28/19 00:02 03:54 Sodium 136 138 Potassium 4.3 4.0 Chloride 108 H 109 H Carbon Dioxide 21 L 18 L BUN 13 12 Creatinine 0.86 0.83 Glucose 92 169 H Calcium 8.3 L 7.8 L Liver Function 01/27/19 01/27/19 01/28/19 Range/Units 14:40 19:00 00:02 Total Bilirubin 0.5 0.5 0.4 (0.3-1.0) mg/dL Direct Bilirubin 0.1 (0.0-0.2) mg/dL AST 17 15 16 (13-39) Units/L ALT 23 20 20 (7-52) Units/L Alkaline Phosphatase 113 H 106 H 88 (34-104) Units/L Albumin 3.7 3.4 L 3.3 L (3.5-5.7) g/dL 01/28/19 Range/Units 03:54 Total Bilirubin 0.3 (0.3-1.0) mg/dL Direct Bilirubin (0.0-0.2) mg/dL AST 16 (13-39) Units/L ALT 19 (7-52) Units/L Alkaline Phosphatase 83 (34-104) Units/L Albumin 3.1 L (3.5-5.7) g/dL - ABG Interpretation ABG results: ABG ABG pH 7.41 pH Units (7.32-7.45) 01/27/19 00:18 ABG pCO2 36 mmHg (35-45) 01/27/19 00:18 ABG pO2 77 mmHg (85-104) L 01/27/19 00:18 ABG O2 Saturation 96 % (95-98) 01/27/19 00:18 PT/INR, D-dimer PT 11.2 Seconds (9.4-12.1) 01/28/19 03:54 Consult Discharge Plan - Plan Referrals: NONE,PCP [Primary Care Provider] - (2) HLD (hyperlipidemia) Qualifiers: Hyperlipidemia type: mixed hyperlipidemia Qualified Code(s): E78.2 - Mixed hyperlipidemia (3) Nausea & vomiting Qualifiers: Vomiting type: unspecified Vomiting Intractability: intractable Qualified Code(s): R11.2 - Nausea with vomiting, unspecified (4) Back pain Qualifiers: Back pain location: low back pain Chronicity: acute Back pain laterality: midline Sciatica presence: without sciatica Qualified Code(s): M54.5 - Low back pain
[2019-01-28 11:38] VITALS: BP 147/86
[2019-01-28] MEDS ORDERED: *HR* Dextrose 50 % in Water (Syg) 50 ML SYRINGE IVP PRN (13:34)
[2019-01-28] MEDS ORDERED: Dextrose Gel 15 GM/37.5 ML TUBE PO PRN ×2 (13:34)
[2019-01-28] MEDS ORDERED: D5% in Water 1,000 ML IVC PRN (13:34)
--- NOTE | 2019-01-28 14:43 | Discharge Summary ---
- NOTES TO OUTPATIENT PROVIDER Notes to Outpatient Provider: Asked to follow with PCP and to follow-up in endocrinology. I asked to complete ER if blood sugars consistently about 500 Date of Encounter: 01/28/19 Time of Encounter: 14:36 - Discharge Diagnosis (1) Acute kidney injury Priority: Primary Status: Acute (2) HLD (hyperlipidemia) Priority: Secondary Status: Chronic Qualifiers: Hyperlipidemia type: mixed hyperlipidemia Qualified Code(s): E78.2 - Mixed hyperlipidemia (3) Nausea & vomiting Priority: Primary Status: Acute Qualifiers: Vomiting type: unspecified Vomiting Intractability: intractable Qualified Code(s): R11.2 - Nausea with vomiting, unspecified (4) Back pain Priority: Secondary Status: Acute Qualifiers: Back pain location: low back pain Chronicity: acute Back pain laterality: midline Sciatica presence: without sciatica Qualified Code(s): M54.5 - Low back pain (5) Hyponatremia Priority: Primary Status: Acute (6) Hypomagnesemia Priority: Primary Status: Chronic (7) Poorly controlled type 1 diabetes mellitus Priority: Primary Status: Acute (8) DVT prophylaxis Priority: Secondary Status: Acute (9) Hypophosphatemia Priority: Primary Status: Acute (10) Hyperkalemia Priority: Primary Status: Acute (11) Hyperosmolality due to uncontrolled type 1 diabetes mellitus Priority: Primary Status: Acute Hospital course: Ms. Gaming is a 38 year old female with past medical history of diabetes hyperlipidemia hypertension came with nausea vomiting and uncontrolled blood sugar with hypomagnesemia, hypophosphatemia, hyperkalemia and hyponatremia. Patient was started on insulin drip and IV fluids. There was some suspicion of injecting drugs through her IV as her insulin drip was leaking from a whole in her line In ER. Patient was continued on insulin drip which was transitioned to subcutaneous insulin with Levemir. Patient decided to leave A as he was not getting pain medications for her back. Discussed about medication for pain without any to potential however she was not happy with it and decided to leave. [place] doses for insulin has not been due to mind yet. Patient was on insulin pump which she ran out of just before admission. Discussed need to evaluate her insulin needs however she does not want to stay. We will discharge patient with prescription for 10 units twice a day of Levemir along with sliding scale insulin and glucometer. Discharge discussed with: patient, family, nurse - Time Spent with Patient Total time spent providing and/or coordinating discharge services: Time spent: Greater than 30 minutes (40) - Discharge Medications Prescriptions: New Insulin DETEMIR [Levemir] 10 unit SQ BID 30 Days #1 mls Insulin LISPRO [HumaLOG] See Protocol SQ TIDAC #1 vial Continued Levomefolate/B6/B12/Algal Oil [Metanx Capsule] 1 cap PO BID Esomeprazole Magnesium [Nexium] 40 mg PO DAILY Rosuvastatin [Crestor] 20 mg PO HS LORazepam [Lorazepam] 2 mg PO TID PRN PRN Reason: Anxiety Lisinopril [Zestril] 10 mg PO DAILY Quetiapine Fumarate [Seroquel] 100 mg PO HS PRN PRN Reason: Sleep Cholecalciferol (Vitamin D3) [Vitamin D3] 800 unit PO DAILY Gabapentin [Neurontin] 300 mg PO HS Discontinued Subcutaneous Insulin Pump [T:Slim] 1 each ONCE Home Medications: Esomeprazole Magnesium [Nexium] 40 mg PO DAILY 01/20/18 [History] LORazepam [Lorazepam] 2 mg PO TID PRN 01/20/18 [History] Levomefolate/B6/B12/Algal Oil [Metanx Capsule] 1 cap PO BID 01/20/18 [History] Lisinopril [Zestril] 10 mg PO DAILY 01/20/18 [History] Rosuvastatin [Crestor] 20 mg PO HS 01/20/18 [History] Cholecalciferol (Vitamin D3) [Vitamin D3] 800 unit PO DAILY 03/21/18 [History] Quetiapine Fumarate [Seroquel] 100 mg PO HS PRN 03/21/18 [History] Gabapentin [Neurontin] 300 mg PO HS 09/14/18 [History] Insulin DETEMIR [Levemir] 10 unit SQ BID 30 Days #1 mls 01/28/19 [Rx] Insulin LISPRO [HumaLOG] See Protocol SQ TIDAC #1 vial 01/28/19 [Rx] Allergies/Adverse Reactions: Allergy/AdvReac Type Severity Reaction Status Date / Time acetaminophen [From Tylenol] Allergy Rash Verified 11/08/18 11:04 azithromycin Allergy Hives Verified 11/08/18 11:04 Cortisone Allergy Swelling Verified 11/08/18 11:04 of Lip/Tongue/Throat hydrocodone Allergy Anaphylaxis Verified 11/08/18 11:04 ketorolac [From Toradol] Allergy Swelling Verified 11/08/18 11:04 of Lip/Tongue/Throat latex Allergy Rash Verified 11/08/18 11:04 NSAIDS (Non-Steroidal Allergy Swelling Verified 11/08/18 11:04 Anti-Inflamma of Lip/Tongue/Throat Amoxicillin AdvReac Hives Verified 11/08/18 11:04 metoclopramide [From Reglan] AdvReac Vomiting Verified 11/08/18 11:04 tramadol [From Ultram] AdvReac Vomiting Verified 11/08/18 11:04 Date of admission: 01/27/19 05:25 Primary care physician: PCP NONE Consults: 01/27/19 07:52 Consult to Nutrition [CONS] Routine Comment: Consulting Provider: NUTRITION Reason for Dietary Consult: Diet Education Discharging clinician: Jenna Avilez - Constitutional Vitals: Temp Pulse Resp BP Pulse Ox 98 F 79 20 147/86 98 01/28/19 11:00 01/28/19 11:00 01/28/19 11:00 01/28/19 11:00 01/28/19 11:00 Exam: Exam General: In no acute distress. Respiratory exam: CTAB. no accessory muscle use, rales, rhonchi, wheezes Cardiovascular exam: RRR, +S1, +S2. no murmur, gallop, rubs. GI/Abdominal exam: mild epigastric tenderness, Non-distended, normal bowel sounds, soft, no peritoneal signs. Extremities exam: no pedal edema, pulses palpable in b/l lower extremities. no calf tenderness Neurological exam: CN II-XII intact, AO X3, no focal deficits. Skin exam: No skin rash - Patient Status Disposition: Left Against Medical Advice Condition: Fair - Discharge Instructions Instructions: Diabetes Mellitus Type 1 in Adults (DC) Follow Up With: Kusum Perez MD [Partnered Physician] - (This is diabetic doctor. Please call and make appt to get your insulin pump re-established.) NONE,PCP [Primary Care Provider] - () Forms: ED Satisfaction Letter Additional Instructions: It is very important that you make an appt with Endocrinology to Re-establish your insulin pump and insulin regimen. If you do not urinate normally after taking catheter out, please return to ER.
[2019-01-28] MEDS ORDERED: Insulin LISPRO 300 UNITS/3 ML VIAL SQ SCH ×2 (16:30→21:00)
[2019-01-28] MEDS ORDERED: Gabapentin 300 MG CAPSULE PO SCH (21:00)
[2019-01-29] MEDS ORDERED: NON-FORMULARY MEDICATION 1 EACH EACH (Esomeprazole Magnesium [Nexium] 40 MG) PO SCH (09:00)
== END 2019-01-28 15:09 | disposition left against medical advice (07) ==
LOC: EMEROOARM 22:44 → 2NENU 22:44 → SUATTDRO 01-27 05:25 → 2NENU 01-27 05:43
PROVIDERS: ADMIT Pediatrics; ATTEND Internal Medicine

== ENCOUNTER 2019-05-19 17:25 | Observation (INO) ==
--- NOTE | 2019-05-19 17:33 | Emergency Department Note ---
Disposition Clinical Impression: Hyperglycemia Disposition: Admitted As Inpatient Condition: Good Time of Disposition: 10:25 General Adult HPI - General Chief complaint: ED Altered Mental Status Stated complaint: High blood sugar Time Seen by Provider: 05/19/19 17:28 - Related Data Home Medications Medication Instructions Recorded Confirmed Esomeprazole Magnesium [Nexium] 40 mg PO DAILY 01/20/18 01/27/19 LORazepam [Lorazepam] 2 mg PO TID PRN 01/20/18 01/27/19 Levomefolate/B6/B12/Algal Oil 1 cap PO BID 01/20/18 01/27/19 [Metanx Capsule] Lisinopril [Zestril] 10 mg PO DAILY 01/20/18 01/27/19 Rosuvastatin [Crestor] 20 mg PO HS 01/20/18 01/27/19 Cholecalciferol (Vitamin D3) 800 unit PO DAILY 03/21/18 01/27/19 [Vitamin D3] Quetiapine Fumarate [Seroquel] 100 mg PO HS PRN 03/21/18 01/27/19 Gabapentin [Neurontin] 300 mg PO HS 09/14/18 01/27/19 Previous Rx's Medication Instructions Recorded Insulin LISPRO [HumaLOG] See Protocol SQ TIDAC #1 vial 01/28/19 Allergies Allergy/AdvReac Type Severity Reaction Status Date / Time acetaminophen [From Tylenol] Allergy Rash Verified 11/08/18 11:04 azithromycin Allergy Hives Verified 11/08/18 11:04 Cortisone Allergy Swelling Verified 11/08/18 11:04 of Lip/Tongue/Throat hydrocodone Allergy Anaphylaxis Verified 11/08/18 11:04 ketorolac [From Toradol] Allergy Swelling Verified 11/08/18 11:04 of Lip/Tongue/Throat latex Allergy Rash Verified 11/08/18 11:04 NSAIDS (Non-Steroidal Allergy Swelling Verified 11/08/18 11:04 Anti-Inflamma of Lip/Tongue/Throat Amoxicillin AdvReac Hives Verified 11/08/18 11:04 metoclopramide [From Reglan] AdvReac Vomiting Verified 11/08/18 11:04 tramadol [From Ultram] AdvReac Vomiting Verified 11/08/18 11:04 Past Medical History - Past Medical History Medical history: Reports: asthma, cancer, diabetes, GERD, hyperlipidemia, hypertension Surgical history: Reports: appendectomy, , cancer surgery, cholecystectomy, hysterectomy, knee replacement, orthopedic, other Psychiatric history: Reports: anxiety, depression, panic disorder [employer]ST history: Reports: non-contributory, other - Social History Smoking Status: Current every day smoker Smokeless Tobacco Status: No Alcohol use: Reports: none Drug use: Reports: none Course Vital Signs Temperature 98.3 F 05/19/19 17:31 Pulse Rate 91 05/19/19 17:31 Respiratory Rate 16 05/19/19 17:31 Blood Pressure 138/98 05/19/19 17:31 O2 Sat by Pulse Oximetry 97 05/19/19 17:31 Temperature 98.2 F 05/20/19 06:51 Pulse Rate 76 05/20/19 06:51 Respiratory Rate 18 05/20/19 06:51 Blood Pressure 136/91 05/20/19 06:51 O2 Sat by Pulse Oximetry 96 05/20/19 06:51 Oxygen Delivery Oxygen Delivery Room Air Medical Decision Making - Lab Data Result diagrams: 05/20/19 01:36 05/20/19 05:42 Lab Results 05/19/19 05/19/19 05/19/19 Range/Units 17:33 17:34 17:40 WBC 8.8 (4.3-11.1) K/mcL RBC 4.15 (3.82-4.97) M/mcL Hgb 12.7 (11.5-15.4) g/dL Hct 37.5 (35.3-44.9) % MCV 90.4 (83.0-100.0) fL MCH 30.6 (28.0-33.3) pg MCHC 33.9 (31.6-35.5) g/dL RDW 12.1 (11.5-14.5) % Plt Count 248 (140-400) K/mcL MPV 10.1 (9.4-12.4) fL Immature Gran % 0.1 (0-4) % Seg Neutrophils % 74.2 % Lymphocytes % 20.6 % Monocytes % 2.9 % Eosinophils % 1.6 % Basophils % 0.6 % Neutrophils # 6.5 (1.6-8.9) K/mcL Lymphocytes # 1.8 (0.6-4.6) K/mcL Monocytes # 0.3 (0.0-1.3) K/mcL Eosinophils # 0.1 (0.0-0.6) K/mcL Basophils # 0.1 (0.0-0.2) K/mcL VBG pH (7.32-7.42) pH Units VBG pCO2 (41-51) mmHg VBG pO2 (25-50) mmHg VBG HCO3 (21-27) mEq/L Sodium 127 L (136-145) mEq/L Potassium 4.9 (3.5-5.1) mEq/L Chloride 92 L (98-107) mEq/L Carbon Dioxide 25 (23-29) mEq/L BUN 24 H (6-20) mg/dL Creatinine 1.35 H (0.60-1.20) mg/dL Est GFR ( Amer) 53 L (> 60) Est GFR (Non-Af Amer) 44 L (> 60) BUN/Creatinine Ratio 18 (6-26) Glucose 654 H* (70-105) mg/dL POC Glucose > 600 H* (70-99) mg/dL Calculated Osmolality 299 (280-300) Calcium 9.0 (8.6-10.3) mg/dL Phosphorus (2.7-4.5) mg/dL Magnesium 1.6 (1.6-2.6) mg/dL Total Bilirubin 0.6 (0.3-1.0) mg/dL Direct Bilirubin (0.0-0.2) mg/dL Indirect Bilirubin (0.0-1.2) mg/dL AST 22 (13-39) Units/L ALT 27 (7-52) Units/L Alkaline Phosphatase 134 H (34-104) Units/L Serum Total Protein 7.5 (6.4-8.9) g/dL Albumin 3.9 (3.5-5.7) g/dL Globulin 3.6 H (2.4-3.5) g/dL Albumin/Globulin Ratio 1.1 (1.1-2.2) Lipase (11-82) Units/L Beta-Hydroxybutyric Acd (0.02-0.27) mmol/L Urine Color (Yellow) Urine Clarity (Clear) Urine pH (5.0-8.0) pH Units Ur Specific [place] (1.010-1.025) Urine Protein (Neg-Trace) mg/dL Urine Glucose (UA) (Normal) mg/dL Urine Ketones (Negative) mg/dL Urine Blood (Negative) Urine Nitrite (Negative) Urine Bilirubin (Negative) Urine Urobilinogen (Normal) mg/dL Ur Leukocyte Esterase (Negative) Urine Microscopic RBC (0-3) per hpf Urine Microscopic WBC (0-3) per hpf Ur Squamous Epith Cells (None-Few) per lpf Urine Bacteria (None-Few) per hpf Hyaline Casts (None-Few) per lpf Ur Culture Indicated? (NO) Urine Test (Negative) 05/19/19 05/19/19 05/19/19 Range/Units 17:51 18:15 18:35 WBC (4.3-11.1) K/mcL RBC (3.82-4.97) M/mcL Hgb (11.5-15.4) g/dL Hct (35.3-44.9) % MCV (83.0-100.0) fL MCH (28.0-33.3) pg MCHC (31.6-35.5) g/dL RDW (11.5-14.5) % Plt Count (140-400) K/mcL MPV (9.4-12.4) fL Immature Gran % (0-4) % Seg Neutrophils % % Lymphocytes % % Monocytes % % Eosinophils % % Basophils % % Neutrophils # (1.6-8.9) K/mcL Lymphocytes # (0.6-4.6) K/mcL Monocytes # (0.0-1.3) K/mcL Eosinophils # (0.0-0.6) K/mcL Basophils # (0.0-0.2) K/mcL VBG pH 7.39 (7.32-7.42) pH Units VBG pCO2 45 (41-51) mmHg VBG pO2 142 H (25-50) mmHg VBG HCO3 27 (21-27) mEq/L Sodium (136-145) mEq/L Potassium (3.5-5.1) mEq/L Chloride (98-107) mEq/L Carbon Dioxide (23-29) mEq/L BUN (6-20) mg/dL Creatinine (0.60-1.20) mg/dL Est GFR ( Amer) (> 60) Est GFR (Non-Af Amer) (> 60) BUN/Creatinine Ratio (6-26) Glucose (70-105) mg/dL POC Glucose (70-99) mg/dL Calculated Osmolality (280-300) Calcium (8.6-10.3) mg/dL Phosphorus 3.3 (2.7-4.5) mg/dL Magnesium (1.6-2.6) mg/dL Total Bilirubin 0.6 (0.3-1.0) mg/dL Direct Bilirubin 0.1 (0.0-0.2) mg/dL Indirect Bilirubin 0.5 (0.0-1.2) mg/dL AST 23 (13-39) Units/L ALT 27 (7-52) Units/L Alkaline Phosphatase 150 H (34-104) Units/L Serum Total Protein 7.5 (6.4-8.9) g/dL Albumin 3.9 (3.5-5.7) g/dL Globulin 3.6 H (2.4-3.5) g/dL Albumin/Globulin Ratio 1.1 (1.1-2.2) Lipase 4 L (11-82) Units/L Beta-Hydroxybutyric Acd 0.16 (0.02-0.27) mmol/L Urine Color (Yellow) Urine Clarity (Clear) Urine pH (5.0-8.0) pH Units Ur Specific [place] (1.010-1.025) Urine Protein (Neg-Trace) mg/dL Urine Glucose (UA) (Normal) mg/dL Urine Ketones (Negative) mg/dL Urine Blood (Negative) Urine Nitrite (Negative) Urine Bilirubin (Negative) Urine Urobilinogen (Normal) mg/dL Ur Leukocyte Esterase (Negative) Urine Microscopic RBC (0-3) per hpf Urine Microscopic WBC (0-3) per hpf Ur Squamous Epith Cells (None-Few) per lpf Urine Bacteria (None-Few) per hpf Hyaline Casts (None-Few) per lpf Ur Culture Indicated? (NO) Urine Test (Negative) 05/19/19 05/19/19 Range/Units 20:37 20:50 WBC (4.3-11.1) K/mcL RBC (3.82-4.97) M/mcL Hgb (11.5-15.4) g/dL Hct (35.3-44.9) % MCV (83.0-100.0) fL MCH (28.0-33.3) pg MCHC (31.6-35.5) g/dL RDW (11.5-14.5) % Plt Count (140-400) K/mcL MPV (9.4-12.4) fL Immature Gran % (0-4) % Seg Neutrophils % % Lymphocytes % % Monocytes % % Eosinophils % % Basophils % % Neutrophils # (1.6-8.9) K/mcL Lymphocytes # (0.6-4.6) K/mcL Monocytes # (0.0-1.3) K/mcL Eosinophils # (0.0-0.6) K/mcL Basophils # (0.0-0.2) K/mcL VBG pH (7.32-7.42) pH Units VBG pCO2 (41-51) mmHg VBG pO2 (25-50) mmHg VBG HCO3 (21-27) mEq/L Sodium (136-145) mEq/L Potassium (3.5-5.1) mEq/L Chloride (98-107) mEq/L Carbon Dioxide (23-29) mEq/L BUN (6-20) mg/dL Creatinine (0.60-1.20) mg/dL Est GFR ( Amer) (> 60) Est GFR (Non-Af Amer) (> 60) BUN/Creatinine Ratio (6-26) Glucose (70-105) mg/dL POC Glucose (70-99) mg/dL Calculated Osmolality (280-300) Calcium (8.6-10.3) mg/dL Phosphorus (2.7-4.5) mg/dL Magnesium (1.6-2.6) mg/dL Total Bilirubin (0.3-1.0) mg/dL Direct Bilirubin (0.0-0.2) mg/dL Indirect Bilirubin (0.0-1.2) mg/dL AST (13-39) Units/L ALT (7-52) Units/L Alkaline Phosphatase (34-104) Units/L Serum Total Protein (6.4-8.9) g/dL Albumin (3.5-5.7) g/dL Globulin (2.4-3.5) g/dL Albumin/Globulin Ratio (1.1-2.2) Lipase (11-82) Units/L Beta-Hydroxybutyric Acd (0.02-0.27) mmol/L Urine Color Yellow (Yellow) Urine Clarity Clear (Clear) Urine pH 6.5 (5.0-8.0) pH Units Ur Specific [place] 1.026 H (1.010-1.025) Urine Protein Negative (Neg-Trace) mg/dL Urine Glucose (UA) >=1000 H (Normal) mg/dL Urine Ketones Negative (Negative) mg/dL Urine Blood Trace H (Negative) Urine Nitrite Negative (Negative) Urine Bilirubin Negative (Negative) Urine Urobilinogen Normal (Normal) mg/dL Ur Leukocyte Esterase Negative (Negative) Urine Microscopic RBC 3-5 H (0-3) per hpf Urine Microscopic WBC 0-3 (0-3) per hpf Ur Squamous Epith Cells Moderate H (None-Few) per lpf Urine Bacteria Few (None-Few) per hpf Hyaline Casts None Seen (None-Few) per lpf Ur Culture Indicated? YES A (NO) Urine Test Negative (Negative) Critical Care Time Critical Care Time: Yes Total Critical Care Time: 30 Attestation: The high probability of a clinically significant, sudden or life threatening deterioration of the [] system(s) required my full and direct attention, intervention and personal management. The aggregate critical care time was [] minutes. This time is in addition to time spent performing reported procedures but includes the following: [] Data Review and interpretation [] Patient assessment and monitoring of vital signs [] Documentation [] Medication orders and management Attestation Statement - Attestation Attestation: I reviewed the residents documentation and agree with the residents assessment and plan of care. I have personally had face to face time with the patient. (Brief History, Brief Exam, and MDM) I personally supervised and was present for the hopson/critical portions of the following procedures completed by the resident: (add procedures performed here). [id number] time provided Patient presents with hyperglycemia. She recently underwent multiple knee surgeries for knee replacement and subsequent infection. She has known history of type 1 diabetes and has been compliant with her insulin therapy. Patient appears ill on exam I attest to supervising the resident physician's interpretation of the ECG I attest to supervising the resident physician's placement of a right-sided external jugular catheter
[2019-05-19] MEDS ORDERED: 0.9 % Sodium Chloride 1,000 ML IVC ONE ×2 (17:35→19:15)
--- NOTE | 2019-05-19 17:45 | Emergency Department Note ---
Disposition Clinical Impression: Hyperglycemia Disposition: Admitted As Inpatient Condition: Good Referrals: Nasra Ibarra [Primary Care Provider] - Forms: ED Satisfaction Letter Time of Disposition: 21:31 General Adult HPI - General Chief complaint: ED Nausea/Vomiting/Diarrhea Stated complaint: High blood sugar Time Seen by Provider: 05/19/19 17:28 Source: EMS Limitations: no limitations Nursing Notes Reviewed: Yes Vital Signs Reviewed: Yes - History of Present Illness HPI Narrative: 38 yo woman with history of DKA 2/2 T1DM presented to ED by EMS for AMS, blood glucose "too high to measure" and abdominal pain. She had repeated KR surgeries in March that led to infection. Patient has insulin pump but feels she is not responding to insulin. She has not eaten today. POC glucose here >600. Pain Scale: 8 - Related Data Home Medications Medication Instructions Recorded Confirmed Esomeprazole Magnesium [Nexium] 40 mg PO DAILY 01/20/18 01/27/19 LORazepam [Lorazepam] 2 mg PO TID PRN 01/20/18 01/27/19 Levomefolate/B6/B12/Algal Oil 1 cap PO BID 01/20/18 01/27/19 [Metanx Capsule] Lisinopril [Zestril] 10 mg PO DAILY 01/20/18 01/27/19 Rosuvastatin [Crestor] 20 mg PO HS 01/20/18 01/27/19 Cholecalciferol (Vitamin D3) 800 unit PO DAILY 03/21/18 01/27/19 [Vitamin D3] Quetiapine Fumarate [Seroquel] 100 mg PO HS PRN 03/21/18 01/27/19 Gabapentin [Neurontin] 300 mg PO HS 09/14/18 01/27/19 Previous Rx's Medication Instructions Recorded Insulin LISPRO [HumaLOG] See Protocol SQ TIDAC #1 vial 01/28/19 Allergies Allergy/AdvReac Type Severity Reaction Status Date / Time acetaminophen [From Tylenol] Allergy Rash Verified 11/08/18 11:04 azithromycin Allergy Hives Verified 11/08/18 11:04 Cortisone Allergy Swelling Verified 11/08/18 11:04 of Lip/Tongue/Throat hydrocodone Allergy Anaphylaxis Verified 11/08/18 11:04 ketorolac [From Toradol] Allergy Swelling Verified 11/08/18 11:04 of Lip/Tongue/Throat latex Allergy Rash Verified 11/08/18 11:04 NSAIDS (Non-Steroidal Allergy Swelling Verified 11/08/18 11:04 Anti-Inflamma of Lip/Tongue/Throat Amoxicillin AdvReac Hives Verified 11/08/18 11:04 metoclopramide [From Reglan] AdvReac Vomiting Verified 11/08/18 11:04 tramadol [From Ultram] AdvReac Vomiting Verified 11/08/18 11:04 All systems ED: reviewed and negative except as stated. Constitutional: Reports: weakness Gastrointestinal: Reports: abdominal pain Past Medical History - Past Medical History Attestation: Yes The following information was validated with the patient. 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 Pupils equal and reactive. Cardio: Regular rate and rhythm, no murmur, no peripheral edema, good perfusion to all extremities, no cyanosis Resp: Equal breath sounds bilaterally, no wheeze, no cough GI: Abdomen soft, nondistended, diffusely tender to palpation. No ecchymoses, no rash. : No suprapubic tenderness or distention MSK: Normal ROM, no joint swelling or erythema apart from left knee, which is wrapped and with limited ROM Neuro: CNI-XII intact, strength and sensation WNL Psych: Appropriate affect - General Limitations: no limitations General appearance: alert Course Course Narrative: DKA workup initiated. Left EJ line placed for lab draws, fluid boluses and medications. Valle catheter placed after patient unable to urinate. Vital Signs Temperature 98.3 F 05/19/19 17:31 Pulse Rate 91 05/19/19 17:31 Respiratory Rate 16 05/19/19 17:31 Blood Pressure 138/98 05/19/19 17:31 O2 Sat by Pulse Oximetry 97 05/19/19 17:31 Temperature 98.3 F 05/19/19 17:31 Pulse Rate 78 05/19/19 21:23 Respiratory Rate 14 05/19/19 21:23 Blood Pressure 142/84 05/19/19 21:23 O2 Sat by Pulse Oximetry 98 05/19/19 21:23 Oxygen Delivery Oxygen Delivery Room Air Medical Decision Making - MDM Narrative Medical decision making narrative: VS stable. Patient more alert following catheterization, diluadid, phenergan and IVF boluses. Labs consistent with hyperglycemia without DKA. CXR, EKG, UA negative, test negative. IV insulin started in ED at hospitalist's request; patient's insulin pump disconnected. Accepted for admission for glucose control. - Medical Records Medical records reviewed: Yes I reviewed the patient's medical records. - Lab Data Lab results reviewed: Yes I reviewed the patient's lab results. Result diagrams: 05/19/19 17:33 05/19/19 17:34 Lab Results 05/19/19 05/19/19 05/19/19 Range/Units 17:33 17:34 17:40 WBC 8.8 (4.3-11.1) K/mcL RBC 4.15 (3.82-4.97) M/mcL Hgb 12.7 (11.5-15.4) g/dL Hct 37.5 (35.3-44.9) % MCV 90.4 (83.0-100.0) fL MCH 30.6 (28.0-33.3) pg MCHC 33.9 (31.6-35.5) g/dL RDW 12.1 (11.5-14.5) % Plt Count 248 (140-400) K/mcL MPV 10.1 (9.4-12.4) fL Immature Gran % 0.1 (0-4) % Seg Neutrophils % 74.2 % Lymphocytes % 20.6 % Monocytes % 2.9 % Eosinophils % 1.6 % Basophils % 0.6 % Neutrophils # 6.5 (1.6-8.9) K/mcL Lymphocytes # 1.8 (0.6-4.6) K/mcL Monocytes # 0.3 (0.0-1.3) K/mcL Eosinophils # 0.1 (0.0-0.6) K/mcL Basophils # 0.1 (0.0-0.2) K/mcL VBG pH (7.32-7.42) pH Units VBG pCO2 (41-51) mmHg VBG pO2 (25-50) mmHg VBG HCO3 (21-27) mEq/L Sodium 127 L (136-145) mEq/L Potassium 4.9 (3.5-5.1) mEq/L Chloride 92 L (98-107) mEq/L Carbon Dioxide 25 (23-29) mEq/L BUN 24 H (6-20) mg/dL Creatinine 1.35 H (0.60-1.20) mg/dL Est GFR ( Amer) 53 L (> 60) Est GFR (Non-Af Amer) 44 L (> 60) BUN/Creatinine Ratio 18 (6-26) Glucose 654 H* (70-105) mg/dL POC Glucose > 600 H* (70-99) mg/dL Calculated Osmolality 299 (280-300) Calcium 9.0 (8.6-10.3) mg/dL Phosphorus (2.7-4.5) mg/dL Magnesium 1.6 (1.6-2.6) mg/dL Total Bilirubin 0.6 (0.3-1.0) mg/dL Direct Bilirubin (0.0-0.2) mg/dL Indirect Bilirubin (0.0-1.2) mg/dL AST 22 (13-39) Units/L ALT 27 (7-52) Units/L Alkaline Phosphatase 134 H (34-104) Units/L Serum Total Protein 7.5 (6.4-8.9) g/dL Albumin 3.9 (3.5-5.7) g/dL Globulin 3.6 H (2.4-3.5) g/dL Albumin/Globulin Ratio 1.1 (1.1-2.2) Lipase (11-82) Units/L Beta-Hydroxybutyric Acd (0.02-0.27) mmol/L Urine Color (Yellow) Urine Clarity (Clear) Urine pH (5.0-8.0) pH Units Ur Specific [place] (1.010-1.025) Urine Protein (Neg-Trace) mg/dL Urine Glucose (UA) (Normal) mg/dL Urine Ketones (Negative) mg/dL Urine Blood (Negative) Urine Nitrite (Negative) Urine Bilirubin (Negative) Urine Urobilinogen (Normal) mg/dL Ur Leukocyte Esterase (Negative) Urine Microscopic RBC (0-3) per hpf Urine Microscopic WBC (0-3) per hpf Ur Squamous Epith Cells (None-Few) per lpf Urine Bacteria (None-Few) per hpf Hyaline Casts (None-Few) per lpf Ur Culture Indicated? (NO) Urine Test (Negative) 05/19/19 05/19/19 05/19/19 Range/Units 17:51 18:15 18:35 WBC (4.3-11.1) K/mcL RBC (3.82-4.97) M/mcL Hgb (11.5-15.4) g/dL Hct (35.3-44.9) % MCV (83.0-100.0) fL MCH (28.0-33.3) pg MCHC (31.6-35.5) g/dL RDW (11.5-14.5) % Plt Count (140-400) K/mcL MPV (9.4-12.4) fL Immature Gran % (0-4) % Seg Neutrophils % % Lymphocytes % % Monocytes % % Eosinophils % % Basophils % % Neutrophils # (1.6-8.9) K/mcL Lymphocytes # (0.6-4.6) K/mcL Monocytes # (0.0-1.3) K/mcL Eosinophils # (0.0-0.6) K/mcL Basophils # (0.0-0.2) K/mcL VBG pH 7.39 (7.32-7.42) pH Units VBG pCO2 45 (41-51) mmHg VBG pO2 142 H (25-50) mmHg VBG HCO3 27 (21-27) mEq/L Sodium (136-145) mEq/L Potassium (3.5-5.1) mEq/L Chloride (98-107) mEq/L Carbon Dioxide (23-29) mEq/L BUN (6-20) mg/dL Creatinine (0.60-1.20) mg/dL Est GFR ( Amer) (> 60) Est GFR (Non-Af Amer) (> 60) BUN/Creatinine Ratio (6-26) Glucose (70-105) mg/dL POC Glucose (70-99) mg/dL Calculated Osmolality (280-300) Calcium (8.6-10.3) mg/dL Phosphorus 3.3 (2.7-4.5) mg/dL Magnesium (1.6-2.6) mg/dL Total Bilirubin 0.6 (0.3-1.0) mg/dL Direct Bilirubin 0.1 (0.0-0.2) mg/dL Indirect Bilirubin 0.5 (0.0-1.2) mg/dL AST 23 (13-39) Units/L ALT 27 (7-52) Units/L Alkaline Phosphatase 150 H (34-104) Units/L Serum Total Protein 7.5 (6.4-8.9) g/dL Albumin 3.9 (3.5-5.7) g/dL Globulin 3.6 H (2.4-3.5) g/dL Albumin/Globulin Ratio 1.1 (1.1-2.2) Lipase 4 L (11-82) Units/L Beta-Hydroxybutyric Acd 0.16 (0.02-0.27) mmol/L Urine Color (Yellow) Urine Clarity (Clear) Urine pH (5.0-8.0) pH Units Ur Specific [place] (1.010-1.025) Urine Protein (Neg-Trace) mg/dL Urine Glucose (UA) (Normal) mg/dL Urine Ketones (Negative) mg/dL Urine Blood (Negative) Urine Nitrite (Negative) Urine Bilirubin (Negative) Urine Urobilinogen (Normal) mg/dL Ur Leukocyte Esterase (Negative) Urine Microscopic RBC (0-3) per hpf Urine Microscopic WBC (0-3) per hpf Ur Squamous Epith Cells (None-Few) per lpf Urine Bacteria (None-Few) per hpf Hyaline Casts (None-Few) per lpf Ur Culture Indicated? (NO) Urine Test (Negative) 05/19/19 05/19/19 Range/Units 20:37 20:50 WBC (4.3-11.1) K/mcL RBC (3.82-4.97) M/mcL Hgb (11.5-15.4) g/dL Hct (35.3-44.9) % MCV (83.0-100.0) fL MCH (28.0-33.3) pg MCHC (31.6-35.5) g/dL RDW (11.5-14.5) % Plt Count (140-400) K/mcL MPV (9.4-12.4) fL Immature Gran % (0-4) % Seg Neutrophils % % Lymphocytes % % Monocytes % % Eosinophils % % Basophils % % Neutrophils # (1.6-8.9) K/mcL Lymphocytes # (0.6-4.6) K/mcL Monocytes # (0.0-1.3) K/mcL Eosinophils # (0.0-0.6) K/mcL Basophils # (0.0-0.2) K/mcL VBG pH (7.32-7.42) pH Units VBG pCO2 (41-51) mmHg VBG pO2 (25-50) mmHg VBG HCO3 (21-27) mEq/L Sodium (136-145) mEq/L Potassium (3.5-5.1) mEq/L Chloride (98-107) mEq/L Carbon Dioxide (23-29) mEq/L BUN (6-20) mg/dL Creatinine (0.60-1.20) mg/dL Est GFR ( Amer) (> 60) Est GFR (Non-Af Amer) (> 60) BUN/Creatinine Ratio (6-26) Glucose (70-105) mg/dL POC Glucose (70-99) mg/dL Calculated Osmolality (280-300) Calcium (8.6-10.3) mg/dL Phosphorus (2.7-4.5) mg/dL Magnesium (1.6-2.6) mg/dL Total Bilirubin (0.3-1.0) mg/dL Direct Bilirubin (0.0-0.2) mg/dL Indirect Bilirubin (0.0-1.2) mg/dL AST (13-39) Units/L ALT (7-52) Units/L Alkaline Phosphatase (34-104) Units/L Serum Total Protein (6.4-8.9) g/dL Albumin (3.5-5.7) g/dL Globulin (2.4-3.5) g/dL Albumin/Globulin Ratio (1.1-2.2) Lipase (11-82) Units/L Beta-Hydroxybutyric Acd (0.02-0.27) mmol/L Urine Color Yellow (Yellow) Urine Clarity Clear (Clear) Urine pH 6.5 (5.0-8.0) pH Units Ur Specific [place] 1.026 H (1.010-1.025) Urine Protein Negative (Neg-Trace) mg/dL Urine Glucose (UA) >=1000 H (Normal) mg/dL Urine Ketones Negative (Negative) mg/dL Urine Blood Trace H (Negative) Urine Nitrite Negative (Negative) Urine Bilirubin Negative (Negative) Urine Urobilinogen Normal (Normal) mg/dL Ur Leukocyte Esterase Negative (Negative) Urine Microscopic RBC 3-5 H (0-3) per hpf Urine Microscopic WBC 0-3 (0-3) per hpf Ur Squamous Epith Cells Moderate H (None-Few) per lpf Urine Bacteria Few (None-Few) per hpf Hyaline Casts None Seen (None-Few) per lpf Ur Culture Indicated? YES A (NO) Urine Test Negative (Negative) - Radiology Data Radiology results reviewed: Yes I reviewed the patient's radiology results. Chest X-Ray 05/19/19 18:54 IMPRESSION: Stable negative chest. D/ / Nneka Leon MD / Nneka Leon MD Interpreting Provider: Nneka Leon MD - EKG Data EKG #1 EKG attestation: Yes I reviewed and interpreted this EKG. EKG shows normal: sinus rhythm Rate: normal Rhythm: NSR When compared to previous EKG there are: previous EKG unavailable Interpretation: no acute changes, normal EKG
[2019-05-19 18:41] LABS: VBG HCO3 27 mEq/L (21-27); VBG PCO2 45 mmHg (41-51); VBG PH 7.39 pH Units (7.32-7.42); VBG PO2 142 mmHg (25-50)
[2019-05-19] MEDS ORDERED: *HR* Promethazine 25 MG/ML VIAL IVP ONE ×2 (18:41→21:28)
[2019-05-19 18:42] LABS: Basophils # 0.1 K/mcL (0.0-0.2); Basophils % 0.6 %; Eosinophils # 0.1 K/mcL (0.0-0.6); Eosinophils % 1.6 %; Hematocrit 37.5 % (35.3-44.9); Hemoglobin 12.7 g/dL (11.5-15.4); Immature Granulocytes % 0.1 % (0-4); Lymphocytes # 1.8 K/mcL (0.6-4.6); Lymphocytes % 20.6 %; Mean Corpuscular HGB Conc 33.9 g/dL (31.6-35.5); Mean Corpuscular Hemoglobin 30.6 pg (28.0-33.3); Mean Corpuscular Volume 90.4 fL (83.0-100.0); Mean Platelet Volume 10.1 fL (9.4-12.4); Monocytes # 0.3 K/mcL (0.0-1.3); Monocytes % 2.9 %; Neutrophils # 6.5 K/mcL (1.6-8.9); Platelet Count 248 K/mcL (140-400); Red Blood Count 4.15 M/mcL (3.82-4.97); Red Cell Distribution Width 12.1 % (11.5-14.5); Segmented Neutrophils % 74.2 %; White Blood Count 8.8 K/mcL (4.3-11.1)
[2019-05-19 18:53] LABS: Albumin 3.9 g/dL (3.5-5.7); Albumin/Globulin Ratio 1.1 (1.1-2.2); Bilirubin,Direct 0.1 mg/dL (0.0-0.2); Bilirubin,Indirect 0.5 mg/dL (0.0-1.2); Bilirubin,Total 0.6 mg/dL (0.3-1.0); Globulin 3.6 g/dL (2.4-3.5); Phosphorous 3.3 mg/dL (2.7-4.5); Total Protein 7.5 g/dL (6.4-8.9)
[2019-05-19 18:59] LABS: Albumin 3.9 g/dL (3.5-5.7); Albumin/Globulin Ratio 1.1 (1.1-2.2); Bilirubin,Total 0.6 mg/dL (0.3-1.0); Globulin 3.6 g/dL (2.4-3.5); Magnesium 1.6 mg/dL (1.6-2.6); Potassium 4.9 mEq/L (3.5-5.1); Total Protein 7.5 g/dL (6.4-8.9)
[2019-05-19] MEDS ORDERED: *HR* HYDROmorphone (PF) 1 MG/ML SYRINGE IVP ONE ×2 (19:15→20:31)
[2019-05-19] MEDS ORDERED: *HR* Dextrose 50 % in Water (Syg) 50 ML SYRINGE IVP PRN ×2 (20:27→20:36)
[2019-05-19] MEDS ORDERED: Insulin Human Regular 100 UNIT in 0.9 % Sodium Chloride 100 ML IVC SCH ×2 (20:30→20:45)
[2019-05-19 21:05] LABS: Bilirubin,Urine Negative (Negative); Blood,Urine Trace (Negative); Clarity,Urine Clear (Clear); Color,Urine Yellow (Yellow); Glucose,Urine (UA) >=1000 mg/dL (Normal); Ketones,Urine Negative (Negative); Leukocyte Esterase,Urine Negative (Negative); Nitrite,Urine Negative (Negative); PH,Urine 6.5 pH Units (5.0-8.0); Protein,Urine Negative (Neg-Trace); Specific Gravity,Urine 1.026 (1.010-1.025); Urobilinogen,Urine Normal (Normal)
[2019-05-19 21:07] LABS: Bacteria,Urine Few per hpf (None-Few); Hyaline Casts,Urine None Seen per lpf (None-Few); Squamous Epithelial Cell,Urine Moderate per lpf (None-Few); WBC,Urine 0-3 per hpf (0-3)
[2019-05-20] MEDS ORDERED: Naloxone 0.4 MG/ML INJ IVP PRN (00:26)
[2019-05-20] MEDS ORDERED: Ondansetron ODT 4 MG TAB.RAPDIS SL PRN (00:26)
[2019-05-20] MEDS ORDERED: Dextrose Gel 15 GM/37.5 ML TUBE PO PRN ×2 (00:26)
[2019-05-20] MEDS ORDERED: *HR* Dextrose 50 % in Water (Syg) 50 ML SYRINGE IVP PRN ×2 (00:26→01:58)
[2019-05-20] MEDS ORDERED: Insulin Regular, Human 100 UNIT/ML IV PRN ×2 (00:26→01:58)
[2019-05-20] MEDS ORDERED: D5% in Water 1,000 ML IVC PRN ×2 (00:26→04:17)
[2019-05-20] MEDS ORDERED: Insulin LISPRO 300 UNITS/3 ML VIAL SQ SCH ×2 (01:00→06:00)
[2019-05-20 01:56] LABS: Basophils % 0.6 %; Eosinophils # 0.3 K/mcL (0.0-0.6); Eosinophils % 4.6 %; Hematocrit 36.3 % (35.3-44.9); Hemoglobin 12.3 g/dL (11.5-15.4); Immature Granulocytes % 0.2 % (0-4); Lymphocytes # 2.3 K/mcL (0.6-4.6); Lymphocytes % 36.2 %; Mean Corpuscular HGB Conc 33.9 g/dL (31.6-35.5); Mean Corpuscular Hemoglobin 30.6 pg (28.0-33.3); Mean Corpuscular Volume 90.3 fL (83.0-100.0); Mean Platelet Volume 10.2 fL (9.4-12.4); Monocytes # 0.3 K/mcL (0.0-1.3); Monocytes % 4.6 %; Neutrophils # 3.4 K/mcL (1.6-8.9); Platelet Count 214 K/mcL (140-400); Red Blood Count 4.02 M/mcL (3.82-4.97); Red Cell Distribution Width 12.2 % (11.5-14.5); Segmented Neutrophils % 53.8 %; White Blood Count 6.3 K/mcL (4.3-11.1)
[2019-05-20] MEDS ORDERED: D5% in 0.45% NACL 1,000 ML IVC PRN (01:58)
[2019-05-20] MEDS ORDERED: D5% in 0.45% NACL w KCl 20 MEQ/1,000 ML MLS IVC PRN (01:58)
[2019-05-20] MEDS ORDERED: 0.9 % Sodium Chloride w KCl 20 MEQ/1,000 ML MLS IVC SCH (02:00)
[2019-05-20] MEDS ORDERED: 0.9 % Sodium Chloride 1,000 ML IVC SCH (02:00)
[2019-05-20 02:05] LABS: Prothrombin Time 11.5 Seconds (9.4-12.1)
[2019-05-20] MEDS ORDERED: *HR* OxyCODONE Immed Rel 5 MG TABLET PO PRN (02:05)
--- NOTE | 2019-05-20 02:11 | Internal Med History&Physical ---
Date of Encounter: 05/20/19 Time of Encounter: 02:06 Internal Medicine - H&P: HPI Chief complaint: nausea, and vomiting. Admitted From: Home Plans for Post Hospital Care: Home History of present illness: Ms. Gaming is a 38 year old female With past medical history of type 1 diabetes diagnosed H 11 on [employer] pump, hyperli pidemia, hypertension, GERD, asthma and hypertension presented for nausea and vomiting. Patient recently was hospitalized for left total knee replacement and was discharged and of March. Patient since then has had outpatient physical therapy. Patient reported the past 3 days has been having hyperglycemia in addition to left knee worsening pain, edema and warmth. Patient had no change in her diet and has seen endocrinology with her next appointment on Wednesday. Patient then developed yesterday night nausea and vomiting and today was not able to tolerate anything oral thus came to the ED. Nausea and vomiting with no alleviating or exacerbating factor, associated with chills, otherwise no diarrhea, or dysuria. CODE STATUS was discussed and the patient is a full code. The patient past medical, surgical, family and social history. [id number] encounter occurred at 12:30 AM. Past Med Surg Social Fam HX - Past Medical History Medical history: asthma, cancer, diabetes, GERD, hyperlipidemia, hypertension Additional medical history: cervical cancer,recurrent headaches. anxiety. GERD. CT spine, pelvis, lumbar. 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 Psychiatric history: anxiety, depression, panic disorder - Past Surgical History Surgical History: appendectomy, , cancer surgery, cholecystectomy, hysterectomy, knee replacement, orthopedic, other Additional surgical history: right shouder rivas. CARPAL TUNEL RELEASE. left knee replacement x2 - Social History Smoking Status: Current every day smoker Smokeless Tobacco Status: No Alcohol use: none Drug use: none - Family History Mother Family Member Ethnicity: Non- Living Status: Still Living Hx Family Cardiac Disorders: Yes (HTN, HLD) Hx Family Respiratory Disorders: Yes (Asthma) Father Family Member Ethnicity: Non- Living Status: Still Living Hx Family Cardiac Disorders: Yes (HTN, HLD) Hx Family Respiratory Disorders: Yes Hx Family GI Disorders: Yes (cirrhosis) Hx Family Endocrine Disorder: Yes (Cirrhosis) Hx Family Autoimmune Disorders: Yes (Alkylosing Spondylitis) Brother Family Member Ethnicity: Non- Living Status: Still Living Hx Family Endocrine Disorder: Yes (Pancreatitis, Cirrhosis) Sister Family Member Ethnicity: Non- Living Status: Still Living Grandfather Family Member Ethnicity: Non- Living Status: Hx Family Cardiac Disorders: Yes (MD, Stroke) Hx Family Endocrine Disorder: Yes (DM I) Internal Medicine - H&P: Meds Esomeprazole Magnesium [Nexium] 40 mg PO DAILY 01/20/18 [History] LORazepam [Lorazepam] 2 mg PO TID PRN 01/20/18 [History] Levomefolate/B6/B12/Algal Oil [Metanx Capsule] 1 cap PO BID 01/20/18 [History] Lisinopril [Zestril] 10 mg PO DAILY 01/20/18 [History] Rosuvastatin [Crestor] 20 mg PO HS 01/20/18 [History] Cholecalciferol (Vitamin D3) [Vitamin D3] 800 unit PO DAILY 03/21/18 [History] Quetiapine Fumarate [Seroquel] 100 mg PO HS PRN 03/21/18 [History] Gabapentin [Neurontin] 300 mg PO HS 09/14/18 [History] Insulin LISPRO [HumaLOG] See Protocol SQ TIDAC #1 vial 01/28/19 [Rx] Allergy/AdvReac Type Severity Reaction Status Date / Time acetaminophen [From Tylenol] Allergy Rash Verified 11/08/18 11:04 azithromycin Allergy Hives Verified 11/08/18 11:04 Cortisone Allergy Swelling Verified 11/08/18 11:04 of Lip/Tongue/Throat hydrocodone Allergy Anaphylaxis Verified 11/08/18 11:04 ketorolac [From Toradol] Allergy Swelling Verified 11/08/18 11:04 of Lip/Tongue/Throat latex Allergy Rash Verified 11/08/18 11:04 NSAIDS (Non-Steroidal Allergy Swelling Verified 11/08/18 11:04 Anti-Inflamma of Lip/Tongue/Throat Amoxicillin AdvReac Hives Verified 11/08/18 11:04 metoclopramide [From Reglan] AdvReac Vomiting Verified 11/08/18 11:04 tramadol [From Ultram] AdvReac Vomiting Verified 11/08/18 11:04 All Systems PM: A 10-system review of systems was performed and is negative for pertinent findings except as documented above in the HPI. Review of systems: General: No unintentional weightloss, + fever Head: No headahce, No injury. Ears: No discharge, No earache Eyes: No drainage, No eye pain Mouth and Throat: No new ulcers, No pain Nose and Sinus: No new congestion, No pain, Respiratory: No cough, No sputum production, No dyspnea Cardiovascular: No chest pain, No palpitations. Gastrointestinal: + nausea, + vomiting. + abdominal pain. Genital Tract: No discharge, No pain Urinary Tract: No dysuria, No discharge. MSK: + new/worsening joint pain, No new/worsening muscle ache. Endocrine: No cold intolerance, No polyuria Psychological: No suicidal, No homocidal ideation. - Constitutional Vitals: Temp Pulse Resp BP Pulse Ox 97.9 F 91 18 153/84 99 05/19/19 22:41 05/19/19 22:41 05/19/19 22:41 05/19/19 22:41 05/19/19 22:41 Exam: General Appearance: Appearing as age, well-nourished in mild acute distress. Head: Atraumatic normocephalic Skin: Normal texture, normal turgor, warm, dry. Eyes: Conjunctivae not pale with no erythema, drainage, or ulcers. Anicteric. Neck: No Lymphadenopathy in the anterior/posterior cervical chain. No thyromegaly, masses or ulcers. Trachea midline. Heart: RRR, no murmurs. Capillary refill 3 seconds Lungs: No accessory muscle usage, lungs clear to auscultation bilaterally, no wheezes or crackles. Extremities: No pitting edema, No clubbing, No cyanosis. left knee swelling. Abdomen: Non-distended, normoactive bowel sounds. Epigastri and right upper quadrant c tenderness with no guarding, negative McBurney sign. , Neuro: AOx3 with no new sensory loss or focal deficits. MSK: Strength 5/5 Upper extremity equal bilaterally. Left knee dressing, nonerythematous, edematous and tender with active and passive range of motion Internal Med - H&P Results - Labs CBC & Chem 7: 05/20/19 01:36 05/20/19 05:42 Labs: Short CBC 05/19/19 05/20/19 Range/Units 17:33 01:36 WBC 8.8 6.3 (4.3-11.1) K/mcL Hgb 12.7 12.3 (11.5-15.4) g/dL Hct 37.5 36.3 (35.3-44.9) % Plt Count 248 214 (140-400) K/mcL Neutrophils # 6.5 3.4 (1.6-8.9) K/mcL BMP 05/19/19 17:34 Sodium 127 L Potassium 4.9 Chloride 92 L Carbon Dioxide 25 BUN 24 H Creatinine 1.35 H Glucose 654 H* Calcium 9.0 Liver Function 05/19/19 05/19/19 Range/Units 17:34 17:51 Total Bilirubin 0.6 0.6 (0.3-1.0) mg/dL Direct Bilirubin 0.1 (0.0-0.2) mg/dL AST 22 23 (13-39) Units/L ALT 27 27 (7-52) Units/L Alkaline Phosphatase 134 H 150 H (34-104) Units/L Albumin 3.9 3.9 (3.5-5.7) g/dL Urine 05/19/19 Range/Units 20:37 Urine Color Yellow (Yellow) Urine Clarity Clear (Clear) Urine pH 6.5 (5.0-8.0) pH Units Ur Specific [place] 1.026 H (1.010-1.025) Urine Protein Negative (Neg-Trace) mg/dL Urine Glucose (UA) >=1000 H (Normal) mg/dL - ABG Interpretation ABG results: 05/19/19 18:35 VBG pH 7.39 VBG pCO2 45 VBG pO2 142 H VBG HCO3 27 - Impressions ITS Impressions Chest X-Ray 05/19/19 18:54 IMPRESSION: Stable negative chest. D/ / Nneka Leon MD / Nneka Leon MD Interpreting Provider: Nneka Leon MD - Summary of Assessment and Plan Summary of Assessment and Plan: 1.Intractable nausea and vomiting secondary to Early onset Diabetic ketoacidosis: Acutely worsened secondary to worsening knee pain(suspected septic) and dehydration. test negative,continue DKA protocol. Pump to be investigated thus pharmacy consultation 2. Acute left knee pain: Patient recently had total knee surgery and is acutely worsened in tenderness, warmth and edema. History in addition to active and passive range of motion tenderness with edema. IV vancomycin and cefepime Orthopedic consultation 3.Acute kidney failure, Secondary to Severe Dehydration and DKA. Continue to Recheck with IVF response. 4.Epigastric and right upper quadrant pain: lactic acid normal Patient does have history of gastroparesis, and gerd. PPI and check response.Right upper quadrant ultrasound to check for gallbladder etiology. 5.ALP elevated: US abdomen pending, GGT in the AM. Reflexes: Heparin Disposition: Likely <2 day stay. - Time Spent With Patient Total time spent is greater than 40 minutes 50% in coordination of care (as documented) at patient's floor/unit and/or counseling patient: Greater than 35 minutes
[2019-05-20 02:14] LABS: Albumin 3.6 g/dL (3.5-5.7); Albumin/Globulin Ratio 1.1 (1.1-2.2); Bilirubin,Total 0.6 mg/dL (0.3-1.0); Calcium 8.5 mg/dL (8.6-10.3); Chol/HDL Ratio 3.5 (0-4.9); Globulin 3.4 g/dL (2.4-3.5); Magnesium 1.6 mg/dL (1.6-2.6); Phosphorous 3.2 mg/dL (2.7-4.5); Potassium 3.7 mEq/L (3.5-5.1)
[2019-05-20] MEDS: Cefepime HCl 2,000 MG in Water for inj. (sterile) 20 ML IVP SCH ×2 (02:32→15:35)
[2019-05-20] MEDS: 0.9 % Sodium Chloride 1,000 ML IVC SCH ×3 (02:32→06:05)
[2019-05-20] MEDS: *HR* Promethazine 25 MG/ML VIAL IVP PRN ×3 (02:32→17:44)
[2019-05-20] MEDS ORDERED: Morphine Sulfate 2 MG/ML SYRINGE IVP PRN (03:28)
[2019-05-20] MEDS ORDERED: Insulin DETEMIR 100 UNIT/ML X5UNITS SQ ONE (04:17)
[2019-05-20] MEDS: Insulin LISPRO 300 UNITS/3 ML VIAL SQ SCH ×4 (06:03→23:05)
[2019-05-20 06:27] LABS: BUN/Creatinine Ratio 19 (6-26); Blood Urea Nitrogen 20 mg/dL (6-20); Calcium 7.8 mg/dL (8.6-10.3); Carbon Dioxide 24 mEq/L (23-29); Chloride 106 mEq/L (98-107); Glucose 267 mg/dL (70-105); Osmolality,Calculated 296 (280-300); Potassium 3.5 mEq/L (3.5-5.1); Sodium 137 mEq/L (136-145); eGFR For African Americans > 60 (> 60); eGFR For Non-African Americans 58 (> 60)
[2019-05-20 06:27] LABS: Gamma Glutamyl Transpeptidase 30 Units/L (1-24)
[2019-05-20] MEDS ORDERED: Aminoglycoside Consult 1 EACH MC ONE (10:14)
[2019-05-20 11:13] LABS: Estimated Average Glucose 214 mg/dl
[2019-05-20 11:15] LABS: C-Reactive Protein 16 mg/L (Less than 10)
[2019-05-20] MEDS ORDERED: Isovue-370 500 ML BOTTLE IVP ONE (12:20)
--- NOTE | 2019-05-20 12:26 | Event Note ---
Date of Encounter: 05/20/19 Time of Encounter: 12:21 S still having significant L knee pain O vitals currently wnl knee is swollen and very tender to touch but no erythema or discharge or dehiscence of well approximated incision site extension of pain to proximal knee / distal thigh several cm away from incision A Hyperglycemia without ketosis or acidosis Knee pain and swelling 1 month after L TKA with reported erythema overnight concerning for infection UMM improved w fluids P continue basal/bolus insulin for now, consider transition back to pump when sugars stable continue empiric broad spectrum abx for now check CT knee w contrast
[2019-05-20 13:49] LABS: BUN/Creatinine Ratio 18 (6-26); Blood Urea Nitrogen 16 mg/dL (6-20); Calcium 8.5 mg/dL (8.6-10.3); Carbon Dioxide 25 mEq/L (23-29); Chloride 102 mEq/L (98-107); Glucose 150 mg/dL (70-105); Osmolality,Calculated 290 (280-300); Potassium 3.7 mEq/L (3.5-5.1); Sodium 138 mEq/L (136-145); Troponin I < 0.03 ng/mL (< 0.04); eGFR For African Americans > 60 (> 60); eGFR For Non-African Americans > 60 (> 60)
--- NOTE | 2019-05-20 15:11 | Electrocardiograph Report ---
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
--- NOTE | 2019-05-20 15:26 | Electrocardiograph Report ---
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
[2019-05-20] MEDS: Ringers Solution, Lactated 1,000 ML IVC SCH (15:35)
[2019-05-20] MEDS: *HR* OxyCODONE Immed Rel 15 MG TABLET PO PRN (23:03)
[2019-05-21] MEDS: *HR* Promethazine 25 MG/ML VIAL IVP PRN (00:08)
[2019-05-21 01:23] LABS: Hemoglobin 11.6 g/dL (11.5-15.4); Mean Corpuscular HGB Conc 34.1 g/dL (31.6-35.5); Mean Corpuscular Hemoglobin 31.3 pg (28.0-33.3); Mean Corpuscular Volume 91.6 fL (83.0-100.0); Mean Platelet Volume 10.2 fL (9.4-12.4); Platelet Count 198 K/mcL (140-400); Red Blood Count 3.71 M/mcL (3.82-4.97); Red Cell Distribution Width 12.5 % (11.5-14.5); White Blood Count 5.5 K/mcL (4.3-11.1)
[2019-05-21 01:45] LABS: Alanine Aminotransferase 20 Units/L (7-52); Albumin 3.2 g/dL (3.5-5.7); Alkaline Phosphatase 91 Units/L (34-104); Aspartate Amino Transferase 21 Units/L (13-39); BUN/Creatinine Ratio 12 (6-26); Bilirubin,Direct 0.1 mg/dL (0.0-0.2); Bilirubin,Indirect 0.2 mg/dL (0.0-1.2); Bilirubin,Total 0.3 mg/dL (0.3-1.0); Blood Urea Nitrogen 14 mg/dL (6-20); Calcium 8.2 mg/dL (8.6-10.3); Carbon Dioxide 24 mEq/L (23-29); Chloride 103 mEq/L (98-107); Globulin 3.1 g/dL (2.4-3.5); Glucose 325 mg/dL (70-105); Magnesium 1.4 mg/dL (1.6-2.6); Osmolality,Calculated 295 (280-300); Potassium 3.3 mEq/L (3.5-5.1); Sodium 136 mEq/L (136-145); Total Protein 6.3 g/dL (6.4-8.9); eGFR For African Americans > 60 (> 60); eGFR For Non-African Americans 53 (> 60)
[2019-05-21] MEDS: Cefepime HCl 2,000 MG in Water for inj. (sterile) 20 ML IVP SCH (03:01)
[2019-05-21] MEDS: Ringers Solution, Lactated 1,000 ML IVC SCH (03:04)
[2019-05-21 07:51] VITALS: BP 148/82
[2019-05-21] MEDS: *HR* OxyCODONE Immed Rel 15 MG TABLET PO PRN (08:12)
[2019-05-21] MEDS: Insulin LISPRO 300 UNITS/3 ML VIAL SQ SCH (08:13)
[2019-05-21] MEDS ORDERED: FLUoxetine 20 MG CAPSULE PO SCH (09:00)
--- NOTE | 2019-05-21 09:49 | Discharge Summary ---
- NOTES TO OUTPATIENT PROVIDER Notes to Outpatient Provider: Follow up PCP and Endo for hyperglycemia, follow up Ortho Dr Thompson for knee pain/effusion Date of Encounter: 05/21/19 Time of Encounter: 09:46 Hospital course: Dear Doctors, I recently had the opportunity to care for this patient during their recent hospital stay at [facility]. Piedad Neves is a 38 F w hx DM1 on pump, HTN, HLD, asthma, s/p L TKA, who presented at time of admission with N/V. She was found to have BG 600s and was placed on insulin gtt. Her knee was felt initially to be warm and swollen, and thus she was started on abx on admission. In the hospital, at time of my initial exam a few hours after starting abx, there was mild swelling but no erythema or discharge, and pt w/o fever. A CT scan was obtained which showed small effusion and subcutaneous edema. Ortho was consulted to further evaluate the knee; however patient demanded to leave this AM prior to being seen. She stated she would call her Ortho Dr Thompson's office and make a close follow up appointment. She was able to maintain some PO at time of discharge. Further investigation into causes of her N/V, such as possibility for gastroparesis, should be entertained if symptoms persist. Dx: refractory N/V, hyperglycemia, L knee pain and swelling Pertinent tests/consults: CT Knee L Follow up: Endo for hyperglycemia, Ortho for Knee pain Tests pending: none Med changes: none Mental status: awake, fully oriented Code status: Full It has been my pleasure participating in this patient's care. Please contact me with any questions or concerns regarding their hospital stay. Sincerely, Kris Crockett MD - Discharge Medications Prescriptions: New Ondansetron ODT [Zofran ODT] 4 mg SL Q8HR PRN #20 tab.rapdis PRN Reason: Nausea And Vomiting Continued Esomeprazole Magnesium [Nexium] 40 mg PO DAILY Rosuvastatin [Crestor] 20 mg PO HS LORazepam [Lorazepam] 2 mg PO TID PRN PRN Reason: Anxiety Lisinopril [Zestril] 10 mg PO DAILY Quetiapine Fumarate [Seroquel] 100 - 200 mg PO HS PRN PRN Reason: Sleep Cholecalciferol (Vitamin D3) [Vitamin D3] 800 unit PO DAILY Insulin LISPRO [HumaLOG] See Protocol SQ TIDAC #1 vial Cyanocobalamin/Folic AC/Vit B6 [Folbee Tablet] 1 tab PO DAILY FLUoxetine HCl [Fluoxetine HCl] 40 mg PO BID Gabapentin [Neurontin] 400 mg PO HS Lurasidone HCl [Latuda] 60 mg PO DAILY Home Medications: Esomeprazole Magnesium [Nexium] 40 mg PO DAILY 01/20/18 [History] LORazepam [Lorazepam] 2 mg PO TID PRN 01/20/18 [History] Lisinopril [Zestril] 10 mg PO DAILY 01/20/18 [History] Rosuvastatin [Crestor] 20 mg PO HS 01/20/18 [History] Cholecalciferol (Vitamin D3) [Vitamin D3] 800 unit PO DAILY 03/21/18 [History] Quetiapine Fumarate [Seroquel] 100 - 200 mg PO HS PRN 03/21/18 [History] Insulin LISPRO [HumaLOG] See Protocol SQ TIDAC #1 vial 01/28/19 [Rx] Cyanocobalamin/Folic AC/Vit B6 [Folbee Tablet] 1 tab PO DAILY 05/20/19 [History] FLUoxetine HCl [Fluoxetine HCl] 40 mg PO BID 05/20/19 [History] Gabapentin [Neurontin] 400 mg PO HS 05/20/19 [History] Lurasidone HCl [Latuda] 60 mg PO DAILY 05/20/19 [History] Ondansetron ODT [Zofran ODT] 4 mg SL Q8HR PRN #20 tab.rapdis 05/21/19 [Rx] Allergies/Adverse Reactions: Allergy/AdvReac Type Severity Reaction Status Date / Time acetaminophen [From Tylenol] Allergy Rash Verified 05/20/19 16:38 azithromycin Allergy Hives Verified 05/20/19 16:38 Cortisone Allergy Swelling Verified 05/20/19 16:38 of Lip/Tongue/Throat hydrocodone Allergy Anaphylaxis Verified 05/20/19 16:38 ketorolac [From Toradol] Allergy Swelling Verified 05/20/19 16:38 of Lip/Tongue/Throat latex Allergy Rash Verified 05/20/19 16:38 NSAIDS (Non-Steroidal Allergy Swelling Verified 05/20/19 16:38 Anti-Inflamma of Lip/Tongue/Throat Amoxicillin AdvReac Hives Verified 05/20/19 16:38 metoclopramide [From Reglan] AdvReac Vomiting Verified 05/20/19 16:38 tramadol [From Ultram] AdvReac Vomiting Verified 05/20/19 16:38 Date of admission: 05/19/19 21:51 Primary care physician: Nasra Ibarra Consults: 05/20/19 06:00 Consult for Pharmacy Education [CONS] Routine Reason for Consult: insulin pump investigation if working Call Completed: No Consult to Orthopedic Surgery [CONS] Routine Consulting Provider: [facility] Reason for Consult: recent knee joint total surgery concern for left knee pain, worsening pain, edema concern for septic joint. Call Completed: No - Constitutional Vitals: Temp Pulse Resp BP Pulse Ox 97.6 F 82 17 148/82 98 05/21/19 07:49 05/21/19 07:49 05/21/19 07:49 05/21/19 07:49 05/21/19 08:19 Exam: General: NAD, good eye contact, chronically ill appearing Thoracic: Normal breath sounds b/l, no wheezing or crackles Cardio: Normal S1 and S2, regular rate and rhythm, no murmurs Abdomen: Soft, nontender, nondistended Extremities: Warm, well perfused. DP pulses 2+ b/l. L knee with vertical incision well approximated, appears relatively recent, no erythema or discharge. Mild swelling when compared to R knee. Neuro: Awake, fully oriented. Speech fluent - Patient Status Disposition: Home, Self-Care Condition: Fair Functional capacity at discharge: independent ambulation Overall status at discharge: patient is progressing back to baseline - Discharge Instructions Instructions: Asthma (DC), Diabetes Mellitus Type 2 in Adults (DC), Chronic Hypertension (DC) Follow Up With: Toribio Thompson DO [Non-Partnered Physician] - (1-2 weeks. an appointment has been requested.) Nasra Ibarra [Primary Care Provider] - - Diet and Activity Activity: increase activity as tolerated Diet: diabetic diet
[2019-05-22 11:54] LABS: Total Volume 24 Hour,Urine 3.58 Liters (0.60-1.60)
[2019-05-23 15:14] LABS: Amphetamines NEGATIVE ng/mL (Cutoff 30); Barbiturates NEGATIVE ng/mL (Cutoff 75); Benzodiazepines NEGATIVE ng/mL (Cutoff 75); Buprenorphine NEGATIVE ng/mL (Cutoff 1); Cocaine NEGATIVE ng/mL (Cutoff 30); Methadone NEGATIVE ng/mL (Cutoff 40); Methamphetamines NEGATIVE ng/mL (Cutoff 30); Opiates NEGATIVE ng/mL (Cutoff 30); Phencyclidine NEGATIVE ng/mL (Cutoff 15)
[2019-05-25 00:18] LABS: Hydrocodone Confirmation <2 ng/mL
[2019-05-25 10:18] LABS: 6_Acetylmorphine Confirmation <2 ng/mL; Oxymorphone Confirmation <2 ng/mL
== END 2019-05-21 10:15 | disposition home or self-care (01) ==
LOC: 2ANU 17:25 → EMEROOARM 17:25 → SUATTDRO 21:51 → 2ANU 22:29 → 2NNU 05-20 03:34 → 3BNU 05-20 13:51
PROVIDERS: ADMIT Family Medicine; ATTEND Internal Medicine

== ENCOUNTER 2019-07-19 08:10 | Observation (INO) ==
[2019-07-19] MEDS ORDERED: 0.9 % Sodium Chloride 1,000 ML IVC ONE ×2 (08:16→09:38)
[2019-07-19] MEDS ORDERED: *HR* Promethazine 25 MG/ML VIAL IVP ONE (08:16)
[2019-07-19] MEDS ORDERED: *HR* FentaNYL (PF) 100 MCG/2 ML VIAL IVP ONE (08:16)
[2019-07-19 08:57] LABS: Basophils % 0.5 %; Eosinophils # 0.3 K/mcL (0.0-0.6); Eosinophils % 7.4 %; Hematocrit 36.2 % (35.3-44.9); Hemoglobin 11.9 g/dL (11.5-15.4); Immature Granulocytes % 0.3 % (0-4); Lymphocytes # 1.6 K/mcL (0.6-4.6); Lymphocytes % 42.6 %; Mean Corpuscular HGB Conc 32.9 g/dL (31.6-35.5); Mean Corpuscular Hemoglobin 29.8 pg (28.0-33.3); Mean Corpuscular Volume 90.5 fL (83.0-100.0); Monocytes # 0.3 K/mcL (0.0-1.3); Monocytes % 6.6 %; Neutrophils # 1.6 K/mcL (1.6-8.9); Platelet Count 151 K/mcL (140-400); Red Cell Distribution Width 12.4 % (11.5-14.5); Segmented Neutrophils % 42.6 %; White Blood Count 3.8 K/mcL (4.3-11.1)
[2019-07-19 09:01] LABS: VBG HCO3 25 mEq/L (21-27); VBG PCO2 42 mmHg (41-51); VBG PH 7.38 pH Units (7.32-7.42); VBG PO2 160 mmHg (25-50)
[2019-07-19 09:33] LABS: Alanine Aminotransferase 27 Units/L (7-52); Albumin 3.3 g/dL (3.5-5.7); Albumin/Globulin Ratio 1.1 (1.1-2.2); Alkaline Phosphatase 143 Units/L (34-104); Aspartate Amino Transferase 28 Units/L (13-39); BUN/Creatinine Ratio 13 (6-26); Bilirubin,Direct 0.1 mg/dL (0.0-0.2); Bilirubin,Indirect 0.1 mg/dL (0.0-1.0); Bilirubin,Total 0.2 mg/dL (0.3-1.0); Blood Urea Nitrogen 15 mg/dL (6-20); Calcium 8.3 mg/dL (8.6-10.3); Carbon Dioxide 23 mEq/L (23-29); Chloride 100 mEq/L (98-107); Glucose 851 mg/dL (70-105); Lipase 19 Units/L (11-82); Osmolality,Calculated 313 (280-300); Potassium 4.2 mEq/L (3.5-5.1); Sodium 130 mEq/L (136-145); Total Protein 6.3 g/dL (6.4-8.9); eGFR For African Americans > 60 (> 60); eGFR For Non-African Americans 52 (> 60)
[2019-07-19] MEDS ORDERED: Insulin Regular, Human 100 UNIT/ML SQ ONE (09:56)
[2019-07-19 10:26] LABS: Bilirubin,Urine Negative (Negative); Blood,Urine Negative (Negative); Clarity,Urine Clear (Clear); Color,Urine Yellow (Yellow); Glucose,Urine (UA) >=1000 mg/dL (Normal); Ketones,Urine Negative (Negative); Leukocyte Esterase,Urine Negative (Negative); Nitrite,Urine Negative (Negative); Protein,Urine Negative (Neg-Trace); Specific Gravity,Urine 1.024 (1.010-1.025); Urobilinogen,Urine Normal (Normal)
[2019-07-19] MEDS ORDERED: Naloxone 0.4 MG/ML INJ IVP PRN (13:08)
[2019-07-19] MEDS ORDERED: Ondansetron 4 MG/2 ML VIAL IVP PRN (13:08)
[2019-07-19] MEDS ORDERED: *HR* Promethazine 25 MG/ML VIAL IVP PRN (13:08)
[2019-07-19] MEDS ORDERED: Insulin Regular, Human 100 UNIT/ML IV PRN (13:16)
[2019-07-19] MEDS ORDERED: *HR* Dextrose 50 % in Water (Syg) 50 ML SYRINGE IVP PRN (13:16)
[2019-07-19] MEDS ORDERED: *HR* FentaNYL (PF) 100 MCG/2 ML VIAL IVP PRN (13:21)
[2019-07-19] MEDS ORDERED: Insulin Human Regular 100 UNIT in 0.9 % Sodium Chloride 100 ML IVC SCH (13:30)
[2019-07-19] MEDS ORDERED: 0.9 % Sodium Chloride 1,000 ML IVC SCH (13:30)
[2019-07-19 15:15] LABS: BUN/Creatinine Ratio 14 (6-26); Blood Urea Nitrogen 15 mg/dL (6-20); Calcium 8.6 mg/dL (8.6-10.3); Carbon Dioxide 26 mEq/L (23-29); Chloride 99 mEq/L (98-107); Glucose 765 mg/dL (70-105); Osmolality,Calculated 314 (280-300); Potassium 4.3 mEq/L (3.5-5.1); Sodium 133 mEq/L (136-145); eGFR For African Americans > 60 (> 60); eGFR For Non-African Americans 56 (> 60)
[2019-07-19] MEDS ORDERED: *HR* HYDROmorphone 2 MG/ML SYRINGE IVP STA (15:17)
[2019-07-19 15:51] VITALS: BP 133/97
[2019-07-19] MEDS ORDERED: NON-FORMULARY MEDICATION 1 EACH EACH (Lorazepam [Lorazepam] 2 MG) PO PRN (16:10)
[2019-07-19] MEDS ORDERED: Orphenadrine 100 MG TABLET.ER PO SCH (21:00)
[2019-07-19] MEDS ORDERED: Gabapentin 400 MG CAPSULE PO SCH (21:00)
[2019-07-19] MEDS ORDERED: NON-FORMULARY MEDICATION 1 EACH EACH (Fluoxetine Hcl [Fluoxetine Hcl] 40 MG) PO SCH (21:00)
[2019-07-19] MEDS ORDERED: *HR* Heparin 5,000 UNIT/ML VIAL SQ SCH (22:00)
[2019-07-20] MEDS ORDERED: LURASIDONE HCL 60 MG PO SCH (09:00)
[2019-07-20] MEDS ORDERED: NON-FORMULARY MEDICATION 1 EACH EACH (Esomeprazole Magnesium [Nexium] 40 MG) PO SCH (09:00)
== END 2019-07-19 18:04 | disposition left against medical advice (07) ==
LOC: 2NNU 08:10 → EMEROOARM 08:10 → 2NNU 12:53
PROVIDERS: ADMIT Family Medicine; ATTEND Family Medicine

== ENCOUNTER 2019-11-04 12:21 | Observation (INO) ==
[2019-11-04] MEDS ORDERED: *HR* Dextrose 50 % in Water (Syg) 50 ML SYRINGE IVP PRN ×2 (12:29→16:05)
[2019-11-04] MEDS ORDERED: Insulin Human Regular 100 UNIT in 0.9 % Sodium Chloride 100 ML IVC SCH (12:30)
[2019-11-04] MEDS: 0.9 % Sodium Chloride 1,000 ML IVC SCH ×2 (12:44→13:45)
[2019-11-04 13:14] LABS: Bilirubin,Urine Negative (Negative); Blood,Urine Negative (Negative); Clarity,Urine Cloudy (Clear); Color,Urine Yellow (Yellow); Glucose,Urine (UA) >=1000 mg/dL (Normal); Ketones,Urine Trace mg/dL (Negative); Leukocyte Esterase,Urine Negative (Negative); Nitrite,Urine Negative (Negative); Protein,Urine Negative (Neg-Trace); Specific Gravity,Urine 1.023 (1.010-1.025); Urobilinogen,Urine Normal (Normal)
[2019-11-04 13:15] LABS: Bacteria,Urine Many per hpf (None-Few); Hyaline Casts,Urine None Seen per lpf (None-Few); RBC,Urine 0-3 per hpf (0-3); Squamous Epithelial Cell,Urine Many per lpf (None-Few); WBC,Urine 0-3 per hpf (0-3)
[2019-11-04 13:15] LABS: Basophils % 0.3 %; Eosinophils # 0.2 K/mcL (0.0-0.6); Eosinophils % 2.9 %; Hematocrit 37.9 % (35.3-44.9); Hemoglobin 12.8 g/dL (11.5-15.4); Immature Granulocytes % 0.3 % (0-4); Lymphocytes # 1.2 K/mcL (0.6-4.6); Lymphocytes % 18.6 %; Mean Corpuscular HGB Conc 33.8 g/dL (31.6-35.5); Mean Corpuscular Hemoglobin 30.8 pg (28.0-33.3); Mean Corpuscular Volume 91.1 fL (83.0-100.0); Mean Platelet Volume 10.2 fL (9.4-12.4); Monocytes # 0.2 K/mcL (0.0-1.3); Monocytes % 3.2 %; Platelet Count 165 K/mcL (140-400); Red Blood Count 4.16 M/mcL (3.82-4.97); Red Cell Distribution Width 12.4 % (11.5-14.5); Segmented Neutrophils % 74.7 %; White Blood Count 6.6 K/mcL (4.3-11.1)
[2019-11-04] MEDS ORDERED: Ondansetron 4 MG/2 ML VIAL IVP STA (13:35)
[2019-11-04] MEDS ORDERED: *HR* Promethazine 25 MG/ML VIAL ONE (13:42)
[2019-11-04 13:48] LABS: Alanine Aminotransferase 25 Units/L (7-52); Albumin 3.8 g/dL (3.5-5.7); Albumin/Globulin Ratio 1.2 (1.1-2.2); Alkaline Phosphatase 122 Units/L (34-104); Aspartate Amino Transferase 25 Units/L (13-39); BUN/Creatinine Ratio 15 (6-26); Bilirubin,Total 0.5 mg/dL (0.3-1.0); Blood Urea Nitrogen 17 mg/dL (6-20); Calcium 9.1 mg/dL (8.6-10.3); Carbon Dioxide 22 mEq/L (23-29); Chloride 99 mEq/L (98-107); Globulin 3.2 g/dL (2.4-3.5); Glucose 618 mg/dL (70-105); Magnesium 1.6 mg/dL (1.6-2.6); Osmolality,Calculated 300 (280-300); Potassium 4.5 mEq/L (3.5-5.1); Sodium 130 mEq/L (136-145); Troponin I < 0.03 ng/mL (< 0.04); eGFR For African Americans > 60 (> 60); eGFR For Non-African Americans 52 (> 60)
[2019-11-04 13:49] LABS: Amphetamine Screen,Urine Negative ng/mL (Cutoff=1000); Barbiturate Screen,Urine Negative ng/mL (Cutoff=200); Benzodiazepines Screen,Urine Negative ng/mL (Cutoff=200); Cannabinoid Screen,Urine Positive ng/mL (Cutoff = 50); Cocaine Screen,Urine Positive ng/mL (Cutoff= 300); Opiate Screen,Urine Negative ng/mL (Cutoff=300); Phencyclidine Screen,Urine Negative ng/mL (Cutoff=25)
[2019-11-04] MEDS ORDERED: *HR* Promethazine 25 MG/ML VIAL IVP ONE (13:53)
[2019-11-04] MEDS ORDERED: Hyoscyamine SL 0.125 MG TAB.SUBL SL STA (13:57)
[2019-11-04 14:12] LABS: Estimated Average Glucose 286 mg/dl
[2019-11-04 15:24] LABS: ABG Base Excess -1 mEq/L (-2 to 3); ABG HCO3 23 mEq/L (21-27); ABG Oxygen Saturation 99 % (95-98); ABG PCO2 35 mmHg (35-45); ABG PH 7.43 pH Units (7.32-7.45); ABG PO2 126 mmHg (85-104); ABG TCO2 25 mEq/L (20-26)
[2019-11-04] MEDS ORDERED: *HR* Promethazine 25 MG/ML VIAL IVP STA (15:50)
[2019-11-04] MEDS ORDERED: *HR* Promethazine 25 MG/ML VIAL IVP PRN (15:59)
[2019-11-04] MEDS ORDERED: Naloxone 0.4 MG/ML INJ IVP PRN (15:59)
[2019-11-04] MEDS ORDERED: MOM Conc 10 ML UD.LIQ PO PRN (15:59)
[2019-11-04] MEDS ORDERED: Ondansetron 4 MG/2 ML VIAL IVP PRN (15:59)
[2019-11-04] MEDS ORDERED: Mag Hydrox/Al Hydrox/Simeth 30 ML UDC PO PRN (15:59)
[2019-11-04] MEDS ORDERED: Dextrose Gel 15 GM/37.5 ML TUBE PO PRN ×2 (16:05)
[2019-11-04] MEDS ORDERED: D5% in Water 1,000 ML IVC PRN (16:05)
[2019-11-04] MEDS ORDERED: QUEtiapine Fumarate 100 MG TABLET PO PRN (16:10)
[2019-11-04] MEDS ORDERED: *HR* LORazepam 1 MG TABLET PO PRN (16:10)
[2019-11-04] MEDS ORDERED: Insulin DETEMIR 100 UNIT/ML X5UNITS SQ SCH ×2 (16:30→21:00)
[2019-11-04] MEDS ORDERED: *HR* Heparin 5,000 UNIT/ML VIAL SQ SCH (18:00)
[2019-11-04] MEDS ORDERED: Insulin LISPRO 300 UNITS/3 ML VIAL SQ SCH (18:00)
[2019-11-04] MEDS ORDERED: Morphine Sulfate 2 MG/ML SYRINGE IVP ONE (19:41)
[2019-11-04] MEDS ORDERED: *HR* OxyCODONE Immed Rel 5 MG TABLET PO PRN (19:42)
[2019-11-04] MEDS ORDERED: NON-FORMULARY MEDICATION 1 EACH EACH (Fluoxetine Hcl [Fluoxetine Hcl] 40 MG) PO SCH (21:00)
[2019-11-04] MEDS ORDERED: Gabapentin 400 MG CAPSULE PO SCH (21:00)
[2019-11-05 00:14] VITALS: BP 143/91
[2019-11-05] MEDS ORDERED: NON-FORMULARY MEDICATION 1 EACH EACH (Esomeprazole Magnesium [Nexium] 40 MG) PO SCH (09:00)
== END 2019-11-05 00:32 | disposition left against medical advice (07) ==
LOC: EMEROOARM 12:21 → 3BNU 12:21
PROVIDERS: ADMIT Internal Medicine; ATTEND Internal Medicine

== ENCOUNTER 2019-11-09 16:29 | Observation (INO) ==
[2019-11-09] MEDS ORDERED: *HR* Dextrose 50 % in Water (Syg) 50 ML SYRINGE IVP PRN (18:10)
[2019-11-09] MEDS ORDERED: Insulin Human Regular 100 UNIT in 0.9 % Sodium Chloride 100 ML IVC SCH (18:15)
[2019-11-09 19:00] LABS: VBG HCO3 23 mEq/L (21-27); VBG PCO2 32 mmHg (41-51); VBG PH 7.47 pH Units (7.32-7.42); VBG PO2 141 mmHg (25-50)
[2019-11-09 19:07] LABS: Basophils % 0.3 %; Eosinophils # 0.1 K/mcL (0.0-0.6); Eosinophils % 1.7 %; Hematocrit 37.4 % (35.3-44.9); Hemoglobin 12.2 g/dL (11.5-15.4); Immature Granulocytes % 0.2 % (0-4); Lymphocytes # 0.9 K/mcL (0.6-4.6); Lymphocytes % 15.9 %; Mean Corpuscular HGB Conc 32.6 g/dL (31.6-35.5); Mean Corpuscular Hemoglobin 30.5 pg (28.0-33.3); Mean Corpuscular Volume 93.5 fL (83.0-100.0); Mean Platelet Volume 10.4 fL (9.4-12.4); Monocytes # 0.2 K/mcL (0.0-1.3); Monocytes % 3.5 %; Neutrophils # 4.5 K/mcL (1.6-8.9); Platelet Count 161 K/mcL (140-400); Red Cell Distribution Width 12.5 % (11.5-14.5); Segmented Neutrophils % 78.4 %; White Blood Count 5.7 K/mcL (4.3-11.1)
[2019-11-09] MEDS: 0.9 % Sodium Chloride 1,000 ML IVC SCH (19:24)
[2019-11-09 19:32] LABS: BUN/Creatinine Ratio 16 (6-26); Blood Urea Nitrogen 19 mg/dL (6-20); Calcium 8.7 mg/dL (8.6-10.3); Carbon Dioxide 22 mEq/L (23-29); Chloride 95 mEq/L (98-107); Magnesium 1.6 mg/dL (1.6-2.6); Sodium 124 mEq/L (136-145); Troponin I < 0.03 ng/mL (< 0.04); eGFR For African Americans 60 (> 60); eGFR For Non-African Americans 49 (> 60)
[2019-11-09 19:47] LABS: Glucose 883 mg/dL (70-105); Osmolality,Calculated 304 (280-300)
[2019-11-09] MEDS ORDERED: Insulin Regular, Human 100 UNIT/ML SQ ONE (19:49)
[2019-11-09] MEDS ORDERED: Metoclopramide 10 MG/2 ML VIAL IVP ONE (21:05)
[2019-11-09] MEDS: 0.9 % Sodium Chloride 1,000 ML IVC ONE ×2 (21:14→21:53)
[2019-11-09] MEDS: Insulin Human Regular 100 UNIT in 0.9 % Sodium Chloride 100 ML IVC SCH (21:14)
[2019-11-09] MEDS ORDERED: *HR* Promethazine 25 MG/ML VIAL IVP ONE (22:04)
[2019-11-09] MEDS ORDERED: *HR* Nalbuphine 10 MG/ML AMPUL IV STA (23:00)
[2019-11-09] MEDS ORDERED: *HR* Promethazine 25 MG/ML VIAL IVP PRN (23:26)
[2019-11-09] MEDS ORDERED: Naloxone 0.4 MG/ML INJ IVP PRN (23:26)
[2019-11-09] MEDS ORDERED: Potassium Chloride 40 MEQ, Lidocaine 1% 2 ML in 0.9 % Sodium Chloride 500 ML IVPB ONE (23:28)
[2019-11-09] MEDS ORDERED: 0.9 % Sodium Chloride 1,000 ML IVC SCH (23:30)
[2019-11-09] MEDS ORDERED: *HR* LORazepam 1 MG TABLET PO PRN (23:41)
[2019-11-09] MEDS ORDERED: QUEtiapine Fumarate 100 MG TABLET PO PRN (23:41)
[2019-11-09] MEDS ORDERED: Gabapentin 400 MG CAPSULE PO SCH (23:45)
[2019-11-10] MEDS: 0.9 % Sodium Chloride 1,000 ML IVC SCH (01:30)
[2019-11-10] MEDS ORDERED: QUEtiapine Fumarate 100 MG TABLET PO PRN (01:30)
[2019-11-10] MEDS: Insulin Human Regular 100 UNIT in 0.9 % Sodium Chloride 100 ML IVC SCH (02:36)
[2019-11-10 02:48] LABS: VBG HCO3 23 mEq/L (21-27); VBG PCO2 34 mmHg (41-51); VBG PH 7.44 pH Units (7.32-7.42); VBG PO2 176 mmHg (25-50)
[2019-11-10] MEDS ORDERED: D5% in Water 1,000 ML IVC PRN (02:53)
[2019-11-10] MEDS ORDERED: *HR* Dextrose 50 % in Water (Syg) 50 ML SYRINGE IVP PRN (02:53)
[2019-11-10] MEDS ORDERED: Dextrose Gel 15 GM/37.5 ML TUBE PO PRN ×2 (02:53)
[2019-11-10] MEDS ORDERED: Insulin DETEMIR 100 UNIT/ML X5UNITS SQ SCH ×2 (03:00→21:00)
[2019-11-10 03:03] LABS: Hematocrit 34.8 % (35.3-44.9); Mean Corpuscular HGB Conc 34.5 g/dL (31.6-35.5); Mean Corpuscular Hemoglobin 30.6 pg (28.0-33.3); Mean Corpuscular Volume 88.8 fL (83.0-100.0); Mean Platelet Volume 10.8 fL (9.4-12.4); Platelet Count 180 K/mcL (140-400); Red Blood Count 3.92 M/mcL (3.82-4.97); Red Cell Distribution Width 12.5 % (11.5-14.5); White Blood Count 6.1 K/mcL (4.3-11.1)
[2019-11-10 03:36] LABS: Alanine Aminotransferase 24 Units/L (7-52); Albumin 3.8 g/dL (3.5-5.7); Albumin/Globulin Ratio 1.2 (1.1-2.2); Alkaline Phosphatase 105 Units/L (34-104); Aspartate Amino Transferase 17 Units/L (13-39); BUN/Creatinine Ratio 15 (6-26); Bilirubin,Total 0.5 mg/dL (0.3-1.0); Blood Urea Nitrogen 15 mg/dL (6-20); Calcium 8.8 mg/dL (8.6-10.3); Carbon Dioxide 21 mEq/L (23-29); Chloride 106 mEq/L (98-107); Globulin 3.1 g/dL (2.4-3.5); Glucose 269 mg/dL (70-105); Osmolality,Calculated 292 (280-300); Potassium 3.3 mEq/L (3.5-5.1); Sodium 136 mEq/L (136-145); Total Protein 6.9 g/dL (6.4-8.9); eGFR For African Americans > 60 (> 60); eGFR For Non-African Americans > 60 (> 60)
[2019-11-10] MEDS: Insulin LISPRO 300 UNITS/3 ML VIAL SQ SCH ×4 (03:48→16:48)
[2019-11-10] MEDS: *HR* Promethazine 25 MG/ML VIAL IVP PRN ×2 (03:54→11:56)
[2019-11-10] MEDS ORDERED: *HR* OxyCODONE Immed Rel 5 MG TABLET PO PRN (06:35)
[2019-11-10] MEDS ORDERED: D5% in 0.45% NACL 1,000 ML IVC SCH (08:15)
[2019-11-10] MEDS: lisinopriL 10 MG TABLET PO SCH ×2 (08:19→09:11)
[2019-11-10] MEDS ORDERED: *HR* HYDROmorphone (PF) 1 MG/ML SYRINGE IVP ONE (11:50)
[2019-11-10 16:19] VITALS: BP 135/71
[2019-11-11] MEDS ORDERED: *HR* Enoxaparin 40 MG/0.4 ML SYRINGE SQ SCH (06:00)
== END 2019-11-10 18:00 | disposition left against medical advice (07) ==
LOC: 2NNU 16:29 → EMEROOARM 16:29 → 2NNU 11-10 00:40
PROVIDERS: ADMIT Student in an Organized Health Care Education/Training Program; ATTEND Student in an Organized Health Care Education/Training Program

== ENCOUNTER 2019-12-02 20:12 | Observation (INO) ==
[2019-12-02] MEDS ORDERED: 0.9 % Sodium Chloride 1,000 ML IVC ONE ×2 (20:15)
[2019-12-02] MEDS ORDERED: *HR* Promethazine 25 MG/ML VIAL IVP ONE (20:44)
[2019-12-02 20:47] LABS: Basophils % 0.4 %; Eosinophils # 0.1 K/mcL (0.0-0.6); Eosinophils % 1.5 %; Hematocrit 35.8 % (35.3-44.9); Hemoglobin 12.2 g/dL (11.5-15.4); Immature Granulocytes % 0.4 % (0-4); Lymphocytes # 1.4 K/mcL (0.6-4.6); Mean Corpuscular HGB Conc 34.1 g/dL (31.6-35.5); Mean Corpuscular Hemoglobin 30.2 pg (28.0-33.3); Mean Corpuscular Volume 88.6 fL (83.0-100.0); Mean Platelet Volume 10.2 fL (9.4-12.4); Monocytes # 0.3 K/mcL (0.0-1.3); Monocytes % 3.2 %; Neutrophils # 6.4 K/mcL (1.6-8.9); Platelet Count 215 K/mcL (140-400); Red Blood Count 4.04 M/mcL (3.82-4.97); Red Cell Distribution Width 12.5 % (11.5-14.5); Segmented Neutrophils % 77.5 %; White Blood Count 8.2 K/mcL (4.3-11.1)
[2019-12-02 20:50] LABS: VBG HCO3 27 mEq/L (21-27); VBG PCO2 47 mmHg (41-51); VBG PH 7.36 pH Units (7.32-7.42); VBG PO2 67 mmHg (25-50)
[2019-12-02 21:15] LABS: Albumin/Globulin Ratio 1.3 (1.1-2.2); Bilirubin,Total 0.4 mg/dL (0.3-1.0); Calcium 9.4 mg/dL (8.6-10.3); Globulin 3.1 g/dL (2.4-3.5); Magnesium 1.6 mg/dL (1.6-2.6); Phosphorous 3.2 mg/dL (2.7-4.5); Potassium 3.6 mEq/L (3.5-5.1); Total Protein 7.1 g/dL (6.4-8.9)
[2019-12-02 21:22] LABS: Bilirubin,Urine Negative (Negative); Blood,Urine Negative (Negative); Clarity,Urine Clear (Clear); Color,Urine Yellow (Yellow); Glucose,Urine (UA) >=1000 mg/dL (Normal); Ketones,Urine Negative (Negative); Leukocyte Esterase,Urine Negative (Negative); Nitrite,Urine Negative (Negative); Protein,Urine Negative (Neg-Trace); Specific Gravity,Urine > 1.030 (1.010-1.025); Urobilinogen,Urine Normal (Normal)
[2019-12-02] MEDS ORDERED: Insulin Human Regular 10 UNIT in 0.9 % Sodium Chloride 10 ML IV ONE (21:40)
[2019-12-02] MEDS ORDERED: *HR* FentaNYL (PF) 100 MCG/2 ML VIAL IVP ONE (21:57)
[2019-12-02] MEDS ORDERED: Promethazine 12.5 MG in 0.9 % Sodium Chloride 50 ML IVPB ONE (23:29)
[2019-12-03] MEDS ORDERED: Naloxone 0.4 MG/ML INJ IVP PRN (02:52)
[2019-12-03] MEDS ORDERED: Dextrose Gel 15 GM/37.5 ML TUBE PO PRN ×2 (02:53)
[2019-12-03] MEDS ORDERED: D5% in Water 1,000 ML IVC PRN (02:53)
[2019-12-03] MEDS ORDERED: *HR* Dextrose 50 % in Water (Syg) 50 ML SYRINGE IVP PRN (02:53)
[2019-12-03 03:38] LABS: Hematocrit 33.4 % (35.3-44.9); Hemoglobin 11.7 g/dL (11.5-15.4); Mean Corpuscular Hemoglobin 30.5 pg (28.0-33.3); Mean Platelet Volume 10.5 fL (9.4-12.4); Platelet Count 188 K/mcL (140-400); Red Blood Count 3.84 M/mcL (3.82-4.97); Red Cell Distribution Width 12.5 % (11.5-14.5); White Blood Count 6.6 K/mcL (4.3-11.1)
[2019-12-03 03:50] LABS: BUN/Creatinine Ratio 19 (6-26); Blood Urea Nitrogen 19 mg/dL (6-20); Calcium 9.1 mg/dL (8.6-10.3); Carbon Dioxide 25 mEq/L (23-29); Chloride 107 mEq/L (98-107); Glucose 126 mg/dL (70-105); Osmolality,Calculated 288 (280-300); Potassium 2.9 mEq/L (3.5-5.1); Sodium 137 mEq/L (136-145); eGFR For African Americans > 60 (> 60); eGFR For Non-African Americans > 60 (> 60)
[2019-12-03] MEDS: Insulin LISPRO 300 UNITS/3 ML VIAL SQ SCH ×5 (07:32→16:38)
[2019-12-03] MEDS ORDERED: *HR* LORazepam 1 MG TABLET PO PRN (07:58)
[2019-12-03] MEDS ORDERED: QUEtiapine Fumarate 100 MG TABLET PO PRN (07:58)
[2019-12-03] MEDS ORDERED: Cholecalciferol (D-3) 1,000 UNIT (25MCG) TABLET PO SCH (09:00)
[2019-12-03] MEDS ORDERED: Vitamin B Complex/Vit C/Vit E 1 EACH TABLET PO SCH (09:00)
[2019-12-03] MEDS ORDERED: Insulin DETEMIR 100 UNIT/ML X5UNITS SQ SCH ×2 (09:00→21:00)
[2019-12-03] MEDS: *HR* Promethazine 25 MG/ML VIAL IVP PRN ×2 (10:03→21:12)
[2019-12-03] MEDS ORDERED: *HR* FentaNYL PATCH 12 MCG PATCH TD SCH (11:00)
[2019-12-03] MEDS ORDERED: Insulin LISPRO 300 UNITS/3 ML VIAL SQ ONE (12:45)
[2019-12-03 18:57] VITALS: BP 126/76
[2019-12-03] MEDS ORDERED: Insulin LISPRO 300 UNITS/3 ML VIAL SQ SCH (21:00)
[2019-12-03] MEDS ORDERED: Gabapentin 400 MG CAPSULE PO SCH (21:00)
== END 2019-12-03 23:14 | disposition left against medical advice (07) ==
LOC: EMEROOARM 20:12 → 3BNU 20:12 → SUATTDRO 12-03 00:12 → 3BNU 12-03 00:30
PROVIDERS: ADMIT Family Medicine; ATTEND Internal Medicine

== ENCOUNTER 2019-12-07 15:00 | Observation (INO) ==
[2019-12-07] MEDS ORDERED: 0.9 % Sodium Chloride 1,000 ML IVC ONE (15:05)
[2019-12-07] MEDS ORDERED: Ringers Solution, Lactated 1,000 ML IVC ONE (15:36)
[2019-12-07] MEDS ORDERED: *HR* Promethazine 25 MG/ML VIAL IVP ONE (16:14)
[2019-12-07] MEDS ORDERED: *HR* FentaNYL (PF) 100 MCG/2 ML VIAL IVP ONE (16:14)
[2019-12-07 16:22] LABS: VBG HCO3 25 mEq/L (21-27); VBG PCO2 44 mmHg (41-51); VBG PH 7.36 pH Units (7.32-7.42); VBG PO2 103 mmHg (25-50)
[2019-12-07 16:37] LABS: BUN/Creatinine Ratio 23 (6-26); Blood Urea Nitrogen 30 mg/dL (6-20); Calcium 8.9 mg/dL (8.6-10.3); Carbon Dioxide 23 mEq/L (23-29); Chloride 96 mEq/L (98-107); Glucose 775 mg/dL (70-105); Osmolality,Calculated 310 (280-300); Potassium 4.5 mEq/L (3.5-5.1); Sodium 128 mEq/L (136-145); eGFR For African Americans 56 (> 60); eGFR For Non-African Americans 46 (> 60)
[2019-12-07 16:40] LABS: Basophils % 0.3 %; Eosinophils # 0.1 K/mcL (0.0-0.6); Eosinophils % 1.5 %; Hematocrit 33.1 % (35.3-44.9); Hemoglobin 11.3 g/dL (11.5-15.4); Immature Granulocytes % 0.3 % (0-4); Lymphocytes % 17.3 %; Mean Corpuscular HGB Conc 34.1 g/dL (31.6-35.5); Mean Corpuscular Hemoglobin 30.4 pg (28.0-33.3); Mean Platelet Volume 10.6 fL (9.4-12.4); Monocytes # 0.3 K/mcL (0.0-1.3); Monocytes % 4.5 %; Neutrophils # 4.4 K/mcL (1.6-8.9); Platelet Count 160 K/mcL (140-400); Red Blood Count 3.72 M/mcL (3.82-4.97); Red Cell Distribution Width 12.4 % (11.5-14.5); Segmented Neutrophils % 76.1 %; White Blood Count 5.8 K/mcL (4.3-11.1)
[2019-12-07] MEDS ORDERED: Insulin Human Regular 10 UNIT in 0.9 % Sodium Chloride 10 ML IV ONE (16:45)
[2019-12-07] MEDS ORDERED: Ondansetron 4 MG/2 ML VIAL IVP PRN ×2 (16:57→17:15)
[2019-12-07] MEDS ORDERED: Acetaminophen 325 MG TABLET PO PRN (16:57)
[2019-12-07] MEDS ORDERED: *HR* HYDROcodone/Acet 5/325 mg TABLET PO PRN (16:57)
[2019-12-07] MEDS ORDERED: Naloxone 0.4 MG/ML INJ IVP PRN (16:57)
[2019-12-07] MEDS ORDERED: 0.9 % Sodium Chloride 1,000 ML IVC SCH (17:00)
[2019-12-07] MEDS ORDERED: D5% in Water 1,000 ML IVC PRN (17:03)
[2019-12-07] MEDS ORDERED: Dextrose Gel 15 GM/37.5 ML TUBE PO PRN ×2 (17:03)
[2019-12-07] MEDS ORDERED: *HR* Dextrose 50 % in Water (Syg) 50 ML SYRINGE IVP PRN (17:03)
[2019-12-07] MEDS ORDERED: Insulin LISPRO 300 UNITS/3 ML VIAL SQ ONE (17:26)
[2019-12-07] MEDS ORDERED: D5% in 0.45% NACL 1,000 ML IVC PRN (17:26)
[2019-12-07] MEDS: 0.9 % Sodium Chloride 1,000 ML IVC SCH (17:28)
[2019-12-07] MEDS ORDERED: Insulin Human Regular 100 UNIT in 0.9 % Sodium Chloride 100 ML IVC SCH (17:30)
[2019-12-07 17:36] LABS: Troponin I < 0.03 ng/mL (< 0.04)
[2019-12-07] MEDS: 0.9 % Sodium Chloride w KCl 20 MEQ/1,000 ML MLS IVC SCH ×2 (19:03→21:34)
[2019-12-07 19:34] LABS: Calcium 9.1 mg/dL (8.6-10.3); Potassium 3.8 mEq/L (3.5-5.1)
[2019-12-07] MEDS: *HR* FentaNYL (PF) 100 MCG/2 ML VIAL IVP PRN (21:14)
[2019-12-07] MEDS: Promethazine 25 MG in 0.9 % Sodium Chloride 50 ML IVPB PRN (21:17)
[2019-12-07] MEDS: D5% in 0.45% NACL w KCl 20 MEQ/1,000 ML MLS IVC PRN (23:04)
[2019-12-07] MEDS ORDERED: *HR* LORazepam 1 MG TABLET PO PRN (23:43)
[2019-12-08] MEDS: *HR* FentaNYL (PF) 100 MCG/2 ML VIAL IVP PRN (01:13)
[2019-12-08] MEDS ORDERED: QUEtiapine Fumarate 100 MG TABLET PO SCH (01:15)
[2019-12-08] MEDS ORDERED: Gabapentin 400 MG CAPSULE PO SCH (01:15)
[2019-12-08] MEDS: Promethazine 25 MG in 0.9 % Sodium Chloride 50 ML IVPB PRN (01:36)
[2019-12-08 02:07] LABS: BUN/Creatinine Ratio 24 (6-26); Blood Urea Nitrogen 22 mg/dL (6-20); Calcium 8.4 mg/dL (8.6-10.3); Carbon Dioxide 23 mEq/L (23-29); Chloride 108 mEq/L (98-107); Glucose 167 mg/dL (70-105); Osmolality,Calculated 291 (280-300); Sodium 137 mEq/L (136-145); eGFR For African Americans > 60 (> 60); eGFR For Non-African Americans > 60 (> 60)
[2019-12-08 02:48] LABS: BUN/Creatinine Ratio 24 (6-26); Blood Urea Nitrogen 22 mg/dL (6-20); Calcium 8.2 mg/dL (8.6-10.3); Carbon Dioxide 21 mEq/L (23-29); Chloride 108 mEq/L (98-107); Glucose 268 mg/dL (70-105); Osmolality,Calculated 293 (280-300); Potassium 4.4 mEq/L (3.5-5.1); Sodium 135 mEq/L (136-145); eGFR For African Americans > 60 (> 60); eGFR For Non-African Americans > 60 (> 60)
[2019-12-08] MEDS: D5% in 0.45% NACL w KCl 20 MEQ/1,000 ML MLS IVC PRN ×2 (03:12→06:51)
[2019-12-08] MEDS: 0.45 % Sodium Chloride w/KCl 20 MEQ/1,000 ML MLS IVC SCH ×4 (03:55→06:45)
[2019-12-08] MEDS: 0.9 % Sodium Chloride 1,000 ML IVC SCH (04:08)
[2019-12-08 05:00] LABS: Hematocrit 31.9 % (35.3-44.9); Mean Corpuscular HGB Conc 34.5 g/dL (31.6-35.5); Mean Corpuscular Hemoglobin 31.3 pg (28.0-33.3); Mean Corpuscular Volume 90.9 fL (83.0-100.0); Mean Platelet Volume 9.9 fL (9.4-12.4); Platelet Count 158 K/mcL (140-400); Red Blood Count 3.51 M/mcL (3.82-4.97); Red Cell Distribution Width 12.5 % (11.5-14.5); White Blood Count 4.7 K/mcL (4.3-11.1)
[2019-12-08 05:18] LABS: BUN/Creatinine Ratio 23 (6-26); Blood Urea Nitrogen 20 mg/dL (6-20); Calcium 8.3 mg/dL (8.6-10.3); Carbon Dioxide 22 mEq/L (23-29); Chloride 112 mEq/L (98-107); Glucose 161 mg/dL (70-105); Osmolality,Calculated 294 (280-300); Potassium 3.5 mEq/L (3.5-5.1); Sodium 139 mEq/L (136-145); eGFR For African Americans > 60 (> 60); eGFR For Non-African Americans > 60 (> 60)
[2019-12-08] MEDS ORDERED: Insulin DETEMIR 100 UNIT/ML X5UNITS SQ ONE (05:48)
[2019-12-08] MEDS ORDERED: Dextrose Gel 15 GM/37.5 ML TUBE PO PRN ×2 (05:50)
[2019-12-08] MEDS ORDERED: *HR* Dextrose 50 % in Water (Syg) 50 ML SYRINGE IVP PRN (05:50)
[2019-12-08] MEDS ORDERED: D5% in Water 1,000 ML IVC PRN (05:50)
[2019-12-08] MEDS: 0.9 % Sodium Chloride w KCl 20 MEQ/1,000 ML MLS IVC SCH (06:46)
[2019-12-08 07:28] VITALS: BP 110/75
[2019-12-08] MEDS ORDERED: Insulin LISPRO 300 UNITS/3 ML VIAL SQ SCH ×2 (07:30→21:00)
[2019-12-08 08:14] LABS: Bilirubin,Urine Negative (Negative); Blood,Urine Trace (Negative); Clarity,Urine Clear (Clear); Color,Urine Yellow (Yellow); Glucose,Urine (UA) >=1000 mg/dL (Normal); Ketones,Urine Negative (Negative); Leukocyte Esterase,Urine Small (Negative); Nitrite,Urine Negative (Negative); PH,Urine 6.5 pH Units (5.0-8.0); Protein,Urine Negative (Neg-Trace); Specific Gravity,Urine 1.029 (1.010-1.025); Urobilinogen,Urine Normal (Normal)
[2019-12-08 08:16] LABS: Hyaline Casts,Urine None Seen per lpf (None-Few); RBC,Urine 0-3 per hpf (0-3)
[2019-12-08 08:34] LABS: Squamous Epithelial Cell,Urine Few per lpf (None-Few)
[2019-12-08 08:35] LABS: WBC,Urine 15-30 per hpf (0-3); Yeast,Urine Many per hpf (None Seen)
[2019-12-08 08:36] LABS: Bacteria,Urine Few per hpf (None-Few)
[2019-12-08] MEDS ORDERED: Cholecalciferol (D-3) 1,000 UNIT (25MCG) TABLET PO SCH (09:00)
[2019-12-08] MEDS ORDERED: Insulin DETEMIR 100 UNIT/ML X5UNITS SQ SCH (21:00)
== END 2019-12-08 10:17 | disposition left against medical advice (07) ==
LOC: EMEROOARM 15:00 → 3NENU 15:00 → SUATTDRO 17:44 → 3NENU 18:20
PROVIDERS: ADMIT Student in an Organized Health Care Education/Training Program; ATTEND Internal Medicine

== ENCOUNTER 2020-04-23 17:31 | Observation (INO) ==
[2020-04-23 18:49] LABS: Basophils % 0.6 %; Eosinophils # 0.2 K/mcL (0.0-0.6); Eosinophils % 3.3 %; Hematocrit 36.2 % (35.3-44.9); Immature Granulocytes % 0.2 % (0-4); Lymphocytes # 1.1 K/mcL (0.6-4.6); Lymphocytes % 19.7 %; Mean Corpuscular HGB Conc 33.1 g/dL (31.6-35.5); Mean Corpuscular Hemoglobin 28.9 pg (28.0-33.3); Mean Corpuscular Volume 87.2 fL (83.0-100.0); Mean Platelet Volume 9.6 fL (9.4-12.4); Monocytes # 0.2 K/mcL (0.0-1.3); Monocytes % 3.2 %; Neutrophils # 3.9 K/mcL (1.6-8.9); Platelet Count 212 K/mcL (140-400); Red Blood Count 4.15 M/mcL (3.82-4.97); Red Cell Distribution Width 13.3 % (11.5-14.5); White Blood Count 5.4 K/mcL (4.3-11.1)
[2020-04-23 18:53] LABS: VBG HCO3 24 mEq/L (21-27); VBG PCO2 38 mmHg (41-51); VBG PH 7.42 pH Units (7.32-7.42); VBG PO2 118 mmHg (25-50)
[2020-04-23 19:05] LABS: Amorphous Sediment,Urine Few per hpf (None-Few); Bacteria,Urine Few per hpf (None-Few); Bilirubin,Urine Negative (Negative); Blood,Urine Negative (Negative); Clarity,Urine Clear (Clear); Color,Urine Light-Yellow (Yellow); Glucose,Urine (UA) >=1000 mg/dL (Normal); Ketones,Urine Negative (Negative); Leukocyte Esterase,Urine Negative (Negative); Nitrite,Urine Positive (Negative); Protein,Urine Negative (Neg-Trace); RBC,Urine 0-3 per hpf (0-3); Specific Gravity,Urine 1.016 (1.010-1.025); Squamous Epithelial Cell,Urine Few per hpf (None-Few); Urobilinogen,Urine Normal (Normal)
[2020-04-23 19:26] LABS: BUN/Creatinine Ratio 15 (6-26); Blood Urea Nitrogen 15 mg/dL (6-20); Calcium 8.8 mg/dL (8.6-10.3); Carbon Dioxide 23 mEq/L (23-29); Chloride 100 mEq/L (98-107); Glucose 596 mg/dL (70-105); Magnesium 1.5 mg/dL (1.6-2.6); Osmolality,Calculated 302 (280-300); Phosphorous 2.2 mg/dL (2.7-4.5); Potassium 3.7 mEq/L (3.5-5.1); Sodium 132 mEq/L (136-145); Troponin I < 0.03 ng/mL (< 0.04); eGFR For African Americans > 60 (> 60); eGFR For Non-African Americans > 60 (> 60)
[2020-04-23] MEDS ORDERED: Ondansetron ODT 4 MG TAB.RAPDIS SL ONE (20:05)
[2020-04-23] MEDS ORDERED: CefTRIAXone 1,000 MG VIAL IM ONE (20:25)
[2020-04-23] MEDS ORDERED: cefTRIAXone 1,000 MG in Water for inj. (sterile) 10 ML IVP ONE (20:38)
[2020-04-23] MEDS ORDERED: Naloxone 0.4 MG/ML INJ IVP PRN (21:05)
[2020-04-23] MEDS ORDERED: Ondansetron 4 MG/2 ML VIAL IVP PRN (21:05)
[2020-04-23] MEDS ORDERED: *HR* HYDROmorphone (PF) 1 MG/ML SYRINGE IVP ONE (21:29)
[2020-04-23] MEDS ORDERED: Ondansetron 4 MG/2 ML VIAL IVP ONE (21:29)
[2020-04-23] MEDS: 0.9 % Sodium Chloride 1,000 ML IVC SCH ×2 (21:50→22:21)
[2020-04-23] MEDS: Insulin Human Regular 100 UNIT in 0.9 % Sodium Chloride 100 ML IVC SCH ×2 (21:52→22:25)
[2020-04-23 22:12] LABS: Adenovirus Not Detected (Not Detect); Coronavirus 229E Not Detected (Not Detect); Coronavirus HKU1 Not Detected (Not Detect); Coronavirus NL63 Not Detected (Not Detect); Coronavirus OC43 Not Detected (Not Detect)
[2020-04-23 22:13] LABS: Bordetella Pertussis Not Detected (Not Detect); Chlamydophila pneumoniae Not Detected (Not Detect); Human Metapneumovirus Not Detected (Not Detect); Human Rhinovirus/Enterovirus Not Detected (Not Detect); Influenza A Subtype 2009 H1 Not Detected (Not Detect); Influenza B Not Detected (Not Detect); Mycoplasma pneumoniae Not Detected (Not Detect); Parainfluenza Virus 1 Not Detected (Not Detect); Parainfluenza Virus 2 Not Detected (Not Detect); Parainfluenza Virus 3 Not Detected (Not Detect); Parainfluenza Virus 4 Not Detected (Not Detect); Respiratory Syncytial Virus Not Detected (Not Detect)
[2020-04-23] MEDS ORDERED: *HR* Promethazine 25 MG/ML VIAL IVP ONE (22:13)
[2020-04-24] MEDS ORDERED: Dextrose Gel 15 GM/37.5 ML TUBE PO PRN ×2 (00:12)
[2020-04-24] MEDS ORDERED: D5% in Water 1,000 ML IVC PRN (00:12)
[2020-04-24] MEDS: Insulin LISPRO 300 UNITS/3 ML VIAL SQ SCH ×12 (01:14→22:19)
[2020-04-24] MEDS: 0.9 % Sodium Chloride 1,000 ML IVC SCH ×2 (01:14→05:45)
[2020-04-24] MEDS ORDERED: PROMETHAZINE HCL 12.5 MG PO PRN (02:12)
[2020-04-24] MEDS ORDERED: *HR* LORazepam 2 MG/ML VIAL IVP ONE (02:14)
[2020-04-24] MEDS: Insulin DETEMIR 100 UNIT/ML X5UNITS SQ SCH ×2 (02:38→22:24)
[2020-04-24] MEDS: Gabapentin 400 MG CAPSULE PO SCH ×2 (02:38→22:24)
[2020-04-24] MEDS: *HR* Promethazine 25 MG/ML VIAL IVP PRN ×3 (02:50→18:13)
[2020-04-24] MEDS ORDERED: Pantoprazole 40 MG VIAL IVP ONE (03:32)
[2020-04-24] MEDS ORDERED: Isovue-370 500 ML BOTTLE IVP ONE (03:46)
[2020-04-24] MEDS: Morphine Sulfate 2 MG/ML SYRINGE IVP PRN ×4 (04:11→22:25)
[2020-04-24] MEDS: *HR* Dextrose 50 % in Water (Vial) 50 ML VIAL IVP PRN ×2 (04:13→05:16)
[2020-04-24 05:13] LABS: Basophils % 0.5 %; Eosinophils # 0.2 K/mcL (0.0-0.6); Eosinophils % 3.1 %; Hematocrit 31.7 % (35.3-44.9); Hemoglobin 10.5 g/dL (11.5-15.4); Immature Granulocytes % 0.2 % (0-4); Lymphocytes # 1.9 K/mcL (0.6-4.6); Lymphocytes % 28.9 %; Mean Corpuscular HGB Conc 33.1 g/dL (31.6-35.5); Mean Corpuscular Hemoglobin 28.7 pg (28.0-33.3); Mean Corpuscular Volume 86.6 fL (83.0-100.0); Mean Platelet Volume 9.4 fL (9.4-12.4); Monocytes # 0.3 K/mcL (0.0-1.3); Monocytes % 5.3 %; Platelet Count 225 K/mcL (140-400); Red Blood Count 3.66 M/mcL (3.82-4.97); Red Cell Distribution Width 13.2 % (11.5-14.5); White Blood Count 6.4 K/mcL (4.3-11.1)
[2020-04-24 05:34] LABS: Alanine Aminotransferase 23 Units/L (7-52); Albumin 3.3 g/dL (3.5-5.7); Albumin/Globulin Ratio 1.2 (1.1-2.2); Alkaline Phosphatase 128 Units/L (34-104); Aspartate Amino Transferase 12 Units/L (13-39); BUN/Creatinine Ratio 14 (6-26); Bilirubin,Total 0.3 mg/dL (0.3-1.0); Blood Urea Nitrogen 11 mg/dL (6-20); Carbon Dioxide 27 mEq/L (23-29); Chloride 107 mEq/L (98-107); Globulin 2.7 g/dL (2.4-3.5); Glucose 72 mg/dL (70-105); Magnesium 1.6 mg/dL (1.6-2.6); Osmolality,Calculated 286 (280-300); Phosphorous 2.6 mg/dL (2.7-4.5); Potassium 2.8 mEq/L (3.5-5.1); Sodium 139 mEq/L (136-145); eGFR For African Americans > 60 (> 60); eGFR For Non-African Americans > 60 (> 60)
[2020-04-24] MEDS: *HR* Heparin 5,000 UNIT/ML VIAL SQ SCH ×2 (06:57→18:10)
[2020-04-24] MEDS: Cholecalciferol (D-3) 1,000 UNIT (25MCG) TABLET PO SCH (08:20)
[2020-04-24] MEDS: Ammonium Lactate 30 APPL/225 GM BOTTLE TP SCH ×2 (08:20→22:23)
[2020-04-24] MEDS: *HR* LORazepam 1 MG TABLET PO PRN ×2 (12:40→23:26)
[2020-04-24] MEDS ORDERED: GI Cocktail 40 ML EACH PO ONE (16:08)
[2020-04-24] MEDS ORDERED: cefTRIAXone 1,000 MG in 0.9 % Sodium Chloride Mini Bag 100 ML IVPB SCH (22:00)
[2020-04-24] MEDS: QUEtiapine Fumarate 100 MG TABLET PO SCH (22:24)
[2020-04-24] MEDS: Potassium Phosphate 44 MEQ in 0.9 % Sodium Chloride 250 ML IVPB ONE (23:26)
[2020-04-24] MEDS: Calcium Gluconate 1gm/50mL 1 GM/50 ML BAG IVPB SCH (23:26)
[2020-04-25] MEDS: Calcium Gluconate 1gm/50mL 1 GM/50 ML BAG IVPB SCH (00:24)
[2020-04-25] MEDS: *HR* Promethazine 25 MG/ML VIAL IVP PRN ×3 (00:25→22:17)
[2020-04-25] MEDS: Potassium Phosphate 44 MEQ in 0.9 % Sodium Chloride 250 ML IVPB ONE (00:25)
[2020-04-25] MEDS: Insulin LISPRO 300 UNITS/3 ML VIAL SQ SCH ×12 (00:26→22:14)
[2020-04-25] MEDS: *HR* Heparin 5,000 UNIT/ML VIAL SQ SCH ×2 (06:21→17:16)
[2020-04-25 08:04] LABS: Basophils % 0.8 %; Eosinophils # 0.2 K/mcL (0.0-0.6); Eosinophils % 6.2 %; Hematocrit 33.5 % (35.3-44.9); Hemoglobin 11.2 g/dL (11.5-15.4); Immature Granulocytes % 0.3 % (0-4); Lymphocytes # 1.7 K/mcL (0.6-4.6); Lymphocytes % 44.8 %; Mean Corpuscular HGB Conc 33.4 g/dL (31.6-35.5); Mean Corpuscular Hemoglobin 29.4 pg (28.0-33.3); Mean Corpuscular Volume 87.9 fL (83.0-100.0); Mean Platelet Volume 9.4 fL (9.4-12.4); Monocytes # 0.3 K/mcL (0.0-1.3); Monocytes % 7.5 %; Neutrophils # 1.6 K/mcL (1.6-8.9); Platelet Count 222 K/mcL (140-400); Red Blood Count 3.81 M/mcL (3.82-4.97); Red Cell Distribution Width 13.4 % (11.5-14.5); Segmented Neutrophils % 40.4 %; White Blood Count 3.9 K/mcL (4.3-11.1)
[2020-04-25 08:20] LABS: BUN/Creatinine Ratio 12 (6-26); Blood Urea Nitrogen 9 mg/dL (6-20); Calcium 8.9 mg/dL (8.6-10.3); Carbon Dioxide 27 mEq/L (23-29); Chloride 108 mEq/L (98-107); Glucose 145 mg/dL (70-105); Osmolality,Calculated 293 (280-300); Potassium 3.2 mEq/L (3.5-5.1); Sodium 141 mEq/L (136-145); eGFR For African Americans > 60 (> 60); eGFR For Non-African Americans > 60 (> 60)
[2020-04-25] MEDS: Ammonium Lactate 30 APPL/225 GM BOTTLE TP SCH ×2 (08:44→21:16)
[2020-04-25] MEDS: Cholecalciferol (D-3) 1,000 UNIT (25MCG) TABLET PO SCH (08:44)
[2020-04-25] MEDS ORDERED: Lurasidone 20 MG TABLET PO SCH (09:00)
[2020-04-25 09:03] LABS: Magnesium 1.8 mg/dL (1.6-2.6)
[2020-04-25] MEDS ORDERED: Morphine Sulfate 2 MG/ML SYRINGE IVP ONE (10:24)
[2020-04-25] MEDS: Vancomycin 1,250 MG/262.5 ML IV.SOLN IVPB SCH (13:40)
[2020-04-25] MEDS: *HR* LORazepam 1 MG TABLET PO PRN ×2 (13:47→23:44)
[2020-04-25] MEDS: Morphine Sulfate 2 MG/ML SYRINGE IVP PRN ×2 (17:10→21:19)
[2020-04-25] MEDS: Gabapentin 400 MG CAPSULE PO SCH (21:18)
[2020-04-25] MEDS: QUEtiapine Fumarate 100 MG TABLET PO SCH (21:19)
[2020-04-26] MEDS: Insulin DETEMIR 100 UNIT/ML X5UNITS SQ SCH (00:13)
[2020-04-26] MEDS: Insulin LISPRO 300 UNITS/3 ML VIAL SQ SCH ×7 (00:13→12:26)
[2020-04-26] MEDS: Vancomycin 1,250 MG/262.5 ML IV.SOLN IVPB SCH (02:17)
[2020-04-26 04:35] LABS: Basophils % 0.6 %; Eosinophils # 0.3 K/mcL (0.0-0.6); Eosinophils % 6.7 %; Hematocrit 32.1 % (35.3-44.9); Hemoglobin 10.7 g/dL (11.5-15.4); Immature Granulocytes % 0.2 % (0-4); Lymphocytes # 2.1 K/mcL (0.6-4.6); Mean Corpuscular HGB Conc 33.3 g/dL (31.6-35.5); Mean Corpuscular Hemoglobin 29.6 pg (28.0-33.3); Mean Corpuscular Volume 88.7 fL (83.0-100.0); Mean Platelet Volume 9.5 fL (9.4-12.4); Monocytes # 0.3 K/mcL (0.0-1.3); Platelet Count 221 K/mcL (140-400); Red Blood Count 3.62 M/mcL (3.82-4.97); Red Cell Distribution Width 13.4 % (11.5-14.5); Segmented Neutrophils % 42.5 %; White Blood Count 4.8 K/mcL (4.3-11.1)
[2020-04-26 04:55] LABS: BUN/Creatinine Ratio 12 (6-26); Blood Urea Nitrogen 14 mg/dL (6-20); Calcium 8.7 mg/dL (8.6-10.3); Carbon Dioxide 26 mEq/L (23-29); Chloride 107 mEq/L (98-107); Glucose 199 mg/dL (70-105); Magnesium 1.7 mg/dL (1.6-2.6); Osmolality,Calculated 296 (280-300); Potassium 3.1 mEq/L (3.5-5.1); Sodium 140 mEq/L (136-145); eGFR For African Americans > 60 (> 60); eGFR For Non-African Americans 53 (> 60)
[2020-04-26] MEDS: *HR* Heparin 5,000 UNIT/ML VIAL SQ SCH (05:53)
[2020-04-26] MEDS: Morphine Sulfate 2 MG/ML SYRINGE IVP PRN ×2 (05:53→10:12)
[2020-04-26] MEDS ORDERED: Lidocaine -MPF 2% 2 ML VIAL ONE (07:20)
[2020-04-26] MEDS ORDERED: *HR* Propofol 200 MG/20 ML VIAL IVP ONE (07:20)
[2020-04-26] MEDS ORDERED: *HR* Succinylcholine 200 MG/10 ML VIAL IVP ONE (07:33)
[2020-04-26 07:48] VITALS: BP 171/95
[2020-04-26] MEDS: Cholecalciferol (D-3) 1,000 UNIT (25MCG) TABLET PO SCH (09:35)
[2020-04-26] MEDS: Ammonium Lactate 30 APPL/225 GM BOTTLE TP SCH (09:36)
[2020-04-26] MEDS: *HR* Promethazine 25 MG/ML VIAL IVP PRN (09:44)
[2020-04-26] MEDS ORDERED: Magnesium Oxide 400 MG TABLET PO ONE (09:50)
== END 2020-04-26 13:26 | disposition home or self-care (01) ==
LOC: 3ANU 17:31 → EMEROOARM 17:31 → SUATTDRO 23:13 → 3ANU 23:36
PROVIDERS: ADMIT Internal Medicine; ATTEND Internal Medicine
PROC: ENDOEBX (2020-04-26 08:00)

== ENCOUNTER 2020-08-25 07:57 | Observation (INO) ==
[2020-08-25 09:14] LABS: VBG HCO3 24 mEq/L (21-27); VBG PCO2 39 mmHg (41-51); VBG PH 7.39 pH Units (7.32-7.42); VBG PO2 216 mmHg (25-50)
[2020-08-25] MEDS: 0.9 % Sodium Chloride 1,000 ML IVC SCH ×2 (09:31→11:19)
[2020-08-25 09:44] LABS: Basophils # 0.1 K/mcL (0.0-0.2); Basophils % 0.8 %; Eosinophils # 0.2 K/mcL (0.0-0.6); Eosinophils % 2.9 %; Hematocrit 33.9 % (35.3-44.9); Hemoglobin 11.4 g/dL (11.5-15.4); Immature Granulocytes % 0.2 % (0-4); Lymphocytes # 1.4 K/mcL (0.6-4.6); Lymphocytes % 23.3 %; Mean Corpuscular HGB Conc 33.6 g/dL (31.6-35.5); Mean Corpuscular Hemoglobin 29.4 pg (28.0-33.3); Mean Corpuscular Volume 87.4 fL (83.0-100.0); Mean Platelet Volume 10.3 fL (9.4-12.4); Monocytes # 0.2 K/mcL (0.0-1.3); Neutrophils # 4.1 K/mcL (1.6-8.9); Platelet Count 195 K/mcL (140-400); Red Blood Count 3.88 M/mcL (3.82-4.97); Red Cell Distribution Width 13.2 % (11.5-14.5); Segmented Neutrophils % 68.8 %; White Blood Count 5.9 K/mcL (4.3-11.1)
[2020-08-25] MEDS ORDERED: Prochlorperazine 10 MG/2 ML VIAL IVP ONE (10:00)
[2020-08-25 10:03] LABS: Alanine Aminotransferase 36 Units/L (7-52); Albumin 3.7 g/dL (3.5-5.7); Albumin/Globulin Ratio 1.1 (1.1-2.2); Alkaline Phosphatase 153 Units/L (34-104); Aspartate Amino Transferase 15 Units/L (13-39); BUN/Creatinine Ratio 17 (6-26); Bilirubin,Total 0.5 mg/dL (0.3-1.0); Blood Urea Nitrogen 22 mg/dL (6-20); Calcium 8.7 mg/dL (8.6-10.3); Carbon Dioxide 22 mEq/L (23-29); Chloride 96 mEq/L (98-107); Globulin 3.3 g/dL (2.4-3.5); Glucose 739 mg/dL (70-105); Osmolality,Calculated 307 (280-300); Potassium 3.6 mEq/L (3.5-5.1); Sodium 129 mEq/L (136-145); Troponin I < 0.03 ng/mL (< 0.04); eGFR For African Americans 54 (> 60); eGFR For Non-African Americans 44 (> 60)
[2020-08-25] MEDS ORDERED: Insulin Human Regular 10 UNIT in 0.9 % Sodium Chloride 10 ML IV ONE (10:05)
[2020-08-25 10:44] LABS: Adenovirus Not Detected (Not Detect); Bordetella Pertussis Not Detected (Not Detect); Chlamydophila pneumoniae Not Detected (Not Detect); Coronavirus 229E Not Detected (Not Detect); Coronavirus HKU1 Not Detected (Not Detect); Coronavirus NL63 Not Detected (Not Detect); Coronavirus OC43 Not Detected (Not Detect); Human Metapneumovirus Not Detected (Not Detect); Human Rhinovirus/Enterovirus Not Detected (Not Detect); Influenza A Subtype 2009 H1 Not Detected (Not Detect); Influenza B Not Detected (Not Detect); Mycoplasma pneumoniae Not Detected (Not Detect); Parainfluenza Virus 1 Not Detected (Not Detect); Parainfluenza Virus 2 Not Detected (Not Detect); Parainfluenza Virus 3 Not Detected (Not Detect); Parainfluenza Virus 4 Not Detected (Not Detect); Respiratory Syncytial Virus Not Detected (Not Detect); SARS-CoV-2 Not Detected (Not Detect)
[2020-08-25] MEDS ORDERED: 0.9 % Sodium Chloride 1,000 ML IV ONE (11:24)
[2020-08-25] MEDS ORDERED: D5% in 0.45% NACL w KCl 20 MEQ/1,000 ML MLS IVC PRN ×2 (11:27→15:29)
[2020-08-25] MEDS ORDERED: Insulin Regular, Human 100 UNIT/ML IV PRN (11:27)
[2020-08-25] MEDS ORDERED: Acetaminophen 325 MG TABLET PO PRN (11:27)
[2020-08-25] MEDS ORDERED: Naloxone 0.4 MG/ML INJ IVP PRN (11:27)
[2020-08-25] MEDS ORDERED: *HR* Dextrose 50 % in Water (Vial) 50 ML VIAL IVP PRN (11:27)
[2020-08-25] MEDS ORDERED: D5% in 0.45% NACL 1,000 ML IVC PRN (11:27)
[2020-08-25] MEDS ORDERED: 0.9 % Sodium Chloride w KCl 20 MEQ/1,000 ML MLS IVC SCH (11:30)
[2020-08-25] MEDS ORDERED: Prochlorperazine 10 MG/2 ML VIAL IVP PRN (11:32)
[2020-08-25] MEDS: Insulin Human Regular 100 UNIT in 0.9 % Sodium Chloride 100 ML IVC SCH ×2 (11:58→15:46)
[2020-08-25] MEDS ORDERED: *HR* LORazepam 1 MG TABLET PO PRN (12:06)
[2020-08-25 12:19] LABS: C-Reactive Protein 46 mg/L (Less than 10)
[2020-08-25 15:17] LABS: BUN/Creatinine Ratio 16 (6-26); Blood Urea Nitrogen 17 mg/dL (6-20); Carbon Dioxide 19 mEq/L (23-29); Chloride 110 mEq/L (98-107); Glucose 279 mg/dL (70-105); Osmolality,Calculated 298 (280-300); Potassium 3.7 mEq/L (3.5-5.1); Sodium 138 mEq/L (136-145); eGFR For African Americans > 60 (> 60); eGFR For Non-African Americans 56 (> 60)
[2020-08-25] MEDS ORDERED: Insulin Human Regular 100 UNIT in 0.9 % Sodium Chloride 100 ML IVC SCH (15:30)
[2020-08-25] MEDS ORDERED: *HR* Heparin 5,000 UNIT/ML VIAL SQ SCH (18:00)
[2020-08-25 18:09] LABS: Bilirubin,Urine Negative (Negative); Blood,Urine Negative (Negative); Clarity,Urine Turbid (Clear); Color,Urine Light-Yellow (Yellow); Glucose,Urine (UA) >=1000 mg/dL (Normal); Ketones,Urine Negative (Negative); Leukocyte Esterase,Urine Negative (Negative); Mucus,Urine Few per lpf (None-Few); Nitrite,Urine Negative (Negative); PH,Urine 6.5 pH Units (5.0-8.0); Protein,Urine Trace mg/dL (Neg-Trace); RBC,Urine 0-3 per hpf (0-3); Specific Gravity,Urine 1.019 (1.010-1.025); Squamous Epithelial Cell,Urine Few per hpf (None-Few); Urobilinogen,Urine Normal (Normal)
[2020-08-25 18:30] VITALS: BP 136/74
[2020-08-25] MEDS ORDERED: Insulin LISPRO 300 UNITS/3 ML VIAL SUBQ ONE (18:36)
[2020-08-25 18:49] LABS: BUN/Creatinine Ratio 15 (6-26); Blood Urea Nitrogen 15 mg/dL (6-20); Calcium 7.9 mg/dL (8.6-10.3); Carbon Dioxide 20 mEq/L (23-29); Chloride 108 mEq/L (98-107); Glucose 187 mg/dL (70-105); Osmolality,Calculated 290 (280-300); Potassium 3.8 mEq/L (3.5-5.1); Sodium 137 mEq/L (136-145); eGFR For African Americans > 60 (> 60); eGFR For Non-African Americans > 60 (> 60)
[2020-08-25] MEDS ORDERED: Insulin LISPRO 300 UNITS/3 ML VIAL SUBQ SCH (21:00)
[2020-08-26] MEDS ORDERED: Insulin LISPRO 300 UNITS/3 ML VIAL SUBQ SCH (07:30)
[2020-08-26] MEDS ORDERED: Insulin DETEMIR 100 UNIT/ML X5UNITS SUBQ SCH (21:00)
== END 2020-08-25 19:48 | disposition left against medical advice (07) ==
LOC: 2NNU 07:57 → EMEROOARM 07:57 → 2NNU 13:13
PROVIDERS: ADMIT General Practice; ATTEND General Practice

== ENCOUNTER 2020-08-27 21:49 | Inpatient (IN) ==
[2020-08-28 00:26] LABS: Bilirubin,Urine Negative (Negative); Blood,Urine Negative (Negative); Clarity,Urine Clear (Clear); Color,Urine Colorless (Yellow); Glucose,Urine (UA) >=1000 mg/dL (Normal); Ketones,Urine 80 mg/dL (Negative); Leukocyte Esterase,Urine Negative (Negative); Mucus,Urine Few per lpf (None-Few); Nitrite,Urine Negative (Negative); PH,Urine 5.5 pH Units (5.0-8.0); Protein,Urine Negative (Neg-Trace); Specific Gravity,Urine 1.025 (1.010-1.025); Squamous Epithelial Cell,Urine Few per hpf (None-Few); Urobilinogen,Urine Normal (Normal); WBC,Urine 0-3 per hpf (0-3)
[2020-08-28] MEDS ORDERED: 0.9 % Sodium Chloride 1,000 ML IVC ONE ×2 (02:07→04:32)
[2020-08-28 02:34] LABS: VBG HCO3 6 mEq/L (21-27); VBG PCO2 20 mmHg (41-51); VBG PH 7.11 pH Units (7.32-7.42); VBG PO2 106 mmHg (25-50)
[2020-08-28 02:51] LABS: Amphetamine Screen,Urine Negative ng/mL (Cutoff=1000); Barbiturate Screen,Urine Negative ng/mL (Cutoff=200); Benzodiazepines Screen,Urine Negative ng/mL (Cutoff=200); Cannabinoid Screen,Urine Negative ng/mL (Cutoff = 50); Cocaine Screen,Urine Negative ng/mL (Cutoff= 300); Opiate Screen,Urine Negative ng/mL (Cutoff=300); Phencyclidine Screen,Urine Negative ng/mL (Cutoff=25)
[2020-08-28 03:40] LABS: Basophils # 0.1 K/mcL (0.0-0.2); Basophils % 0.5 %; Eosinophils % 0.1 %; Hematocrit 41.4 % (35.3-44.9); Hemoglobin 12.7 g/dL (11.5-15.4); Immature Granulocytes % 0.8 % (0-4); Lymphocytes # 0.7 K/mcL (0.6-4.6); Lymphocytes % 4.7 %; Mean Corpuscular HGB Conc 30.7 g/dL (31.6-35.5); Mean Corpuscular Hemoglobin 30.4 pg (28.0-33.3); Mean Platelet Volume 10.5 fL (9.4-12.4); Monocytes # 0.4 K/mcL (0.0-1.3); Monocytes % 2.9 %; Neutrophils # 12.8 K/mcL (1.6-8.9); Platelet Count 231 K/mcL (140-400); Red Blood Count 4.18 M/mcL (3.82-4.97); Red Cell Distribution Width 13.7 % (11.5-14.5); White Blood Count 14.1 K/mcL (4.3-11.1)
[2020-08-28 05:14] LABS: Alanine Aminotransferase 40 Units/L (7-52); Albumin 3.5 g/dL (3.5-5.7); Alkaline Phosphatase 204 Units/L (34-104); Aspartate Amino Transferase 21 Units/L (13-39); BUN/Creatinine Ratio 16 (6-26); Bilirubin,Total 0.5 mg/dL (0.3-1.0); Blood Urea Nitrogen 30 mg/dL (6-20); Calcium 8.6 mg/dL (8.6-10.3); Carbon Dioxide < 4 mEq/L (23-29); Chloride 95 mEq/L (98-107); Globulin 3.5 g/dL (2.4-3.5); Glucose 1064 mg/dL (70-105); Osmolality,Calculated 326 (280-300); Sodium 128 mEq/L (136-145); eGFR For African Americans 37 (> 60); eGFR For Non-African Americans 30 (> 60)
[2020-08-28] MEDS ORDERED: Insulin LISPRO 300 UNITS/3 ML VIAL SUBQ ONE (05:16)
[2020-08-28] MEDS ORDERED: *HR* Dextrose 50 % in Water (Vial) 50 ML VIAL IVP PRN ×2 (05:17→07:23)
[2020-08-28] MEDS ORDERED: Clindamycin 600 MG/50 ML 600 MG/50 ML IV.SOLN IVPB STA (05:35)
[2020-08-28] MEDS ORDERED: Insulin Regular, Human 100 UNIT/ML IV PRN (07:19)
[2020-08-28] MEDS ORDERED: D5% in 0.45% NACL 1,000 ML IVC PRN (07:23)
[2020-08-28] MEDS ORDERED: Naloxone 0.4 MG/ML INJ IVP PRN (07:24)
[2020-08-28] MEDS ORDERED: Insulin Human Regular 100 UNIT in 0.9 % Sodium Chloride 100 ML IVC SCH ×2 (07:30→08:00)
[2020-08-28] MEDS: Insulin Human Regular 100 UNIT in 0.9 % Sodium Chloride 100 ML IVC SCH ×2 (07:35→13:48)
[2020-08-28 07:55] LABS: ABG PCO2 < 13 mmHg (35-45); ABG PH 7.06 pH Units (7.32-7.45); ABG PO2 120 mmHg (85-104)
[2020-08-28 10:18] LABS: ABG Base Excess -19 mEq/L (-2 to 3); ABG HCO3 7 mEq/L (21-27); ABG Oxygen Saturation 97 % (95-98); ABG PCO2 17 mmHg (35-45); ABG PO2 110 mmHg (85-104); ABG TCO2 7 mEq/L (20-26)
[2020-08-28 10:41] LABS: Calcium 8.8 mg/dL (8.6-10.3); Magnesium 2.3 mg/dL (1.6-2.6); Phosphorous 5.1 mg/dL (2.7-4.5)
[2020-08-28 12:11] LABS: Calcium 8.3 mg/dL (8.6-10.3); Potassium 3.5 mEq/L (3.5-5.1)
[2020-08-28] MEDS: 0.45 % Sodium Chloride w/KCl 20 MEQ/1,000 ML MLS IVC SCH ×2 (13:10→15:20)
[2020-08-28 15:14] LABS: VBG HCO3 14 mEq/L (21-27); VBG PCO2 29 mmHg (41-51); VBG PO2 230 mmHg (25-50)
[2020-08-28 15:23] LABS: Calcium 8.2 mg/dL (8.6-10.3); Potassium 3.5 mEq/L (3.5-5.1)
[2020-08-28] MEDS: D5% in 0.45% NACL w KCl 20 MEQ/1,000 ML MLS IVC PRN ×2 (17:19→21:33)
[2020-08-28] MEDS: *HR* Heparin 5,000 UNIT/ML VIAL SQ SCH (17:26)
[2020-08-28 18:51] LABS: VBG HCO3 17 mEq/L (21-27); VBG PCO2 32 mmHg (41-51); VBG PH 7.32 pH Units (7.32-7.42); VBG PO2 206 mmHg (25-50)
[2020-08-28 19:08] LABS: Calcium 8.3 mg/dL (8.6-10.3); Potassium 3.4 mEq/L (3.5-5.1)
[2020-08-28] MEDS: *HR* Dextrose 50 % in Water (Vial) 50 ML VIAL IVP PRN ×2 (21:51→22:11)
[2020-08-28 22:14] LABS: VBG HCO3 15 mEq/L (21-27); VBG PCO2 29 mmHg (41-51); VBG PH 7.32 pH Units (7.32-7.42); VBG PO2 155 mmHg (25-50)
[2020-08-28 22:34] LABS: Potassium 3.3 mEq/L (3.5-5.1)
[2020-08-29] MEDS: D5% in 0.45% NACL w KCl 20 MEQ/1,000 ML MLS IVC PRN ×2 (02:02→06:35)
[2020-08-29 06:55] LABS: Calcium 8.3 mg/dL (8.6-10.3); Potassium 3.3 mEq/L (3.5-5.1)
[2020-08-29] MEDS: *HR* Heparin 5,000 UNIT/ML VIAL SQ SCH ×3 (07:34→22:35)
[2020-08-29] MEDS ORDERED: *HR* Dextrose 50 % in Water (Vial) 50 ML VIAL IVP PRN (08:37)
[2020-08-29] MEDS ORDERED: D5% in Water 1,000 ML IVC PRN (08:37)
[2020-08-29] MEDS ORDERED: Dextrose Gel 15 GM/37.5 ML TUBE PO PRN ×2 (08:37)
[2020-08-29] MEDS ORDERED: *HR* LORazepam 1 MG TABLET PO PRN (08:39)
[2020-08-29] MEDS: *HR* Dextrose 50 % in Water (Vial) 50 ML VIAL IVP PRN (10:31)
[2020-08-29] MEDS: Insulin DETEMIR 100 UNIT/ML X5UNITS SUBQ SCH (10:31)
[2020-08-29 10:54] LABS: VBG HCO3 16 mEq/L (21-27); VBG PCO2 29 mmHg (41-51); VBG PH 7.35 pH Units (7.32-7.42); VBG PO2 219 mmHg (25-50)
[2020-08-29 10:55] LABS: Thyroid Stimulating Hormone 0.61 mcIU/mL (0.340-5.600)
[2020-08-29 11:09] LABS: BUN/Creatinine Ratio 15 (6-26); Blood Urea Nitrogen 18 mg/dL (6-20); Calcium 7.9 mg/dL (8.6-10.3); Carbon Dioxide 14 mEq/L (23-29); Chloride 117 mEq/L (98-107); Glucose 133 mg/dL (70-105); Osmolality,Calculated 288 (280-300); Potassium 3.3 mEq/L (3.5-5.1); Sodium 137 mEq/L (136-145); eGFR For African Americans > 60 (> 60); eGFR For Non-African Americans 51 (> 60)
[2020-08-29] MEDS: Insulin LISPRO 300 UNITS/3 ML VIAL SUBQ SCH ×3 (11:20→16:26)
[2020-08-29] MEDS: D5% in 0.45% NACL w KCl 20 MEQ/1,000 ML MLS IVC SCH ×2 (11:32→15:17)
[2020-08-29] MEDS: FLUoxetine 20 MG CAPSULE PO SCH (17:32)
[2020-08-29] MEDS: Cholecalciferol (D-3) 1,000 UNIT (25MCG) TABLET PO SCH (17:32)
[2020-08-29] MEDS ORDERED: Gabapentin 300 MG CAPSULE PO SCH (21:00)
[2020-08-29] MEDS ORDERED: QUEtiapine Fumarate 100 MG TABLET PO SCH (21:00)
[2020-08-30 02:14] LABS: Amphetamine Screen,Urine Negative ng/mL (Cutoff=1000); Barbiturate Screen,Urine Negative ng/mL (Cutoff=200); Benzodiazepines Screen,Urine Negative ng/mL (Cutoff=200); Cannabinoid Screen,Urine Negative ng/mL (Cutoff = 50); Cocaine Screen,Urine Negative ng/mL (Cutoff= 300); Opiate Screen,Urine Negative ng/mL (Cutoff=300); Phencyclidine Screen,Urine Negative ng/mL (Cutoff=25)
[2020-08-30 04:18] LABS: ABG Base Excess -8 mEq/L (-2 to 3); ABG HCO3 16 mEq/L (21-27); ABG Oxygen Saturation 97 % (95-98); ABG PCO2 25 mmHg (35-45); ABG PO2 84 mmHg (85-104); ABG TCO2 16 mEq/L (20-26)
[2020-08-30 05:12] VITALS: BP 155/79
[2020-08-30] MEDS: *HR* Heparin 5,000 UNIT/ML VIAL SQ SCH (06:21)
[2020-08-30] MEDS: Insulin LISPRO 300 UNITS/3 ML VIAL SUBQ SCH (07:40)
[2020-08-30] MEDS: Cholecalciferol (D-3) 1,000 UNIT (25MCG) TABLET PO SCH (07:41)
[2020-08-30] MEDS: Insulin DETEMIR 100 UNIT/ML X5UNITS SUBQ SCH (07:41)
[2020-08-30] MEDS: FLUoxetine 20 MG CAPSULE PO SCH (07:41)
== END 2020-08-30 08:53 | disposition left against medical advice (07) ==
LOC: EMEROOARM 21:49 → 2NNU 21:49 → SUATTDRO 08-28 07:58
PROVIDERS: ADMIT Student in an Organized Health Care Education/Training Program; ATTEND Pharmacist

== ENCOUNTER 2021-04-10 00:16 | Observation (INO) ==
[2021-04-10] MEDS ORDERED: 0.9 % Sodium Chloride 1,000 ML IVC ONE ×3 (00:31→02:16)
[2021-04-10] MEDS ORDERED: Insulin Human Regular 5 UNIT in 0.9 % Sodium Chloride 10 ML IV ONE (00:31)
[2021-04-10 01:19] LABS: Basophils % 0.6 %; Eosinophils # 0.2 K/mcL (0.0-0.6); Eosinophils % 4.9 %; Hematocrit 33.7 % (35.3-44.9); Hemoglobin 11.4 g/dL (11.5-15.4); Immature Granulocytes % 0.2 % (0-4); Lymphocytes # 1.7 K/mcL (0.6-4.6); Lymphocytes % 35.9 %; Mean Corpuscular HGB Conc 33.8 g/dL (31.6-35.5); Mean Corpuscular Hemoglobin 29.5 pg (28.0-33.3); Mean Corpuscular Volume 87.3 fL (83.0-100.0); Mean Platelet Volume 10.8 fL (9.4-12.4); Monocytes # 0.3 K/mcL (0.0-1.3); Monocytes % 5.7 %; Neutrophils # 2.5 K/mcL (1.6-8.9); Platelet Count 168 K/mcL (140-400); Red Blood Count 3.86 M/mcL (3.82-4.97); Red Cell Distribution Width 12.6 % (11.5-14.5); Segmented Neutrophils % 52.7 %; White Blood Count 4.7 K/mcL (4.3-11.1)
[2021-04-10 01:46] LABS: Alanine Aminotransferase 14 Units/L (7-52); Albumin 3.9 g/dL (3.5-5.7); Albumin/Globulin Ratio 1.2 (1.1-2.2); Alkaline Phosphatase 128 Units/L (34-104); Aspartate Amino Transferase 18 Units/L (13-39); BUN/Creatinine Ratio 15 (6-26); Bilirubin,Direct 0.1 mg/dL (0.0-0.2); Bilirubin,Indirect 0.4 mg/dL (0.0-1.0); Bilirubin,Total 0.5 mg/dL (0.3-1.0); Blood Urea Nitrogen 29 mg/dL (6-20); Calcium 9.1 mg/dL (8.6-10.3); Carbon Dioxide 23 mEq/L (23-29); Chloride 97 mEq/L (98-107); Globulin 3.3 g/dL (2.4-3.5); Glucose 620 mg/dL (70-105); Lipase 5 Units/L (11-82); Osmolality,Calculated 301 (280-300); Potassium 3.7 mEq/L (3.5-5.1); Sodium 128 mEq/L (136-145); Total Protein 7.2 g/dL (6.4-8.9); eGFR For African Americans 34 (> 60); eGFR For Non-African Americans 28 (> 60)
[2021-04-10] MEDS ORDERED: POTASSIUM CHLORIDE IN 0.9%NACL 40 MEQ/1,000 ML IV.SOLN IV STA (01:54)
[2021-04-10] MEDS ORDERED: *HR* Dextrose 50 % in Water (Vial) 50 ML VIAL IVP PRN ×2 (01:56→07:42)
[2021-04-10] MEDS ORDERED: 0.9 % Sodium Chloride w KCl 40 MEQ/1,000 ML MLS IVC SCH (02:00)
[2021-04-10 05:50] LABS: Ethanol < 10 mg/dL (Less than 10)
[2021-04-10 06:37] LABS: VBG HCO3 21 mEq/L (21-27); VBG PCO2 42 mmHg (41-51); VBG PH 7.31 pH Units (7.32-7.42); VBG PO2 61 mmHg (25-50)
[2021-04-10] MEDS ORDERED: Naloxone 0.4 MG/ML INJ IVP PRN (07:42)
[2021-04-10] MEDS ORDERED: D5% in 0.45% NACL w KCl 20 MEQ/1,000 ML MLS IVC PRN (07:42)
[2021-04-10] MEDS ORDERED: Melatonin 3 MG TABLET PO PRN (07:42)
[2021-04-10] MEDS ORDERED: 0.9 % Sodium Chloride w KCl 20 MEQ/1,000 ML MLS IVC SCH (07:45)
[2021-04-10 09:03] LABS: Bacteria,Urine Few per hpf (None-Few); Bilirubin,Urine Negative (Negative); Blood,Urine Trace (Negative); Clarity,Urine Turbid (Clear); Color,Urine Light-Yellow (Yellow); Glucose,Urine (UA) >=1000 mg/dL (Normal); Ketones,Urine Negative (Negative); Leukocyte Esterase,Urine Small (Negative); Nitrite,Urine Negative (Negative); PH,Urine 5.5 pH Units (5.0-8.0); Protein,Urine Trace mg/dL (Neg-Trace); RBC,Urine 0-3 per hpf (0-3); Specific Gravity,Urine 1.009 (1.010-1.025); Urobilinogen,Urine Normal (Normal)
[2021-04-10] MEDS ORDERED: Gabapentin 400 MG CAPSULE PO SCH (09:30)
[2021-04-10] MEDS: *HR* Promethazine 25 MG/ML VIAL IM PRN ×2 (10:00→21:38)
[2021-04-10] MEDS: Morphine Sulfate 2 MG/ML SYRINGE IVP PRN (10:40)
[2021-04-10 10:53] LABS: Calcium 8.7 mg/dL (8.6-10.3); Potassium 3.8 mEq/L (3.5-5.1)
[2021-04-10] MEDS: Ringers Solution, Lactated 1,000 ML IVC SCH ×2 (11:24→21:40)
[2021-04-10 11:46] LABS: Amphetamine Screen,Urine Negative ng/mL (Cutoff=1000); Barbiturate Screen,Urine Negative ng/mL (Cutoff=200); Benzodiazepines Screen,Urine Negative ng/mL (Cutoff=200); Cannabinoid Screen,Urine Negative ng/mL (Cutoff = 50); Cocaine Screen,Urine Negative ng/mL (Cutoff= 300); Opiate Screen,Urine Positive ng/mL (Cutoff=300); Phencyclidine Screen,Urine Negative ng/mL (Cutoff=25)
[2021-04-10] MEDS: Insulin LISPRO 300 UNITS/3 ML VIAL SUBQ SCH ×2 (11:57→17:17)
[2021-04-10] MEDS: Sennosides/Docusate Sodium TABLET PO SCH ×3 (15:34→20:42)
[2021-04-10] MEDS ORDERED: *HR* LORazepam 1 MG TABLET PO PRN (17:11)
[2021-04-10] MEDS: *HR* Heparin 5,000 UNIT/ML VIAL SQ SCH (17:24)
[2021-04-10] MEDS ORDERED: tiZANidine 4 MG TABLET PO PRN (18:42)
[2021-04-10] MEDS: FLUoxetine 20 MG CAPSULE PO SCH (20:42)
[2021-04-10] MEDS: Gabapentin 400 MG CAPSULE PO SCH (20:42)
[2021-04-10] MEDS ORDERED: QUEtiapine Fumarate 100 MG TABLET PO SCH (21:00)
[2021-04-10] MEDS ORDERED: Insulin LISPRO 300 UNITS/3 ML VIAL SUBQ SCH (21:00)
[2021-04-10] MEDS ORDERED: Insulin DETEMIR 100 UNIT/ML X5UNITS SUBQ SCH (21:00)
[2021-04-10] MEDS ORDERED: Dextrose Gel 15 GM/37.5 ML TUBE PO PRN ×2 (22:55)
[2021-04-10] MEDS ORDERED: D5% in Water 1,000 ML IVC PRN (22:55)
[2021-04-10] MEDS ORDERED: *HR* LORazepam 2 MG/ML VIAL IVP ONE (22:56)
[2021-04-10] MEDS ORDERED: Nitroglycerin 0.4 MG TAB.SUBL SL PRN (23:39)
[2021-04-11 00:25] LABS: Basophils % 0.5 %; Eosinophils # 0.2 K/mcL (0.0-0.6); Eosinophils % 3.9 %; Immature Granulocytes % 1.1 % (0-4); Lymphocytes # 1.6 K/mcL (0.6-4.6); Lymphocytes % 28.3 %; Mean Corpuscular HGB Conc 35.1 g/dL (31.6-35.5); Mean Corpuscular Hemoglobin 30.3 pg (28.0-33.3); Mean Corpuscular Volume 86.2 fL (83.0-100.0); Mean Platelet Volume 10.4 fL (9.4-12.4); Monocytes # 0.3 K/mcL (0.0-1.3); Monocytes % 4.8 %; Neutrophils # 3.5 K/mcL (1.6-8.9); Platelet Count 202 K/mcL (140-400); Red Blood Count 4.29 M/mcL (3.82-4.97); Red Cell Distribution Width 12.5 % (11.5-14.5); Segmented Neutrophils % 61.4 %; White Blood Count 5.7 K/mcL (4.3-11.1)
[2021-04-11] MEDS ORDERED: *HR* HYDROmorphone (PF) 1 MG/ML SYRINGE IVP ONE ×3 (00:33→10:36)
[2021-04-11] MEDS ORDERED: Milk and Molasses Enema 200 ML RC ONE (00:34)
[2021-04-11 00:40] LABS: BUN/Creatinine Ratio 13 (6-26); Blood Urea Nitrogen 17 mg/dL (6-20); Calcium 9.2 mg/dL (8.6-10.3); Carbon Dioxide 20 mEq/L (23-29); Chloride 109 mEq/L (98-107); Glucose 75 mg/dL (70-105); Osmolality,Calculated 286 (280-300); Potassium 3.4 mEq/L (3.5-5.1); Sodium 138 mEq/L (136-145); Troponin I < 0.03 ng/mL (< 0.04); eGFR For African Americans 53 (> 60); eGFR For Non-African Americans 44 (> 60)
[2021-04-11] MEDS ORDERED: Insulin LISPRO 300 UNITS/3 ML VIAL SUBQ ONE (04:55)
[2021-04-11] MEDS: *HR* Heparin 5,000 UNIT/ML VIAL SQ SCH (05:47)
[2021-04-11] MEDS: *HR* Promethazine 25 MG/ML VIAL IM PRN ×2 (05:52→13:15)
[2021-04-11] MEDS: Gabapentin 400 MG CAPSULE PO SCH (08:19)
[2021-04-11] MEDS: Sennosides/Docusate Sodium TABLET PO SCH (08:19)
[2021-04-11] MEDS: FLUoxetine 20 MG CAPSULE PO SCH (08:19)
[2021-04-11] MEDS: Insulin LISPRO 300 UNITS/3 ML VIAL SUBQ SCH ×2 (08:21→11:23)
[2021-04-11] MEDS ORDERED: polyethylene glycoL 3350 17 GM POWD.PACK PO PRN (08:31)
[2021-04-11] MEDS ORDERED: lisinopriL 10 MG TABLET PO SCH (09:00)
[2021-04-11] MEDS: Morphine Sulfate 2 MG/ML SYRINGE IVP PRN (09:00)
[2021-04-11] MEDS: Ringers Solution, Lactated 1,000 ML IVC SCH (10:12)
[2021-04-11] MEDS ORDERED: NON-FORMULARY MEDICATION 1 EACH EACH (Lorazepam [Lorazepam] 2 MG Tablet) PO PRN (10:44)
[2021-04-11] MEDS ORDERED: 0.9 % Sodium Chloride 1,000 ML IVC SCH (10:45)
[2021-04-11] MEDS ORDERED: cefTRIAXone 1,000 MG in Water for inj. (sterile) 10 ML IVP SCH (11:00)
[2021-04-11 11:14] VITALS: BP 136/84; PULSE 87; TEMP 97.7; O2SAT 98
[2021-04-11] MEDS ORDERED: *HR* LORazepam 2 MG/ML VIAL IVP PRN (11:53)
[2021-04-11 12:17] LABS: Magnesium 1.4 mg/dL (1.6-2.6); Potassium 3.3 mEq/L (3.5-5.1)
[2021-04-11] MEDS ORDERED: Potassium Chloride 20 MEQ, Lidocaine 1% 2 ML in 0.9 % Sodium Chloride 250 ML IVPB ONE (14:12)
[2021-04-11] MEDS ORDERED: 0.9 % Sodium Chloride 2,000 ML IVC SCH (14:15)
[2021-04-11] MEDS ORDERED: MetroNIDAZOLE 500 MG/100 ML 500 MG/100 ML BAG IVPB SCH (16:00)
[2021-04-11] MEDS ORDERED: NON-FORMULARY MEDICATION 1 EACH EACH (Insulin Glargine,Hum.Rec.Anlog [Lantus Solostar] 100 SQ SCH (21:00)
[2021-04-12] MEDS ORDERED: Cholecalciferol (D-3) 1,000 UNIT (25MCG) TABLET PO SCH (09:00)
== END 2021-04-11 15:29 | disposition left against medical advice (07) ==
LOC: 2NNU 00:16 → EMEROOARM 00:16 → 2NNU 08:56 → 3BNU 16:44
PROVIDERS: ADMIT Internal Medicine; ATTEND Internal Medicine

== ENCOUNTER 2021-10-10 15:19 | Inpatient (IN) ==
[2021-10-10] MEDS ORDERED: 0.9 % Sodium Chloride 1,000 ML IVC ONE ×2 (16:13→17:49)
[2021-10-10 17:03] LABS: VBG HCO3 25 mEq/L (21-27); VBG PCO2 44 mmHg (41-51); VBG PH 7.36 pH Units (7.32-7.42); VBG PO2 47 mmHg (25-50)
[2021-10-10 17:04] LABS: Basophils % 0.5 %; Eosinophils % 0.7 %; Hematocrit 44.1 % (35.3-44.9); Hemoglobin 15.1 g/dL (11.5-15.4); Immature Granulocytes % 0.2 % (0-4); Lymphocytes % 17.2 %; Mean Corpuscular HGB Conc 34.2 g/dL (31.6-35.5); Mean Corpuscular Hemoglobin 30.2 pg (28.0-33.3); Mean Corpuscular Volume 88.2 fL (83.0-100.0); Mean Platelet Volume 9.6 fL (9.4-12.4); Monocytes # 0.1 K/mcL (0.0-1.3); Monocytes % 2.4 %; Neutrophils # 4.7 K/mcL (1.6-8.9); Platelet Count 264 K/mcL (140-400); Red Cell Distribution Width 12.5 % (11.5-14.5); White Blood Count 5.9 K/mcL (4.3-11.1)
[2021-10-10] MEDS ORDERED: Metoclopramide 10 MG/2 ML VIAL IVP ONE (17:26)
[2021-10-10 17:40] LABS: BUN/Creatinine Ratio 20 (6-26); Blood Urea Nitrogen 24 mg/dL (6-20); Calcium 9.2 mg/dL (8.6-10.3); Carbon Dioxide 23 mEq/L (23-29); Chloride 97 mEq/L (98-107); Osmolality,Calculated 297 (280-300); Sodium 128 mEq/L (136-145); Troponin I < 0.03 ng/mL (< 0.04); eGFR For African Americans > 60 (> 60); eGFR For Non-African Americans 50 (> 60)
[2021-10-10] MEDS ORDERED: Insulin Regular, Human 100 UNIT/ML IV PRN ×2 (17:41)
[2021-10-10 17:45] LABS: Bilirubin,Urine Negative (Negative); Blood,Urine Negative (Negative); Clarity,Urine Clear (Clear); Color,Urine Colorless (Yellow); Glucose,Urine (UA) >=1000 mg/dL (Normal); Ketones,Urine Negative (Negative); Leukocyte Esterase,Urine Negative (Negative); Nitrite,Urine Negative (Negative); Protein,Urine Negative (Neg-Trace); RBC,Urine 0-3 per hpf (0-3); Specific Gravity,Urine 1.015 (1.010-1.025); Squamous Epithelial Cell,Urine Few per hpf (None-Few); Urobilinogen,Urine Normal (Normal); WBC,Urine 0-3 per hpf (0-3)
[2021-10-10] MEDS ORDERED: Insulin Human Regular 10 UNIT in 0.9 % Sodium Chloride 10 ML IV ONE (17:47)
[2021-10-10 19:56] LABS: Influenza A PCR Negative (Negative); Influenza B PCR Negative (Negative); Resp. Syncytial Virus PCR Negative (Negative)
[2021-10-10 19:58] LABS: SARS-CoV-2 by PCR (In House) Negative (Negative)
[2021-10-10] MEDS ORDERED: Naloxone 0.4 MG/ML INJ IVP PRN (20:39)
[2021-10-10] MEDS ORDERED: Calcium Gluconate 1gm/50mL 1 GM/50 ML BAG IVPB SCH (21:00)
[2021-10-10] MEDS ORDERED: Dextrose Gel 15 GM/37.5 ML TUBE PO PRN ×2 (21:02)
[2021-10-10] MEDS ORDERED: D5% in Water 1,000 ML IVC PRN (21:02)
[2021-10-10] MEDS ORDERED: *HR* Dextrose 50 % in Water (Syg) 50 ML SYRINGE IVP PRN (21:02)
[2021-10-10] MEDS ORDERED: tiZANidine 4 MG TABLET PO PRN (21:07)
[2021-10-10 21:23] LABS: Alanine Aminotransferase 10 Units/L (7-52); Albumin 3.8 g/dL (3.5-5.7); Albumin/Globulin Ratio 1.2 (1.1-2.2); Alkaline Phosphatase 106 Units/L (34-104); Aspartate Amino Transferase 11 Units/L (13-39); BUN/Creatinine Ratio 20 (6-26); Bilirubin,Direct 0.1 mg/dL (0.0-0.2); Bilirubin,Indirect 0.5 mg/dL (0.0-1.0); Bilirubin,Total 0.6 mg/dL (0.3-1.0); Blood Urea Nitrogen 22 mg/dL (6-20); Calcium 8.8 mg/dL (8.6-10.3); Carbon Dioxide 25 mEq/L (23-29); Chloride 102 mEq/L (98-107); Globulin 3.1 g/dL (2.4-3.5); Glucose 384 mg/dL (70-105); Magnesium 1.5 mg/dL (1.6-2.6); Osmolality,Calculated 297 (280-300); Phosphorous 1.6 mg/dL (2.7-4.5); Potassium 4.8 mEq/L (3.5-5.1); Sodium 134 mEq/L (136-145); Total Protein 6.9 g/dL (6.4-8.9); eGFR For African Americans > 60 (> 60); eGFR For Non-African Americans 55 (> 60)
[2021-10-10] MEDS ORDERED: 0.9 % Sodium Chloride 1,000 ML ONE (22:46)
[2021-10-10] MEDS: Prochlorperazine 10 MG/2 ML VIAL IM PRN (22:59)
[2021-10-10] MEDS ORDERED: Isovue-370 500 ML BOTTLE IVP ONE (23:11)
[2021-10-10] MEDS ORDERED: 0.9 % Sodium Chloride 1,000 ML IVC SCH (23:15)
[2021-10-10 23:58] LABS: Glucose 576 mg/dL (70-105)
[2021-10-11] MEDS: Gabapentin 400 MG CAPSULE PO SCH ×3 (00:01→21:40)
[2021-10-11] MEDS: QUEtiapine Fumarate 100 MG TABLET PO SCH ×2 (00:02→21:40)
[2021-10-11] MEDS: *HR* LORazepam 1 MG TABLET PO PRN ×2 (00:16→12:22)
[2021-10-11] MEDS: Insulin DETEMIR 100 UNIT/ML X5UNITS SUBQ SCH ×3 (00:19→21:40)
[2021-10-11] MEDS: Insulin LISPRO 300 UNITS/3 ML VIAL SUBQ SCH ×5 (00:20→21:39)
[2021-10-11 00:52] LABS: BUN/Creatinine Ratio 24 (6-26); Blood Urea Nitrogen 22 mg/dL (6-20); Calcium 8.9 mg/dL (8.6-10.3); Carbon Dioxide 23 mEq/L (23-29); Chloride 105 mEq/L (98-107); Glucose 255 mg/dL (70-105); Magnesium 1.8 mg/dL (1.6-2.6); Osmolality,Calculated 292 (280-300); Phosphorous 2.4 mg/dL (2.7-4.5); Potassium 4.3 mEq/L (3.5-5.1); Sodium 135 mEq/L (136-145); eGFR For African Americans > 60 (> 60); eGFR For Non-African Americans > 60 (> 60)
[2021-10-11] MEDS: *HR* Dextrose 50 % in Water (Syg) 50 ML SYRINGE IVP PRN (03:49)
[2021-10-11] MEDS: *HR* Heparin 5,000 UNIT/ML VIAL SQ SCH ×2 (06:11→18:41)
[2021-10-11] MEDS: Prochlorperazine 10 MG/2 ML VIAL IM PRN (09:09)
[2021-10-11] MEDS: lisinopriL 10 MG TABLET PO SCH (09:16)
[2021-10-11 11:34] LABS: BUN/Creatinine Ratio 23 (6-26); Blood Urea Nitrogen 20 mg/dL (6-20); Carbon Dioxide 23 mEq/L (23-29); Chloride 103 mEq/L (98-107); Glucose 207 mg/dL (70-105); Osmolality,Calculated 285 (280-300); Potassium 4.3 mEq/L (3.5-5.1); Sodium 133 mEq/L (136-145); eGFR For African Americans > 60 (> 60); eGFR For Non-African Americans > 60 (> 60)
[2021-10-11] MEDS: *HR* Promethazine 25 MG/ML VIAL IM PRN (15:37)
[2021-10-11] MEDS: Pantoprazole 40 MG VIAL IVP SCH (18:44)
[2021-10-11] MEDS: 0.9 % Sodium Chloride 1,000 ML IVC SCH (22:42)
[2021-10-12] MEDS: *HR* Promethazine 25 MG/ML VIAL IM PRN ×2 (00:28→09:18)
[2021-10-12] MEDS: *HR* Heparin 5,000 UNIT/ML VIAL SQ SCH ×2 (06:06→18:17)
[2021-10-12] MEDS: Pantoprazole 40 MG VIAL IVP SCH ×2 (06:07→18:41)
[2021-10-12] MEDS: Insulin LISPRO 300 UNITS/3 ML VIAL SUBQ SCH ×4 (06:12→18:41)
[2021-10-12] MEDS ORDERED: Insulin LISPRO 300 UNITS/3 ML VIAL SUBQ SCH (07:37)
[2021-10-12] MEDS ORDERED: Insulin LISPRO 300 UNITS/3 ML VIAL SUBQ STA (07:40)
[2021-10-12] MEDS ORDERED: 0.9 % Sodium Chloride 1,000 ML IV ONE (08:10)
[2021-10-12 09:16] LABS: Basophils % 0.3 %; Eosinophils # 0.1 K/mcL (0.0-0.6); Hematocrit 34.5 % (35.3-44.9); Immature Granulocytes % 0.3 % (0-4); Lymphocytes # 0.6 K/mcL (0.6-4.6); Lymphocytes % 4.8 %; Mean Corpuscular HGB Conc 33.6 g/dL (31.6-35.5); Mean Corpuscular Hemoglobin 30.6 pg (28.0-33.3); Mean Platelet Volume 9.5 fL (9.4-12.4); Monocytes # 0.1 K/mcL (0.0-1.3); Monocytes % 0.9 %; Neutrophils # 10.9 K/mcL (1.6-8.9); Platelet Count 220 K/mcL (140-400); Red Blood Count 3.79 M/mcL (3.82-4.97); Red Cell Distribution Width 12.7 % (11.5-14.5); Segmented Neutrophils % 92.7 %
[2021-10-12 09:18] LABS: Hemoglobin 11.6 g/dL (11.5-15.4); White Blood Count 11.8 K/mcL (4.3-11.1)
[2021-10-12 09:35] LABS: Calcium 7.7 mg/dL (8.6-10.3); Magnesium 1.3 mg/dL (1.6-2.6); Phosphorous 3.7 mg/dL (2.7-4.5); Potassium 4.2 mEq/L (3.5-5.1)
[2021-10-12] MEDS: Insulin DETEMIR 100 UNIT/ML X5UNITS SUBQ SCH (11:09)
[2021-10-12] MEDS: lisinopriL 10 MG TABLET PO SCH (11:10)
[2021-10-12] MEDS: Gabapentin 400 MG CAPSULE PO SCH ×2 (11:10→22:36)
[2021-10-12 14:48] LABS: Bacteria,Urine Few per hpf (None-Few); Bilirubin,Urine Negative (Negative); Blood,Urine Trace (Negative); Clarity,Urine Clear (Clear); Color,Urine Light-Yellow (Yellow); Glucose,Urine (UA) >=1000 mg/dL (Normal); Hyaline Casts,Urine Few per lpf (None Seen); Ketones,Urine Negative (Negative); Leukocyte Esterase,Urine Negative (Negative); Mucus,Urine Few per lpf (None-Few); Nitrite,Urine Negative (Negative); Protein,Urine 30 mg/dL (Neg-Trace); Specific Gravity,Urine 1.019 (1.010-1.025); Squamous Epithelial Cell,Urine Few per hpf (None-Few); Urobilinogen,Urine Normal (Normal)
[2021-10-12 15:09] LABS: Sodium, Urine 36.2 mEq/L
[2021-10-12] MEDS ORDERED: Morphine Sulfate 2 MG/ML SYRINGE IVP ONE (15:26)
[2021-10-12] MEDS: 0.9 % Sodium Chloride 1,000 ML IVC SCH (15:30)
[2021-10-12 15:40] LABS: Calcium 8.1 mg/dL (8.6-10.3); Potassium 4.3 mEq/L (3.5-5.1)
[2021-10-12] MEDS: QUEtiapine Fumarate 100 MG TABLET PO SCH (22:35)
[2021-10-12] MEDS: *HR* LORazepam 1 MG TABLET PO PRN (22:39)
[2021-10-13] MEDS: Insulin LISPRO 300 UNITS/3 ML VIAL SUBQ SCH ×5 (03:14→20:56)
[2021-10-13 03:15] LABS: Basophils % 0.4 %; Eosinophils # 0.2 K/mcL (0.0-0.6); Eosinophils % 3.7 %; Hematocrit 31.9 % (35.3-44.9); Hemoglobin 10.6 g/dL (11.5-15.4); Immature Granulocytes % 0.6 % (0-4); Lymphocytes # 1.1 K/mcL (0.6-4.6); Lymphocytes % 24.1 %; Mean Corpuscular HGB Conc 33.2 g/dL (31.6-35.5); Mean Corpuscular Hemoglobin 29.9 pg (28.0-33.3); Mean Corpuscular Volume 90.1 fL (83.0-100.0); Mean Platelet Volume 9.9 fL (9.4-12.4); Monocytes # 0.3 K/mcL (0.0-1.3); Monocytes % 5.4 %; Platelet Count 156 K/mcL (140-400); Red Blood Count 3.54 M/mcL (3.82-4.97); Red Cell Distribution Width 12.7 % (11.5-14.5); Segmented Neutrophils % 65.8 %
[2021-10-13] MEDS: Insulin DETEMIR 100 UNIT/ML X5UNITS SUBQ SCH ×3 (03:15→20:53)
[2021-10-13 03:22] LABS: White Blood Count 4.6 K/mcL (4.3-11.1)
[2021-10-13 03:25] LABS: Calcium 8.1 mg/dL (8.6-10.3); Magnesium 1.7 mg/dL (1.6-2.6)
[2021-10-13] MEDS: *HR* Heparin 5,000 UNIT/ML VIAL SQ SCH ×2 (04:29→17:16)
[2021-10-13] MEDS: Pantoprazole 40 MG VIAL IVP SCH ×2 (04:29→17:16)
[2021-10-13] MEDS: *HR* Dextrose 50 % in Water (Syg) 50 ML SYRINGE IVP PRN (04:47)
[2021-10-13] MEDS: Gabapentin 400 MG CAPSULE PO SCH ×2 (08:52→20:53)
[2021-10-13] MEDS: lisinopriL 10 MG TABLET PO SCH (08:52)
[2021-10-13] MEDS: *HR* LORazepam 1 MG TABLET PO PRN (08:54)
[2021-10-13] MEDS: *HR* Promethazine 25 MG/ML VIAL IM PRN ×2 (10:22→20:53)
[2021-10-13] MEDS: 0.9 % Sodium Chloride 1,000 ML IVC SCH ×2 (14:12→20:52)
[2021-10-13] MEDS: Melatonin 3 MG TABLET PO PRN (20:53)
[2021-10-13] MEDS: QUEtiapine Fumarate 100 MG TABLET PO SCH (20:55)
[2021-10-13] MEDS ORDERED: Insulin Human Regular 5 UNIT in 0.9 % Sodium Chloride 10 ML IV ONE (23:44)
[2021-10-14] MEDS: *HR* Heparin 5,000 UNIT/ML VIAL SQ SCH ×2 (05:37→06:00)
[2021-10-14] MEDS: Insulin LISPRO 300 UNITS/3 ML VIAL SUBQ SCH ×4 (05:37→20:30)
[2021-10-14] MEDS: Pantoprazole 40 MG VIAL IVP SCH ×2 (05:38→18:15)
[2021-10-14 06:31] LABS: Basophils % 0.5 %; Eosinophils # 0.1 K/mcL (0.0-0.6); Eosinophils % 1.4 %; Hematocrit 30.5 % (35.3-44.9); Hemoglobin 10.3 g/dL (11.5-15.4); Immature Granulocytes % 0.5 % (0-4); Lymphocytes # 0.6 K/mcL (0.6-4.6); Lymphocytes % 14.6 %; Mean Corpuscular HGB Conc 33.8 g/dL (31.6-35.5); Mean Corpuscular Hemoglobin 30.6 pg (28.0-33.3); Mean Corpuscular Volume 90.5 fL (83.0-100.0); Mean Platelet Volume 9.6 fL (9.4-12.4); Monocytes # 0.2 K/mcL (0.0-1.3); Monocytes % 4.2 %; Neutrophils # 3.4 K/mcL (1.6-8.9); Platelet Count 129 K/mcL (140-400); Red Blood Count 3.37 M/mcL (3.82-4.97); Red Cell Distribution Width 12.3 % (11.5-14.5); Segmented Neutrophils % 78.8 %; White Blood Count 4.3 K/mcL (4.3-11.1)
[2021-10-14 06:46] LABS: Calcium 8.3 mg/dL (8.6-10.3); Potassium 4.9 mEq/L (3.5-5.1)
[2021-10-14 09:27] LABS: Uric Acid 4.7 mg/dL (2.3-7.6)
[2021-10-14] MEDS: Gabapentin 400 MG CAPSULE PO SCH ×2 (09:43→20:26)
[2021-10-14] MEDS: Insulin DETEMIR 100 UNIT/ML X5UNITS SUBQ SCH ×2 (09:43→20:26)
[2021-10-14] MEDS: 0.9 % Sodium Chloride 1,000 ML IVC SCH ×3 (10:01→23:16)
[2021-10-14] MEDS: Apixaban 5 MG TABLET PO SCH ×2 (10:05→20:26)
[2021-10-14] MEDS: *HR* LORazepam 1 MG TABLET PO PRN ×2 (10:05→23:15)
[2021-10-14] MEDS: *HR* Promethazine 25 MG/ML VIAL IM PRN (18:13)
[2021-10-14] MEDS: QUEtiapine Fumarate 100 MG TABLET PO SCH (20:26)
[2021-10-15] MEDS: Insulin LISPRO 300 UNITS/3 ML VIAL SUBQ SCH ×6 (00:21→16:49)
[2021-10-15 03:40] LABS: Basophils % 0.3 %; Eosinophils # 0.1 K/mcL (0.0-0.6); Eosinophils % 1.4 %; Hematocrit 29.7 % (35.3-44.9); Hemoglobin 10.4 g/dL (11.5-15.4); Immature Granulocytes % 0.3 % (0-4); Lymphocytes # 0.8 K/mcL (0.6-4.6); Lymphocytes % 11.9 %; Mean Corpuscular Hemoglobin 30.7 pg (28.0-33.3); Mean Corpuscular Volume 87.6 fL (83.0-100.0); Mean Platelet Volume 9.6 fL (9.4-12.4); Monocytes # 0.4 K/mcL (0.0-1.3); Monocytes % 5.9 %; Platelet Count 155 K/mcL (140-400); Red Blood Count 3.39 M/mcL (3.82-4.97); Red Cell Distribution Width 12.1 % (11.5-14.5); Segmented Neutrophils % 80.2 %; White Blood Count 6.3 K/mcL (4.3-11.1)
[2021-10-15 03:44] LABS: Neutrophils # 5.1 K/mcL (1.6-8.9)
[2021-10-15 04:01] LABS: Calcium 8.2 mg/dL (8.6-10.3)
[2021-10-15 04:10] LABS: Platelet Estimate Normal (Normal)
[2021-10-15] MEDS: Pantoprazole 40 MG VIAL IVP SCH ×2 (06:22→16:49)
[2021-10-15] MEDS: Insulin DETEMIR 100 UNIT/ML X5UNITS SUBQ SCH ×2 (08:54→22:39)
[2021-10-15] MEDS: Apixaban 5 MG TABLET PO SCH ×2 (08:55→22:41)
[2021-10-15] MEDS: Gabapentin 400 MG CAPSULE PO SCH ×2 (08:55→22:40)
[2021-10-15] MEDS: 0.9 % Sodium Chloride 1,000 ML IVC SCH ×3 (09:04→23:15)
[2021-10-15] MEDS: *HR* LORazepam 1 MG TABLET PO PRN ×2 (09:04→22:41)
[2021-10-15 11:27] LABS: Protein/Creatinine Ratio,Urine 0.28 mg/mg (0.00-0.20)
[2021-10-15] MEDS: QUEtiapine Fumarate 100 MG TABLET PO SCH (22:40)
[2021-10-15] MEDS: Melatonin 3 MG TABLET PO PRN (22:41)
[2021-10-16 03:32] LABS: Basophils % 0.3 %; Eosinophils # 0.1 K/mcL (0.0-0.6); Eosinophils % 1.4 %; Hemoglobin 9.2 g/dL (11.5-15.4); Immature Granulocytes % 0.3 % (0-4); Lymphocytes # 1.3 K/mcL (0.6-4.6); Mean Corpuscular HGB Conc 32.9 g/dL (31.6-35.5); Mean Corpuscular Hemoglobin 30.2 pg (28.0-33.3); Mean Corpuscular Volume 91.8 fL (83.0-100.0); Mean Platelet Volume 9.9 fL (9.4-12.4); Monocytes # 0.5 K/mcL (0.0-1.3); Monocytes % 9.3 %; Neutrophils # 3.8 K/mcL (1.6-8.9); Platelet Count 123 K/mcL (140-400); Red Blood Count 3.05 M/mcL (3.82-4.97); Red Cell Distribution Width 12.4 % (11.5-14.5); Segmented Neutrophils % 66.7 %; White Blood Count 5.7 K/mcL (4.3-11.1)
[2021-10-16 03:44] LABS: Calcium 7.8 mg/dL (8.6-10.3); Potassium 4.1 mEq/L (3.5-5.1)
[2021-10-16] MEDS: Insulin LISPRO 300 UNITS/3 ML VIAL SUBQ SCH ×4 (05:47→18:07)
[2021-10-16] MEDS: Pantoprazole 40 MG VIAL IVP SCH ×2 (07:41→18:07)
[2021-10-16] MEDS: Apixaban 5 MG TABLET PO SCH (08:46)
[2021-10-16] MEDS: Gabapentin 400 MG CAPSULE PO SCH ×2 (08:46→18:09)
[2021-10-16] MEDS: Insulin DETEMIR 100 UNIT/ML X5UNITS SUBQ SCH (09:00)
[2021-10-16] MEDS: *HR* LORazepam 1 MG TABLET PO PRN (12:50)
[2021-10-16] MEDS: 0.9 % Sodium Chloride 1,000 ML IVC SCH (15:05)
[2021-10-16 18:18] LABS: ABG Base Excess -5 mEq/L (-2 to 3); ABG HCO3 19 mEq/L (21-27); ABG Oxygen Saturation 95 % (95-98); ABG PCO2 31 mmHg (35-45); ABG PH 7.39 pH Units (7.32-7.45); ABG PO2 76 mmHg (85-104); ABG TCO2 20 mEq/L (20-26)
[2021-10-17] MEDS: Melatonin 3 MG TABLET PO PRN (01:08)
[2021-10-17] MEDS: QUEtiapine Fumarate 100 MG TABLET PO SCH (01:08)
[2021-10-17] MEDS: Apixaban 5 MG TABLET PO SCH ×2 (01:09→10:00)
[2021-10-17] MEDS: Insulin DETEMIR 100 UNIT/ML X5UNITS SUBQ SCH ×2 (01:09→10:00)
[2021-10-17] MEDS: 0.9 % Sodium Chloride 1,000 ML IVC SCH ×3 (01:09→10:00)
[2021-10-17] MEDS: Insulin LISPRO 300 UNITS/3 ML VIAL SUBQ SCH ×3 (01:09→05:26)
[2021-10-17] MEDS: Pantoprazole 40 MG VIAL IVP SCH (06:21)
[2021-10-17 08:48] LABS: Basophils % 0.3 %; Eosinophils # 0.2 K/mcL (0.0-0.6); Eosinophils % 2.5 %; Hematocrit 25.7 % (35.3-44.9); Immature Granulocytes % 0.3 % (0-4); Lymphocytes # 1.4 K/mcL (0.6-4.6); Lymphocytes % 22.9 %; Mean Corpuscular Hemoglobin 30.1 pg (28.0-33.3); Mean Platelet Volume 10.1 fL (9.4-12.4); Monocytes # 0.4 K/mcL (0.0-1.3); Monocytes % 6.6 %; Neutrophils # 4.1 K/mcL (1.6-8.9); Platelet Count 150 K/mcL (140-400); Red Blood Count 2.99 M/mcL (3.82-4.97); Red Cell Distribution Width 12.1 % (11.5-14.5); Segmented Neutrophils % 67.4 %; White Blood Count 6.1 K/mcL (4.3-11.1)
[2021-10-17 09:07] LABS: Calcium 7.7 mg/dL (8.6-10.3); Potassium 3.6 mEq/L (3.5-5.1)
[2021-10-17 11:17] VITALS: BP 161/77; PULSE 83; TEMP 98.6; O2SAT 95
== END 2021-10-17 11:44 | disposition home or self-care (01) | DRG 420 ==
LOC: 3NENU 15:19 → EMEROOARM 15:19 → SUATTDRO 21:00 → 3NENU 21:40
PROVIDERS: ADMIT Student in an Organized Health Care Education/Training Program; ATTEND Family Medicine

== ENCOUNTER 2021-10-28 20:10 | Observation (INO) ==
[2021-10-28] MEDS ORDERED: 0.9 % Sodium Chloride 2,000 ML IV ONE (22:30)
[2021-10-28] MEDS ORDERED: Isovue-370 500 ML BOTTLE IVP ONE (22:47)
[2021-10-28 23:18] LABS: Basophils % 0.5 %; Eosinophils # 0.1 K/mcL (0.0-0.6); Eosinophils % 1.2 %; Hematocrit 29.2 % (35.3-44.9); Hemoglobin 9.2 g/dL (11.5-15.4); Immature Granulocytes % 0.3 % (0-4); Lymphocytes % 16.5 %; Mean Corpuscular HGB Conc 31.5 g/dL (31.6-35.5); Mean Corpuscular Hemoglobin 29.4 pg (28.0-33.3); Mean Corpuscular Volume 93.3 fL (83.0-100.0); Mean Platelet Volume 9.7 fL (9.4-12.4); Monocytes # 0.3 K/mcL (0.0-1.3); Monocytes % 4.3 %; Neutrophils # 4.5 K/mcL (1.6-8.9); Platelet Count 265 K/mcL (140-400); Red Blood Count 3.13 M/mcL (3.82-4.97); Segmented Neutrophils % 77.2 %; White Blood Count 5.9 K/mcL (4.3-11.1)
[2021-10-28 23:19] LABS: VBG HCO3 25 mEq/L (21-27); VBG PCO2 46 mmHg (41-51); VBG PH 7.33 pH Units (7.32-7.42); VBG PO2 120 mmHg (25-50)
[2021-10-28 23:52] LABS: Influenza A PCR Negative (Negative); Influenza B PCR Negative (Negative); Resp. Syncytial Virus PCR Negative (Negative)
[2021-10-28 23:53] LABS: SARS-CoV-2 by PCR (In House) Negative (Negative)
[2021-10-28 23:53] LABS: Albumin 3.3 g/dL (3.5-5.7); Albumin/Globulin Ratio 0.9 (1.1-2.2); Bilirubin,Direct 0.2 mg/dL (0.0-0.2); Bilirubin,Indirect 0.1 mg/dL (0.0-1.0); Bilirubin,Total 0.3 mg/dL (0.3-1.0); Calcium 8.1 mg/dL (8.6-10.3); Globulin 3.8 g/dL (2.4-3.5); Magnesium 1.4 mg/dL (1.6-2.6); Phosphorous 4.2 mg/dL (2.7-4.5); Potassium 3.7 mEq/L (3.5-5.1); Total Protein 7.1 g/dL (6.4-8.9)
[2021-10-29] MEDS ORDERED: Insulin Regular, Human 100 UNIT/ML IV PRN (00:02)
[2021-10-29] MEDS ORDERED: Insulin Regular, Human 100 UNIT/ML IV ONE (00:02)
[2021-10-29] MEDS ORDERED: *HR* Dextrose 50 % in Water (Syg) 50 ML SYRINGE IVP PRN ×2 (00:02→15:11)
[2021-10-29 00:32] LABS: Bilirubin,Urine Negative (Negative); Blood,Urine Negative (Negative); Clarity,Urine Clear (Clear); Color,Urine Colorless (Yellow); Glucose,Urine (UA) >=1000 mg/dL (Normal); Ketones,Urine Negative (Negative); Leukocyte Esterase,Urine Negative (Negative); Nitrite,Urine Negative (Negative); PH,Urine 6.5 pH Units (5.0-8.0); Protein,Urine Trace mg/dL (Neg-Trace); Specific Gravity,Urine 1.023 (1.010-1.025); Squamous Epithelial Cell,Urine Few per hpf (None-Few); Urobilinogen,Urine Normal (Normal); WBC,Urine 0-3 per hpf (0-3)
[2021-10-29] MEDS: 0.9 % Sodium Chloride w KCl 20 MEQ/1,000 ML MLS IVC SCH ×11 (00:59→15:03)
[2021-10-29] MEDS ORDERED: Insulin LISPRO 300 UNITS/3 ML VIAL SUBQ PRN (02:18)
[2021-10-29] MEDS ORDERED: D5% in 0.45% NACL 1,000 ML IVC PRN (02:18)
[2021-10-29] MEDS ORDERED: 0.9 % Sodium Chloride 1,000 ML IVC SCH (02:30)
[2021-10-29 02:33] LABS: Estimated Average Glucose 229 mg/dl; Hemoglobin A1C 9.6 %
[2021-10-29 04:32] LABS: Amphetamine Screen,Urine Negative ng/mL (Cutoff=1000); Barbiturate Screen,Urine Negative ng/mL (Cutoff=200); Benzodiazepines Screen,Urine Negative ng/mL (Cutoff=200); Cannabinoid Screen,Urine Negative ng/mL (Cutoff = 50); Cocaine Screen,Urine Negative ng/mL (Cutoff= 300); Opiate Screen,Urine Negative ng/mL (Cutoff=300); Phencyclidine Screen,Urine Negative ng/mL (Cutoff=25)
[2021-10-29 05:38] LABS: VBG HCO3 21 mEq/L (21-27); VBG PCO2 38 mmHg (41-51); VBG PH 7.36 pH Units (7.32-7.42); VBG PO2 110 mmHg (25-50)
[2021-10-29 05:46] LABS: Calcium 7.7 mg/dL (8.6-10.3); Iron 45 mcg/dL (50-170); Magnesium 1.3 mg/dL (1.6-2.6); Potassium 3.2 mEq/L (3.5-5.1)
[2021-10-29 06:04] LABS: Folate > 22.3 ng/mL (3.0-16.0); Vitamin B12 > 1500 pg/mL (250-1100)
[2021-10-29 06:23] LABS: % Iron Saturation 17 % (15-50); Transferrin 186 mg/dL (203-362)
[2021-10-29] MEDS: D5% in 0.45% NACL w KCl 20 MEQ/1,000 ML MLS IVC SCH ×3 (08:20→13:54)
[2021-10-29] MEDS: 0.9 % Sodium Chloride 1,000 ML IVC SCH ×2 (08:21→09:06)
[2021-10-29] MEDS: 0.45 % Sodium Chloride w/KCl 20 MEQ/1,000 ML MLS IVC SCH ×2 (08:21→09:06)
[2021-10-29] MEDS ORDERED: Apixaban 5 MG TABLET PO SCH (09:00)
[2021-10-29] MEDS ORDERED: *HR* Promethazine 25 MG/ML VIAL IM PRN (09:53)
[2021-10-29] MEDS ORDERED: Benzonatate 100 MG CAPSULE PO PRN (09:56)
[2021-10-29] MEDS ORDERED: *HR* LORazepam 1 MG TABLET PO PRN (09:57)
[2021-10-29] MEDS ORDERED: lisinopriL 10 MG TABLET PO SCH (10:00)
[2021-10-29] MEDS ORDERED: Sennosides 8.6 MG TABLET PO SCH (10:00)
[2021-10-29] MEDS ORDERED: *HR* OxyCODONE Immed Rel 5 MG TABLET PO PRN (10:03)
[2021-10-29] MEDS ORDERED: Gabapentin 400 MG CAPSULE PO SCH (10:15)
[2021-10-29 11:29] LABS: VBG HCO3 22 mEq/L (21-27); VBG PCO2 37 mmHg (41-51); VBG PH 7.38 pH Units (7.32-7.42); VBG PO2 116 mmHg (25-50)
[2021-10-29 12:54] LABS: Calcium 7.9 mg/dL (8.6-10.3); Potassium 3.3 mEq/L (3.5-5.1)
[2021-10-29 14:14] LABS: Amphetamine Screen,Urine Negative ng/mL (Cutoff=1000); Barbiturate Screen,Urine Negative ng/mL (Cutoff=200); Benzodiazepines Screen,Urine Negative ng/mL (Cutoff=200); Cannabinoid Screen,Urine Negative ng/mL (Cutoff = 50); Cocaine Screen,Urine Negative ng/mL (Cutoff= 300); Opiate Screen,Urine Negative ng/mL (Cutoff=300); Phencyclidine Screen,Urine Negative ng/mL (Cutoff=25)
[2021-10-29] MEDS ORDERED: Insulin DETEMIR 100 UNIT/ML X5UNITS SUBQ ONE (15:09)
[2021-10-29] MEDS ORDERED: D5% in Water 1,000 ML IVC PRN (15:11)
[2021-10-29] MEDS ORDERED: Dextrose Gel 15 GM/37.5 ML TUBE PO PRN ×2 (15:11)
[2021-10-29 16:28] VITALS: BP 152/90; TEMP 98.1; O2SAT 98
[2021-10-29] MEDS ORDERED: Insulin LISPRO 300 UNITS/3 ML VIAL SUBQ SCH ×2 (16:30→21:00)
[2021-10-29 16:31] VITALS: PULSE 81
[2021-10-29] MEDS ORDERED: QUEtiapine Fumarate 100 MG TABLET PO SCH (21:00)
[2021-10-30] MEDS ORDERED: Insulin DETEMIR 100 UNIT/ML X5UNITS SUBQ SCH (09:00)
== END 2021-10-29 18:10 | disposition left against medical advice (07) ==
LOC: EMEROOARM 20:10 → 2NNU 20:10 → SUATTDRO 10-29 02:08 → 2NNU 10-29 02:51
PROVIDERS: ADMIT Internal Medicine; ATTEND Internal Medicine

== ENCOUNTER 2021-12-07 22:22 | Observation (INO) ==
[2021-12-07] MEDS ORDERED: 0.9 % Sodium Chloride 1,000 ML IVC SCH (22:45)
[2021-12-08] MEDS ORDERED: Ondansetron 4 MG/2 ML VIAL IVP ONE (02:51)
[2021-12-08] MEDS ORDERED: Ketorolac 30 MG/ML VIAL IVP STA (02:51)
[2021-12-08 03:08] LABS: Basophils % 0.4 %; Eosinophils # 0.1 K/mcL (0.0-0.6); Hematocrit 32.2 % (35.3-44.9); Hemoglobin 10.6 g/dL (11.5-15.4); Immature Granulocytes % 0.1 % (0-4); Lymphocytes # 1.5 K/mcL (0.6-4.6); Lymphocytes % 21.5 %; Mean Corpuscular HGB Conc 32.9 g/dL (31.6-35.5); Mean Corpuscular Volume 91.2 fL (83.0-100.0); Mean Platelet Volume 10.2 fL (9.4-12.4); Monocytes # 0.3 K/mcL (0.0-1.3); Neutrophils # 5.2 K/mcL (1.6-8.9); Platelet Count 185 K/mcL (140-400); Red Blood Count 3.53 M/mcL (3.82-4.97); Red Cell Distribution Width 13.2 % (11.5-14.5); White Blood Count 7.2 K/mcL (4.3-11.1)
[2021-12-08 03:10] LABS: VBG HCO3 23 mEq/L (21-27); VBG PCO2 46 mmHg (41-51); VBG PO2 115 mmHg (25-50)
[2021-12-08] MEDS ORDERED: 0.9 % Sodium Chloride 1,000 ML IVC ONE (03:12)
[2021-12-08 03:24] LABS: Alanine Aminotransferase 7 Units/L (7-52); Albumin 3.3 g/dL (3.5-5.7); Alkaline Phosphatase 81 Units/L (34-104); Aspartate Amino Transferase 10 Units/L (13-39); BUN/Creatinine Ratio 14 (6-26); Bilirubin,Total 0.3 mg/dL (0.3-1.0); Blood Urea Nitrogen 30 mg/dL (6-20); Calcium 8.5 mg/dL (8.6-10.3); Carbon Dioxide 22 mEq/L (23-29); Chloride 101 mEq/L (98-107); Globulin 3.4 g/dL (2.4-3.5); Glucose 620 mg/dL (70-105); Magnesium 1.5 mg/dL (1.6-2.6); Osmolality,Calculated 311 (280-300); Potassium 3.5 mEq/L (3.5-5.1); Sodium 133 mEq/L (136-145); Total Protein 6.7 g/dL (6.4-8.9); Troponin I < 0.03 ng/mL (< 0.04); eGFR For African Americans 31 (> 60); eGFR For Non-African Americans 26 (> 60)
[2021-12-08] MEDS ORDERED: Magnesium Sulfate 1 GM/102 ML PIGGYBACK IVPB ONE ×3 (03:51→05:32)
[2021-12-08] MEDS ORDERED: Insulin Human Regular 5 UNIT in 0.9 % Sodium Chloride 10 ML IV ONE (04:08)
[2021-12-08 04:29] LABS: Influenza A PCR Negative (Negative); Influenza B PCR Negative (Negative); Resp. Syncytial Virus PCR Negative (Negative)
[2021-12-08 04:37] LABS: SARS-CoV-2 by PCR (In House) Negative (Negative)
[2021-12-08] MEDS ORDERED: D5% in Water 1,000 ML IVC PRN (04:55)
[2021-12-08] MEDS ORDERED: *HR* Dextrose 50 % in Water (Syg) 50 ML SYRINGE IVP PRN (04:55)
[2021-12-08] MEDS ORDERED: Dextrose 4 GM Chewable Tablets PO PRN ×2 (04:55)
[2021-12-08] MEDS ORDERED: Insulin DETEMIR 100 UNIT/ML X5UNITS SUBQ SCH ×2 (04:56→05:15)
[2021-12-08] MEDS ORDERED: Insulin LISPRO 300 UNITS/3 ML VIAL SUBQ ONE (05:00)
[2021-12-08] MEDS ORDERED: tiZANidine 4 MG TABLET PO PRN (05:02)
[2021-12-08] MEDS ORDERED: Ringers Solution, Lactated 1,000 ML IVC SCH (05:15)
[2021-12-08] MEDS ORDERED: Melatonin 3 MG TABLET PO PRN (05:28)
[2021-12-08] MEDS ORDERED: Ondansetron 4 MG/2 ML VIAL IVP PRN (05:28)
[2021-12-08] MEDS ORDERED: Naloxone 0.4 MG/ML INJ IVP PRN (05:28)
[2021-12-08 06:40] LABS: Lipase 8 Units/L (11-82)
[2021-12-08 07:12] LABS: Bilirubin,Urine Negative (Negative); Blood,Urine Negative (Negative); Clarity,Urine Clear (Clear); Color,Urine Colorless (Yellow); Glucose,Urine (UA) >=1000 mg/dL (Normal); Ketones,Urine Negative (Negative); Leukocyte Esterase,Urine Negative (Negative); Nitrite,Urine Negative (Negative); PH,Urine 6.5 pH Units (5.0-8.0); Protein,Urine Trace mg/dL (Neg-Trace); RBC,Urine 0-3 per hpf (0-3); Specific Gravity,Urine 1.019 (1.010-1.025); Squamous Epithelial Cell,Urine Few per hpf (None-Few); Urobilinogen,Urine Normal (Normal); WBC,Urine 0-3 per hpf (0-3)
[2021-12-08 07:19] LABS: Amphetamine Screen,Urine Negative ng/mL (Cutoff=1000); Barbiturate Screen,Urine Negative ng/mL (Cutoff=200)
[2021-12-08 07:21] LABS: Benzodiazepines Screen,Urine Positive ng/mL (Cutoff=300)
[2021-12-08 07:22] LABS: Cannabinoid Screen,Urine Negative ng/mL (Cutoff = 50); Cocaine Screen,Urine Negative ng/mL (Cutoff= 300); Opiate Screen,Urine Negative ng/mL (Cutoff=300); Phencyclidine Screen,Urine Negative ng/mL (Cutoff=25)
[2021-12-08] MEDS: Insulin LISPRO 300 UNITS/3 ML VIAL SUBQ SCH ×2 (08:37→12:11)
[2021-12-08] MEDS ORDERED: Apixaban 5 MG TABLET PO SCH (09:00)
[2021-12-08] MEDS ORDERED: lisinopriL 10 MG TABLET PO SCH (09:00)
[2021-12-08 09:53] LABS: Calcium 8.9 mg/dL (8.6-10.3)
[2021-12-08 10:36] VITALS: BP 144/77; PULSE 83; TEMP 97.1; O2SAT 97
[2021-12-08] MEDS ORDERED: Insulin LISPRO 300 UNITS/3 ML VIAL SUBQ SCH (21:00)
== END 2021-12-08 15:37 | disposition left against medical advice (07) ==
LOC: EMEROOARM 22:22 → 3NENU 22:22
PROVIDERS: ADMIT Internal Medicine; ATTEND Internal Medicine

== ENCOUNTER 2022-04-06 21:36 | Observation (INO) ==
[2022-04-06] MEDS ORDERED: 0.9 % Sodium Chloride 1,000 ML IV ONE (23:59)
[2022-04-07] MEDS ORDERED: Ibuprofen 600 MG TABLET PO ONE (01:07)
[2022-04-07] MEDS ORDERED: Ondansetron 4 MG/2 ML VIAL ONE (01:32)
[2022-04-07 01:40] LABS: Basophils % 0.3 %; Eosinophils # 0.2 K/mcL (0.0-0.6); Eosinophils % 2.9 %; Hematocrit 35.1 % (35.3-44.9); Hemoglobin 11.2 g/dL (11.5-15.4); Immature Granulocytes % 0.2 % (0-4); Lymphocytes # 1.5 K/mcL (0.6-4.6); Lymphocytes % 22.9 %; Mean Corpuscular HGB Conc 31.9 g/dL (31.6-35.5); Mean Corpuscular Hemoglobin 28.9 pg (28.0-33.3); Mean Corpuscular Volume 90.7 fL (83.0-100.0); Mean Platelet Volume 10.1 fL (9.4-12.4); Monocytes # 0.2 K/mcL (0.0-1.3); Monocytes % 3.5 %; Neutrophils # 4.6 K/mcL (1.6-8.9); Platelet Count 179 K/mcL (140-400); Red Blood Count 3.87 M/mcL (3.82-4.97); Red Cell Distribution Width 13.2 % (11.5-14.5); Segmented Neutrophils % 70.2 %; White Blood Count 6.5 K/mcL (4.3-11.1)
[2022-04-07 01:41] LABS: VBG HCO3 24 mEq/L (21-27); VBG PCO2 43 mmHg (41-51); VBG PH 7.35 pH Units (7.32-7.42); VBG PO2 55 mmHg (25-50)
[2022-04-07] MEDS ORDERED: Prochlorperazine 10 MG/2 ML VIAL IVP ONE (01:58)
[2022-04-07] MEDS ORDERED: Iopamidol - 370 500 ML MLS IVP ONE (01:59)
[2022-04-07] MEDS ORDERED: Insulin LISPRO 300 UNITS/3 ML VIAL SUBQ ONE (02:00)
[2022-04-07 02:25] LABS: Alanine Aminotransferase 38 Units/L (7-52); Albumin 3.8 g/dL (3.5-5.7); Albumin/Globulin Ratio 0.9 (1.1-2.2); Alkaline Phosphatase 183 Units/L (34-104); Aspartate Amino Transferase 30 Units/L (13-39); BUN/Creatinine Ratio 16 (6-26); Bilirubin,Direct 0.1 mg/dL (0.0-0.2); Bilirubin,Indirect 0.3 mg/dL (0.0-1.0); Bilirubin,Total 0.4 mg/dL (0.3-1.0); Blood Urea Nitrogen 35 mg/dL (6-20); Carbon Dioxide 23 mEq/L (23-29); Chloride 91 mEq/L (98-107); Globulin 4.2 g/dL (2.4-3.5); Glucose 782 mg/dL (70-105); Lipase 12 Units/L (11-82); Osmolality,Calculated 306 (280-300); Sodium 125 mEq/L (136-145); Troponin I < 0.03 ng/mL (< 0.04); eGFR For African Americans 30 (> 60); eGFR For Non-African Americans 25 (> 60)
[2022-04-07 03:32] LABS: Bilirubin,Urine Negative (Negative); Blood,Urine Negative (Negative); Clarity,Urine Turbid (Clear); Color,Urine Light-Yellow (Yellow); Glucose,Urine (UA) >=1000 mg/dL (Normal); Ketones,Urine Negative (Negative); Leukocyte Esterase,Urine Negative (Negative); Mucus,Urine Few per lpf (None-Few); Nitrite,Urine Negative (Negative); PH,Urine 5.5 pH Units (5.0-8.0); Protein,Urine Trace mg/dL (Neg-Trace); Squamous Epithelial Cell,Urine Few per hpf (None-Few); Urobilinogen,Urine Normal (Normal); WBC,Urine 0-3 per hpf (0-3)
[2022-04-07] MEDS ORDERED: Insulin Human Regular 10 UNIT in 0.9 % Sodium Chloride 10 ML IV ONE (03:47)
[2022-04-07] MEDS ORDERED: *HR* Dextrose 50 % in Water (Syg) 50 ML SYRINGE IVP PRN ×2 (03:49→06:40)
[2022-04-07] MEDS: Calcium Gluconate 1gm/50mL 1 GM/50 ML BAG IVPB SCH ×2 (04:03→04:36)
[2022-04-07] MEDS ORDERED: *HR* FentaNYL (PF) 100 MCG/2 ML VIAL IVP ONE (04:11)
[2022-04-07] MEDS ORDERED: SODIUM ZIRCONIUM CYCLOSILICATE 5 GM POWD.PACK PO ONE (05:05)
[2022-04-07] MEDS ORDERED: *HR* Promethazine 25 MG/ML VIAL IM PRN (05:05)
[2022-04-07] MEDS ORDERED: Naloxone 0.4 MG/ML INJ IVP PRN (05:05)
[2022-04-07] MEDS ORDERED: 0.9 % Sodium Chloride 1,000 ML IVC SCH (05:15)
[2022-04-07] MEDS ORDERED: D5% in Water 1,000 ML IVC PRN (06:40)
[2022-04-07] MEDS ORDERED: Dextrose Gel 15 GM/37.5 ML TUBE PO PRN ×2 (06:40)
[2022-04-07 07:02] LABS: Prothrombin Time 11.2 Seconds (9.4-12.1)
[2022-04-07 07:04] LABS: Activated Partial Thrombo Time 35.2 Seconds (26.0-36.0)
[2022-04-07 07:13] LABS: Magnesium 1.9 mg/dL (1.6-2.6); Phosphorous 5.1 mg/dL (2.7-4.5)
[2022-04-07] MEDS: 0.9 % Sodium Chloride 1,000 ML IVC SCH ×2 (07:42→08:51)
[2022-04-07 07:45] LABS: Calcium 9.9 mg/dL (8.6-10.3); Potassium 3.9 mEq/L (3.5-5.1)
[2022-04-07] MEDS: Insulin LISPRO 300 UNITS/3 ML VIAL SUBQ SCH ×7 (07:47→21:22)
[2022-04-07] MEDS: Insulin DETEMIR 100 UNIT/ML X5UNITS SUBQ SCH ×2 (07:48→21:22)
[2022-04-07] MEDS ORDERED: *HR* FentaNYL PATCH 25 MCG PATCH TD SCH (10:15)
[2022-04-07 10:44] LABS: Estimated Average Glucose 352 mg/dl; Hemoglobin A1C 13.9 %
[2022-04-07] MEDS ORDERED: Insulin LISPRO 300 UNITS/3 ML VIAL SUBQ SCH (12:00)
[2022-04-07] MEDS ORDERED: tiZANidine 4 MG TABLET PO PRN (14:06)
[2022-04-07] MEDS: *HR* Heparin 5,000 UNIT/ML VIAL SQ SCH ×2 (14:11→21:24)
[2022-04-07 14:35] LABS: Protein/Creatinine Ratio,Urine 0.67 mg/mg (0.00-0.20); Sodium, Urine 83.3 mEq/L
[2022-04-07] MEDS: Morphine Sulfate 2 MG/ML SYRINGE IVP PRN ×2 (16:25→22:01)
[2022-04-07] MEDS ORDERED: Gabapentin 400 MG CAPSULE PO SCH (21:00)
[2022-04-07] MEDS: *HR* LORazepam 1 MG TABLET PO PRN (21:24)
[2022-04-07] MEDS: QUEtiapine Fumarate 100 MG TABLET PO SCH (21:24)
[2022-04-07] MEDS: Gabapentin 400 MG CAPSULE PO SCH (21:24)
[2022-04-08 03:41] LABS: Calcium 8.4 mg/dL (8.6-10.3); Magnesium 1.5 mg/dL (1.6-2.6); Phosphorous 3.2 mg/dL (2.7-4.5); Potassium 3.7 mEq/L (3.5-5.1)
[2022-04-08] MEDS: *HR* Heparin 5,000 UNIT/ML VIAL SQ SCH ×3 (05:38→22:44)
[2022-04-08] MEDS: Morphine Sulfate 2 MG/ML SYRINGE IVP PRN ×3 (05:38→21:30)
[2022-04-08] MEDS ORDERED: Magnesium Sulfate 1 GM/102 ML PIGGYBACK IVPB ONE (07:45)
[2022-04-08] MEDS: Insulin LISPRO 300 UNITS/3 ML VIAL SUBQ SCH ×4 (08:42→20:12)
[2022-04-08] MEDS: estradioL 0.5 MG TABLET PO SCH (08:43)
[2022-04-08] MEDS: Cholecalciferol (D-3) 1,000 UNIT (25MCG) TABLET PO SCH (08:44)
[2022-04-08] MEDS: Gabapentin 400 MG CAPSULE PO SCH ×2 (08:44→20:12)
[2022-04-08] MEDS: Insulin DETEMIR 100 UNIT/ML X5UNITS SUBQ SCH ×2 (08:46→20:13)
[2022-04-08] MEDS: *HR* LORazepam 1 MG TABLET PO PRN (15:25)
[2022-04-08] MEDS: QUEtiapine Fumarate 100 MG TABLET PO SCH (20:12)
[2022-04-09] MEDS: *HR* LORazepam 1 MG TABLET PO PRN (02:31)
[2022-04-09 02:46] LABS: Basophils % 0.6 %; Eosinophils # 0.2 K/mcL (0.0-0.6); Eosinophils % 3.1 %; Hematocrit 32.8 % (35.3-44.9); Hemoglobin 10.9 g/dL (11.5-15.4); Immature Granulocytes % 0.2 % (0-4); Lymphocytes # 2.4 K/mcL (0.6-4.6); Lymphocytes % 45.8 %; Mean Corpuscular HGB Conc 33.2 g/dL (31.6-35.5); Mean Corpuscular Hemoglobin 28.8 pg (28.0-33.3); Mean Corpuscular Volume 86.8 fL (83.0-100.0); Mean Platelet Volume 9.6 fL (9.4-12.4); Monocytes # 0.2 K/mcL (0.0-1.3); Monocytes % 3.6 %; Neutrophils # 2.5 K/mcL (1.6-8.9); Platelet Count 213 K/mcL (140-400); Red Blood Count 3.78 M/mcL (3.82-4.97); Red Cell Distribution Width 13.2 % (11.5-14.5); Segmented Neutrophils % 46.7 %; White Blood Count 5.2 K/mcL (4.3-11.1)
[2022-04-09 03:05] LABS: Calcium 8.9 mg/dL (8.6-10.3); Potassium 3.5 mEq/L (3.5-5.1)
[2022-04-09] MEDS: Morphine Sulfate 2 MG/ML SYRINGE IVP PRN ×2 (03:32→09:30)
[2022-04-09] MEDS: *HR* Heparin 5,000 UNIT/ML VIAL SQ SCH ×2 (05:57→12:16)
[2022-04-09] MEDS: estradioL 0.5 MG TABLET PO SCH (09:29)
[2022-04-09] MEDS: Gabapentin 400 MG CAPSULE PO SCH (09:29)
[2022-04-09] MEDS: Cholecalciferol (D-3) 1,000 UNIT (25MCG) TABLET PO SCH (09:29)
[2022-04-09] MEDS: Insulin LISPRO 300 UNITS/3 ML VIAL SUBQ SCH ×2 (09:35→12:12)
[2022-04-09] MEDS: Insulin DETEMIR 100 UNIT/ML X5UNITS SUBQ SCH (09:37)
[2022-04-09 11:51] VITALS: BP 107/71; PULSE 87; TEMP 97.9; O2SAT 97
[2022-04-09] MEDS ORDERED: Insulin LISPRO 300 UNITS/3 ML VIAL SUBQ SCH ×2 (13:32)
== END 2022-04-09 15:02 | disposition home health service (06) ==
LOC: EMEROOARM 21:36 → 2NENU 21:36 → SUATTDRO 04-07 05:02 → 2NENU 04-07 06:15
PROVIDERS: ADMIT Internal Medicine; ATTEND Internal Medicine

== ENCOUNTER 2022-05-03 22:16 | Observation (INO) ==
[2022-05-04 02:59] LABS: Hemoglobin 10.9 g/dL (11.5-15.4); Mean Corpuscular HGB Conc 34.1 g/dL (31.6-35.5); Mean Corpuscular Hemoglobin 29.3 pg (28.0-33.3); Mean Platelet Volume 9.5 fL (9.4-12.4); Platelet Count 296 K/mcL (140-400); Red Blood Count 3.72 M/mcL (3.82-4.97); Red Cell Distribution Width 13.7 % (11.5-14.5); White Blood Count 11.3 K/mcL (4.3-11.1)
[2022-05-04 03:04] LABS: VBG HCO3 22 mEq/L (21-27); VBG PCO2 41 mmHg (41-51); VBG PH 7.35 pH Units (7.32-7.42); VBG PO2 71 mmHg (25-50)
[2022-05-04] MEDS ORDERED: Naloxone 0.4 MG/ML INJ IVP PRN (03:11)
[2022-05-04] MEDS ORDERED: D5% in 0.45% NACL w KCl 20 MEQ/1,000 ML MLS IVC PRN (03:15)
[2022-05-04] MEDS ORDERED: 0.9 % Sodium Chloride 1,000 ML IVC SCH (03:15)
[2022-05-04] MEDS ORDERED: 0.45 % Sodium Chloride w/KCl 20 MEQ/1,000 ML MLS IVC SCH (03:15)
[2022-05-04] MEDS ORDERED: 0.9 % Sodium Chloride w KCl 20 MEQ/1,000 ML MLS IVC SCH (03:15)
[2022-05-04] MEDS ORDERED: Insulin Regular, Human 100 UNIT/ML IV PRN (03:15)
[2022-05-04] MEDS ORDERED: D5% in 0.45% NACL 1,000 ML IVC PRN (03:15)
[2022-05-04] MEDS ORDERED: *HR* Dextrose 50 % in Water (Syg) 50 ML SYRINGE IVP PRN ×2 (03:15→07:55)
[2022-05-04 03:18] LABS: Calcium 8.6 mg/dL (8.6-10.3); Potassium 3.5 mEq/L (3.5-5.1)
[2022-05-04] MEDS ORDERED: 0.45 % Sodium Chloride w/KCl 20 MEQ/1,000 ML MLS IVC PRN (03:54)
[2022-05-04] MEDS ORDERED: 0.9 % Sodium Chloride 1,000 ML IVC PRN (03:54)
[2022-05-04] MEDS ORDERED: 0.9 % Sodium Chloride w KCl 20 MEQ/1,000 ML MLS IVC PRN (03:54)
[2022-05-04] MEDS: Vancomycin 1,250 MG/262.5 ML IV.SOLN IVPB SCH (06:16)
[2022-05-04] MEDS: Cefepime HCl 2,000 MG in 0.9 % Sodium Chloride 10 ML IVP SCH ×2 (06:17→18:58)
[2022-05-04] MEDS: *HR* Heparin 5,000 UNIT/ML VIAL SQ SCH ×3 (06:17→21:19)
[2022-05-04 06:39] LABS: VBG HCO3 22 mEq/L (21-27); VBG PCO2 34 mmHg (41-51); VBG PH 7.42 pH Units (7.32-7.42); VBG PO2 153 mmHg (25-50)
[2022-05-04] MEDS ORDERED: Dextrose Gel 15 GM/37.5 ML TUBE PO PRN ×2 (07:55)
[2022-05-04] MEDS ORDERED: D5% in Water 1,000 ML IVC PRN (07:55)
[2022-05-04] MEDS: Insulin DETEMIR 100 UNIT/ML X5UNITS SUBQ SCH ×2 (08:28→21:19)
[2022-05-04] MEDS ORDERED: cefTRIAXone 1,000 MG in Water for inj. (sterile) 10 ML IVP SCH (09:00)
[2022-05-04 10:58] LABS: Calcium 8.5 mg/dL (8.6-10.3); Potassium 3.1 mEq/L (3.5-5.1)
[2022-05-04] MEDS: Insulin LISPRO 300 UNITS/3 ML VIAL SUBQ SCH ×2 (11:36→17:22)
[2022-05-04 15:16] LABS: Calcium 8.5 mg/dL (8.6-10.3); Potassium 3.1 mEq/L (3.5-5.1)
[2022-05-04] MEDS ORDERED: Potassium Chloride Elixir 20 MEQ/15 ML UDC PO ONE (17:57)
[2022-05-04 18:03] LABS: Calcium 8.6 mg/dL (8.6-10.3)
[2022-05-04] MEDS ORDERED: Potassium Chloride Elixir 20 MEQ/15 ML UDC ONE (18:42)
[2022-05-04] MEDS ORDERED: Prochlorperazine 10 MG/2 ML VIAL IVP PRN (19:37)
[2022-05-04] MEDS ORDERED: Insulin LISPRO 300 UNITS/3 ML VIAL SUBQ SCH (21:00)
[2022-05-04 22:27] LABS: Estimated Average Glucose 312 mg/dl; Hemoglobin A1C 12.5 %
[2022-05-05] MEDS: Cefepime HCl 2,000 MG in 0.9 % Sodium Chloride 10 ML IVP SCH (04:44)
[2022-05-05] MEDS: *HR* Heparin 5,000 UNIT/ML VIAL SQ SCH (04:45)
[2022-05-05] MEDS: Vancomycin 1,250 MG/262.5 ML IV.SOLN IVPB SCH (04:45)
[2022-05-05 05:54] LABS: Basophils % 0.2 %; Hemoglobin 11.2 g/dL (11.5-15.4); Immature Granulocytes % 0.4 % (0-4); Lymphocytes # 1.2 K/mcL (0.6-4.6); Lymphocytes % 15.1 %; Mean Corpuscular HGB Conc 32.9 g/dL (31.6-35.5); Mean Corpuscular Hemoglobin 28.4 pg (28.0-33.3); Mean Corpuscular Volume 86.3 fL (83.0-100.0); Mean Platelet Volume 9.6 fL (9.4-12.4); Monocytes # 0.3 K/mcL (0.0-1.3); Monocytes % 4.1 %; Neutrophils # 6.6 K/mcL (1.6-8.9); Platelet Count 323 K/mcL (140-400); Red Blood Count 3.94 M/mcL (3.82-4.97); Red Cell Distribution Width 13.2 % (11.5-14.5); Segmented Neutrophils % 80.2 %; White Blood Count 8.2 K/mcL (4.3-11.1)
[2022-05-05] MEDS ORDERED: Gadolinium Contrast Agent (WT Based) IV PRN (08:37)
[2022-05-05 08:54] LABS: Albumin 3.6 g/dL (3.5-5.7); Albumin/Globulin Ratio 0.9 (1.1-2.2); Bilirubin,Total 0.5 mg/dL (0.3-1.0); Calcium 8.8 mg/dL (8.6-10.3); Globulin 4.1 g/dL (2.4-3.5); Magnesium 1.4 mg/dL (1.6-2.6); Potassium 3.5 mEq/L (3.5-5.1); Total Protein 7.7 g/dL (6.4-8.9)
[2022-05-05] MEDS ORDERED: Insulin DETEMIR 100 UNIT/ML X5UNITS SUBQ SCH (09:00)
[2022-05-05] MEDS: Insulin LISPRO 300 UNITS/3 ML VIAL SUBQ SCH (10:01)
[2022-05-05 10:18] VITALS: PULSE 68
[2022-05-05 11:21] VITALS: BP 155/77; TEMP 98.4; O2SAT 98
== END 2022-05-05 13:05 | disposition left against medical advice (07) ==
LOC: 2NNU
PROVIDERS: ADMIT Internal Medicine; ATTEND Internal Medicine